=== PATIENT | male | born 1980 | race Caucasian/White ===

== ENCOUNTER 2018-11-17 16:39 | Emergency (ER) | payer MEDICAID, SELFPAY ==
[2018-11-17 16:39] VITALS: BP 152/73; PULSE 78; RESP 16; TEMP 36.6; O2SAT 100; BMI 29.0
--- NOTE | 2018-11-17 17:08 | CT_ITS ---
STUDY: CT ABDOMEN AND PELVIS WITHOUT CONTRAST REASON FOR EXAM: Male, 38 years old. Diffuse abdominal pain. Fever. RADIATION DOSAGE (If Supplied By Facility): CTDIvol = ( 9.22 ) mGy, DLP = ( 458.17 ) mGycm TECHNIQUE: Transaxial images were obtained from the dome of the diaphragm to the symphysis pubis without oral contrast, and without intravenous contrast. Sagittal and coronal images were reconstructed. Individualized dose optimization techniques were used for this CT. COMPARISON: 09/16/2016 FINDINGS: Evaluation of the abdominal viscera is limited in the absence of intravenous contrast. The visualized lung bases are clear. The visualized portions of the heart and pericardium are within normal limits. There are no calcified gallstones present. The liver demonstrates an unremarkable unenhanced appearance. The spleen is normal in size. The pancreas demonstrates an unremarkable unenhanced appearance. The adrenal glands are within normal limits. There are no renal or ureteral stones. There is no hydronephrosis. Normal visualized stomach. There is no bowel obstruction or inflammation. The appendix is visualized and appears normal. The aorta is normal in caliber. There is no abdominal or pelvic free air, free fluid, fluid collection or lymphadenopathy. There are no destructive osseous lesions. CT/Abdomen/Pelvis without Cont IMPRESSION: No acute abdominal or pelvic pathology demonstrated on this noncontrast CT. Electronically Signed: Hemant Marroquin, at 18:20 EST Tel , Service support ,
[2018-11-17] MEDS: 0.9% Normal Saline 1,000 ML 1000 ML IV (17:18)
[2018-11-17] MEDS: Ketorolac 30 MG/ML Syringe IV (17:18)
[2018-11-17] MEDS: Ondansetron 4 MG/2 ML Vial IV (17:18)
[2018-11-17 17:22] LABS: Absolute Lymphocyte Count 2.59 X10^3/ul (0.83-4.51); Absolute Neutrophil Count 2.5 X10^3/uL (2.0-7.7); Basophil# 0.03 X10^3/uL; Basophil% 0.5 % (0-1); Eosinophil# 0.08 X10^3/uL; Eosinophils% 1.4 % (0-5); Hematocrit 40.6 % (40-54); Hemoglobin 13.8 g/dl (13.0-16.5); Lymphocyte # 2.59 X10^3/ul (4.0); Lymphocyte % 45.4 % (19-41); Mean Corpuscular Hgb 29.7 pg (27.0-32.0); Mean Corpuscular Volume 87.3 fL (80-94); Mean Platelet Vol. 9.6 fl (6.2-12.0); Monocyte# 0.45 X10^3/uL; Monocyte% 7.9 % (0-10); Neutrophil # 2.54 X10^3/uL (2.7-7.7); Neutrophil % 44.6 % (47-70); POSITIVE COUNT NO; POSITIVE DIFFERENTIAL NO; POSITIVE MORPHOLOGY NO; Platelet Count 155 K/mm3 (150-450); RBC Distribution Width CV 12.4 % (11.6-14.6); RBC Distribution Width SD 38.7 fl (35.1-43.9); Red Blood Count 4.65 M/mm3 (4.6-6.2); White Blood Count 5.7 K/mm3 (4.4-11.0)
[2018-11-17 17:32] LABS: Anion Gap 7 (5-15); BUN 16 mg/dL (7-18); Calcium,Total 8.3 mg/dL (8.5-10.1); Chloride 108 mmol/L (98-107); Creatinine, Serum 0.94 mg/dL (0.70-1.30); EST Glomerular Filtration Rate 95 mL/min (>60); Est Glom Filt Rate - Afr Amer 115 mL/min (>60); Estimated Creatinine Clearance 99.62 ml/min; Glucose 89 mg/dL (74-106); Potassium 3.5 mmol/L (3.5-5.1); Sodium Level 140 mmol/L (136-145)
[2018-11-17 17:46] LABS: Bacteria 0 SEEN /hpf (None Seen); Mucous, Urine 0 SEEN /hpf (<or=2+); Red Blood Cells-Urine 0 SEEN /hpf (0-5); Squamous Epithelial Cells - UA 0 SEEN /hpf (0-5); White Blood Cells 0 SEEN /hpf (0-5)
[2018-11-17 17:53] LABS: Color, Urine Yellow (Yellow); Glucose, Dipstick Normal (Normal); Ketone-Dipstick Negative (Negative); Leukocyte Esterase-Dipstick Negative /ul (Negative); Nitrite-Dipstick Negative (Negative); Occult Blood-Urine Negative /ul (Negative); Protein-Dipstick Negative (Negative); Specific Gravity, Urine 1.015 (1.002-1.030); Urine Bilirubin Dipstick Negative (Negative); Urine Clarity Clear (Clear); Urine Urobilinogen Normal (Normal); Urine pH 6.5 (5.0 - 8.0)
[2018-11-17] MEDS: proMETHazine 25 MG/ML Syringe 6.25 MG IV (18:25)
[2018-11-17 19:39] VITALS: BP 110/65; PULSE 60; RESP 15; O2SAT 100
--- NOTE | 2018-11-17 20:00 | ED.DCSUM_ITS ---
- ER Visit Summary Date of Service: 11/17/18 Chief Complaint: Bilateral flank pain History of Present Illness: The patient is a 38 M reports lower back pain rating into the groin lines since last week. He was seen in urgent care on November 12. He states his urine had a small amount of blood in it. He was started on Bactrim. He still has pain and feels like his abdomen is bloated. He describes urinary frequency which is sometimes painful. Today pain seemed to radiate into the scrotum. He denies possibility of STD. He did have history of UTIs in the past. Physical Examination: Vital signs gross unremarkable. Patient sitting upright in bed. He is in no acute distress. Head neck examination normal. Heart is regular rate and rhythm. Lungs sounds are clear. Abdomen is soft with mild diffuse tenderness throughout. No guarding or rebound. Hypoactive bowel sounds noted. Test Results: CBC and chemistry studies normal. Urinalysis normal. CT flank shows no acute pathology. Emergency Department Course and Treatment: Patient was given Toradol and Zofran followed by dose of Phenergan for continued nausea. Postvoid residual was checked and is less than 19 cc. Test results are discussed with the patient. We discussed the possibility of a partially treated prostatitis and that he has been on Bactrim. We will continue this for a longer course and he is referred to urology for follow-up. Treatment Plan: [] Disposition: Discharge Impression: Flank pain This note was generated with [employer] dictation software. It may contain incorrect words, spelling, and punctuation that were not noted in review of the chart prior to signing ED Disposition - Plan for ED Patient: Referrals: Martha Fraga PA [Primary Care Provider] -
--- NOTE | 2018-11-17 20:00 | ED.DEP ---
ED Disposition - Plan for ED Patient: Disposition: Home or Assisted Living Instructions: ED Flank Pain Uncertain Cause Prescriptions: Ondansetron [Zofran Odt] 4 mg PO Q8H PRN PRN #10 tablet PRN Reason: Nausea Naproxen [Naprosyn] 500 mg PO BID PRN PRN #20 tablet PRN Reason: Pain Smz/Tmp Ds [Bactrim Ds] 1 tablet PO BID #28 tablet Referrals: Martha Fraga PA [Primary Care Provider] - Jsaiel Dunn MD [STAFF PHYSICIAN] - 1 Week
[2018-11-17 20:21] VITALS: PULSE 71; RESP 18; O2SAT 99
--- NOTE | 2018-11-17 20:23 | ED.RN ---
THIS NURSE REVIEWED D/C INSTRUCTIONS WITH PT. PT VERBALIZED UNDERSTANDING OF INSTRUCTIONS. IV D/C. IV CATHETER INTACT. PT TOLERATED WELL. PT DENIES FURTHER NEEDS OR QUESTIONS AT THIS TIME
== END 2018-11-17 20:24 | disposition home or self-care (01) ==
PROVIDERS: Emergency Provider Emergency Medicine; Family Provider Physician Assistant; PCP Physician Assistant
DX: R10.9 Unspecified abdominal pain (principal); M54.9 Dorsalgia, unspecified; R30.0 Dysuria; R35.0 Frequency of micturition; R11.0 Nausea; Z87.891 Personal history of nicotine dependence; Z87.440 Personal history of urinary (tract) infections
CPT/HCPCS: 74176; 80048; 81001; 85025; 96361; 96374; 96375; 99284; J7030; J2405

== ENCOUNTER 2020-10-30 23:41 | Emergency (ER) | payer MEDICAID, SELFPAY ==
[2020-10-30 23:42] VITALS: BP 125/74; PULSE 90; RESP 16; TEMP 36.4; O2SAT 98; BMI 28.2
--- NOTE | 2020-10-30 23:50 | ED.VIS.GEN ---
History of Present Illness Chief Complaint: Headache Informant: Patient Narrative: 40-year-old male presenting for evaluation of body aches, scratchy throat, headache, cough which is nonproductive. Patient states symptoms started on Friday. Patient has had a fever as high as 100 ?F. Patient does not have any shortness of breath, chest pain. No nausea, vomiting, diarrhea. Patient states that his children had a low-grade fever last week. He was sure that it was not coronavirus but did not have his child tested. Patient states child is now recovered. Nobody else is sick at home. Patient works in [email or web address] and has not had any exposure otherwise to Covid?19. Prior similar symptoms: No Recent Illness/Hospitalization: No Past Medical History - Allergies and Home Meds Allergies/Adverse Reactions: Allergies hydrocodone Adverse Reaction (Verified 10/30/20 23:45) Other oxycodone [Oxycodone] Adverse Reaction (Verified 10/30/20 23:45) Other Prior records reviewed: Yes Past Medical History: - - OCD, anxiety Lives: Spouse/ Significant Other Smoking Status: Current every day smoker Alcohol: None Drugs: None Review of Systems General: Reports: Fever Eyes: Denies: Visual changes - bilaterally, Diplopia ENT: Denies: Rhinorrhea, Sore throat Cardiovascular: Denies: Chest pain, Palpitations Respiratory: Reports: Cough. Denies: Dyspnea Gastrointestinal: Denies: Abdominal pain, Nausea, Vomiting, Diarrhea, Melena, Hematochezia Genitourinary: Denies: Dysuria, Hematuria, Frequency Musculoskeletal: Reports: Myalgias. Denies: Arthralgias Skin: Denies: Rash, Abscess Neurological: Reports: Headache. Denies: Parasthesia, Numbness Psych: Denies: Depression, Anxiety Endocrine: Denies: Polyuria, Polydipsia Physical Exam Vital Signs/Narrative: Vital Signs Temp Pulse Resp BP Pulse Ox 10/30/20 23:42 97.5 F L 90 16 125/74 H 98 Inital Vital Signs reviewed: Yes General: Well nourished, No Acute Distress Eyes: Perrl, EOMI ENT: Moist mucous membranes, No rhinorrhea Neck: Supple, Nontender Cardiovascular: Regular rate, Regular rhythm Respiratory: No distress, CTA bilaterally Abdomen: Soft, Nontender Extremities: Nontender, No edema Skin: Normal color, No rash Neurological: Alert, Oriented x3, Cranial nerves II-XII grossly intact Psychological: Normal affect, Normal Mood Diagnostic/Tx/Re-eval - Medical Decision Making Patient presenting with low-grade fever, myalgias, cough, headache. Patient likely exposed to Covid?19 by his child. Patient has no other sick contacts that he knows of. Patient will be tested for Covid?19 and will quarantine until test results return. Patient was given a shot of Toradol in ED for his headache. Patient given return precautions. Patient stable for discharge at this time. Impression: 1. Viral syndrome 2. Headache ED Disposition - Plan for ED Patient: Instructions: Coronavirus Disease 2019 (COVID-19): Overview, Coronavirus Disease 2019 (COVID-19): Caring for Yourself or Others, Pending Outpatient COVID Test
[2020-10-31] MEDS: Ketorolac 15 MG/ML Vial IM (00:10)
[2020-10-31 00:29] VITALS: PULSE 76; RESP 16; O2SAT 98
== END 2020-10-31 00:31 | disposition home or self-care (01) ==
PROVIDERS: Emergency Provider Student in an Organized Health Care Education/Training Program
DX: B34.9 Viral infection, unspecified (principal); R51.9 Headache, unspecified; F42.9 Obsessive-compulsive disorder, unspecified; F41.9 Anxiety disorder, unspecified; F17.200 Nicotine dependence, unspecified, uncomplicated; Z88.5 Allergy status to narcotic agent
CPT/HCPCS: 87635; 99282; U0005; U0003

== ENCOUNTER 2020-11-01 07:11 | Emergency (ER) | payer MEDICAID, SELFPAY ==
[2020-11-01 07:12] VITALS: BP 116/75; PULSE 86; RESP 16; TEMP 36.3; O2SAT 96; BMI 30.4
[2020-11-01 07:30] VITALS: O2SAT 98
--- NOTE | 2020-11-01 07:35 | RAD_ITS ---
STUDY: X-RAY CHEST REASON FOR EXAM: Male, 40 years old. sob, cough, covid postive yesterday TECHNIQUE: Single AP portable view of the chest. COMPARISON: 08/29/2015. FINDINGS: Cardiac silhouette unremarkable. Minimal congestion. Aorta unremarkable. No focal patchy airspace opacities. No pleural effusions. Upper abdomen unremarkable. Osseous structures intact. No pneumothorax. RAD/Chest 1 View (Portable) IMPRESSION: No focal patchy airspace opacities or effusions Minimal congestion Electronically Signed: Shiv Krueger DO at 8:03 EST Tel , Service support ,
--- NOTE | 2020-11-01 07:51 | ED.DCSUM_ITS ---
History of Present Illness Chief Complaint: Shortness of Breath Informant: Patient Onset: Days - Patient states respiratory symptoms started Friday. Context: Sudden Onset Timing: Continuous Quality: Upper respiratory with productive cough Location: Respiratory Current Severity: Moderate Maximum Severity: Severe Worsened by: Anxiety and Covid dyspnea Relieved by: Nothing Associated Symptoms: Cough productive of colored sputum Narrative: Is a 40-year-old male who works from home. He was seen on Friday. Covid test is pending. He went to [facility] yesterday and was informed that his Covid test was positive. He does report headache. Eyes photophobia, neck pain or neck stiffness. He reports mild congestion. He denies loss of taste or smell. He denies ear pain, drainage or ringing in his ears. He does report shortness of breath. The shortness of breath is worse with activity. He denies history of VTE. He denies leg pain, swelling discoloration. He denies nausea, vomiting diarrhea. He denies rash. He denies discoloration of his digits upper or lower extremity. He denies allergy to antibiotics. Prior similar symptoms: Yes Recent Illness/Hospitalization: Yes - Past Medical History (1) 2019 novel coronavirus disease (COVID-19) Status: Acute Past Medical History - Allergies and Home Meds Allergies/Adverse Reactions: Allergies hydrocodone Adverse Reaction (Verified 11/01/20 07:12) Other oxycodone [Oxycodone] Adverse Reaction (Verified 11/01/20 07:12) Other Primary Care Physician: LEWIS MEJIA [Other] Prior records reviewed: Yes Surgical History: no surgical history Lives: Alone Smoking Status: Never smoker Alcohol: None Drugs: None Review of Systems General: Reports: Malaise. Denies: Chills, Fever, Subjective, Sweats Eyes: Denies: Visual changes - bilaterally, Blurred Vision - bilaterally, Diplopia ENT: Reports: Rhinorrhea, Sore throat. Denies: Bilateral ear pain Cardiovascular: Denies: Chest pain, Palpitations Respiratory: Reports: Dyspnea, Cough, Sputum, Dyspnea on exertion. Denies: Orthopnea, Paroxysmal nocturnal dyspnea Gastrointestinal: Denies: Abdominal pain, Nausea, Vomiting, Diarrhea, Melena, Hematochezia Genitourinary: Denies: Dysuria, Hematuria, Frequency Musculoskeletal: Reports: Myalgias, Arthralgias. Denies: Neck pain, Back pain, Swelling, Extremity Pain Skin: Denies: Rash, Wounds Neurological: Reports: Headache. Denies: Weakness, Parasthesia Psych: Reports: Depression Endocrine: Denies: Polyuria, Polydipsia Hematologic: Denies: Easy bruising, Easy bleeding Physical Exam Vital Signs/Narrative: Vital Signs Temp Pulse Resp BP Pulse Ox 11/01/20 07:12 97.3 F L 86 16 116/75 96 Inital Vital Signs reviewed: Yes General: Well nourished, Well developed, Acute Distress - Patient appears anxious. Patient arrived in [facility] with zita mccoy. Head: Normocephalic, Atraumatic Eyes: Perrl, EOMI. Negative for: Pale conjunctiva, Scleral icterus ENT: Moist mucous membranes, TM's clear. Negative for: No rhinorrhea Neck: Supple, Nontender, No lymphadenopathy, No JVD Cardiovascular: Regular rate, Regular rhythm, No murmurs, Normal S1, Normal S2 Respiratory: No distress, Chest nontender, Rales - Lower lobe on the right. Negative for: CTA bilaterally Abdomen: Soft, Nontender, Nondistended, Normal bowel sounds Back: Nontender, Normal Inspection Extremities: Nontender, No edema, - - There is no asymmetry, swelling, discoloration, leg vein distention, palpable cords or tenderness along the distribution of the deep venous system. Skin: Normal color, No rash, No Trauma. Negative for: Cyanosis, Diaphoresis, Jaundice Neurological: Alert, Oriented x3, Cranial nerves II-XII grossly intact, Normal Strength, Normal Sensation Psychological: - - Patient is animated. Diagnostic/Tx/Re-eval Chest X-Ray - ED: 1 View, Read by ED Physician, Normal, Heart, Mediastinum, Bony Structures, - - X-rays interpreted by me at 0750. Single portable view. There is increased interstitial markings right lower lobe consistent with Covid pneumonia. 11/01/20 07:35 Chest 1 View (Portable) [RAD] Stat - Medical Decision Making Clinically patient has Covid pneumonia. Vital signs are unremarkable. Patient does not meet criteria for monoclonal antibody treatment. Chest x-ray was obtained to evaluate for infiltrate. Since patient does have infiltrate he was treated with Decadron and discharged with prescription for Decadron. Patient was informed he may have symptoms for 5-10 more days. Charge with appropriate home-going instructions for Covid. ED Disposition - Plan for ED Patient: Disposition: Home or Assisted Living Diagnosis: Pneumonia due to COVID-19 virus Instructions: Coronavirus Disease 2019 (COVID-19): Caring for Yourself or Others Prescriptions: Dexamethasone [Decadron] 6 mg PO DAILY 5 Days tab Prescription Printed Referrals: LEWIS MEJIA [Other] - 10-14 Days if not better
[2020-11-01 08:10] VITALS: BP 124/69; PULSE 77; RESP 15; O2SAT 98
[2020-11-01] MEDS: dexAMETHasone 4 MG Tablet 6 MG PO (08:10)
== END 2020-11-01 08:19 | disposition home or self-care (01) ==
LOC: ED 08:17
PROVIDERS: Emergency Provider Emergency Medicine
DX: U07.1 COVID-19 (principal); J12.82 Pneumonia due to coronavirus disease 2019; Z88.5 Allergy status to narcotic agent
CPT/HCPCS: 71045; 99284

== ENCOUNTER 2022-02-11 07:46 | Emergency (ER) | payer MEDICAID, SELFPAY ==
[2022-02-11 07:47] VITALS: BP 108/90; PULSE 107; RESP 16; TEMP 36.4; O2SAT 95; BMI 25.0
--- NOTE | 2022-02-11 08:08 | RAD_ITS ---
STUDY: X-RAY - LEFT FOOT CLINICAL: Male, 41 years old. Injury/Pain to the great toe. TECHNIQUE: 3 view(s) of the foot. COMPARISON: None. FINDINGS: Normal talus, calcaneus, and tarsal bones. Normal visualized subtalar, talonavicular, calcaneocuboid, tarsal and tarsometatarsal articulations. Normal metatarsi. Normal metatarsophalangeal joint of the great toe. Normal tibial and fibular sesamoid bones. Normal interphalangeal joint of the great toe. Normal phalanges of the great toe. Normal second through fifth metatarsophalangeal joints. Normal interphalangeal joints and phalanges of the lesser toes. Soft tissue swelling. RAD/Foot min 3 Views IMPRESSION: Soft tissue swelling. No fracture is seen. Electronically Signed: Deshaun Santillan MD at 8:28 EDT ,
--- NOTE | 2022-02-11 08:09 | ED.VIS.LOWEX ---
HPI History of Present Illness Chief Complaint: Lower Extremity Injury Informant: patient Narrative Narrative: Patient is presenting with left great toe injury. Patient states he stubbed left great toe on a step this morning. Went to put his shoe on and had pain and everything felt wet. Took the shoe off and realized the nail was coming off the great toe and there is bleeding. Denies any prior injuries to this area. Denies any numbness or tingling. No other injuries or complaints reported. Came to the emergency room for further evaluation. Did not take anything for pain prior to arrival. Tetanus Immunization: Unknown PFSH PFSH Home Medications fluvoxamine 150 mg PO QHS 09/16/16 [History Last Taken Unknown] dexamethasone 6 mg PO DAILY 5 Days tab 11/01/20 [Rx Last Taken Unknown] ibuprofen 600 mg PO Q6H PRN PRN #20 tab 02/11/22 [Rx Last Taken Unknown] tramadol 50 mg PO Q8H PRN #9 tab 02/11/22 [Rx Last Taken Unknown] Allergy/AdvReac Type Severity Reaction Status Date / Time hydrocodone AdvReac Other Verified 02/11/22 07:54 oxycodone [Oxycodone] AdvReac Other Verified 02/11/22 07:54 Social History Smoking Status: Never smoker ROS ROS ED Constitutional Constitutional ED: Denies chills or fever(s) Eyes Eyes: Denies blurry vision ENT ENT ED: Denies sore throat Cardiovascular Cardiovascular: Denies chest pain Respiratory/Chest Respiratory/Chest: Denies dyspnea Gastrointestinal Gastrointestinal: Denies nausea or vomiting Musculoskeletal Musculoskeletal: Reports other Details: Left foot pain Integumentary Reports Abrasions and other Details: Injury to the left great toenail Neurologic Neurologic: Denies paresthesias or weakness Hematologic/Lymphatic Hematologic/Lymphatic: Denies easy bleeding or easy bruising EXAM Physical Exam Const Vital Signs: 02/11/22 07:47 Temperature 97.5 F L Temperature Source Temporal Pulse Rate 107 H Respiratory Rate 16 Blood Pressure 108/90 H Blood Pressure Mean 96 Pulse Ox 95 Oxygen Delivery Method Room Air Positive well nourished and well developed General Appearance ED: well developed and NAD HEENT normocephalic and atraumatic Neck full ROM and supple Chest Wall inspection of chest normal Resp normal respiratory effort and clear to auscultation bilaterally Cardio regular rate, regular rhythm and no murmurs Cardio Narrative: 2+ DP pulse on the left foot Extremity full ROM Extremity Narrative: No obvious deformity of the left great toe. Movement intact. General Extremety ED: Negative for edema General Extremity: Negative for edema Neuro oriented x3 Sensorium / Orientation: alert Psych mental status grossly normal Skin Skin Narrative: Patient is partial avulsion of the left great toenail with underlying bleeding. There is a 1 cm laceration to the medial nail bed as well. No active bleeding at this time appreciated. MDM MDM MDM Narrative Medical decision making narrative: Patient is evaluated for injury to the left great toe nail. Patient appears nontoxic but anxious and uncomfortable. Initially is given Motrin and tetanus is updated. Patient appears to have a nail avulsion of the left great toe. X-ray obtained does not show any acute fracture. X-ray interpreted by myself as well as radiology. Areas anesthetized with a digital block using lidocaine. Patient tolerated this relatively well. Nail is fully removed using pressure and there is not appear to be any significant lacerations associated with this. Xeroform and bandage applied and patient is given a postop shoe. Is given podiatry for outpatient follow-up. Given a dose of tramadol prior to discharge. Prescription for Motrin 600 mg and tramadol is sent. Patient's reaction to oxycodone and hydrocodone is altered mental state so we will trial tramadol instead. Counseled on return precautions. Patient verbalizes agreement understand this plan. Discharged home in stable condition. Radiography Diagnostic Testing: Clinical Impression(s) from Imaging Studies Foot X-Ray 02/11/22 08:08 IMPRESSION: Soft tissue swelling. No fracture is seen. Electronically Signed: Deshaun Santillan MD at 8:28 EDT , Discharge Plan Triage Chief Complaint: Lower Extremity Injury ED Provider: Fani Tafoya Dx/Rx/DC Orders Instructions: ED Detached Fingernail or Toenail Prescriptions: New tramadol 50 mg tablet 50 mg PO Q8H PRN (Reason: pain) Qty: 9 RF: 0 ibuprofen 600 mg tablet 600 mg PO Q6H PRN PRN (Reason: fever or pain) Qty: 20 RF: 0 No Action fluvoxamine 50 MG tablet 150 mg PO QHS RF: 0 dexamethasone 6 MG tablet 6 mg PO DAILY 5 Days RF: 0 Primary Care Provider: Care Physician,No Primary Referrals: Angela Buitrago DPM [STAFF PHYSICIAN] - Care Physician,No Primary [Primary Care Provider] - Disposition Disposition: Home, Self Care Discharge Date/Time: 02/11/22 10:43
[2022-02-11] MEDS: Ibuprofen 600 MG Tablet PO (08:11)
[2022-02-11] MEDS: Lidocaine 1% (20 ml mdv) 20 ML Vial INFILT (08:16)
[2022-02-11] MEDS: Diphth,Pertuss(Acell),Tet Vac 0.5 ML Vial IM (09:31)
[2022-02-11] MEDS: traMADol 50 MG Tablet PO (10:33)
== END 2022-02-11 10:43 | disposition home or self-care (01) ==
PROVIDERS: Emergency Provider Emergency Medicine; Visit Provider Emergency Medicine
DX: S91.112A Laceration without foreign body of left great toe without damage to nail, initial encounter (principal); Z23 Encounter for immunization; W18.40XA Slipping, tripping and stumbling without falling, unspecified, initial encounter
CPT/HCPCS: 64450; 73630; 90471; 90715; 99285

== ENCOUNTER 2023-01-06 22:15 | Emergency (ER) | payer MEDICAID, SELFPAY ==
[2023-01-06 22:16] VITALS: BP 117/67; PULSE 76; RESP 20; TEMP 36.9; O2SAT 100; BMI 31.6
--- NOTE | 2023-01-06 23:25 | CT_ITS ---
INDICATION: headache EXAMINATION: CT FACIAL BONES - CT Maxillofacial W/O Contrast Injection TECHNIQUE: Helically acquired images were obtained of the facial bones. A radiation dose optimization technique was used for this scan. IV Contrast dosage and agent: None. COMPARISON: None. FINDINGS: SOFT TISSUES: No focal subcutaneous swelling. No discrete fluid collections. VISUALIZED PARANASAL SINUSES: Clear. VISUALIZED MASTOID AIR CELLS: Clear. FACIAL BONES, MANDIBLE AND TMJs: No displaced facial bone fracture. No lytic or blastic abnormality. VISUALIZED DENTITION: No periodontal osseous erosion. ORBITAL CONTENTS: Both globes, extraocular muscles and retrobulbar fat appear unremarkable. CT/Sinus/Facial Bone IMPRESSION: Unremarkable CT of the facial bones. Electronically Signed: Radha Deng MD at 0:10 EDT ,
[2023-01-06] MEDS: 0.9% Normal Saline 1,000 ML 999 ML IV (23:46)
[2023-01-06] MEDS: DiphenhydrAMINE 50 MG/ML Syringe 25 MG IV (23:46)
[2023-01-06] MEDS: dexAMETHasone 10 MG/ML Vial IV (23:47)
[2023-01-06] MEDS: Ketorolac 30 MG/ML Syringe IV (23:49)
[2023-01-06 23:56] LABS: Mucous, Urine 0 SEEN /hpf (<or=2+); Red Blood Cells-Urine 0 SEEN /hpf (0-5); White Blood Cells 0 SEEN /hpf (0-5)
[2023-01-06 23:57] LABS: Absolute Lymphocyte Count 2.33 X10^3/uL (0.83-4.51); Absolute Neutrophil Count 5.6 X10^3/uL (2.0-7.7); Basophil# 0.04 X10^3/uL; Basophil% 0.5 % (0-1); Eosinophil# 0.11 X10^3/uL; Eosinophils% 1.3 % (0-5); Hematocrit 39.1 % (40-54); Hemoglobin 13.6 g/dL (13.0-16.5); Lymphocyte # 2.33 X10^3/ul (0.83-4.51); Mean Corp Hgb Conc 34.8 g/dL (32-36); Mean Corpuscular Hgb 31.3 pg (27.0-32.0); Mean Corpuscular Volume 90.1 fL (80-94); Monocyte# 0.48 X10^3/uL; Monocyte% 5.6 % (0-10); NRBC Flagged by Analyzer 0 % (0-5); Neutrophil # 5.62 X10^3/uL (2.7-7.7); Neutrophil % 65.1 % (47-70); Platelet Count 199 K/mm3 (150-450); RBC Distribution Width SD 39.1 fl (35.1-43.9); Red Blood Count 4.34 M/mm3 (4.6-6.2); White Blood Count 8.6 K/mm3 (4.4-11.0)
[2023-01-06 23:58] LABS: Color, Urine Yellow (Yellow); Glucose, Dipstick Normal (Normal); Ketone-Dipstick Negative (Negative); Leukocyte Esterase-Dipstick Negative /ul (Negative); Nitrite-Dipstick Negative (Negative); Occult Blood-Urine Negative /ul (Negative); Protein-Dipstick Negative (Negative); Urine Bilirubin Dipstick Negative (Negative); Urine Clarity Clear (Clear); Urine Urobilinogen Normal (Normal)
[2023-01-07 00:06] LABS: Squamous Epithelial Cells - UA 0-5 SEEN /hpf (0-5)
[2023-01-07 00:07] LABS: Bacteria RARE /hpf (None Seen)
[2023-01-07 00:24] LABS: AST(SGOT) 19 U/L (15-37); Alanine Aminotransfer ALT/SGPT 43 U/L (16-61); Albumin, Serum 3.8 g/dL (3.2-5.0); Alkaline Phosphatase 57 U/L (45-117); Anion Gap 3 (5-15); BUN 13 mg/dL (7-18); BUN/Creat Ratio 17.3 RATIO (10-20); Bilirubin, Direct 0.12 mg/dL (0.00-0.30); Calcium,Total 8.5 mg/dL (8.5-10.1); Chloride 106 mmol/L (98-107); Creatinine, Serum 0.75 mg/dL (0.70-1.30); EST Glomerular Filtration Rate 121 mL/min (>60); Est Glom Filt Rate - Afr Amer 146 mL/min (>60); Estimated Creatinine Clearance 115.79 ml/min; Globulin 3.8 g/dL (2.2-4.2); Glucose 138 mg/dL (74-106); Lipase 66 U/L (73-393); Potassium 3.8 mmol/L (3.5-5.1); Protein, Total 7.6 g/dL (6.4-8.2); Sodium Level 137 mmol/L (136-145)
--- NOTE | 2023-01-07 01:17 | EX.ED.DYSGE1 ---
HPI History of Present Illness Chief Complaint: Headache Narrative Narrative: Patient is a 42-year-old male transitioning to female. She states that roughly 1 week ago she had urinary urgency and frequency and some abdominal pain and felt like she may have had a urinary tract infection. She states those symptoms seem to improve but then she developed sinus congestion and diffuse headache. She reports that there is no recent trauma and that the headache is sensitive to light and sound but she has no true history of migraine headache. She reports she has taken medication without symptom improvement and therefore comes in for evaluation [facility] Home Medications fluvoxamine 50 mg tablet 150 mg PO QHS 09/16/16 [History Last Taken Unknown] dexamethasone 6 mg tablet 6 mg PO DAILY 5 days 11/01/20 [Rx Last Taken Unknown] ibuprofen 600 mg tablet 600 mg PO Q6H PRN PRN fever or pain #20 tabs 02/11/22 [Rx Last Taken Unknown] tramadol 50 mg tablet 50 mg PO Q8H PRN pain #9 tabs 02/11/22 [Rx Last Taken Unknown] Allergy/AdvReac Type Severity Reaction Status Date / Time hydrocodone AdvReac Other Verified 01/06/23 22:46 oxycodone [Oxycodone] AdvReac Other Verified 01/06/23 22:46 Social History Smoking Status: Never smoker ROS ROS ED Constitutional Constitutional ED: Denies chills or fever(s) Eyes Eyes: Reports other Details: Positive photophobia ENT ENT ED: Denies sore throat Cardiovascular Cardiovascular: Denies chest pain Respiratory/Chest Respiratory/Chest: Denies cough or dyspnea Gastrointestinal Gastrointestinal: Reports abdominal pain and nausea; Denies diarrhea or vomiting Genitourinary Genitourinary ED: Reports urinary frequency; Denies dysuria Musculoskeletal Musculoskeletal: Reports back pain and myalgias Integumentary Denies rash Neurologic Neurologic: Reports headache(s); Denies paresthesias or weakness Hematologic/Lymphatic Hematologic/Lymphatic: Denies easy bleeding or easy bruising EXAM Physical Exam Const Vital Signs: 01/06/23 22:16 Temperature 98.4 F Temperature Source Temporal Pulse Rate 76 Respiratory Rate 20 H Blood Pressure 117/67 Blood Pressure Mean 83 Pulse Ox 100 Oxygen Delivery Method Room Air Positive well nourished and well developed General Appearance ED: well developed HEENT Reports moist mucous membranes HEENT Narrative: Patient has diffuse pain with palpation of the bilateral maxillary frontal ethmoid and sphenoid sinuses Eyes PERRL and EOMs intact bilaterally Neck supple Neck Narrative: No nuchal rigidity or meningeal signs noted Resp normal respiratory effort and clear to auscultation bilaterally Cardio regular rate and regular rhythm Rate: other Other Details: Radial pulses are plus 2 out of 4 bilaterally are equal and symmetric GI non-distended GI Narrative: Abdomen is soft and nondistended with normal active bowel sounds there is mild increased pain with palpation in the midepigastric region without voluntary guarding or rigidity Auscultation: normoactive bowel sounds Palpation: soft Back/Spine no CVA tenderness Extremity normal to inspection Neuro oriented x3 and CN's II-XII intact bilaterally Neuro Narrative: Cranial nerves II through XII are grossly intact there are no focal neurologic deficits. No pronator drift no dysmetria no truncal ataxia. NIH stroke scale score of 0 Sensorium / Orientation: alert Psych Psych Narrative: Patient has a flat affect Skin no rashes or lesions noted MDM MDM MDM Narrative Medical decision making narrative: Patient presented to the ER with multiple complaints and secondary to his differential is broad and includes migraine headache acute sinusitis urinary tract infection pyelonephritis biliary colic or pancreatitis. Secondary to this a CT scan of the sinuses as well as basic laboratory studies with UA were obtained. CT scan revealed no signs of bony destruction or air-fluid levels to suggest acute bacterial sinusitis. Labs revealed no clinically significant findings and showed no changes consistent with acute kidney injury or severe electrolyte derangement. Patient was given Decadron IV fluids Toradol Benadryl and Reglan and did report moderate improvement of her headache. On reevaluation neuro exam remains normal but patient states she still does not feel well enough to go home and therefore a dose of morphine was added. Following this the patient's pain resolved and her neuro exam remained normal and therefore with negative work-up and resolution of pain she is safe for discharge History & Record Review Discussion w/independent historian: Patient and Friend Lab Data Attestation: I reviewed the patient's lab results. Labs: Laboratory Results - last 24 hr 01/06/23 01/06/23 01/06/23 23:29 23:50 23:50 WBC 8.6 RBC 4.34 L Hgb 13.6 Hct 39.1 L MCV 90.1 MCH 31.3 MCHC 34.8 RDW Std Deviation 39.1 RDW Coeff of Wan 12.0 Plt Count 199 MPV 10.0 Immature Gran % (Auto) 0.500 Neut % (Auto) 65.1 Lymph % (Auto) 27.0 [place] % (Auto) 5.6 Eos % (Auto) 1.3 Baso % (Auto) 0.5 Absolute Neuts (auto) 5.6 Absolute Lymphs (auto) 2.33 Nucleated RBC % 0 Sodium 137 Potassium 3.8 Chloride 106 Carbon Dioxide 28.0 Anion Gap 3 L BUN 13 Creatinine 0.75 Estim Creat Clear Calc 115.79 Est GFR (MDRD) Af Amer 146 Est GFR (MDRD) Non-Af 121 BUN/Creatinine Ratio 17.3 Glucose 138 H Calcium 8.5 Total Bilirubin 0.40 Direct Bilirubin 0.12 AST 19 ALT 43 Alkaline Phosphatase 57 Total Protein 7.6 Albumin 3.8 Globulin 3.8 Lipase 66 L Urine Color Yellow Urine Clarity Clear Urine pH 6.0 Ur Specific [place] 1.020 Urine Protein Negative Urine Glucose (UA) Normal Urine Ketones Negative Urine Occult Blood Negative Urine Nitrite Negative Urine Bilirubin Negative Urine Urobilinogen Normal Ur Leukocyte Esterase Negative Urine RBC 0 SEEN Urine WBC 0 SEEN Ur Squamous Epith Cells 0-5 SEEN Urine Bacteria RARE Urine Mucus 0 SEEN Radiography Diagnostic Testing: Clinical Impression(s) from Imaging Studies Facial/Sinus 01/06/23 23:25 IMPRESSION: Unremarkable CT of the facial bones. Electronically Signed: Radha Deng MD at 0:10 EDT Reading Location ID and State: [facility] / [place] Tel , Service support , Discharge Plan Triage Chief Complaint: Headache ED Provider: Ankit Malloy Dx/Rx/DC Orders Clinical Impression: Sinus headache, Urinary frequency Instructions: ED Sinus Headache Prescriptions: No Action fluvoxamine 50 MG tablet 150 mg PO QHS dexamethasone 6 MG tablet 6 mg PO DAILY 5 Days 0RF tramadol 50 mg tablet 50 mg PO Q8H PRN (Reason: pain) Qty: 9 0RF ibuprofen 600 mg tablet 600 mg PO Q6H PRN PRN (Reason: fever or pain) Qty: 20 0RF Stand Alone Forms: ED Work / School Excuse Primary Care Provider: ERON MCGRAW Referrals: ERON MCGRAW [Other] Activity Restrictions/Additional Instructions: Your work-up today showed no obvious signs of sinus infection on your CAT scan and your lab work shows no signs of dysfunction of your gallbladder or pancreas or liver and your urine shows no blood to suggest kidney stone or signs of infection. Disposition Disposition: Home, Self Care Discharge Date/Time: 01/07/23 01:36
[2023-01-07] MEDS: Ondansetron 4 MG/2 ML Vial IV (01:29)
[2023-01-07] MEDS: Morphine 4 MG/ML Syringe IV (01:29)
== END 2023-01-07 01:36 | disposition home or self-care (01) ==
PROVIDERS: Emergency Provider Emergency Medicine; Visit Provider Emergency Medicine
DX: G44.89 Other headache syndrome (principal); R35.0 Frequency of micturition
CPT/HCPCS: 70486; 80048; 80076; 81001; 83690; 85025; 99283; J7030; A4216; J2405

== ENCOUNTER 2023-02-24 23:51 | Emergency (ER) | payer MEDICAID, SELFPAY ==
[2023-02-24 23:52] VITALS: BP 144/68; PULSE 78; RESP 16; TEMP 36.6; O2SAT 98; BMI 31.6
[2023-02-25] MEDS: Morphine 4 MG/ML Syringe 6 MG IM (00:20)
[2023-02-25] MEDS: Ondansetron ODT 4 MG Tablet PO (00:20)
--- NOTE | 2023-02-25 00:25 | RAD_ITS ---
INDICATION: pain EXAMINATION/TECHNIQUE: X-RAY - LEFT XR Forearm 2 Views 2 VIEWS COMPARISON: FINDINGS: SOFT TISSUES: No soft tissue swelling or gas. No radiopaque foreign body. BONES/JOINTS: No acute fracture or subluxation.. Normal alignment. Preservation of the joint space.. No sclerotic or destructive changes observed. RAD/Forearm 2 Views IMPRESSION: Negative. Electronically Signed: Radha Deng MD at 0:38 EDT ,
--- NOTE | 2023-02-25 00:28 | RAD_ITS ---
INDICATION: pain EXAMINATION/TECHNIQUE: X-RAY - LEFT XR Wrist Min 3 Views 3 VIEWS COMPARISON: FINDINGS: SOFT TISSUES: No soft tissue swelling or gas. No radiopaque foreign body. BONES/JOINTS: No acute fracture or subluxation.. Normal alignment. Preservation of the joint space.. No sclerotic or destructive changes observed. RAD/Wrist min 3 Views IMPRESSION: Negative. Electronically Signed: Radha Deng MD at 0:43 EDT ,
--- NOTE | 2023-02-25 00:59 | EX.ED.UPPERE ---
HPI History of Present Illness Chief Complaint: Upper Extremity Injury Narrative Narrative: Patient is a [id number] 42-year-old who states that roughly 1 hour prior to arrival she was walking down the stairs with her blind dog when she slipped and fell landing on her left hand/wrist. She states she is unsure if it was a fall on outstretched hand or flexed up underneath her all she knows is that she landed on it and that it hurt. She denies striking her head or any loss of consciousness denies any blood thinner use or history of bleeding disorder. Over the past hour the wrist has been swollen and painful with motion and with concern for fracture she presents for evaluation. PFSH PFSH Home Medications fluvoxamine 50 mg tablet 150 mg PO QHS 09/16/16 [History Last Taken Unknown] dexamethasone 6 mg tablet 6 mg PO DAILY 5 days 11/01/20 [Rx Last Taken Unknown] ibuprofen 600 mg tablet 600 mg PO Q6H PRN PRN fever or pain #20 tabs 02/11/22 [Rx Last Taken Unknown] tramadol 50 mg tablet 50 mg PO Q8H PRN pain #9 tabs 02/11/22 [Rx Last Taken Unknown] oxycodone-acetaminophen 5 mg-325 mg tablet (Percocet) 1 tab PO Q6H PRN pain 3 days #12 tabs 02/25/23 [Rx Last Taken Unknown] Allergy/AdvReac Type Severity Reaction Status Date / Time hydrocodone AdvReac Other Verified 02/24/23 23:53 oxycodone [Oxycodone] AdvReac Other Verified 02/24/23 23:53 Social History Smoking Status: Never smoker [facility] ED Constitutional Constitutional ED: Denies chills or fever(s) Eyes Eyes: Denies change in vision ENT ENT ED: Denies sore throat Cardiovascular Cardiovascular: Denies chest pain Respiratory/Chest Respiratory/Chest: Denies cough or dyspnea Gastrointestinal Gastrointestinal: Denies abdominal pain, diarrhea, nausea or vomiting Genitourinary Genitourinary ED: Denies dysuria Musculoskeletal Musculoskeletal: Reports other Details: Positive left wrist/forearm pain ; Denies back pain or neck pain Integumentary Denies Abrasions or rash Neurologic Neurologic: Denies headache(s), paresthesias or weakness Hematologic/Lymphatic Hematologic/Lymphatic: Denies easy bleeding or easy bruising EXAM Physical Exam Const Vital Signs: 02/24/23 23:52 Temperature 97.9 F Temperature Source Temporal Pulse Rate 78 Respiratory Rate 16 Blood Pressure 144/68 H Blood Pressure Mean 93 Pulse Ox 98 Oxygen Delivery Method Room Air Positive well nourished and well developed General Appearance ED: well developed HEENT HEENT Narrative: Normocephalic atraumatic Eyes PERRL and EOMs intact bilaterally Neck full ROM and supple Neck Narrative: No bony deformity or step-off of the cervical spine no midline pain on palpation Resp normal respiratory effort and clear to auscultation bilaterally Cardio regular rate and regular rhythm Back/Spine Back/Spine Narrative: No bony deformity or step-off of the thoracic or lumbar spine no midline pain with palpation Extremity Extremity Narrative: Left upper extremity is neurovascularly intact; AIN/PIN are intact and normal. Active range of motion is decreased secondary to pain. There is soft tissue swelling and faint ecchymosis along the lateral aspect of the distal third of the forearm near the ulnar styloid. There is pain to palpation at the site. No obvious bony deformity or joint effusion however. No pain in the anatomical snuffbox. Patient has full active range of motion at the elbow joint without any type of pain with palpation. Neuro oriented x3 and CN's II-XII intact bilaterally Sensorium / Orientation: alert Psych mental status grossly normal Skin Skin Narrative: Soft tissue swelling with faint ecchymosis along the lateral aspect of the left distal forearm/wrist as documented above MDM MDM MDM Narrative Medical decision making narrative: Patient presented to the ER with report of mechanical fall and therefore I felt no need for cardiac or syncope work-up. Differential diagnosis includes forearm/wrist contusion versus wrist sprain versus distal ulnar fracture or wrist fracture. X-rays are obtained of the wrist and forearm secondary to this. They revealed no acute fracture dislocation or foreign body. This indicates patient has a wrist sprain and contusion. She was given symptomatic care secondary to this and is otherwise safe for discharge as she is neurovascularly intact without signs of compartment syndrome or neurovascular compromise. History & Record Review Discussion w/independent historian: Patient and Significant other Radiography Diagnostic Testing: Clinical Impression(s) from Imaging Studies Forearm X-Ray 02/25/23 00:25 IMPRESSION: Negative. Electronically Signed: Radha Deng MD at 0:38 EDT , Wrist X-Ray 02/25/23 00:28 IMPRESSION: Negative. Electronically Signed: Radha Deng MD at 0:43 EDT , X-ray of the left forearm and left wrist as interpreted by the emergency medicine physician reveals no acute fracture or dislocation or foreign body or joint effusion. Discharge Plan Triage Chief Complaint: Upper Extremity Injury ED Provider: Ankit Malloy Dx/Rx/DC Orders Clinical Impression: Contusion of left wrist, initial encounter, Left wrist sprain Instructions: Bone Contusion, ED Wrist Sprain Prescriptions: New oxycodone-acetaminophen [Percocet] 5-325 mg tablet 1 tab PO Q6H PRN (Reason: pain) 3 Days Qty: 12 0RF No Action fluvoxamine 50 MG tablet 150 mg PO QHS dexamethasone 6 MG tablet 6 mg PO DAILY 5 Days 0RF tramadol 50 mg tablet 50 mg PO Q8H PRN (Reason: pain) Qty: 9 0RF ibuprofen 600 mg tablet 600 mg PO Q6H PRN PRN (Reason: fever or pain) Qty: 20 0RF Stand Alone Forms: ED Work / School Excuse Primary Care Provider: ERON MCGRAW Referrals: ERON MCGRAW [Other] Activity Restrictions/Additional Instructions: Please wear your Parish wrap for compression and your brace for stabilization/support. Continue to ice the area to reduce pain and speed healing. If you have further concerns or no improvement of symptoms after 1 week please return for repeat evaluation Disposition Disposition: Home, Self Care
== END 2023-02-25 01:52 | disposition home or self-care (01) ==
PROVIDERS: Emergency Provider Emergency Medicine; Visit Provider Emergency Medicine
DX: S60.212A Contusion of left wrist, initial encounter (principal); S63.502A Unspecified sprain of left wrist, initial encounter; W10.9XXA Fall (on) (from) unspecified stairs and steps, initial encounter
CPT/HCPCS: 73090; 73110; 99283

== ENCOUNTER 2023-05-18 18:43 | Emergency (ER) | payer MEDICAID, SELFPAY ==
[2023-05-18 18:44] VITALS: BP 127/81; PULSE 79; RESP 16; TEMP 36.6; O2SAT 97
--- NOTE | 2023-05-18 18:49 | EX.ED.DYSGE1 ---
HPI History of Present Illness Chief Complaint: Lower Extremity Injury PFSH PFS Medical History no medical history Home Medications fluvoxamine 50 mg tablet 150 mg PO QHS 09/16/16 [History Last Taken Unknown] dexamethasone 6 mg tablet 6 mg PO DAILY 5 days 11/01/20 [Rx Last Taken Unknown] ibuprofen 600 mg tablet 600 mg PO Q6H PRN PRN fever or pain #20 tabs 02/11/22 [Rx Last Taken Unknown] tramadol 50 mg tablet 50 mg PO Q8H PRN pain #9 tabs 02/11/22 [Rx Last Taken Unknown] oxycodone-acetaminophen 5 mg-325 mg tablet (Percocet) 1 tab PO Q6H PRN pain 3 days #12 tabs 02/25/23 [Rx Last Taken Unknown] Allergy/AdvReac Type Severity Reaction Status Date / Time hydrocodone AdvReac Other Verified 05/18/23 18:46 oxycodone [Oxycodone] AdvReac Other Verified 05/18/23 18:46 Social History Smoking Status: Never smoker EXAM Physical Exam Const Vital Signs: 05/18/23 18:44 Temperature 98 F Temperature Source Temporal Pulse Rate 79 Respiratory Rate 16 Blood Pressure 127/81 H Blood Pressure Mean 96 Pulse Ox 97 Oxygen Delivery Method Room Air [facility] MDM Narrative Medical decision making narrative: HISTORY OF PRESENT ILLNESS: 42-year-old male here with left foot pain. Patient that she was walking her dog last night when her foot fell into a hole and heard a pop and crunch. States the pain in her left foot is constant, severe worse with movement and palpation. REVIEW OF SYSTEMS: Pertinent positives: Left foot pain Pertinent negatives: Numbness, tingling PHYSICAL EXAM: Nursing triage notes reviewed, Vital signs reviewed Constitutional: please see mdm : No CVAT Extremities: No edema, TTP over left fifth metatarsal. Neuro: Intact sensation L1-S1 dermatomal distributions. Intact 5/5 strength in hip flexion (T12-L3). Knee extension (L2-L4). Ankle dorsiflexion (L4-L5). Ankle plantar flexion (S1). Great toe extension (L5). 2+ patellar and Achilles DTRs. Skin: No rash or lesions noted MEDICAL DECISION MAKING: Chief Complaint: Left foot pain External records reviewed: Prior imaging studies reviewed. X-ray of the left foot from 2021 shows soft tissue swelling, no acute fracture dislocation Factors affecting care: none Consults: none ALL IMAGES (IF OBTAINED) HAVE BEEN PERSONALLY REVIEWED AND INTERPRETED BY MYSELF. [facility] Narrative: Patient was hemodynamically stable, afebrile, nontoxic-appearing I considered the following differential diagnosis: Left foot contusion, fracture, dislocation, sprain X-ray was obtained to rule out fracture dislocation. X-ray was unremarkable. I personally read reviewed the x-ray which showed no obvious fracture dislocation. Initially ordered 2 view foot x-ray. Initial 2 view did have some nondescript bony abnormality noted over the cuneiform. Obtained an oblique view which showed no obvious fracture. Radiologist reviewed my interpretation. Patient is appropriate discharge home with a postop shoe, Tylenol and ibuprofen instructions. Gave strict return precautions. The patient and/or family, caregivers express understanding. The patient and/or family, caregivers agrees with the plan. Shared decision making: I will have a discussion with the patient and or visitors regarding risk/benefits of further testing or admission. They will be made aware of of the risk/benefits inherent in this decision they will be given the opportunity to voice understanding. Total critical care time today provided was at least 0 minutes. This excludes separately billable procedures. Critical care time (if documented) is secondary to the patient having high probability of clinically significant/life threatening deterioration in the patient's condition which required my urgent intervention. Radiography Chest X-Ray - ED: Read by ED Physician Diagnostic Testing: Clinical Impression(s) from Imaging Studies Foot X-Ray 05/18/23 19:05 IMPRESSION: Negative left foot x-rays. Electronically Signed: Eugenio Babb MD at 19:29 EDT , Discharge Plan Triage Chief Complaint: Lower Extremity Injury ED Provider: Suleman Artis Dx/Rx/DC Orders Clinical Impression: Contusion of foot Instructions: Bone Contusion Prescriptions: No Action fluvoxamine 50 MG tablet 150 mg PO QHS dexamethasone 6 MG tablet 6 mg PO DAILY 5 Days 0RF tramadol 50 mg tablet 50 mg PO Q8H PRN (Reason: pain) Qty: 9 0RF ibuprofen 600 mg tablet 600 mg PO Q6H PRN PRN (Reason: fever or pain) Qty: 20 0RF oxycodone-acetaminophen [Percocet] 5-325 mg tablet 1 tab PO Q6H PRN (Reason: pain) 3 Days Qty: 12 0RF Primary Care Provider: Care Physician,No Primary Referrals: Dayo Aldrich MD [Med Staff - Environmental Director] - Activity Restrictions/Additional Instructions: Thank you for trusting us with your care today! Please take Tylenol (2 pills, 650 mg), ibuprofen (2 pills, 400 mg) every 6 hours as needed for pain and fever control. Please return to the emergency department if your symptoms change or worsen. Please follow with your primary care physician for further outpatient evaluation and management. Disposition Disposition: Home, Self Care
[2023-05-18 18:54] VITALS: BMI 33.5
--- NOTE | 2023-05-18 19:05 | RAD_ITS ---
EXAM: XR LEFT FOOT, 2 VIEWS CLINICAL INDICATION: left lateral foot pain TECHNIQUE: Frontal and lateral views of the left foot. COMPARISON: No relevant prior studies available. FINDINGS: BONES/JOINTS: Unremarkable. No acute fracture. No subluxation. Normal alignment. Preservation of the joint space. No sclerotic or destructive changes observed. SOFT TISSUES: Unremarkable. No soft tissue swelling or gas. No radiopaque foreign body. RAD/Foot 2 Views IMPRESSION: Negative left foot x-rays. Electronically Signed: Eugenio Babb MD at 19:29 EDT ,
[2023-05-18] MEDS: Ibuprofen 200 MG Tablet 400 MG PO (19:06)
[2023-05-18] MEDS: Acetaminophen 325 MG Tablet 650 MG PO (19:06)
== END 2023-05-18 20:10 | disposition home or self-care (01) ==
PROVIDERS: Emergency Provider Emergency Medicine; Visit Provider Emergency Medicine
DX: S90.30XA Contusion of unspecified foot, initial encounter (principal); W17.2XXA Fall into hole, initial encounter
CPT/HCPCS: 73620; 99283

== ENCOUNTER 2023-06-25 22:14 | Emergency (ER) | payer MEDICAID, SELFPAY ==
[2023-06-25 22:15] VITALS: BP 141/84; PULSE 85; RESP 16; TEMP 36.6; O2SAT 98; BMI 33.7
--- NOTE | 2023-06-25 23:01 | CT_ITS ---
INDICATION: perineal abscess EXAMINATION: CT ABDOMEN AND PELVIS WITH CONTRAST - CT Pelvis W/ Contrast Injection TECHNIQUE: Helically acquired images were obtained of the pelvis following IV contrast. A radiation dose optimization technique was used for this scan. IV Contrast dosage and agent: 100mL [id number] Oral contrast: None. Radiation Dose (If provided by facility): 28.21 1095.61 COMPARISON: CT Abdomen/PelvisFeb [address] Abdomen/PelvisDec 2015 FINDINGS: There is a nonspecific low density structure anterior to the coccyx measures approximately 2.8 x 2 x 3 cm is stable when compared to a study from 09/16/2016. VESSELS: Aorta is non-dilated. URINARY BLADDER: Unremarkable. REPRODUCTIVE ORGANS: No pelvic masses. ABDOMINAL WALL: No discrete abdominal or pelvic wall hernia. BONES: No lytic or blastic abnormality. CT/Pelvis WITH IV Contrast IMPRESSION: There is no evidence of perineal abscess. Electronically Signed: Radha Deng MD at 23:53 EDT ,
--- NOTE | 2023-06-25 23:04 | EX.ED.GUMALE ---
HPI History of Present Illness Chief Complaint: Male Pain/Injury Detail of Chief Complaint: Peritoneal pain for last several days. Informant: patient Pain Onset: Days Context: Gradual Onset Timing: Continuous Current Severity: Moderate Maximum Severity: Moderate Narrative Narrative: 42-year-old biological male transitioning to a female but has not had any surgery as of yet. Complaining of several day history of beginning around Friday perineal pain. No dysuria. Painful bowel movement. No bleeding. No fever. No prior history. Prior similar symptoms: No Recent Illness/Hospitalization: No [facility] Medical History (Updated 06/26/23 @ 00:[address] Dayne Cosme MD) Depression Home Medications fluvoxamine 50 mg tablet 150 mg PO QHS 09/16/16 [History Last Taken Unknown] dexamethasone 6 mg tablet 6 mg PO DAILY 5 days 11/01/20 [Rx Last Taken Unknown] ibuprofen 600 mg tablet 600 mg PO Q6H PRN PRN fever or pain #20 tabs 02/11/22 [Rx Last Taken Unknown] tramadol 50 mg tablet 50 mg PO Q8H PRN pain #9 tabs 02/11/22 [Rx Last Taken Unknown] oxycodone-acetaminophen 5 mg-325 mg tablet (Percocet) 1 tab PO Q6H PRN pain 3 days #12 tabs 02/25/23 [Rx Last Taken Unknown] Allergy/AdvReac Type Severity Reaction Status Date / Time hydrocodone AdvReac Other Verified 06/25/23 22:17 oxycodone [Oxycodone] AdvReac Other Verified 06/25/23 22:17 Social History Smoking Status: Never smoker ROS ROS ED ROS Narrative Perineal pain. Review of Systems ROS Unobtainable: Denies due to encephalopathy Constitutional Constitutional ED: Denies chills or fever(s) Eyes Eyes: Denies blurry vision ENT ENT ED: Denies ear pain Cardiovascular Cardiovascular: Denies chest pain Respiratory/Chest Respiratory/Chest: Denies cough or dyspnea Gastrointestinal Gastrointestinal: Denies abdominal pain Genitourinary Genitourinary ED: Denies dysuria Musculoskeletal Musculoskeletal: Denies arthralgias Integumentary Denies abscess Neurologic Neurologic: Denies headache(s) Psychiatric Psychiatric: Denies anxiety Endocrine Endocrinology: Denies polydipsia Hematologic/Lymphatic Hematologic/Lymphatic: Denies easy bleeding or easy bruising Allergic/Immunologic Allergic/Immunologic ED: Denies mouth swelling or tongue swelling EXAM Physical Exam Narrative Exam Narrative: 42-year-old biological male transitioning to female. Vital signs stable and afebrile. H EENT exam unremarkable. Neck nontender. Lungs clear to auscultation bilaterally. Heart regular rhythm no murmur. Chest wall nontender. Abdomen soft nontender. Moving all 4 extremities. Neurovascular intact. Perineal area is warm to touch and tender primarily around the anus. There is no obvious abscess. There is no pus. The male external genitalia is nontender without swelling or redness. Clinically I suspect perianal or perirectal abscess. Const Vital Signs: 06/25/23 22:15 Temperature 98 F Temperature Source Temporal Pulse Rate 85 Respiratory Rate 16 Blood Pressure 141/84 H Blood Pressure Mean 103 Pulse Ox 98 Oxygen Delivery Method Room Air Positive well nourished and well developed; Negative for cachectic, contractures or unkempt General Appearance ED: well developed and NAD; Negative for unkempt, cachectic, contractures or pallor Nutritional Appearance: Negative for cachectic HEENT Reports moist mucous membranes; Denies dry mucous membranes normocephalic and atraumatic; Negative for trauma or tenderness Mouth ED: No dry mucous membranes Mouth: No dry mucous membranes Eyes PERRL and EOMs intact bilaterally General Eye ED: Negative for pale conjunctiva or scleral icterus Neck no lymphadenopathy, supple and no JVD General: Negative for tenderness Resp normal respiratory effort and clear to auscultation bilaterally Effort and Inspection: Negative for retractions Auscultation: Negative for rales, rhonchi or wheezes Cardio regular rate, regular rhythm, S1 normal heart sound, S2 normal heart sound and no murmurs Rate: Negative for bradycardia or tachycardic Rhythm: Negative for abnormal rhythm Heart Sounds: Negative for other GI non-tender, non-distended and no masses Auscultation: normoactive bowel sounds Palpation: soft; Negative for tender or guarding Back/Spine no CVA tenderness General Back: Negative for CVA tenderness Cervical Spine: Negative for cervical spine tenderness Thoracic Spine / Upper Back: Negative for thoracic spinal tenderness Lumbar Spine / Lower Back: Negative for lumbar spinal tenderness Extremity normal to inspection General Extremety ED: Negative for edema or pulses abnormal General Extremity: Negative for edema or pulses abnormal Neuro oriented x3, CN's II-XII intact bilaterally, moves all extremities and no focal motor deficits Sensorium / Orientation: alert, oriented to person, oriented to place and oriented to time; Negative for orientation impaired, confused, lethargic or stuporous Motor Exam: strength 5/5 throughout Psych mental status grossly normal Appearance: Negative for unkempt Attitude: No agitated Mood & Affect: Negative for depressed Skin Skin Narrative: Tender perineum. No obvious abscess. General Skin Exam: Negative for jaundice or pallor Lesions: no lesions Rashes: no rashes MDM MDM MDM Narrative Medical decision making narrative: 42-year-old biological male transitioning to female. Complaining of perineal pain. Concern for perianal and perirectal abscess. Not seen on exam. Tender to the area. Screening labs and a CT of the pelvis with IV contrast is being obtained. Repeat exam unchanged. I do not see any cellulitis in the perineal area. I do not see an abscess. I discussed with the patient normal white count and unremarkable labs. Also the negative CAT scan results. Patient will follow-up with his primary care physician if not improving. Motrin and Tylenol for pain. Warm sits baths. Lab Data Attestation: I reviewed the patient's lab results. Lab results narrative: CBC unremarkable. White count of 7. H&H 12.4 and 37. Platelets 172. Electrolytes normal gap of 3 normal BUN and creatinine of 15 and 0.8. Glucose 108. CAT scan of the pelvis with IV contrast was read by the radiologist showed no acute abnormality. No perirectal or perianal abscess. I reviewed the film also. Labs: Laboratory Results - last 24 hr 06/25/23 23:20 WBC 7.7 RBC 4.05 L Hgb 12.4 L Hct 37.1 L MCV 91.6 MCH 30.6 MCHC 33.4 RDW Std Deviation 39.1 RDW Coeff of Wan 11.8 Plt Count 172 MPV 9.7 Immature Gran % (Auto) 0.400 Neut % (Auto) 62.7 Lymph % (Auto) 28.2 [place] % (Auto) 7.3 Eos % (Auto) 1.0 Baso % (Auto) 0.4 Absolute Neuts (auto) 4.8 Absolute Lymphs (auto) 2.16 Nucleated RBC % 0 Sodium 139 Potassium 3.7 Chloride 106 Carbon Dioxide 30.0 Anion Gap 3 L BUN 15 Creatinine 0.86 Estim Creat Clear Calc 100.98 Est GFR (MDRD) Af Amer 125 Est GFR (MDRD) Non-Af 103 BUN/Creatinine Ratio 17.4 Glucose 108 H Calcium 9.0 Radiography Diagnostic Testing: Clinical Impression(s) from Imaging Studies Pelvis CT 06/25/23 23:01 IMPRESSION: There is no evidence of perineal abscess. Electronically Signed: Radha Deng MD at 23:53 EDT , Discharge Plan Triage Chief Complaint: Male Pain/Injury ED Provider: Dayne Cosme Dx/Rx/DC Orders Clinical Impression: Male perineal pain Prescriptions: No Action fluvoxamine 50 MG tablet 150 mg PO QHS dexamethasone 6 MG tablet 6 mg PO DAILY 5 Days 0RF tramadol 50 mg tablet 50 mg PO Q8H PRN (Reason: pain) Qty: 9 0RF ibuprofen 600 mg tablet 600 mg PO Q6H PRN PRN (Reason: fever or pain) Qty: 20 0RF oxycodone-acetaminophen [Percocet] 5-325 mg tablet 1 tab PO Q6H PRN (Reason: pain) 3 Days Qty: 12 0RF Primary Care Provider: ERON MCGRAW Referrals: Care Physician,No Primary [Non-Staff] - Activity Restrictions/Additional Instructions: Warm soaks. Motrin and Tylenol for pain. Your lab work was unremarkable. Your CAT scan did not show any abnormality. There was no abscess. Currently there is no other signs of infection. This should progressively improve if not follow-up with your primary care physician Disposition Disposition: Home, Self Care
[2023-06-25 23:27] LABS: Absolute Lymphocyte Count 2.16 X10^3/uL (0.83-4.51); Absolute Neutrophil Count 4.8 X10^3/uL (2.0-7.7); Basophil# 0.03 X10^3/uL; Basophil% 0.4 % (0-1); Eosinophil# 0.08 X10^3/uL; Hematocrit 37.1 % (40-54); Hemoglobin 12.4 g/dL (13.0-16.5); Lymphocyte # 2.16 X10^3/ul (0.83-4.51); Lymphocyte % 28.2 % (19-41); Mean Corp Hgb Conc 33.4 g/dL (32-36); Mean Corpuscular Hgb 30.6 pg (27.0-32.0); Mean Corpuscular Volume 91.6 fL (80-94); Mean Platelet Vol. 9.7 fl (6.2-12.0); Monocyte# 0.56 X10^3/uL; Monocyte% 7.3 % (0-10); NRBC Flagged by Analyzer 0 % (0-5); Neutrophil # 4.81 X10^3/uL (2.7-7.7); Neutrophil % 62.7 % (47-70); Platelet Count 172 K/mm3 (150-450); RBC Distribution Width CV 11.8 % (11.6-14.6); RBC Distribution Width SD 39.1 fl (35.1-43.9); Red Blood Count 4.05 M/mm3 (4.6-6.2); White Blood Count 7.7 K/mm3 (4.4-11.0)
[2023-06-25 23:51] LABS: Anion Gap 3 (5-15); BUN 15 mg/dL (7-18); BUN/Creat Ratio 17.4 RATIO (10-20); Chloride 106 mmol/L (98-107); Creatinine, Serum 0.86 mg/dL (0.70-1.30); EST Glomerular Filtration Rate 103 mL/min (>60); Est Glom Filt Rate - Afr Amer 125 mL/min (>60); Estimated Creatinine Clearance 100.98 ml/min; Glucose 108 mg/dL (74-106); Potassium 3.7 mmol/L (3.5-5.1); Sodium Level 139 mmol/L (136-145)
== END 2023-06-26 01:04 | disposition home or self-care (01) ==
PROVIDERS: Emergency Provider Emergency Medicine; Visit Provider Emergency Medicine
DX: R10.2 Pelvic and perineal pain (principal)
CPT/HCPCS: 72193; 80048; 85025; 99283; Q9967; A4216

== ENCOUNTER 2024-02-05 19:45 | Emergency (ER) | payer BC, SELFPAY ==
[2024-02-05 19:48] VITALS: BP 113/80; PULSE 77; RESP 16; TEMP 36.1; O2SAT 98; BMI 28.0
--- NOTE | 2024-02-05 20:23 | EKG12_ITS ---
Test Reason : CHEST OTHER Blood Pressure : / mmHG Vent. Rate : 070 BPM Atrial Rate : 070 BPM P-R Int : 164 ms QRS Dur : 084 ms QT Int : 396 ms P-R-T Axes : 057 046 051 degrees QTc Int : 427 ms Normal sinus rhythm Low voltage QRS Borderline ECG Confirmed by KATHLEEN MILTON, TIN ([id number]), purchase request editor MARIA DEL CARMEN FOOTE ([id number]) on 02/09/2024 10:35:24 AM Referred By: JENY Confirmed By:JAIR WANG MD
--- NOTE | 2024-02-05 20:23 | CT_ITS ---
STUDY: CT BRAIN WITHOUT CONTRAST REASON FOR EXAM: Male, 43 years old. Paresthesias RADIATION DOSAGE (If Supplied By Facility): CTDIvol = ( 44.99 ) mGy, DLP = ( 812.98 ) mGycm TECHNIQUE: Transaxial CT imaging of the brain was performed without administration of intravenous contrast material. Individualized dose optimization techniques were used for this CT. COMPARISON: No relevant priors. FINDINGS: Normal soft tissue structures. Normal calvarium. Normal size ventricles and extra-axial spaces for the patient''s age. Normal white matter tracts of the cerebral hemispheres. Normal basal ganglia and thalami. Normal brainstem. Normal cerebellum. There is no intracranial hemorrhage. There are no findings of an acute ischemic infarction. Normal visualized paranasal sinuses. CT/Brain/Head without Contrast IMPRESSION: Normal unenhanced CT scan of the brain. Electronically Signed: Jadiel Zaragoza DO at 20:53 EDT ,
--- NOTE | 2024-02-05 20:25 | EX.ED.DYSGE1 ---
HPI History of Present Illness Chief Complaint: Chest Other Informant: patient Narrative Narrative: Patient presents with multiple complaints. Patient states that upon waking around 7 AM this morning she had numbness and tingling to both hands and feet has had some intermittent chest tightness throughout the day. She reports hazy like sensation to her vision. While driving home she suddenly became lightheaded and thought she was in a pass out, but symptoms resolved after 30 seconds. She took some Ativan when she got home and she does have a history of anxiety, but states this did not help. She has some intermittent paresthesias to her tongue and to her face. Patient is a genetic male transitioning to female. Patient was diagnosed with a UTI just a couple days ago and was placed on an antibiotic which she believes she has had before. [facility] Medical History (Updated 02/05/24 @ 22:[address] Sweta Oneill MD) Anxiety Depression Hypothyroidism Home Medications fluvoxamine 50 mg tablet 150 mg PO QHS 09/16/16 [History Last Taken Unknown] dexamethasone 6 mg tablet 6 mg PO DAILY 5 days 11/01/20 [Rx Last Taken Unknown] ibuprofen 600 mg tablet 600 mg PO Q6H PRN PRN fever or pain #20 tabs 02/11/22 [Rx Last Taken Unknown] tramadol 50 mg tablet 50 mg PO Q8H PRN pain #9 tabs 02/11/22 [Rx Last Taken Unknown] oxycodone-acetaminophen 5 mg-325 mg tablet (Percocet) 1 tab PO Q6H PRN pain 3 days #12 tabs 02/25/23 [Rx Last Taken Unknown] Allergy/AdvReac Type Severity Reaction Status Date / Time No Known Allergies Allergy Verified 02/05/24 19:48 Social History household members: family housing: house Smoking Status: Former smoker ROS ROS ED Constitutional Constitutional ED: Denies chills or fever(s) Eyes Eyes: Reports change in vision bilateral; Denies discharge from eye(s) ENT ENT ED: Denies discharge from eye(s), rhinorrhea or sore throat Cardiovascular Cardiovascular: Reports chest pain; Denies palpitations Respiratory/Chest Respiratory/Chest: Reports dyspnea; Denies cough Gastrointestinal Gastrointestinal: Reports nausea; Denies abdominal pain, diarrhea or vomiting Genitourinary Genitourinary ED: Denies difficulty urinating or dysuria Musculoskeletal Musculoskeletal: Denies back pain or extremity pain Integumentary Denies Abrasions or rash Neurologic Neurologic: Reports paresthesias; Denies headache(s) or weakness Psychiatric Psychiatric: Reports anxiety; Denies depression Allergic/Immunologic Allergic/Immunologic ED: Denies lip swelling or urticaria EXAM Physical Exam Const Vital Signs: 02/05/24 19:48 02/05/24 20:40 Temperature 96.9 F L Temperature Source Temporal Pulse Rate 77 Respiratory Rate 16 Respiratory Effort Normal Non-Labored Blood Pressure 113/80 Blood Pressure Mean 91 Pulse Ox 98 Oxygen Delivery Method Room Air Positive well nourished and well developed General Appearance ED: well developed HEENT Reports moist mucous membranes Eyes EOMs intact bilaterally Chest Wall inspection of chest normal and palpation of chest normal Resp normal respiratory effort and clear to auscultation bilaterally Cardio regular rate and regular rhythm GI non-tender Palpation: soft Extremity normal to inspection Neuro oriented x3 and no sensory deficits noted Motor Exam: strength 5/5 throughout Psych mental status grossly normal Skin no rashes or lesions noted MDM MDM MDM Narrative Medical decision making narrative: Patient placed on environmental monitoring technician. EKG obtained to evaluate for cardiac arrhythmia/ischemia. IV line established. Labwork obtained to evaluate for leukocytosis, anemia, and electrolyte derangement. Urinalysis obtained to evaluate for infection/hematuria. Given the chest pain experienced will undergo two-view chest x-ray to evaluate for any acute abnormalities. CT scan of the head will be obtained to evaluate for edema, bleed, evidence of ischemic stroke. History & Record Review Discussion w/independent historian: Patient Additional record(s) reviewed:: Prior labs Lab Data Attestation: I reviewed the patient's lab results. Labs: Laboratory Results - last 24 hr 02/05/24 02/05/24 20:30 21:11 WBC 10.4 RBC 4.11 L Hgb 12.7 L Hct 36.7 L MCV 89.3 MCH 30.9 MCHC 34.6 RDW Std Deviation 40.4 RDW Coeff of Wan 12.5 Plt Count 192 MPV 10.0 Immature Gran % (Auto) 0.300 Neut % (Auto) 59.1 Lymph % (Auto) 33.2 [place] % (Auto) 6.1 Eos % (Auto) 0.9 Baso % (Auto) 0.4 Absolute Neuts (auto) 6.1 Absolute Lymphs (auto) 3.44 Nucleated RBC % 0 D-Dimer Quant (PE/DVT) < 0.27 L Sodium 139 Potassium 3.6 Chloride 105 Carbon Dioxide 27.0 Anion Gap 7 BUN 14 Creatinine 0.86 Estim Creat Clear Calc 109.37 Est GFR (MDRD) Af Amer 124 Est GFR (MDRD) Non-Af 102 BUN/Creatinine Ratio 16.2 Glucose 101 Calcium 9.0 Troponin I High Sens < 3 L TSH 3.38 Urine Color Yellow Urine Clarity Clear Urine pH 8.0 Ur Specific [place] 1.010 Urine Protein Negative Urine Glucose (UA) Normal Urine Ketones Negative Urine Occult Blood Negative Urine Nitrite Negative Urine Bilirubin Negative Urine Urobilinogen Normal Ur Leukocyte Esterase Negative Radiography Chest X-Ray - ED: 2 View, Read by ED Physician, Normal, Heart, Lungs and Mediastinum Diagnostic Testing: Clinical Impression(s) from Imaging Studies Brain CT 02/05/24 20:23 IMPRESSION: Normal unenhanced CT scan of the brain. Electronically Signed: Jadiel Zaragoza DO at 20:53 EDT , Chest X-Ray 02/05/24 20:40 IMPRESSION: No radiographic evidence of acute cardiopulmonary disease. Electronically Signed: Jadiel Zaragoza DO at 20:53 EDT , EKG Initial EKG: Attestation: I personally reviewed and interpreted this EKG as follows: Interpretation: Sinus Rhythm (Sinus rhythm at 70 bpm. No acute ischemia.) Treatment and Re-Evaluation :: CBC was normal white count at 10.4 with a hemoglobin of 12.7. Platelet count is normal. Chemistry studies are unremarkable. Troponin is less than 3 and D-dimer is less than 0.27. TSH is normal at 3.38. Urinalysis reveals no evidence of acute infection. Two-view chest x-ray per my interpretation reveals no focal infiltrate or acute abnormality. Radiology interpretation reviewed and agrees. EKG is sinus rhythm with no ischemia. CT scan of the head reveals no acute findings. On repeat evaluation patient is sleeping comfortably. She is easily awoken. Test results are discussed with her. She will continue to monitor her symptoms and is reassured with her normal workup at this time. Return instructions provided. Discharge Plan Triage Chief Complaint: Chest Other Other Complaint: Numb/Ting ED Provider: Sweta Oneill Dx/Rx/DC Orders Clinical Impression: Paresthesias, Chest pain Instructions: ED Chest Pain, Noncardiac, ED Paraesthesias Prescriptions: No Action fluvoxamine 50 MG tablet 150 mg PO QHS dexamethasone 6 MG tablet 6 mg PO DAILY 5 Days 0RF tramadol 50 mg tablet 50 mg PO Q8H PRN (Reason: pain) Qty: 9 0RF ibuprofen 600 mg tablet 600 mg PO Q6H PRN PRN (Reason: fever or pain) Qty: 20 0RF oxycodone-acetaminophen [Percocet] 5-325 mg tablet 1 tab PO Q6H PRN (Reason: pain) 3 Days Qty: 12 0RF Primary Care Provider: Care Physician,No Primary Referrals: Sari Gray MD [Med Staff - Train Station Server] - As Needed NOT,DEFINED [Non-Staff] - Disposition Disposition: Home, Self Care
--- NOTE | 2024-02-05 20:40 | RAD_ITS ---
INDICATION: pain EXAMINATION/TECHNIQUE: X-RAY - XR Chest 2 Views COMPARISON: FINDINGS: LINES/DEVICES: None. LUNGS: No consolidation, edema or effusion. No pneumothorax. MEDIASTINUM AND CARDIOVASCULAR STRUCTURES: Cardiac silhouette not enlarged. Central airways and mediastinal contour are unremarkable. BONES AND SOFT TISSUES: Unremarkable. RAD/Chest PA and Lateral IMPRESSION: No radiographic evidence of acute cardiopulmonary disease. Electronically Signed: Jadiel Zaragoza DO at 20:53 EDT ,
[2024-02-05 20:41] LABS: Absolute Lymphocyte Count 3.44 X10^3/uL (0.83-4.51); Absolute Neutrophil Count 6.1 X10^3/uL (2.0-7.7); Basophil# 0.04 X10^3/uL; Basophil% 0.4 % (0-1); Eosinophil# 0.09 X10^3/uL; Eosinophils% 0.9 % (0-5); Hematocrit 36.7 % (40-54); Hemoglobin 12.7 g/dL (13.0-16.5); Lymphocyte # 3.44 X10^3/ul (0.83-4.51); Lymphocyte % 33.2 % (19-41); Mean Corp Hgb Conc 34.6 g/dL (32-36); Mean Corpuscular Hgb 30.9 pg (27.0-32.0); Mean Corpuscular Volume 89.3 fL (80-94); Monocyte# 0.63 X10^3/uL; Monocyte% 6.1 % (0-10); NRBC Flagged by Analyzer 0 % (0-5); Neutrophil # 6.14 X10^3/uL (2.7-7.7); Neutrophil % 59.1 % (47-70); Platelet Count 192 K/mm3 (150-450); RBC Distribution Width CV 12.5 % (11.6-14.6); RBC Distribution Width SD 40.4 fl (35.1-43.9); Red Blood Count 4.11 M/mm3 (4.6-6.2); White Blood Count 10.4 K/mm3 (4.4-11.0)
[2024-02-05 21:05] LABS: Anion Gap 7 (5-15); BUN 14 mg/dL (7-18); BUN/Creat Ratio 16.2 RATIO (10-20); Chloride 105 mmol/L (98-107); Creatinine, Serum 0.86 mg/dL (0.70-1.30); EST Glomerular Filtration Rate 102 mL/min (>60); Est Glom Filt Rate - Afr Amer 124 mL/min (>60); Estimated Creatinine Clearance 109.37 ml/min; Glucose 101 mg/dL (74-106); Potassium 3.6 mmol/L (3.5-5.1); Sodium Level 139 mmol/L (136-145); Thyroid Stim Hormone (TSH) 3.38 uIU/mL (0.358-3.74); Troponin-I HS < 3 pg/mL (3.0-78.0)
[2024-02-05] MEDS: 0.9% Normal Saline (1000mL) 1,000 ML 150 ML IV (21:15)
[2024-02-05 21:27] LABS: D-Dimer Quantitative (DVT/PE) < 0.27 FEU/ug/m (0.27-0.49)
[2024-02-05 21:28] LABS: Bacteria 0 SEEN /hpf (None Seen); Mucous, Urine 0 SEEN /hpf (<or=2+); Red Blood Cells-Urine 0 SEEN /hpf (0-5); White Blood Cells 0 SEEN /hpf (0-5)
[2024-02-05 21:32] LABS: Color, Urine Yellow (Yellow); Glucose, Dipstick Normal (Normal); Ketone-Dipstick Negative (Negative); Leukocyte Esterase-Dipstick Negative /ul (Negative); Nitrite-Dipstick Negative (Negative); Occult Blood-Urine Negative /ul (Negative); Protein-Dipstick Negative (Negative); Urine Bilirubin Dipstick Negative (Negative); Urine Clarity Clear (Clear); Urine Urobilinogen Normal (Normal)
[2024-02-05 21:45] VITALS: BP 105/74; PULSE 61; RESP 14; O2SAT 100
[2024-02-05 22:04] LABS: Squamous Epithelial Cells - UA 0-5 SEEN /hpf (0-5)
[2024-02-05 22:10] VITALS: BP 104/68; PULSE 63; RESP 14; TEMP 36.1; O2SAT 98
== END 2024-02-05 22:31 | disposition home or self-care (01) ==
PROVIDERS: Emergency Provider Emergency Medicine; Visit Provider Emergency Medicine
DX: R07.9 Chest pain, unspecified (principal); Z87.891 Personal history of nicotine dependence; R20.2 Paresthesia of skin; F41.9 Anxiety disorder, unspecified; Z79.899 Other long term (current) drug therapy
CPT/HCPCS: 70450; 71046; 80048; 81001; 84443; 84484; 85025; 85379; 93005; 96360; 96361; 99285; J7030; A4216

== ENCOUNTER 2024-05-18 17:53 | Emergency (ER) | payer BC, SELFPAY ==
[2024-05-18 17:54] VITALS: BP 125/82; PULSE 75; RESP 18; TEMP 36.3; O2SAT 100; BMI 24.6
--- NOTE | 2024-05-18 18:07 | EX.ED.DYSGE1 ---
HPI History of Present Illness Chief Complaint: General Illness Detail of Chief Complaint: Patient presents with congestion, mild sore throat chest discomfort with pl Informant: patient Onset/Context/Timing Onset: Days (Symptoms started this past May 14) Context: Sudden Onset Timing: Intermittent Quality: Upper respiratory symptoms Location: Upper respiratory Current Severity: Mild Maximum Severity: Moderate Worsened by: Breathing Relieved by: Nothing Associated Symptoms Associated Symptoms: Patient has no history of PE or DVT. Patient [place] leg pain, swelling disco Narrative Narrative: Patient is a 43-year-old genotypic male who identifies as a woman. He presents with respiratory symptoms congestion, sore throat. He denies cough. Complains of chest discomfort. There is a pleuritic component. He denies leg pain, swelling discoloration. She denies documented fever. He denies chills. She denies myalgias or arthralgias. She denies rash. Patient has no complaint of headache, photophobia or sonophobia. There is no complaint of neck pain or stiffness. There is a history of GERD. Patient is on antidepressant as well as hormones including levothyroxine. Prior similar symptoms: No Recent Illness/Hospitalization: No [facility] Medical History Hypothyroidism Anxiety Depression Home Medications ?Medication ?Instructions ?Recorded ?Last Taken ?Type fluvoxamine 50 mg tablet 150 mg PO QHS 09/16/16 Unknown History dexamethasone 6 mg tablet 6 mg PO DAILY 5 days 11/01/20 Unknown Rx ibuprofen 600 mg tablet 600 mg PO Q6H PRN PRN fever or 02/11/22 Unknown Rx pain #20 tabs tramadol 50 mg tablet 50 mg PO Q8H PRN pain #9 tabs 02/11/22 Unknown Rx buspirone 10 mg tablet 10 mg PO TID 02/05/24 Unknown History dulaglutide 3 mg/0.5 mL 3 mg subcut QWEEK 02/05/24 Unknown History subcutaneous pen injector (Trulicity) estradiol 2 mg tablet 2 mg PO TID 02/05/24 Unknown History estradiol valerate 20 mg/mL 5 mg IM QWEEK 02/05/24 Unknown History intramuscular oil finasteride 1 mg tablet 1 mg PO DAILY 02/05/24 Unknown History fluvoxamine 100 mg tablet 100 mg PO 02/05/24 Unknown History levothyroxine 25 mcg tablet 25 mcg PO DAILY 02/05/24 Unknown History lorazepam 0.5 mg tablet 0.5 mg PO DAILY PRN anxiety 02/05/24 Unknown History nitrofurantoin 1 cap PO BID 02/05/24 Unknown History monohydrate/macrocrystals 100 mg capsule progesterone micronized 100 mg 100 mg PO BID 02/05/24 Unknown History capsule spironolactone 50 mg tablet 50 mg PO Q12.TCU 02/05/24 Unknown History trazodone 50 mg tablet 50 mg PO QHS PRN PRN insomnia 02/05/24 Unknown History naproxen 500 mg tablet 500 mg PO BID #14 tabs 05/18/24 Unknown Rx Allergy/AdvReac Type Severity Reaction Status Date / Time green tea Allergy Chest Verified 05/18/24 17:54 tightness Social History household members: family housing: house Smoking Status: Former smoker ROS ROS ED Constitutional Constitutional ED: Denies chills, fever(s), subjective, sweats or weight loss Eyes Eyes: Denies blurry vision, change in vision or diplopia ENT ENT ED: Reports sore throat and other Details: HPI narrative ; Denies ear pain or rhinorrhea Cardiovascular Cardiovascular: Reports chest pain; Denies orthopnea, palpitations, paroxysmal nocturnal dyspnea or racing heartbeat Respiratory/Chest Respiratory/Chest: Denies cough, dyspnea, dyspnea on exertion, orthopnea or paroxysmal nocturnal dyspnea Gastrointestinal Gastrointestinal: Denies abdominal pain, constipation, diarrhea, melena, nausea or vomiting Musculoskeletal Musculoskeletal: Denies arthralgias, back pain or myalgias Integumentary Denies rash Endocrine Endocrinology: Denies cold intolerance or heat intolerance Hematologic/Lymphatic Hematologic/Lymphatic: Reports systems reviewed and no addt'l complaints, except as documented EXAM Physical Exam Const Vital Signs: 05/18/24 17:54 05/18/24 18:08 Temperature 97.4 F L Temperature Source Temporal Pulse Rate 75 Respiratory Rate 18 Respiratory Effort Normal Respiratory Pattern Normal Blood Pressure 125/82 H Blood Pressure Mean 96 Pulse Ox 100 Oxygen Delivery Method Room Air Positive well nourished and well developed Constitutional Narrative: Vital signs noted. Blood pressure slightly elevated. General Appearance ED: well developed and NAD; Negative for pallor HEENT Reports moist mucous membranes HEENT Narrative: Patient reports tenderness over the right maxillary sinus. Nares patent. No discharge. Posterior pharynx is normal. Eyes PERRL and EOMs intact bilaterally Neck no lymphadenopathy, supple and no JVD Resp normal respiratory effort and clear to auscultation bilaterally Cardio regular rate, regular rhythm, S1 normal heart sound, S2 normal heart sound and no murmurs Extremity Extremity Narrative: There is no asymmetry, swelling, discoloration, leg vein distention, palpable cords or tenderness along the distribution of the deep venous system. Neuro oriented x3 and CN's II-XII intact bilaterally Sensorium / Orientation: alert Psych mental status grossly normal Skin no rashes or lesions noted, no wounds and skin turgor normal General Skin Exam: Negative for jaundice or pallor MDM MDM MDM Narrative Medical decision making narrative: Patient symptoms consistent with upper respiratory infection. Since patient had pneumonia in the past obtain chest x-ray to evaluate for pneumonia. Clinically there is no concern for PE. History is not consistent with PE even though she is on hormonal therapy. History & Record Review Additional record(s) reviewed:: Prior ED visit and Prior labs Radiography Chest X-Ray - ED: 2 View and Read by ED Physician (Cardiac silhouette size normal. Lung parenchyma normal. Hilum is normal. Osseous structures unremarkable. Independently reviewed interpreted by me) Treatment and Re-Evaluation :: Patient was informed his x-ray does not show evidence of pneumonia. This is a upper respiratory infection and his pain is due to pleurisy. He was placed on NSAID. Discharge Plan Triage Chief Complaint: General Illness ED Provider: Urban Moralez Dx/Rx/DC Orders Clinical Impression: Acute pleurisy without pleural effusion, Upper respiratory infection, Elevated blood-pressure reading without diagnosis of hypertension Instructions: ED Pleurisy Prescriptions: New naproxen 500 mg tablet 500 mg PO BID Qty: 14 0RF No Action fluvoxamine 50 MG tablet 150 mg PO QHS dexamethasone 6 MG tablet 6 mg PO DAILY 5 Days 0RF tramadol 50 mg tablet 50 mg PO Q8H PRN (Reason: pain) Qty: 9 0RF ibuprofen 600 mg tablet 600 mg PO Q6H PRN PRN (Reason: fever or pain) Qty: 20 0RF trazodone 50 mg tablet 50 mg PO QHS PRN PRN (Reason: insomnia) levothyroxine 25 mcg tablet 25 mcg PO DAILY lorazepam 0.5 mg tablet 0.5 mg PO DAILY PRN (Reason: anxiety) estradiol valerate 20 mg/mL oil 5 mg IM QWEEK fluvoxamine 100 mg tablet 100 mg PO buspirone 10 mg tablet 10 mg PO TID estradiol 2 mg tablet 2 mg PO TID spironolactone 50 mg tablet 50 mg PO Q12.TCU finasteride 1 mg tablet 1 mg PO DAILY progesterone micronized 100 mg capsule 100 mg PO BID nitrofurantoin monohyd/m-cryst 100 mg capsule 1 cap PO BID Trulicity 3 mg/0.5 mL pen injector 3 mg subcut QWEEK Primary Care Provider: Care Physician,No Primary Referrals: Care Physician,No Primary [Primary Care Provider] - Doctor,Your [Non-Staff] - 10-14 Days if not better Print Language: Swedish Disposition Disposition: Home, Self Care
--- NOTE | 2024-05-18 18:20 | RAD_ITS ---
STUDY: X-RAY CHEST REASON FOR EXAM: Male, 43 years old. Pleuritic chest pain, upper respiratory symptoms TECHNIQUE: Frontal and lateral views of the chest. COMPARISON: February 05, 2024 FINDINGS: The lungs are clear and expanded. There is no demonstrated pleural abnormality. Normal size heart. Normal mediastinum and edouard. Normal visualized pulmonary arteries. Normal visualized aortic arch and descending thoracic aorta. Normal visualized thoracic spine. Normal visualized ribs, clavicles, and shoulders. There is no demonstrated abnormality of the visualized soft tissue structures of the upper abdomen. RAD/Chest PA and Lateral IMPRESSION: Normal x-ray examination of the chest. Electronically Signed: Rafael Kelley MD at 18:36 EDT ,
[2024-05-18] MEDS: Naproxen 500 MG Tablet PO (18:42)
[2024-05-18 18:45] VITALS: BP 123/72; PULSE 70; RESP 18; TEMP 36.6; O2SAT 100
== END 2024-05-18 18:46 | disposition home or self-care (01) ==
LOC: ED 18:35
PROVIDERS: Emergency Provider Emergency Medicine; Visit Provider Emergency Medicine
DX: R09.1 Pleurisy (principal); J06.9 Acute upper respiratory infection, unspecified; R03.0 Elevated blood-pressure reading, without diagnosis of hypertension; E03.9 Hypothyroidism, unspecified; Z79.890 Hormone replacement therapy; Z87.891 Personal history of nicotine dependence
CPT/HCPCS: 71046; 99282

== ENCOUNTER 2024-07-24 01:16 | Emergency (ER) | payer BC, SELFPAY ==
[2024-07-24 01:20] VITALS: BP 121/84; PULSE 75; RESP 16; TEMP 36.3; O2SAT 98; BMI 25.7
--- NOTE | 2024-07-24 01:31 | EDS_ITS ---
HPI History of Present Illness Chief Complaint: Chest Pain Narrative Narrative: 43-year-old presents with chest pain over the last few days. She has multiple complaints regarding this. She states over the last few days she felt like she was becoming ill. She developed chest pain that she describes as sharp, stabbing, dull, and also pressure. She has had low-grade fever over the last few days and urinary frequency but thought this was secondary to spironolactone. Additionally, she takes estradiol 3 times a day as she is transitioning. She feels nauseated. However, no vomiting. That started today. No recent illnesses/upper respiratory infections, no recent immunizations. [facility] Medical History Hypothyroidism Anxiety Depression Home Medications ?Medication ?Instructions ?Recorded ?Last Taken ?Type buspirone 10 mg tablet 10 mg PO TID 02/05/24 Unknown History estradiol 2 mg tablet 2 mg PO TID 02/05/24 Unknown History finasteride 1 mg tablet 1 mg PO DAILY 02/05/24 Unknown History fluvoxamine 100 mg tablet 100 mg PO QHS 02/05/24 Unknown History levothyroxine 25 mcg tablet 25 mcg PO DAILY 02/05/24 Unknown History lorazepam 0.5 mg tablet 0.5 mg PO DAILY PRN anxiety 02/05/24 Unknown History progesterone micronized 100 mg 100 mg PO BID 02/05/24 Unknown History capsule spironolactone 50 mg tablet 50 mg PO Q12H 02/05/24 Unknown History trazodone 50 mg tablet 50 mg PO QHS PRN PRN insomnia 02/05/24 Unknown History lorazepam 0.5 mg tablet 0.5 mg PO DAILY PRN anxiety #3 tabs 07/24/24 Unknown Rx phentermine 37.5 mg tablet 37.5 mg PO DAILY 07/24/24 Unknown History tretinoin 0.025 % topical cream 1 applic topical QHS 07/24/24 Unknown History Allergy/AdvReac Type Severity Reaction Status Date / Time green tea Allergy Chest Verified 07/24/24 01:17 tightness Social History household members: family housing: house Smoking Status: Former smoker ROS ROS ED ROS Narrative Constitutional: Low-grade fever, no chills. HEENT: No sore throat. No neck pain. No loss of vision. No rhinorrhea. Cardiovascular: Positive chest pressure/chest pain. No palpitations. Bilateral pedal edema. Respiratory: No cough, no shortness of breath. Abdominal: No abdominal pain. Positive nausea. No vomiting. Genitourinary: No dysuria. No hematuria. Musculoskeletal: No myalgias. No arthralgias. Neurologic: Positive headaches. No dizziness. No lightheadedness. Skin: No rash. No change in color. Psychiatric: No depression. Positive anxiety. EXAM Physical Exam Narrative Exam Narrative: Afebrile. Vital signs noted. HEENT examination shows PERRL, EOMI. Cardiovascular examination regular rate and rhythm. Lungs are clear to auscultation bilaterally. Abdomen is soft nontender with normoactive bowel sounds. Neurological examination is nonfocal and nonlateralizing, moves all extremities. No pitting edema appreciated of the bilateral lower extremities. No overt swelling. Psychiatric: Positive anxiety, almost tearful. States he is concerned about having a heart attack or stroke. Const Vital Signs: 07/24/24 01:20 07/24/24 01:36 07/24/24 02:17 Temperature 97.4 F L Temperature Source Temporal Pulse Rate 75 73 Respiratory Rate 16 20 H Blood Pressure 121/84 H 109/71 Blood Pressure Mean 96 83 Pulse Ox 98 97 Oxygen Delivery Method Room Air Room Air 07/24/24 03:00 07/24/24 04:00 Temperature Temperature Source Pulse Rate 71 73 Respiratory Rate 16 16 Blood Pressure 110/69 110/70 Blood Pressure Mean 82 83 Pulse Ox 97 97 Oxygen Delivery Method Room Air Room Air MDM MDM MDM Narrative Medical decision making narrative: Differential diagnosis includes but not limited to coronary syndrome versus pneumothorax versus pneumonia versus pulmonary embolism versus anxiety/panic attack. Comprehensive workup was pursued. EKG was obtained and interpreted by myself independently as normal sinus rhythm at 74 bpm without ectopy or acute ST changes. No STEMI. She not tachycardic or hypoxic. History and physical does not support pneumothorax. I will obtain a D-dimer to help rule out pulmonary embolism as the patient is on estradiol. She also takes progesterone, levothyroxine, and lorazepam. I reviewed her laboratory work and she has normal white count 9.4, hemoglobin normal at 13.0, platelet count normal at 182. D-dimer is negative at 0.27, I do not feel that she requires CT imaging of the chest. Electrolyte panel is grossly unremarkable with a normal sodium of 138 potassium 3.6, BUN is slightly elevated at 21 which is nonspecific with normal creatinine of 0.82. Magnesium normal at 1.9, high-sensitivity troponin is 3 initially. Chest x-ray 1 view interpreted by myself independently shows no acute process, no pneumonia, no pneumothorax. I do feel that some of this may be related to anxiety. Patient states that she does not have her lorazepam 0.5 mg which she takes daily at home because it has not been called in for her. She will be given 1 mg of Ativan here in the emergency department intravenously. Upon repeat examination at approximately 4:20 AM, she is feeling improved, and drowsy. I reviewed her second troponin and it is less than 3 for a negative delta troponin. At this point in time, she will be discharged to follow-up with her psychiatrist. I did write her for three 0.5 mg tablets to take daily as needed for anxiety and in review of her [facility] report, this is how it had been prescribed to her in the past. Additionally, her symptoms began approximately 3 days ago when she ran out. I feel she can be discharged safely home to follow- up. Return instructions reviewed. Patient and agreeable to the plan. Disposition is discharged home in stable condition. History & Record Review Discussion w/independent historian: Patient Additional record(s) reviewed:: Prior ED visit (Previous workup with same chief complaint/multiple complaints in January of this year with negative workup.) and Prior labs Lab Data Attestation: I reviewed the patient's lab results. Labs: Laboratory Results - last 24 hr 07/24/24 07/24/24 01:27 03:42 WBC 9.4 RBC 4.06 L Hgb 13.0 Hct 37.5 L MCV 92.4 MCH 32.0 MCHC 34.7 RDW Std Deviation 39.8 RDW Coeff of Wan 11.8 Plt Count 182 MPV 10.0 Immature Gran % (Auto) 0.200 Neut % (Auto) 59.0 Lymph % (Auto) 34.4 [place] % (Auto) 5.2 Eos % (Auto) 0.9 Baso % (Auto) 0.3 Absolute Neuts (auto) 5.6 Absolute Lymphs (auto) 3.24 Nucleated RBC % 0 D-Dimer Quant (PE/DVT) 0.27 Sodium 138 Potassium 3.6 Chloride 104 Carbon Dioxide 29.0 Anion Gap 6 BUN 21 H Creatinine 0.82 Estim Creat Clear Calc 104.82 Est GFR (MDRD) Af Amer 131 Est GFR (MDRD) Non-Af 108 BUN/Creatinine Ratio 25.5 H Glucose 92 Calcium 9.0 Magnesium 1.9 Troponin I High Sens 3 < 3 L Lipase 54 Radiography Diagnostic Testing: Clinical Impression(s) from Imaging Studies Chest X-Ray 07/24/24 01:38 IMPRESSION: No significant interval change. No radiographic evidence of acute cardiopulmonary disease. Electronically Signed: Baldev Leung MD at 2:11 EDT , Discharge Plan Triage Chief Complaint: Chest Pain ED Provider: Alfa Puckett Dx/Rx/DC Orders Clinical Impression: Anxiety, Chest pain, Drug treatment stopped due to patient running out of medication Instructions: ED Anxiety Reaction, ED Chest Pain, Noncardiac Prescriptions: New lorazepam 0.5 mg tablet 0.5 mg PO DAILY PRN (Reason: anxiety) Qty: 3 0RF No Action tretinoin 0.025 % cream 1 applic topical QHS phentermine 37.5 mg tablet 37.5 mg PO DAILY trazodone 50 mg tablet 50 mg PO QHS PRN PRN (Reason: insomnia) levothyroxine 25 mcg tablet 25 mcg PO DAILY lorazepam 0.5 mg tablet 0.5 mg PO DAILY PRN (Reason: anxiety) fluvoxamine 100 mg tablet 100 mg PO QHS buspirone 10 mg tablet 10 mg PO TID estradiol 2 mg tablet 2 mg PO TID spironolactone 50 mg tablet 50 mg PO Q12H finasteride 1 mg tablet 1 mg PO DAILY progesterone micronized 100 mg capsule 100 mg PO BID Primary Care Provider: ERON MCGRAW Referrals: NOT,DEFINED [Non-Staff] - Activity Restrictions/Additional Instructions: Follow-up with your psychiatrist, call on Friday for refills of your lorazepam. Return to the emergency department with increased chest pain, shortness of breath, new or worsening symptoms. Print Language: [place] Disposition Disposition: Home, Self Care
--- NOTE | 2024-07-24 01:38 | RAD_ITS ---
EXAM: XR CHEST, 1 VIEW CLINICAL INDICATION: chest pain TECHNIQUE: Frontal view of the chest. COMPARISON: Previous chest radiographs of 05/18/2024 and 02/05/2024. FINDINGS: LUNGS AND PLEURAL SPACES: Unremarkable. No consolidation or edema. No pneumothorax. No effusion. HEART: Unremarkable. Cardiac silhouette not enlarged. Normal pulmonary vasculature. MEDIASTINUM: Central airways and mediastinal contour are unremarkable. No mediastinal widening. Trachea is midline. BONES/JOINTS: Unremarkable. No acute fracture. SOFT TISSUES: Unremarkable. RAD/Chest 1 View (Portable) IMPRESSION: No significant interval change. No radiographic evidence of acute cardiopulmonary disease. Electronically Signed: Baldev Leung MD at 2:11 EDT ,
[2024-07-24 01:42] LABS: Absolute Lymphocyte Count 3.24 X10^3/uL (0.83-4.51); Absolute Neutrophil Count 5.6 X10^3/uL (2.0-7.7); Basophil# 0.03 X10^3/uL; Basophil% 0.3 % (0-1); Eosinophil# 0.08 X10^3/uL; Eosinophils% 0.9 % (0-5); Hematocrit 37.5 % (40-54); Lymphocyte # 3.24 X10^3/ul (0.83-4.51); Lymphocyte % 34.4 % (19-41); Mean Corp Hgb Conc 34.7 g/dL (32-36); Mean Corpuscular Volume 92.4 fL (80-94); Monocyte# 0.49 X10^3/uL; Monocyte% 5.2 % (0-10); NRBC Flagged by Analyzer 0 % (0-5); Neutrophil # 5.55 X10^3/uL (2.7-7.7); Platelet Count 182 K/mm3 (150-450); RBC Distribution Width CV 11.8 % (11.6-14.6); RBC Distribution Width SD 39.8 fl (35.1-43.9); Red Blood Count 4.06 M/mm3 (4.6-6.2); White Blood Count 9.4 K/mm3 (4.4-11.0)
[2024-07-24 01:56] LABS: D-Dimer Quantitative (DVT/PE) 0.27 FEU/ug/m (0.27-0.49)
[2024-07-24 01:59] LABS: Anion Gap 6 (5-15); BUN 21 mg/dL (7-18); BUN/Creat Ratio 25.5 RATIO (10-20); Chloride 104 mmol/L (98-107); Creatinine, Serum 0.82 mg/dL (0.70-1.30); EST Glomerular Filtration Rate 108 mL/min (>60); Est Glom Filt Rate - Afr Amer 131 mL/min (>60); Estimated Creatinine Clearance 104.82 ml/min; Glucose 92 mg/dL (74-106); Lipase 54 U/L (13-75); Magnesium 1.9 mg/dL (1.6-2.6); Potassium 3.6 mmol/L (3.5-5.1); Sodium Level 138 mmol/L (136-145); Troponin-I HS (w/2H Reflex) 3 pg/mL (3.0-78.0)
[2024-07-24] MEDS: LORazepam 2 MG/ML Syringe 1 MG IV (02:10)
[2024-07-24 02:17] VITALS: BP 109/71; PULSE 73; RESP 20; O2SAT 97
[2024-07-24 03:00] VITALS: BP 110/69; PULSE 71; RESP 16; O2SAT 97
[2024-07-24 03:37] LABS: Reflex Troponin-HS? (from REC) Y
[2024-07-24 04:00] VITALS: BP 110/70; PULSE 73; RESP 16; O2SAT 97
[2024-07-24 04:14] LABS: Troponin-I HS < 3 pg/mL (3.0-78.0)
[2024-07-24 04:29] VITALS: BP 110/70; PULSE 73; RESP 16; TEMP 37.1; O2SAT 97
== END 2024-07-24 04:30 | disposition home or self-care (01) ==
PROVIDERS: Emergency Provider Emergency Medicine; Visit Provider Emergency Medicine
DX: R07.9 Chest pain, unspecified (principal); R35.0 Frequency of micturition; Z87.891 Personal history of nicotine dependence; F41.9 Anxiety disorder, unspecified; F32.A Depression, unspecified; E03.9 Hypothyroidism, unspecified
CPT/HCPCS: 71045; 80048; 83690; 83735; 84484; 85025; 85379; 93005; 96374; 99284; A4216

== ENCOUNTER 2024-10-05 10:17 | Emergency (ER) | payer MEDICAID, SELFPAY ==
[2024-10-05 10:18] VITALS: BP 114/91; PULSE 75; RESP 30; TEMP 36.6; O2SAT 100; BMI 22.4
--- NOTE | 2024-10-05 10:41 | EDS_ITS ---
HPI HPI - Psych History of Present Illness Chief Complaint: Anxiety Informant: patient and friend Narrative Narrative: 44-year-old female, biologically male, presenting for anxiety/panic attack. States this has been going on intermittently over the past 2 or 3 days, no obvious trigger, no suicidal thoughts, but ran out of her lorazepam several days ago and because of the holidays unable to get a refill from her doctor. Normally she would take lorazepam either once a day or once every other day on average. Denies any recent illness or injury. [facility] Medical History Hypothyroidism Anxiety Depression Home Medications ?Medication ?Instructions ?Recorded ?Last Taken ?Type buspirone 10 mg tablet 10 mg PO TID 02/05/24 Unknown History estradiol 2 mg tablet 2 mg PO TID 02/05/24 Unknown History finasteride 1 mg tablet 1 mg PO DAILY 02/05/24 Unknown History fluvoxamine 100 mg tablet 100 mg PO QHS 02/05/24 Unknown History levothyroxine 25 mcg tablet 25 mcg PO DAILY 02/05/24 Unknown History lorazepam 0.5 mg tablet 0.5 mg PO DAILY PRN anxiety 02/05/24 Unknown History progesterone micronized 100 mg 100 mg PO BID 02/05/24 Unknown History capsule spironolactone 50 mg tablet 50 mg PO Q12H 02/05/24 Unknown History trazodone 50 mg tablet 50 mg PO QHS PRN PRN insomnia 02/05/24 Unknown History phentermine 37.5 mg tablet 37.5 mg PO DAILY 07/24/24 Unknown History tretinoin 0.025 % topical cream 1 applic topical QHS 07/24/24 Unknown History lorazepam 0.5 mg tablet 0.5 mg PO DAILY PRN anxiety #5 tabs 10/05/24 Unknown Rx Allergy/AdvReac Type Severity Reaction Status Date / Time green tea Allergy Chest Verified 10/05/24 10:18 tightness Social History household members: family housing: house Smoking Status: Former smoker ROS ROS ED Constitutional Constitutional ED: Denies chills or fever(s) Eyes Eyes: Denies blurry vision, change in vision or diplopia ENT ENT ED: Denies rhinorrhea or sore throat Cardiovascular Cardiovascular: Denies chest pain or palpitations Respiratory/Chest Respiratory/Chest: Denies cough or dyspnea Gastrointestinal Gastrointestinal: Denies abdominal pain, diarrhea, nausea or vomiting Genitourinary Genitourinary ED: Denies dysuria or hematuria Musculoskeletal Musculoskeletal: Denies back pain or neck pain Integumentary Denies abscess or rash Neurologic Neurologic: Reports headache(s); Denies paresthesias or weakness Psychiatric Psychiatric: Reports anxiety; Denies suicidal thoughts EXAM Physical Exam Const Vital Signs: 10/05/24 10:18 Temperature 97.9 F Temperature Source Oral Pulse Rate 75 Respiratory Rate 30 H Blood Pressure 114/91 H Blood Pressure Mean 98 Pulse Ox 100 Oxygen Delivery Method Room Air Positive well nourished and well developed General Appearance ED: well developed and NAD HEENT Reports moist mucous membranes normocephalic and atraumatic Eyes PERRL and EOMs intact bilaterally Neck full ROM and supple Resp normal respiratory effort and clear to auscultation bilaterally Resp Narrative: Hyperventilating. Clear. Cardio regular rate, regular rhythm and no murmurs GI non-tender and non-distended Auscultation: normoactive bowel sounds Palpation: soft Back/Spine no CVA tenderness General Back: other FROM Extremity normal to inspection General Extremety ED: Negative for edema, pulses abnormal or tenderness General Extremity: Negative for edema or pulses abnormal Neuro oriented x3, CN's II-XII intact bilaterally and no sensory deficits noted Sensorium / Orientation: awake and alert Motor Exam: strength 5/5 throughout Psych denies hallucinations, denies homicidal ideation and denies suicidal ideation Psych Narrative: Anxious, tearful/crying Skin no rashes or lesions noted and no wounds MDM MDM MDM Narrative Medical decision making narrative: I offered testing, I offered also lorazepam and a short prescription. She declines testing I think she just needs Ativan. Given a dose here along with some naproxen for her headache. Offered to discussion with a counselor if she was having suicidal thoughts, she states no she does not have suicidal thoughts and does not feel like she needs to talk to a counselor today. Discharge Plan Triage Chief Complaint: Anxiety ED Provider: Ken Garibay Dx/Rx/DC Orders Clinical Impression: Anxiety, Headache Instructions: Anxiety Disorders Meds Prescriptions: Continued tretinoin 0.025 % cream 1 applic topical QHS phentermine 37.5 mg tablet 37.5 mg PO DAILY trazodone 50 mg tablet 50 mg PO QHS PRN PRN (Reason: insomnia) levothyroxine 25 mcg tablet 25 mcg PO DAILY lorazepam 0.5 mg tablet 0.5 mg PO DAILY PRN (Reason: anxiety) fluvoxamine 100 mg tablet 100 mg PO QHS buspirone 10 mg tablet 10 mg PO TID estradiol 2 mg tablet 2 mg PO TID spironolactone 50 mg tablet 50 mg PO Q12H finasteride 1 mg tablet 1 mg PO DAILY progesterone micronized 100 mg capsule 100 mg PO BID lorazepam 0.5 mg tablet 0.5 mg PO DAILY PRN (Reason: anxiety) Qty: 5 0RF Primary Care Provider: ERON MCGRAW Referrals: ERON MCGRAW [Other] - 3-5 Days Print Language: Persian Disposition Disposition: Home, Self Care
[2024-10-05] MEDS: Naproxen 500 MG Tablet PO (10:51)
[2024-10-05] MEDS: LORazepam 1 MG Tablet PO (10:51)
== END 2024-10-05 11:10 | disposition home or self-care (01) ==
LOC: ED 10:52
PROVIDERS: Emergency Provider Emergency Medicine; Visit Provider Emergency Medicine
DX: F41.9 Anxiety disorder, unspecified (principal); Z87.891 Personal history of nicotine dependence; R51.9 Headache, unspecified; E03.9 Hypothyroidism, unspecified; F32.A Depression, unspecified
CPT/HCPCS: 99283

== ENCOUNTER 2025-04-25 19:13 | Emergency (ER) | payer MEDICAID, SELFPAY ==
[2025-04-25 19:14] VITALS: BP 114/85; PULSE 73; RESP 18; TEMP 36.8; O2SAT 98; BMI 23.6
--- NOTE | 2025-04-25 22:44 | CT_ITS ---
PROCEDURE: BRAIN/HEAD WITHOUT CONTRAST 04/25/2025 REASON FOR EXAM: HEADACHE TECHNIQUE: BRAIN/HEAD WITHOUT CONTRAST Coronal and Sagittal reconstruction series were provided. One or more dose reduction techniques were used (e.g., Automated exposure control, adjustment of the mA and/or kV according to patient size, use of iterative reconstruction technique. RADIATION DOSE SUMMARY: CTDlvol: 44.99 mGy DLP: 812.98 mGycm COMPARISON: 02/05/2024. FINDINGS: The ventricles are normal in size and midline in position. No evidence of acute hemorrhage or infarction. No extra-axial blood or fluid collections. The paranasal sinuses and mastoid air cells are clear. The calvarial vault and skull base are intact. CT/Brain/Head without Contrast IMPRESSION: No acute intracranial abnormalities. Reading Location: [place] [id number]
--- NOTE | 2025-04-25 22:44 | CT_ITS ---
PROCEDURE: BRAIN/HEAD WITHOUT CONTRAST 04/25/2025 REASON FOR EXAM: HEADACHE TECHNIQUE: BRAIN/HEAD WITHOUT CONTRAST Coronal and Sagittal reconstruction series were provided. One or more dose reduction techniques were used (e.g., Automated exposure control, adjustment of the mA and/or kV according to patient size, use of iterative reconstruction technique. RADIATION DOSE SUMMARY: CTDlvol: 44.99 mGy DLP: 812.98 mGycm COMPARISON: 02/05/2024. FINDINGS: The ventricles are normal in size and midline in position. No evidence of acute hemorrhage or infarction. No extra-axial blood or fluid collections. The paranasal sinuses and mastoid air cells are clear. The calvarial vault and skull base are intact. CT/Brain/Head without Contrast IMPRESSION: No acute intracranial abnormalities. Reading Location: [place] [id number]
[2025-04-25] MEDS: Ketorolac 30 MG/ML Syringe IV (23:15)
[2025-04-25] MEDS: 0.9% Normal Saline (1000mL) 1,000 ML 999 ML IV (23:15)
[2025-04-25] MEDS: DiphenhydrAMINE 50 MG/ML Syringe IV (23:15)
[2025-04-25 23:22] VITALS: BP 112/89; PULSE 86; RESP 19; O2SAT 100
--- NOTE | 2025-04-25 23:24 | ED.RN ---
valium, toradol, reglan, benadryl and IV fluids have been given at 2315.
--- NOTE | 2025-04-25 23:24 | ED.RN ---
valium, toradol, reglan, benadryl and IV fluids have been given at 2315.
[2025-04-25 23:25] LABS: Hematocrit 38.1 % (40-54); Hemoglobin 13.5 g/dL (13.0-16.5); Immature Granulocytes Count 0.040 X10^3/uL (0.0-0.0); Mean Corp Hgb Conc 35.4 g/dL (32-36); Mean Corpuscular Volume 90.7 fL (80-94); Mean Platelet Vol. 9.6 fl (6.2-12.0); NRBC Flagged by Analyzer 0 % (0-5); Platelet Count 148 K/mm3 (150-450); RBC Distribution Width CV 11.8 % (11.6-14.6); RBC Distribution Width SD 38.6 fl (35.1-43.9); Red Blood Count 4.20 M/mm3 (4.6-6.2); White Blood Count 10.5 K/mm3 (4.4-11.0)
[2025-04-26 00:05] LABS: Anion Gap 12 (5-15); BUN 16 mg/dL (4-19); BUN/Creat Ratio 22.8 RATIO (10-20); Calcium,Total 9.0 mg/dL (7.6-11.0); Carbon Dioxide 20.7 mmol/L (21.0-32.0); Chloride 102 mmol/L (98-108); Estimated Creatinine Clearance 125.10 ml/min (50-250); Glucose 85 mg/dL (70-99); Magnesium 2.0 mg/dL (1.5-2.2); Potassium 4.1 mmol/L (3.3-5.1)
--- NOTE | 2025-04-26 00:19 | EDS_ITS ---
HPI History of Present Illness Chief Complaint: General Illness Informant: patient and friend Narrative Narrative: Patient is a 44-year-old male who identifies as female with history of hypothyroidism anxiety and depression. Patient states that she is felt upper back pain and describes this as a lightening/burning sensation. She states that there has been no recent trauma. She denies any excessive activity. She denies any excessive bouts of nausea vomiting or diarrhea. However the symptoms have been recurrent and secondary to this she presents for evaluation [facility] Medical History Hypothyroidism Anxiety Depression Home Medications ?Medication ?Instructions ?Recorded ?Last Taken ?Type buspirone 10 mg tablet 10 mg PO TID 02/05/24 Unknow n History estradiol 2 mg tablet 2 mg PO TID 02/05/24 Unknown History finasteride 1 mg tablet 1 mg PO DAILY 02/05/24 Unkno wn History fluvoxamine 100 mg tablet 100 mg PO QHS 02/05/24 Unkno wn History levothyroxine 25 mcg tablet 25 mcg PO DAILY 02/05/24 U nknown History lorazepam 0.5 mg tablet 0.5 mg PO DAILY PRN anxiety 02/05/24 Unknown History spironolactone 50 mg tablet 50 mg PO Q12H 02/05/24 Unk nown History trazodone 50 mg tablet 50 mg PO QHS PRN PRN insomni a 02/05/24 Unknown History phentermine 37.5 mg tablet 37.5 mg PO DAILY 07/24/24 U nknown History lorazepam 0.5 mg tablet 0.5 mg PO DAILY PRN anxiety #5 tabs 10/05/24 Unknown Rx methocarbamol 500 mg tablet 1,000 mg (2 x 500 mg) PO 4 X/DAY 04/26/25 Unknown Rx PRN Muscle pain/spasm #56 tabs Allergy/AdvReac Type Severity Reaction Status Date / Time green tea Allergy Chest Verified 04/25/25 19:16 tightness Social History household members: family housing: house Smoking Status: Former smoker ROS ROS ED Constitutional Constitutional ED: Denies chills or fever(s) ENT ENT ED: Denies sore throat Cardiovascular Cardiovascular: Denies chest pain Respiratory/Chest Respiratory/Chest: Denies cough or dyspnea Gastrointestinal Gastrointestinal: Denies abdominal pain, diarrhea, nausea or vomiting Genitourinary Genitourinary ED: Denies dysuria Musculoskeletal Musculoskeletal: Reports back pain and neck pain Integumentary Denies rash Neurologic Neurologic: Reports headache(s), paresthesias and weakness Hematologic/Lymphatic Hematologic/Lymphatic: Denies easy bleeding or easy bruising EXAM Physical Exam Const Vital Signs: 04/25/25 19:14 04/25/25 23:22 Temperature 98.3 F Temperature Source Oral Pulse Rate 73 86 Respiratory Rate 18 19 H Blood Pressure 114/85 H 112/89 H Blood Pressure Mean 94 96 Pulse Ox 98 100 Oxygen Delivery Method Room Air Room Air Positive well nourished and well developed General Appearance ED: well developed; Negative for pallor HEENT HEENT Narrative: Normocephalic atraumatic Eyes PERRL and EOMs intact bilaterally General Eye ED: Negative for scleral icterus Neck Neck Narrative: No bony deformity or step-off of the cervical spine no midline tenderness to palpation There is bilateral paracervical tension and spasm noted that worsens with sidebending and rotation Negative Spurling sign bilaterally No overlying soft tissue changes to suggest trauma or infection Resp normal respiratory effort and clear to auscultation bilaterally Cardio regular rate and regular rhythm Rate: other Other Details: Heart is regular rate and rhythm without murmurs rubs or gallop Radial and carotid pulses are equal and symmetric GI normal to inspection, nondistended, normoactive bowel sounds, non-tender, non- distended and no masses Auscultation: normoactive bowel sounds Palpation: soft Back/Spine Back/Spine Narrative: No bony deformity or step-off of the thoracic or lumbar spine no midline tenderness to palpation Extremity normal to inspection Extremity Narrative: No asymmetric edema no pitting edema negative Homans' sign bilaterally Neuro oriented x3, CN's II-XII intact bilaterally and no sensory deficits noted Sensorium / Orientation: alert Motor Exam: strength 5/5 throughout Psych Mood & Affect: anxious Skin no rashes or lesions noted and no wounds General Skin Exam: Negative for jaundice or pallor MDM MDM MDM Narrative Medical decision making narrative: Patient arrived to the ER with stable vitals. Patient had multiple complaints such as neck burning/pain with paresthesias. History and exam is most consistent with muscular tension and spasm. In order to ensure there is no signs of acute kidney injury or electrolyte abnormality basic labs were obtained. Labs revealed no clinically significant findings in order to rule out potential brain mass or spontaneous subarachnoid or subdural hemorrhage as the cause of the paresthesias as well a head CT was ordered. This revealed no acute findings. At this time I feel the patient's symptoms are related to muscular tension with superficial nerve impingement. After receiving medications in the ER the patient's headache resolved neurologic exam remained normal and she reported resolution of her symptoms. Therefore his overall workup is negative I do not feel there is need for further testing and she is safe for discharge with symptomatic care. History & Record Review Discussion w/independent historian: Patient and Friend Lab Data Attestation: I reviewed the patient's lab results. Labs: Laboratory Results - last 24 hr 04/25/25 23:00 WBC 10.5 RBC 4.20 L Hgb 13.5 Hct 38.1 L MCV 90.7 MCH 32.1 H MCHC 35.4 RDW Std Deviation 38.6 RDW Coeff of Wan 11.8 Plt Count 148 L MPV 9.6 Immature Gran % (Auto) 0.400 Neut % (Auto) 68.0 Lymph % (Auto) 26.1 Stone % (Auto) 4.6 Eos % (Auto) 0.5 Baso % (Auto) 0.4 Absolute Neuts (auto) 7.2 Absolute Lymphs (auto) 2.75 Nucleated RBC % 0 Sodium 135 Potassium 4.1 Chloride 102 Carbon Dioxide 20.7 L Anion Gap 12 BUN 16 Creatinine 0.68 L Estim Creat Clear Calc 125.10 Est GFR (MDRD) Non-Af 118 BUN/Creatinine Ratio 22.8 H Glucose 85 Calcium 9.0 Magnesium 2.0 Radiography Diagnostic Testing: Clinical Impression(s) from Imaging Studies Brain CT 04/25/25 22:44 IMPRESSION: No acute intracranial abnormalities. Reading Location: [place] [id number] Discharge Plan Triage Chief Complaint: General Illness ED Provider: Ankit Malloy Dx/Rx/DC Orders Clinical Impression: Cephalgia, Muscle spasm, Hypothyroidism, Anxiety and depression Instructions: Understanding Headache Pain, ED Neck Spasm, No Trauma Prescriptions: New methocarbamol 500 mg tablet 1,000 mg PO 4X/DAY PRN (Reason: Muscle pain/spasm) Qty: 56 0RF No Action phentermine 37.5 mg tablet 37.5 mg PO DAILY trazodone 50 mg tablet 50 mg PO QHS PRN PRN (Reason: insomnia) levothyroxine 25 mcg tablet 25 mcg PO DAILY lorazepam 0.5 mg tablet 0.5 mg PO DAILY PRN (Reason: anxiety) fluvoxamine 100 mg tablet 100 mg PO QHS buspirone 10 mg tablet 10 mg PO TID estradiol 2 mg tablet 2 mg PO TID spironolactone 50 mg tablet 50 mg PO Q12H finasteride 1 mg tablet 1 mg PO DAILY lorazepam 0.5 mg tablet 0.5 mg PO DAILY PRN (Reason: anxiety) Qty: 5 0RF Primary Care Provider: ERON MCGRAW Referrals: ERON MCGRAW [Other] Activity Restrictions/Additional Instructions: Your workup today showed no sign of brain bleed or mass or signs of obvious infection or electrolyte abnormality indicating symptoms are most likely related to muscle tension leading to headache. Continue all of your home medication as directed but add the Robaxin to help with muscle tension and spasm. Continue to stretch and heat the area as well to help reduce pain and speed healing. Return to the ER should you have any further concerns Print Language: [place] Disposition Disposition: Home, Self Care Discharge Date/Time: 04/26/25 00:29
[2025-04-26 00:27] VITALS: BP 132/74; PULSE 79; RESP 18; TEMP 36.7; O2SAT 97
== END 2025-04-26 00:29 | disposition home or self-care (01) ==
PROVIDERS: Emergency Provider Emergency Medicine; Visit Provider Emergency Medicine
DX: R51.9 Headache, unspecified (principal); M62.838 Other muscle spasm; F41.9 Anxiety disorder, unspecified; E03.9 Hypothyroidism, unspecified; F32.A Depression, unspecified; Z87.891 Personal history of nicotine dependence
CPT/HCPCS: 70450; 80048; 83735; 85025; 96361; 96374; 96375; 99282; A4216

== ENCOUNTER 2025-05-29 16:59 | Emergency (ER) | payer MEDICAID, SELFPAY ==
[2025-05-29 17:00] VITALS: BP 131/72; PULSE 71; RESP 14; TEMP 36.6; O2SAT 98
--- NOTE | 2025-05-29 17:21 | RAD_ITS ---
PROCEDURE: RIGHT KNEE 4 OR MORE VIEWS 05/29/2025 REASON FOR EXAM: INJURY/PAIN TECHNIQUE: RIGHT KNEE 4 OR MORE VIEWS COMPARISON: None. FINDINGS: No acute fracture or dislocation. Alignment is anatomic. Preserved joint spaces. No aggressive osseous lesion. No marked soft tissue swelling or radiopaque foreign body. RAD/Knee 4 or More Views IMPRESSION: No acute fracture or dislocation. Reading Location: [id number]
--- NOTE | 2025-05-29 17:21 | RAD_ITS ---
PROCEDURE: RIGHT HIP, UNI W/ PELVIS 2-3 VIEWS 05/29/2025 REASON FOR EXAM: INJURY/PAIN TECHNIQUE: RIGHT HIP, UNI W/ PELVIS 2-3 VIEWS COMPARISON: None. FINDINGS: No acute fracture or dislocation. Alignment is anatomic. Preserved joint spaces. No aggressive osseous lesion. No marked soft tissue swelling or radiopaque foreign body. RAD/HIP, UNI W/ Pelvis 2-3 Views IMPRESSION: No acute fracture or dislocation. Reading Location: [id number]
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
[2025-05-29 17:30] VITALS: BMI 24.0
[2025-05-29 17:32] VITALS: BMI 24.0
--- NOTE | 2025-05-29 17:35 | CT_ITS ---
EXAM: CT BRAIN/HEAD; SINUS/FACIAL BONE; SPINE CERVICAL WITHOUT CONTRAST CLINICAL HISTORY: INJURY/PAIN; TRAUMA COMPARISON: None. TECHNIQUE: Noncontrast CT images of the head, maxillofacial structures, and cervical spine with multiplanar reconstructions. Dose reduction techniques were used including intermediate exposure control (AEC),iterative reconstruction technique, and/or mA and/or KV dose adjustments based on patient's size. FINDINGS: HEAD/FACE: No acute intracranial hemorrhage, extra-axial collection, mass effect or acute infarct. Ventricular and sulcal size and configuration are within normal limits. No acute skull base or calvarial fracture. Chronic fracture deformity to the outer table of the frontal sinus with metallic fixation, stable in alignment. No acute maxillofacial bone fracture. Well- aerated paranasal sinuses and bilateral mastoid air cells. Unremarkable orbits, no evidence for globe injury. CERVICAL SPINE: No acute fracture or subluxation. Alignment is anatomic. No significant degenerative changes are appreciated. No prevertebral soft tissue swelling. Imaged lung apices are clear. CT/Spine Cervical without Contras IMPRESSION: 1. No acute intracranial abnormality. 2. No acute maxillofacial traumatic injuries. 3. No acute cervical spine fracture or malalignment. Reading Location: [id number]
--- NOTE | 2025-05-29 17:35 | CT_ITS ---
EXAM: CT BRAIN/HEAD; SINUS/FACIAL BONE; SPINE CERVICAL WITHOUT CONTRAST CLINICAL HISTORY: INJURY/PAIN; TRAUMA COMPARISON: None. TECHNIQUE: Noncontrast CT images of the head, maxillofacial structures, and cervical spine with multiplanar reconstructions. Dose reduction techniques were used including intermediate exposure control (AEC),iterative reconstruction technique, and/or mA and/or KV dose adjustments based on patient's size. FINDINGS: HEAD/FACE: No acute intracranial hemorrhage, extra-axial collection, mass effect or acute infarct. Ventricular and sulcal size and configuration are within normal limits. No acute skull base or calvarial fracture. Chronic fracture deformity to the outer table of the frontal sinus with metallic fixation, stable in alignment. No acute maxillofacial bone fracture. Well- aerated paranasal sinuses and bilateral mastoid air cells. Unremarkable orbits, no evidence for globe injury. CERVICAL SPINE: No acute fracture or subluxation. Alignment is anatomic. No significant degenerative changes are appreciated. No prevertebral soft tissue swelling. Imaged lung apices are clear. CT/Sinus/Facial Bone IMPRESSION: 1. No acute intracranial abnormality. 2. No acute maxillofacial traumatic injuries. 3. No acute cervical spine fracture or malalignment. Reading Location: [id number]
--- NOTE | 2025-05-29 17:35 | CT_ITS ---
EXAM: CT BRAIN/HEAD; SINUS/FACIAL BONE; SPINE CERVICAL WITHOUT CONTRAST CLINICAL HISTORY: INJURY/PAIN; TRAUMA COMPARISON: None. TECHNIQUE: Noncontrast CT images of the head, maxillofacial structures, and cervical spine with multiplanar reconstructions. Dose reduction techniques were used including intermediate exposure control (AEC),iterative reconstruction technique, and/or mA and/or KV dose adjustments based on patient's size. FINDINGS: HEAD/FACE: No acute intracranial hemorrhage, extra-axial collection, mass effect or acute infarct. Ventricular and sulcal size and configuration are within normal limits. No acute skull base or calvarial fracture. Chronic fracture deformity to the outer table of the frontal sinus with metallic fixation, stable in alignment. No acute maxillofacial bone fracture. Well- aerated paranasal sinuses and bilateral mastoid air cells. Unremarkable orbits, no evidence for globe injury. CERVICAL SPINE: No acute fracture or subluxation. Alignment is anatomic. No significant degenerative changes are appreciated. No prevertebral soft tissue swelling. Imaged lung apices are clear. CT/Brain/Head without Contrast IMPRESSION: 1. No acute intracranial abnormality. 2. No acute maxillofacial traumatic injuries. 3. No acute cervical spine fracture or malalignment. Reading Location: [id number]
--- NOTE | 2025-05-29 17:40 | RAD_ITS ---
PROCEDURE: RIGHT TIBIA FIBULA 2 VIEWS 05/29/2025 REASON FOR EXAM: INJURY/PAIN TECHNIQUE: RIGHT TIBIA FIBULA 2 VIEWS COMPARISON: None. FINDINGS: No acute fracture or dislocation. Alignment is anatomic. Preserved joint spaces. No aggressive osseous lesion. No marked soft tissue swelling or radiopaque foreign body. RAD/Tibia & Fibula 2 Views IMPRESSION: No acute fracture or dislocation. Reading Location: [id number]
--- OUTSIDE RECORDS SUMMARY | 2025-05-29 18:08 | XMS RPT_ITS | CCD ---
Author Organization [facility] Care Team Providers Care 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 Name Role Phone Shakir MILTON, Jared Unavailable Shakir MILTON, Jared Primary Care Provider Rama WELLS, Tatiana Unavailable Unavailable Shakir MILTON, Jared Unavailable Shakir MILTON, Burton Primary Care Provider Tatiana Seo RN Unavailable Unavaila ector Schilling MD, Burton Primary Care Provider Shakir MILTON, Jared Unavailable Shakir MILTON, Burton Primary Care Provider [phone] Gabbi WELLS, Tatiana Del Valle Unavailable Unavaila ector Shukla MD, Dimas Unavailable Ken Clarke MD Unavailable Rianna Murillo DO Unavailable Ethan FRIEDMAN, Rickie Unavailable Vaibhav Barrett MD, Judson Unavailable [phone] Luís MILTON, Mary Unavailable Kimberlee MILTON, Lázaro Unavailable Davy MILTON, Torsten Unavailable Roxanne MILTON, Cindy Unavailable [phone] Nicole MILTON, Meraz Unavailable Wilbert MILTON, Argenis Unavailable Osman MILTON, Kevin Unavailable Carole Camargo MD Unavailable Reginald MILTON, Priscila Unavailable Ramahi DO, Noor Unavailable Rosana MILTON, Cata Unavailable [phone] Pee MILTON, Lissette Unavailable Syd MILTON, Ghanshyam Unavailable Birdenia DO, Andry Unavailable Darleen MILTON, Honorio Jeffries Unavailable [phone] Dontae Shukla MD, Dimas Unavailable Tricia MILTON, Josefinaamakrzysztof-Noor Unavailable Chidi DO, Rianna Unavailable [phone] Vaibhav Barrett MD, Judson Unavailable Luís MILTON, Mary Unavailable Kimberlee MILTON, Lázaro Unavailable Davy MILTON, Basstormy Unavailable Roxanne MILTON, Cindy Unavailable Nicole MILTON, Meraz Unavailable Wilbert MILTON, Zinekeith Unavailable [phone] Osman MILTON, Kevin Unavailable Mary Jo MILTON, Dontae Benoit Unavailable Reginald MILTON, Priscila Unavailable Rami DO, Noor Unavailable Rosana MILTON, Cata Unavailable Pee MILTON, Lissette Unavailable Syd MILTON, Ghanshyam Unavailable Ankita DO, Andry Unavailable Honorio Morejon MD Unavailable JARED SCHILLING Primary Care Provider Dr. Ankit Malloy DO Emergency Provider [phone] Ken Garibay Attending Unavailable BETH MAYER Primary Care Unavailable Urban Moralez Attending Unavailable BETH MAYRE Primary Care Unavailable Alfa Puckett Attending Unavailable LEYLA, BETH Primary Care Unavailable LEYLA, BETH Primary Care Unavailable Ankit Malloy Attending Unavailable CROFTON, RICKIE Referring Unavailable NG, NEWARK Primary Care Unavailable CROFTON, RICKIE Referring Unavailable NG, NEWARK Primary Care Unavailable NG, NEWARK Primary Care Unavailable CROFTON, RICKIE Attending Unavailable RAFAEL MOLINA Attending Unavailable NG, NEWARK Primary Care Unavailable LUZ MARINA MEDEL Attending Unavailable NG, NEWARK Primary Care Unavailable NG, NEWARK Primary Care Unavailable KEMPKEALONSO Attending Unavailable CROFTON, RICKIE Referring Unavailable NG, NEWARK Primary Care Unavailable CROFTON, RICKIE Attending Unavailable NG, NEWARK Primary Care Unavailable NG, NEWARK Primary Care Unavailable KEMPKE, ALONSO Attending Unavailable NG, NEWARK Primary Care Unavailable KEMPKE, ALONSO Attending Unavailable NG, NEWARK Primary Care Unavailable KEMPKE, ALONSO Attending Unavailable NG, NEWARK Primary Care Unavailable CROFTON, RICKIE Referring Unavailable NG, NEWARK Primary Care Unavailable Allergies Allergy Classification Reported Allergen(s) Allergy Type Date of Onset Reaction(s) Facility (20 sources) Dexamethasone Drug Allergy 1 Swelling [facility] Work Phone: (20 sources) HYDROcodone Drug Allergy 6 Mental Status Change, Other: See Comments [facility] Work Phone: (12 sources) oxyCODONE Drug Allergy 2 Other: See Comments [facility] (18 sources) Green Tea Extract; Translations: [GREEN TEA] Drug Allergy 5 Anaphylaxis [facility] (17 sources) Seasonal allergy; Translations: [SEASONAL ALLERGIES] Allergy to substance 5 Unknown [facility] (1 source) Green Tea Extract Drug Allergy 5 [facility] Medications Current Medications Medication Drug Class(es) Dates Sig (Normalized) Sig (Original) amoxicillin 875 mg / clavulanate 125 mg oral tablet (3 sources) Penicillin-class Antibacterial Start: 03-05-2024 End: 03-12-2024 take 1 tablet by mouth twice daily amoxicillin-clavulan ate potassium (AUGMENTIN) 875-125 mg per tablet Indications: Bacterial sinusitis Take 1 tablet by mouth two times a day for 7 days. 14 tablet 0 03/05/2024 03/12/2024 Active cefadroxil 500 mg oral capsule (10 sources) Cephalosporin Antibacterial Start: 05-11-2022 End: 05-21-2022 take 1 capsule by mouth twice daily cefADROxil (DURICEF) 500 mg capsule Take 1 capsule by mouth twice daily for 10 days. 20 capsule 0 05/11/2022 05/21/2022 Active Comment on above: Take 1 capsule by [facility] twice daily for 10 days. cephalexin 500 mg oral capsule (2 sources) Cephalosporin Antibacterial Start: 05-03-2024 End: 05-10-2024 take 1 capsule by mouth twice daily cephALEXin (KEFLEX) 500 mg capsule Indications: Puncture wound of right foot, initial encounter , Urinary frequency Take 1 capsule by mouth two times a day for 7 days. 14 capsule 0 05/03/2024 05/10/2024 Active dulaglutide (TRULICITY) 3 mg/0.5 mL pen injector (20 sources) Start: 03-02-2024 End: 05-27-2024 inject 3 mg by subcutaneous injection every week dulaglutide (TRULICITY) 3 mg/0.5 mL pen injector Inject 3 mg subcutaneously one time a week. 2 mL 2 03/02/2024 05/27/2024 Discontinued Start: 03-02-2024 inject 3 mg by subcu taneous injection every week dulaglutide (TRULICITY) 3 mg/0.5 mL pen injector Inject 3 mg subcutaneously one time a week. 2 mL 2 03/02/2024 Active Start: 12-09-2023 End: 03-01-2024 inject 3 mg by subcutaneous injection every week dulaglutide (TRULICITY) 3 mg/0.5 mL pen injector Inject 3 mg subcutaneously one time a week. 2 mL 2 12/09/2023 03/01/2024 Discontinued Start: 12-09-2023 inject 3 mg by subcu taneous injection every week dulaglutide (TRULICITY) 3 mg/0.5 mL pen injector Inject 3 mg subcutaneously one time a week. 2 mL 2 12/09/2023 Active Comment on above: Inject 3 mg subcutan eously one time a week. estradiol 2 mg oral tablet (20 sources) Estrogen Start: 02-05-2024 End: 07-24-2024 Estradiol Valerate 20 mg/mL oil Discontinued 5 mg IM EVERY WEEK February 05, 2024 12:00am July 24, 2024 1:24am Start: 02-05-2024 inject 5 mg by intra muscular injection every week Estradiol Valerate Active 5 MG IM EVERY WEEK February 05, 2024 12:00am Start: 01-21-2024 End: 04-16-2025 take 1 tablet by mouth three times daily estradiol (ESTRACE) 2 mg tablet Indications: Gender incongruence Take 1 tablet by mouth three times a day. 270 tablet 04/14/2025 Active Start: 12-23-2023 End: 01-21-2024 inject 0.25 mL by intramuscular injection every week estradiol (DELESTROGEN) 20 mg/mL injection Indications: Gender dysphoria Inject 0.25 mL intramuscularly one time a week. 5 mL 2 12/23/2023 01/21/2024 Discontinued Start: 12-21-2021 End: 12-23-2023 take 1 tablet by mouth three times daily estradiol (ESTRACE) 2 mg tablet Indications: Gender dysphoria Take 1 tablet by mouth three times a day. 270 tablet 1 12/03/2023 12/23/2023 Discontinued Start: 12-26-2020 End: 06-19-2021 take 1 tablet by mouth three times daily estradiol (ESTRACE) 2 mg tablet Indications: Gender dysphoria take 1 tablet by mouth three times a day 270 tablet 1 12/26/2020 06/19/2021 Discontinued Comment on above: Take 1 tablet by jose maria th three times daily. take 1 tablet by jose maria th three times a day Take 1 tablet by jose maria th three times a day. Inject 0.25 mL intra muscularly one time a week. famotidine 20 mg oral tablet (20 sources) Histamine-2 Receptor Antagonist Start: 04-22-20 End: 10-21-19 23 take 1 tablet by mouth twice daily famotidine (PEPCID) 20 mg tablet take 1 tablet by mouth twice a day if needed 60 tablet 1 10/21/2022 Active Comment on above: Take 1 tablet by jose maria th twice daily as needed. take 1 tablet by jose maria th twice a day if needed finasteride 1 mg oral tablet (20 sources) 5-alpha Reductase Inhibitor Start: 02-16-20 24 take 1 tablet by mouth once daily finasteride (PROPECIA) 1 mg tablet take 1 tablet by mouth once daily 90 tablet 3 02/16/2024 Active Start: 03-23-2021 End: 02-12-2024 take 1 tablet by mouth once daily finasteride (PROPECIA) 1 mg tablet take 1 tablet by mouth once daily 90 tablet 3 02/16/2024 Active Comment on above: Take 1 tablet by jose maria th once daily. fluvoxaMINE maleate 100 mg oral tablet (20 sources) Serotonin Reuptake Inhibitor Start: 1 End: 4 take 1 tablet by mouth once daily in the morning fluvoxaMINE (LUVOX) 100 mg tablet Indications: Adjustment disorder with mixed anxiety and depressed mood take 1 tablet by mouth every morning 90 tablet 3 12/01/2023 Active Start: 09-16-2016 End: 07-24-2024 take 1 tablet by mouth at bedtime Fluvoxamine 50 MG tablet Discontinued 150 mg PO AT BEDTIME September 16, 2016 1:00am July 24, 2024 1:25am Start: 09-16-2016 take 150 mg by mouth at bedtim e Fluvoxamine Active 150 MG PO AT BEDTIME September 16, 2016 1:00am Comment on above: take 1 capsule by mo uth every morning take 1 tablet by ojse maria th every morning isopropyl alcohol 0.7 ml/ml medicated pad (20 sources) Start: 12-23-19 End: 05-27-20 24 alcohol swabs Indications: Gender dysphoria Apply 1 Each to affected area one time a week. 100 Each 0 12/23/2023 05/27/2024 Discontinued Comment on above: Apply 1 Each to affe cted area one time a week. ketorolac tromethamine 10 mg oral tablet (9 sources) Nonsteroidal Anti-inflammatory Drug, Cyclooxygenase Inhibitor Start: 05-11-20 End: 05-16-20 take 1 tablet by mouth every six hours as needed keTORolac (TORADOL) 10 mg tablet Take 1 tablet by mouth every 6 hours as needed for pain for up to 5 days. 20 tablet 0 05/11/2022 05/16/2022 Active Comment on above: Take 1 tablet by jose maria th every 6 hours as needed for pain for up to 5 days. levothyroxine sodium 0.025 mg oral tablet (20 sources) l-Thyroxine Start: 11-29-19 23 End: 09-10-20 24 take 1 tablet by mouth once daily levothyroxine (SYNTHROID) 25 mcg tablet Indications: Hypothyroidism, acquired take 1 tablet by mouth once daily 180 tablet 3 09/10/2024 Active Start: 05-29-2022 End: 11-27-2022 take 1 tablet by mouth once daily levothyroxine (SYNTHROID) 25 mcg tablet Indications: Hypothyroidism, acquired Take 1 tablet by mouth once daily. 90 tablet 0 08/29/2022 11/27/2022 Active Start: 12-03-2021 End: 05-26-2022 take 1 tablet by mouth once daily levothyroxine (SYNTHROID) 25 mcg tablet Indications: Hypothyroidism, acquired Take 1 tablet by mouth once daily. 90 tablet 0 02/25/2022 Active Start: 05-10-2021 End: 08-31-2021 take 1 tablet by mouth once daily levothyroxine (SYNTHROID) 25 mcg tablet Indications: Hypothyroidism, acquired take 1 tablet by mouth once daily 90 tablet 05/10/2021 08/31/2021 Discontinued Comment on above: Take 1 tablet by jose maria th once daily. take 1 tablet by jose maria th once daily loratadine 10 mg oral tablet (2 sources) Start: 3 End: 3 take 1 tablet by mouth once daily as needed loratadine (CLARITIN) 10 mg tablet Take 1 tablet by mouth once daily as needed for cold/allergy symptoms. 30 tablet 2 02/17/2023 03/19/2023 Active Comment on above: Take 1 tablet by jose maria th once daily as needed for cold/allergy symptoms. methocarbamol 500 mg oral tablet (1 source) Muscle Relaxant Start: 5 take 2 tablets by mouth four times daily as needed for pain Methocarbamol 500 mg tablet Active 1000 mg PO 4 TIMES DAILY as needed for Muscle pain/spasm 56 0 April 26, 2025 12:20am MULTIVITAMIN/IRON/FOLI C ACID (DAILY MULTI ORAL) (20 sources) take 1 tablet by mouth once daily MULTIVITAMIN/IRON/FOL IC ACID (DAILY MULTI ORAL) Take 1 tablet by mouth once daily. Active take 1 tablet by mouth once jacklyn y MULTIVITAMIN/IRON/FOLIC ACID (DAILY MULTI ORAL) Take 1 tablet by mouth once daily. 0 Active Comment on above: Take 1 tablet by jose maria th once daily. ondansetron 4 mg oral tablet (20 sources) Serotonin-3 Receptor Antagonist Start: 3 End: 3 take 1 tablet by mouth every eight hours as needed for anxiety and anxiety ondansetron (ZOFRAN) 4 mg tablet Indications: Anxiety Take 1 tablet by mouth every 8 hours as needed. 20 tablet 0 08/26/2023 09/25/2023 Active Start: 05-11-2022 End: 05-22-2022 take 1 tablet by mouth every eight hours as needed for nausea ondansetron (ZOFRAN) 4 mg tablet Indications: Post-operative state Take 1 tablet by mouth every 8 hours as needed for nausea/vomiting. 12 tablet 0 05/23/2022 Active Start: 07-27-2021 End: 04-12-2022 take 1 tablet by mouth every eight hours as needed for nausea ondansetron orally disintegrating (ZOFRAN ODT) 8 mg disintegrating tablet Indications: prevention of post-operative nausea and vomiting Take 1 tablet by mouth every 8 hours as needed for nausea/vomiting. 6 tablet 0 07/27/2021 04/12/2022 Discontinued (Course of therapy completed) Comment on above: Take 1 tablet by jose maria th every 8 hours as needed for nausea/vomiting. Take 1 tablet by jose maria th every 8 hours as needed. Oral Medication Containers (SHARPS CONTAINER[place] [facility] [place] (20 sources) Start: 12-23-19 End: 05-27-20 take 1 dose by mouth every week as needed Oral Medication Containers (SHARPS CONTAINER) [facility] [place] Indications: Gender dysphoria Use as needed weekly to store used sharps from estradiol injections 1 Each 12/23/2023 05/27/2024 Discontinued Start: 12-23-2023 take 1 dose by mouth every week as needed Oral Medication Containers (SHARPS CONTAINER) [facility] [place] Indications: Gender dysphoria Use as needed weekly to store used sharps from estradiol injections 1 Each 12/23/2023 Active Comment on above: Use as needed weekly to store used sharps from estradiol injections phentermine hydrochloride 37.5 mg oral tablet (20 sources) Sympathomimetic Amine Anorectic Start: 04-05-20 End: 07-23-20 take 1 tablet by mouth once daily Phentermine HCl 37.5 mg tablet Indications: History of obesity Take 1 tablet by mouth once daily for 90 days. 30 tablet 2 04/24/2025 07/23/2025 Active Start: 03-12-2024 End: 03-16-2025 take 34-34.9 tablets by mouth once daily Phentermine HCl 37.5 mg tablet Indications: Class 1 obesity due to excess calories without serious comorbidity with body mass index (BMI) of 34.0 to 34.9 in adult Take 1 tablet by mouth once daily for 90 days. 30 tablet 2 12/16/2024 03/16/2025 Active spironolactone 50 mg oral tablet (20 sources) Aldosterone Antagonist Start: 02-05-2024 Spironolactone Activ e 50 MG PO Q1February 05, 2024 12:00am Start: 12-03-2023 End: 11-29-2024 take 1 tablet by mouth every twelve hours spironolactone (ALDACTONE) 50 mg tablet Indications: Gender dysphoria Take 1 tablet by mouth every 12 hours. 180 tablet 1 11/29/2024 Active Start: 12-21-2021 End: 12-03-2023 take 1 tablet by mouth twice daily spironolactone (ALDACTONE) 50 mg tablet Indications: Gender dysphoria take 1 tablet by mouth twice a day 180 tablet 1 06/05/2023 12/03/2023 Discontinued Start: 12-26-2020 End: 06-19-2021 take 1 tablet by mouth twice daily spironolactone (ALDACTONE) 50 mg tablet Indications: Gender dysphoria take 1 tablet by mouth twice a day 180 tablet 1 12/26/2020 06/19/2021 Discontinued Comment on above: Take 1 tablet by jose maria th twice daily. take 1 tablet by jose maria th twice a day Take 1 tablet by jose maria th every 12 hours. traZODone hydrochloride 50 mg oral tablet (20 sources) Serotonin Reuptake Inhibitor Start: End: take 1 tablet by mouth at bedtime as needed traZODone (DESYREL) 50 mg tablet Indications: Insomnia, unspecified type Take 1 tablet by mouth at bedtime as needed. 90 tablet 1 02/28/2025 Active Start: 01-13-2023 End: 02-12-2023 take 1 tablet by mouth at bedtime as needed traZODone (DESYREL) 50 mg tablet Indications: Insomnia, unspecified type Take 1 tablet by mouth at bedtime as needed. 30 tablet 0 02/04/2023 Active Comment on above: Take 1 tablet by jose maria th at bedtime as needed. take 1 tablet by jose maria th at bedtime if needed Completed/Discontinued Medications Medication Drug Class(es) Dates Sig (Normalized) Sig (Original) acetaminophen 500 mg oral tablet (20 sources) Start: 05-11-2022 End: 08-19-2023 take 2 tablets by mouth every six hours as needed acetaminophen (TYLENOL EXTRA STRENGTH) 500 mg tablet Take 2 tablets by mouth every 6 hours as needed for pain 30 tablet 0 05/11/2022 08/19/2023 Discontinued Comment on above: Take 2 tablets by mo [facility] every 6 hours as needed for pain acetaminophen 325 mg / oxyCODONE hydrochloride 5 mg oral tablet (5 sources) Opioid Agonist Start: 02-25-2023 End: 02-05-2024 Oxycodone-Acetamino phen (Percocet) 5-325 mg tablet Discontinued 1 {tbl} PO EVERY 6 HOURS as needed for pain 12 3 0 February 25, 2023 February 05, 2024 10:12pm Contusion of left wrist, initial encounter Sprain of left wrist Contusion of left wrist, initial encounter Unspecified sprain of left wrist, initial encounter busPIRone hydrochloride 10 mg oral tablet (20 sources) Start: 08-26-2023 End: 05-02-2025 take 1 tablet by mouth three times daily busPIRone (BUSPAR) 10 mg tablet Indications: Anxiety Take 1 tablet by mouth three times a day. 90 tablet 2 02/01/2025 05/02/2025 Start: 01-13-2023 End: 08-26-2023 take 1 tablet by mouth twice daily busPIRone (BUSPAR) 7.5 mg tablet Indications: Anxiety and depression Take 1 tablet by mouth twice daily. 180 tablet 1 07/07/2023 08/26/2023 Discontinued Start: 11-18-2022 End: 01-13-2023 take 1 tablet by mouth once daily busPIRone (BUSPAR) 10 mg tablet take 1 tablet by mouth once daily 90 tablet 0 11/18/2022 01/13/2023 Discontinued Start: 04-22-2022 End: 05-14-2022 take 1 tablet by mouth once daily busPIRone (BUSPAR) 10 mg tablet Take 1 tablet by mouth once daily. 30 tablet 5 05/14/2022 Active Comment on above: Take 1 tablet by jose maria once daily. take 1 tablet by jose maria once daily Take 1 tablet by jose maria twice daily. Take 1 tablet by jose maria three times a day. take 1 tablet by jose maria three times a day ciprofloxacin 500 mg oral tablet (1 source) Quinolone Antimicrobial Start: End: take 1 tablet by mouth twice daily ciprofloxacin HCl (CIPRO) 500 mg tablet Indications: Recurrent UTI Take 1 tablet by mouth twice daily for 5 days. 10 tablet 0 05/05/2023 05/10/2023 Comment on above: Take 1 tablet by jose maria twice daily for 5 days. cyclobenzaprine hydrochloride 10 mg oral tablet (5 sources) Muscle Relaxant Start: End: take 1 tablet by mouth every eight hours as needed cyclobenzaprine (FLEXERIL) 10 mg tablet Take 1 tablet by mouth three times daily as needed for muscle spasm. 21 tablet 0 11/26/2021 04/12/2022 Discontinued (Discontinued by Patient) Comment on above: Take 1 tablet by jose maria three times daily as needed for muscle spasm. dexamethasone 6 mg oral tablet (7 sources) Corticosteroid Start: End: take 1 tablet by mouth once daily Dexamethasone 6 MG tablet Discontinued 6 mg PO DAILY 5 0 November 01, 2020 1:00am July 24, 2024 1:24am docusate sodium 100 mg oral capsule (20 sources) Start: End: take 1 capsule by mouth every twelve hours as needed docusate sodium (COLACE) 100 mg capsule Take 1 capsule by mouth twice daily as needed for constipation. 20 capsule 0 05/11/2022 11/21/2022 Discontinued Comment on above: Take 1 capsule by mo [facility] twice daily as needed for constipation. Dulaglutide (20 sources) GLP-1 Receptor Agonist Start: End: Dulaglutide (Dulaglutide 3 Mg/0.5 Ml Subcutaneous Pen Injector) 3 mg/0.5 mL pen injector Discontinued 3 mg SC EVERY WEEK February 05, 2024 12:00am July 24, 2024 1:24am Start: 02-05-2024 Dulaglutide (D ulaglutide 3 Mg/0.5 Ml Subcutaneous Pen Injector) 3 mg/0.5 mL pen injector Active 3 MG SC EVERY WEEK February 05, 2024 12:00am Start: 08-19-2023 End: 12-09-2023 dulaglutide (TRULICITY) 0.75 mg/0.5 mL pen injector Inject 0.75 mg subcutaneously one time a week. for 4 weeks then increase to 1.5 mg dose. 2 mL 0 08/19/2023 12/09/2023 Discontinued Start: 08-19-2023 End: 12-09-2023 dulaglutide (TRULICITY) 1.5 mg/0.5 mL pen injector Inject 1.5 mg subcutaneously one time a week. start 1 week after last 0.75 mg dose. 2 mL 2 08/19/2023 12/09/2023 Discontinued Comment on above: Inject 0.75 mg subcu taneously one time a week. for 4 weeks then increase to 1.5 mg dose. Inject 1.5 mg subcut aneously one time a week. start 1 week after last 0.75 mg dose. hydrOXYzine hydrochloride 25 mg oral tablet (12 sources) Antihistamine Start: End: take 1 tablet by mouth once daily at bedtime hydrOXYzine HCl (ATARAX) 25 mg tablet Indications: Anxiety Take 1 tablet by mouth daily at bedtime. 20 tablet 0 09/11/2023 12/23/2023 Discontinued Comment on above: Take 1 tablet by jose maria th daily at bedtime. ibuprofen 600 mg oral tablet (7 sources) Nonsteroidal Anti-inflammatory Drug Start: End: take 1 tablet by mouth every six hours as needed for pain Ibuprofen 600 mg tablet Discontinued 600 mg PO EVERY 6 HOURS NEEDED as needed for fever or pain February 11, 2022 12:00am July 24, 2024 1:25am lidocaine 25 mg/ml / prilocaine 25 mg/ml topical cream (1 source) Antiarrhythmic, Amide Local Anesthetic Start: End: lidocaine-prilocaine (EMLA) 2.5-2.5 % cream Apply to affected area as needed. 30 g 1 01/09/2021 09/04/2021 Discontinued LORazepam 0.5 mg oral tablet (4 sources) Benzodiazepine Start: End: take 1 tablet by mouth once daily as needed for anxiety Lorazepam 0.5 mg tablet Discontinued 0.5 mg PO DAILY as needed for anxiety 3 0 July 24, 2024 12:00am October 05, 2024 11:46am naproxen 500 mg oral tablet (1 source) Nonsteroidal Anti-inflammatory Drug Start: End: take 1 tablet by mouth twice daily Naproxen 500 mg tablet Discontinued 500 mg PO TWICE A DAY 14 0 May 18, 2024 12:00am July 24, 2024 1:25am nitrofurantoin, macrocrystals 25 mg / nitrofurantoin, monohydrate 75 mg oral capsule (6 sources) Nitrofuran Antibacterial Start: End: take 1 capsule by mouth twice daily Nitrofurantoin Monohyd/M-Cryst 100 mg capsule Discontinued 1 NMA PO TWICE A DAY February 05, 2024 12:00am July 24, 2024 1:25am Start: 04-30-2023 End: 05-05-2023 take 1 capsule by mouth twice daily nitrofurantoin monohydrate and macrocrystal (MACROBID) 100 mg capsule Take 1 capsule by mouth twice daily for 5 days. 10 capsule 0 04/30/2023 05/05/2023 Active Start: 06-24-2022 End: 07-01-2022 take 1 capsule by mouth twice daily nitrofurantoin monohydrate and macrocrystal (MACROBID) 100 mg capsule Take 1 capsule by mouth twice daily for 7 days. 14 capsule 0 06/24/2022 07/01/2022 Active Comment on above: Take 1 capsule by [facility] twice daily for 7 days. Take 1 capsule by [facility] twice daily for 5 days. oxyCODONE hydrochloride 5 mg oral tablet (20 sources) Opioid Agonist Start: End: take 1 tablet by mouth every eight hours as needed for pain oxyCODONE IR (ROXICODONE) 5 mg immediate release tablet Indications: Post-op pain Take 1 tablet by mouth every 8 hours as needed for pain. 21 tablet 0 05/11/2022 Active Comment on above: Take 1 tablet by jose maria th every 8 hours as needed for pain. phenazopyridine hydrochloride 200 mg oral tablet (11 sources) Start: End: take 1 tablet by mouth every eight hours as needed phenazopyridine (PYRIDIUM) 200 mg tablet Take 1 tablet by mouth three times daily as needed. 6 tablet 0 04/30/2023 08/19/2023 Discontinued Comment on above: Take 1 tablet by jose maria th three times daily as needed. predniSONE 10 mg oral tablet (5 sources) Start: End: predniSONE (DELTASONE) 10 mg tablet Take 4 tabs daily for 3 days, then 2 tabs daily for 3 days, then 1 tab daily for 3 days with food. 21 tablet 0 11/26/2021 04/12/2022 Discontinued (Course of therapy completed) Comment on above: Take 4 tabs daily fo r 3 days, then 2 tabs daily for 3 days, then 1 tab daily for 3 days with food. progesterone 100 mg oral capsule (20 sources) Progesterone Start: 024 End: take 1 capsule by mouth twice daily Progesterone Micronized 100 mg capsule Discontinued 100 mg PO TWICE A DAY February 05, 2024 12:00am April 25, 2025 8:43pm Start: 05-14-2023 End: 12-23-2023 take 1 capsule by mouth twice daily progesterone micronized (PROMETRIUM) 100 mg capsule take 1 capsule by mouth twice a day 180 capsule 0 08/18/2023 12/23/2023 Discontinued Start: 02-17-2023 End: 05-18-2023 take 1 capsule by mouth once daily at bedtime progesterone micronized (PROMETRIUM) 100 mg capsule Take 1 capsule by mouth daily at bedtime. 30 capsule 2 02/17/2023 05/14/2023 Discontinued Comment on above: Take 1 capsule by mo [facility] daily at bedtime. take 1 capsule by mo [facility] at bedtime Take 1 capsule by mo [facility] twice daily. take 1 capsule by [facility] twice a day promethazine hydrochloride 25 mg oral tablet (1 source) Phenothiazine Start: 05-05-20 End: 05-10-20 take 1 tablet by mouth every six hours as needed promethazine (PHENERGAN) 25 mg tablet Take 1 tablet by mouth every 6 hours as needed for nausea/vomiting for up to 5 days. 20 tablet 0 05/05/2023 05/10/2023 Comment on above: Take 1 tablet by [facility] every 6 hours as needed for nausea/vomiting for up to 5 days. pumpkin seed extract-soy germ (AZO BLADDER CONTROL) 300 mg cap (6 sources) End: 02-18-20 pumpkin seed extract-soy germ (AZO BLADDER CONTROL) 300 mg cap Take by mouth. 0 02/17/2023 Discontinued pumpkin seed ext ract-soy germ (AZO BLADDER CONTROL) 300 mg cap Take by mouth. 0 Active Comment on above: Take by mouth. traMADol hydrochloride 50 mg oral tablet (7 sources) Opioid Agonist Start: 02-11-2022 End: 07-24-2024 take 1 tablet by mouth every eight hours as needed for pain Tramadol 50 mg tablet Discontinued 50 mg PO Q8H as needed for pain 9 0 February 11, 2022 12:00am July 24, 2024 1:25am Avulsion of nail plate tretinoin 0.25 mg/ml topical cream (1 source) Retinoid Start: 07-24-2024 End: 04-25-2025 Tretinoin 0.025 % cream Discontinued 1 NMA TOPICAL AT BEDTIME July 24, 2024 12:00am April 25, 2025 8:44pm Problems Active Problems Problem Classification Problem Date Documented Date Episodic/Chronic Adjustment disorders (2 sources) Adjustment disorder with mixed anxiety and depressed mood; Translations: [Adjustment disorder with mixed anxiety and depressed mood] Chronic Anxiety disorders (20 sources) Mixed anxiety and depressive disorder; Translations: [Anxiety disorder, unspecified] Onset: 10-05-2024 Chronic Blindness and vision defects (3 sources) Photophobia; Translations: [Visual discomfort, unspecified] Onset: 04-28-2025 04-25-2025 Episodic Conditions associated with dizziness or vertigo (2 sources) Vertigo; Translations: [Dizziness and giddiness] Onset: 04-25-2025 04-25-2025 Episodic Deficiency and other anemia (1 source) Hemoglobin low; Translations: [Anemia, unspecified] Episodic Genitourinary symptoms and ill-defined conditions (11 sources) Abnormal urine odor; Translations: [Unspecified abnormal findings in urine] Episodic Headache; including migraine (2 sources) Headache; including migraine; Translations: [Headache, unspecified] Onset: 04-25-2025 Malaise and fatigue (2 sources) Fatigue; Translations: [Other fatigue] Onset: 05-02-2025 04-28-2025 Episodic Miscellaneous mental health disorders (20 sources) Gender dysphoria; 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, unspecified] Onset: 07-17-2021 07-17-2021 Chronic Nausea and vomiting (2 sources) Nausea and vomiting; Translations: [Nausea with vomiting, unspecified] Onset: 04-25-2025 04-25-2025 Episodic Open wounds of extremities (1 source) Puncture wound of right foot; Translations: [Puncture wound without foreign body, right foot, initial encounter] 05-03-2024 Episodic Open wounds of head; neck; and trunk (7 sources) Nail finding; Translations: [Avulsion of nail plate] 02-11-2022 Episodic Other circulatory disease (1 source) Elevated blood-pressure reading without diagnosis of hypertension; Translations: [Elevated blood-pressure reading, without diagnosis of hypertension] 05-26-2024 Episodic Other connective tissue disease (1 source) Spasm; Translations: [Other muscle spasm] 04-26-2025 Episodic Other connective tissue disease (2 sources) Muscle pain; Translations: [Myalgia, unspecified site] 04-28-2025 Episodic Other connective tissue disease (1 source) Myalgia, unspecified site; Translations: [Myalgias] Onset: 05-02-2025 Episodic Other nervous system disorders (2 sources) Paresthesia; Translations: [Paresthesia of skin] 02-05-2024 Episodic Other nutritional; endocrine; and metabolic disorders (20 sources) Obesity; Translations: [Obesity, unspecified] Onset: 07-17-2021 07-17-2021 Chronic Other nutritional; endocrine; and metabolic disorders (6 sources) Obesity caused by energy imbalance; Translations: [Other obesity due to excess calories] 08-19-2023 Chronic Other nutritional; endocrine; and metabolic disorders (1 source) Other obesity due to excess calories; Translations: [Class 1 obesity due to excess calories without serious comorbidity with body mass index (BMI) of 34.0 to 34.9 in adult] Onset: 07-17-2021 Chronic Other nutritional; endocrine; and metabolic disorders (1 source) Body mass index (BMI) 34.0-34.9, adult; Translations: [Class 1 obesity due to excess calories without serious comorbidity with body mass index (BMI) of 34.0 to 34.9 in adult] Onset: 07-17-2021 Chronic Other nutritional; endocrine; and metabolic disorders (1 source) H/O: obesity; Translations: [Personal history of other endocrine, nutritional and metabolic disease] 04-24-2025 Episodic Other screening for suspected conditions (not mental disorders or infectious disease) (1 source) Raised TSH level; Translations: [Other specified abnormal findings of blood chemistry] 05-04-2025 Episodic Other skin disorders (1 source) Alopecia; Translations: [Nonscarring hair loss, unspecified] 01-21-2024 Episodic Other skin disorders (1 source) Disorder of skin AND/OR subcutaneous tissue of neck; Translations: [Excessive and redundant skin and subcutaneous tissue] 01-26-2024 Episodic Other skin disorders (1 source) Mass of skin; Translations: [Localized swelling, mass and lump, unspecified] 03-05-2024 Episodic Other skin disorders (2 sources) Swelling of hand; Translations: [Other specified soft tissue disorders] 01-24-2025 Episodic Other skin disorders (2 sources) Night sweats; Translations: [Generalized hyperhidrosis] 04-28-2025 Episodic Other skin disorders (1 source) Generalized hyperhidrosis; Translations: [Night sweats] Onset: 05-02-2025 Episodic Other upper respiratory disease (2 sources) Congestion of nasal sinus; Translations: [Nasal congestion] 04-28-2025 Episodic Other upper respiratory disease (1 source) Nasal congestion; Translations: [Sinus congestion] Onset: 04-28-2025 Episodic Other upper respiratory infections (1 source) Bacterial sinusitis; Translations: [Chronic sinusitis, unspecified] 03-05-2024 Chronic Other upper respiratory infections (2 sources) Sore throat symptom; Translations: [Acute pharyngitis, unspecified] 03-05-2024 Episodic Pleurisy; pneumothorax; pulmonary collapse (1 source) Acute dry pleurisy; Translations: [Pleurisy] 05-26-2024 Episodic Residual codes; unclassified (6 sources) Postoperative state; Translations: [Other specified postprocedural states] Episodic Residual codes; unclassified (3 sources) Patient encounter status; Translations: [Encounter for cosmetic surgery] 01-26-2024 Episodic Residual codes; unclassified (1 source) Patient's unintentional underdosing of medication regimen for other reason; Translations: [Drug treatment stopped due to patient running out of medication] 08-01-2024 Episodic Spondylosis; intervertebral disc disorders; other back problems (1 source) Pain in lumbar spine ; Translations: [Lumbar spine pain] 11-26-2021 Episodic Sprains and strains (5 sources) Sprain of wrist; Translations: [Unspecified sprain of left wrist, initial encounter] 02-25-2023 Episodic Superficial injury; contusion (9 sources) Contusion of left wrist; Translations: [Contusion of left wrist, initial encounter] 02-25-2023 Episodic Thyroid disorders (20 sources) Acquired hypothyroidism; Translations: [Hypothyroidism, unspecified] Onset: 01-24-2025 Chronic Unclassified (1 source) Gender incongruence 01-24-2025 Unclassified (1 source) Headaches; Translations: [Headaches] Onset: 05-02-2025 Unclassified (1 source) Class 1 obesity due to excess calories without serious comorbidity with body mass index (BMI) of 34.0 to 34.9 in adult; Translations: [Class 1 obesity due to excess calories without serious comorbidity with body mass index (BMI) of 34.0 to 34.9 in adult] Onset: 07-17-2021 Viral infection (14 sources) Disease caused by 2019-nCoV; Translations: [COVID-19] 11-01-2020 Episodic Past or Other Problems Problem Classification Problem Date Documented Da te Episodic/Chronic Abdominal pain (20 sources) Indigestion; Translations: [Epigastric pain] Onset: 04-22-2022 04-22-2022 Episodic Administrative/social admission (20 sources) Person with feared health complaint in whom no diagnosis is made; Translations: [Person with feared complaint in whom no diagnosis was made] Onset: 09-04-2021 09-04-2021 Episodic Anal and rectal conditions (20 sources) Anorectal pain; Translations: [Other specified diseases of anus and rectum] Onset: 06-26-2023 Resolved: 12-23-2023 06-26-2023 Episodic E Codes: Adverse effects of medical drugs (20 sources) Adverse reaction to drug; Translations: [Adverse effect of unspecified drugs, medicaments and biological substances, initial encounter] Onset: 11-10-2020 Resolved: 04-12-2022 11-10-2020 Episodic Headache; including migraine (20 sources) Sinus headache; Translations: [Sinus headache] Onset: 01-13-2023 Resolved: 12-23-2023 01-07-2023 Episodic Nonspecific chest pain (5 sources) Chest pain; Translations: [Chest pain, unspecified] Onset: 10-08-2024 02-05-2024 Episodic Other circulatory disease (1 source) Other specified symptoms and signs involving the circulatory and respiratory systems; Translations: [Other specified symptoms and signs involving the circulatory and respiratory systems] Onset: 06-02-2024 Episodic Other infections; including parasitic (20 sources) Personal history of other infectious and parasitic diseases; Translations: [History of 2019 novel coronavirus disease (COVID-19)] Onset: 11-10-2020 11-10-2020 Episodic Other upper respiratory disease (20 sources) Incompetence of nasal valve; Translations: [Other specified disorders of nose and nasal sinuses] Onset: 04-12-2022 Resolved: 12-23-2023 Episodic Other upper respiratory disease (20 sources) Deviated nasal septum; Translations: [Deviated nasal septum] Onset: 04-12-2022 Resolved: 12-23-2023 Episodic Residual codes; unclassified (20 sources) Insomnia; Translations: [Insomnia, unspecified] Onset: 01-13-2023 Episodic Screening and history of mental health and substance abuse codes (20 sources) Ex-smoker; Translations: [Personal history of nicotine dependence] Onset: 07-17-2021 07-17-2021 Episodic Skin and subcutaneous tissue infections (20 sources) Pilonidal cyst with abscess; Translations: [Pilonidal cyst with abscess] Onset: 02-13-2009 Resolved: 12-23-2023 05-23-2016 Episodic Urinary tract infections (20 sources) Recurrent urinary tract infection; Translations: [Urinary tract infection, site not specified] Onset: 05-05-2023 05-05-2023 Episodic Results Test Name Value Interpretation Reference Range Facility [facility] SEGUNDO QUEZADA ([id number]) 1980 M T Date Time Provider Department 05/10/25 JARED SCHILLING [facility] During your visit today, we recorded the following information about you: Velia Munson RN 05/10/2025 10:27 AM Signed Shabbir Flannery [facility] [place] (supporting Rickie Cornell PA-C)1 hour ago (9:01 AM) Hey there, I wanted to touch base that my throat is swollen and feels like it?s throbbing inside. My voice has become very horse. I still feel extremely nauseous and have little to no appetite and a fair amount of body pain and discomfort. What are some next steps we can take? Thank you so much for all of your time and effort. Eliot Fraga RN 05/10/2025 10:40 AM Signed Left message for patient to call back. Please transfer to triage when call is returned thank you Eliot Curry RN, RN 05/12/2025 9:57 AM Signed Patient reports that since their evaluation in the office on 04/28, they have developed throat pain. The pain is described as a deep, constant, throbbing sensation. No visible changes noted in the oropharynx; no erythema or exudate observed. Patient reports pain with swallowing. Persistent daily nausea is noted. Patient denies fever at this time. Joint pain continues. Voice remains hoarse. Patient was advised to schedule an in-office appointment for further evaluation. Patient is agreeable and has been transferred to the scheduling team. Allergies As of Date: 05/10/2025 Noted Allergy Reaction GREEN TEA 01/24/2025 10 - Anaphylaxis SEASONAL ALLERGIES 01/24/2025 16 - Unknown Date Reviewed: 04/25/2025 Reviewed by: Erin Irizarry MA - Fully Assessed Reason for Visit: Nurse Triage Call [185] Throat Problem [109] Prescriptions as of 05/12/2025 - Phentermine HCl 37.5 mg tablet Take 1 tablet by mouth once daily for 90 days. - estradiol (ESTRACE) 2 mg tablet Take 1 tablet by mouth three times a day. - traZODone (DESYREL) 50 mg tablet Take 1 tablet by mouth at bedtime as needed. - spironolactone (ALDACTONE) 50 mg tablet Take 1 tablet by mouth every 12 hours. - levothyroxine (SYNTHROID) 25 mcg tablet take 1 tablet by mouth once daily - finasteride (PROPECIA) 1 mg tablet take 1 tablet by mouth once daily - fluvoxaMINE (LUVOX) 100 mg tablet take 1 tablet by mouth every morning - famotidine (PEPCID) 20 mg tablet take 1 tablet by mouth twice a day if needed - MULTIVITAMIN/IRON/FOL IC ACID (DAILY MULTI ORAL) Take 1 tablet by mouth once daily. Problem List As Of Date 05/10/2025 Noted Resolved Cellulitis and abscess of unspecified site [L03*02/13/2009 08/10/2019 History of 2019 novel coronavirus disease (COVI*11/10/2020 Drug reaction [T50.905A] 11/10/2020 04/12/2022 Gender dysphoria [F64.9] 07/17/2021 Obesity [E66.9] 07/17/2021 Former smoker [Z87.891] 07/17/2021 Concern about skin disease without diagnosis [Z*09/04/2021 Nasal valve collapse [J34.829] 04/12/2022 12/23/2023 Nasal septal deviation [J34.2] 04/12/2022 12/23/2023 Hypothyroidism [E03.9] Anxiety and depression [F41.9, F32.A] Dyspepsia [R10.13] 04/22/2022 Insomnia [G47.00] 01/13/2023 Recurrent UTI [N39.0] 05/05/2023 Pilonidal cyst with abscess [L05.01] 05/22/2023 12/23/2023 Diagnosed: 05/22/2023 Sinus headache [R51.9] 01/13/2023 12/23/2023 Diagnosed: 05/22/2023 Anal or rectal pain [K62.89] 06/26/2023 12/23/2023 Encounter Status:Closed by ELIOT FRAGA on 05/12/25 Normal [facility] THERESA BY IFA WITH REFLEXon Nuclear Ab Ql (S) Negative Normal Negative [facility] Comment on above: Order Comment: Speci men Type: BLOOD SPECIMENOrdering Facility: [facility] Address: [address] [place] [address] Result Comment: Anti -nuclear antibody test is used as an aid in diagnosis of systemic autoimmune diseases. Where positive and clinically warranted, follow-up using disease-specific testing is recommended. Low positive titers are not uncommon with advanced age, certain chronic infections, and malignancies among others. Test methodology: Indirect fluorescence immunoassay (IFA) using HEp-2 cells. Performed By: #### A NAIFR ####[facility] [id number] [place] [address] [place] B. burgdorferi IgG and IgM p david (S)on 05-02-2025 B. burgdorferi IgG+IgM Qn (S) Negative Normal Negative [facility] Comment on above: Order Comment: Landeni monty Type: BLOOD SPECIMENOrdering Facility: [facility] Address: [address] [place] [address] Result Comment: Rece nt infection with B. burgdorferi sensu lato cannot be excluded if the specimen collected within four weeks after the onset of signs and symptoms or within six weeks after a known tick exposure. Clinical and epidemiological correlation is required. Performed By: #### 7 853-5, 23375-5, 7852-7 ####[facility] [id number] [place] [address] [place] BLOOD TB SCREENon 05-02-2025 M. tuberculosis tuberculin stim IFN-g Ql (Bld) Negative Normal [facility] Comment on above: Order Comment: Speci men Type: BLOOD SPECIMENOrdering Facility: [facility] Address: [address] [place] [address] Performed By: #### I NFTBP ####[facility] [id number] [place] [address] [place] MITOGEN MINUS NIL >9.98 Normal >=0.50 [facility] Comment on above: Order Comment: Speci men Type: BLOOD SPECIMENOrdering Facility: [facility] Address: [address] [place] [address] Performed By: #### I NFTBP ####[facility] [id number] [address] OF [facility] TB GAMMA INTERPRETATION Infection with M . tuberculosis complex is unlikely. If latent tuberculosis infection is highly suspected, a negative result does not rule out the infection. Specimens from immunocompromised patients and those <5 years of age may show false negative results. In case of a contact investigation, please repeat 8-12 weeks after a known exposure. Normal [facility] Comment on above: Order Comment: Speci men Type: BLOOD SPECIMENOrdering Facility: [facility] Address: [address] [place] [address] Performed By: #### I NFTBP ####[facility] [id number] [address] TB NIL 0.02 IU/mL Normal <=8.00 [facility] Comment on above: Order Comment: Speci men Type: BLOOD SPECIMENOrdering Facility: [facility] Address: [address] [place] [address] Performed By: #### I NFTBP ####[facility] [id number] [address] [place] TB1 AG MINUS NIL 0.00 IU/mL Normal <0.35 [facility] Comment on above: Order Comment: Speci men Type: BLOOD SPECIMENOrdering Facility: [facility] Address: [address] [place] [address] Performed By: #### I NFTBP ####[facility] [id number] [place] [address] [place] TB2 AG MINUS NIL 0.00 IU/mL Normal <0.35 [facility] Comment on above: Order Comment: Speci men Type: BLOOD SPECIMENOrdering Facility: [facility] Address: [address] [place] [address] Performed By: #### I NFTBP ####[facility] [id number] [place] [address] [place] CBC W Auto Differential pane l (Bld)on 05-02-2025 Basophils (Bld) [#/Vol] 0.03 10*3/uL Normal <0.11 [facility] Comment on above: Order Comment: Speci men Type: BLOOD SPECIMENOrdering Facility: [facility] Address: [address] [place] [address] Performed By: #### 4 537-7, 52301-7 ####[facility] [id number] [address] [place] Basophils/100 WBC (Bld) 0.4 % Normal [facility] Comment on above: Order Comment: Speci men Type: BLOOD SPECIMENOrdering Facility: [facility] Address: [address] [place] [address] Performed By: #### 4 537-7, 02180-0 ####[facility] [id number] [place] [address] [place] Differential cell count method Nom (Bld) Auto Normal [facility] Comment on above: Order Comment: Speci men Type: BLOOD SPECIMENOrdering Facility: [facility] Address: [address] [place] [address] Performed By: #### 4 537-7, 81892-4 ####[facility] [id number] [address] [place] [address] [place] Eosinophils (Bld) [#/Vol] 0.07 10*3/uL Normal <0.46 [facility] Comment on above: Order Comment: Speci men Type: BLOOD SPECIMENOrdering Facility: [facility] Address: [address] [place] [address] Performed By: #### 4 537-7, 36544-7 ####[facility] [id number] [address], [facility] [place] Eosinophils/100 WBC (Bld) 1.0 % Normal [facility] Comment on above: Order Comment: Speci men Type: BLOOD SPECIMENOrdering Facility: [facility] Address: [address] [place] [address] Performed By: #### 4 537-7, 27817-7 ####[facility] [id number] [address], [place] [address] [place] Erythrocyte distribution width (RBC) [Ratio] 12.0 % Normal 11.5-15.0 [facility] Comment on above: Order Comment: Speci men Type: BLOOD SPECIMENOrdering Facility: [facility] Address: [address] [place] [address] Performed By: #### 4 537-7, 54531-1 ####[facility] [id number] [place] [id number] [place] Hematocrit (Bld) [Volume fraction] 34.8 % Low 39.0-51.0 [facility] Comment on above: Order Comment: Speci men Type: BLOOD SPECIMENOrdering Facility: [facility] Address: [address] [place] [address] Performed By: #### 4 537-7, 82724-6 ####[facility] [id number] [place] [id number] [place] Hemoglobin (Bld) [Mass/Vol] 13.0 g/dL Normal 13.0-17.0 [facility] Comment on above: Order Comment: Speci men Type: BLOOD SPECIMENOrdering Facility: [facility] Address: [address] [place] [address] Performed By: #### 4 537-7, 66112-1 ####[facility] [id number] [place] [address] [place] Immature granulocytes (Bld) [#/Vol] 10*3/uL Normal <0.10 [facility] Comment on above: Order Comment: Speci men Type: BLOOD SPECIMENOrdering Facility: [facility] Address: [address] [place] [address] Performed By: #### 4 537-7, 12551-8 ####[facility] [id number] [address] [place] Immature granulocytes/100 WBC (Bld) 0.3 % Normal [facility] Comment on above: Order Comment: Speci men Type: BLOOD SPECIMENOrdering Facility: [facility] Address: [address] [place] [address] Performed By: #### 4 537-7, 39098-8 ####[facility] [id number] [place] [address] [place] Lymphocytes (Bld) [#/Vol] 2.97 10*3/uL Normal 1.00-4.00 [facility] Comment on above: Order Comment: Speci men Type: BLOOD SPECIMENOrdering Facility: [facility] Address: [address] [place] [address] Performed By: #### 4 537-7, 27200-9 ####[facility] [id number] [facility] [place] [id number] [place] Lymphocytes/100 WBC (Bld) 41.4 % Normal [facility] Comment on above: Order Comment: Speci men Type: BLOOD SPECIMENOrdering Facility: [facility] Address: [address] [place] [address] Performed By: #### 4 537-7, 94224-5 ####[facility] [id number] [place] [address] [place] MCH (RBC) [Entitic mass] 34.4 pg High 26.0-34.0 [facility] Comment on above: Order Comment: Speci men Type: BLOOD SPECIMENOrdering Facility: [facility] Address: [address] [place] [address] Performed By: #### 4 537-7, 24761-0 ####[facility] [id number] [place] [address] [place] MCHC (RBC) [Mass/Vol] 37.4 g/dL High 30.5-36.0 [facility] Comment on above: Order Comment: Speci men Type: BLOOD SPECIMENOrdering Facility: [facility] Address: [address] [place] [address] Performed By: #### 4 537-7, 53001-9 ####[facility] [id number] [place] [address] [place] MCV (RBC) [Entitic vol] 92.1 fL Normal 80.0-100.0 [facility] Comment on above: Order Comment: Speci men Type: BLOOD SPECIMENOrdering Facility: [facility] Address: [address] [place] [address] Performed By: #### 4 537-7, 37665-8 ####[facility] [id number] [place] [address] [place] Monocytes (Bld) [#/Vol] 0.40 10*3/uL Normal <0.87 [facility] Comment on above: Order Comment: Speci men Type: BLOOD SPECIMENOrdering Facility: [facility] Address: [address] [place] [address] Performed By: #### 4 537-7, 59950-4 ####[facility] LABCLIA [id number] [place] [address] [place] Monocytes/100 WBC (Bld) 5.6 % Normal [facility] Comment on above: Order Comment: Speci men Type: BLOOD SPECIMENOrdering Facility: [facility] Address: [address] [place] [address] Performed By: #### 4 537-7, 75245-9 ####[facility] LABCLIA [id number] [place] [address] [place] Neutrophils (Bld) [#/Vol] 3.69 10*3/uL Normal 1.45-7.50 [facility] Comment on above: Order Comment: Speci men Type: BLOOD SPECIMENOrdering Facility: [facility] Address: [address] [place] [address] Performed By: #### 4 537-7, 70548-6 ####[facility] LABCLIA [id number] [address] [place] Neutrophils/100 WBC (Bld) 51.3 % Normal [facility] Comment on above: Order Comment: Speci men Type: BLOOD SPECIMENOrdering Facility: [facility] Address: [address] [place] [address] Performed By: #### 4 537-7, 79721-5 ####[facility] LABCLIA [id number] [place] [address] [place] Nucleated RBC (Bld) [#/Vol] 10*3/uL Normal <0.01 [facility] Comment on above: Order Comment: Speci men Type: BLOOD SPECIMENOrdering Facility: [facility] Address: [address] [place] [address] Performed By: #### 4 537-7, 68935-7 ####[facility] LABCLIA [id number] [place] [address] [place] Nucleated RBC/100 WBC (Bld) [Ratio] 0.0 /100 WBC Normal [facility] Comment on above: Order Comment: Speci men Type: BLOOD SPECIMENOrdering Facility: [facility] Address: [address] [place] [address] Performed By: #### 4 537-7, 87083-3 ####[facility]CLIA [id number] [place] [address] [place] Platelet mean volume (Bld) [Entitic vol] 10.3 fL Normal 9.0-12.7 [facility] Comment on above: Order Comment: Speci men Type: BLOOD SPECIMENOrdering Facility: [facility] Address: [address] [place] [address] Performed By: #### 4 537-7, 21929-8 ####[facility] LABIA [id number] [place] [address] [place] Platelets (Bld) [#/Vol] 190 10*3/uL Normal 150-400 [facility] Comment on above: Order Comment: Speci men Type: BLOOD SPECIMENOrdering Facility: [facility] Address: [address] [place] [address] Performed By: #### 4 537-7, 38025-7 ####[facility] LABIA [id number] [place] [address] [place] RBC (Bld) [#/Vol] 3.78 10*6/uL Low 4.20-6.00 [facility] Comment on above: Order Comment: Speci men Type: BLOOD SPECIMENOrdering Facility: [facility] Address: [address] [place] [address] Performed By: #### 4 537-7, 11372-0 ####[facility] LABIA [id number] [place] [id number] [place] WBC (Bld) [#/Vol] 7.18 10*3/uL Normal 3.70-11.00 [facility] Comment on above: Order Comment: Speci men Type: BLOOD SPECIMENOrdering Facility: [facility] Address: [address] [place] [address] Performed By: #### 4 537-7, 97160-8 ####[facility] LABCLIA [id number] [place] [address] [place] CK SerPl-cCncon 05-02-2025 CK [Catalytic activity/Vol] 43 U/L Normal [facility] Comment on above: Order Comment: Speci men Type: BLOOD SPECIMENOrdering Facility: [facility] Address: [address] [place] [address] Performed By: #### 2 157-6, 1988-5, 64565-5 ####[facility]CLIA [id number] [place] [address] [place] CMV IgG Qnon 05-02-2025 CMV IGG QUAL Negative Normal Negative [facility] Comment on above: Order Comment: Speci men Type: BLOOD SPECIMENOrdering Facility: [facility] Address: [address] [place] [address] Result Comment: No s erological evidence of past exposure to Cytomegalovirus. Cannot exclude recent infection if the specimen collected within 4-6 weeks after infection. Performed By: #### 7 853-5, 99135-0, 7852-7 ####[facility]CLIA [id number] [place] [address] [place] CMV IgG SerPl-aCncon 025 CMV IgG Qn <0.20 Normal [facility] Comment on above: Order Comment: Speci men Type: BLOOD SPECIMENOrdering Facility: [facility] Address: [address] [place] [address] Result Comment: The magnitude of the measured result is not indicative of the amount of antibody present. U/mL values are interpreted as follows: Negative <0.6 Equivocal 0.6 to <0.70 Positive >=0.70 Performed By: #### 7 853-5, 04460-4, 7852-7 ####[facility]CLIA [id number] [place] [address] [place] CMV IgM Qnon 05-02-2025 CMV IGM, QUAL Negative Normal Negative [facility] Comment on above: Order Comment: Speci men Type: BLOOD SPECIMENOrdering Facility: [facility] Address: [address] [place] [address] Result Comment: No s erological evidence of recent exposure to Cytomegalovirus. Performed By: #### 7 853-5, 99626-1, 7852-7 ####[facility] LABIA [id number] [place] [address] [place] CRP SerPl-mCncon 05-02-2025 CRP [Mass/Vol] mg/L Normal <0.9 [facility] Comment on above: Order Comment: Speci men Type: BLOOD SPECIMENOrdering Facility: [facility] Address: [address] [place] [address] Performed By: #### 2 157-6, 1987-5, 88978-1 ####[facility] [id number] [place] [address] [place] CYTOMEGALOVIRUS (CMV) DNA, Q UANTITATIVE PCR, PLASMAon 05-02-2025 CMV DNA JUVE+probe Qn (P) Not detected Normal Not Detec misty [facility] Comment on above: Order Comment: Speci men Type: BLOOD SPECIMENOrdering Facility: [facility] Address: [address] [place] [address] Performed By: #### C MVQNT ####[facility] LABIA [id number] [place] [address] [place] Comprehensive metabolic 2000 panelon 05-02-2025 Albumin [Mass/Vol] 4.4 g/dL Normal 3.9-4.9 [facility] Comment on above: Order Comment: Speci men Type: BLOOD SPECIMENOrdering Facility: [facility] Address: [address] [place] [address] Performed By: #### 2 4323-8, 3016-3, 3024-7, 3053-6 ####[facility] LABCLIA [id number] [address] [address] [place] ALP [Catalytic activity/Vol] 54 U/L Normal 38-113 [facility] Comment on above: Order Comment: Speci men Type: BLOOD SPECIMENOrdering Facility: [facility] Address: [address] [place] [address] Performed By: #### 2 4323-8, 3016-3, 3024-7, 305-6 ####[facility] LABCLIA [id number] [place] [id number] [place] ALT [Catalytic activity/Vol] 14 U/L Normal 10-54 [facility] Comment on above: Order Comment: Speci men Type: BLOOD SPECIMENOrdering Facility: [facility] Address: [address] [place] [address] Performed By: #### 2 4323-8, 3016-3, 3024-7, 3053-6 ####[facility] LABCLIA [id number] [address] [address] [place] Anion gap [Moles/Vol] 11 mmol/L Normal 8-15 [facility] Comment on above: Order Comment: Speci men Type: BLOOD SPECIMENOrdering Facility: [facility] Address: [address] [place] [address] Performed By: #### 2 4323-8, 3016-3, 3024-7, 3053-6 ####[facility]CLIA [id number] [facility] [address] [address] [place] AST [Catalytic activity/Vol] 18 U/L Normal 14-40 [facility] Comment on above: Order Comment: Speci men Type: BLOOD SPECIMENOrdering Facility: [facility] Address: [address] [place] [address] Performed By: #### 2 4323-8, 3016-3, 3024-7, 3053-6 ####[facility] LABCLIA [id number] [facility] [address] [address] [place] Bilirubin [Mass/Vol] 0.3 mg/dL Normal 0.2-1.3 [facility] Comment on above: Order Comment: Speci men Type: BLOOD SPECIMENOrdering Facility: [facility] Address: [address] [place], [place] [address] Performed By: #### 2 4323-8, 3016-3, 3024-7, 305-6 ####[facility] LABCLIA [id number] [facility] [address] [address] [place] Calcium [Mass/Vol] 9.4 mg/dL Normal 8.5-10.2 [facility] Comment on above: Order Comment: Speci men Type: BLOOD SPECIMENOrdering Facility: [facility] Address: [address] [place], [place] [address] Performed By: #### 2 4323-8, 3016-3, 3024-7, 305-6 ####[facility]CLIA [id number] [facility] [address] [address] [place] Chloride [Moles/Vol] 102 mmol/L Normal 98-107 [facility] Comment on above: Order Comment: Speci men Type: BLOOD SPECIMENOrdering Facility: [facility] Address: [address] [place] [address] Performed By: #### 2 4323-8, 3016-3, 3024-7, 3053-6 ####[facility]CLIA [id number] [facility] [address] [address] [place] CO2 [Moles/Vol] 24 mmol/L Normal 22-30 [facility] Comment on above: Order Comment: Speci men Type: BLOOD SPECIMENOrdering Facility: [facility] Address: [address] [place] [address] Performed By: #### 2 4323-8, 3016-3, 3024-7, 305-6 ####[facility] LABCLIA [id number] [address] [address] [place] Creatinine [Mass/Vol] 0.62 mg/dL Low 0.73-1.22 [facility] Comment on above: Order Comment: Speci men Type: BLOOD SPECIMENOrdering Facility: [facility] Address: [address] [place], [place] [address] Performed By: #### 2 4323-8, 3016-3, 3024-7, 305-6 ####[facility] LABIA [id number] [address] [address] [place] eGFRcr SerPlBld CKD-EPI 2020 121 mL/min/1.73m??? Normal >=60 [facility] Comment on above: Order Comment: Speci men Type: BLOOD SPECIMENOrdering Facility: [facility] Address: [address] [place] [address] Result Comment: Melita mated Glomerular Filtration Rate (eGFR) is calculated using the 2020 CKD-EPI creatinine equation. This equation utilizes serum creatinine, sex, and age as parameters. The creatinine assay has traceable calibration to isotope dilution-mass spectrometry. Refer to KDIGO guidelines for clinical interpretation. In patients with unstable renal function, e.g. those with acute kidney injury, the eGFR may not accurately reflect actual GFR. Performed By: #### 2 4323-8, 3016-3, 3024-7, 3053-6 ####[facility] LABIA [id number] [address] [address] [place] Glucose [Mass/Vol] 95 mg/dL Normal 74-99 [facility] Comment on above: Order Comment: Speci men Type: BLOOD SPECIMENOrdering Facility: [facility] Address: [address] [place], [place] [address] Result Comment: The [place] Diabetes [employer] (ADA) provides guidance for cutoff values for fasting glucose and random glucose. The ADA defines fasting as no caloric intake for at least 8 hours. Fasting plasma glucose results between 100 to 125 mg/dL indicate increased risk for diabetes (prediabetes). Fasting plasma glucose results greater than or equal to 126 mg/dL meet the criteria for diagnosis of diabetes. In the absence of unequivocal hyperglycemia, results should be confirmed by repeat testing. In a patient with classic symptoms of hyperglycemia or hyperglycemic crisis, random plasma glucose results greater than or equal to 200 mg/dL meet the criteria for diagnosis of diabetes. Reference: Standards of Medical Care in Diabetes 2016, [place] [employer]. Diabetes Care. 2016.39(Suppl 1). Performed By: #### 2 4323-8, 6-3, 3024-7, 305-6 ####[facility] LABCLIA [id number] [place] [address] [place] Potassium [Moles/Vol] 3.9 mmol/L Normal 3.7-5.1 [facility] Comment on above: Order Comment: Speci men Type: BLOOD SPECIMENOrdering Facility: [facility] Address: [address] [place] [address] Performed By: #### 2 4323-8, 6-3, 3023-7, 3052-6 ####[facility] LABCLIA [id number] [place] [address] [place] Protein [Mass/Vol] 7.2 g/dL Normal 6.3-8.0 [facility] Comment on above: Order Comment: Speci men Type: BLOOD SPECIMENOrdering Facility: [facility] Address: [address] [place] [address] Performed By: #### 2 4323-8, 6-3, 4-7, 305-6 ####[facility] LABCLIA [id number] [address] [address] [place] Sodium [Moles/Vol] 137 mmol/L Normal 136-144 [facility] Comment on above: Order Comment: Speci men Type: BLOOD SPECIMENOrdering Facility: [facility] Address: [address] [place] [address] Performed By: #### 2 4323-8, 3016-3, 3024-7, 3053-6 ####[facility] LABCLIA [id number] [address] [place] [address] [place] Urea nitrogen [Mass/Vol] 13 mg/dL Normal 9-24 [facility] Comment on above: Order Comment: Speci men Type: BLOOD SPECIMENOrdering Facility: [facility] Address: [address] [place] [address] Performed By: #### 2 4323-8, 3016-3, 3024-7, 3053-6 ####[facility] LABCLIA [id number] [address] [address] [place] Cyclic citrullinated peptide IgG Qnon 05-02-2025 CCP ANTIBODY IGG QUALITATIVE Negative Normal Negative [facility] Comment on above: Order Comment: Speci men Type: BLOOD SPECIMENOrdering Facility: [facility] Address: [address] [place] [address] Performed By: #### 3 3935-8 ####[facility] LABCLIA [id number] [address] [address] [place] RIAZ VARGAS PANELon 025 EBV NA AB, QUAL Positive Abnormal Negative [facility] Comment on above: Order Comment: Speci men Type: BLOOD SPECIMENOrdering Facility: [facility] Address: [address] [place] [address] Performed By: #### E BVPNL ####[facility] LABCLIA [id number] [address] [address] [place] EBV VCA IGG, QUAL Positive Abnormal Negative [facility] Comment on above: Order Comment: Speci men Type: BLOOD SPECIMENOrdering Facility: [facility] Address: [address] [place] [address] Performed By: #### E BVPNL ####[facility] LABIA [id number] [place] [address] [place] EBV VCA IGM, QUAL Negative Normal Negative [facility] Comment on above: Order Comment: Speci men Type: BLOOD SPECIMENOrdering Facility: [facility] Address: [address] [place] [address] Performed By: #### E BVPNL ####[facility] [id number] [place] [address] [place] [facility] [place] INTERPRETATION (EBVPNL) Past Infection. EBV panel interpretation is a general guide that is meant to capture most, but not all, of the possible clinical scenarios. Non-specific reactivities are not uncommon especially with equivocal results. Should the overall interpretation not be consistent with the clinical picture, please contact the medical photographer of the test for assistance. Normal [facility] Comment on above: Order Comment: Speci men Type: BLOOD SPECIMENOrdering Facility: [facility] Address: [address] [place] [address] Performed By: #### E BVPNL ####[facility] [id number] [place] [address] [place] ESR Westergren method (Bld) [Velocity]on 05-02-2025 ESR (Bld) [Velocity] 12 mm/h Normal 0-15 [facility] Comment on above: Order Comment: Speci men Type: BLOOD SPECIMENOrdering Facility: [facility] Address: [address] [place] [address] Performed By: #### 4 537-7, 98004-2 ####[facility] [id number] [place] [address] [place] Heteroph Ab Ser Ql LAon 07-2 Heterophile Ab LA Ql (S) Negative Normal Negative [facility] Comment on above: Order Comment: Speci men Type: BLOOD SPECIMENOrdering Facility: [facility] Address: [address] [place] [id number] Result Comment: Infe ctious Mononucleosis rapid test is used as an aid in diagnosis of acute infection with Riaz-Vargas virus (EBV). The antibody levels may occasionally remain elevated up to several months after a primary EBV infection. Final interpretation should be done in conjunction with EBV-specific serology and clinical correlation. False positive results may occasionally be seen with other infectious agents such as Cytomegalovirus, Toxoplasma, and HIV among others as well as non-infectious conditions such as lymphoma. Clinical correlation is required. Performed By: #### 5 213-4 ####[facility] [id number] [place] [id number] [place] Rheumatoid fact SerPl-aCncon 05-02-2025 Rheumatoid factor Qn [IU]/mL Normal <16 [facility] Comment on above: Order Comment: Speci men Type: BLOOD SPECIMENOrdering Facility: [facility] Address: [address] [place] [address] Performed By: #### 2 157-6, 1987-5, 76083-2 ####[facility] [id number] [place] [id number] [place] T3 SerPl-mCncon 05-02-2025 T3 [Mass/Vol] 144 ng/dL Normal 79-165 [facility] Comment on above: Order Comment: Speci men Type: BLOOD SPECIMENOrdering Facility: [facility] Address: [address] [place] [address] Performed By: #### 2 4323-8, 3016-3, 3024-7, 3053-6 ####[facility] [id number] [place] [id number] [place] T4 Free SerPl-mCncon 025 Free T4 [Mass/Vol] 1.1 ng/dL Normal 0.9-1.7 [facility] Comment on above: Order Comment: Speci men Type: BLOOD SPECIMENOrdering Facility: [facility] Address: [address] [place] [address] Performed By: #### 2 4323-8, 3016-3, 3024-7, 3053-6 ####[facility] LABCLIA [id number] [place] [id number] [place] TSH SerPl-aCncon 05-02-2025 TSH Qn 8.190 m[IU]/L High 0.270-4.200 [facility] Comment on above: Order Comment: Speci men Type: BLOOD SPECIMENOrdering Facility: [facility] Address: [address] [place] [address] Performed By: #### 2 4323-8, 3016-3, 3024-7, 3053-6 ####[facility] LABIA [id number] [place] [address] [place] Urinalysis complete panel (U )on 05-02-2025 Bacteria LM.HPF (Urine sed) [#/Area] Negative Normal Negative [facility] Comment on above: Order Comment: Speci men Type: URINE SPECIMENOrdering Facility: [facility] Address: [address] [place] [address] Performed By: #### 2 4356-8 ####[facility] LABIA [id number] [place] [address] [place] Bilirubin Ql (U) Negative Normal Negative [facility] Comment on above: Order Comment: Speci men Type: URINE SPECIMENOrdering Facility: [facility] Address: [address] [place] [address] Performed By: #### 2 4356-8 ####[facility] LABIA [id number] [place] [address] [place] Clarity (Unsp spec) Clear Normal Clear [facility] Comment on above: Order Comment: Speci men Type: URINE SPECIMENOrdering Facility: [facility] Address: [address] [place] [address] Performed By: #### 2 4356-8 ####[facility] LABCLIA [id number] [place] [address] [place] Color (U) Yellow Normal Yellow [facility] Comment on above: Order Comment: Speci men Type: URINE SPECIMENOrdering Facility: [facility] Address: [address] [place] [address] Performed By: #### 2 4356-8 ####[facility] LABCLIA [id number] [place] [address] [place] Epithelial cells LM.HPF (Urine sed) [#/Area] None Seen Normal [facility] Comment on above: Order Comment: Speci men Type: URINE SPECIMENOrdering Facility: [facility] Address: [address] [place] [address] Performed By: #### 2 4356-8 ####[facility] LABIA [id number] [place] [address] [place] Glucose Test strip (U) [Mass/Vol] Negative Normal Negative [facility] Comment on above: Order Comment: Speci men Type: URINE SPECIMENOrdering Facility: [facility] Address: [address] [place] [address] Performed By: #### 2 4356-8 ####[facility] LABCLIA [id number] [place] [address] [place] Hemoglobin Ql (U) Negative Normal Negative [facility] Comment on above: Order Comment: Speci men Type: URINE SPECIMENOrdering Facility: [facility] Address: [address] [place] [address] Performed By: #### 2 4356-8 ####[facility] LABCLIA [id number] [place] [address] [place] Hyaline casts (Urine sed) [#/Area] 0 /[LPF] Normal 0 /LPF [facility] Comment on above: Order Comment: Speci men Type: URINE SPECIMENOrdering Facility: [facility] Address: [address] [place] [address] Performed By: #### 2 4356-8 ####[facility] LABCLIA [id number] [facility] [address] [place] [address] [place] Ketones Ql (U) Negative Normal Negative [facility] Comment on above: Order Comment: Speci men Type: URINE SPECIMENOrdering Facility: [facility] Address: [address] [place] [address] Performed By: #### 2 4356-8 ####[facility] LABCLIA [id number] [address], [facility]95 [place] Leukocyte esterase Test strip Ql (U) Negative Normal Negative [facility] Comment on above: Order Comment: Speci men Type: URINE SPECIMENOrdering Facility: [facility] Address: [address] [place] [address] Performed By: #### 2 4356-8 ####[facility]CLIA [id number] [address], [facility]95 [place] Nitrite Ql (U) Negative Normal Negative [facility] Comment on above: Order Comment: Speci men Type: URINE SPECIMENOrdering Facility: [facility] Address: [address] [place] [address] Performed By: #### 2 4356-8 ####[facility]IA [id number] [address], [facility]95 [place] pH (U) 6.5 [pH] Normal 5.0-8.0 [facility] Comment on above: Order Comment: Speci men Type: URINE SPECIMENOrdering Facility: [facility] Address: [address] [place], [place] [address] Performed By: #### 2 4356-8 ####[facility]CL[facility] [id number] [address] [place] [address] [place] Protein (U) [Mass/Vol] Negative Normal Negative [facility] Comment on above: Order Comment: Speci men Type: URINE SPECIMENOrdering Facility: [facility] Address: [address] [place] [address] Performed By: #### 2 4356-8 ####[facility] [id number] [place] [address] [place] RBC LM.HPF (Urine sed) [#/Area] 0-2 /HPF Normal 0-2 /HPF [facility] Comment on above: Order Comment: Speci men Type: URINE SPECIMENOrdering Facility: [facility] Address: [address] [place] [address] Performed By: #### 2 4356-8 ####[facility] [id number] [place] [address] [place] Specific gravity (U) [Rel density] 1.007 Normal 1.005-1.030 [facility] Comment on above: Order Comment: Speci men Type: URINE SPECIMENOrdering Facility: [facility] Address: [address] [place] [address] Performed By: #### 2 4356-8 ####[facility] [id number] [place] [address] [place] Urobilinogen Ql (U) 0.2 EU/dL Normal 0.2-1.0 EU/dL [facility] Comment on above: Order Comment: Speci men Type: URINE SPECIMENOrdering Facility: [facility] Address: [address] [place] [address] Performed By: #### 2 4356-8 ####[facility] [id number] [place] [address] [place] WBC LM.HPF (Urine sed) [#/Area] 0-5 /HPF Normal 0-5 /HPF [facility] Comment on above: Order Comment: Speci men Type: URINE SPECIMENOrdering Facility: [facility] Address: [address] [place] [address] Performed By: #### 2 4356-8 ####[facility] LABCLIA [id number] [address] [place] XR CHEST 2V FRONTAL/LATon XR CHEST 2V FRONTAL/LAT * * *Final Repor t* * * DATE OF EXAM: May 02 2025 3:57PM WOX 5291 - XR CHEST 2V FRONTAL/LAT / PROCEDURE REASON: Night sweats * * * * Physician Interpretation * * * * EXAMINATION: CHEST RADIOGRAPH (2 VIEW FRONTAL and LATERAL) CLINICAL HISTORY: Night sweats MQ: XC2_6 EXAM DATE/TIME: 05/02/2025 3:57 PM COMPARISON: Chest x-ray on 07/27/2021 RESULT: Lines, tubes, and devices: None. Lungs and pleura: No consolidation. No lung mass. No pleural effusion. No pneumothorax. Cardiomediastinal silhouette: Normal cardiomediastinal silhouette. Bones and soft tissues: Unremarkable. IMPRESSION: No acute radiographic abnormality. Therapy [facility] Transcribe Date/Time: May 02 2025 5:24P Dictated by : MARYCRUZ TIJERINA MD This examination was interpreted and the report reviewed and electronically signed by: MARYCRUZ TIJERINA MD on May 02 2025 5:24PM EST [id number] Normal [facility] XR Chest PA and Lateralon IMPRESSION: No acute radiographic abnormality. Therapy Site Coordinator: [facility] Transcribe Date/Time: May 02 2025 5:24P Dictated by : MARYCRUZ TIJERINA MD This examination was interpreted and the report reviewed and electronically signed by: MARYCRUZ TIJERINA MD on May 02 2025 5:24PM EST DIVISION OF RADIOLOGY * * *Final Report* * * DATE OF EXAM: May 02 2025 3:57PM WOX 5291 - XR CHEST 2V FRONTAL/LAT / PROCEDURE REASON: Night sweats * * * * Physician Interpretation * * * * EXAMINATION: CHEST RADIOGRAPH (2 VIEW FRONTAL & LATERAL) CLINICAL HISTORY: Night sweats MQ: XC2_6 EXAM DATE/TIME: 05/02/2025 3:57 PM COMPARISON: Chest x-ray on 07/27/2021 RESULT: Lines, tubes, and devices: None. Lungs and pleura: No consolidation. No lung mass. No pleural effusion. No pneumothorax. Cardiomediastinal silhouette: Normal cardiomediastinal silhouette. Bones and soft tissues: Unremarkable. DIVISION OF RADIOLOGY Provider, Mariam Perez - 05/02/2025 * * *Final Report* * * DATE OF EXAM: May 02 2025 3:57PM WOX 5291 - XR CHEST 2V FRONTAL/LAT / PROCEDURE REASON: Night sweats * * * * Physician Interpretation * * * * EXAMINATION: CHEST RADIOGRAPH (2 VIEW FRONTAL & LATERAL) CLINICAL HISTORY: Night sweats MQ: XC2_6 EXAM DATE/TIME: 05/02/2025 3:57 PM COMPARISON: Chest x-ray on 07/27/2021 RESULT: Lines, tubes, and devices: None. Lungs and pleura: No consolidation. No lung mass. No pleural effusion. No pneumothorax. Cardiomediastinal silhouette: Normal cardiomediastinal silhouette. Bones and soft tissues: Unremarkable. IMPRESSION IMPRESSION: No acute radiographic abnormality. Therapy Site Coordinator: [facility] Transcribe Date/Time: May 02 2025 5:24P Dictated by : MARYCRUZ TIJERINA MD This examination was interpreted and the report reviewed and electronically signed by: MARYCRUZ TIJERINA MD on May 02 2025 5:24PM EST [facility] Radiology Study observation (narrative) [facility] XR Chest PA and LateralOrder ed By: [facility] Provider on 05-02-2025 [facility] cCP IgG SerPl-aCncon 025 Cyclic citrullinated peptide IgG Qn <15 Normal <20 [facility] Comment on above: Order Comment: Speci men Type: BLOOD SPECIMENOrdering Facility: [facility] Address: [address] [place] [address] Performed By: #### 3 3935-8 ####[facility] LABCLIA [id number] [place] [address] [place] Basic Metabolic Profile (BMP )on 04-26-2025 BUN/CRE 22.8 RATIO High 10-20 [facility] Comment on above: Performed By: #### L 501.5200, L500.2500, L100.0100 #### [facility] [address] [place], [address] ECRCL 125.10 ml/min Normal 50-250 [facility] Comment on above: Performed By: #### L 501.5200, L500.2500, L100.0100 #### [facility] [address] [place], [address] GAP 12 Normal 5-15 [facility] Comment on above: Performed By: #### L 501.5200, L500.2500, L100.0100 #### [facility] [address] [place], [address] Potassium [Moles/Vol] 4.1 mmol/L Normal 3.3-5.1 [facility] Comment on above: Performed By: #### L 501.5200, L500.2500, L100.0100 #### [facility] [address] [place], [address] Carbon dioxide, total [Moles /volume] in Central venous bloodOrdered By: Ankit Malloy on 04-26-2025 CO2 [Moles/Vol] 20.7 mmol/L Low 21.0-32.0 [facility] Comment on above: Performed By: #### L 501.5200, L500.2500, L100.0100 #### [facility] [address] [place], [address] Chloride assayOrdered By: Julianne Malloy on 04-26-2025 Chloride [Moles/Vol] 102 mmol/L Normal 98-108 [facility] Comment on above: Performed By: #### L 501.5200, L500.2500, L100.0100 #### [facility] [address] [place], [address] Emergency Department Summary on 04-26-2025 Emergency Department Summary [facility] Medical Records Department [address] [place] [address] Emergency Department Summary 04/26/25 MR#: [id number] Acct: [id number] Name: SEGUNDO QUEZADA Rep #: [id number] : 1980 44 From: Ankit Malloy DO PCP: JARED SCHILLING Status:DEP ER Location: ED HPI History of Present Illness Chief Complaint: General Illness Informant: patient and friend Narrative Narrative: Patient is a 44-year-old male who identifies as female with history of hypothyroidism anxiety and depression. Patient states that she is felt upper back pain and describes this as a lightening/burning sensation. She states that there has been no recent trauma. She denies any excessive activity. She denies any excessive bouts of nausea vomiting or diarrhea. However the symptoms have been recurrent and secondary to this she presents for evaluation [facility] Medical History Hypothyroidism Anxiety Depression Home Medications ???Medication ???Instructions ???Recorded ???Last Taken ???Type buspirone 10 mg tablet 10 mg PO TID 02/05/24 Unknown Hist ory estradiol 2 mg tablet 2 mg PO TID 02/05/24 Unknown Histo ry finasteride 1 mg tablet 1 mg PO DAILY 02/05/24 Unknown His tory fluvoxamine 100 mg tablet 100 mg PO QHS 02/05/24 Unknown His tory levothyroxine 25 mcg tablet 25 mcg PO DAILY 02/05/24 Unknown H istory lorazepam 0.5 mg tablet 0.5 mg PO DAILY PRN anxiety Unknown History spironolactone 50 mg tablet 50 mg PO Q12H 02/05/24 Unknown His tory trazodone 50 mg tablet 50 mg PO QHS PRN PRN insomnia 01/12 03/05 Unknown History phentermine 37.5 mg tablet 37.5 mg PO DAILY 07/24/24 Unknown History lorazepam 0.5 mg tablet 0.5 mg PO DAILY PRN anxiety #5 tab s 10/05/24 Unknown Rx methocarbamol 500 mg tablet 1,000 mg (2 x 500 mg) PO 4X/DAY Unknown Rx PRN Muscle pain/spasm #56 tabs Allergy/AdvReac Type Severity Reaction Status Date / Time green tea Allergy Chest Verified 04/25/25 19:16 tightness Social History household members: family housing: house Smoking Status: Former smoker ROS ROS ED Constitutional Constitutional ED: Denies chills or fever(s) ENT ENT ED: Denies sore throat Cardiovascular Cardiovascular: Denies chest pain Respiratory/Chest Respiratory/Chest: Denies cough or dyspnea Gastrointestinal Gastrointestinal: Denies abdominal pain, diarrhea, nausea or vomiting Genitourinary Genitourinary ED: Denies dysuria Musculoskeletal Musculoskeletal: Reports back pain and neck pain Integumentary Denies rash Neurologic Neurologic: Reports headache(s), paresthesias and weakness Hematologic/Lymphatic Hematologic/Lymphatic : Denies easy bleeding or easy bruising EXAM Physical Exam Const Vital Signs: 04/25/25 19:14 04/25/25 23:22 Temperature 98.3 F Temperature Source Oral Pulse Rate 73 86 Respiratory Rate 18 19 H Blood Pressure 114/85 H 112/89 H Blood Pressure Mean 94 96 Pulse Ox 98 100 Oxygen Delivery Method Room Air Room Air Positive well nourished and well developed General Appearance ED: well developed; Negative for pallor HEENT HEENT Narrative: Normocephalic atraumatic Eyes PERRL and EOMs intact bilaterally General Eye ED: Negative for scleral icterus Neck Neck Narrative: No bony deformity or step-off of the cervical spine no midline tenderness to palpation There is bilateral paracervical tension and spasm noted that worsens with sidebending and rotation Negative Spurling sign bilaterally No overlying soft tissue changes to suggest trauma or infection Resp normal respiratory effort and clear to auscultation bilaterally Cardio regular rate and regular rhythm Rate: other Other Details: Heart is regular rate and rhythm without murmurs rubs or gallop Radial and carotid pulses are equal and symmetric GI normal to inspection, nondistended, normoactive bowel sounds, non-tender, non-distended and no masses Auscultation: normoactive bowel sounds Palpation: soft Back/Spine Back/Spine Narrative: No bony deformity or step-off of the thoracic or lumbar spine no midline tenderness to palpation Extremity normal to inspection Extremity Narrative: No asymmetric edema no pitting edema negative Homans' sign bilaterally Neuro oriented x3, CN's II-XII intact bilaterally and no sensory deficits noted Sensorium / Orientation: alert Motor Exam: strength 5/5 throughout Psych Mood Affect: anxious Skin no rashes or lesions noted and no wounds General Skin Exam: Negative for jaundice or pallor MDM MDM MDM Narrative Medical decision making narrative: Patient arrived to the ER with stable vitals. Patient had multiple complaints such as neck b (more content not included)... Normal [facility] Glomerular filtration rate ( GFR) estimation/1.73 sq m using serum, plasma, or whole bOrdered By: Ankit Malloy on 04-26-2025 GFR/1.73 sq M.predicted among non-blacks MDRD (S/P/Bld) [Vol rate/Area] 118 mL/min/{1.73_m2} Normal >60 [facility] Comment on above: mL/min/1.73m2 CKD-EP I Creatinine Equation (2020) Result Comment: mL/m in/1.73m2 CKD-EPI Creatinine Equation (2020) Performed By: #### L 501.5200, L500.2500, L100.0100 #### [facility] [address] [place], [address] Magnesiumon 04-26-2025 Magnesium [Mass/Vol] 2.0 mg/dL Normal 1.5-2.2 [facility] Comment on above: Performed By: #### L 501.5200, L500.2500, L100.0100 #### [facility] [address] [place], [address] Serum creatinine measurement (mass/volume)Ordered By: Ankit Malloy on 04-26-2025 Creatinine [Mass/Vol] 0.68 mg/dL Low 0.70-1.20 [facility] Comment on above: Performed By: #### L 501.5200, L500.2500, L100.0100 #### [facility] [address] [place], [address] Serum glucose measurement (m ass/volume)Ordered By: Ankit Malloy on 04-26-2025 Glucose [Mass/Vol] 85 mg/dL Normal 70-99 [facility] Comment on above: Performed By: #### L 501.5200, L500.2500, L100.0100 #### [facility] [address] [place], [address] Serum or plasma calcium starr urement (mass/volume)Ordered By: Ankit Malloy on 04-26-2025 Calcium [Mass/Vol] 9.0 mg/dL Normal 7.6-11.0 [facility] Comment on above: Performed By: #### L 501.5200, L500.2500, L100.0100 #### [facility] [address] [place], [address] Serum or plasma urea nitroge n measurement (mass/volume)Ordered By: Ankit Malloy on 04-26-2025 Urea nitrogen [Mass/Vol] 16 mg/dL Normal 4-19 [facility] Comment on above: Performed By: #### L 501.5200, L500.2500, L100.0100 #### [facility] [address] [place], [address] Sodium levelOrdered By: Omar Malloy on 04-26-2025 Sodium [Moles/Vol] 135 mmol/L Normal 133-145 [facility] Comment on above: Performed By: #### L 501.5200, L500.2500, L100.0100 #### [facility] [address] [place], [address] Absolute lymphocyte countOrd ered By: Ankit Malloy on 04-25-2025 Lymphocytes Auto (Unsp spec) [#/Vol] 2.75 10*3/uL 0.83-4.51 [facility] Absolute neutrophil countOrd ered By: Ankit Malloy on 04-25-2025 Neutrophils (Bld) [#/Vol] 7.2 10*3/uL 2.0-7.7 [facility] Anion gap in Serum or Plasma Ordered By: Ankit Malloy on 04-25-2025 Anion gap [Moles/Vol] 12 mmol/L 5-15 [facility] Automated blood erythrocyte countOrdered By: Ankit Malloy on 04-25-2025 RBC (Bld) [#/Vol] 4.20 10*6/uL Low 4.6-6.2 [facility] Comment on above: Performed By: #### L 501.5200, L500.2500, L100.0100 #### [facility] [address] [place], [address] Automated blood hematocrit ( percentage)Ordered By: Ankit Malloy on 04-25-2025 Hematocrit (Bld) [Volume fraction] 38.1 % Low 40-54 [facility] Comment on above: Performed By: #### L 501.5200, L500.2500, L100.0100 #### [facility] [address] [place], [address] Automated lymphocyte count a s percentage of total leukocytesOrdered By: Ankit Malloy on 04-25-2025 Lymphocytes/100 WBC Auto (Unsp spec) 26.1 % 19-41 [facility] BUN/creatinine ratioOrdered By: Ankit Malloy on 04-25-2025 Urea nitrogen/Creatinine [Mass ratio] 22.8 mg/mg High 10-20 [facility] Basophil percentageOrdered B y: Ankit Malloy on 04-25-2025 Basophils/100 WBC (Bld) 0.4 % Normal 0-1 [facility] Comment on above: Performed By: #### L 501.5200, L500.2500, L100.0100 #### [facility] [address] [place], [address] Brain/Head without Contrasto n 04-25-2025 Brain/Head without Contrast [facility] Imaging Services [address] [place] [address] Brain/Head without Contrast MR#: [id number] Acct: [id number] Name: SEGUNDO QUEZADA Jory Rep #: [id number] : 1980 M 44 From: Hollis Watts MD PCP: JARED SCHILLING Status: REG ER Study: Brain/Head without Contrast Date of Exam: 04/12 02/04 Exam# [id number] Ordering Dr: Ankit Malloy DO PROCEDURE: BRAIN/HEAD WITHOUT CONTRAST 04/25/2025 REASON FOR EXAM: HEADACHE TECHNIQUE: BRAIN/HEAD WITHOUT CONTRAST Coronal and Sagittal reconstruction series were provided. One or more dose reduction techniques were used (e.g., Automated exposure control, adjustment of the mA and/or kV according to patient size, use of iterative reconstruction technique. RADIATION DOSE SUMMARY: CTDlvol: 44.99 mGy DLP: 812.98 mGycm COMPARISON: 02/05/2024. FINDINGS: The ventricles are normal in size and midline in position. No evidence of acute hemorrhage or infarction. No extra-axial blood or fluid collections. The paranasal sinuses and mastoid air cells are clear. The calvarial vault and skull base are intact. CT/Brain/Head without Contrast IMPRESSION: No acute intracranial abnormalities. Reading Location: [place] [address] CC: JARED SCHILLING; Ankit Malloy DO Therapy Site Coordinator: Signed Normal [facility] CBC W/Diff, Automatedon 04-12 Absolute Lymph 2.75 X10 3/uL Normal 0.83-4.51 [facility] Comment on above: Performed By: #### L 501.5200, L500.2500, L100.0100 #### [facility] [address] [facility] [place], [address] Absolute Neut 7.2 X10 3/uL Normal 2.0-7.7 [facility] Comment on above: Performed By: #### L 501.5200, L500.2500, L100.0100 #### [facility] [address] [place], [address] IG% 0.400 Normal 0.0-0.9 [facility] Comment on above: Result Comment: IG% - Immature Granulocytes (promyelocytes, myelocytes and metamyelocytes) > 1% indicates that a LEFT SHIFT is Present. Performed By: #### L 501.5200, L500.2500, L100.0100 #### [facility] [address] [place], [address] Lymphocytes/100 WBC (Bld) 26.1 % Normal 19-41 [facility] Comment on above: Performed By: #### L 501.5200, L500.2500, L100.0100 #### [facility] [address] [place], [address] Nucleated RBC (Bld) [#/Vol] 0 10*3/uL Normal 0-5 [facility] Comment on above: Performed By: #### L 501.5200, L500.2500, L100.0100 #### [facility] [address] [place], [address] RDW SD 38.6 fl Normal 35.1-43.9 [facility] Comment on above: Performed By: #### L 501.5200, L500.2500, L100.0100 #### [facility] [address] [place], [address] CNOVon 04-25-2025 CNOV Office Visit ([facility]) SEGUNDO QUEZADA ([id number]) 1980 M T Date Time Provider Department 04/25/25 4:45 PM RAFAEL MOLINA During your visit today, we recorded the following information about you: Temperature Pulse Respiration Blood pressure 98.3 degrees 78/minute 18/minute 107/74 Weight 65.9 kg Rafael Molina MD 04/25/2025 5:14 PM Signed [facility] Saravia Jory Quezada is a 44 year old adult. Patient presents with: Fatigue: Burning neck pain radiating to front of head, fogginess, R side sinus pain, nausea, dizziness, light sensitive, Patient presents with not feeling well for 1 week. She has a headache which begins with a burning sensation the back of the neck and radiates around to the front of her head. She feels like there is something stuck in her right maxillary sinus which radiates into the teeth (status post sinus surgery on that side). She feels dizzy with spinning sensation, is stumbling when walking, has nausea and vomiting, photophobia, mild rhinorrhea, very fatigued, feels cold, all over body aches, and mottled skin. Denies diarrhea, cough, or sore throat. She had a rash on her forearm which she felt was poison jennifer and has improved. Has taken ibuprofen for symptoms. Home COVID test was negative. Denies history of similar headaches or recent travel. Fatigue Review of Systems Constitutional: Positive for malaise/fatigue. Objective BP 107/74 Pulse 78 Temp 36.8 ?C (98.3 ?F) Resp 18 Wt 65.9 kg (145 lb 4.5 oz) SpO2 99% BMI 23.45 kg/m? Physical Exam Constitutional: General: She is not in acute distress. Appearance: She is ill-appearing. HENT: Right Ear: Tympanic membrane and ear canal normal. Left Ear: Tympanic membrane and ear canal normal. Nose: No congestion or rhinorrhea. Right Sinus: No maxillary sinus tenderness or frontal sinus tenderness. Left Sinus: No maxillary sinus tenderness or frontal sinus tenderness. Mouth/Throat: Mouth: Mucous membranes are moist. Pharynx: No oropharyngeal exudate or posterior oropharyngeal erythema. Eyes: Extraocular Movements: Extraocular movements intact. Conjunctiva/sclera: Conjunctivae normal. Pupils: Pupils are equal, round, and reactive to light. Comments: Squinting with room lights Cardiovascular: Rate and Rhythm: Normal rate and regular rhythm. Heart sounds: No murmur heard. Pulmonary: Effort: No respiratory distress. Breath sounds: No wheezing, rhonchi or rales. Musculoskeletal: Cervical back: Neck supple. Lymphadenopathy: Cervical: No cervical adenopathy. Skin: Comments: Faint healed 6 cm area left forearm where dermatitis had been. Mild mottling of hands. Neurological: Mental Status: She is alert. Cranial Nerves: No cranial nerve deficit. Motor: No weakness. Gait: Gait normal. Deep Tendon Reflexes: Reflexes normal. {ASSESSMENT/PLAN: 1. Headache, unspecified headache type - ICD9: 784.0, ICD10: R51.9 (primary diagnosis) 2. Vertigo - ICD9: 780.4, ICD10: R42 3. Nausea and vomiting, unspecified vomiting type - ICD9: 787.01, ICD10: R11.2 4. Photophobia - ICD9: 368.13, ICD10: H53.149 Who onset of vertigo and photophobia associated with atypical headache and illness symptoms. Patient referred to the emergency room for further evaluation to rule out serious causes including meningitis. She is not certain if she will go to the [place] ER or a [facility] ED Rafael Molina MD History and Record Review Systemic symptoms present included: Fatigue, body aches, chills Differential Diagnoses - Acute viral illness - Meningitis - Tickborne illness - sinusitis - increased intracranial pressure Procedures Allergies As of Date: 04/25/2025 Noted Allergy Reaction GREEN TEA 01/24/2025 10 - Anaphylaxis SEASONAL ALLERGIES 01/24/2025 16 - Unknown Date Reviewed: 04/25/2025 Reviewed by: Erin Irizarry MA - Fully Assessed Reason for Visit: Fatigue [46] Cmt: Burning neck pain radiating to front of head, fogginess, R side sinus pain, nausea, dizziness, light sensitive, Primary Visit Diagnosis:Headache, unspecified headache type [R51.9] Other Visit Diagnoses:Vertigo [R42] Nausea and vomiting, unspecified vomiting type [R11.2] Photophobia [H53.149] Prescriptions as of 04/25/2025 - Phentermine HCl 37.5 mg tablet Take 1 tablet by mouth once daily for 90 days. - estradiol (ESTRACE) 2 mg tablet Take 1 tablet by mouth three times a day. - traZODone (DESYREL) 50 mg tablet Take 1 tablet by mouth at bedtime as needed. - busPIRone (BUSPAR) 10 mg tablet Take 1 tablet by mouth three times a day. - spironolactone (ALDACTONE) 50 mg tablet Take 1 tablet by mouth every 12 hours. - levothyroxine (SYNTHROID) 25 mcg tablet take 1 tablet by mouth once daily - finasteride (PROPECIA) 1 mg tablet take 1 tablet by mouth once daily - fluvoxaMINE (LUVOX) (more content not included)... Normal [facility] Eosinophil percentageOrdered By: Ankit Malloy on 04-25-2025 Eosinophils/100 WBC (Bld) 0.5 % Normal 0-5 [facility] Comment on above: Performed By: #### L 501.5200, L500.2500, L100.0100 #### [facility] [address] [place], [address] Erythrocyte distribution wid th ratioOrdered By: Ankit Malloy on 04-25-2025 Erythrocyte distribution width (RBC) [Ratio] 11.8 % Normal 11.6-14.6 [facility] Comment on above: Performed By: #### L 501.5200, L500.2500, L100.0100 #### [facility] [address] [place], [address] Erythrocyte distribution wid th standard deviationOrdered By: Ankit Malloy on 04-25-2025 Erythrocyte distribution width (RBC) [Ratio] 38.6 fl 35.1-43.9 [facility] Hemoglobin measurementOrdere d By: Ankit Malloy on 04-25-2025 Hemoglobin (Bld) [Mass/Vol] 13.5 g/dL Normal 13.0-16.5 [facility] Comment on above: Performed By: #### L 501.5200, L500.2500, L100.0100 #### [facility] [address] [place], [address] Immature granulocytes/100 WB C Auto (Bld)Ordered By: Ankit Malloy on 04-25-2025 Immature granulocytes/100 WBC (Bld) 0.400 % 0.0-0.9 [facility] Comment on above: IG% - Immature Granu locytes (promyelocytes, myelocytes and metamyelocytes) > 1% indicates that a LEFT SHIFT is Present. MCV (mean corpuscular volume ) determinationOrdered By: Ankit Malloy on 04-25-2025 MCV (RBC) [Entitic vol] 90.7 fL Normal 80-94 [facility] Comment on above: Performed By: #### L 501.5200, L500.2500, L100.0100 #### [facility] [address] [place], [address] Magnesium measurement (mass/ volume)Ordered By: Ankit Malloy on 04-25-2025 Magnesium (Unsp spec) [Mass/Vol] 2.0 mg/dL 1.5-2.2 [facility] Mean corpuscular hemoglobin (MCH) determinationOrdered By: Ankit Malloy on 04-25-2025 MCH (RBC) [Entitic mass] 32.1 pg High 27.0-32.0 [facility] Comment on above: Performed By: #### L 501.5200, L500.2500, L100.0100 #### [facility] [address] [place], [address] Mean corpuscular hemoglobin concentration (MCHC) determinationOrdered By: Ankit Malloy on 04-25-2025 MCHC (RBC) [Mass/Vol] 35.4 g/dL Normal 32-36 [facility] Comment on above: Performed By: #### L 501.5200, L500.2500, L100.0100 #### [facility] [address] [place], [address] Mean platelet volume determi nationOrdered By: Ankit Malloy on 04-25-2025 Platelet mean volume (Bld) [Entitic vol] 9.6 fL Normal 6.2-12.0 [facility] Comment on above: Performed By: #### L 501.5200, L500.2500, L100.0100 #### [facility] [address] [place], [address] Monocyte percentageOrdered B y: Ankit Malloy on 04-25-2025 Monocytes/100 WBC (Bld) 4.6 % Normal 0-10 [facility] Comment on above: Performed By: #### L 501.5200, L500.2500, L100.0100 #### [facility] [address] [place], [address] Neutrophil percentageOrdered By: Ankit Malloy on 04-25-2025 Neutrophils/100 WBC (Bld) 68.0 % Normal 47-70 [facility] Comment on above: Performed By: #### L 501.5200, L500.2500, L100.0100 #### [facility] [address] [place], [address] Nucleated red blood cell per centageOrdered By: Ankit Malloy on 04-25-2025 Nucleated RBC/100 WBC (Bld) [Ratio] 0 % 0-5 [facility] Platelet countOrdered By: Julianne Malloy on 04-25-2025 Platelets (Bld) [#/Vol] 148 10*3/uL Low 150-450 [facility] Comment on above: Performed By: #### L 501.5200, L500.2500, L100.0100 #### [facility] [address] [place], [address] Potassium measurement (mass/ volume)Ordered By: Ankit Malloy on 04-25-2025 Potassium (Unsp spec) [Mass/Vol] 4.1 mmol/L 3.3-5.1 [facility] White blood cell (WBC) count Ordered By: Ankit Malloy on 04-25-2025 WBC (Bld) [#/Vol] 10.5 10*3/uL Normal 4.4-11.0 [facility] Comment on above: Performed By: #### L 501.5200, L500.2500, L100.0100 #### [facility] [address] [place], [address] CNPMitzi 04-14-2025 KALINA Telephone (INTLKB) SEGUNDO QUEZADA ([id number]) 1980 M T Date Time Provider Department 04/14/25 JARED SCHILLING During your visit today, we recorded the following information about you: Allergies As of Date: 04/14/2025 Noted Allergy Reaction GREEN TEA 01/24/2025 10 - Anaphylaxis SEASONAL ALLERGIES 01/24/2025 16 - Unknown Date Reviewed: 04/05/2025 Reviewed by: Alonso Siu APRN.[employer]OT AMB[employer]ADOR - Fully Assessed Prescriptions as of 04/14/2025 - Phentermine HCl 37.5 mg tablet Take 1 tablet by mouth once daily for 90 days. - estradiol (ESTRACE) 2 mg tablet take 1 tablet by mouth three times a day - traZODone (DESYREL) 50 mg tablet Take 1 tablet by mouth at bedtime as needed. - busPIRone (BUSPAR) 10 mg tablet Take 1 tablet by mouth three times a day. - spironolactone (ALDACTONE) 50 mg tablet Take 1 tablet by mouth every 12 hours. - levothyroxine (SYNTHROID) 25 mcg tablet take 1 tablet by mouth once daily - finasteride (PROPECIA) 1 mg tablet take 1 tablet by mouth once daily - fluvoxaMINE (LUVOX) 100 mg tablet take 1 tablet by mouth every morning - famotidine (PEPCID) 20 mg tablet take 1 tablet by mouth twice a day if needed - MULTIVITAMIN/IRON/FOL IC ACID (DAILY MULTI ORAL) Take 1 tablet by mouth once daily. Problem List As Of Date 04/14/2025 Noted Resolved Cellulitis and abscess of unspecified site [L03*02/13/2009 08/10/2019 History of 2019 novel coronavirus disease (COVI*11/10/2020 Drug reaction [T50.905A] 11/10/2020 04/12/2022 Gender dysphoria [F64.9] 07/17/2021 Obesity [E66.9] 07/17/2021 Former smoker [Z87.891] 07/17/2021 Concern about skin disease without diagnosis [Z*09/04/2021 Nasal valve collapse [J34.829] 04/12/2022 12/23/2023 Nasal septal deviation [J34.2] 04/12/2022 12/23/2023 Hypothyroidism [E03.9] Anxiety and depression [F41.9, F32.A] Dyspepsia [R10.13] 04/22/2022 Insomnia [G47.00] 01/13/2023 Recurrent UTI [N39.0] 05/05/2023 Pilonidal cyst with abscess [L05.01] 05/22/2023 12/23/2023 Diagnosed: 05/22/2023 Sinus headache [R51.9] 01/13/2023 12/23/2023 Diagnosed: 05/22/2023 Anal or rectal pain [K62.89] 06/26/2023 12/23/2023 Encounter Status:Closed by KRISHNA ROMERO on 04/14/25 Normal [facility] Basic metabolic 2000 panelon 01-24-2025 Anion gap [Moles/Vol] 11 mmol/L 8 - 15 mmol/L [facility] Calcium [Mass/Vol] 9.2 mg/dL 8.5 - 10. 2 mg/dL [facility] Chloride [Moles/Vol] 100 mmol/L 98 - 10 7 mmol/L [facility] CO2 [Moles/Vol] 26 mmol/L 22 - 30 mmol/L [facility] Creatinine [Mass/Vol] 0.73 mg/dL 0.73 - 1.22 mg/dL [facility] GFR/1.73 sq M.predicted among non-blacks MDRD (S/P/Bld) [Vol rate/Area] 115 mL/min/{1.73_m2} - PINF [facility] Comment on above: Estimated Glomerular Filtration Rate (eGFR) is calculated using the 2020 CKD-EPI creatinine equation. This equation utilizes serum creatinine, sex, and age as parameters. The creatinine assay has traceable calibration to isotope dilution-mass spectrometry. Refer to KDIGO guidelines for clinical interpretation. In patients with unstable renal function, e.g. those with acute kidney injury, the eGFR may not accurately reflect actual GFR. Glucose [Mass/Vol] 92 mg/dL 74 - 99 mg/dL [facility] Comment on above: The [place] Diab[employer] Association (ADA) provides guidance for cutoff values for fasting glucose and random glucose. The ADA defines fasting as no caloric intake for at least 8 hours. Fasting plasma glucose results between 100 to 125 mg/dL indicate increased risk for diabetes (prediabetes). Fasting plasma glucose results greater than or equal to 126 mg/dL meet the criteria for diagnosis of diabetes. In the absence of unequivocal hyperglycemia, results should be confirmed by repeat testing. In a patient with classic symptoms of hyperglycemia or hyperglycemic crisis, random plasma glucose results greater than or equal to 200 mg/dL meet the criteria for diagnosis of diabetes. Reference: Standards of Medical Care in Diabetes 2016, [place] Diabetes Association. Diabetes Care. 2016.39(Suppl 1). Interpretation and review of laboratory results Normal [facility] Potassium [Moles/Vol] 4.1 mmol/L 3.7 - 5.1 mmol/L [facility] Sodium [Moles/Vol] 137 mmol/L 136 - 144 mmol/L [facility] Urea nitrogen [Mass/Vol] 17 mg/dL 9 - 24 mg/d L [facility] Anion gap [Moles/Vol] 11 mmol/L Normal 8-15 [facility] Comment on above: Order Comment: Speci men Type: BLOOD SPECIMENOrdering Facility: [facility] Address: [address] [place] [address] Performed By: #### 3 016-3, 36649-5 ####[facility] LWIA [id number] [place] [address] [place] Calcium [Mass/Vol] 9.2 mg/dL Normal 8.5-10.2 [facility] Comment on above: Order Comment: Landeni monty Type: BLOOD SPECIMENOrdering Facility: [facility] Address: [address] [place] [address] Performed By: #### 3 016-3, 74620-0 ####[facility] LWCLIA [id number] [place] [id number] [place] Chloride [Moles/Vol] 100 mmol/L Normal 98-107 [facility] Comment on above: Order Comment: Landeni men Type: BLOOD SPECIMENOrdering Facility: [facility] Address: [address] [place] [address] Performed By: #### 3 016-3, 26425-0 ####[facility] LWCLIA [id number] [place] [id number] [place] CO2 [Moles/Vol] 26 mmol/L Normal 22-30 [facility] Comment on above: Order Comment: Speci men Type: BLOOD SPECIMENOrdering Facility: [facility] Address: [address] [place] [address] Performed By: #### 3 016-3, 99316-9 ####[facility] LWCLIA [id number] [place] [id number] [place] Creatinine [Mass/Vol] 0.73 mg/dL Normal 0.73-1.22 [facility] Comment on above: Order Comment: Speci men Type: BLOOD SPECIMENOrdering Facility: [facility] Address: [address] [place] [address] Performed By: #### 3 016-3, 38334-5 ####[facility] LWCLIA [id number] [address] Creatinine and Glomerular filtration rate.predicted panel (S/P/Bld) 115 mL/min/1.73m??? Normal >=60 [facility] Comment on above: Order Comment: Speci men Type: BLOOD SPECIMENOrdering Facility: [facility] Address: [address] [place] [address] Result Comment: Melita mated Glomerular Filtration Rate (eGFR) is calculated using the 2020 CKD-EPI creatinine equation. This equation utilizes serum creatinine, sex, and age as parameters. The creatinine assay has traceable calibration to isotope dilution-mass spectrometry. Refer to KDIGO guidelines for clinical interpretation. In patients with unstable renal function, e.g. those with acute kidney injury, the eGFR may not accurately reflect actual GFR. Performed By: #### 3 016-3, 08869-4 ####[facility] LWCLIA [id number] [place] [id number] [place] Glucose [Mass/Vol] 92 mg/dL Normal 74-99 [facility] Comment on above: Order Comment: Speci men Type: BLOOD SPECIMENOrdering Facility: [facility] Address: [address] [place], [place] [address] Result Comment: The [place] Diabetes Association (ADA) provides guidance for cutoff values for fasting glucose and random glucose. The ADA defines fasting as no caloric intake for at least 8 hours. Fasting plasma glucose results between 100 to 125 mg/dL indicate increased risk for diabetes (prediabetes). Fasting plasma glucose results greater than or equal to 126 mg/dL meet the criteria for diagnosis of diabetes. In the absence of unequivocal hyperglycemia, results should be confirmed by repeat testing. In a patient with classic symptoms of hyperglycemia or hyperglycemic crisis, random plasma glucose results greater than or equal to 200 mg/dL meet the criteria for diagnosis of diabetes. Reference: Standards of Medical Care in Diabetes 2016, [place] Diabetes Association. Diabetes Care. 2016.39(Suppl 1). Performed By: #### 3 016-3, 00347-8 ####[facility] LWCLIA [id number] [place] [address] [place] Potassium [Moles/Vol] 4.1 mmol/L Normal 3.7-5.1 [facility] Comment on above: Order Comment: Speci men Type: BLOOD SPECIMENOrdering Facility: [facility] Address: [address] [place] [address] Performed By: #### 3 016-3, 28248-2 ####[facility] LWCLIA [id number] [place] [address] [place] Sodium [Moles/Vol] 137 mmol/L Normal 136-144 [facility] Comment on above: Order Comment: Speci men Type: BLOOD SPECIMENOrdering Facility: [facility] Address: [address] [place] [address] Performed By: #### 3 016-3, 68736-4 ####[facility] LWCLIA [id number] [place] [id number] [place] Urea nitrogen [Mass/Vol] 17 mg/dL Normal 9-24 [facility] Comment on above: Order Comment: Speci men Type: BLOOD SPECIMENOrdering Facility: [facility] Address: [address] [place] [address] Performed By: #### 3 016-3, 29803-6 ####[facility] LWCLIA [id number] [place] [address] [place] CBC W Auto Differential pane l (Bld)on 01-24-2025 Basophils (Bld) [#/Vol] 0.04 10*3/uL [facility] Basophils/100 WBC (Bld) 0.5 % C [facility] Differential cell count method Nom (Bld) Auto [facility] Eosinophils (Bld) [#/Vol] 0.07 10*3/uL [facility] Eosinophils/100 WBC (Bld) 0.8 % [facility] Erythrocyte distribution width (RBC) [Ratio] 11.8 % 11.5 - 15.0 % [facility] Hematocrit (Bld) [Volume fraction] 39.1 % 39.0 - 51.0 % [facility] Hemoglobin (Bld) [Mass/Vol] 13.2 g/dL 13.0 - 17.0 g/dL [facility] Immature granulocytes (Bld) [#/Vol] [facility] Immature granulocytes/100 WBC (Bld) 0.2 % [facility] Interpretation and review of laboratory results Abnormal [facility] Lymphocytes (Bld) [#/Vol] 2.55 10*3/uL [facility] Lymphocytes/100 WBC (Bld) 29.9 % [facility] MCH (RBC) [Entitic mass] 31.7 pg 26. 0 - 34.0 pg [facility] MCHC (RBC) [Mass/Vol] 33.8 g/dL 30.5 - 36.0 g/dL [facility] MCV (RBC) [Entitic vol] 94 fL 80.0 - 100.0 fL [facility] Monocytes (Bld) [#/Vol] 0.54 10*3/uL [facility] Monocytes/100 WBC (Bld) 6.3 % C [facility] Neutrophils (Bld) [#/Vol] 5.3 10*3/uL [facility] Neutrophils/100 WBC (Bld) 62.3 % [facility] Nucleated RBC (Bld) [#/Vol] [facility] Nucleated RBC/100 WBC (Bld) [Ratio] 0 % /100 WBC [facility] Platelet mean volume (Bld) [Entitic vol] 9.6 fL 9.0 - 12.7 fL [facility] Platelets (Bld) [#/Vol] 189 10*3/uL [facility] RBC (Bld) [#/Vol] 4.16 10*6/uL Low 4.20 - 6.0 0 m/uL [facility] WBC (Bld) [#/Vol] 8.52 10*3/uL [facility] Basophils (Bld) [#/Vol] 0.04 10*3/uL Normal <0.11 [facility] Comment on above: Order Comment: Speci men Type: BLOOD SPECIMENOrdering Facility: [facility] Address: [address] [place] [address] Performed By: #### 5 7021-8 ####[facility] LWIA [id number] [place] [address] [place] Basophils/100 WBC (Bld) 0.5 % Normal C [facility] Comment on above: Order Comment: Speci men Type: BLOOD SPECIMENOrdering Facility: [facility] Address: [address] [place] [address] Performed By: #### 5 7021-8 ####[facility] LWIA [id number] [place] [address] [place] Differential cell count method Nom (Bld) Auto Normal [facility] Comment on above: Order Comment: Speci men Type: BLOOD SPECIMENOrdering Facility: [facility] Address: [address] [place] [address] Performed By: #### 5 7021-8 ####[facility] LWCLIA [id number] [place] [address] [place] Eosinophils (Bld) [#/Vol] 0.07 10*3/uL Normal <0.46 [facility] Comment on above: Order Comment: Speci men Type: BLOOD SPECIMENOrdering Facility: [facility] Address: [address] [place] [address] Performed By: #### 5 7021-8 ####[facility] LWCLIA [id number] [place] [id number] [place] Eosinophils/100 WBC (Bld) 0.8 % Normal [facility] Comment on above: Order Comment: Speci men Type: BLOOD SPECIMENOrdering Facility: [facility] Address: [address] [place] [address] Performed By: #### 5 7021-8 ####[facility] LWCLIA [id number] [place] [id number] [place] Erythrocyte distribution width (RBC) [Ratio] 11.8 % Normal 11.5-15.0 [facility] Comment on above: Order Comment: Speci men Type: BLOOD SPECIMENOrdering Facility: [facility] Address: [address] [place] [address] Performed By: #### 5 7021-8 ####[facility] LWCLIA [id number] [address] STATES OF [facility] Hematocrit (Bld) [Volume fraction] 39.1 % Normal 39.0-51.0 [facility] Comment on above: Order Comment: Speci men Type: BLOOD SPECIMENOrdering Facility: [facility] Address: [address] [place] [address] Performed By: #### 5 7021-8 ####[facility] LWCLIA [id number] [place] [id number] [place] Hemoglobin (Bld) [Mass/Vol] 13.2 g/dL Normal 13.0-17.0 [facility] Comment on above: Order Comment: Speci men Type: BLOOD SPECIMENOrdering Facility: [facility] Address: [address] [place] [address] Performed By: #### 5 7021-8 ####[facility] LWCLIA [id number] [place] [id number] [place] Immature granulocytes (Bld) [#/Vol] 10*3/uL Normal <0.10 [facility] Comment on above: Order Comment: Speci men Type: BLOOD SPECIMENOrdering Facility: [facility] Address: [address] [place] [address] Performed By: #### 5 7021-8 ####[facility] LWCLIA [id number] [place] [id number] [facility] Immature granulocytes/100 WBC (Bld) 0.2 % Normal [facility] Comment on above: Order Comment: Speci men Type: BLOOD SPECIMENOrdering Facility: [facility] Address: [address] [place] [address] Performed By: #### 5 7021-8 ####[facility] [id number] [place] [address] [place] Lymphocytes (Bld) [#/Vol] 2.55 10*3/uL Normal 1.00-4.00 [facility] Comment on above: Order Comment: Speci men Type: BLOOD SPECIMENOrdering Facility: [facility] Address: [address] [place] [address] Performed By: #### 5 7021-8 ####[facility] LWCLIA [id number] [place] [id number] [place] [facility] Lymphocytes/100 WBC (Bld) 29.9 % Normal [facility] Comment on above: Order Comment: Speci men Type: BLOOD SPECIMENOrdering Facility: [facility] Address: [address] [place] [address] Performed By: #### 5 7021-8 ####[facility] LWCLIA [id number] [place] [id number] [place] MCH (RBC) [Entitic mass] 31.7 pg Normal 26.0-34.0 [facility] Comment on above: Order Comment: Speci men Type: BLOOD SPECIMENOrdering Facility: [facility] Address: [address] [place] [address] Performed By: #### 5 7021-8 ####[facility] LWCLIA [id number] [place] [address] [place] MCHC (RBC) [Mass/Vol] 33.8 g/dL Normal 30.5-36.0 [facility] Comment on above: Order Comment: Speci men Type: BLOOD SPECIMENOrdering Facility: [facility] Address: [address] [place] [address] Performed By: #### 5 7021-8 ####[facility] LWIA [id number] [place] [address] [place] MCV (RBC) [Entitic vol] 94.0 fL Normal 80.0-100.0 [facility] Comment on above: Order Comment: Speci men Type: BLOOD SPECIMENOrdering Facility: [facility] Address: [address] [place] [address] Performed By: #### 5 7021-8 ####[facility] [id number] [place] [address] [place] Monocytes (Bld) [#/Vol] 0.54 10*3/uL Normal <0.87 [facility] Comment on above: Order Comment: Speci men Type: BLOOD SPECIMENOrdering Facility: [facility] Address: [address] [place] [address] Performed By: #### 5 7021-8 ####[facility] LWCLIA [id number] [place] [id number] [place] Monocytes/100 WBC (Bld) 6.3 % Normal C [facility] Comment on above: Order Comment: Speci men Type: BLOOD SPECIMENOrdering Facility: [facility] Address: [address] [place] [address] Performed By: #### 5 7021-8 ####[facility] LWCLIA [id number] [place] [id number] [place] Neutrophils (Bld) [#/Vol] 5.30 10*3/uL Normal 1.45-7.50 [facility] Comment on above: Order Comment: Speci men Type: BLOOD SPECIMENOrdering Facility: [facility] Address: [address] [place] [address] Performed By: #### 5 7021-8 ####[facility] LWCLIA [id number] [place] [id number] [place] [facility] Neutrophils/100 WBC (Bld) 62.3 % Normal [facility] Comment on above: Order Comment: Speci men Type: BLOOD SPECIMENOrdering Facility: [facility] Address: [address] [place] [address] Performed By: #### 5 7021-8 ####[facility] LWCLIA [id number] [place] [address] [place] Nucleated RBC (Bld) [#/Vol] 10*3/uL Normal <0.01 [facility] Comment on above: Order Comment: Speci men Type: BLOOD SPECIMENOrdering Facility: [facility] Address: [address] [place] [address] Performed By: #### 5 7021-8 ####[facility] LWCLIA [id number] [address] STATES [facility] Nucleated RBC/100 WBC (Bld) [Ratio] 0.0 /100 WBC Normal [facility] Comment on above: Order Comment: Speci men Type: BLOOD SPECIMENOrdering Facility: [facility] Address: [address] [place] [address] Performed By: #### 5 7021-8 ####[facility] LWCLIA [id number] [place] [id number] [place] Platelet mean volume (Bld) [Entitic vol] 9.6 fL Normal 9.0-12.7 [facility] Comment on above: Order Comment: Speci men Type: BLOOD SPECIMENOrdering Facility: [facility] Address: [address] [place] [address] Performed By: #### 5 7021-8 ####[facility] LWCLIA [id number] [place] [id number] [place] Platelets (Bld) [#/Vol] 189 10*3/uL Normal 150-400 [facility] Comment on above: Order Comment: Speci men Type: BLOOD SPECIMENOrdering Facility: [facility] Address: [address] [place] [address] Performed By: #### 5 7021-8 ####[facility] LWCLIA [id number] [place] [id number] [facility] [place] RBC (Bld) [#/Vol] 4.16 10*6/uL Low 4.20-6.00 [facility] Comment on above: Order Comment: Speci men Type: BLOOD SPECIMENOrdering Facility: [facility] Address: [address] [place] [address] Performed By: #### 5 7021-8 ####[facility] LWCLIA [id number] [place] [id number] [facility] WBC (Bld) [#/Vol] 8.52 10*3/uL Normal 3.70-11.00 [facility] Comment on above: Order Comment: Speci men Type: BLOOD SPECIMENOrdering Facility: [facility] Address: [address] [place] [address] Performed By: #### 5 7021-8 ####[facility] LWCLIA [id number] [place] [id number] [facility] CNOVon 01-24-2025 CNOV Office Visit (INTLKB ) SEGUNDO QUEZADA ([id number]) 1980 M T Date Time Provider Department 01/24/25 2:40 PM RICKIE CORNELL INTLKB During your visit today, we recorded the following information about you: Pulse Respiration Blood pressure Weight 84/minute 16/minute 119/50 64.9 kg Rickie Cornell PA-C 01/24/2025 4:18 PM Signed ESTABLISHED PATIENT Chief Complaint: Shabbir Quezada is a 44 year old adult who presents today with her , Ameena, for a follow up visit. Subjective HPI PCP: Jared Schilling MD Last VV: 01/21/[address] Schilling Last OV: 07/16/[address] Schilling PMH: sinus headaches, recurrent UTI, hypothyroidism, gender dysphoria, anxiety, MDD #Gender Dysphoria Current Regiment: 2 mg estradiol TID and spironolactone 50 mg BID Previously on injectables - stopped the injectables because the levels dropped and felt terrible when it was time for the next injection Stopped injectables at last VV in 01/2024 Has been on GAHT since 2019 Body changes: stable Feels like over the last year she feels like the feminization effects have lessened Specifically in the face - states eyes seem a bit different, skin is not a soft, feels like the jaw more box shaped Has intentionally lost a lot of weight - lost about 70 lbs Reports having a lot of lose skin Did have electrolysis on the face - reports a lot of pain with that procedure Has not obtained labs prior to today's visit Denies obvious negative side effects Denies CP, SOB, heart palpitations, headaches, and leg swelling Would be willing to talk to a surgeon about bottom surgery options Has 1 MANDO on file Does follow with a new psychiatrist - reports depression has gotten worse Reports concern over current political climate Stress has increased Sts she was advised to stay home Reports getting misgendered more and living in more conservative area No SI/HI/AH/VH Has been having bad night sweats - states she is drenching through clothes for the last month Has been on and off Gender Affirmation Care Goals Bottom surgery at some point - has met with someone to discuss laser hair removal but has not met with a surgeon yet Would like loose skin removed from the face #Hypothyroidism Currently on levothyroxine 25 mcg daily No issues with medications #Allergies Reports having continued allergic reactions that occur randomly States the other night was putting on a ring and felt like her throat was closing Reports a lot of itching and some times has hand and feet swelling States hands and feet get warm and then start to itch No known triggers Taking benadryl and has OTC allergy inhaler that helps Knows a lot of scented things trigger Denies hives or other rashes when these symptoms occur Also reports lip swelling #[facility] Due for lipid screening PAST MEDICAL HISTORY Diagnosis Date Chronic depressive personality disorder Former smoker 07/17/2021 Gender dysphoria 07/17/2021 Generalized anxiety disorder Hypothyroidism Obesity 07/17/2021 Tobacco use disorder PAST SURGICAL HISTORY Procedure Laterality Date OSTEOTOMY - BODY OF MANDIBLE 07/2021 with cheek augmentation Family History Problem Relation Age of Onset other (hepatitis) Mother other (ulcers) Father No Known Problems Maternal Grandmother Alzheimer's Disease Maternal Grandfather No Known Problems Paternal Grandmother No Known Problems Paternal Grandfather Allergies Daughter Anesthesia Problems No Family History Current Outpatient Medications Medication Sig Dispense Refill estradiol (ESTRACE) 2 mg tablet take 1 tablet by mouth three times a day 270 tablet 0 Phentermine HCl 37.5 mg tablet Take 1 tablet by mouth once daily for 90 days. 30 tablet 2 spironolactone (ALDACTONE) 50 mg tablet Take 1 tablet by mouth every 12 hours. 180 tablet 1 levothyroxine (SYNTHROID) 25 mcg tablet take 1 tablet by mouth once daily 180 tablet 3 traZODone (DESYREL) 50 mg tablet Take 1 tablet by mouth at bedtime as needed. 90 tablet 1 busPIRone (BUSPAR) 10 mg tablet Take 1 tablet by mouth three times a day. 90 tablet 5 finasteride (PROPECIA) 1 mg tablet take 1 tablet by mouth once daily 90 tablet 3 fluvoxaMINE (LUVOX) 100 mg tablet take 1 tablet by mouth every morning 90 tablet 3 famotidine (PEPCID) 20 mg tablet take 1 tablet by mouth twice a day if needed 60 tablet 1 MULTIVITAMIN/IRON/FOL IC ACID (DAILY MULTI ORAL) Take 1 tablet by mouth once daily. No current facility-administered medications for this visit. ALLERGIES Allergen Reactions Green Tea Anaphylaxis Seasonal Allergies Unknown Social History Tobacco Use Smoking status: Former Current packs/day: 0.00 Average packs/day: 0.5 packs/day for 10.0 years (5.0 ttl pk-yrs) Types: Cigarettes Start date: 10/20/2006 Quit date: 10/20/2016 Years since quittin.2 Smokeless tobacco: Never Vaping Us (more content not included)... Normal [facility] ESTRADIOL-17B BLDon 01-25-20 25 E2 [Mass/Vol] 145 pg/mL [facility]stradiol [facility] 01-24 E2 [Mass/Vol] 145 pg/mL Normal [facility] Comment on above: Order Comment: Speci men Type: BLOOD SPECIMENOrdering Facility: [facility] Address: [address] [place] [address] Performed By: #### 3 024-7, 3053-6, 2986-8, 2243-4 ####[facility] LABCLIA [id number] [place] [address] [place] No Panel Informationon 01-24 Interpretation and review of laboratory results Normal [facility] T3on 01-24-2025 T3 [Mass/Vol] 124 ng/dL 79 - 165 ng/dL [facility] T3 [Mass/Vol] 124 ng/dL Normal 79-165 [facility] Comment on above: Order Comment: Speci men Type: BLOOD SPECIMENOrdering Facility: [facility] Address: [address] [place], [place] [address] Performed By: #### 3 024-7, 3053-6, 2986-8, 2242-4 ####[facility] LABCLIA [id number] [address] STATES [place] T4 FREE/FREE THYROXINEon Free T4 [Mass/Vol] 1.1 ng/dL 0.9 - 1.7 ng/dL [facility] T4 Free SerPl-mCncon 025 Free T4 [Mass/Vol] 1.1 ng/dL Normal 0.9-1.7 [facility] Comment on above: Order Comment: Speci men Type: BLOOD SPECIMENOrdering Facility: [facility] Address: [address] [place], [place] [address] Performed By: #### 3 024-7, 3053-6, 2986-8, 2243-4 ####[facility] LABCLIA [id number] [place] [id number] [place] THYROID STIMULATING HORMONEo n 01-24-2025 TSH Qn 3.52 m[IU]/L [facility] TSH Qnon 01-24-2025 Interpretation and review of laboratory results Normal [facility] TSH SerPl-aCncon 01-24-2025 TSH Qn 3.520 m[IU]/L Normal 0.270-4.200 [facility] Comment on above: Order Comment: Speci men Type: BLOOD SPECIMENOrdering Facility: [facility] Address: [address] [place] [address] Performed By: #### 3 016-3, 73516-9 ####[facility] LWCLIA [id number] [address] OF [place] Testost SerPl-mCncon 025 Testosterone [Mass/Vol] ng/dL Normal [facility] Comment on above: Order Comment: Speci men Type: BLOOD SPECIMENOrdering Facility: [facility] Address: [address] [place] [address] Result Comment: Resu lt rechecked. Performed By: #### 3 024-7, 3053-6, 2986-8, 2243-4 ####[facility] LABCLIA [id number] [address] STATES OF [facility] Emergency Department Summary on 10-05-2024 Emergency Department Summary [facility] Medical Records Department [address] [place] [address] Emergency Department Summary 10/05/24 MR#: [id number] Acct: [id number] Name: SEGUNDO QUEZADA Rep #: [id number] : 1980 44 From: Ken Garibay MD PCP: JARED SCHILLING Status:PRE ER Location: ED HPI HPI - Psych History of Present Illness Chief Complaint: Anxiety Informant: patient and friend Narrative Narrative: 44-year-old female, biologically male, presenting for anxiety/panic attack. States this has been going on intermittently over the past 2 or 3 days, no obvious trigger, no suicidal thoughts, but ran out of her lorazepam several days ago and because of the holidays unable to get a refill from her doctor. Normally she would take lorazepam either once a day or once every other day on average. Denies any recent illness or injury. [facility] Medical History Hypothyroidism Anxiety Depression Home Medications ???Medication ???Instructions ???Recorded ???Last Taken ???Type buspirone 10 mg tablet 10 mg PO TID 02/05/24 Unknown History estradiol 2 mg tablet 2 mg PO TID 02/05/24 Unknown History finasteride 1 mg tablet 1 mg PO DAILY 02/05/24 Unknown History fluvoxamine 100 mg tablet 100 mg PO QHS 02/05/24 Unknown History levothyroxine 25 mcg tablet 25 mcg PO DAILY 02/05/24 Unknown History lorazepam 0.5 mg tablet 0.5 mg PO DAILY PRN anxiety 02/05/24 Unknown History progesterone micronized 100 mg 100 mg PO BID 02/05/24 Unknown History capsule spironolactone 50 mg tablet 50 mg PO Q12H 02/05/24 Unknown History trazodone 50 mg tablet 50 mg PO QHS PRN PRN insomnia 02/05/24 Unknown History phentermine 37.5 mg tablet 37.5 mg PO DAILY 07/24/24 Unknown History tretinoin 0.025 % topical cream 1 applic topical QHS 07/24/24 Unknown History lorazepam 0.5 mg tablet 0.5 mg PO DAILY PRN anxiety #5 tabs 10/05/24 Unknown Rx Allergy/AdvReac Type Severity Reaction Status Date / Time green tea Allergy Chest Verified 10/05/24 10:18 tightness Social History household members: family housing: house Smoking Status: Former smoker ROS ROS ED Constitutional Constitutional ED: Denies chills or fever(s) Eyes Eyes: Denies blurry vision, change in vision or diplopia ENT ENT ED: Denies rhinorrhea or sore throat Cardiovascular Cardiovascular: Denies chest pain or palpitations Respiratory/Chest Respiratory/Chest: Denies cough or dyspnea Gastrointestinal Gastrointestinal: Denies abdominal pain, diarrhea, nausea or vomiting Genitourinary Genitourinary ED: Denies dysuria or hematuria Musculoskeletal Musculoskeletal: Denies back pain or neck pain Integumentary Denies abscess or rash Neurologic Neurologic: Reports headache(s); Denies paresthesias or weakness Psychiatric Psychiatric: Reports anxiety; Denies suicidal thoughts EXAM Physical Exam Const Vital Signs: 10/05/24 10:18 Temperature 97.9 F Temperature Source Oral Pulse Rate 75 Respiratory Rate 30 H Blood Pressure 114/91 H Blood Pressure Mean 98 Pulse Ox 100 Oxygen Delivery Method Room Air Positive well nourished and well developed General Appearance ED: well developed and NAD HEENT Reports moist mucous membranes normocephalic and atraumatic Eyes PERRL and EOMs intact bilaterally Neck full ROM and supple Resp normal respiratory effort and clear to auscultation bilaterally Resp Narrative: Hyperventilating. Clear. Cardio regular rate, regular rhythm and no murmurs GI non-tender and non-distended Auscultation: normoactive bowel sounds Palpation: soft Back/Spine no CVA tenderness General Back: other FROM Extremity normal to inspection General Extremety ED: Negative for edema, pulses abnormal or tenderness General Extremity: Negative for edema or pulses abnormal Neuro oriented x3, CN's II-XII intact bilaterally and no sensory deficits noted Sensorium / Orientation: awake and alert Motor Exam: strength 5/5 throughout Psych denies hallucinations, denies homicidal ideation and denies suicidal ideation Psych Narrative: Anxious, tearful/crying Skin no rashes or lesions noted and no wounds MDM MDM MDM Narrative Medical decision making narrative: I offered testing, I offered also lorazepam and a short prescription. She declines testing I think she just needs Ativan. Given a dose here along with some naproxen for her headache. Offered to discussion with a counselor if she was having suicidal thoughts, she states no she does not have suicidal thoughts and does not feel like she needs to talk to a counselor today. Discharge Plan Triage Chief Complaint: Anxiety ED Provider: Ken Garibay Dx/Rx/DC Orders Clinical Impression: A (more content not included)... Normal [facility] Basic Metabolic Profile (BMP )on 07-24-2024 BUN/CRE 25.5 RATIO High 08-01 [facility] Comment on above: Order Comment: 1Y Performed By: #### L 500.2500, L300.8000, L501.2450, L501.5425, L100.0100, L501.5200 ####[facility] [address] [place], [address] CA,Total 9.0 mg/dL Normal 8.5-10.1 [facility] Comment on above: Order Comment: 1Y Performed By: #### L 500.2500, L300.8000, L501.2450, L501.5425, L100.0100, L501.5200 ####[facility] [address] [place], [address] Chloride [Moles/Vol] 104 mmol/L Normal 98-107 [facility] Comment on above: Order Comment: 1Y Performed By: #### L 500.2500, L300.8000, L501.2450, L501.5425, L100.0100, L501.5200 ####[facility] [address] [place], [address] CO2 [Moles/Vol] 29.0 mmol/L Normal 21.0-32.0 [facility] Comment on above: Order Comment: 1Y Performed By: #### L 500.2500, L300.8000, L501.2450, L501.5425, L100.0100, L501.5200 ####[facility] [address] [place], [address] Creatinine [Mass/Vol] 0.82 mg/dL Normal 0.70-1.30 [facility] Comment on above: Order Comment: 1Y Result Comment: The validity of the calculated GFR GFRAA in patients over 70 years has not been determined. Clinical correlation is essential. Performed By: #### L 500.2500, L300.8000, L501.2450, L501.5425, L100.0100, L501.5200 ####[facility] [address] [place], [address] ECRCL 104.82 ml/min Normal [facility] Comment on above: Order Comment: 1Y Performed By: #### L 500.2500, L300.8000, L501.2450, L501.5425, L100.0100, L501.5200 ####[facility] [address] [place], [address] EST GFR - AA 131 mL/min Normal >60 [facility] Comment on above: Order Comment: 1Y Result Comment: Afri can [place] GFR Calc Performed By: #### L 500.2500, L300.8000, L501.2450, L501.5425, L100.0100, L501.5200 ####[facility] [address] [place], [address] GAP 6 Normal 5-15 [facility] Comment on above: Order Comment: 1Y Performed By: #### L 500.2500, L300.8000, L501.2450, L501.5425, L100.0100, L501.5200 ####[facility] [address] [place], [address] GFR/1.73 sq M.predicted among non-blacks MDRD (S/P/Bld) [Vol rate/Area] 108 mL/min/{1.73_m2} Normal >60 [facility] Comment on above: Order Comment: 1Y Result Comment: Non- GFR Calc Performed By: #### L 500.2500, L300.8000, L501.2450, L501.5425, L100.0100, L501.5200 ####[facility] [address] [place], [address] Glucose [Mass/Vol] 92 mg/dL Normal 74-106 [facility] Comment on above: Order Comment: 1Y Performed By: #### L 500.2500, L300.8000, L501.2450, L501.5425, L100.0100, L501.5200 ####[facility] [address] [place], [address] Potassium [Moles/Vol] 3.6 mmol/L Normal 3.5-5.1 [facility] Comment on above: Order Comment: 1Y Performed By: #### L 500.2500, L300.8000, L501.2450, L501.5425, L100.0100, L501.5200 ####[facility] [address] [place], [address] Sodium [Moles/Vol] 138 mmol/L Normal 136-145 [facility] Comment on above: Order Comment: 1Y Performed By: #### L 500.2500, L300.8000, L501.2450, L501.5425, L100.0100, L501.5200 ####[facility] [address] [place], [address] Urea nitrogen [Mass/Vol] 21 mg/dL High 7-18 [facility] Comment on above: Order Comment: 1Y Performed By: #### L 500.2500, L300.8000, L501.2450, L501.5425, L100.0100, L501.5200 ####[facility] [address] [place], [address] CBC W/Diff, Automatedon 07-13 Absolute Lymph 3.24 X10 3/uL Normal 0.83-4.51 [facility] Comment on above: Performed By: #### L 500.2500, L300.8000, L501.2450, L501.5425, L100.0100, L501.5200 #### [facility] [address] [place], [address] Absolute Neut 5.6 X10 3/uL Normal 2.0-7.7 [facility] Comment on above: Performed By: #### L 500.2500, L300.8000, L501.2450, L501.5425, L100.0100, L501.5200 #### [facility] [address] [place], [address] Basophils/100 WBC (Bld) 0.3 % Normal 0-1 [facility] Comment on above: Performed By: #### L 500.2500, L300.8000, L501.2450, L501.5425, L100.0100, L501.5200 #### [facility] [address] [place], [address] Eosinophils/100 WBC (Bld) 0.9 % Normal 0-5 [facility] Comment on above: Performed By: #### L 500.2500, L300.8000, L501.2450, L501.5425, L100.0100, L501.5200 #### [facility] [address] [place], [address] Erythrocyte distribution width (RBC) [Ratio] 11.8 % Normal 11.6-14.6 [facility] Comment on above: Performed By: #### L 500.2500, L300.8000, L501.2450, L501.5425, L100.0100, L501.5200 #### [facility] [address] [place], [address] Hematocrit (Bld) [Volume fraction] 37.5 % Low 40-54 [facility] Comment on above: Performed By: #### L 500.2500, L300.8000, L501.2450, L501.5425, L100.0100, L501.5200 #### [facility] [address] [place], [address] Hemoglobin (Bld) [Mass/Vol] 13.0 g/dL Normal 13.0-16.5 [facility] Comment on above: Performed By: #### L 500.2500, L300.8000, L501.2450, L501.5425, L100.0100, L501.5200 #### [facility] [address] [place], [address] IG% 0.200 Normal 0.0-0.9 [facility] Comment on above: Result Comment: IG% - Immature Granulocytes (promyelocytes, myelocytes and metamyelocytes) > 1% indicates that a LEFT SHIFT is Present. Performed By: #### L 500.2500, L300.8000, L501.2450, L501.5425, L100.0100, L501.5200 #### [facility] [address] [place], [address] Lymphocytes/100 WBC (Bld) 34.4 % Normal 19-41 [facility] Comment on above: Performed By: #### L 500.2500, L300.8000, L501.2450, L501.5425, L100.0100, L501.5200 #### [facility] [address] [place], [address] MCH (RBC) [Entitic mass] 32.0 pg Normal 27.0-32.0 [facility] Comment on above: Performed By: #### L 500.2500, L300.8000, L501.2450, L501.5425, L100.0100, L501.5200 #### [facility] [address] [place], [address] MCHC (RBC) [Mass/Vol] 34.7 g/dL Normal 32-36 [facility] Comment on above: Performed By: #### L 500.2500, L300.8000, L501.2450, L501.5425, L100.0100, L501.5200 #### [facility] [address] [place], [address] MCV (RBC) [Entitic vol] 92.4 fL Normal 80-94 [facility] Comment on above: Performed By: #### L 500.2500, L300.8000, L501.2450, L501.5425, L100.0100, L501.5200 #### [facility] [address] [place], [address] Monocytes/100 WBC (Bld) 5.2 % Normal 0-10 [facility] Comment on above: Performed By: #### L 500.2500, L300.8000, L501.2450, L501.5425, L100.0100, L501.5200 #### [facility] [address] [place], [address] Neutrophils/100 WBC (Bld) 59.0 % Normal 47-70 [facility] Comment on above: Performed By: #### L 500.2500, L300.8000, L501.2450, L501.5425, L100.0100, L501.5200 #### [facility] [address] [place], [address] Nucleated RBC (Bld) [#/Vol] 0 10*3/uL Normal 0-5 [facility] Comment on above: Performed By: #### L 500.2500, L300.8000, L501.2450, L501.5425, L100.0100, L501.5200 #### [facility] [address] [place], [address] Platelet mean volume (Bld) [Entitic vol] 10.0 fL Normal 6.2-12.0 [facility] Comment on above: Performed By: #### L 500.2500, L300.8000, L501.2450, L501.5425, L100.0100, L501.5200 #### [facility] [address] [place], [address] Platelets (Bld) [#/Vol] 182 10*3/uL Normal 150-450 [facility] Comment on above: Performed By: #### L 500.2500, L300.8000, L501.2450, L501.5425, L100.0100, L501.5200 #### [facility] [address] [place], [address] RBC (Bld) [#/Vol] 4.06 10*6/uL Low 4.6-6.2 [facility] Comment on above: Performed By: #### L 500.2500, L300.8000, L501.2450, L501.5425, L100.0100, L501.5200 #### [facility] [address] [place], [address] RDW SD 39.8 fl Normal 35.1-43.9 [facility] Comment on above: Performed By: #### L 500.2500, L300.8000, L501.2450, L501.5425, L100.0100, L501.5200 #### [facility] [address] [place], [address] WBC (Bld) [#/Vol] 9.4 10*3/uL Normal 4.4-11.0 [facility] Comment on above: Performed By: #### L 500.2500, L300.8000, L501.2450, L501.5425, L100.0100, L501.5200 #### [facility] [address] [place], [address] Chest 1 View (Portable)on Chest 1 View (Portable) [facility] [address] [place] [address] Chest 1 View (Portable) MR#: [id number] Acct: [id number] Name: SEGUNDO QUEZADA Rep #: [id number] : 1980 M 43 From: Baldev guadarrama MD PCP: JARED SCHILLING Status: REG ER Study: Chest 1 View (Portable) Date of Exam: 07/24/24 Exam# [id number] Ordering Dr: Alfa Puckett MD [id number] EXAM: XR CHEST, 1 VIEW CLINICAL INDICATION: chest pain TECHNIQUE: Frontal view of the chest. COMPARISON: Previous chest radiographs of 05/18/2024 and 02/05/2024. FINDINGS: LUNGS AND PLEURAL SPACES: Unremarkable. No consolidation or edema. No pneumothorax. No effusion. HEART: Unremarkable. Cardiac silhouette not enlarged. Normal pulmonary vasculature. MEDIASTINUM: Central airways and mediastinal contour are unremarkable. No mediastinal widening. Trachea is midline. BONES/JOINTS: Unremarkable. No acute fracture. SOFT TISSUES: Unremarkable. RAD/Chest 1 View (Portable) IMPRESSION: No significant interval change. No radiographic evidence of acute cardiopulmonary disease. Electronically Signed: Baldev Leung MD at 2:11 EDT , CC: Dr. Alfa Puckett MD; JARED SCHILLING Therapy Site Coordinator: Signed Normal [facility] D-Dimer Quantitative (DVT/PE )on 07-24-2024 D-DIMER QUANT 0.27 FEU/ug/m Normal 0.27-0.49 [facility] Comment on above: Result Comment: NORM AL D-Dimer level (<0.50) indicates no DVT or PE. Performed By: #### L 500.2500, L300.8000, L501.2450, L501.5425, L100.0100, L501.5200 ####[facility] [address] [place], [address] Emergency Department Summary on 07-24-2024 Emergency Department Summary [facility] Medical Records Department [address] [place] [address] Emergency Department Summary 07/24/24 MR#: [id number] Acct: [id number] Name: SEGUNDO QUEZADA Rep #: [id number] : 1980 43 From: Alfa Puckett MD PCP: JARED SCHILLING Status:REG ER Location: ED HPI History of Present Illness Chief Complaint: Chest Pain Narrative Narrative: 43-year-old presents with chest pain over the last few days. She has multiple complaints regarding this. She states over the last few days she felt like she was becoming ill. She developed chest pain that she describes as sharp, stabbing, dull, and also pressure. She has had low-grade fever over the last few days and urinary frequency but thought this was secondary to spironolactone. Additionally, she takes estradiol 3 times a day as she is transitioning. She feels nauseated. However, no vomiting. That started today. No recent illnesses/upper respiratory infections, no recent immunizations. [facility] Medical History Hypothyroidism Anxiety Depression Home Medications ???Medication ???Instructions ???Recorded ???Last Taken ???Type buspirone 10 mg tablet 10 mg PO TID 02/05/24 Unknown History estradiol 2 mg tablet 2 mg PO TID 02/05/24 Unknown History finasteride 1 mg tablet 1 mg PO DAILY 02/05/24 Unknown History fluvoxamine 100 mg tablet 100 mg PO QHS 02/05/24 Unknown History levothyroxine 25 mcg tablet 25 mcg PO DAILY 02/05/24 Unknown History lorazepam 0.5 mg tablet 0.5 mg PO DAILY PRN anxiety 02/05/24 Unknown History progesterone micronized 100 mg 100 mg PO BID 02/05/24 Unknown History capsule spironolactone 50 mg tablet 50 mg PO Q12H 02/05/24 Unknown History trazodone 50 mg tablet 50 mg PO QHS PRN PRN insomnia 02/05/24 Unknown History lorazepam 0.5 mg tablet 0.5 mg PO DAILY PRN anxiety #3 tabs 07/24/24 Unknown Rx phentermine 37.5 mg tablet 37.5 mg PO DAILY 07/24/24 Unknown History tretinoin 0.025 % topical cream 1 applic topical QHS 07/24/24 Unknown History Allergy/AdvReac Type Severity Reaction Status Date / Time green tea Allergy Chest Verified 07/24/24 01:17 tightness Social History household members: family housing: house Smoking Status: Former smoker ROS ROS ED ROS Narrative Constitutional: Low-grade fever, no chills. HEENT: No sore throat. No neck pain. No loss of vision. No rhinorrhea. Cardiovascular: Positive chest pressure/chest pain. No palpitations. Bilateral pedal edema. Respiratory: No cough, no shortness of breath. Abdominal: No abdominal pain. Positive nausea. No vomiting. Genitourinary: No dysuria. No hematuria. Musculoskeletal: No myalgias. No arthralgias. Neurologic: Positive headaches. No dizziness. No lightheadedness. Skin: No rash. No change in color. Psychiatric: No depression. Positive anxiety. EXAM Physical Exam Narrative Exam Narrative: Afebrile. Vital signs noted. HEENT examination shows PERRL, EOMI. Cardiovascular examination regular rate and rhythm. Lungs are clear to auscultation bilaterally. Abdomen is soft nontender with normoactive bowel sounds. Neurological examination is nonfocal and nonlateralizing, moves all extremities. No pitting edema appreciated of the bilateral lower extremities. No overt swelling. Psychiatric: Positive anxiety, almost tearful. States he is concerned about having a heart attack or stroke. Const Vital Signs: 07/24/24 01:20 07/24/24 01:36 07/24/24 02:17 Temperature 97.4 F L Temperature Source Temporal Pulse Rate 75 73 Respiratory Rate 16 20 H Blood Pressure 121/84 H 109/71 Blood Pressure Mean 96 83 Pulse Ox 98 97 Oxygen Delivery Method Room Air Room Air 07/24/24 03:00 07/24/24 04:00 Temperature Temperature Source Pulse Rate 71 73 Respiratory Rate 16 16 Blood Pressure 110/69 110/70 Blood Pressure Mean 82 83 Pulse Ox 97 97 Oxygen Delivery Method Room Air Room Air MDM MDM MDM Narrative Medical decision making narrative: Differential diagnosis includes but not limited to coronary syndrome versus pneumothorax versus pneumonia versus pulmonary embolism versus anxiety/panic attack. Comprehensive workup was pursued. EKG was obtained and interpreted by myself independently as normal sinus rhythm at 74 bpm without ectopy or acute ST changes. No STEMI. She not tachycardic or hypoxic. History and physical does not support pneumothorax. I will obtain a D-dimer to help rule out pulmonary embolism as the patient is on estradiol. She also takes progesterone, levothyroxine, and lorazepam. I reviewed her laboratory work and she has normal white count 9.4, hemoglobin normal at 13.0, platelet count normal at 182. D-dimer is negative at 0.27, I do not (more content not included)... [facility] L501.4020on 07-24-2024 TROPONIN-I HS < 3 Low 3.0-78.0 [facility] Comment on above: Result Comment: Plesheri barrow Note: New Test Units and Gender Specific Reference Ranges. For more information see Policy Stat Procedure [facility] High Sensitivity Troponin (TNIH) and attachments. Performed By: #### L 501.4020 ####[facility] [address] [place], [address] L501.5425on 07-24-2024 TROPONIN-I HS 3 pg/mL Normal 3.0-78.0 [facility] Comment on above: Order Comment: 1Y Result Comment: Plea se Note: New Test Units and Gender Specific Reference Ranges. For more information see Policy Stat Procedure [facility] High Sensitivity Troponin (TNIH) and attachments. Performed By: #### L 500.2500, L300.8000, L501.2450, L501.5425, L100.0100, L501.5200 ####[facility] [address] [place], [address] Lipaseon 07-24-2024 Lipase [Catalytic activity/Vol] 54 U/L Normal 13-75 [facility] Comment on above: Order Comment: 1Y Result Comment: Zohaib barrow note: LIPASE revised reference range effective 23. New Lipase methodology. Expected to produce lower values than the previous assay method. NEW Reference Range: 13 - 75 U/L Performed By: #### L 500.2500, L300.8000, L501.2450, L501.5425, L100.0100, L501.5200 ####[facility] [address] [place], [address] Magnesiumon 07-24-2024 Magnesium [Mass/Vol] 1.9 mg/dL Normal 1.6-2.6 [facility] Comment on above: Order Comment: 1Y Performed By: #### L 500.2500, L300.8000, L501.2450, L501.5425, L100.0100, L501.5200 ####[facility] [address] [place], [address] [facility] 05-18-2024 CN Office Visit (UCWSTR ) SEGUNDO QUEZADA ([id number]) 1980 M T Date Time Provider Department 05/18/24 5:30 PM ELSIE BROCK [facility] During your visit today, we recorded the following information about you: Temperature Pulse Respiration Blood pressure 97.8 degrees 74/minute 16/minute 110/76 Weight 69.1 kg Elsie Brock PA 05/18/2024 5:41 PM Signed 43-year-old female presents for left-sided chest pain, shortness of breath. Patient states she has felt short of breath for the past 3 days. She has pain and pressure on the left side of her chest radiating towards her back. She has had some nasal congestion, but no cough. No fevers. She has a pneumonia in the past, but states this does not feel similar. She states she has never had this pain before in her chest. Pain is an 8/10. Due to chest pain, did recommend evaluation in the emergency room. Patient declines EMS, feels comfortable driving herself. Vital stable here. Allergies As of Date: 05/18/2024 (No Known Allergies) Date Reviewed: 05/18/2024 Reviewed by: Flakita Gar MA - Fully Assessed Reason for Visit: Chest Congestion [236] Cmt: sinus pressure, throat irritation and sob x 3 days Primary Visit Diagnosis:Chest pain, unspecified type [R07.9] Prescriptions as of 05/18/2024 - spironolactone (ALDACTONE) 50 mg tablet take 1 tablet by mouth every 12 hours - Phentermine HCl 37.5 mg tablet Take 1 tablet by mouth once daily for 90 days. - dulaglutide (TRULICITY) 3 mg/0.5 mL pen injector Inject 3 mg subcutaneously one time a week. - traZODone (DESYREL) 50 mg tablet Take 1 tablet by mouth at bedtime as needed. - finasteride (PROPECIA) 1 mg tablet take 1 tablet by mouth once daily - estradiol (ESTRACE) 2 mg tablet Take 1 tablet by mouth three times a day. - Syringe with Needle, Disp, 1 mL 25 gauge x 1 syrg 1 Each one time a week. - Needle, Disp, 18 G 18 gauge x 1 1/2 1 Each one time a week. - alcohol swabs Apply 1 Each to affected area one time a week. - Oral Medication Containers (SHARPS CONTAINER) misc Use as needed weekly to store used sharps from estradiol injections - fluvoxaMINE (LUVOX) 100 mg tablet take 1 tablet by mouth every morning - busPIRone (BUSPAR) 10 mg tablet take 1 tablet by mouth three times a day - levothyroxine (SYNTHROID) 25 mcg tablet take 1 tablet by mouth once daily - famotidine (PEPCID) 20 mg tablet take 1 tablet by mouth twice a day if needed - MULTIVITAMIN/IRON/FOL IC ACID (DAILY MULTI ORAL) Take 1 tablet by mouth once daily. Problem List As Of Date 05/18/2024 Noted Resolved Cellulitis and abscess of unspecified site [L03*02/13/2009 08/10/2019 History of 2019 novel coronavirus disease (COVI*11/10/2020 Drug reaction [T50.905A] 11/10/2020 04/12/2022 Gender dysphoria [F64.9] 07/17/2021 Obesity [E66.9] 07/17/2021 Former smoker [Z87.891] 07/17/2021 Concern about skin disease without diagnosis [Z*09/04/2021 Nasal valve collapse [M95.0] 04/12/2022 12/23/2023 Nasal septal deviation [J34.2] 04/12/2022 12/23/2023 Hypothyroidism [E03.9] Anxiety and depression [F41.9, F32.A] Dyspepsia [R10.13] 04/22/2022 Insomnia [G47.00] 01/13/2023 Recurrent UTI [N39.0] 05/05/2023 Pilonidal cyst with abscess [L05.01] 05/22/2023 12/23/2023 Sinus headache [R51.9] 01/13/2023 12/23/2023 Anal or rectal pain [K62.89] 06/26/2023 12/23/2023 Encounter Status:Closed by ELSIE BROCK on 05/18/24 Normal [facility] Chest PA and Lateralon 05-18 Chest PA and Lateral [facility] [address] [place] [address] Chest PA and Lateral MR#: [id number] Acct: [id number] Name: SEGUNDO QUEZADA Rep #: [id number] : 1980 M 43 From: Rafael Aguilera PCP: JARED SCHILLING Status: REG ER Study: Chest PA and Lateral Date of Exam: 05/18/24 Exam# [id number] Ordering Dr: Urban Moralez MD [id number] STUDY: X-RAY CHEST REASON FOR EXAM: Male, 43 years old. Pleuritic chest pain, upper respiratory symptoms TECHNIQUE: Frontal and lateral views of the chest. COMPARISON: February 05, 2024 FINDINGS: The lungs are clear and expanded. There is no demonstrated pleural abnormality. Normal size heart. Normal mediastinum and edouard. Normal visualized pulmonary arteries. Normal visualized aortic arch and descending thoracic aorta. Normal visualized thoracic spine. Normal visualized ribs, clavicles, and shoulders. There is no demonstrated abnormality of the visualized soft tissue structures of the upper abdomen. RAD/Chest PA and Lateral IMPRESSION: Normal x-ray examination of the chest. Electronically Signed: Rafael Kelley MD at 18:36 EDT , CC: Dr. Urban Moralez MD; JARED SCHILLING Therapy Site Coordinator: Signed [facility] Emergency Department Summary on 05-18-2024 Emergency Department Summary [facility] Medical Records Department [address] [place] [address] Emergency Department Summary 05/18/24 MR#: [id number] Acct: [id number] Name: SEGUNDO QUEZADA Rep #: [id number] : 1980 43 From: Urban Moralez MD PCP: Care Physician,No Primary Status:PRE ER Location: ED HPI History of Present Illness Chief Complaint: General Illness Detail of Chief Complaint: Patient presents with congestion, mild sore throat chest discomfort with pl Informant: patient Onset/Context/Timing Onset: Days (Symptoms started this past Friday, May 14) Context: Sudden Onset Timing: Intermittent Quality: Upper respiratory symptoms Location: Upper respiratory Current Severity: Mild Maximum Severity: Moderate Worsened by: Breathing Relieved by: Nothing Associated Symptoms Associated Symptoms: Patient has no history of PE or DVT. Patient Nuys leg pain, swelling disco Narrative Narrative: Patient is a 43-year-old genotypic male who identifies as a woman. He presents with respiratory symptoms congestion, sore throat. He denies cough. Complains of chest discomfort. There is a pleuritic component. He denies leg pain, swelling discoloration. She denies documented fever. He denies chills. She denies myalgias or arthralgias. She denies rash. Patient has no complaint of headache, photophobia or sonophobia. There is no complaint of neck pain or stiffness. There is a history of GERD. Patient is on antidepressant as well as hormones including levothyroxine. Prior similar symptoms: No Recent Illness/Hospitalizati on: No PFSH PFSH Medical History Hypothyroidism Anxiety Depression Home Medications ???Medication ???Instructions ???Recorded ???Last Taken ???Type fluvoxamine 50 mg tablet 150 mg PO QHS 09/16/16 Unknown History dexamethasone 6 mg tablet 6 mg PO DAILY 5 days 11/01/20 Unknown Rx ibuprofen 600 mg tablet 600 mg PO Q6H PRN PRN fever or 02/11/22 Unknown Rx pain #20 tabs tramadol 50 mg tablet 50 mg PO Q8H PRN pain #9 tabs 02/11/22 Unknown Rx buspirone 10 mg tablet 10 mg PO TID 02/05/24 Unknown History dulaglutide 3 mg/0.5 mL 3 mg subcut QWEEK 02/05/24 Unknown History subcutaneous pen injector (Trulicity) estradiol 2 mg tablet 2 mg PO TID 02/05/24 Unknown History estradiol valerate 20 mg/mL 5 mg IM QWEEK 02/05/24 Unknown History intramuscular oil finasteride 1 mg tablet 1 mg PO DAILY 02/05/24 Unknown History fluvoxamine 100 mg tablet 100 mg PO 02/05/24 Unknown History levothyroxine 25 mcg tablet 25 mcg PO DAILY 02/05/24 Unknown History lorazepam 0.5 mg tablet 0.5 mg PO DAILY PRN anxiety 02/05/24 Unknown History nitrofurantoin 1 cap PO BID 02/05/24 Unknown History monohydrate/macrocrys tals 100 mg capsule progesterone micronized 100 mg 100 mg PO BID 02/05/24 Unknown History capsule spironolactone 50 mg tablet 50 mg PO Q12.TCU 02/05/24 Unknown History trazodone 50 mg tablet 50 mg PO QHS PRN PRN insomnia 02/05/24 Unknown History naproxen 500 mg tablet 500 mg PO BID #14 tabs 05/18/24 Unknown Rx Allergy/AdvReac Type Severity Reaction Status Date / Time green tea Allergy Chest Verified 05/18/24 17:54 tightness Social History household members: family housing: house Smoking Status: Former smoker ROS ROS ED Constitutional Constitutional ED: Denies chills, fever(s), subjective, sweats or weight loss Eyes Eyes: Denies blurry vision, change in vision or diplopia ENT ENT ED: Reports sore throat and other Details: HPI narrative ; Denies ear pain or rhinorrhea Cardiovascular Cardiovascular: Reports chest pain; Denies orthopnea, palpitations, paroxysmal nocturnal dyspnea or racing heartbeat Respiratory/Chest Respiratory/Chest: Denies cough, dyspnea, dyspnea on exertion, orthopnea or paroxysmal nocturnal dyspnea Gastrointestinal Gastrointestinal: Denies abdominal pain, constipation, diarrhea, melena, nausea or vomiting Musculoskeletal Musculoskeletal: Denies arthralgias, back pain or myalgias Integumentary Denies rash Endocrine Endocrinology: Denies cold intolerance or heat intolerance Hematologic/Lymphatic Hematologic/Lymphatic : Reports systems reviewed and no addt'l complaints, except as documented EXAM Physical Exam Const Vital Signs: 05/18/24 17:54 05/18/24 18:08 Temperature 97.4 F L Temperature Source Temporal Pulse Rate 75 Respiratory Rate 18 Respiratory Effort Normal Respiratory Pattern Normal Blood Pressure 125/82 H Blood Pressure Mean 96 Pulse Ox 100 Oxygen Delivery Method Room Air Positive well nourished and well developed Constitutional Narrative: Vital signs noted. Blood pressure slightly elevated. General Appearance ED: well de (more content not included)... [facility] UA DIP, URINE (POC)on 2023 BILIRUBIN UA (POCT) Negative Negative [facility] CLARITY UA (POCT) [facility] COLOR UA (POCT) [place] [facility] GLUCOSE UA (POCT) Negative Negative mg/dL [facility] Hemoglobin Ql (U) Negative Negative [facility] Interpretation and review of laboratory results Abnormal [facility] KETONE UA (POCT) Negative Negative mg/dL [facility] LEUKOCYTES UA (POCT) Negative Negative [facility] NITRITE UA (POCT) Positive Abnormal Negative [facility] PH UA (POCT) 6.0 4.5 - 8.0 [facility] Protein Ql (U) Negative Negative mg/dL [facility] SPECIFIC GRAVITY UA (POCT) <=1.005 Abnormal 1.005 - 1.030 [facility] UROBILINOGEN UA (POCT) 0.2 Kate l E.U./dL [facility] Location:[facility], [address] [place] [address], [place], [place], [id number] [place] [address] POINT OF CARE [facility] STREP A MOLECULAR (POC)on Procedural Control Valid [facility] Strep A (POCT) Negative Negative [facility] Absolute lymphocyte countOrd ered By: Sweta Oneill on 02-05-2024 Lymphocytes Auto (Unsp spec) [#/Vol] 3.44 10*3/uL 0.83-4.51 [facility] Automated lymphocyte count a s percentage of total leukocytesOrdered By: Sweta Oneill on 02-05-2024 Lymphocytes/100 WBC Auto (Unsp spec) 33.2 % 19-41 [facility] Basophil percentageOrdered B y: Sweta Oneill on 02-05-2024 Basophil percentage 0 SEEN /hpf 0-5 [facility] Basophils/100 WBC (Bld) 0.4 % 0-1 [facility] Chloride [Moles/Vol] 105 mmol/L 98-107 [facility] Eosinophils/100 WBC (Bld) 0.9 % 0-5 [facility] Glucose [Mass/Vol] 101 mg/dL 74-106 [facility] Comment on above: Fasting Glucose resu lt from 100 to 125 mg/dL suggests IMPAIRED HOMEOSTASIS per A.D.A. criteria. Hemoglobin (Bld) [Mass/Vol] 12.7 g/dL 13.0-16.5 [facility] Monocytes/100 WBC (Bld) 6.1 % 0-10 [facility] Neutrophils (Bld) [#/Vol] 6.1 10*3/uL 2.0-7.7 [facility] Neutrophils/100 WBC (Bld) 59.1 % 47-70 [facility] Potassium [Moles/Vol] 3.6 mmol/L 3.5-5.1 [facility] Sodium [Moles/Vol] 139 mmol/L 136-145 [facility] WBC (Bld) [#/Vol] 10.4 10*3/uL 4.4-11.0 [facility] Bilirubin Test strip Ql (U)O rdered By: Sweta Oneill on 02-05-2024 Bilirubin Ql (U) Negative Negative [facility] Determination of erythrocyte mean corpuscular volume (MCV)Ordered By: Sweta Oneill on 02-05-2024 MCV (RBC) [Entitic vol] 89.3 fL 80-94 [facility] Erythrocyte distribution wid th ratioOrdered By: Sweta Oneill on 02-05-2024 Erythrocyte distribution width (RBC) [Ratio] 12.5 % 11.6-14.6 [facility] Erythrocyte distribution wid th standard deviationOrdered By: Sweta Oneill on 02-05-2024 Erythrocyte distribution width (RBC) [Entitic vol] 40.4 fL 35.1-43.9 [facility] Hematocrit Auto (Bld) [Volum e fraction]Ordered By: Sweta Oneill on 02-05-2024 Hematocrit (Bld) [Volume fraction] 36.7 % 40-54 [facility] Immature granulocytes/100 WB C Auto (Bld)Ordered By: Sweta Oneill on 02-05-2024 Immature granulocytes/100 WBC (Bld) 0.300 % 0.0-0.9 [facility] Comment on above: IG% - Immature Granu locytes (promyelocytes, myelocytes and metamyelocytes) > 1% indicates that a LEFT SHIFT is Present. Ketones Test strip Ql (U)Ord ered By: Sweta Oneill on 02-05-2024 Ketones Ql (U) Negative Negative [facility] Laboratory - Chemistry and C hemistry - challengeOrdered By: Sweta Oneill on 02-05-2024 CO2 [Moles/Vol] 27.0 mmol/L 21.0-32.0 [facility] Urea nitrogen/Creatinine [Mass ratio] 16.2 mg/mg 10-20 [facility] Laboratory - Hematology and Cell countsOrdered By: Sweta Oneill on 02-05-2024 MCH (RBC) [Entitic mass] 30.9 pg 27.0-32.0 [facility] MCHC (RBC) [Mass/Vol] 34.6 g/dL 32-36 [facility] Nucleated RBC/100 WBC (Bld) [Ratio] 0 % 0-5 [facility] Platelet mean volume (Bld) [Entitic vol] 10.0 fL 6.2-12.0 [facility] Platelets (Bld) [#/Vol] 192 10*3/uL 150-450 [facility] Mucus LM Ql (Urine sed)Order ed By: Sweta Oneill on 02-05-2024 Mucus Ql (Urine sed) 0 SEEN /hpf [facility] Nitrite Test strip Ql (U)Ord ered By: Sweta Oneill on 02-05-2024 Nitrite Ql (U) Negative Negative [facility] No Panel InformationOrdered By: Sweta Oneill on 02-05-2024 Urine RBC 0 SEEN /hpf 0-5 [facility] D-Dimer Quantitative (PE/DVT) < 0.27 FEU/ug/m 0.27-0.49 [facility] Comment on above: NORMAL D-Dimer level (<0.50) indicates no DVT or PE. Estimated Creatinine Clearance Calc 109.37 ml/min [facility] Estimated GFR (MDRD) Amer 124 mL/min >60 [facility] Comment on above: GFR Calc Estimated GFR (MDRD) Non-Af Amer 102 mL/min >60 [facility] Comment on above: Non- GFR Calc Troponin I High Sensitivity < 3 pg/mL 3.0-78.0 [facility] Comment on above: Please Note: New Joceline t Units and Gender Specific Reference Ranges. For more information see Policy Stat Procedure [facility] High Sensitivity Troponin (TNIH) and attachments. Protein Test strip Ql (U)Ord ered By: Sweta Oneill on 02-05-2024 Protein Ql (U) Negative Negative [facility] RBC Auto (Bld) [#/Vol]Ordere d By: Sweta Oneill on 02-05-2024 RBC (Bld) [#/Vol] 4.11 10*6/uL 4.6-6.2 [facility] Serum or plasma calcium starr urement (mass/volume)Ordered By: Sweta Oneill on 02-05-2024 Calcium [Mass/Vol] 9.0 mg/dL 8.5-10.1 [facility] Serum or plasma creatinine m easurement (mass/volume)Ordered By: Sweta Oneill on 02-05-2024 Creatinine [Mass/Vol] 0.86 mg/dL 0.70-1.30 [facility] Comment on above: The validity of the calculated GFR & GFRAA in patients over 70 years has not been determined. Clinical correlation is essential. Serum or plasma thyroid stim ulating hormone (TSH) measurement (units/volume)Ordered By: Sweta Oneill on 02-05-2024 TSH Qn 3.38 uIU/mL 0.358-3.74 [facility] Serum or plasma urea nitroge n measurement (mass/volume)Ordered By: Sweta Oneill on 02-05-2024 Urea nitrogen [Mass/Vol] 14 mg/dL 7-18 [facility] Squamous epithelial cells de tection in urine sediment by light microscopyOrdered By: Sweta Oneill on 02-05-2024 Epithelial cells.squamous LM Ql (Urine sed) 0-5 SEEN /hpf 0-5 [facility] Thin prep Papanicolaou smear with manual screeningOrdered By: Sweta Oneill on 02-05-2024 Thin prep Papanicolaou smear with manual screening 7 5-15 [facility] Urine blood detectionOrdered By: Sweta Oneill on 02-05-2024 RBC Ql (U) Negative Negative [facility] Urine clarityOrdered By: Jennifer Oneill on 02-05-2024 Clarity (U) Clear Clear [facility] Urine color determinationOrd ered By: Sweta Oneill on 02-05-2024 Color (U) Yellow Yellow [facility] Urine glucose detectionOrder ed By: Sweta Oneill on 02-05-2024 Glucose Ql (U) Normal mg/dl Normal [facility] Urine leukocyte esterase det ection by dipstickOrdered By: Sweta Oneill on 02-05-2024 Leukocyte esterase Test strip Ql (U) Negative Negative [facility] Urine pHOrdered By: Sweta Oneill on 02-05-2024 pH (U) 8.0 [pH] 5.0 - 8.0 [facility] Urine sediment bacteria coun t by microscopy (number/high power field)Ordered By: wSeta Oneill on 02-05-2024 Bacteria LM.HPF (Urine sed) [#/Area] 0 /[HPF] None Seen [facility] Urine specific gravity measu rementOrdered By: Sweta Oneill on 02-05-2024 Specific gravity (U) [Rel density] 1.010 1.002-1.030 [facility] Urine urobilinogen measureme ntOrdered By: Sweta Oneill on 02-05-2024 Urobilinogen Ql (U) Normal mg/dl Normal [facility] UA DIP, URINE (POC)on 2023 BILIRUBIN UA (POCT) Negative Negative [facility] CLARITY UA (POCT) Clear [facility] COLOR UA (POCT) Yellow [facility] GLUCOSE UA (POCT) Negative Negative mg/dL [facility] Hemoglobin Ql (U) Trace-intact Abnormal Negative [facility] Interpretation and review of laboratory results Abnormal [facility] KETONE UA (POCT) Negative Negative mg/dL [facility] LEUKOCYTES UA (POCT) Negative [facility] NITRITE UA (POCT) Negative Negative [facility] PH UA (POCT) 7.0 4.5 - 8.0 [facility] Protein Ql (U) Negative Negative mg/dL [facility] SPECIFIC GRAVITY UA (POCT) 1.010 1.005 - 1.030 [facility] UROBILINOGEN UA (POCT) 0.2 Kate l E.U./dL [facility] Location:[facility], [address] [place] [address], [place], [place], [id number] [place] [address] POINT OF CARE [facility] Absolute lymphocyte countOrd ered By: Dayne Cosme on 06-25-2023 Lymphocytes Auto (Unsp spec) [#/Vol] 2.16 10*3/uL 0.83-4.51 [facility] Basophil percentageOrdered B y: Dayne Cosme on 06-25-2023 Basophils/100 WBC (Bld) 0.4 % 0-1 [facility] Chloride [Moles/Vol] 106 mmol/L 98-107 [facility] Eosinophils/100 WBC (Bld) 1.0 % 0-5 [facility] Glucose [Mass/Vol] 108 mg/dL 74-106 [facility] Comment on above: Fasting Glucose resu lt from 100 to 125 mg/dL suggests IMPAIRED HOMEOSTASIS per A.D.A. criteria. Neutrophils (Bld) [#/Vol] 4.8 10*3/uL 2.0-7.7 [facility] Neutrophils/100 WBC (Bld) 62.7 % 47-70 [facility] Potassium [Moles/Vol] 3.7 mmol/L 3.5-5.1 [facility] Sodium [Moles/Vol] 139 mmol/L 136-145 [facility] WBC (Bld) [#/Vol] 7.7 10*3/uL 4.4-11.0 [facility] Blood erythrocytes count (nu mber/volume)Ordered By: Dayne Cosme on 06-25-2023 RBC (Bld) [#/Vol] 4.05 10*6/uL 4.6-6.2 [facility] Blood hemoglobin measurement (mass/volume)Ordered By: Dayne Cosme on 06-25-2023 Hemoglobin (Bld) [Mass/Vol] 12.4 g/dL 13.0-16.5 [facility] Blood lymphocytes/100 leukoc ytesOrdered By: Dayne Cosme on 06-25-2023 Lymphocytes/100 WBC (Bld) 28.2 % 19-41 [facility] Blood monocytes/100 leukocyt esOrdered By: Dayne Cosme on 06-25-2023 Monocytes/100 WBC (Bld) 7.3 % 0-10 [facility] Blood platelet mean volumeOr dered By: Dayne Cosme on 06-25-2023 Platelet mean volume (Bld) [Entitic vol] 9.7 fL 6.2-12.0 [facility] Determination of erythrocyte mean corpuscular volume (MCV)Ordered By: Dayne Cosme on 06-25-2023 MCV (RBC) [Entitic vol] 91.6 fL 80-94 [facility] Hematocrit Auto (Bld) [Volum e fraction]Ordered By: Dayne Cosme on 06-25-2023 Hematocrit (Bld) [Volume fraction] 37.1 % 40-54 [facility] Laboratory - Chemistry and C hemistry - challengeOrdered By: Dayne Cosme on 06-25-2023 CO2 [Moles/Vol] 30.0 mmol/L 21.0-32.0 [facility] Urea nitrogen/Creatinine [Mass ratio] 17.4 mg/mg 10-20 [facility] Laboratory - Hematology and Cell countsOrdered By: Dayne Cosme on 06-25-2023 Erythrocyte distribution width (RBC) [Entitic vol] 39.1 fL 35.1-43.9 [facility] Erythrocyte distribution width (RBC) [Ratio] 11.8 % 11.6-14.6 [facility] Immature granulocytes/100 WBC (Bld) 0.400 % 0.0-0.9 [facility] Comment on above: IG% - Immature Granu locytes (promyelocytes, myelocytes and metamyelocytes) > 1% indicates that a LEFT SHIFT is Present. MCH (RBC) [Entitic mass] 30.6 pg 27.0-32.0 [facility] Nucleated RBC/100 WBC (Bld) [Ratio] 0 % 0-5 [facility] Auto (RBC) [Mass/Vol]Or dered By: Dayne Cosme on 06-25-2023 MCHC (RBC) [Mass/Vol] 33.4 g/dL 32-36 [facility] No Panel InformationOrdered By: Dayne Cosme on 06-25-2023 Estimated Creatinine Clearance Calc 100.98 ml/min [facility] Estimated GFR (MDRD) Amer 125 mL/min >60 [facility] Comment on above: GFR Calc Estimated GFR (MDRD) Non-Af Amer 103 mL/min >60 [facility] Comment on above: Non- GFR Calc Platelets bldOrdered By: Marco A Cosme on 06-25-2023 Platelets (Bld) [#/Vol] 172 10*3/uL 150-450 [facility] Serum or plasma calcium starr urement (mass/volume)Ordered By: Dayne Cosme on 06-25-2023 Calcium [Mass/Vol] 9.0 mg/dL 8.5-10.1 [facility] Serum or plasma creatinine m easurement (mass/volume)Ordered By: Danye Cosme on 06-25-2023 Creatinine [Mass/Vol] 0.86 mg/dL 0.70-1.30 [facility] Comment on above: The validity of the calculated GFR & GFRAA in patients over 70 years has not been determined. Clinical correlation is essential. Serum or plasma urea nitroge n measurement (mass/volume)Ordered By: Dayne Cosme on 06-25-2023 Urea nitrogen [Mass/Vol] 15 mg/dL 7-18 [facility] Thin prep Papanicolaou smear with manual screeningOrdered By: Dayne Cosme on 06-25-2023 Thin prep Papanicolaou smear with manual screening 3 5-15 [facility] US KIDNEY/BLADDERon 05-09-20 [facility] UA DIP, URINE (POC)on 2022 BILIRUBIN UA (POCT) Negative Negative [facility] CLARITY UA (POCT) [facility] COLOR UA (POCT) Dark [facility] GLUCOSE UA (POCT) Negative Negative mg/dL [facility] HEMOGLOBIN/BLOOD UA (POCT) Negative Negative [facility] KETONE UA (POCT) Negative Negative mg/dL [facility] LEUKOCYTES UA (POCT) Negative Negative [facility] NITRITE UA (POCT) Positive Abnormal Negative [facility] PH UA (POCT) 6.5 4.5 - 8.0 [facility] Protein Ql (U) Negative Negative mg/dL [facility] SPECIFIC GRAVITY UA (POCT) 1.010 1.005 - 1.030 [facility] UROBILINOGEN UA (POCT) 0.2 E.U./dL Kate l E.U./dL [facility] Absolute lymphocyte countOrd ered By: Ankit Malloy on 01-06-2023 Lymphocytes Auto (Unsp spec) [#/Vol] 2.33 10*3/uL 0.83-4.51 [facility] Basophil percentageOrdered B y: Anikt Malloy on 01-06-2023 Basophils/100 WBC (Bld) 0.5 % 0-1 [facility] Bilirubin [Mass/Vol] 0.40 mg/dL 0.20-1.00 [facility] Comment on above: For patients on eltr ombopag therapy, use of Dimension [place] TBIL is not recommended. Chloride [Moles/Vol] 106 mmol/L 98-107 [facility] Eosinophils/100 WBC (Bld) 1.3 % 0-5 [facility] Glucose [Mass/Vol] 138 mg/dL 74-106 [facility] Comment on above: Fasting Glucose resu lt greater than or equal to 126 mg/dL suggests DIABETES MELLITUS per A.D.A. criteria. Neutrophils (Bld) [#/Vol] 5.6 10*3/uL 2.0-7.7 [facility] Neutrophils/100 WBC (Bld) 65.1 % 47-70 [facility] Potassium [Moles/Vol] 3.8 mmol/L 3.5-5.1 [facility] Protein [Mass/Vol] 7.6 g/dL 6.4-8.2 [facility] Sodium [Moles/Vol] 137 mmol/L 136-145 [facility] WBC (Bld) [#/Vol] 8.6 10*3/uL 4.4-11.0 [facility] Basophil percentage 0 SEEN /hpf 0-5 [facility] Bilirubin Test strip Ql (U)O rdered By: Ankit Malloy on 01-06-2023 Bilirubin Ql (U) Negative Negative [facility] Blood erythrocytes count (nu mber/volume)Ordered By: Ankit Malloy on 01-06-2023 RBC (Bld) [#/Vol] 4.34 10*6/uL 4.6-6.2 [facility] Blood hemoglobin measurement (mass/volume)Ordered By: Ankit Malloy on 01-06-2023 Hemoglobin (Bld) [Mass/Vol] 13.6 g/dL 13.0-16.5 [facility] Blood lymphocytes/100 leukoc ytesOrdered By: Ankit Malloy on 01-06-2023 Lymphocytes/100 WBC (Bld) 27.0 % 19-41 [facility] Blood monocytes/100 leukocyt esOrdered By: Ankit Malloy on 01-06-2023 Monocytes/100 WBC (Bld) 5.6 % 0-10 [facility] Blood platelet mean volumeOr dered By: Ankit Malloy on 01-06-2023 Platelet mean volume (Bld) [Entitic vol] 10.0 fL 6.2-12.0 [facility] Determination of erythrocyte mean corpuscular volume (MCV)Ordered By: Ankit Malloy on 01-06-2023 MCV (RBC) [Entitic vol] 90.1 fL 80-94 [facility] Direct bilirubinOrdered By: Ankit Malloy on 01-06-2023 Bilirubin.direct [Mass/Vol] 0.12 mg/dL 0.00-0.30 [facility] Hematocrit Auto (Bld) [Volum e fraction]Ordered By: Ankit Malloy on 01-06-2023 Hematocrit (Bld) [Volume fraction] 39.1 % 40-54 [facility] Ketones Test strip Ql (U)Ord ered By: Ankit Malloy on 01-06-2023 Ketones Ql (U) Negative Negative [facility] Laboratory - Chemistry and C hemistry - challengeOrdered By: Ankit Malloy on 01-06-2023 ALP [Catalytic activity/Vol] 57 U/L 45-117 [facility] ALT [Catalytic activity/Vol] 43 U/L 16-61 [facility] CO2 [Moles/Vol] 28.0 mmol/L 21.0-32.0 [facility] Globulin (S) [Mass/Vol] 3.8 g/dL 2.2-4.2 [facility] Lipase [Catalytic activity/Vol] 66 U/L 73-393 [facility] Urea nitrogen/Creatinine [Mass ratio] 17.3 mg/mg 10-20 [facility] Laboratory - Hematology and Cell countsOrdered By: Ankit Malloy on 01-06-2023 Erythrocyte distribution width (RBC) [Entitic vol] 39.1 fL 35.1-43.9 [facility] Erythrocyte distribution width (RBC) [Ratio] 12.0 % 11.6-14.6 [facility] Immature granulocytes/100 WBC (Bld) 0.500 % 0.0-0.9 [facility] Comment on above: IG% - Immature Granu locytes (promyelocytes, myelocytes and metamyelocytes) > 1% indicates that a LEFT SHIFT is Present. MCH (RBC) [Entitic mass] 31.3 pg 27.0-32.0 [facility] Nucleated RBC/100 WBC (Bld) [Ratio] 0 % 0-5 [facility] MCHC Auto (RBC) [Mass/Vol]Or dered By: Ankit Malloy on 01-06-2023 MCHC (RBC) [Mass/Vol] 34.8 g/dL 32-36 [facility] Mucus LM Ql (Urine sed)Order ed By: Ankit Malloy on 01-06-2023 Mucus Ql (Urine sed) 0 SEEN /hpf [facility] Nitrite Test strip Ql (U)Ord ered By: Ankit Malloy on 01-06-2023 Nitrite Ql (U) Negative Negative [facility] No Panel InformationOrdered By: Ankit Malloy on 01-06-2023 Estimated Creatinine Clearance Calc 115.79 ml/min [facility] Estimated GFR (MDRD) Amer 146 mL/min >60 [facility] Comment on above: GFR Calc Estimated GFR (MDRD) Non-Af Amer 121 mL/min >60 [facility] Comment on above: Non- GFR Calc Platelets bldOrdered By: Andrei Malloy on 01-06-2023 Platelets (Bld) [#/Vol] 199 10*3/uL 150-450 [facility] Protein Test strip Ql (U)Ord ered By: Ankit Malloy on 01-06-2023 Protein Ql (U) Negative Negative [facility] Serum or plasma albumin starr urement (mass/volume)Ordered By: Ankit Malloy on 01-06-2023 Albumin [Mass/Vol] 3.8 g/dL 3.2-5.0 [facility] Serum or plasma calcium starr urement (mass/volume)Ordered By: Ankit Malloy on 01-06-2023 Calcium [Mass/Vol] 8.5 mg/dL 8.5-10.1 [facility] Serum or plasma creatinine m easurement (mass/volume)Ordered By: Ankit Malloy on 01-06-2023 Creatinine [Mass/Vol] 0.75 mg/dL 0.70-1.30 [facility] Comment on above: The validity of the calculated GFR & GFRAA in patients over 70 years has not been determined. Clinical correlation is essential. Serum or plasma urea nitroge n measurement (mass/volume)Ordered By: Ankit Malloy on 01-06-2023 Urea nitrogen [Mass/Vol] 13 mg/dL 7-18 [facility] Squamous epithelial cells de tection in urine sediment by light microscopyOrdered By: Ankit Malloy on 01-06-2023 Epithelial cells.squamous LM Ql (Urine sed) 0-5 SEEN /hpf 0-5 [facility] Thin prep Papanicolaou smear with manual screeningOrdered By: Ankit Malloy on 01-06-2023 Thin prep Papanicolaou smear with manual screening 19 U/L 15-37 [facility] Thin prep Papanicolaou smear with manual screening 3 5-15 [facility] Urine blood detectionOrdered By: Ankit Malloy on 01-06-2023 RBC Ql (U) Negative Negative [facility] RBC Ql (U) 0 SEEN /hpf 0-5 [facility] Urine clarityOrdered By: Andrei Malloy on 01-06-2023 Clarity (U) Clear Clear [facility] Urine color determinationOrd ered By: Ankit Malloy on 01-06-2023 Color (U) Yellow Yellow [facility] Urine glucose detectionOrder ed By: Ankit Malloy on 01-06-2023 Glucose Ql (U) Normal mg/dl Normal [facility] Urine leukocyte esterase det ection by dipstickOrdered By: Ankit Malloy on 01-06-2023 Leukocyte esterase Test strip Ql (U) Negative Negative [facility] Urine pHOrdered By: Ankit fish on 01-06-2023 pH (U) 6.0 [pH] 5.0 - 8.0 [facility] Urine sediment bacteria coun t by microscopy (number/high power field)Ordered By: Ankit Malloy on 01-06-2023 Bacteria LM.HPF (Urine sed) [#/Area] RARE /hpf None Seen [facility] Urine specific gravity measu rementOrdered By: Ankit Malloy on 01-06-2023 Specific gravity (U) [Rel density] 1.020 1.002-1.030 [facility] Urobilinogen Auto test strip Ql (U)Ordered By: Ankit Malloy on 01-06-2023 Urobilinogen Ql (U) Normal mg/dl Normal [facility] UA DIP, URINE (POC)on 2022 BILIRUBIN UA (POCT) Negative Negative [facility] CLARITY UA (POCT) Clear [facility] COLOR UA (POCT) Yellow [facility] GLUCOSE UA (POCT) Negative Negative mg/dL [facility] HEMOGLOBIN/BLOOD UA (POCT) Negative Negative [facility] KETONE UA (POCT) Negative Negative mg/dL [facility] LEUKOCYTES UA (POCT) Negative Negative [facility] NITRITE UA (POCT) Negative Negative [facility] PH UA (POCT) 7.0 4.5 - 8.0 [facility] Protein Ql (U) Negative Negative mg/dL [facility] SPECIFIC GRAVITY UA (POCT) 1.010 1.005 - 1.030 [facility] UROBILINOGEN UA (POCT) 0.2 E.U./dL Kate l E.U./dL [facility] No Panel Informationon 11-26 IMPRESSION: No acute abnormality Therapy Site Coordinator: YAIR Transcribe Date/Time: Nov 26 2021 6:47P Dictated by : MARY ANN MONTAGUE MD This examination was interpreted and the report reviewed and electronically signed by: MARY ANN MONTAGUE MD on Nov 26 2021 6:48PM [facility] DIVISION OF RADIOLOGY Radiology Study observation (narrative) [facility] No Panel InformationOrdered By: Ccf Provider on 11-26-2021 [facility] XR Lumbar spine AP and Later veronica 11-26-2021 * * *Final Report* * * DATE OF EXAM: Nov 26 2021 6:29PM WOX [id number] - XR LUMBAR 2V AP/LAT / PROCEDURE REASON: Lumbar spine pain * * * * Physician Interpretation * * * * PROCEDURE: Thoracic and lumbar spine INDICATION: Lumbar spine pain .pt with lumbar pain x2 weeks, no known injury. Worsening pain recently TECHNIQUE: XR LUMBAR 2V AP/LAT, XR THORACIC 2V AP/LAT COMPARISON: None FINDINGS: Thoracic spine: Mild dextroscoliosis. No fracture or subluxation. No significant disc space narrowing. Mild marginal vertebral body spurring in the mid to lower thoracic spine at multiple levels. No destructive osseous lesion or paraspinal abnormality. Lumbar spine: No fracture or subluxation. Mild levoscoliosis, perhaps positional. Disc space narrowing at the lumbosacral junction. Sacroiliac joints are unremarkable. DIVISION OF RADIOLOGY Provider, [facility] - 11/26/2021 * * *Final Report* * * DATE OF EXAM: Nov 26 2021 6:29PM WOX [id number] - XR LUMBAR 2V AP/LAT / PROCEDURE REASON: Lumbar spine pain * * * * Physician Interpretation * * * * PROCEDURE: Thoracic and lumbar spine INDICATION: Lumbar spine pain .pt with lumbar pain x2 weeks, no known injury. Worsening pain recently TECHNIQUE: XR LUMBAR 2V AP/LAT, XR THORACIC 2V AP/LAT COMPARISON: None FINDINGS: Thoracic spine: Mild dextroscoliosis. No fracture or subluxation. No significant disc space narrowing. Mild marginal vertebral body spurring in the mid to lower thoracic spine at multiple levels. No destructive osseous lesion or paraspinal abnormality. Lumbar spine: No fracture or subluxation. Mild levoscoliosis, perhaps positional. Disc space narrowing at the lumbosacral junction. Sacroiliac joints are unremarkable. IMPRESSION IMPRESSION: No acute abnormality Therapy [facility] Trans[facility] Date/Time: Nov 26 2021 6:47P Dictated by : MARY ANN MONTAGUE MD This examination was interpreted and the report reviewed and electronically signed by: MARY ANN MONTAGUE MD on Nov 26 2021 6:48PM [facility] XR Thoracic spine AP and Lat [facility] 11-26-2021 * * *Final Report* * * DATE OF EXAM: Nov 26 2021 6:29PM WOX [id number] - XR THORACIC 2V AP/LAT / PROCEDURE REASON: Lumbar spine pain * * * * Physician Interpretation * * * * PROCEDURE: Thoracic and lumbar spine INDICATION: Lumbar spine pain .pt with lumbar pain x2 weeks, no known injury. Worsening pain recently TECHNIQUE: XR LUMBAR 2V AP/LAT, XR THORACIC 2V AP/LAT COMPARISON: None FINDINGS: Thoracic spine: Mild dextroscoliosis. No fracture or subluxation. No significant disc space narrowing. Mild marginal vertebral body spurring in the mid to lower thoracic spine at multiple levels. No destructive osseous lesion or paraspinal abnormality. Lumbar spine: No fracture or subluxation. Mild levoscoliosis, perhaps positional. Disc space narrowing at the lumbosacral junction. Sacroiliac joints are unremarkable. DIVISION OF RADIOLOGY Provider, [facility] - 11/26/2021 * * *Final Report* * * DATE OF EXAM: Nov 26 2021 6:29PM WOX 5262 - XR THORACIC 2V AP/LAT / PROCEDURE REASON: Lumbar spine pain * * * * Physician Interpretation * * * * PROCEDURE: Thoracic and lumbar spine INDICATION: Lumbar spine pain .pt with lumbar pain x2 weeks, no known injury. Worsening pain recently TECHNIQUE: XR LUMBAR 2V AP/LAT, XR THORACIC 2V AP/LAT COMPARISON: None FINDINGS: Thoracic spine: Mild dextroscoliosis. No fracture or subluxation. No significant disc space narrowing. Mild marginal vertebral body spurring in the mid to lower thoracic spine at multiple levels. No destructive osseous lesion or paraspinal abnormality. Lumbar spine: No fracture or subluxation. Mild levoscoliosis, perhaps positional. Disc space narrowing at the lumbosacral junction. Sacroiliac joints are unremarkable. IMPRESSION IMPRESSION: No acute abnormality Therapy [facility] Trans[facility] Date/Time: Nov 26 2021 6:47P Dictated by : MARY ANN MONTAGUE MD This examination was interpreted and the report reviewed and electronically signed by: MARY ANN MONTAGUE MD on Nov 26 2021 6:48PM EST [facility] CT Facial bones WO contrasto n 06-01-2021 IMPRESSION: Surgical planning study. Therapy Site Coordinator: [facility] Transcribe Date/Time: May 31 2021 2:40P Dictated by : YANI PRYOR MD This examination was interpreted and the report reviewed and electronically signed by: YANI PRYOR MD on Jun 01 2021 8:17AM [facility] DIVISION OF RADIOLOGY * * *Final Report* * * DATE OF EXAM: May 31 2021 1:55PM [facility] 0507 - CT FACIAL BONE/RIGO WO IVCON / PROCEDURE REASON: Facial pain * * * * Physician Interpretation * * * * EXAMINATION: CT FACIAL BONE/RIGO WO IVCON CLINICAL HISTORY: Preoperative planning CT prior to orthognathic surgery Technique: Spiral high resolution axial unenhanced images were obtained through the facial bones with sagittal and coronal planar reconstructions. MQ: CTMFWO_1 CT Radiation dose: Integrated Dose-Length Product (DLP) for this visit = 766 mGy*cm. CT Dose Reduction Employed: mAs-kVp adjusted based on patient size-age COMPARISON: None. RESULT: Search Advertising Strategist (topogram) images: No additional findings. Soft Tissues: No significant superficial soft tissue swelling. Facial bones: Very mild class II malocclusion. In the mandible there is an unerupted incisor at midline (supranumerary). Prior mandibular premolar extractions. No evidence of an acute fracture in the visualized facial bones. Orbits: No evidence of an acute fracture. The globes are intact. The soft tissue planes of the orbits are maintained. Paranasal Sinuses: Mucous retention cyst right maxillary sinus. Foreign Bodies: No evidence of radiopaque foreign bodies. Other: No evidence of a remote fracture. No lytic or blastic process seen in the facial bones. DIVISION OF RADIOLOGY Provider, [facility] - 06/01/2021 * * *Final Report* * * DATE OF EXAM: May 31 2021 1:55PM [facility] 0507 - CT FACIAL BONE/RIGO WO IVCON / PROCEDURE REASON: Facial pain * * * * Physician Interpretation * * * * EXAMINATION: CT FACIAL BONE/RIGO WO IVCON CLINICAL HISTORY: Preoperative planning CT prior to orthognathic surgery Technique: Spiral high resolution axial unenhanced images were obtained through the facial bones with sagittal and coronal planar reconstructions. MQ: CTMFWO_1 CT Radiation dose: Integrated Dose-Length Product (DLP) for this visit = 766 mGy*cm. CT Dose Reduction Employed: mAs-kVp adjusted based on patient size-age COMPARISON: None. RESULT: Search Advertising Strategist (topogram) images: No additional findings. Soft Tissues: No significant superficial soft tissue swelling. Facial bones: Very mild class II malocclusion. In the mandible there is an unerupted incisor at midline (supranumerary). Prior mandibular premolar extractions. No evidence of an acute fracture in the visualized facial bones. Orbits: No evidence of an acute fracture. The globes are intact. The soft tissue planes of the orbits are maintained. Paranasal Sinuses: Mucous retention cyst right maxillary sinus. Foreign Bodies: No evidence of radiopaque foreign bodies. Other: No evidence of a remote fracture. No lytic or blastic process seen in the facial bones. IMPRESSION IMPRESSION: Surgical planning study. Therapy Site Coordinator: YAIR Transcribe Date/Time: May 31 2021 2:40P Dictated by : YANI PRYOR MD This examination was interpreted and the report reviewed and electronically signed by: YANI PRYOR MD on Jun 01 2021 8:17AM EST [facility] CT Facial bones WO contrastO rdered By: Cc Provider on 06-01-2021 [facility] CT Facial bones WO contrasto n 05-31-2021 Radiology Study observation (narrative) [facility] Vital Signs Date Time Vital Sign Value Performing Clinician Facility 04-26-2025 00:27-0400 Body temperature 98.1 [degF] JARED SCHILLING Work Phone: [facility] 04-26-2025 00:27-0400 Diastolic blood pressure 74 mm[Hg] JARED SCHILLING Work Phone: [facility] 04-26-2025 00:27-0400 Heart rate 79 /min JARED SCHILLING Work Phone: [facility] 04-26-2025 00:27-0400 Respiratory rate 18 /min JARED SCHILLING Work Phone: [facility] 04-26-2025 00:27-0400 SaO2% (BldA) [Mass fraction] 97 % JARED SCHILLING Work Phone: [facility] 04-26-2025 00:27-0400 Systolic blood pressure 132 mm[Hg] JARED SCHILLING Work Phone: [facility] 04-25-2025 19:14-0400 Body height 167.64 cm JARED SCHILLING Work Phone: [facility] 04-25-2025 19:14-0400 Body mass index (BMI) [Ratio] 23.6 kg/m2 JARED SCHILLING Work Phone: [facility] 04-25-2025 19:14-0400 Body weight 66.39 kg JARED SCHILLING Work Phone: [facility] 04-25-2025 16:51-0400 Body mass index (BMI) [Ratio] 23.45 kg/m2 Rafael Molina MD Work Phone: [facility] 04-25-2025 16:51-0400 Body temperature 98.29 [degF] Rafael Molina MD Work Phone: [facility] 04-25-2025 16:51-0400 Body weight 65.9 kg Rafael Molina MD Work Phone: [facility] 04-25-2025 16:51-0400 Diastolic blood pressure 74 mm[Hg] Rafael Molina MD Work Phone: [facility] 04-25-2025 16:51-0400 Heart rate 78 /min Rafael Molina MD Work Phone: [facility] 04-25-2025 16:51-0400 Respiratory rate 18 /min Rafael Molina MD Work Phone: [facility] 04-25-2025 16:51-0400 SaO2% (BldA) [Mass fraction] 99 % Rafael Molina MD Work Phone: [facility] 04-25-2025 16:51-0400 Systolic blood pressure 107 mm[Hg] Rafael Molina MD Work Phone: [facility] 04-22-2025 14:36-0400 Body height 167.6 cm Luz Marina Louden VIDEO TAPE EDITOR.SLOT AMBASSADOR Work Phone: [facility] 04-22-2025 14:36-0400 Body mass index (BMI) [Ratio] 22.92 kg/m2 Luz Marina Louden VIDEO TAPE EDITOR.SLOT AMBASSADOR Work Phone: [facility] 04-22-2025 14:36-0400 Body weight 64.41 kg Luz Marina Louden VIDEO TAPE EDITOR.SLOT AMBASSADOR Work Phone: [facility] 04-05-2025 09:00-0400 Body mass index (BMI) [Ratio] 23.24 kg/m2 Alonso Siu VIDEO TAPE EDITOR.SLOT AMBASSADOR Work Phone: [facility] 04-05-2025 09:00-0400 Body weight 65.32 kg Alonso Siu VIDEO TAPE EDITOR.SLOT AMBASSADOR Work Phone: [facility] 01-24-2025 14:54-0400 Body mass index (BMI) [Ratio] 23.09 kg/m2 Rickie Green Sea PA-C Work Phone: [facility] 01-24-2025 14:54-0400 Body weight 64.9 kg Rickie Green Sea PA-C Work Phone: [facility] 01-24-2025 14:54-0400 Diastolic blood pressure 50 mm[Hg] Rickie Green Sea PA-C Work Phone: [facility] 01-24-2025 14:54-0400 Heart rate 84 /min Rickie Green Sea PA-C Work Phone: [facility] 01-24-2025 14:54-0400 Respiratory rate 16 /min Rickie Green Sea PA-C Work Phone: [facility] 01-24-2025 14:54-0400 Systolic blood pressure 119 mm[Hg] Rickie Green Sea PA-C Work Phone: [facility] 12-16-2024 15:56-0500 Body mass index (BMI) [Ratio] 22.27 kg/m2 Alonso Siu VIDEO TAPE EDITOR.SLOT AMBASSADOR Work Phone: [facility] 12-16-2024 15:56-0500 Body weight 62.6 kg Alonso Kempke VIDEO TAPE EDITOR.SLOT AMBASSADOR Work Phone: [facility] 08-20-2024 10:50-0500 Body mass index (BMI) [Ratio] 23.4 kg/m2 Alonso Kempke VIDEO TAPE EDITOR.SLOT AMBASSADOR Work Phone: [facility] 08-20-2024 10:50-0500 Body weight 65.77 kg Alonso Kempke VIDEO TAPE EDITOR.SLOT AMBASSADOR Work Phone: [facility] 05-27-2024 08:49-0400 Body mass index (BMI) [Ratio] 24.53 kg/m2 Alonso Kempke VIDEO TAPE EDITOR.SLOT AMBASSADOR Work Phone: [facility] 05-27-2024 08:49-0400 Body weight 68.95 kg Alonso Marrympke VIDEO TAPE EDITOR.SLOT AMBASSADOR Work Phone: [facility] 05-18-2024 17:32-0400 Body mass index (BMI) [Ratio] 24.59 kg/m2 Krislyn Aberegg PA Work Phone: [facility] 05-18-2024 17:32-0400 Body temperature 97.81 [degF] Krislyn Aberegg PA Work Phone: [facility] 05-18-2024 17:32-0400 Body weight 69.1 kg Krislyn Aberegg PA Work Phone: [facility] 05-18-2024 17:32-0400 Diastolic blood pressure 76 mm[Hg] Krislyn Aberegg PA Work Phone: [facility] 05-18-2024 17:32-0400 Heart rate 74 /min Krislyn Aberegg PA Work Phone: [facility] 05-18-2024 17:32-0400 Respiratory rate 16 /min Krislyn Aberegg PA Work Phone: [facility] 05-18-2024 17:32-0400 SaO2% (BldA) [Mass fraction] 98 % Elsie NAGEL Work Phone: [facility] 05-18-2024 17:32-0400 Systolic blood pressure 110 mm[Hg] Elsie Brock PA Work Phone: [facility] 05-03-2024 18:53-0400 Body mass index (BMI) [Ratio] 25.09 kg/m2 Rafael Molina MD Work Phone: [facility] 05-03-2024 18:53-0400 Body temperature 96.91 [degF] Rafael Molina MD Work Phone: [facility] 05-03-2024 18:53-0400 Body weight 70.5 kg Rafael Molina MD Work Phone: [facility] 05-03-2024 18:53-0400 Diastolic blood pressure 68 mm[Hg] Rafael Molina MD Work Phone: [facility] 05-03-2024 18:53-0400 Heart rate 68 /min Rafael Molina MD Work Phone: [facility] 05-03-2024 18:53-0400 Respiratory rate 16 /min Rafael Molina MD Work Phone: [facility] 05-03-2024 18:53-0400 SaO2% (BldA) [Mass fraction] 97 % Rafael Molina MD Work Phone: [facility] 05-03-2024 18:53-0400 Systolic blood pressure 110 mm[Hg] Rafael Molina MD Work Phone: [facility] 03-12-2024 14:47-0400 Body mass index (BMI) [Ratio] 26.95 kg/m2 Alonso Siu APRN.CNP Work Phone: [facility] 03-12-2024 14:47-0400 Body weight 75.75 kg Alonso Siu APRN.CNP Work Phone: [facility] 03-05-2024 17:13-0400 Body mass index (BMI) [Ratio] 26.69 kg/m2 Jammie Praisler-Wood VIDEO TAPE EDITOR.SLOT AMBASSADOR Work Phone: [facility] 03-05-2024 17:13-0400 Body temperature 97.11 [degF] Jammie Praisler-Wood VIDEO TAPE EDITOR.SLOT AMBASSADOR Work Phone: [facility] 03-05-2024 17:13-0400 Body weight 75 kg Jammie Praisler-Wood VIDEO TAPE EDITOR.SLOT AMBASSADOR Work Phone: [facility] 03-05-2024 17:13-0400 Diastolic blood pressure 64 mm[Hg] Jammie Praisler-Wood VIDEO TAPE EDITOR.SLOT AMBASSADOR Work Phone: [facility] 03-05-2024 17:13-0400 Heart rate 86 /min Jammie Praisler-Wood VIDEO TAPE EDITOR.SLOT AMBASSADOR Work Phone: [facility] 03-05-2024 17:13-0400 Respiratory rate 16 /min Jammie Praisler-Wood VIDEO TAPE EDITOR.SLOT AMBASSADOR Work Phone: [facility] 03-05-2024 17:13-0400 SaO2% (BldA) [Mass fraction] 96 % Jammie Praisler-Wood VIDEO TAPE EDITOR.SLOT AMBASSADOR Work Phone: [facility] 03-05-2024 17:13-0400 Systolic blood pressure 120 mm[Hg] Jammie Praisler-Wood VIDEO TAPE EDITOR.SLOT AMBASSADOR Work Phone: [facility] 02-05-2024 22:10-0400 Body temperature 96.9 [degF] [facility] 02-05-2024 22:10-0400 Diastolic blood pressure 68 mm[Hg] [facility] 02-05-2024 22:10-0400 Heart rate 63 /min [facility] 02-05-2024 22:10-0400 Respiratory rate 14 /min [facility] 02-05-2024 22:10-0400 SaO2% (BldA) [Mass fraction] 98 % [facility] 02-05-2024 22:10-0400 Systolic blood pressure 104 mm[Hg] [facility] 02-05-2024 19:48-0400 Body height 167.64 cm [facility] 02-05-2024 19:48-0400 Body mass index (BMI) [Ratio] 28 kg/m2 [facility] 02-05-2024 19:48-0400 Body weight 78.83 kg [facility] 02-03-2024 17:51-0400 Body mass index (BMI) [Ratio] 27.97 kg/m2 Gil Castro VIDEO TAPE EDITOR.SLOT AMBASSADOR Work Phone: [facility] 02-03-2024 17:51-0400 Body temperature 98.4 [degF] Gil Castro VIDEO TAPE EDITOR.SLOT AMBASSADOR Work Phone: [facility] 02-03-2024 17:51-0400 Body weight 78.6 kg Gil Castro VIDEO TAPE EDITOR.SLOT AMBASSADOR Work Phone: [facility] 02-03-2024 17:51-0400 Diastolic blood pressure 84 mm[Hg] Gil Castro VIDEO TAPE EDITOR.SLOT AMBASSADOR Work Phone: [facility] 02-03-2024 17:51-0400 Heart rate 84 /min Gil Castro VIDEO TAPE EDITOR.SLOT AMBASSADOR Work Phone: [facility] 02-03-2024 17:51-0400 Respiratory rate 18 /min Gil Castro VIDEO TAPE EDITOR.SLOT AMBASSADOR Work Phone: [facility] 02-03-2024 17:51-0400 SaO2% (BldA) [Mass fraction] 99 % Gil Castro VIDEO TAPE EDITOR.SLOT AMBASSADOR Work Phone: [facility] 02-03-2024 17:51-0400 Systolic blood pressure 132 mm[Hg] Gil Castro VIDEO TAPE EDITOR.SLOT AMBASSADOR Work Phone: [facility] 01-26-2024 15:11-0400 Body height 167.6 cm Navneet Dunham MD Work Phone: [facility] 01-26-2024 15:11-0400 Body temperature 98.49 [degF] Navneet Dunham MD Work Phone: [facility] 01-26-2024 15:11-0400 Body weight 78.93 kg Navneet Dunham MD Work Phone: [facility] 01-26-2024 15:11-0400 Diastolic blood pressure 76 mm[Hg] Navneet Dunham MD Work Phone: [facility] 01-26-2024 15:11-0400 Heart rate 79 /min Navneet Dunham MD Work Phone: [facility] 01-26-2024 15:11-0400 Systolic blood pressure 128 mm[Hg] Navneet Dunham MD Work Phone: [facility] 08-19-2023 15:49-0500 Body weight 97.52 kg Alonso Siu APRN.CNP Work Phone: [facility] 06-25-2023 22:15-0400 Body height 167.64 cm [facility] 06-25-2023 22:15-0400 Body mass index (BMI) [Ratio] 33.7 kg/m2 [facility] 06-25-2023 22:15-0400 Body temperature 98 [degF] [facility] 06-25-2023 22:15-0400 Body weight 94.97 kg [facility] 06-25-2023 22:15-0400 Diastolic blood pressure 84 mm[Hg] [facility] 06-25-2023 22:15-0400 Heart rate 85 /min [facility] 06-25-2023 22:15-0400 Respiratory rate 16 /min [facility] 06-25-2023 22:15-0400 SaO2% (BldA) [Mass fraction] 98 % [facility] 06-25-2023 22:15-0400 Systolic blood pressure 141 mm[Hg] [facility] 05-18-2023 18:54-0400 Body mass index (BMI) [Ratio] 33.5 kg/m2 [facility] 05-18-2023 18:54-0400 Body weight 94.1 kg [facility] 05-18-2023 18:44-0400 Body height 167.64 cm [facility] 05-18-2023 18:44-0400 Body temperature 98 [degF] [facility] 05-18-2023 18:44-0400 Diastolic blood pressure 81 mm[Hg] [facility] 05-18-2023 18:44-0400 Heart rate 79 /min [facility] 05-18-2023 18:44-0400 Respiratory rate 16 /min [facility] 05-18-2023 18:44-0400 SaO2% (BldA) [Mass fraction] 97 % [facility] 05-18-2023 18:44-0400 Systolic blood pressure 127 mm[Hg] [facility] 04-30-2023 17:28-0400 Body temperature 97.2 [degF] Donna Felder VIDEO TAPE EDITOR.SLOT AMBASSADOR Work Phone: [facility] 04-30-2023 17:28-0400 Body weight 92.99 kg Donna Felder VIDEO TAPE EDITOR.SLOT AMBASSADOR Work Phone: [facility] 04-30-2023 17:28-0400 Diastolic blood pressure 80 mm[Hg] Donna Felder VIDEO TAPE EDITOR.SLOT AMBASSADOR Work Phone: [facility] 04-30-2023 17:28-0400 Heart rate 66 /min Donna Felder VIDEO TAPE EDITOR.SLOT AMBASSADOR Work Phone: [facility] 04-30-2023 17:28-0400 Respiratory rate 16 /min Donna Felder VIDEO TAPE EDITOR.SLOT AMBASSADOR Work Phone: [facility] 04-30-2023 17:28-0400 SaO2% (BldA) [Mass fraction] 96 % Donna Felder VIDEO TAPE EDITOR.SLOT AMBASSADOR Work Phone: [facility] 04-30-2023 17:28-0400 Systolic blood pressure 118 mm[Hg] Donna Felder VIDEO TAPE EDITOR.SLOT AMBASSADOR Work Phone: [facility] 02-24-2023 23:52-0400 Body height 167.64 cm [facility] 02-24-2023 23:52-0400 Body mass index (BMI) [Ratio] 31.6 kg/m2 [facility] 02-24-2023 23:52-0400 Body temperature 97.9 [degF] [facility] 02-24-2023 23:52-0400 Body weight 88.8 kg [facility] 02-24-2023 23:52-0400 Diastolic blood pressure 68 mm[Hg] [facility] 02-24-2023 23:52-0400 Heart rate 78 /min [facility] 02-24-2023 23:52-0400 Respiratory rate 16 /min [facility] 02-24-2023 23:52-0400 SaO2% (BldA) [Mass fraction] 98 % [facility] 02-24-2023 23:52-0400 Systolic blood pressure 144 mm[Hg] [facility] 01-06-2023 22:16-0400 Body height 167.64 cm [facility] 01-06-2023 22:16-0400 Body mass index (BMI) [Ratio] 31.6 kg/m2 [facility] 01-06-2023 22:16-0400 Body temperature 98.4 [degF] [facility] 01-06-2023 22:16-0400 Body weight 89.1 kg [facility] 01-06-2023 22:16-0400 Diastolic blood pressure 67 mm[Hg] [facility] 01-06-2023 22:16-0400 Heart rate 76 /min [facility] 01-06-2023 22:16-0400 Respiratory rate 20 /min [facility] 01-06-2023 22:16-0400 SaO2% (BldA) [Mass fraction] 100 % [facility] 01-06-2023 22:16-0400 Systolic blood pressure 117 mm[Hg] [facility] 12-06-2022 17:56-0500 Body temperature 97.81 [degF] Elsie NAGEL Work Phone: [facility] 12-06-2022 17:56-0500 Body weight 88 kg Elsie NAGEL Work Phone: [facility] 12-06-2022 17:56-0500 Diastolic blood pressure 68 mm[Hg] Krislyn Aberegg PA Work Phone: [facility] 12-06-2022 17:56-0500 Heart rate 71 /min Krislyn Aberegg PA Work Phone: [facility] 12-06-2022 17:56-0500 Respiratory rate 16 /min Krislyn Aberegg PA Work Phone: [facility] 12-06-2022 17:56-0500 SaO2% (BldA) [Mass fraction] 98 % Krislyn Aberegg PA Work Phone: [facility] 12-06-2022 17:56-0500 Systolic blood pressure 100 mm[Hg] Krislyn Aberegg PA Work Phone: [facility] 11-05-2022 16:09-0500 Body temperature 97.2 [degF] Navneet Dunham MD Work Phone: [facility] 11-05-2022 16:09-0500 Diastolic blood pressure 77 mm[Hg] Navneet Dunham MD Work Phone: [facility] 11-05-2022 16:09-0500 Heart rate 74 /min Navneet Dunham MD Work Phone: [facility] 11-05-2022 16:09-0500 Systolic blood pressure 121 mm[Hg] Navneet Dunham MD Work Phone: [facility] 07-09-2022 15:21-0400 Body temperature 96.91 [degF] Navneet Dunham MD Work Phone: [facility] 07-09-2022 15:21-0400 Diastolic blood pressure 41 mm[Hg] Navneet Dunham MD Work Phone: [facility] 07-09-2022 15:21-0400 Heart rate 59 /min Navneet Dunham MD Work Phone: [facility] 07-09-2022 15:21-0400 Systolic blood pressure 105 mm[Hg] Navneet Dunham MD Work Phone: [facility] 05-27-2022 15:52-0400 Body temperature 99.61 [degF] Navneet Dunham MD Work Phone: [facility] 05-27-2022 15:52-0400 Diastolic blood pressure 61 mm[Hg] Navneet Dunham MD Work Phone: [facility] 05-27-2022 15:52-0400 Heart rate 56 /min Navneet Dunham MD Work Phone: [facility] 05-27-2022 15:52-0400 Systolic blood pressure 114 mm[Hg] Navneet Dunham MD Work Phone: [facility] 05-21-2022 14:36-0400 Body temperature 98.4 [degF] Navneet Dunham MD Work Phone: [facility] 05-21-2022 14:36-0400 Diastolic blood pressure 58 mm[Hg] Navneet Dunham MD Work Phone: [facility] 05-21-2022 14:36-0400 Heart rate 63 /min Navneet Dunham MD Work Phone: [facility] 05-21-2022 14:36-0400 Systolic blood pressure 117 mm[Hg] Navneet Dunham MD Work Phone: [facility] 05-13-2022 14:42-0400 Body temperature 98.4 [degF] Navneet Dunham MD Work Phone: [facility] 05-13-2022 14:42-0400 Diastolic blood pressure 71 mm[Hg] Navneet Dunham MD Work Phone: [facility] 05-13-2022 14:42-0400 Heart rate 74 /min Navneet Dunham MD Work Phone: [facility] 05-13-2022 14:42-0400 Systolic blood pressure 115 mm[Hg] Navneet Dunham MD Work Phone: [facility] 04-12-2022 15:50-0400 Body height 167.6 cm Pacc 1 Work Phone: [facility] 04-12-2022 15:50-0400 Body temperature 96.91 [degF] Pacc 1 Work Phone: [facility] 04-12-2022 15:50-0400 Body weight 78.93 kg Pacc 1 Work Phone: [facility] 04-12-2022 15:50-0400 Diastolic blood pressure 90 mm[Hg] Pacc 1 Work Phone: [facility] 04-12-2022 15:50-0400 Heart rate 85 /min Pacc 1 Work Phone: [facility] 04-12-2022 15:50-0400 Respiratory rate 16 /min Pacc 1 Work Phone: [facility] 04-12-2022 15:50-0400 SaO2% (BldA) [Mass fraction] 96 % Pacc 1 Work Phone: [facility] 04-12-2022 15:50-0400 Systolic blood pressure 118 mm[Hg] Pacc 1 Work Phone: [facility] 03-25-2022 14:38-0400 Body temperature 98.8 [degF] Navneet Dunham MD Work Phone: [facility] 03-25-2022 14:38-0400 Diastolic blood pressure 73 mm[Hg] Navneet Dunham MD Work Phone: [facility] 03-25-2022 14:38-0400 Heart rate 67 /min Navneet Dunham MD Work Phone: [facility] 03-25-2022 14:38-0400 Systolic blood pressure 126 mm[Hg] Navneet Dunham MD Work Phone: [facility] 02-11-2022 07:47-0400 Body height 170.18 cm [facility] Work Phone: 02-11-2022 07:47-0400 Body mass index (BMI) [Ratio] 25 kg/m2 [facility] Work Phone: 02-11-2022 07:47-0400 Body temperature 97.5 [degF] [facility] Work Phone: 02-11-2022 07:47-0400 Body weight 72.57 kg [facility] Work Phone: 02-11-2022 07:47-0400 Diastolic blood pressure 90 mm[Hg] [facility] Work Phone: 02-11-2022 07:47-0400 Heart rate 107 /min [facility] Work Phone: 02-11-2022 07:47-0400 Respiratory rate 16 /min [facility] Work Phone: 02-11-2022 07:47-0400 SaO2% (BldA) [Mass fraction] 95 % [facility] Work Phone: 02-11-2022 07:47-0400 Systolic blood pressure 108 mm[Hg] [facility] Work Phone: Encounters Encounter Date Encounter Type Care Provider Facility Start: 05-10-2025 End: 05-12-2025 Telephone encounter Jared Schilling MD Work Phone: [facility] Comment on above: Nurse Triage Call; T hroat Problem Start: 05-03-2025 End: 05-04-2025 Follow-up encounter Rickie Cornell PA-C Work Phone: [facility] Start: 05-02-2025 End: 05-02-2025 Subsequent hospital visit by physician Marcelle [facility] Work Phone: Radiology Comment on above: Night sweats [R61] Start: 05-02-2025 End: 05-02-2025 ambulatory RICKIE CORNELL Facility:[facility] Start: 04-30-2025 End: 04-30-2025 ambulatory RICKIE KERNSMARIETTA Facility:[facility] Start: 04-28-2025 End: 04-28-2025 Office outpatient visit 25 minutes Rickie Cornell PA-C Work Phone: [facility] Comment on above: Night sweats (Primar y Dx); Photophobia; Headaches; Myalgias; Fatigue, unspecified type; Sinus congestion Start: 04-28-2025 End: 04-28-2025 ambulatory JARED SCHILLING Facility:[facility] Start: 04-25-2025 End: 04-26-2025 Emergency department patient visit JARED SCHILLING Work Phone: -Emergency Department Work Phone: Start: 04-25-2025 End: 04-25-2025 Office outpatient visit 25 minutes Rafael Molina MD Work Phone: [facility] Comment on above: Headache, unspecifie d headache type (Primary Dx); Vertigo; Nausea and vomiting, unspecified vomiting type; Photophobia Start: 04-25-2025 End: 04-25-2025 ambulatory RAFAEL MOLINA Facility:[facility] Start: 04-22-2025 End: 04-22-2025 ambulatory LUZ MARINA MEDEL Facility:[facility] Start: 04-22-2025 End: 04-22-2025 Admission to same day surgery center Luz Marina Medel APRN.CNP Work Phone: General Surgery Comment on above: History of obesity ( Primary Dx) Start: 04-22-2025 End: 04-22-2025 Telemedicine consultation with patient Luz Marina Medel SL[employer] AMBASSADOR Work Phone: General Surgery Start: 04-14-2025 End: 04-14-2025 Refill Jared Schilling MD Work Phone: [facility] Comment on above: Refill Request Start: 04-05-2025 End: 04-05-2025 Refill Jared Schilling MD Work Phone: [facility] Comment on above: Refill Request Start: 04-05-2025 End: 04-05-2025 Admission to same day surgery center Alonso Siu APRN.SLOT AMBASSADOR Work Phone: [facility] Comment on above: Class 1 obesity due to excess calories without serious comorbidity with body mass index (BMI) of 34.0 to 34.9 in adult (Primary Dx) Start: 04-05-2025 End: 04-05-2025 Telemedicine consultation with patient Alonso Siu APRN.SLOT AMBASSADOR Work Phone: [facility] Start: 04-05-2025 End: 04-05-2025 ambulatory [facility] Facility:[facility] Start: 04-01-2025 End: 04-01-2025 Admission to same day surgery center Alonso Tuttlesonnymarry JEFFREY.SLOT AMBASSADOR Work Phone: [facility] Comment on above: Phentermine lapse Start: 04-01-2025 End: 04-01-2025 ambulatory Alonso Sherron MURPHY.SLOT AMBASSADOR Work Phone: [facility] Start: 02-26-2025 End: 02-28-2025 Refill Hollis Castellanos MD Work Phone: [facility] Comment on above: Refill Request Start: 02-16-2025 End: 02-21-2025 ambulatory Henok Campbell MD Work Phone: Urology Start: 01-31-2025 End: 02-01-2025 Refill Azael Daniels PA-C Work Phone: [facility] Comment on above: Refill Request Start: 01-25-2025 End: 03-27-2025 Follow-up encounter Rickie NAGEL-C Work Phone: [facility] Start: 01-24-2025 End: 01-24-2025 ambulatory RICKIE CORNELL Facility:[facility] Start: 01-24-2025 End: 01-24-2025 ambulatory RICKIE CORNELL Facility:[facility] Start: 01-24-2025 End: 01-24-2025 Office outpatient visit 25 minutes Rickie NAGEL-Silas Work Phone: [facility] Comment on above: Gender incongruence (Primary Dx); Hypothyroidism, acquired; Swelling of both hands; Screening for lipid disorders Start: 01-08-2025 End: 01-10-2025 Reftyler Schilling MD Work Phone: [facility] Comment on above: Refill Request Start: 12-16-2024 End: 12-16-2024 Admission to same day surgery center Alonso Siu JEFFREY.SLOT AMBASSADOR Work Phone: [facility] Comment on above: Class 1 obesity due to excess calories without serious comorbidity with body mass index (BMI) of 34.0 to 34.9 in adult (Primary Dx) Start: 12-16-2024 End: 12-16-2024 ambulatory JARED SCHILLING Facility:[facility] Start: 12-16-2024 End: 12-16-2024 Telemedicine consultation with patient Alonso Siu APRN.SL[employer] AMBASSADOR Work Phone: [facility] Start: 12-14-2024 End: 12-14-2024 Admission to same day surgery center Alonso Siu JEFFREY.SLOT AMBASSADOR Work Phone: [facility] Comment on above: Able to squeeze me i n anywhere. Start: 12-14-2024 End: 12-14-2024 ambulatory Alonso Keobi MURPHY.SLOT AMBASSADOR Work Phone: General Surgery Start: 11-27-2024 End: 11-29-2024 Refill Jared Schilling MD Work Phone: [facility] Comment on above: Refill Request Start: 10-18-2024 End: 10-18-2024 ambulatory Jared Schilling MD Work Phone: [facility] Start: 10-18-2024 End: 10-18-2024 Refill Jared Schilling MD Work Phone: [facility] Comment on above: Refill Request Start: 10-16-2024 End: 10-19-2024 Refill Jared Schilling MD Work Phone: [facility] Comment on above: Refill Request Start: 10-05-2024 End: 10-05-2024 Emergency department patient visit Ken Garibay Facility:[facility] Start: 09-08-2024 End: 09-10-2024 Refill Jared Schilling MD Work Phone: [facility] Comment on above: Refill Request Start: 08-23-2024 End: 08-23-2024 Refill Jared Schilling MD Work Phone: [facility] Comment on above: Refill Request Start: 08-20-2024 End: 08-20-2024 Admission to same day surgery center Alonso Siu APRN.[employer] AMB[employer]ADOR Work Phone: [facility] Comment on above: Class 1 obesity due to excess calories without serious comorbidity with body mass index (BMI) of 34.0 to 34.9 in adult (Primary Dx) Start: 08-20-2024 End: 08-20-2024 Telemedicine consultation with patient Alonso Siu APRN.[employer] AM[employer]OR Work Phone: General Surgery Start: 08-20-2024 End: 08-20-2024 ambulatory JARED SCHILLING Facility:[facility] Start: 07-24-2024 End: 07-24-2024 Emergency department patient visit Alfa Puckett Facility:[facility] Start: 07-15-2024 End: 07-15-2024 Refill Kelsie Warner MD Work Phone: [facility] Comment on above: Refill Request Start: 07-07-2024 End: 07-07-2024 Refill Jared Schilling MD Work Phone: [facility] Comment on above: Refill Request Start: 05-27-2024 End: 05-27-2024 Admission to same day surgery center Alonso Siu APRN.SL[employer] AMB[employer]ADOR Work Phone: [facility] Comment on above: Class 1 obesity due to excess calories without serious comorbidity with body mass index (BMI) of 34.0 to 34.9 in adult Start: 05-27-2024 End: 05-27-2024 Telemedicine consultation with patient Alonso Siu APRN.[employer] AM[employer]OR Work Phone: [facility] Start: 05-27-2024 End: 05-27-2024 ambulatory JARED SCHILLING Facility:[facility] Start: 05-25-2024 ambulatory Alonso Del Valle PRN.CNP Work Phone: General Surgery Start: 05-25-2024 Follow-up encounter Alonso tuttle APRN.CNP Work Phone: General Surgery Comment on above: No appointments avai lable for 3 month follow up. Start: 05-18-2024 End: 05-18-2024 Emergency department patient visit Urbandaryl Beckwitho Facility:[facility] Start: 05-18-2024 End: 05-18-2024 ambulatory [facility] Facility:[facility] Start: 05-18-2024 End: 05-18-2024 Patient encounter procedure Elsie NAGEL Work Phone: [facility] Comment on above: Chest pain, unspecif ied type (Primary Dx) Start: 05-18-2024 Refill Jared Schilling MD Work Phone: [facility] [place] Comment on above: Refill Request Start: 05-05-2024 Telephone encounter Bert coy APRN.[employer] AM[employer]OR Work Phone: [facility] Comment on above: Results Start: 05-03-2024 End: 05-03-2024 Patient encounter procedure Rafael Molina MD Work Phone: [facility] Comment on above: Puncture wound of ri ght foot, initial encounter (Primary Dx); Urinary frequency Start: 03-15-2024 Telephone encounter Navneet Dunham MD Work Phone: Plastic Surgery Comment on above: quote Start: 03-12-2024 End: 03-12-2024 Admission to same day surgery center Alonso Siu APRN.SLOT AMBASSADOR Work Phone: General Surgery Comment on above: Class 1 obesity due to excess calories without serious comorbidity with body mass index (BMI) of 34.0 to 34.9 in adult (Primary Dx) Start: 03-12-2024 End: 03-12-2024 Telemedicine consultation with patient Alonso Siu APRN.SLOT AMBASSADOR Work Phone: General Surgery Start: 03-11-2024 Telephone encounter Alonso tuttle APRN.SLOT AMBASSADOR Work Phone: General Surgery Start: 03-05-2024 End: 03-05-2024 Patient encounter procedure Jammie LewisPratimaZheng JEFFREY.SLOT AMBASSADOR Work Phone: [facility] Comment on above: Sore throat (Primary Dx); Bacterial sinusitis; Skin mass Start: 03-03-2024 Admission to [facility] Belen Pandey APRN.SLOT AMBASSADOR Work Phone: Plastic Surgery Comment on above: Trulicity Shortage Start: 03-03-2024 ambulatory Belen Pandey APRN.SLOT AMBASSADOR Work Phone: Plastic Surgery Start: 03-01-2024 Refill Alonso JURADO.SLOT AMBASSADOR Work Phone: General Surgery [facility] Comment on above: Refill Request Start: 02-21-2024 Refill Jared Schilling MD Work Phone: Internal Medicine [place] Comment on above: Refill Request Start: 02-14-2024 Refill Jared Schilling MD Work Phone: Internal [facility] Comment on above: Refill Request Start: 02-11-2024 End: 02-11-2024 Patient encounter procedure Chrisitanne Ren PA-C Work Phone: Plastic Surgery Comment on above: Gender dysphoria (Pr imary Dx) Start: 02-05-2024 End: 02-05-2024 Emergency department [facility] Work Phone: Start: 02-03-2024 End: 02-03-2024 Patient encounter procedure Gil Castro APRN.SLOT AMBASSADOR Work Phone: [facility] Comment on above: Burning with urinati on (Primary Dx) Start: 01-26-2024 End: 01-26-2024 Patient encounter procedure Navneet Dunham MD Work Phone: Plastic Surgery Comment on above: Gender dysphoria (Pr imary Dx); Encounter for cosmetic surgery; Excess skin of neck Start: 01-26-2024 Chart abstracting Navneet Dunham MD Work Phone: Plastic Surgery Comment on above: PHOTOS TAKEN Start: 01-21-2024 End: 01-21-2024 ambulatory Jared Schilling MD Work Phone: [facility] Comment on above: Gender incongruence (Primary Dx); Alopecia; Other specified hypothyroidism Start: 01-21-2024 End: 01-21-2024 Telemedicine consultation with patient Jared Schilling MD Work Phone: [facility] Start: 01-05-2024 Orders Only Alonso Del Valle PRN.SLOT AMBASSADOR Work Phone: [facility] Start: 12-23-2023 End: 12-23-2023 ambulatory Kelsie Warner MD Work Phone: [facility] Comment on above: Gender dysphoria (Pr imary Dx); Anxiety and depression Start: 12-23-2023 End: 12-23-2023 Telemedicine consultation with patient Kelsie Warner MD Work Phone: [facility] Start: 12-09-2023 Refill Alonso Del Valle PRN.SLOT AMBASSADOR Work Phone: General Surgery [facility] Comment on above: Refill Request Trulicity Start: 12-03-2023 Refill Jared Schilling MD Work Phone: [facility] Comment on above: Refill Request Start: 12-02-2023 Refill Jared Schilling MD Work Phone: [facility] Comment on above: Refill Request Start: 11-30-2023 Refill Jared Schilling MD Work Phone: [facility] Comment on above: Refill Request Start: 09-23-2023 Refill Jared Schilling MD Work Phone: [facility] Comment on above: Refill Request Start: 09-11-2023 Refill Kelsie Aguilera Work Phone: [facility] Comment on above: Refill Request Start: 09-10-2023 Refill Jared Schilling MD Work Phone: [facility] Comment on above: Refill Request Start: 09-03-2023 Refill Jared Schilling MD Work Phone: [facility] Comment on above: Refill Request Start: 08-26-2023 End: 08-26-2023 ambulatory Kelsie Warner MD Work Phone: [facility] Comment on above: Anxiety (Primary Dx) Start: 08-26-2023 End: 08-26-2023 Telemedicine consultation with patient Kelsie Warner MD Work Phone: [facility] Start: 08-19-2023 End: 08-19-2023 ambulatory Alonso Siu APRN.SLOT AMBASSADOR Work Phone: General Surgery [facility] Comment on above: Class 1 obesity due to excess calories without serious comorbidity with body mass index (BMI) of 34.0 to 34.9 in adult (Primary Dx) Start: 08-19-2023 End: 08-19-2023 Telemedicine consultation with patient Alonso Siu APRN.SLOT AMBASSADOR Work Phone: [facility] Start: 08-16-2023 Refill Jared Schilling MD Work Phone: [facility] Comment on above: Refill Request Start: 07-04-2023 Refill Jared Schilling MD Work Phone: [facility] Comment on above: Refill Request Start: 06-26-2023 End: 06-26-2023 ambulatory Jared Schilling MD Work Phone: [facility] Comment on above: Acquired hypothyroid ism (Primary Dx); Gender dysphoria; Class 1 obesity with body mass index (BMI) of 33.0 to 33.9 in adult, unspecified obesity type, unspecified whether serious comorbidity present; Anal or rectal pain Start: 06-26-2023 End: 06-26-2023 Telemedicine consultation with patient Jared Schilling MD Work Phone: [facility] Start: 06-25-2023 End: 06-26-2023 [facility] Start: 06-17-2023 Chart abstracting Navneet Dunham MD Work Phone: Plastic Surgery Comment on above: PHOTOS TAKEN Start: 06-12-2023 Refill Jared Schilling MD Work Phone: [facility] Comment on above: Refill Request Start: 06-05-2023 Refill Jared Schilling MD Work Phone: [facility] Comment on above: Refill Request Start: 05-22-2023 End: 05-22-2023 ambulatory Jared Schilling MD Work Phone: [facility] Comment on above: Gender dysphoria (Pr imary Dx) Start: 05-22-2023 End: 05-22-2023 Telemedicine consultation with patient Jared Schilling MD Work Phone: [facility] Start: 05-18-2023 End: 05-18-2023 [facility] Start: 05-14-2023 Refill Jared Schilling MD Work Phone: [facility] Comment on above: Refill Request Start: 05-09-2023 End: 05-09-2023 Subsequent hospital visit by physician [facility] Work Phone: Radiology Comment on above: Recurrent UTI [N39.0 ] Start: 04-30-2023 End: 04-30-2023 Patient encounter procedure Donna Felder APRN.SLOT AMBASSADOR Work Phone: [facility] Comment on above: Dysuria (Primary Dx) Start: 02-24-2023 End: 02-25-2023 [facility] Start: 02-17-2023 End: 02-17-2023 ambulatory Jared Schilling MD Work Phone: [facility] Comment on above: Gender dysphoria (Pr imary Dx) Start: 02-17-2023 End: 02-17-2023 Telemedicine consultation with patient Jared Schilling MD Work Phone: [facility] Start: 02-12-2023 Refill Jared Schilling MD Work Phone: [facility] Comment on above: Refill Request Start: 02-04-2023 Refill Jared Schilling MD Work Phone: [facility] Comment on above: Refill Request Start: 01-13-2023 End: 01-13-2023 ambulatory Jared Schilling MD Work Phone: [facility] Comment on above: Insomnia, unspecifie d type (Primary Dx); Anxiety and depression Start: 01-13-2023 End: 01-13-2023 Telemedicine consultation with patient Jared Schilling MD Work Phone: [facility] Start: 01-06-2023 End: 01-07-2023 Emergency department patient visit [facility] Start: 12-20-2022 Refill Jared Schilling MD Work Phone: [facility] Comment on above: Refill Request Start: 12-06-2022 End: 12-06-2022 Patient encounter procedure Elsie NAGEL Work Phone: [facility] Comment on above: Burning with urinati on (Primary Dx) Start: 12-05-2022 ambulatory Jared Schilling MD Work Phone: [facility] Comment on above: Bladder infection UTI Start: 12-02-2022 Refill Jared Schilling MD Work Phone: [facility] Comment on above: Refill Request Start: 11-21-2022 End: 11-21-2022 ambulatory Jared Schilling MD Work Phone: [facility] Comment on above: Gender dysphoria (Pr imary Dx); Anxiety and depression Start: 11-21-2022 End: 11-21-2022 Telemedicine consultation with patient Jared Schilling MD Work Phone: [facility] Start: 11-05-2022 End: 11-05-2022 Patient encounter procedure Navneet Dunham MD Work Phone: Plastic Surgery Comment on above: Gender dysphoria (Pr imary Dx) Start: 11-05-2022 Chart abstracting Navneet Dunham MD Work Phone: Plastic Surgery Comment on above: PHOTOS TAKEN Start: 10-20-2022 Reftyler Schilling MD Work Phone: [facility] Comment on above: Refill Request Start: 08-29-2022 Refill Jared Schilling MD Work Phone: [facility] Comment on above: Refill Request Start: 08-28-2022 Refill Jared Schilling MD Work Phone: [facility] Comment on above: Refill Request Start: 07-09-2022 End: 07-09-2022 Patient encounter procedure Navneet Dunham MD Work Phone: Plastic Surgery Comment on above: Post-operative state (Primary Dx) Start: 07-09-2022 Chart abstracting Navneet Dunham MD Work Phone: Plastic Surgery Comment on above: PHOTOS TAKEN Start: 06-30-2022 Refill Jared Schilling MD Work Phone: [facility] Comment on above: Refill Request Start: 06-24-2022 ambulatory Jared Schilling MD Work Phone: [facility] Comment on above: Nurse Triage Call; U TI Start: 06-11-2022 Telephone encounter Navneet Dunham MD Work Phone: Plastic Surgery Comment on above: Patient Question (Sc ab fell off ) Start: 06-08-2022 Refill Jared Schilling MD Work Phone: [facility] Comment on above: Refill Request Start: 05-27-2022 End: 05-27-2022 Patient encounter procedure Navneet Dunham MD Work Phone: Plastic Surgery Comment on above: Post-operative state (Primary Dx) Start: 05-27-2022 Chart abstracting Navneet Dunham MD Work Phone: Plastic Surgery Comment on above: PHOTOS TAKEN Start: 05-22-2022 Refill Navneet Dunham MD Work Phone: Plastic Surgery Comment on above: Refill Request Start: 05-21-2022 End: 05-21-2022 Patient encounter procedure Navneet Dunham MD Work Phone: Plastic Surgery Comment on above: Post-operative state (Primary Dx) Start: 05-16-2022 Patient Msg Navneet Dunham MD Work Phone: Plastic Surgery Comment on above: Refill Start: 05-15-2022 Telephone encounter Navneet Dunham MD Work Phone: Plastic Surgery Comment on above: Medication Request ( Zofran request ) Post-operative state (Primary Dx) Start: 05-14-2022 Refill Jared Schilling MD Work Phone: [facility] Comment on above: Refill Request Start: 05-13-2022 ambulatory Shabnam Gomez RN [facility] Start: 05-13-2022 End: 05-13-2022 Patient encounter procedure Navneet Dunham MD Work Phone: Plastic Surgery Comment on above: Post-operative state (Primary Dx) Transition Of Care ( TCM Initial Outreach: [facility] 05/11/22, gender dysphoria) Start: 05-12-2022 ambulatory Liza LYLES [facility] Comment on above: Post Op (Pain) Start: 05-12-2022 Telephone encounter Yina leal MD Work Phone: Plastic Surgery Comment on above: Patient Question Start: 05-11-2022 ambulatory Liza [facility] Comment on above: Medication Problem Start: 05-06-2022 Telephone encounter Navneet Dunham MD Work Phone: Plastic Surgery Comment on above: Question Start: 04-22-2022 End: 04-22-2022 ambulatory Jared Schilling MD Work Phone: [facility] Comment on above: Gender dysphoria (Pr imary Dx); Anxiety and depression; Dyspepsia Start: 04-22-2022 End: 04-22-2022 Telemedicine consultation with patient Jared Schilling MD Work Phone: [facility] Start: 04-22-2022 Telephone encounter Navneet Dunham MD Work Phone: Plastic Surgery Comment on above: Question (Confirm la bs and surgery ) Start: 04-16-2022 Orders Only Matt aguilera PA-C Work Phone: Plastic Surgery Comment on above: Low hemoglobin (Prim lanie Dx) Start: 04-13-2022 ambulatory Jared Schilling MD Work Phone: [facility] Comment on above: Estrogen levels decl ine. Start: 04-12-2022 End: 04-12-2022 Admission to [facility] 1 Work Phone: [facility] Start: 04-12-2022 End: 04-12-2022 [facility] 1 Work Phone: Pre Anesthesia Comment on above: Preoperative examina tion (Primary Dx); Nasal valve collapse; Nasal septal deviation; Gender dysphoria; Acquired hypothyroidism; Anxiety and depression Start: 04-12-2022 End: 04-12-2022 Preprocedural examination done [place] [id number] Work Phone: Pre Anesthesia Start: 04-08-2022 Refill Jared Schilling MD Work Phone: [facility] Comment on above: Refill Request Start: 03-25-2022 End: 03-25-2022 Patient encounter procedure Navneet Dunham MD Work Phone: Plastic Surgery Comment on above: Gender dysphoria (Pr imary Dx); Nasal valve collapse; Nasal septal deviation Start: 02-25-2022 Refill Jared Schilling MD Work Phone: [facility] Comment on above: Refill Request Start: 02-11-2022 End: 02-11-2022 Emergency department patient visit [facility] Start: 01-03-2022 Telephone encounter Jared Aguilera Work Phone: [facility] Comment on above: Appointment (Schedul e follow up) Start: 11-26-2021 End: 11-26-2021 Subsequent hospital visit by physician [facility] Work Phone: Radiology Comment on above: Lumbar spine pain [M 54.50] Start: 05-31-2021 End: 05-31-2021 Subsequent hospital visit by physician [facility] Work Phone: Radiology Comment on above: Facial pain [R51.9] Procedures Date Procedure Procedure Detail Performing Clinician Start: 05-02-2025 Radiologic exam ches t 2 views Rickie Cornell PA-C Work Phone: Start: 04-25-2025 Estimated creatinine clearance JARED SCHILLING Work Phone: Start: 04-25-2025 CT of head without contrast JARED SCHILLING Work Phone: Start: 05-03-2024 Urnls dip stick/tabl et rgnt auto w/o microscopy Donna Felder VIDEO TAPE EDITOR.SLOT AMBASSADOR Work Phone: Start: 03-05-2024 STREP A MOLECULAR (POC) Jammie Da Silva VIDEO TAPE EDITOR.SLOT AMBASSADOR Work Phone: Start: 02-05-2024 Plain chest X-ray Start: 02-05-2024 CT of head without contrast Start: 02-03-2024 Urnls dip stick/tabl et rgnt auto w/o microscopy Kim Mehta PA-C Work Phone: Start: 06-25-2023 CT of pelvis with contrast Start: 05-18-2023 Radiography of foot Start: 05-09-2023 Us retroperitoneal r eal time w/image complete Jared Schilling MD Work Phone: Start: 04-30-2023 Urnls dip stick/tabl et rgnt auto w/o microscopy Donna Felder VIDEO TAPE EDITOR.SLOT AMBASSADOR Work Phone: Start: 02-25-2023 Plain x-ray of wrist Start: 02-25-2023 X-ray of radius and ulna Start: 01-06-2023 CT of face Start: 12-06-2022 Urnls dip stick/tabl et rgnt auto w/o microscopy Janessa Ledezma VIDEO TAPE EDITOR.SLOT AMBASSADOR Work Phone: Start: 02-11-2022 X-ray of both feet Start: 11-26-2021 Radex spine lumbosac ral 2/3 views Donna Felder VIDEO TAPE EDITOR.SLOT AMBASSADOR Work Phone: Start: 05-31-2021 Ct maxillofacial w/o contrast material Leslie Ospina VIDEO TAPE EDITOR.SLOT AMBASSADOR Work Phone: Start: 09-14-2020 Adult depression scr eening assessment Jared Schilling MD Work Phone: Start: 07-23-2019 Lipid 1996 panel - S jefferson or Plasma Jared Schilling MD Work Phone: Plan of Treatment Date Care Activity Detail Author Start: 02-12-2032 Urine microalbumin profile [facility] Start: 06-14-2027 Urine microalbumin profile DTAP,TDAP,TD (2 - Td or Tdap) [facility] Start: 04-28-2026 Annual PCP Team Dust Operator nichelle Disease Visit Annual PCP Team Chronic Disease Visit [facility] Start: 01-24-2026 Annual PCP Team Dust Operator nichelle Disease Visit Annual PCP Team Chronic Disease Visit [facility] Start: 07-26-2025 End: 10-25-2025 Basic metabolic 2000 panel - Serum or Plasma BASIC METABOLIC PANEL Lab Routine Gender incongruence Expected: 07/26/2025, Expires: 10/25/2025 [facility] Comment on above: Expected: 07/26/2025 , Expires: 10/25/2025 Start: 07-26-2025 End: 10-25-2025 CBC W Auto Differential panel - Blood COMPLETE BLOOD COUNT AND DIFFERENTIAL Lab Routine Gender incongruence Expected: 07/26/2025, Expires: 10/25/2025 [facility] Comment on above: Expected: 07/26/2025 , Expires: 10/25/2025 Start: 07-26-2025 End: 10-25-2025 Estradiol (E2) [Mass/volume] in Serum or Plasma ESTRADIOL-17B BLD Lab Routine Gender incongruence Expected: 07/26/2025, Expires: 10/25/2025 [facility] Comment on above: Expected: 07/26/2025 , Expires: 10/25/2025 Start: 07-26-2025 End: 10-25-2025 Testosterone [Mass/volume] in Serum or Plasma TESTOSTERONE, TOTAL BY IMMUNOASSAY (ADULT MALES, OR INDIVIDUALS ON TESTOSTERONE THERAPY) Lab Routine Gender incongruence Expected: 07/26/2025, Expires: 10/25/2025 [facility] Comment on above: Expected: 07/26/2025 , Expires: 10/25/2025 Start: 06-13-2025 Influenza vaccination [facility] Start: 05-04-2025 End: 08-03-2025 Thyrotropin [Units/volume] in Serum or Plasma THYROID STIMULATING HORMONE Lab Routine Elevated TSH Expected: 05/04/2025, Expires: 08/03/2025 [facility] Work Phone: Comment on above: Expected: 05/04/2025 , Expires: 08/03/2025 Start: 05-04-2025 End: 08-03-2025 Thyroxine (T4) free [Mass/volume] in Serum or Plasma T4 FREE/FREE THYROXINE Lab Routine Elevated TSH Expected: 05/04/2025, Expires: 08/03/2025 [facility] Comment on above: Expected: 05/04/2025 , Expires: 08/03/2025 Start: 05-04-2025 End: 08-03-2025 Triiodothyronine (T3) [Mass/volume] in Serum or Plasma T3 Lab Routine Elevated TSH Expected: 05/04/2025, Expires: 08/03/2025 [facility] Comment on above: Expected: 05/04/2025 , Expires: 08/03/2025 Start: 04-28-2025 End: 07-28-2025 THERESA BY IFA WITH REFLEX THERESA BY IFA WITH REFLEX Lab Routine Myalgias Fatigue, unspecified type Expected: 04/28/2025, Expires: 07/28/2025 [facility] Comment on above: Expected: 04/28/2025 , Expires: 07/28/2025 Start: 04-28-2025 End: 07-28-2025 BLOOD TB SCREEN BLOOD TB SCREEN Lab Routine Night sweats Fatigue, unspecified type Expected: 04/28/2025, Expires: 07/28/2025 [facility] Comment on above: Expected: 04/28/2025 , Expires: 07/28/2025 Start: 04-28-2025 End: 07-28-2025 Borrelia burgdorferi IgG and IgM panel - Serum LYME AB EARLY <=30 DAY SYMPTOMS Lab Routine Night sweats Expected: 04/28/2025, Expires: 07/28/2025 [facility] Comment on above: Expected: 04/28/2025 , Expires: 07/28/2025 Start: 04-28-2025 End: 07-28-2025 C reactive protein [Mass/volume] in Serum or Plasma C-REACTIVE PROTEIN Lab Routine Myalgias Fatigue, unspecified type Expected: 04/28/2025, Expires: 07/28/2025 [facility] Comment on above: Expected: 04/28/2025 , Expires: 07/28/2025 Start: 04-28-2025 End: 07-28-2025 CBC W Auto Differential panel - Blood COMPLETE BLOOD COUNT AND DIFFERENTIAL Lab Routine Night sweats Expected: 04/28/2025, Expires: 07/28/2025 [facility] Comment on above: Expected: 04/28/2025 , Expires: 07/28/2025 Start: 04-28-2025 End: 07-28-2025 Comprehensive metabolic 2000 panel - Serum or Plasma COMPREHENSIVE METABOLIC PANEL Lab Routine Night sweats Expected: 04/28/2025, Expires: 07/28/2025 [facility] Comment on above: Expected: 04/28/2025 , Expires: 07/28/2025 Start: 04-28-2025 End: 07-28-2025 Creatine kinase [Enzymatic activity/volume] in Serum or Plasma CREATINE KINASE/CK Lab Routine Myalgias Expected: 04/28/2025, Expires: 07/28/2025 [facility] Comment on above: Expected: 04/28/2025 , Expires: 07/28/2025 Start: 04-28-2025 End: 07-28-2025 Cyclic citrullinated peptide IgG Ab [Units/volume] in Serum or Plasma CCP ANTIBODY IGG Lab Routine Myalgias Fatigue, unspecified type Expected: 04/28/2025, Expires: 07/28/2025 [facility] Comment on above: Expected: 04/28/2025 , Expires: 07/28/2025 Start: 04-28-2025 End: 07-28-2025 CYTOMEGALOVIRUS (CMV) DNA, QUANTITATIVE PCR, PLASMA CYTOMEGALOVIRUS (CMV) DNA, QUANTITATIVE PCR, PLASMA Lab Routine Night sweats Expected: 04/28/2025, Expires: 07/28/2025 [facility] Comment on above: Expected: 04/28/2025 , Expires: 07/28/2025 Start: 04-28-2025 End: 07-28-2025 Cytomegalovirus IgG Ab [Units/volume] in Serum or Plasma CMV IGG ANTIBODY BL Lab Routine Night sweats Expected: 04/28/2025, Expires: 07/28/2025 [facility] Comment on above: Expected: 04/28/2025 , Expires: 07/28/2025 Start: 04-28-2025 End: 07-28-2025 Cytomegalovirus IgM Ab [Units/volume] in Serum or Plasma CMV IGM AB Lab Routine Night sweats Expected: 04/28/2025, Expires: 07/28/2025 [facility] Comment on above: Expected: 04/28/2025 , Expires: 07/28/2025 Start: 04-28-2025 End: 07-28-2025 RIAZ VARGAS PANEL RIAZ VARGAS PANEL Lab Routine Night sweats Headaches Myalgias Fatigue, unspecified type Expected: 04/28/2025, Expires: 07/28/2025 [facility] Comment on above: Expected: 04/28/2025 , Expires: 07/28/2025 Start: 04-28-2025 End: 07-28-2025 Erythrocyte sedimentation rate SEDIMENTATION RATE, WESTERGREN Lab Routine Myalgias Fatigue, unspecified type Expected: 04/28/2025, Expires: 07/28/2025 [facility] Comment on above: Expected: 04/28/2025 , Expires: 07/28/2025 Start: 04-28-2025 End: 07-28-2025 Heterophile Ab [Presence] in Serum by Latex agglutination MONOTEST, INFECTIOUS MONO Lab Routine Night sweats Expected: 04/28/2025, Expires: 07/28/2025 [facility] Comment on above: Expected: 04/28/2025 , Expires: 07/28/2025 Start: 04-28-2025 End: 07-28-2025 Rheumatoid factor [Units/volume] in Serum or Plasma RHEUMATOID FACTOR Lab Routine Myalgias Fatigue, unspecified type Expected: 04/28/2025, Expires: 07/28/2025 [facility] Comment on above: Expected: 04/28/2025 , Expires: 07/28/2025 Start: 04-28-2025 End: 07-28-2025 Thyrotropin [Units/volume] in Serum or Plasma THYROID STIMULATING HORMONE Lab Routine Night sweats Expected: 04/28/2025, Expires: 07/28/2025 [facility] Work Phone: Comment on above: Expected: 04/28/2025 , Expires: 07/28/2025 Start: 04-28-2025 End: 07-28-2025 Thyroxine (T4) free [Mass/volume] in Serum or Plasma T4 FREE/FREE THYROXINE Lab Routine Night sweats Expected: 04/28/2025, Expires: 07/28/2025 [facility] Comment on above: Expected: 04/28/2025 , Expires: 07/28/2025 Start: 04-28-2025 End: 07-28-2025 Triiodothyronine (T3) [Mass/volume] in Serum or Plasma T3 Lab Routine Night sweats Expected: 04/28/2025, Expires: 07/28/2025 [facility] Comment on above: Expected: 04/28/2025 , Expires: 07/28/2025 Start: 04-28-2025 End: 07-28-2025 Urinalysis complete panel - Urine URINALYSIS (WITH MICROSCOPIC) WITH CULTURE IF INDICATED Lab Routine Night sweats Expected: 04/28/2025, Expires: 07/28/2025 [facility] Comment on above: Expected: 04/28/2025 , Expires: 07/28/2025 Start: 04-26-2025 [facility] Start: 04-22-2025 End: 04-22-2025 [facility] Comment on above: medication refill Start: 01-24-2025 End: 04-25-2025 Lipid 1996 panel - Serum or Plasma LIPID PANEL, FASTING Lab Routine Screening for lipid disorders Expected: 01/24/2025, Expires: 04/25/2025 [facility] Comment on above: Expected: 01/24/2025 , Expires: 04/25/2025 Start: 01-24-2025 End: 04-25-2025 Testosterone [Mass/volume] in Serum or Plasma [facility] Work Phone: Comment on above: Expected: 01/24/2025 , Expires: 04/25/2025 Start: 01-20-2025 Annual PCP Team Dust Operator nichelle Disease Visit Annual PCP Team Chronic Disease Visit [facility] Start: 12-22-2024 Annual PCP Team Dust Operator nichelle Disease Visit Annual PCP Team Chronic Disease Visit [facility] Start: 12-16-2024 End: 12-16-2024 Follow-up encounter 12/16/2024 4:00 PM [facility] [address] [place] [address] Alonso Siu APRN.SLOT AMBASSADOR [address] [place] [address] follow up [facility] Comment on above: follow up Start: 10-18-2024 End: 01-17-2025 Basic metabolic 2000 panel - Serum or Plasma BASIC METABOLIC PANEL Lab Routine Gender incongruence Expected: 10/18/2024, Expires: 01/17/2025 [facility] Comment on above: Expected: 10/18/2024 , Expires: 01/17/2025 Start: 10-18-2024 End: 01-17-2025 CBC W Auto Differential panel - Blood COMPLETE BLOOD COUNT AND DIFFERENTIAL Lab Routine Gender incongruence Expected: 10/18/2024, Expires: 01/17/2025 [facility] Comment on above: Expected: 10/18/2024 , Expires: 01/17/2025 Start: 10-18-2024 End: 01-17-2025 Estradiol (E2) [Mass/volume] in Serum or Plasma ESTRADIOL-17B BLD Lab Routine Gender incongruence Expected: 10/18/2024, Expires: 01/17/2025 [facility] Comment on above: Expected: 10/18/2024 , Expires: 01/17/2025 Start: 10-18-2024 End: 01-17-2025 Testosterone [Mass/volume] in Serum or Plasma TESTOSTERONE, TOTAL BY IMMUNOASSAY (ADULT MALES, OR INDIVIDUALS ON TESTOSTERONE THERAPY) Lab Routine Gender incongruence Expected: 10/18/2024, Expires: 01/17/2025 [facility] Work Phone: Comment on above: Expected: 10/18/2024 , Expires: 01/17/2025 Start: 08-26-2024 Annual PCP Team Dust Operator nichelle Disease Visit Annual PCP Team Chronic Disease Visit [facility] Start: 08-20-2024 End: 08-20-2024 Admission to same day surgery center 08/20/2024 11:00 AM [facility] General Surgery [address], [place] [id number] Alonso Siu, JEFFREY.SLOT AMBASSADOR [address] [place], [place] [id number] Medical Weight General Surgery Comment on above: Medical Weight Start: 07-23-2024 Lipid 1996 panel - S jefferson or Plasma Lipid Screening [facility] Start: 07-23-2024 Lipid panel Lipid Screening [facility] Start: 07-23-2024 LIPID SCREEN LIPID SCREEN [facility] Start: 07-16-2024 Annual PCP Team Dust Operator nichelle Disease Visit Annual PCP Team Chronic Disease Visit [facility] Start: 07-16-2024 Covid-19 Vaccine ( season) Covid-19 Vaccine ( season) [facility] Comment on above: Postponed from 06/13 (Declined at this time) Start: 06-26-2024 Annual PCP Team Dust Operator nichelle Disease Visit Annual PCP Team Chronic Disease Visit [facility] Start: 06-13-2024 Covid-19 Vaccine ( season) Covid-19 Vaccine ( season) [facility] Start: 06-13-2024 Influenza vaccination [facility] Start: 05-22-2024 ANNUAL PCP TEAM GENERAL SERVICE TECHNICIAN NICHELLE DISEASE VISIT ANNUAL PCP TEAM CHRONIC DISEASE VISIT [facility] Start: 05-05-2024 ANNUAL PCP TEAM GENERAL SERVICE TECHNICIAN NICHELLE DISEASE VISIT ANNUAL PCP TEAM CHRONIC DISEASE VISIT [facility] Start: 04-11-2024 Influenza vaccination Influenza Vacc ine (#1) [facility] Comment on above: Postponed from 06/13 (Declined at this time) Start: 03-24-2024 End: 06-23-2024 Comprehensive metabolic 2000 panel - Serum or Plasma COMP METABOLIC PANEL Lab Routine Gender dysphoria Expected: 03/24/2024, Expires: 06/23/2024 [facility] Work Phone: Comment on above: Expected: 03/24/2024 , Expires: 06/23/2024 Start: 03-24-2024 End: 06-23-2024 Estradiol (E2) [Mass/volume] in Serum or Plasma ESTRADIOL-17B BLD Lab Routine Gender dysphoria Expected: 03/24/2024, Expires: 06/23/2024 [facility] Work Phone: Comment on above: Expected: 03/24/2024 , Expires: 06/23/2024 Start: 03-24-2024 End: 06-23-2024 Testosterone [Mass/volume] in Serum or Plasma TESTOSTERONE TOTAL Lab Routine Gender dysphoria Expected: 03/24/2024, Expires: 06/23/2024 [facility] Work Phone: Comment on above: Expected: 03/24/2024 , Expires: 06/23/2024 Start: 03-12-2024 End: 03-12-2024 Admission to same day surgery center 03/12/2024 3:00 PM EDT [facility] Surgery [address], [place] [id number] Alonso Siu APRN.SLOT AMBASSADOR [address] [place] [address] per Alonso [facility] Comment on above: per Alonso Start: 03-07-2024 Subsequent hospital visit by physician 03/07/2024 Hospital Encounter Surgery Center [address] [address] Navneet Russ MD [address] [place] [address] Gender dysphoria [F64.9] Surgery Center Comment on above: Gender dysphoria [F6 4.9] Start: 02-23-2024 End: 02-23-2024 ambulatory Internal [facility] [place] Comment on above: Gender care Start: 02-18-2024 ANNUAL PCP TEAM GENERAL SERVICE TECHNICIAN NICHELLE DISEASE VISIT ANNUAL PCP TEAM CHRONIC DISEASE VISIT [facility] Start: 02-11-2024 End: 02-11-2024 Patient encounter procedure 02/11/2024 3:00 PM EDT Office Visit Plastic Surgery [address] [address] Christianne Ren PA-C [address] [place] [address] Consult for LHR / transgender/ Insurance Plastic Surgery Comment on above: Consult for LHR / tr ansgender/ Insurance Start: 02-05-2024 [facility] Start: 01-21-2024 End: 04-21-2024 Thyrotropin [Units/volume] in Serum or Plasma THYROID STIMULATING HORMONE Lab Routine Alopecia Other specified hypothyroidism Expected: 01/21/2024, Expires: 04/21/2024 [facility] Work Phone: Comment on above: Expected: 01/21/2024 , Expires: 04/21/2024 Start: 01-21-2024 End: 04-21-2024 Thyroxine (T4) free [Mass/volume] in Serum or Plasma T4 FREE/FREE THYROXINE Lab Routine Alopecia Other specified hypothyroidism Expected: 01/21/2024, Expires: 04/21/2024 [facility] Work Phone: Comment on above: Expected: 01/21/2024 , Expires: 04/21/2024 Start: 01-21-2024 End: 04-21-2024 Triiodothyronine (T3) [Mass/volume] in Serum or Plasma T3 Lab Routine Alopecia Other specified hypothyroidism Expected: 01/21/2024, Expires: 04/21/2024 [facility] Work Phone: Comment on above: Expected: 01/21/2024 , Expires: 04/21/2024 Start: 01-14-2024 ANNUAL PCP TEAM GENERAL SERVICE TECHNICIAN NICHELLE DISEASE VISIT ANNUAL PCP TEAM CHRONIC DISEASE VISIT [facility] Start: 11-21-2023 ANNUAL PCP TEAM GENERAL SERVICE TECHNICIAN NICHELLE DISEASE VISIT ANNUAL PCP TEAM CHRONIC DISEASE VISIT [facility] Start: 11-21-2023 End: 01-21-2024 Basic metabolic 2000 panel - Serum or Plasma BASIC METABOLIC PNL Lab Routine Gender dysphoria Expected: 11/21/2023, Expires: 01/21/2024 [facility] Work Phone: Comment on above: Expected: 11/21/2023 , Expires: 01/21/2024 Start: 11-21-2023 End: 01-21-2024 CBC W Auto Differential panel - Blood CBC + DIFF Lab Routine Gender dysphoria Expected: 11/21/2023, Expires: 01/21/2024 [facility] Work Phone: Comment on above: Expected: 11/21/2023 , Expires: 01/21/2024 Start: 11-21-2023 End: 01-21-2024 Estradiol (E2) [Mass/volume] in Serum or Plasma ESTRADIOL-17B BLD Lab Routine Gender dysphoria Expected: 11/21/2023, Expires: 01/21/2024 [facility] Work Phone: Comment on above: Expected: 11/21/2023 , Expires: 01/21/2024 Start: 11-21-2023 End: 01-21-2024 Testosterone [Mass/volume] in Serum or Plasma TESTOSTERONE TOTAL Lab Routine Gender dysphoria Expected: 11/21/2023, Expires: 01/21/2024 [facility] Work Phone: Comment on above: Expected: 11/21/2023 , Expires: 01/21/2024 Start: 06-26-2023 End: 08-26-2023 Thyrotropin [Units/volume] in Serum or Plasma TSH BLD Lab Routine Acquired hypothyroidism Expected: 06/26/2023, Expires: 08/26/2023 [facility] Work Phone: Comment on above: Expected: 06/26/2023 , Expires: 08/26/2023 Start: 06-26-2023 End: 08-26-2023 Thyroxine (T4) free [Mass/volume] in Serum or Plasma T4 FREE/FREE THYROX Lab Routine Acquired hypothyroidism Expected: 06/26/2023, Expires: 08/26/2023 [facility] Work Phone: Comment on above: Expected: 06/26/2023 , Expires: 08/26/2023 Start: 06-26-2023 End: 08-26-2023 Triiodothyronine (T3) [Mass/volume] in Serum or Plasma T3 BLD Lab Routine Acquired hypothyroidism Expected: 06/26/2023, Expires: 08/26/2023 [facility] Work Phone: Comment on above: Expected: 06/26/2023 , Expires: 08/26/2023 Start: 06-13-2023 Influenza vaccination [facility] Start: 04-22-2023 ANNUAL PCP TEAM GENERAL SERVICE TECHNICIAN NICHELLE DISEASE VISIT ANNUAL PCP TEAM CHRONIC DISEASE VISIT [facility] Start: 10-23-2022 End: 12-23-2022 Basic metabolic 2000 panel - Serum or Plasma BASIC METABOLIC PNL Lab Routine Gender dysphoria Expected: 10/23/2022, Expires: 12/23/2022 [facility] Work Phone: Comment on above: Expected: 10/23/2022 , Expires: 12/23/2022 Start: 10-23-2022 End: 12-23-2022 CBC W Auto Differential panel - Blood CBC + DIFF Lab Routine Gender dysphoria Expected: 10/23/2022, Expires: 12/23/2022 [facility] Work Phone: Comment on above: Expected: 10/23/2022 , Expires: 12/23/2022 Start: 10-23-2022 End: 12-23-2022 Estradiol (E2) [Mass/volume] in Serum or Plasma ESTRADIOL-17B BLD Lab Routine Gender dysphoria Expected: 10/23/2022, Expires: 12/23/2022 [facility] Work Phone: Comment on above: Expected: 10/23/2022 , Expires: 12/23/2022 Start: 10-23-2022 End: 12-23-2022 Testosterone [Mass/volume] in Serum or Plasma TESTOSTERONE TOTAL Lab Routine Gender dysphoria Expected: 10/23/2022, Expires: 12/23/2022 [facility] Work Phone: Comment on above: Expected: 10/23/2022 , Expires: 12/23/2022 Start: 09-04-2022 ANNUAL PCP TEAM GENERAL SERVICE TECHNICIAN NICHELLE DISEASE VISIT ANNUAL PCP TEAM CHRONIC DISEASE VISIT [facility] Start: 06-24-2022 End: 08-24-2022 Bacteria identified in Urine by Culture URINE CULTURE Microbiology Routine Abnormal urine odor Expected: 06/24/2022, Expires: 08/24/2022 [facility] Work Phone: Comment on above: Expected: 06/24/2022 , Expires: 08/24/2022 Start: 06-24-2022 End: 08-24-2022 Urinalysis complete panel - Urine URINALYSIS, WITH MICROSCOPIC Lab Routine Abnormal urine odor Expected: 06/24/2022, Expires: 08/24/2022 [facility] Work Phone: Comment on above: Expected: 06/24/2022 , Expires: 08/24/2022 Start: 06-13-2022 Influenza vaccination [facility] Start: 04-08-2022 End: 03-25-2023 aPTT in Platelet poor plasma by Coagulation assay ACTIVATED PTT Lab Routine Gender dysphoria Nasal valve collapse Nasal septal deviation Expected: 04/08/2022 (Approximate), Expires: 03/25/2023 [facility] Work Phone: Comment on above: Expected: 04/08/2022 (Approximate), Expires: 03/25/2023 Start: 04-08-2022 End: 03-25-2023 CBC W Auto Differential panel - Blood CBC + DIFF Lab Routine Gender dysphoria Nasal valve collapse Nasal septal deviation Expected: 04/08/2022 (Approximate), Expires: 03/25/2023 [facility] Work Phone: Comment on above: Expected: 04/08/2022 (Approximate), Expires: 03/25/2023 Start: 04-08-2022 End: 03-25-2023 Chronic hepatitis differentiation between hepatitis B and C virus panel - Serum or Plasma HEP REMOTE PANEL BL Lab Routine Gender dysphoria Nasal valve collapse Nasal septal deviation Expected: 04/08/2022 (Approximate), Expires: 03/25/2023 [facility] Work Phone: Comment on above: Expected: 04/08/2022 (Approximate), Expires: 03/25/2023 Start: 04-08-2022 End: 03-25-2023 Comprehensive metabolic 2000 panel - Serum or Plasma COMP METABOLIC PANEL Lab Routine Gender dysphoria Nasal valve collapse Nasal septal deviation Expected: 04/08/2022 (Approximate), Expires: 03/25/2023 [facility] Work Phone: Comment on above: Expected: 04/08/2022 (Approximate), Expires: 03/25/2023 Start: 04-08-2022 End: 03-25-2023 Hemoglobin A1c in Blood HGB A1C Lab Routine Gender dysphoria Nasal valve collapse Nasal septal deviation Expected: 04/08/2022 (Approximate), Expires: 03/25/2023 [facility] Work Phone: Comment on above: Expected: 04/08/2022 (Approximate), Expires: 03/25/2023 Start: 04-08-2022 End: 03-25-2023 HEP ACUTE PANEL/RNA HEP ACUTE PANEL/RNA Lab Routine Gender dysphoria Nasal valve collapse Nasal septal deviation Expected: 04/08/2022 (Approximate), Expires: 03/25/2023 [facility] Work Phone: Comment on above: Expected: 04/08/2022 (Approximate), Expires: 03/25/2023 Start: 04-08-2022 End: 03-25-2023 HIV 1+2 Ab [Presence] in Serum or Plasma by Immunoassay HIV 1 2 COMBO(AG/AB),WITH REFLEX TO DIFFERENTIATION Lab Routine Gender dysphoria Nasal valve collapse Nasal septal deviation Expected: 04/08/2022 (Approximate), Expires: 03/25/2023 [facility] Work Phone: Comment on above: Expected: 04/08/2022 (Approximate), Expires: 03/25/2023 Start: 04-08-2022 End: 03-25-2023 NICOTINE/COTININE NICOTINE/COTININE Lab Routine Gender dysphoria Nasal valve collapse Nasal septal deviation Expected: 04/08/2022 (Approximate), Expires: 03/25/2023 [facility] Work Phone: Comment on above: Expected: 04/08/2022 (Approximate), Expires: 03/25/2023 Start: 04-08-2022 End: 03-25-2023 TYPE AND SCREEN,30 DAY TYPE AND SCREEN,30 DAY Blood Bank Routine Gender dysphoria Nasal valve collapse Nasal septal deviation Expected: 04/08/2022 (Approximate), Expires: 03/25/2023 [facility] Work Phone: Comment on above: Expected: 04/08/2022 (Approximate), Expires: 03/25/2023 Start: 03-25-2022 End: 03-25-2023 PT panel - Platelet poor plasma by Coagulation assay PROTHROMBIN TIME/PT Lab Routine Gender dysphoria Nasal valve collapse Nasal septal deviation Expected: 03/25/2022, Expires: 03/25/2023 [facility] Work Phone: Comment on above: Expected: 03/25/2022 , Expires: 03/25/2023 Start: 03-25-2022 End: 03-25-2023 SARS-CoV-2 (COVID-19) RNA [Presence] in Respiratory specimen by JUVE with probe detection PRE-PROCEDURE & PRE-OPERATIVE COVID Microbiology Routine Gender dysphoria Nasal valve collapse Expected: 03/25/2022, Expires: 03/25/2023 [facility] Work Phone: Comment on above: Expected: 03/25/2022 , Expires: 03/25/2023 Start: 09-14-2021 Adult depression screening assessment DEPRESSION SCREENING [facility] Start: 07-26-2021 COVID-19 VACCINE (3 - Booster for Moderna series) COVID-19 VACCINE (3 - Booster for Moderna series) [facility] Start: 06-13-2021 Influenza vaccination INFLUENZA (#1) [facility] Start: 04-20-2021 COVID-19 VACCINE (3 - Booster for Moderna series) COVID-19 VACCINE (3 - Booster for Moderna series) [facility] Start: 04-20-2021 COVID-19 VACCINE (3 - Moderna series) COVID-19 VACCINE (3 - Moderna series) [facility] Start: 1999 Hepatitis B Vaccine (1 of 3 - 19+ 3-dose series) Hepatitis B Vaccine (1 of 3 - 19+ 3-dose series) [facility] Start: 1980 HEPATITIS B (1 of 3 - 3-dose series) HEPATITIS B (1 of 3 - 3-dose series) [facility] Start: 1980 Hepatitis B Vaccine (1 of 3 - 3-dose series) Hepatitis B Vaccine (1 of 3 - 3-dose series) [facility] Bacteria identified in Urine by Culture URINE CULTURE Microbiology Routine Burning with urination Ordered: 12/06/2022 [facility] Work Phone: Comment on above: Ordered: 12/06/2022 Bacteria identified in Urine by Culture URINE CULTURE Microbiology STAT Dysuria 04/30/2023 5:50 PM EDT [facility] Work Phone: Bacteria identified in Urine by Culture URINE CULTURE Microbiology Routine Burning with urination 02/03/2024 6:21 PM EDT [facility] Work Phone: Bacteria identified in Urine by Culture URINE CULTURE Microbiology Routine Urinary frequency Ordered: 05/03/2024 [facility] Work Phone: Comment on above: Ordered: 05/03/2024 Patient Education [facility] Work Phone: Patient referral [facility] Work Phone: Rhytidectomy cheek c hin & neck FACELIFT CHEEK, CHIN, AND NECK Gender dysphoria Excess skin of neck PLASTICS A60 UA DIP, URINE (POC) UA DIP, URIN E (POC) Lab Routine Screening for genitourinary condition 1 Occurrences starting 02/16/2025 [facility] Work Phone: Comment on above: 1 Occurrences starti ng 02/16/2025 End: 05-28-2026 XR Chest PA and Lateral XR CHEST 2V FRONTAL/LAT Radiology Routine Night sweats 1 Occurrences starting 04/28/2025 until 05/28/2026 [facility] Comment on above: 1 Occurrences starti ng 04/28/2025 until 05/28/2026 [facility] Immunizations Immunization Date Immunization Notes Care Provider Fa cili 02-11-2022 tetanus toxoid, redu erika diphtheria toxoid, and acellular pertussis vaccine, adsorbed [facility] Work Phone: 02-23-2021 COVID-19 original vaccine, full dose, monovalent (MODERNA) Jared Schilling MD Work Phone: [facility] Work Phone: 01-26-2021 COVID-19 original vaccine, full dose, monovalent (MODERNA) Jared Schilling MD Work Phone: [facility] Work Phone: 07-28-2020 influenza virus vacc ine, unspecified formulation Jared Schilling MD Work Phone: [facility] Work Phone: 08-10-2019 pneumococcal polysaccharide vaccine, 23 valent Jared Schilling MD Work Phone: [facility] 06-14-2017 tetanus toxoid, redu erika diphtheria toxoid, and acellular pertussis vaccine, adsorbed Jared Schilling MD Work Phone: [facility] 02-13-2009 tetanus and diphther ia toxoids, adsorbed, preservative free, for adult use (2 Lf of tetanus toxoid and 2 Lf of diphtheria toxoid) Jared Schilling MD Work Phone: [facility] Work Phone: Payers Date Payer Category Payer Self-pay [id number] 2023 Unknown [employer] BLUE CARD PPO OOS [id number] 2023-Present [phone] [address] [place] [address] PPO [id number] 2023 Unknown [id number] 2017 Medicaid [place] [employer] [place] [employer] [id number] 2017-Present [phone] [address] [place] [address] Medicaid [id number] 2017 Medicaid [id number] 2010 Unknown SELF PAY INSURANCE [id number] 01 [id number] 2010 Unknown [id number] Unknown [id number] Unknown [id number] Unknown [id number] Unknown [id number] Social History Date Type Detail Facility Start: 08-10-2019 End: 04-25-2025 Tobacco smoking status NHIS Ex-smoker [facility] Work Phone: Start: 10-20-2006 End: 10-20-2016 History of tobacco use Current smoker [facility] Work Phone: Start: 10-20-2006 End: 10-20-2016 History of tobacco use Cigarette Smoker [facility] Work Phone: Start: 08-10-2019 End: 02-17-2023 Cigarettes smoked current (pack per day) - Reported 0.5 [facility] Start: 08-10-2019 End: 04-25-2025 Tobacco use and exposure Smokeless tobacco non-user [facility] Work Phone: Start: 11-26-2021 End: 04-25-2025 Alcohol intake Current non-drinker of alcohol (finding) [facility] Start: 12-23-2019 End: 11-21-2022 History SDOH Alcohol Frequency 1 [facility] Start: 12-23-2019 End: 11-21-2022 History SDOH Alcohol Std Drinks 98 [facility] Start: 12-23-2019 End: 11-21-2022 History SDOH Social Connections Phone 5 [facility] Start: 07-04-2020 End: 11-21-2022 History SDOH Social Connections Get Together 2 [facility] Start: 12-23-2019 End: 04-22-2022 History SDOH Social Connections Living 8 [facility] Start: 12-23-2019 End: 11-21-2022 History SDOH Physical Activity MPS 3 [facility] Start: 12-23-2019 Education 21 [facility] Start: 1980 Sex Assigned At Male [facility] Work Phone: Start: 02-11-2022 End: 02-05-2024 Tobacco smoking status NHIS Unknown if ever smoked [facility] Start: 11-01-2020 None [facility] Start: 11-01-2020 [facility]one [facility] Start: 04-29-2021 End: 07-09-2022 Exposure to SARS-CoV-2 (event) Not sure [facility] Start: 04-22-2022 History SDOH Physical Activity DPW 7 [facility] Start: 11-21-2022 History SDOH Alcohol Std Drinks 0 [facility] Start: 11-21-2022 History SDOH Social Connections Phone 4 [facility] Start: 11-21-2022 End: 02-17-2023 Social connection and isolation panel [facility] Do you belong to any clubs or organizations such as mormon groups, unions, fraternal or athletic groups, or school groups? Patient refused [facility] Are you now , , , , never or living with a partner? [facility] How often to you hav e a drink containing alcohol? Never [facility] How hard is it for y ou to pay for the very basics like food, housing, medical care, and heating Not very hard [facility] Do you feel stress - tense, restless, nervous, or anxious, or unable to sleep at night because your mind is troubled all the time - these days [OSQ] To some extent [facility] (I/We) worried haley er (my/our) food would run out before (I/we) got money to buy more. Never true [facility] In the past 12 month s, was there a time when you were not able to pay the mortgage or rent on time? No [facility] Start: 12-23-2019 Gender identity [id number] transsexual (finding) [facility] Start: 12-23-2019 Sexual orientation Bisexual (finding) [facility] Do you belong to any clubs or organizations such as mormon groups, unions, fraternal or athletic groups, or school groups? Yes [facility] Do you feel stress - tense, restless, nervous, or anxious, or unable to sleep at night because your mind is troubled all the time - these days [OSQ] Only a little [facility] Medical Equipment Procedure Code Equipment Code Equipment Origin al Text Equipment Identifier Dates Conform Binder Submalar Large 5.4cm X 1.9cm X 0.6cm [id number] Start: 07-27-2021 Comment on above: Description: TRISTIN Rosen HECK Level One Ultrao ne Ladder Plate W/Tab Neuro 2holes 17mm [id number] Start: 05-10-2022 Scrw L1 One-Driv e Pur 1.5mm X 3.5mm [id number] Start: 05-10-2022 Scrw Ond Mandib Ul Lp Df 1.5x4 [id number] Start: 05-10-2022 1 Each one time a week. [id number], [id number] Start: 12-23-2023 End: 05-27-2024 Comment on above: 1 Each one time a we ek. Mental Status Date Assessment Result Facility 04-25-2025 Cognitive function Level Of Cons ciousness Awake;Appropriate;Follows [facility] Work Phone: 02-05-2024 Cognitive function Voice/Name [facility] Work Phone: 01-06-2023 Cognitive function Level Of Cons ciousness Awake;Alert;Appropriate;Follow s [facility] Work Phone: Clinical Notes 02-13-2009 to 05-12-2025 Telephone Encounter - Eliot Fraga RN - 05/12/2025 9:53 AM EDTTelephone Encounter - Eliot Fraga RN - 05/12/2025 9:53 AM EDTTelephone Encounter - Velia Munson RN - 05/10/2025 10:27 AM EDT Note Date & Type Note Facility 05-12-2025 Telephone encounter Note Patient reports that since their evaluation in the office on 04/28, they have developed throat pain. The pain is described as a deep, constant, throbbing sensation. No visible changes noted in the oropharynx; no erythema or exudate observed. Patient reports pain with swallowing. Persistent daily nausea is noted. Patient denies fever at this time. Joint pain continues. Voice remains hoarse. Patient was advised to schedule an in-office appointment for further evaluation. Patient is agreeable and has been transferred to the scheduling team. [facility] 05-12-2025 Miscellaneous Notes Patient reports that since their evaluation in the office on 04/28, they have developed throat pain. The pain is described as a deep, constant, throbbing sensation. No visible changes noted in the oropharynx; no erythema or exudate observed. Patient reports pain with swallowing. Persistent daily nausea is noted. Patient denies fever at this time. Joint pain continues. Voice remains hoarse. Patient was advised to schedule an in-office appointment for further evaluation. Patient is agreeable and has been transferred to the scheduling team. Left message for patient to call back. Please transfer to triage when call is returned thank you Eliot Fraga RN Images from the original note were not included. Shabbir L Boris P Myc Intm Lkwd Renew Rx Pool (supporting Rickie Cornell PA-C)1 hour ago (9:01 AM) Hey there, I wanted to touch base that my throat is swollen and feels like it s throbbing inside. My voice has become very horse. I still feel extremely nauseous and have little to no appetite and a fair amount of body pain and discomfort. What are some next steps we can take? Thank you so much for all of your time and effort. documented in this encounter [facility] 05-10-2025 Telephone encounter Note Left message for patient to call back. Please transfer to triage when call is returned thank you Eliot Fraga RN [facility] 05-10-2025 Telephone encounter Note Images from the original note were not included. Shabbir L Boris P Myc Intm Lkwd Renew Rx Pool (supporting Rickie Cornell PA-C)1 hour ago (9:01 AM) Hey there, I wanted to touch base that my throat is swollen and feels like it s throbbing inside. My voice has become very horse. I still feel extremely nauseous and have little to no appetite and a fair amount of body pain and discomfort. What are some next steps we can take? Thank you so much for all of your time and effort. [facility] 05-04-2025 Telephone encounter Note Sent MCM. Repeat TFT. Rickie Cornell PA-C [facility] 05-04-2025 Miscellaneous Notes Sent MCM. Repeat TFT. Rickie Cornell PA-C documented in this encounter [facility] 05-02-2025 History of Presen t illness Narrative Radiology Service Progress Note PATIENT NAME: Segundo Quezada DATE OF SERVICE: May 02, 2025 TIME: 3:43 PM PATIENT IDENTITY VERIFICATION COMPLETED USING TWO (2) IDENTIFIERS: Name and Date of confirmed by patient verbally. FALL SCREENING: Has the patient had 2 falls in the last year or 1 fall with injury or currently using an Ambulatory Assistive Device (Walker, Cane, Wheelchair, Crutches, etc.)? No PATIENT GENDER DATA: Assigned male at PATIENT RELEVANT IMPLANT DATA REVIEWED: Yes PATIENT PRESENTS WITH AN IMPLANTABLE OR ATTACHED PHARMACY TECHNICIAN: No RADIOLOGY DEPARTMENT: General X-ray: Exam(s) Completed: Chest X-Ray PERIPHERAL IV DATA: Not applicable SIGNED BY: RT Bryant(Foster) May 02, 2025 3:43 PM documented in this encounter [facility] 05-02-2025 Note HNO ID: [id number] Author: AYUSH BURCIAGA RT(Foster) Service: ? Author Type: Customer Experience Strategist Type: Progress Notes Filed: 05/02/2025 15:58 Note Text: Radiology Service Progress Note PATIENT NAME: Segundo Quezada DATE OF SERVICE: May 02, 2025 TIME: 3:43 PM PATIENT IDENTITY VERIFICATION COMPLETED USING TWO (2) IDENTIFIERS: Name and Date of confirmed by patient verbally. FALL SCREENING: Has the patient had 2 falls in the last year or 1 fall with injury or currently using an Ambulatory Assistive Device (Walker, Cane, Wheelchair, Crutches, etc.)? No PATIENT GENDER DATA: Assigned male at PATIENT RELEVANT IMPLANT DATA REVIEWED: Yes PATIENT PRESENTS WITH AN IMPLANTABLE OR ATTACHED PHARMACY TECHNICIAN: No RADIOLOGY DEPARTMENT: General X-ray: Exam(s) Completed: Chest X-Ray PERIPHERAL IV DATA: Not applicable SIGNED BY: Ayush Burciaga RT(R) May 02, 2025 3:43 PM [facility] 04-28-2025 Note HNO ID: [id number] Author: RICKIE CORNELL PA-C Service: ? Author Type: Physician Retail Sales Associate Seasonal Type: Progress Notes Filed: 04/28/2025 12:00 Note Text: This note was created using Zlio. Subjective VIRTUAL VISIT PROGRESS NOTE This is a virtual visit using [employer] Video Visit. It required patient-provider interaction for the medical decision making as documented below. I have communicated my name and active licensure. The patient's identity and physical location were verified at the time of this visit. Either the patient or their legal claims representative has been informed of the risks and benefits of -- and alternatives to -- treatment through a remote evaluation and consents to proceed with the evaluation remotely. Shabbir Quezada is a 44 year old adult who presents today for a virtual visit. PCP: Jared Schilling MD Last OV: 01/24/2025 with Rickie Cornell PA-C PMH: sinus headaches, recurrent UTI, hypothyroidism, gender dysphoria, anxiety, MDD #ED Follow up Originally went to for these symptoms and was advised to go to the ED afterwards Went to ED the other night - reports feeling sick for a few weeks Specifically was experiencing vertigo, fatigue, headaches, and photobophobia States her she has some droopiness on the left side of her face States she was told by the ED that she had tight muscles in the back of her neck and that was it Today: Reports drenching night sweats daily, generalized muscle aches and neck pain Feels burning on the inside of her head I feel like I have to pull open my sinus on the right side PMH of FFS with sinus surgery a few years ago States knees keep swelling up Reports generalized joint pain as well Continued vertigo and nausea/vomiting States these symptoms have been going on for about 3 weeks Denies unexplained weight loss Wondering if she has lyme - requesting testing States she had a rash on her arm - denies bull's eye appearance - unsure what caused it States the rash went away on its own No known tic bites but [place] Also reports intermittent fevers that come and go - 101 F States sensitivity to light - has to wear sunglasses when going outside Reports brain fog as well Denies current depressive episode Taking methocarbamol 500 mg QID PRN for muscle pain - reports some relief Sts she very afraid right now about what is going HISTORY REVIEWED (electronic chart updated): PAST MEDICAL HISTORY Diagnosis Date Chronic depressive personality disorder Former smoker 07/17/2021 Gender dysphoria 07/17/2021 Generalized anxiety disorder Hypothyroidism Obesity 07/17/2021 Tobacco use disorder PAST SURGICAL HISTORY Procedure Laterality Date OSTEOTOMY - BODY OF MANDIBLE 07/2021 with cheek augmentation Family History Problem Relation Age of Onset other (hepatitis) Mother other (ulcers) Father No Known Problems Maternal Grandmother Alzheimer's Disease Maternal Grandfather No Known Problems Paternal Grandmother No Known Problems Paternal Grandfather Allergies Daughter Anesthesia Problems No Family History Social History Tobacco Use Smoking status: Former Current packs/day: 0.00 Average packs/day: 0.5 packs/day for 10.0 years (5.0 ttl pk-yrs) Types: Cigarettes Start date: 10/20/2006 Quit date: 10/20/2016 Years since quittin.5 Smokeless tobacco: Never Vaping Use Vaping status: Never Used Substance Use Topics Alcohol use: No Drug use: No Current Outpatient Medications Medication Sig Dispense Refill Phentermine HCl 37.5 mg tablet Take 1 tablet by mouth once daily for 90 days. 30 tablet 2 estradiol (ESTRACE) 2 mg tablet Take 1 tablet by mouth three times a day. 270 tablet 0 traZODone (DESYREL) 50 mg tablet Take 1 tablet by mouth at bedtime as needed. 90 tablet 1 busPIRone (BUSPAR) 10 mg tablet Take 1 tablet by mouth three times a day. 90 tablet 2 spironolactone (ALDACTONE) 50 mg tablet Take 1 tablet by mouth every 12 hours. 180 tablet 1 levothyroxine (SYNTHROID) 25 mcg tablet take 1 tablet by mouth once daily 180 tablet 3 finasteride (PROPECIA) 1 mg tablet take 1 tablet by mouth once daily 90 tablet 3 fluvoxaMINE (LUVOX) 100 mg tablet take 1 tablet by mouth every morning 90 tablet 3 famotidine (PEPCID) 20 mg tablet take 1 tablet by mouth twice a day if needed 60 tablet 1 MULTIVITAMIN/IRON/FOLIC ACID (DAILY MULTI ORAL) Take 1 tablet by mouth once daily. No current facility-administered medications for this visit. ALLERGIES Allergen Reactions Green Tea Anaphylaxis Seasonal Allergies Unknown Review of Systems Constitutional: Positive for fatigue. Negative for chills and fever. Night sweats HENT: Negative for congestion and sore throat. Eyes: Positive for photophobia. Negative for pain and visual disturbance. Respiratory: Negative for cough and shortness of breath. Cardiovascular: Negative for chest pain and palpitations. Gastrointesti (more content not included)... [facility] 04-28-2025 History of Presen t illness Narrative This note was created using Zlio. Subjective VIRTUAL VISIT PROGRESS NOTE This is a virtual visit using [employer] Zoom Video Visit. It required patient-provider interaction for the medical decision making as documented below. I have communicated my name and active licensure. The patient's identity and physical location were verified at the time of this visit. Either the patient or their legal claims representative has been informed of the risks and benefits of -- and alternatives to -- treatment through a remote evaluation and consents to proceed with the evaluation remotely. Shabbir Quezada is a 44 year old adult who presents today for a virtual visit. PCP: Jared Schilling MD Last OV: 01/24/2025 with Rickie Cornell PA-C PMH: sinus headaches, recurrent UTI, hypothyroidism, gender dysphoria, anxiety, MDD #ED Follow up Originally went to for these symptoms and was advised to go to the ED afterwards Went to ED the other night - reports feeling sick for a few weeks Specifically was experiencing vertigo, fatigue, headaches, and photobophobia States her she has some droopiness on the left side of her face States she was told by the ED that she had tight muscles in the back of her neck and that was it Today: Reports drenching night sweats daily, generalized muscle aches and neck pain Feels burning on the inside of her head I feel like I have to pull open my sinus on the right side PMH of FFS with sinus surgery a few years ago States knees keep swelling up Reports generalized joint pain as well Continued vertigo and nausea/vomiting States these symptoms have been going on for about 3 weeks Denies unexplained weight loss Wondering if she has lyme - requesting testing States she had a rash on her arm - denies bull's eye appearance - unsure what caused it States the rash went away on its own No known tic bites but states [place] Also reports intermittent fevers that come and go - 101 F States sensitivity to light - has to wear sunglasses when going outside Reports brain fog as well Denies current depressive episode Taking methocarbamol 500 mg QID PRN for muscle pain - reports some relief Sts she very afraid right now about what is going HISTORY REVIEWED (electronic chart updated): PAST MEDICAL HISTORY Diagnosis Date Chronic depressive personality disorder Former smoker 07/17/2021 Gender dysphoria 07/17/2021 Generalized anxiety disorder Hypothyroidism Obesity 07/17/2021 Tobacco use disorder PAST SURGICAL HISTORY Procedure Laterality Date OSTEOTOMY - BODY OF MANDIBLE 07/2021 with cheek augmentation Family History Problem Relation Age of Onset other (hepatitis) Mother other (ulcers) Father No Known Problems Maternal Grandmother Alzheimer's Disease Maternal Grandfather No Known Problems Paternal Grandmother No Known Problems Paternal Grandfather Allergies Daughter Anesthesia Problems No Family History Social History Tobacco Use Smoking status: Former Current packs/day: 0.00 Average packs/day: 0.5 packs/day for 10.0 years (5.0 ttl pk-yrs) Types: Cigarettes Start date: 10/20/2006 Quit date: 10/20/2016 Years since quittin.5 Smokeless tobacco: Never Vaping Use Vaping status: Never Used Substance Use Topics Alcohol use: No Drug use: No Current Outpatient Medications Medication Sig Dispense Refill Phentermine HCl 37.5 mg tablet Take 1 tablet by mouth once daily for 90 days. 30 tablet 2 estradiol (ESTRACE) 2 mg tablet Take 1 tablet by mouth three times a day. 270 tablet 0 traZODone (DESYREL) 50 mg tablet Take 1 tablet by mouth at bedtime as needed. 90 tablet 1 busPIRone (BUSPAR) 10 mg tablet Take 1 tablet by mouth three times a day. 90 tablet 2 spironolactone (ALDACTONE) 50 mg tablet Take 1 tablet by mouth every 12 hours. 180 tablet 1 levothyroxine (SYNTHROID) 25 mcg tablet take 1 tablet by mouth once daily 180 tablet 3 finasteride (PROPECIA) 1 mg tablet take 1 tablet by mouth once daily 90 tablet 3 fluvoxaMINE (LUVOX) 100 mg tablet take 1 tablet by mouth every morning 90 tablet 3 famotidine (PEPCID) 20 mg tablet take 1 tablet by mouth twice a day if needed 60 tablet 1 MULTIVITAMIN/IRON/FOLIC ACID (DAILY MULTI ORAL) Take 1 tablet by mouth once daily. No current facility-administered medications for this visit. ALLERGIES Allergen Reactions Green Tea Anaphylaxis Seasonal Allergies Unknown Review of Systems Constitutional: Positive for fatigue. Negative for chills and fever. Night sweats HENT: Negative for congestion and sore throat. Eyes: Positive for photophobia. Negative for pain and visual disturbance. Respiratory: Negative for cough and shortness of breath. Cardiovascular: Negative for chest pain and palpitations. Gastrointestinal: Positive for nausea. Negative for abdominal pain, blood in stool, constipation, diarrhea and vomiting. Endocrine: Negative for polydipsia and polyuria. Genitourinary: Negative for dysuria and hematuria. Musculoskeletal: Positive for arthralgias, myalgias and neck pain. Skin: Negative for rash. Neurological: Positive for headaches. Negative for dizziness, light-headedness and numbness. Psychiatric/Behavioral: The patient is nervous/anxious. Objective PHYSICAL EXAMINATION: VIDEO EXAM: (if done, performed via video enabled technology) GENERAL: alert and appropriate, in no distress and well-hydrated, well nourished. No conversational dyspnea. Speaking and responding appropriately in full sentences. SKIN: no rash noted HEAD: normocephalic, no abnormality or lesion noted. FACE: No facial droop noted. EYES: no injection and visual acuity is grossly normal EARS: hearing grossly normal NOSE: external nose normal without rhinorrhea OROPHARYNX: moist mucus membranes NECK: Supple RESPIRATORY: breathing non-labored CHEST: equal chest rise with normal respiratory effort Assessment and Plan Encounter Diagnosis ICD-10-CM 1. Night sweats R61 THYROID STIMULATING HORMONE T4 FREE/FREE THYROXINE T3 XR CHEST 2V FRONTAL/LAT COMPLETE BLOOD COUNT AND DIFFERENTIAL CYTOMEGALOVIRUS (CMV) DNA, QUANTITATIVE PCR, PLASMA MONOTEST, INFECTIOUS MONO CMV IGM AB CMV IGG ANTIBODY BL COMPREHENSIVE METABOLIC PANEL LYME AB EARLY <=30 DAY SYMPTOMS URINALYSIS (WITH MICROSCOPIC) WITH CULTURE IF INDICATED RIAZ VARGAS PANEL BLOOD TB SCREEN 2. Photophobia H53.149 3. Headaches R51.9 CONSULT TO HEADACHE CLINIC RIAZ VARGAS PANEL 4. Myalgias M79.10 CONSULT TO RHEUM/IMMUN DISEASE CREATINE KINASE/CK THERESA BY IFA WITH REFLEX CCP ANTIBODY IGG RHEUMATOID FACTOR C-REACTIVE PROTEIN SEDIMENTATION RATE, WESTERGREN RIAZ VARGAS PANEL 5. Fatigue, unspecified type R53.83 THERESA BY IFA WITH REFLEX CCP ANTIBODY IGG RHEUMATOID FACTOR C-REACTIVE PROTEIN SEDIMENTATION RATE, WESTERGREN RIAZ VARGAS PANEL BLOOD TB SCREEN 6. Sinus congestion R09.81 CONSULT TO ENT #Drenching night sweats, fatigue, myalgias, arthralgias, headaches, photophobia Unclear etiology Patient previously evaluated at the ED however I do not have access to those notes Pt states that meningitis was ruled out at the ED ?CMV versus EBV versus other unspecified viral illness versus immunologic etiology versus thyroid dysfunction versus other etiology? Will obtain TFTs, CBCD, CMP, CMV workup, THERESA, CCP, RF, CRP, ESR, UA, Lyme, mono, TB, and chest x-ray Consult headache clinic for headaches Consult ENT for sinus congestion Advised Mucinex and Flonase, saline nasal swishes for current congestion RTC in ED protocol given Consider optho for eye exam Follow up PRN if sxs persist or worsen This note was partially generated using [employer] voice recognition system. Medical Decision Making: Data: Unique source(s) for external note(s) reviewed: 1 Unique test(s) ordered: 3+ Risk: Moderate: Drug management High: High risk from testing/treatment Medical Decision Making Level: 4 - Moderate Electronically Signed by: Rickie Cornell PA-C He/Him April 28, 2025 11:59 AM documented in this encounter [facility] 04-25-2025 Radiology Diagnostic study note [facility] Imaging Services [address], [place] [id number] Brain/Head without Contrast MR#: [id number] Acct: [id number] Name: SEGUNDO QUEZADA Rep #: [id number] : 1980 M 44 From: Issa Watts MD PCP: JARED SCHILLING Status: REG ER Study:Brain/Head without Contrast Date of Exa m: 04/25/25 Exam# [id number] Ordering Dr: Julianne Malloy DO PROCEDURE: BRAIN/HEAD WITHOUT CONTRAST 04/25/2025 REASON FOR EXAM: HEADACHE TECHNIQUE: BRAIN/HEAD WITHOUT CONTRAST Coronal and Sagittal reconstruction series were provided. One or more dose reduction techniques were used (e.g., Automated exposure control, adjustment of the mA and/or kV according to patient size, use of iterative reconstruction technique. RADIATION DOSE SUMMARY: CTDlvol: 44.99 mGy DLP: 812.98 mGycm COMPARISON: 02/05/2024. FINDINGS: The ventricles are normal in size and midline in position. No evidence of acutehemorrhage or infarction. No extra-axial blood or fluid collections. The paranasal sinuses and mastoid air cells are clear. The calvarial vault and skull base are intact. CT/Brain/Head without Contrast IMPRESSION: No acute intracranial abnormalities. Reading Location: [id number] CC: JARED SCHILLING; Ankit Malloy DO ~ Therapy Site Coordinator: Signed [facility] 04-25-2025 Note HNO ID: [id number] Author: RAFAEL MOLINA MD Service: ? Author Type: Physician Type: Progress Notes Filed: 04/25/2025 17:14 Note Text: [facility] Lien Quezada is a 44 year old adult. Patient presents with: Fatigue: Burning neck pain radiating to front of head, fogginess, R side sinus pain, nausea, dizziness, light sensitive, Patient presents with not feeling well for 1 week. She has a headache which begins with a burning sensation the back of the neck and radiates around to the front of her head. She feels like there is something stuck in her right maxillary sinus which radiates into the teeth (status post sinus surgery on that side). She feels dizzy with spinning sensation, is stumbling when walking, has nausea and vomiting, photophobia, mild rhinorrhea, very fatigued, feels cold, all over body aches, and mottled skin. Denies diarrhea, cough, or sore throat. She had a rash on her forearm which she felt was poison jennifer and has improved. Has taken ibuprofen for symptoms. Home COVID test was negative. Denies history of similar headaches or recent travel. Fatigue Review of Systems Constitutional: Positive for malaise/fatigue. Objective BP 107/74 Pulse 78 Temp 36.8 ?C (98.3 ?F) Resp 18 Wt 65.9 kg (145 lb 4.5 oz) SpO2 99% BMI 23.45 kg/m? Physical Exam Constitutional: General: She is not in acute distress. Appearance: She is ill-appearing. HENT: Right Ear: Tympanic membrane and ear canal normal. Left Ear: Tympanic membrane and ear canal normal. Nose: No congestion or rhinorrhea. Right Sinus: No maxillary sinus tenderness or frontal sinus tenderness. Left Sinus: No maxillary sinus tenderness or frontal sinus tenderness. Mouth/Throat: Mouth: Mucous membranes are moist. Pharynx: No oropharyngeal exudate or posterior oropharyngeal erythema. Eyes: Extraocular Movements: Extraocular movements intact. Conjunctiva/sclera: Conjunctivae normal. Pupils: Pupils are equal, round, and reactive to light. Comments: Squinting with room lights Cardiovascular: Rate and Rhythm: Normal rate and regular rhythm. Heart sounds: No murmur heard. Pulmonary: Effort: No respiratory distress. Breath sounds: No wheezing, rhonchi or rales. Musculoskeletal: Cervical back: Neck supple. Lymphadenopathy: Cervical: No cervical adenopathy. Skin: Comments: Faint healed 6 cm area left forearm where dermatitis had been. Mild mottling of hands. Neurological: Mental Status: She is alert. Cranial Nerves: No cranial nerve deficit. Motor: No weakness. Gait: Gait normal. Deep Tendon Reflexes: Reflexes normal. {ASSESSMENT/PLAN: 1. Headache, unspecified headache type - ICD9: 784.0, ICD10: R51.9 (primary diagnosis) 2. Vertigo - ICD9: 780.4, ICD10: R42 3. Nausea and vomiting, unspecified vomiting type - ICD9: 787.01, ICD10: R11.2 4. Photophobia - ICD9: 368.13, ICD10: H53.149 Who onset of vertigo and photophobia associated with atypical headache and illness symptoms. Patient referred to the emergency room for further evaluation to rule out serious causes including meningitis. She is not certain if she will go to the [place] ER or a [facility] ED Rafael Molina MD History and Record Review Systemic symptoms present included: Fatigue, body aches, chills Differential Diagnoses - Acute viral illness - Meningitis - Tickborne illness - sinusitis - increased intracranial pressure Procedures [facility] 04-25-2025 History of Presen t illness Narrative [facility] Subjective Segundo Quezada is a 44 year old adult. Patient presents with: Fatigue: Burning neck pain radiating to front of head, fogginess, R side sinus pain, nausea, dizziness, light sensitive, Patient presents with not feeling well for 1 week. She has a headache which begins with a burning sensation the back of the neck and radiates around to the front of her head. She feels like there is something stuck in her right maxillary sinus which radiates into the teeth (status post sinus surgery on that side). She feels dizzy with spinning sensation, is stumbling when walking, has nausea and vomiting, photophobia, mild rhinorrhea, very fatigued, feels cold, all over body aches, and mottled skin. Denies diarrhea, cough, or sore throat. She had a rash on her forearm which she felt was poison jennifer and has improved. Has taken ibuprofen for symptoms. Home COVID test was negative. Denies history of similar headaches or recent travel. Fatigue Review of Systems Constitutional: Positive for malaise/fatigue. Objective BP 107/74 Pulse 78 Temp 36.8 C (98.3 F) Resp 18 Wt 65.9 kg (145 lb 4.5 oz) SpO2 99% BMI 23.45 kg/m Physical Exam Constitutional: General: She is not in acute distress. Appearance: She is ill-appearing. HENT: Right Ear: Tympanic membrane and ear canal normal. Left Ear: Tympanic membrane and ear canal normal. Nose: No congestion or rhinorrhea. Right Sinus: No maxillary sinus tenderness or frontal sinus tenderness. Left Sinus: No maxillary sinus tenderness or frontal sinus tenderness. Mouth/Throat: Mouth: Mucous membranes are moist. Pharynx: No oropharyngeal exudate or posterior oropharyngeal erythema. Eyes: Extraocular Movements: Extraocular movements intact. Conjunctiva/sclera: Conjunctivae normal. Pupils: Pupils are equal, round, and reactive to light. Comments: Squinting with room lights Cardiovascular: Rate and Rhythm: Normal rate and regular rhythm. Heart sounds: No murmur heard. Pulmonary: Effort: No respiratory distress. Breath sounds: No wheezing, rhonchi or rales. Musculoskeletal: Cervical back: Neck supple. Lymphadenopathy: Cervical: No cervical adenopathy. Skin: Comments: Faint healed 6 cm area left forearm where dermatitis had been. Mild mottling of hands. Neurological: Mental Status: She is alert. Cranial Nerves: No cranial nerve deficit. Motor: No weakness. Gait: Gait normal. Deep Tendon Reflexes: Reflexes normal. {ASSESSMENT/PLAN: 1. Headache, unspecified headache type - ICD9: 784.0, ICD10: R51.9 (primary diagnosis) 2. Vertigo - ICD9: 780.4, ICD10: R42 3. Nausea and vomiting, unspecified vomiting type - ICD9: 787.01, ICD10: R11.2 4. Photophobia - ICD9: 368.13, ICD10: H53.149 Who onset of vertigo and photophobia associated with atypical headache and illness symptoms. Patient referred to the emergency room for further evaluation to rule out serious causes including meningitis. She is not certain if she will go to the [place] ER or a [facility] ED Rafael Molina MD History and Record Review Systemic symptoms present included: Fatigue, body aches, chills Differential Diagnoses - Acute viral illness - Meningitis - Tickborne illness - sinusitis - increased intracranial pressure Procedures documented in this encounter [facility] 04-24-2025 Note Addended by: LUZ MARINA MEDEL on: 04/24/2025 02:46 PM Modules accepted: Orders [facility] 04-24-2025 Miscellaneous Notes Addended by: LUZ MARINA MEDEL on: 04/24/2025 02:46 PM Modules accepted: Orders documented in this encounter [facility] 04-22-2025 History of Presen t illness Narrative Images from the original note were not included. BMI Obesity Medicine Pharmacotherapy [facility] Visit April 22, 2025 This Team Access Model visit is a virtual encounter. I have communicated my name and active licensure. The patient's identity and physical location were verified at the time of this visit. Either the patient or their legal claims representative has been informed of the risks and benefits of -- and alternatives to -- treatment through a remote evaluation and consents to proceed with the evaluation remotely. Patient Summary: Segundo Quezada is 44 year old adult who presents virtually to the [facility] Bariat[facility] and Metabolic [place] for follow-up evaluation of obesity and related complications. In previous visits we have outlined an individualized lifestyle intervention including a personalized nutrition recommendations and physical activity optimization. Currently on an anti-obesity medication below. Virtual encounter done together with the assistance of Nissa Kothari RDN Weight last visit: Last Wt 04/22/25 : 64.4 kg (142 lb) 04/05/25 : 65.3 kg (144 lb) 01/24/25 : 64.9 kg (143 lb 1.3 oz) 12/16/24 : 62.6 kg (138 lb) Interval History: PT specifies the following items as new or significant updates since the last appointment: Last visit was with Alonso Siu APRN.CNP in August. No complaints.. Reports weight is stable since the last visit. Obesity Medications: Phentermine Side effects: no side effects Benefit: Reduction of appetite Weight Promoting Medications: Other NA Diet: virtually counseled by SAMMI today Current nutrition plan includes Meal replacements Diet barriers/challenges since beginning AOM: NA Diet changes made since beginning AOM: More mindful of food choices;Increased protein intake Exercise: Engages in at least 150 min of physical activity per week? Yes. ??Stress: Is stress a barrier to weight loss? Yes. Sleep: Greater than 6 hours of sleep? Yes. Review of Systems and Social History reviewed in [facility] I have confirmed and edited as necessary, the PFSH and ROS obtained by others. The physical systems reviewed reveal no pathological symptoms that are pertinent to this visit Physical Exam:(if done, performed via video enabled technology) Ht 167.6 cm (5' 6) Wt 64.4 kg (142 lb) BMI 22.92 kg/m NAD Results: reviewed labs with the patient. @ WBC (k/uL) Date Value 01/24/2025 8.52 RBC (m/uL) Date Value 01/24/2025 4.16 (L) Hemoglobin (g/dL) Date Value 01/24/2025 13.2 Hematocrit (%) Date Value 01/24/2025 39.1 MCV (fL) Date Value 01/24/2025 94.0 MCH (pg) Date Value 01/24/2025 31.7 MCHC (g/dL) Date Value 01/24/2025 33.8 RDW-CV (%) Date Value 01/24/2025 11.8 Platelet Count (k/uL) Date Value 01/24/2025 189 MPV (fL) Date Value 01/24/2025 9.6 Glucose (mg/dL) Date Value 01/24/2025 92 07/20/2021 88 Potassium (mmol/L) Date Value 01/24/2025 4.1 07/20/2021 4.1 Sodium (mmol/L) Date Value 01/24/2025 137 07/20/2021 138 Chloride (mmol/L) Date Value 01/24/2025 100 07/20/2021 100 CO2 (mmol/L) Date Value 01/24/2025 26 07/20/2021 25 Creatinine (mg/dL) Date Value 01/24/2025 0.73 07/20/2021 0.64 BUN (mg/dL) Date Value 01/24/2025 17 07/20/2021 16 Anion Gap (mmol/L) Date Value 01/24/2025 11 07/20/2021 13 Calcium (mg/dL) Date Value 07/20/2021 10.1 Calcium, Total (mg/dL) Date Value 01/24/2025 9.2 Protein, Total (g/dL) Date Value 02/27/2024 7.6 07/20/2021 7.9 Albumin (g/dL) Date Value 02/27/2024 4.4 07/20/2021 4.9 Bilirubin, Total (mg/dL) Date Value 02/27/2024 0.3 07/20/2021 0.3 Alkaline Phosphatase (U/L) Date Value 02/27/2024 55 07/20/2021 57 AST (U/L) Date Value 02/27/2024 18 07/20/2021 22 ALT (U/L) Date Value 02/27/2024 16 07/20/2021 25 TSH Date Value Ref Range Status 01/24/2025 3.520 0.270 - 4.200 mIU/L Final Lab Results Component Value Date HBA1C 5.4 04/12/2022 HBA1C 5.3 07/20/2021 HBA1C 5.3 07/23/2019 HBA1C 5.9 09/13/2008 ACTIVE PROBLEM LIST History of 2019 Novel Coronavirus Disease (Covid-19) Gender Dysphoria Obesity Former Smoker Concern About Skin Disease Without Diagnosis Hypothyroidism Anxiety and Depression Dyspepsia Insomnia Recurrent Uti Impression: Segundo Quezada is a 44 year old adult with Body mass index is 22.92 kg/m . Obesity related complications as above, improving with weight loss Weight stable Currently taking Phentermine., response well. Lifestyle improved. Motivated. Plan: -- continue current lifestyle -- Continue Phentermine. -- return to clinic/virtually in 3 months per [place] state law Medical Decision Making: Problems: Low: Stable chronic illness Risk: Moderate: Drug management Medical Decision Making Level: 3 - Low Luz Marina Medel APRN.[employer]OT AMB[employer]ADOR documented in this encounter [facility] 04-22-2025 Note HNO ID: [id number] Author: LUZ MARINA MEDEL APRN.SLOT AMBASSADOR Service: ? Author Type: Nurse Practitioner Type: Progress Notes Filed: 04/24/2025 14:45 Note Text: BMI Obesity Medicine Pharmacotherapy [facility] Visit April 22, 2025 This Team Access Model visit is a virtual encounter. I have communicated my name and active licensure. The patient's identity and physical location were verified at the time of this visit. Either the patient or their legal claims representative has been informed of the risks and benefits of -- and alternatives to -- treatment through a remote evaluation and consents to proceed with the evaluation remotely. Patient Summary: Segundo Quezada is 44 year old adult who presents virtually to the [facility] Bariatric and Metabolic [place] for follow-up evaluation of obesity and related complications. In previous visits we have outlined an individualized lifestyle intervention including a personalized nutrition recommendations and physical activity optimization. Currently on an anti-obesity medication below. Virtual encounter done together with the assistance of Nissa Kothari RDN Weight last visit: Last Wt 04/22/25 : 64.4 kg (142 lb) 04/05/25 : 65.3 kg (144 lb) 01/24/25 : 64.9 kg (143 lb 1.3 oz) 12/16/24 : 62.6 kg (138 lb) Interval History: PT specifies the following items as new or significant updates since the last appointment: Last visit was with Alonso Siu APRN.CNP in August. No complaints.. Reports weight is stable since the last visit. Obesity Medications: Phentermine Side effects: no side effects Benefit: Reduction of appetite Weight Promoting Medications: Other NA Diet: virtually counseled by RDN today Current nutrition plan includes Meal replacements Diet barriers/challenges since beginning AOM: NA Diet changes made since beginning AOM: More mindful of food choices;Increased protein intake Exercise: Engages in at least 150 min of physical activity per week? Yes. ??Stress: Is stress a barrier to weight loss? Yes. Sleep: Greater than 6 hours of sleep? Yes. Review of Systems and Social History reviewed in Epic I have confirmed and edited as necessary, the PFSH and ROS obtained by others. The physical systems reviewed reveal no pathological symptoms that are pertinent to this visit Physical Exam:(if done, performed via video enabled technology) Ht 167.6 cm (5' 6) Wt 64.4 kg (142 lb) BMI 22.92 kg/m? NAD Results: reviewed labs with the patient. @ WBC (k/uL) Date Value 01/24/2025 8.52 RBC (m/uL) Date Value 01/24/2025 4.16 (L) Hemoglobin (g/dL) Date Value 01/24/2025 13.2 Hematocrit (%) Date Value 01/24/2025 39.1 MCV (fL) Date Value 01/24/2025 94.0 MCH (pg) Date Value 01/24/2025 31.7 MCHC (g/dL) Date Value 01/24/2025 33.8 RDW-CV (%) Date Value 01/24/2025 11.8 Platelet Count (k/uL) Date Value 01/24/2025 189 MPV (fL) Date Value 01/24/2025 9.6 Glucose (mg/dL) Date Value 01/24/2025 92 07/20/2021 88 Potassium (mmol/L) Date Value 01/24/2025 4.1 07/20/2021 4.1 Sodium (mmol/L) Date Value 01/24/2025 137 07/20/2021 138 Chloride (mmol/L) Date Value 01/24/2025 100 07/20/2021 100 CO2 (mmol/L) Date Value 01/24/2025 26 07/20/2021 25 Creatinine (mg/dL) Date Value 01/24/2025 0.73 07/20/2021 0.64 BUN (mg/dL) Date Value 01/24/2025 17 07/20/2021 16 Anion Gap (mmol/L) Date Value 01/24/2025 11 07/20/2021 13 Calcium (mg/dL) Date Value 07/20/2021 10.1 Calcium, Total (mg/dL) Date Value 01/24/2025 9.2 Protein, Total (g/dL) Date Value 02/27/2024 7.6 07/20/2021 7.9 Albumin (g/dL) Date Value 02/27/2024 4.4 07/20/2021 4.9 Bilirubin, Total (mg/dL) Date Value 02/27/2024 0.3 07/20/2021 0.3 Alkaline Phosphatase (U/L) Date Value 02/27/2024 55 07/20/2021 57 AST (U/L) Date Value 02/27/2024 18 07/20/2021 22 ALT (U/L) Date Value 02/27/2024 16 07/20/2021 25 TSH Date Value Ref Range Status 01/24/2025 3.520 0.270 - 4.200 mIU/L Final Lab Results Component Value Date HBA1C 5.4 04/12/2022 HBA1C 5.3 07/20/2021 HBA1C 5.3 07/23/2019 HBA1C 5.9 09/13/2008 ACTIVE PROBLEM LIST History of 2019 Novel Coronavirus Disease (Covid-19) Gender Dysphoria Obesity Former Smoker Concern About Skin Disease Without Diagnosis Hypothyroidism Anxiety and Depression Dyspepsia Insomnia Recurrent Uti Impression: Segundo Quezada is a 44 year old adult with Body mass index is 22.92 kg/m?. Obesity related complications as above, improving with weight loss Weight stable Currently taking Phentermine., response well. Lifestyle improved. Motivated. Plan: -- continue current lifestyle -- Continue Phentermine. -- return to clinic/virtually in 3 months per [place] law Medical Decision Making: Problems: Low: Stable chronic illness Risk: Moderate: Drug management Medical Decision Making L (more content not included)... [facility] 04-05-2025 Telephone encounter Note Last visit 01/24/25 Next appt not scheduled for July. Pharmacy electronically requesting refills as follows: Requested Prescriptions Pending Prescriptions Disp Refills estradiol (ESTRACE) 2 mg tablet [Pharmacy Med Name: ESTRADIOL 2 MG TABLET] 270 tablet 0 Sig: take 1 tablet by mouth three times a day Please review and advise. Yina Madsen MA [facility] 04-05-2025 Miscellaneous Notes Last visit 01/24/25 Next appt not scheduled for July. Pharmacy electronically requesting refills as follows: Requested Prescriptions Pending Prescriptions Disp Refills estradiol (ESTRACE) 2 mg tablet [Pharmacy Med Name: ESTRADIOL 2 MG TABLET] 270 tablet 0 Sig: take 1 tablet by mouth three times a day Please review and advise. Yina Madsen MA documented in this encounter [facility] 04-05-2025 History of Presen t illness Narrative BMI Obesity Medicine FollowUp Note [facility] Visit April 05, 2025 I have communicated my name and active licensure. The patient's identity and physical location were verified at the time of this visit. Either the patient or their legal claims representative has been informed of the risks and benefits of -- and alternatives to -- treatment through a remote evaluation and consents to proceed with the evaluation remotely. Patient Summary: Segundo Quezada is 44 year old Transgender Female who presents virtually for follow-up evaluation of her obesity and related complications to the [facility] and Metabolic [place]. In our previous visits we have outlined an individualized lifestyle intervention including a personalized nutrition recommendations and physical activity optimization. [facility] 12/16/2024: Impression: Segundo Quezada is a 44 year old adult with Body mass index is 22.27 kg/m . and the above obesity related complications. Currently taking Phentermine, responding well. Lifestyle improved and stable Plan: -- continue current lifestyle -- Continue Phentermine. -- return to clinic/virtually in 3 months Alonso Siu APRN.[place] Initial Program Weight 215 lbs Recent Weight history: Last Wt 04/05/25 : 65.3 kg (144 lb) 01/24/25 : 64.9 kg (143 lb 1.3 oz) 12/16/24 : 62.6 kg (138 lb) 08/20/24 : 65.8 kg (145 lb) Interval History: She specifies the following items as new or significant updates since the last appointment: Returns after 3.5 months Reports weight is stable since the last visit. Obesity Medications: Phentermine 37.5 mg full tab. Start Date: 03/12/2024 Weight: 167 lbs Effects Reduction of appetite S/E: none Discontinued d/t shortage Diet: - Stable - Reduced portions - Picking healthier food options - Protein shake for breakfast Exercise: - Treadmill and virtual boxing - Walking dogs. ?Sleep: - Sleeping 8 hours generally. ??Stress: - Manageable for the most part. Current political climate is stressful. Review of Systems: I have confirmed and edited as necessary, the PFSH and ROS obtained by others. History reviewed in Epic Current Outpatient Medications Medication Sig traZODone (DESYREL) 50 mg tablet Take 1 tablet by mouth at bedtime as needed. busPIRone (BUSPAR) 10 mg tablet Take 1 tablet by mouth three times a day. estradiol (ESTRACE) 2 mg tablet take 1 tablet by mouth three times a day spironolactone (ALDACTONE) 50 mg tablet Take 1 tablet by mouth every 12 hours. levothyroxine (SYNTHROID) 25 mcg tablet take 1 tablet by mouth once daily finasteride (PROPECIA) 1 mg tablet take 1 tablet by mouth once daily fluvoxaMINE (LUVOX) 100 mg tablet take 1 tablet by mouth every morning famotidine (PEPCID) 20 mg tablet take 1 tablet by mouth twice a day if needed MULTIVITAMIN/IRON/FOLIC ACID (DAILY MULTI ORAL) Take 1 tablet by mouth once daily. No current facility-administered medications for this visit. PAST MEDICAL HISTORY Diagnosis Date Chronic depressive personality disorder Former smoker 07/17/2021 Gender dysphoria 07/17/2021 Generalized anxiety disorder Hypothyroidism Obesity 07/17/2021 Tobacco use disorder PAST SURGICAL HISTORY Procedure Laterality Date OSTEOTOMY - BODY OF MANDIBLE 07/2021 with cheek augmentation Physical Exam: Weight: 65.3 kg (144 lb) Patient reported weight. VIDEO EXAM: (if done, performed via video enabled technology) General appearance: NAD Mental status: awake and alert Pulm: not visibly SOB Neuro: speech fluent Impression: Segundo Quezada is a 44 year old adult with Body mass index is 23.24 kg/m . and the above obesity related complications. Currently taking Phentermine, responding well. Lifestyle improved and stable. Plan: -- continue current lifestyle -- Continue Phentermine. -- return to clinic/virtually in 3 months I spent a total of 20 minutes on the date of the service which included preparing to see the patient, [id number] patient care, completing clinical documentation, obtaining and/or reviewing separately obtained history, performing a medically appropriate examination, counseling and educating the patient/family/caregiver, and ordering medications, tests, or procedures. Some documentation from previous visit of 12/16/2024 was copied and pasted, documentation has been reviewed and edited as necessary for today's visit. Alonso Siu APRN.[place] documented in this encounter [facility] 04-05-2025 Note HNO ID: [id number] Author: ALONSO SIU APRN.[place] Service: ? Author Type: Nurse Practitioner Type: Progress Notes Filed: 04/05/2025 09:15 Note Text: BMI Obesity Medicine FollowUp Note [facility] Visit April 05, 2025 I have communicated my name and active licensure. The patient's identity and physical location were verified at the time of this visit. Either the patient or their legal claims representative has been informed of the risks and benefits of -- and alternatives to -- treatment through a remote evaluation and consents to proceed with the evaluation remotely. Patient Summary: Segundo Quezada is 44 year old Transgender Female who presents virtually for follow-up evaluation of her obesity and related complications to the [facility] Bariatric and Metabolic [place]. In our previous visits we have outlined an individualized lifestyle intervention including a personalized nutrition recommendations and physical activity optimization. [facility] 12/16/2024: Impression: Segundo Quezada is a 44 year old adult with Body mass index is 22.27 kg/m?. and the above obesity related complications. Currently taking Phentermine, responding well. Lifestyle improved and stable Plan: -- continue current lifestyle -- Continue Phentermine. -- return to clinic/virtually in 3 months Alonso Siu APRN.[place] Initial Program Weight 215 lbs Recent Weight history: Last Wt 04/05/25 : 65.3 kg (144 lb) 01/24/25 : 64.9 kg (143 lb 1.3 oz) 12/16/24 : 62.6 kg (138 lb) 08/20/24 : 65.8 kg (145 lb) Interval History: She specifies the following items as new or significant updates since the last appointment: Returns after 3.5 months Reports weight is stable since the last visit. Obesity Medications: Phentermine 37.5 mg full tab. Start Date: 03/12/2024 Weight: 167 lbs Effects Reduction of appetite S/E: none Discontinued d/t shortage Diet: - Stable - Reduced portions - Picking healthier food options - Protein shake for breakfast Exercise: - Treadmill and virtual boxing - Walking dogs. ?Sleep: - Sleeping 8 hours generally. ??Stress: - Manageable for the most part. Current political climate is stressful. Review of Systems: I have confirmed and edited as necessary, the PFSH and ROS obtained by others. History reviewed in Epic Current Outpatient Medications Medication Sig traZODone (DESYREL) 50 mg tablet Take 1 tablet by mouth at bedtime as needed. busPIRone (BUSPAR) 10 mg tablet Take 1 tablet by mouth three times a day. estradiol (ESTRACE) 2 mg tablet take 1 tablet by mouth three times a day spironolactone (ALDACTONE) 50 mg tablet Take 1 tablet by mouth every 12 hours. levothyroxine (SYNTHROID) 25 mcg tablet take 1 tablet by mouth once daily finasteride (PROPECIA) 1 mg tablet take 1 tablet by mouth once daily fluvoxaMINE (LUVOX) 100 mg tablet take 1 tablet by mouth every morning famotidine (PEPCID) 20 mg tablet take 1 tablet by mouth twice a day if needed MULTIVITAMIN/IRON/FOLIC ACID (DAILY MULTI ORAL) Take 1 tablet by mouth once daily. No current facility-administered medications for this visit. PAST MEDICAL HISTORY Diagnosis Date Chronic depressive personality disorder Former smoker 07/17/2021 Gender dysphoria 07/17/2021 Generalized anxiety disorder Hypothyroidism Obesity 07/17/2021 Tobacco use disorder PAST SURGICAL HISTORY Procedure Laterality Date OSTEOTOMY - BODY OF MANDIBLE 07/2021 with cheek augmentation Physical Exam: Weight: 65.3 kg (144 lb) Patient reported weight. VIDEO EXAM: (if done, performed via video enabled technology) General appearance: NAD Mental status: awake and alert Pulm: not visibly SOB Neuro: speech fluent Impression: Segundo Quezada is a 44 year old adult with Body mass index is 23.24 kg/m?. and the above obesity related complications. Currently taking Phentermine, responding well. Lifestyle improved and stable. Plan: -- continue current lifestyle -- Continue Phentermine. -- return to clinic/virtually in 3 months I spent a total of 20 minutes on the date of the service which included preparing to see the patient, [id number] patient care, completing clinical documentation, obtaining and/or reviewing separately obtained history, performing a medically appropriate examination, counseling and educating the patient/family/caregiver, and ordering medications, tests, or procedures. Some documentation from previous visit of 12/16/2024 was copied and pasted, documentation has been reviewed and edited as necessary for today's visit. Alonso Siu APRN.[employer] AMBASSADOR [facility] 02-28-2025 Telephone encounter Note Pharmacy calls in requesting the following refill(s): Last OV 01/24/25 No future appt Requested Prescriptions Pending Prescriptions Disp Refills traZODone (DESYREL) 50 mg tablet [Pharmacy Med Name: TRAZODONE 50 MG TABLET] 90 tablet 1 Sig: Take 1 tablet by mouth at bedtime as needed. [facility] 02-28-2025 Miscellaneous Notes Pharmacy calls in requesting the following refill(s): Last OV 01/24/25 No future appt Requested Prescriptions Pending Prescriptions Disp Refills traZODone (DESYREL) 50 mg tablet [Pharmacy Med Name: TRAZODONE 50 MG TABLET] 90 tablet 1 Sig: Take 1 tablet by mouth at bedtime as needed. documented in this encounter [facility] 02-16-2025 Note Patient Outreach (UR OLMN) SEGUNDO QUEZADA ([id number]) 1980 M T Date Time Provider Department 02/16/25 HENOK CAMPBELL During your visit today, we recorded the following information about you: Allergies As of Date: 02/16/2025 Noted Allergy Reaction GREEN TEA 01/24/2025 10 - Anaphylaxis SEASONAL ALLERGIES 01/24/2025 16 - Unknown Date Reviewed: 01/24/2025 Reviewed by: Minerva Ingram MA - Fully Assessed Visit Diagnosis:Screening for genitourinary condition [Z13.89] Order(s):UA DIP, URINE (POC) [[id number]] Order #: [id number] FUTURE Prescriptions as of 02/21/2025 - busPIRone (BUSPAR) 10 mg tablet Take 1 tablet by mouth three times a day. - estradiol (ESTRACE) 2 mg tablet take 1 tablet by mouth three times a day - Phentermine HCl 37.5 mg tablet Take 1 tablet by mouth once daily for 90 days. - spironolactone (ALDACTONE) 50 mg tablet Take 1 tablet by mouth every 12 hours. - levothyroxine (SYNTHROID) 25 mcg tablet take 1 tablet by mouth once daily - traZODone (DESYREL) 50 mg tablet Take 1 tablet by mouth at bedtime as needed. - finasteride (PROPECIA) 1 mg tablet take 1 tablet by mouth once daily - fluvoxaMINE (LUVOX) 100 mg tablet take 1 tablet by mouth every morning - famotidine (PEPCID) 20 mg tablet take 1 tablet by mouth twice a day if needed - MULTIVITAMIN/IRON/FOLIC ACID (DAILY MULTI ORAL) Take 1 tablet by mouth once daily. Problem List As Of Date 02/16/2025 Noted Resolved Cellulitis and abscess of unspecified site [L03*02/13/2009 08/10/2019 History of 2019 novel coronavirus disease (COVI*11/10/2020 Drug reaction [T50.905A] 11/10/2020 04/12/2022 Gender dysphoria [F64.9] 07/17/2021 Obesity [E66.9] 07/17/2021 Former smoker [Z87.891] 07/17/2021 Concern about skin disease without diagnosis [Z*09/04/2021 Nasal valve collapse [J34.829] 04/12/2022 12/23/2023 Nasal septal deviation [J34.2] 04/12/2022 12/23/2023 Hypothyroidism [E03.9] Anxiety and depression [F41.9, F32.A] Dyspepsia [R10.13] 04/22/2022 Insomnia [G47.00] 01/13/2023 Recurrent UTI [N39.0] 05/05/2023 Pilonidal cyst with abscess [L05.01] 05/22/2023 12/23/2023 Diagnosed: 05/22/2023 Sinus headache [R51.9] 01/13/2023 12/23/2023 Diagnosed: 05/22/2023 Anal or rectal pain [K62.89] 06/26/2023 12/23/2023 Encounter Status:Closed by SHANNON COLMENARESUSER on 02/21/25 [facility] 02-01-2025 Telephone encounter Note Pharmacy calls in requesting the following refill(s): Last OV 01/24/25 No future appt Did not discuss w rickie at last visit pt does follow with psychiatry Requested Prescriptions Pending Prescriptions Disp Refills busPIRone (BUSPAR) 10 mg tablet [Pharmacy Med Name: BUSPIRONE HCL 10 MG TABLET] 90 tablet 5 Sig: Take 1 tablet by mouth three times a day. [facility] 02-01-2025 Miscellaneous Notes Pharmacy calls in requesting the following refill(s): Last OV 01/24/25 No future appt Did not discuss nabeel thorne at last visit pt does follow with psychiatry Requested Prescriptions Pending Prescriptions Disp Refills busPIRone (BUSPAR) 10 mg tablet [Pharmacy Med Name: BUSPIRONE HCL 10 MG TABLET] 90 tablet 5 Sig: Take 1 tablet by mouth three times a day. documented in this encounter [facility] 01-24-2025 Note HNO ID: [id number] Author: RICKIE CORNELL PA-C Service: ? Author Type: Physician Retail Sales Associate Seasonal Type: Progress Notes Filed: 01/24/2025 16:18 Note Text: ESTABLISHED PATIENT Chief Complaint: Shabbir Quezada is a 44 year old adult who presents today with her , Ameena, for a follow up visit. Subjective HPI PCP: Jared Schilling MD Last VV: 01/21/[address] Schilling Last OV: 07/16/[address] Schilling PMH: sinus headaches, recurrent UTI, hypothyroidism, gender dysphoria, anxiety, MDD #Gender Dysphoria Current Regiment: 2 mg estradiol TID and spironolactone 50 mg BID Previously on injectables - stopped the injectables because the levels dropped and felt terrible when it was time for the next injection Stopped injectables at last VV in 01/2024 Has been on GAHT since 2019 Body changes: stable Feels like over the last year she feels like the feminization effects have lessened Specifically in the face - states eyes seem a bit different, skin is not a soft, feels like the jaw more box shaped Has intentionally lost a lot of weight - lost about 70 lbs Reports having a lot of lose skin Did have electrolysis on the face - reports a lot of pain with that procedure Has not obtained labs prior to today's visit Denies obvious negative side effects Denies CP, SOB, heart palpitations, headaches, and leg swelling Would be willing to talk to a surgeon about bottom surgery options Has 1 MANDO on file Does follow with a new psychiatrist - reports depression has gotten worse Reports concern over current political climate Stress has increased Sts she was advised to stay home Reports getting misgendered more and living in more conservative area No SI/HI/AH/VH Has been having bad night sweats - states she is drenching through clothes for the last month Has been on and off Gender Affirmation Care Goals Bottom surgery at some point - has met with someone to discuss laser hair removal but has not met with a surgeon yet Would like loose skin removed from the face #Hypothyroidism Currently on levothyroxine 25 mcg daily No issues with medications #Allergies Reports having continued allergic reactions that occur randomly States the other night was putting on a ring and felt like her throat was closing Reports a lot of itching and some times has hand and feet swelling States hands and feet get warm and then start to itch No known triggers Taking benadryl and has OTC allergy inhaler that helps Knows a lot of scented things trigger Denies hives or other rashes when these symptoms occur Also reports lip swelling #GHM Due for lipid screening PAST MEDICAL HISTORY Diagnosis Date Chronic depressive personality disorder Former smoker 07/17/2021 Gender dysphoria 07/17/2021 Generalized anxiety disorder Hypothyroidism Obesity 07/17/2021 Tobacco use disorder PAST SURGICAL HISTORY Procedure Laterality Date OSTEOTOMY - BODY OF MANDIBLE 07/2021 with cheek augmentation Family History Problem Relation Age of Onset other (hepatitis) Mother other (ulcers) Father No Known Problems Maternal Grandmother Alzheimer's Disease Maternal Grandfather No Known Problems Paternal Grandmother No Known Problems Paternal Grandfather Allergies Daughter Anesthesia Problems No Family History Current Outpatient Medications Medication Sig Dispense Refill estradiol (ESTRACE) 2 mg tablet take 1 tablet by mouth three times a day 270 tablet 0 Phentermine HCl 37.5 mg tablet Take 1 tablet by mouth once daily for 90 days. 30 tablet 2 spironolactone (ALDACTONE) 50 mg tablet Take 1 tablet by mouth every 12 hours. 180 tablet 1 levothyroxine (SYNTHROID) 25 mcg tablet take 1 tablet by mouth once daily 180 tablet 3 traZODone (DESYREL) 50 mg tablet Take 1 tablet by mouth at bedtime as needed. 90 tablet 1 busPIRone (BUSPAR) 10 mg tablet Take 1 tablet by mouth three times a day. 90 tablet 5 finasteride (PROPECIA) 1 mg tablet take 1 tablet by mouth once daily 90 tablet 3 fluvoxaMINE (LUVOX) 100 mg tablet take 1 tablet by mouth every morning 90 tablet 3 famotidine (PEPCID) 20 mg tablet take 1 tablet by mouth twice a day if needed 60 tablet 1 MULTIVITAMIN/IRON/FOLIC ACID (DAILY MULTI ORAL) Take 1 tablet by mouth once daily. No current facility-administered medications for this visit. ALLERGIES Allergen Reactions Green Tea Anaphylaxis Seasonal Allergies Unknown Social History Tobacco Use Smoking status: Former Current packs/day: 0.00 Average packs/day: 0.5 packs/day for 10.0 years (5.0 ttl pk-yrs) Types: Cigarettes Start date: 10/20/2006 Quit date: 10/20/2016 Years since quittin.2 Smokeless tobacco: Never Vaping Use Vaping status: Never Used Substance Use Topics Alcohol use: No Drug use: No Review of Systems Constitutional: Negative for chills and fever. HENT: Negative for congestion and sore throat. Eyes: Negative for pain and visual disturbance. Respi (more content not included)... [facility] 01-24-2025 History of Presen t illness Narrative ESTABLISHED PATIENT Chief Complaint: Shabbir Quezada is a 44 year old adult who presents today with her , Ameena, for a follow up visit. Subjective HPI PCP: Jared Schilling MD Last VV: 01/21/[address] Schilling Last OV: 07/16/[address] Schilling PMH: sinus headaches, recurrent UTI, hypothyroidism, gender dysphoria, anxiety, MDD #Gender Dysphoria Current Regiment: 2 mg estradiol TID and spironolactone 50 mg BID Previously on injectables - stopped the injectables because the levels dropped and felt terrible when it was time for the next injection Stopped injectables at last VV in 01/2024 Has been on GA since 2019 Body changes: stable Feels like over the last year she feels like the feminization effects have lessened Specifically in the face - states eyes seem a bit different, skin is not a soft, feels like the jaw more box shaped Has intentionally lost a lot of weight - lost about 70 lbs Reports having a lot of lose skin Did have electrolysis on the face - reports a lot of pain with that procedure Has not obtained labs prior to today's visit Denies obvious negative side effects Denies CP, SOB, heart palpitations, headaches, and leg swelling Would be willing to talk to a surgeon about bottom surgery options Has 1 MANDO on file Does follow with a new psychiatrist - reports depression has gotten worse Reports concern over current political climate Stress has increased Sts she was advised to stay home Reports getting misgendered more and living in more conservative area No SI/HI/AH/VH Has been having bad night sweats - states she is drenching through clothes for the last month Has been on and off Gender Affirmation Care Goals Bottom surgery at some point - has met with someone to discuss laser hair removal but has not met with a surgeon yet Would like loose skin removed from the face #Hypothyroidism Currently on levothyroxine 25 mcg daily No issues with medications #Allergies Reports having continued allergic reactions that occur randomly States the other night was putting on a ring and felt like her throat was closing Reports a lot of itching and some times has hand and feet swelling States hands and feet get warm and then start to itch No known triggers Taking benadryl and has OTC allergy inhaler that helps Knows a lot of scented things trigger Denies hives or other rashes when these symptoms occur Also reports lip swelling #GHM Due for lipid screening PAST MEDICAL HISTORY Diagnosis Date Chronic depressive personality disorder Former smoker 07/17/2021 Gender dysphoria 07/17/2021 Generalized anxiety disorder Hypothyroidism Obesity 07/17/2021 Tobacco use disorder PAST SURGICAL HISTORY Procedure Laterality Date OSTEOTOMY - BODY OF MANDIBLE 07/2021 with cheek augmentation Family History Problem Relation Age of Onset other (hepatitis) Mother other (ulcers) Father No Known Problems Maternal Grandmother Alzheimer's Disease Maternal Grandfather No Known Problems Paternal Grandmother No Known Problems Paternal Grandfather Allergies Daughter Anesthesia Problems No Family History Current Outpatient Medications Medication Sig Dispense Refill estradiol (ESTRACE) 2 mg tablet take 1 tablet by mouth three times a day 270 tablet 0 Phentermine HCl 37.5 mg tablet Take 1 tablet by mouth once daily for 90 days. 30 tablet 2 spironolactone (ALDACTONE) 50 mg tablet Take 1 tablet by mouth every 12 hours. 180 tablet 1 levothyroxine (SYNTHROID) 25 mcg tablet take 1 tablet by mouth once daily 180 tablet 3 traZODone (DESYREL) 50 mg tablet Take 1 tablet by mouth at bedtime as needed. 90 tablet 1 busPIRone (BUSPAR) 10 mg tablet Take 1 tablet by mouth three times a day. 90 tablet 5 finasteride (PROPECIA) 1 mg tablet take 1 tablet by mouth once daily 90 tablet 3 fluvoxaMINE (LUVOX) 100 mg tablet take 1 tablet by mouth every morning 90 tablet 3 famotidine (PEPCID) 20 mg tablet take 1 tablet by mouth twice a day if needed 60 tablet 1 MULTIVITAMIN/IRON/FOLIC ACID (DAILY MULTI ORAL) Take 1 tablet by mouth once daily. No current facility-administered medications for this visit. ALLERGIES Allergen Reactions Green Tea Anaphylaxis Seasonal Allergies Unknown Social History Tobacco Use Smoking status: Former Current packs/day: 0.00 Average packs/day: 0.5 packs/day for 10.0 years (5.0 ttl pk-yrs) Types: Cigarettes Start date: 10/20/2006 Quit date: 10/20/2016 Years since quittin.2 Smokeless tobacco: Never Vaping Use Vaping status: Never Used Substance Use Topics Alcohol use: No Drug use: No Review of Systems Constitutional: Negative for chills and fever. HENT: Negative for congestion and sore throat. Eyes: Negative for pain and visual disturbance. Respiratory: Negative for cough and shortness of breath. Cardiovascular: Negative for chest pain and palpitations. Gastrointestinal: Negative for abdominal pain, blood in stool, constipation, diarrhea, nausea and vomiting. Endocrine: Negative for polydipsia and polyuria. Genitourinary: Negative for dysuria and hematuria. Musculoskeletal: Negative for arthralgias and myalgias. Skin: Negative for rash. Neurological: Negative for dizziness, light-headedness and numbness. Psychiatric/Behavioral: Positive for dysphoric mood. Objective BP 119/50 Pulse 84 Resp 16 Wt 64.9 kg (143 lb 1.3 oz) BMI 23.09 kg/m Physical Exam Vitals reviewed. Constitutional: General: She is not in acute distress. Appearance: Normal appearance. HENT: Head: Normocephalic. Nose: Nose normal. No congestion or rhinorrhea. Mouth/Throat: Mouth: Mucous membranes are moist. Pharynx: Oropharynx is clear. No oropharyngeal exudate or posterior oropharyngeal erythema. Eyes: Extraocular Movements: Extraocular movements intact. Conjunctiva/sclera: Conjunctivae normal. Pupils: Pupils are equal, round, and reactive to light. Cardiovascular: Rate and Rhythm: Normal rate and regular rhythm. Pulses: Normal pulses. Heart sounds: Normal heart sounds. No murmur heard. No friction rub. No gallop. Pulmonary: Effort: Pulmonary effort is normal. Breath sounds: Normal breath sounds. No wheezing, rhonchi or rales. Musculoskeletal: General: Normal range of motion. Cervical back: Normal range of motion and neck supple. Right lower leg: No edema. Left lower leg: No edema. Lymphadenopathy: Cervical: No cervical adenopathy. Skin: General: Skin is warm and dry. Neurological: General: No focal deficit present. Mental Status: She is alert. Psychiatric: Mood and Affect: Mood normal. Behavior: Behavior normal. Latest Ref Rng 02/27/2024 Protein, Total 6.3 - 8.0 g/dL 7.6 Albumin 3.9 - 4.9 g/dL 4.4 Calcium 8.5 - 10.2 mg/dL 9.5 Bilirubin, Total 0.2 - 1.3 mg/dL 0.3 Alkaline Phosphatase 38 - 113 U/L 55 AST 14 - 40 U/L 18 ALT 10 - 54 U/L 16 Glucose 74 - 99 mg/dL 84 BUN 9 - 24 mg/dL 13 Creatinine 0.73 - 1.22 mg/dL 0.76 Sodium 136 - 144 mmol/L 135 (L) Potassium 3.7 - 5.1 mmol/L 4.3 Chloride 97 - 105 mmol/L 101 CO2 22 - 30 mmol/L 22 Anion Gap 9 - 18 mmol/L 12 eGFR >=60 mL/min/1.73m 114 Testosterone ng/dL <12 Estradiol 17B pg/mL 660 TSH 0.270 - 4.200 mIU/L 2.150 T3 79 - 165 ng/dL 96 Free T4 0.9 - 1.7 ng/dL 1.1 Legend: (L) Low Assessment and Plan Encounter Diagnosis ICD-10-CM 1. Gender incongruence F64.9 TESTOSTERONE, TOTAL BY IMMUNOASSAY (ADULT MALES, OR INDIVIDUALS ON TESTOSTERONE THERAPY) COMPLETE BLOOD COUNT AND DIFFERENTIAL BASIC METABOLIC PANEL ESTRADIOL-17B BLD CONSULT TO UROLOGY TESTOSTERONE, TOTAL BY IMMUNOASSAY (ADULT MALES, OR INDIVIDUALS ON TESTOSTERONE THERAPY) COMPLETE BLOOD COUNT AND DIFFERENTIAL BASIC METABOLIC PANEL ESTRADIOL-17B BLD 2. Hypothyroidism, acquired E03.9 THYROID STIMULATING HORMONE T4 FREE/FREE THYROXINE T3 3. Swelling of both hands M79.89 CONSULT TO ALLERGY/IMMUNOLOGY 4. Screening for lipid disorders Z13.220 LIPID PANEL, FASTING #Gender Incongruence The patient is doing well on gender affirmation hormonal therapy with estradiol and spironolactone. There are no obvious negative side effects reported. Physical changes are as expected on medical therapy. No new labs - previous Testosterone and estradiol levels are in recommended target ranges. Continue current medications and doses pending labs Emotional support provided - advised to continue to follow up with psychiatrist. Discussed need for 2 LORs for bottom surgery. Consult urology to discuss bottom surgery options. Future labs ordered today - CBC (to monitor for anemia), BMP (if on spironolactone), estradiol 17OH, total testosterone FU in 6 months for gender affirmation surveillance care, sooner PRN #Hypothyroidism Stable Repeat TFTs Continue levothyroxine 25 mcg daily #Hand swelling Unclear etiology Pt requesting to see allergy Consult to allergy RTC and ED protocol given #GHM Discussed cancer screening indications and guidelines Will be due for CRCA screening next year Pt did report having intermittent drenching night sweats at the end of the appt - advised to make another appt to further discuss. Screening lipids ordered. All pertinent side effects, risks, benefits and precautions of suggested treatments were discussed in detail. Patient understands and agrees with above treatment plan. Differential diagnosis, pathophysiology and treatment options discussed with patient and questions answered - agrees with plan. Communication and follow up are stressed. I have reviewed and updated all preliminary medical information for accuracy with the patient and corrected and completed as necessary. This note was partially generated using [employer] voice recognition system. I spent a total of 33 minutes on the date of the service which included preparing to see the patient, [id number] patient care, completing clinical documentation, obtaining and/or reviewing separately obtained history, performing a medically appropriate examination, counseling and educating the patient/family/caregiver, and ordering medications, tests, or procedures. Electronically Signed by: Rickie Cornell PA-C He/Him January 24, 2025 4:17 PM documented in this encounter [facility] 01-10-2025 Telephone encounter Note Last office visit: 07/16/23 Last virtual visit: 01/21/24 Next office visit: none Mog[employer]art message sent to patient reminding to schedule in person appointment. Pharmacy calls in requesting the following refill(s): Requested Prescriptions Pending Prescriptions Disp Refills estradiol (ESTRACE) 2 mg tablet [Pharmacy Med Name: ESTRADIOL 2 MG TABLET] 270 tablet 0 Sig: take 1 tablet by mouth three times a day Maia Peraza LPN January 10, 2025 11:39 AM [facility] 01-10-2025 Miscellaneous Notes Last office visit: 07/16/23 Last virtual visit: 01/21/24 Next office visit: none [employer] message sent to patient reminding to schedule in person appointment. Pharmacy calls in requesting the following refill(s): Requested Prescriptions Pending Prescriptions Disp Refills estradiol (ESTRACE) 2 mg tablet [Pharmacy Med Name: ESTRADIOL 2 MG TABLET] 270 tablet 0 Sig: take 1 tablet by mouth three times a day Maia Peraza LPN January 10, 2025 11:39 AM documented in this encounter [facility] 12-16-2024 History of Presen t illness Narrative BMI Obesity Medicine FollowUp Note [facility] Visit December 16, 2024 I have communicated my name and active licensure. The patient's identity and physical location were verified at the time of this visit. Either the patient or their legal claims representative has been informed of the risks and benefits of -- and alternatives to -- treatment through a remote evaluation and consents to proceed with the evaluation remotely. Patient Summary: Segundo Quezada is 44 year old Transgender Female who presents virtually for follow-up evaluation of her obesity and related complications to the [facility] Bariatric and Metabolic [place]. In our previous visits we have outlined an individualized lifestyle intervention including a personalized nutrition recommendations and physical activity optimization. SUSANA 08/20/2024: Impression: Segundo Quezada is a 44 year old adult with Body mass index is 23.4 kg/m . and the above obesity related complications. Currently taking Phentermine, responding well. Lifestyle improved and stable Plan: -- continue current lifestyle -- Continue Phentermine to prevent weight regain. If you notice your are continuing to lose weight, reduce the phentermine to 1/2 tab. -- return to clinic/virtually in 3 months Alonso Siu APRN.[employer] Initial Program Weight 215 lbs Recent Weight history: Last Wt 12/16/24 : 62.6 kg (138 lb) 08/20/24 : 65.8 kg (145 lb) 05/27/24 : 68.9 kg (152 lb) 05/18/24 : 69.1 kg (152 lb 5.4 oz) Interval History: She specifies the following items as new or significant updates since the last appointment: Returns after 3 months Reports weight is decreased since the last visit. Obesity Medications: Phentermine 37.5 mg full tab. Start Date: 03/12/2024 Weight: 167 lbs - BP 119/76 mmHg Effects Reduction of appetite S/E: none Discontinued d/t shortage Diet: - Reduced portions - Picking healthier food options - Protein shake for breakfast Exercise: - Invested in some workout equipment at home. Treadmill and virtual boxing - Walking dogs. ?Sleep: - Yes, working 3 rd shift now. ??Stress: - Manageable but the past few weeks have been tough with the new president. Review of Systems: I have confirmed and edited as necessary, the PFSH and ROS obtained by others. History reviewed in Epic Current Outpatient Medications Medication Sig spironolactone (ALDACTONE) 50 mg tablet Take 1 tablet by mouth every 12 hours. estradiol (ESTRACE) 2 mg tablet Take 1 tablet by mouth three times a day. levothyroxine (SYNTHROID) 25 mcg tablet take 1 tablet by mouth once daily traZODone (DESYREL) 50 mg tablet Take 1 tablet by mouth at bedtime as needed. busPIRone (BUSPAR) 10 mg tablet Take 1 tablet by mouth three times a day. finasteride (PROPECIA) 1 mg tablet take 1 tablet by mouth once daily fluvoxaMINE (LUVOX) 100 mg tablet take 1 tablet by mouth every morning famotidine (PEPCID) 20 mg tablet take 1 tablet by mouth twice a day if needed MULTIVITAMIN/IRON/FOLIC ACID (DAILY MULTI ORAL) Take 1 tablet by mouth once daily. No current facility-administered medications for this visit. PAST MEDICAL HISTORY Diagnosis Date Chronic depressive personality disorder Former smoker 07/17/2021 Gender dysphoria 07/17/2021 Generalized anxiety disorder Hypothyroidism Obesity 07/17/2021 Tobacco use disorder PAST SURGICAL HISTORY Procedure Laterality Date OSTEOTOMY - BODY OF MANDIBLE 07/2021 with cheek augmentation Physical Exam: Weight: 62.6 kg (138 lb) Patient reported weight. VIDEO EXAM: (if done, performed via video enabled technology) General appearance: NAD Mental status: awake and alert Pulm: not visibly SOB Neuro: speech fluent Impression: Segundo Quezada is a 44 year old adult with Body mass index is 22.27 kg/m . and the above obesity related complications. Currently taking Phentermine, responding well. Lifestyle improved and stable Plan: -- continue current lifestyle -- Continue Phentermine. -- return to clinic/virtually in 3 months I spent a total of 12 minutes on the date of the service which included preparing to see the patient, [id number] patient care, completing clinical documentation, obtaining and/or reviewing separately obtained history, performing a medically appropriate examination, counseling and educating the patient/family/caregiver, and ordering medications, tests, or procedures. Some documentation from previous visit of 08/20/2024 was copied and pasted, documentation has been reviewed and edited as necessary for today's visit. Alonso Siu APRN.[place] documented in this encounter [facility] 12-16-2024 Note HNO ID: [id number] Author: ALONSO SIU APRN.CNP Service: ? Author Type: Nurse Practitioner Type: Progress Notes Filed: 12/16/2024 16:01 Note Text: BMI Obesity Medicine FollowUp Note [facility] Visit December 16, 2024 I have communicated my name and active licensure. The patient's identity and physical location were verified at the time of this visit. Either the patient or their legal claims representative has been informed of the risks and benefits of -- and alternatives to -- treatment through a remote evaluation and consents to proceed with the evaluation remotely. Patient Summary: Segundo Quezada is 44 year old Transgender Female who presents virtually for follow-up evaluation of her obesity and related complications to the [facility] Bariatric and Metabolic [place]. In our previous visits we have outlined an individualized lifestyle intervention including a personalized nutrition recommendations and physical activity optimization. SUSANA 08/20/2024: Impression: Segundo Quezada is a 44 year old adult with Body mass index is 23.4 kg/m?. and the above obesity related complications. Currently taking Phentermine, responding well. Lifestyle improved and stable Plan: -- continue current lifestyle -- Continue Phentermine to prevent weight regain. If you notice your are continuing to lose weight, reduce the phentermine to 1/2 tab. -- return to clinic/virtually in 3 months Alonso Siu APRN.[place] Initial Program Weight 215 lbs Recent Weight history: Last Wt 12/16/24 : 62.6 kg (138 lb) 08/20/24 : 65.8 kg (145 lb) 05/27/24 : 68.9 kg (152 lb) 05/18/24 : 69.1 kg (152 lb 5.4 oz) Interval History: She specifies the following items as new or significant updates since the last appointment: Returns after 3 months Reports weight is decreased since the last visit. Obesity Medications: Phentermine 37.5 mg full tab. Start Date: 03/12/2024 Weight: 167 lbs - BP 119/76 mmHg Effects Reduction of appetite S/E: none Discontinued d/t shortage Diet: - Reduced portions - Picking healthier food options - Protein shake for breakfast Exercise: - Invested in some workout equipment at home. Treadmill and virtual boxing - Walking dogs. ?Sleep: - Yes, working 3 rd shift now. ??Stress: - Manageable but the past few weeks have been tough with the new president. Review of Systems: I have confirmed and edited as necessary, the PFSH and ROS obtained by others. History reviewed in Epic Current Outpatient Medications Medication Sig spironolactone (ALDACTONE) 50 mg tablet Take 1 tablet by mouth every 12 hours. estradiol (ESTRACE) 2 mg tablet Take 1 tablet by mouth three times a day. levothyroxine (SYNTHROID) 25 mcg tablet take 1 tablet by mouth once daily traZODone (DESYREL) 50 mg tablet Take 1 tablet by mouth at bedtime as needed. busPIRone (BUSPAR) 10 mg tablet Take 1 tablet by mouth three times a day. finasteride (PROPECIA) 1 mg tablet take 1 tablet by mouth once daily fluvoxaMINE (LUVOX) 100 mg tablet take 1 tablet by mouth every morning famotidine (PEPCID) 20 mg tablet take 1 tablet by mouth twice a day if needed MULTIVITAMIN/IRON/FOLIC ACID (DAILY MULTI ORAL) Take 1 tablet by mouth once daily. No current facility-administered medications for this visit. PAST MEDICAL HISTORY Diagnosis Date Chronic depressive personality disorder Former smoker 07/17/2021 Gender dysphoria 07/17/2021 Generalized anxiety disorder Hypothyroidism Obesity 07/17/2021 Tobacco use disorder PAST SURGICAL HISTORY Procedure Laterality Date OSTEOTOMY - BODY OF MANDIBLE 07/2021 with cheek augmentation Physical Exam: Weight: 62.6 kg (138 lb) Patient reported weight. VIDEO EXAM: (if done, performed via video enabled technology) General appearance: NAD Mental status: awake and alert Pulm: not visibly SOB Neuro: speech fluent Impression: Segundo Quezada is a 44 year old adult with Body mass index is 22.27 kg/m?. and the above obesity related complications. Currently taking Phentermine, responding well. Lifestyle improved and stable Plan: -- continue current lifestyle -- Continue Phentermine. -- return to clinic/virtually in 3 months I spent a total of 12 minutes on the date of the service which included preparing to see the patient, [id number] patient care, completing clinical documentation, obtaining and/or reviewing separately obtained history, performing a medically appropriate examination, counseling and educating the patient/family/caregiver, and ordering medications, tests, or procedures. Some documentation from previous visit of 08/20/2024 was copied and pasted, documentation has been reviewed and edited as necessary for today's visit. Alonso Siu APRN.[facility] 11-29-2024 Telephone encounter Note Sent MCM. [facility] 11-29-2024 Miscellaneous Notes Sent MCM. I will fill Rx as requested. The patient is overdue for a visit. Please remind the patient to set up a medication surveillance visit. Thank you! Pharmacy calls in requesting the following refill(s): Last VV 01/21/24 No future appt Requested Prescriptions Pending Prescriptions Disp Refills spironolactone (ALDACTONE) 50 mg tablet [Pharmacy Med Name: SPIRONOLACTONE 50 MG TABLET] 180 tablet 1 Sig: Take 1 tablet by mouth every 12 hours. documented in this encounter [facility] 11-29-2024 Telephone encounter Note I will fill Rx as requested. The patient is overdue for a visit. Please remind the patient to set up a medication surveillance visit. Thank you! [facility] 11-29-2024 Telephone encounter Note Pharmacy calls in requesting the following refill(s): Last VV 01/21/24 No future appt Requested Prescriptions Pending Prescriptions Disp Refills spironolactone (ALDACTONE) 50 mg tablet [Pharmacy Med Name: SPIRONOLACTONE 50 MG TABLET] 180 tablet 1 Sig: Take 1 tablet by mouth every 12 hours. [facility] 10-18-2024 Telephone encounter Note Agree with need for in person appt. Labs ordered. Rx filed. [facility] 10-18-2024 Miscellaneous Notes Agree with need for in person appt. Labs ordered. Rx filed. Last appt in January. Nothing scheduled for future. Sent MCM she needs to schedule an IN PERSON visit. Patient requests via MyChart refills as follows: Requested Prescriptions Pending Prescriptions Disp Refills estradiol (ESTRACE) 2 mg tablet 270 tablet 1 Sig: Take 1 tablet by mouth three times a day. Please review and advise. Yina Madsen MA Patient following up with refill request and asking for a call back once sent to pharmacy. Contact Information [phone] Thank you documented in this encounter [facility] 10-18-2024 Telephone encounter Note Duplicate. [facility] 10-18-2024 Miscellaneous Notes Duplicate. documented in this encounter [facility] 10-18-2024 Telephone encounter Note Last appt in January. Nothing scheduled for future. Sent MCM she needs to schedule an IN PERSON visit. Patient requests via MyChart refills as follows: Requested Prescriptions Pending Prescriptions Disp Refills estradiol (ESTRACE) 2 mg tablet 270 tablet 1 Sig: Take 1 tablet by mouth three times a day. Please review and advise. Yina Madsen MA [facility] 10-18-2024 Note HNO ID: [id number] Author: DAMON BELLO RN Service: ? Author Type: Registered Nurse Type: Progress Notes Filed: 10/18/2024 11:54 Note Text: POPULATION HEALTH NAVIGATION OUTREACH Action/FYI Last [employer] message sent to patient Reason for Outreach Care Gap/HCC or Scheduling Wellness Visits Care Gaps due: Follow-up Appointment Navigation Signature: Damon Bello RN October 18, 2024 11:53 AM [facility] 10-18-2024 History of Presen t illness Narrative POPULATION HEALTH NAVIGATION OUTREACH Action/FYI Universal [employer] message sent to patient Reason for Outreach Care Gap/HCC or Scheduling Wellness Visits Care Gaps due: Follow-up Appointment Navigation Signature: Damon Bello RN October 18, 2024 11:53 AM documented in this encounter [facility] 10-18-2024 Telephone encounter Note Patient following up with refill request and asking for a call back once sent to pharmacy. Contact Information [phone] Thank you [facility] 10-18-2024 Note Patient Outreach (IN TLKB) SEGUNDO QUEZADA ([id number]) 1980 M T Date Time Provider Department 10/18/24 JARED SCHILLING During your visit today, we recorded the following information about you: Damon Bello RN 10/18/2024 11:54 AM Signed POPULATION HEALTH NAVIGATION OUTREACH Action/meets message sent to patient Reason for Outreach Care Gap/HCC or Scheduling Wellness Visits Care Gaps due: Follow-up Appointment Navigation Signature: Damon Bello RN October 18, 2024 11:53 AM Allergies As of Date: 10/18/2024 (No Known Allergies) Date Reviewed: 08/20/2024 Reviewed by: Alonso Siu APRN.[employer] - Fully Assessed Prescriptions as of 10/18/2024 - levothyroxine (SYNTHROID) 25 mcg tablet take 1 tablet by mouth once daily - traZODone (DESYREL) 50 mg tablet Take 1 tablet by mouth at bedtime as needed. - Phentermine HCl 37.5 mg tablet Take 1 tablet by mouth once daily for 90 days. - busPIRone (BUSPAR) 10 mg tablet Take 1 tablet by mouth three times a day. - spironolactone (ALDACTONE) 50 mg tablet take 1 tablet by mouth every 12 hours - finasteride (PROPECIA) 1 mg tablet take 1 tablet by mouth once daily - estradiol (ESTRACE) 2 mg tablet Take 1 tablet by mouth three times a day. - fluvoxaMINE (LUVOX) 100 mg tablet take 1 tablet by mouth every morning - famotidine (PEPCID) 20 mg tablet take 1 tablet by mouth twice a day if needed - MULTIVITAMIN/IRON/FOLIC ACID (DAILY MULTI ORAL) Take 1 tablet by mouth once daily. Problem List As Of Date 10/18/2024 Noted Resolved Cellulitis and abscess of unspecified site [L03*02/13/2009 08/10/2019 History of 2019 novel coronavirus disease (COVI*11/10/2020 Drug reaction [T50.905A] 11/10/2020 04/12/2022 Gender dysphoria [F64.9] 07/17/2021 Obesity [E66.9] 07/17/2021 Former smoker [Z87.891] 07/17/2021 Concern about skin disease without diagnosis [Z*09/04/2021 Nasal valve collapse [J34.829] 04/12/2022 12/23/2023 Nasal septal deviation [J34.2] 04/12/2022 12/23/2023 Hypothyroidism [E03.9] Anxiety and depression [F41.9, F32.A] Dyspepsia [R10.13] 04/22/2022 Insomnia [G47.00] 01/13/2023 Recurrent UTI [N39.0] 05/05/2023 Pilonidal cyst with abscess [L05.01] 05/22/2023 12/23/2023 Diagnosed: 05/22/2023 Sinus headache [R51.9] 01/13/2023 12/23/2023 Diagnosed: 05/22/2023 Anal or rectal pain [K62.89] 06/26/2023 12/23/2023 Encounter Status:Closed by DAMON BELLO on 10/18/24 [facility] 09-10-2024 Telephone encounter Note I will fill Rx as requested. The patient is overdue for a visit. Please remind the patient to set up a medication surveillance visit. Thank you! [facility] 09-10-2024 Miscellaneous Notes I will fill Rx as requested. The patient is overdue for a visit. Please remind the patient to set up a medication surveillance visit. Thank you! Last office visit: 07/16/24 Last virtual visit: 01/21/24 Next office visit: none Pharmacy calls in requesting the following refill(s): Requested Prescriptions Pending Prescriptions Disp Refills levothyroxine (SYNTHROID) 25 mcg tablet [Pharmacy Med Name: LEVOTHYROXINE 25 MCG TABLET] 180 tablet 3 Sig: take 1 tablet by mouth once daily Maia Peraza LPN September 10, 2024 10:37 AM documented in this encounter [facility] 09-10-2024 Telephone encounter Note Last office visit: 07/16/24 Last virtual visit: 01/21/24 Next office visit: none Pharmacy calls in requesting the following refill(s): Requested Prescriptions Pending Prescriptions Disp Refills levothyroxine (SYNTHROID) 25 mcg tablet [Pharmacy Med Name: LEVOTHYROXINE 25 MCG TABLET] 180 tablet 3 Sig: take 1 tablet by mouth once daily Maia Peraza LPN September 10, 2024 10:37 AM [facility] 08-23-2024 Telephone encounter Note Lv 01/21/24 Next appt not scheduled Pharmacy electronically requests the following refill(s) Requested Prescriptions Pending Prescriptions Disp Refills traZODone (DESYREL) 50 mg tablet [Pharmacy Med Name: TRAZODONE 50 MG TABLET] 30 tablet 5 Sig: Take 1 tablet by mouth at bedtime as needed. Dale Padgett LPN [facility] 08-23-2024 Miscellaneous Notes Lv 01/21/24 Next appt not scheduled Pharmacy electronically requests the following refill(s) Requested Prescriptions Pending Prescriptions Disp Refills traZODone (DESYREL) 50 mg tablet [Pharmacy Med Name: TRAZODONE 50 MG TABLET] 30 tablet 5 Sig: Take 1 tablet by mouth at bedtime as needed. Dale Padgett LPN documented in this encounter [facility] 08-20-2024 History of Presen t illness Narrative BMI Obesity Medicine FollowUp Note Distance Health Visit August 20, 2024 I have communicated my name and active licensure. The patient's identity and physical location were verified at the time of this visit. Either the patient or their legal claims representative has been informed of the risks and benefits of -- and alternatives to -- treatment through a remote evaluation and consents to proceed with the evaluation remotely. Patient Summary: Segundo Quezada is 44 year old Transgender Female who presents virtually for follow-up evaluation of her obesity and related complications to the [facility] Bariatric and Metabolic [place]. In our previous visits we have outlined an individualized lifestyle intervention including a personalized nutrition recommendations and physical activity optimization. [facility] 05/27/2024: Impression: Segundo Quezada is a 43 year old adult with a hx of Class 2 Obesity and the above obesity related complications. Body mass index is 24.53 kg/m . Currently taking Phentermine, responding well. Lifestyle improved Plan: -- continue current lifestyle -- Continue Phentermine. -- return to clinic/virtually in 3 months I spent a total of 12 minutes on the date of the service which included preparing to see the patient, [id number] patient care, completing clinical documentation, obtaining and/or reviewing separately obtained history, performing a medically appropriate examination, counseling and educating the patient/family/caregiver, and ordering medications, tests, or procedures. Some documentation from previous visit of was copied and pasted, documentation has been reviewed and edited as necessary for today's visit. Alonso Siu APRN.[employer] Initial Program Weight 215 lbs Recent Weight history: Last Wt 08/20/24 : 65.8 kg (145 lb) 05/27/24 : 68.9 kg (152 lb) 05/18/24 : 69.1 kg (152 lb 5.4 oz) 05/03/24 : 70.5 kg (155 lb 6.8 oz) Interval History: She specifies the following items as new or significant updates since the last appointment: Returns after 3 months Reports weight is decreased since the last visit. Obesity Medications: Phentermine 37.5 mg full tab. Start Date: 03/12/2024 Weight: 167 lbs - Started to prevent weight regain after discontinuing the Trulicity d/t medication shortage. Effects Reduction of appetite and helps her focus throughout the day S/E: none Discontinued d/t shortage. Diet: - Reduced portions - Picking healthier food options - Protein shake for breakfast Exercise: - Gym 3 nights per week - 1-1.5 mile walk daily with dogs ?Sleep: - Sleeping well, taking trazodone. I sleep fine ??Stress: - Manageable usually. Review of Systems: I have confirmed and edited as necessary, the PFSH and ROS obtained by others. History reviewed in Epic Current Outpatient Medications Medication Sig busPIRone (BUSPAR) 10 mg tablet Take 1 tablet by mouth three times a day. Phentermine HCl 37.5 mg tablet Take 1 tablet by mouth once daily for 90 days. spironolactone (ALDACTONE) 50 mg tablet take 1 tablet by mouth every 12 hours traZODone (DESYREL) 50 mg tablet Take 1 tablet by mouth at bedtime as needed. finasteride (PROPECIA) 1 mg tablet take 1 tablet by mouth once daily estradiol (ESTRACE) 2 mg tablet Take 1 tablet by mouth three times a day. fluvoxaMINE (LUVOX) 100 mg tablet take 1 tablet by mouth every morning levothyroxine (SYNTHROID) 25 mcg tablet take 1 tablet by mouth once daily famotidine (PEPCID) 20 mg tablet take 1 tablet by mouth twice a day if needed MULTIVITAMIN/IRON/FOLIC ACID (DAILY MULTI ORAL) Take 1 tablet by mouth once daily. No current facility-administered medications for this visit. PAST MEDICAL HISTORY Diagnosis Date Chronic depressive personality disorder Former smoker 07/17/2021 Gender dysphoria 07/17/2021 Generalized anxiety disorder Hypothyroidism Obesity 07/17/2021 Tobacco use disorder PAST SURGICAL HISTORY Procedure Laterality Date OSTEOTOMY - BODY OF MANDIBLE 07/2021 with cheek augmentation Physical Exam: Weight: 65.8 kg (145 lb) Patient reported weight. VIDEO EXAM: (if done, performed via video enabled technology) General appearance: NAD Mental status: awake and alert Pulm: not visibly SOB Neuro: speech fluent Impression: Segundo Quezada is a 44 year old adult with Body mass index is 23.4 kg/m . and the above obesity related complications. Currently taking Phentermine, responding well. Lifestyle improved and stable Plan: -- continue current lifestyle -- Continue Phentermine to prevent weight regain. If you notice your are continuing to lose weight, reduce the phentermine to 1/2 tab. -- return to clinic/virtually in 3 months I spent a total of 12 minutes on the date of the service which included preparing to see the patient, [id number] patient care, completing clinical documentation, obtaining and/or reviewing separately obtained history, performing a medically appropriate examination, counseling and educating the patient/family/caregiver, and ordering medications, tests, or procedures. Some documentation from previous visit of 05/27/2024 was copied and pasted, documentation has been reviewed and edited as necessary for today's visit. Alonso Siu APRN.CNP If you were prescribed a medication today, please allow a minimum of 2 weeks for this to be completed. One of our Obesity Medicine support members will reach out to you once this is completed or if they need additional information. Additional inquiries on this request can delay this process. Please keep in mind: We understand that many medications are effective for weight loss and treating other conditions related to obesity. However, insurance coverage isn't always guaranteed. If your medication is denied due to plan exclusions or not meeting coverage criteria, we won't pursue an appeal. documented in this encounter [facility] 08-20-2024 Note HNO ID: [id number] Author: ALONSO SIU APRN.CNP Service: ? Author Type: Nurse Practitioner Type: Progress Notes Filed: 08/20/2024 10:58 Note Text: BMI Obesity Medicine FollowUp Note Distance Health Visit August 20, 2024 I have communicated my name and active licensure. The patient's identity and physical location were verified at the time of this visit. Either the patient or their legal claims representative has been informed of the risks and benefits of -- and alternatives to -- treatment through a remote evaluation and consents to proceed with the evaluation remotely. Patient Summary: Segundo Quezada is 44 year old Transgender Female who presents virtually for follow-up evaluation of her obesity and related complications to the [facility] Bariatric and Metabolic [place]. In our previous visits we have outlined an individualized lifestyle intervention including a personalized nutrition recommendations and physical activity optimization. [facility] 05/27/2024: Impression: Segundo Quezada is a 43 year old adult with a hx of Class 2 Obesity and the above obesity related complications. Body mass index is 24.53 kg/m?. Currently taking Phentermine, responding well. Lifestyle improved Plan: -- continue current lifestyle -- Continue Phentermine. -- return to clinic/virtually in 3 months I spent a total of 12 minutes on the date of the service which included preparing to see the patient, [id number] patient care, completing clinical documentation, obtaining and/or reviewing separately obtained history, performing a medically appropriate examination, counseling and educating the patient/family/caregiver, and ordering medications, tests, or procedures. Some documentation from previous visit of was copied and pasted, documentation has been reviewed and edited as necessary for today's visit. Alonso Siu APRN.[employer] Initial Program Weight 215 lbs Recent Weight history: Last Wt 08/20/24 : 65.8 kg (145 lb) 05/27/24 : 68.9 kg (152 lb) 05/18/24 : 69.1 kg (152 lb 5.4 oz) 05/03/24 : 70.5 kg (155 lb 6.8 oz) Interval History: She specifies the following items as new or significant updates since the last appointment: Returns after 3 months Reports weight is decreased since the last visit. Obesity Medications: Phentermine 37.5 mg full tab. Start Date: 03/12/2024 Weight: 167 lbs - Started to prevent weight regain after discontinuing the Trulicity d/t medication shortage. Effects Reduction of appetite and helps her focus throughout the day S/E: none Discontinued d/t shortage. Diet: - Reduced portions - Picking healthier food options - Protein shake for breakfast Exercise: - Gym 3 nights per week - 1-1.5 mile walk daily with dogs ?Sleep: - Sleeping well, taking trazodone. I sleep fine ??Stress: - Manageable usually. Review of Systems: I have confirmed and edited as necessary, the PFSH and ROS obtained by others. History reviewed in [facility] Current Outpatient Medications Medication Sig busPIRone (BUSPAR) 10 mg tablet Take 1 tablet by mouth three times a day. Phentermine HCl 37.5 mg tablet Take 1 tablet by mouth once daily for 90 days. spironolactone (ALDACTONE) 50 mg tablet take 1 tablet by mouth every 12 hours traZODone (DESYREL) 50 mg tablet Take 1 tablet by mouth at bedtime as needed. finasteride (PROPECIA) 1 mg tablet take 1 tablet by mouth once daily estradiol (ESTRACE) 2 mg tablet Take 1 tablet by mouth three times a day. fluvoxaMINE (LUVOX) 100 mg tablet take 1 tablet by mouth every morning levothyroxine (SYNTHROID) 25 mcg tablet take 1 tablet by mouth once daily famotidine (PEPCID) 20 mg tablet take 1 tablet by mouth twice a day if needed MULTIVITAMIN/IRON/FOLIC ACID (DAILY MULTI ORAL) Take 1 tablet by mouth once daily. No current facility-administered medications for this visit. PAST MEDICAL HISTORY Diagnosis Date Chronic depressive personality disorder Former smoker 07/17/2021 Gender dysphoria 07/17/2021 Generalized anxiety disorder Hypothyroidism Obesity 07/17/2021 Tobacco use disorder PAST SURGICAL HISTORY Procedure Laterality Date OSTEOTOMY - BODY OF MANDIBLE 07/2021 with cheek augmentation Physical Exam: Weight: 65.8 kg (145 lb) Patient reported weight. VIDEO EXAM: (if done, performed via video enabled technology) General appearance: NAD Mental status: awake and alert Pulm: not visibly SOB Neuro: speech fluent Impression: Segundo Quezada is a 44 year old adult with Body mass index is 23.4 kg/m?. and the above obesity related complications. Currently taking Phentermine, responding well. Lifestyle improved and stable Plan: -- continue current lifestyle -- Continue Phentermine to prevent weight regain. If you notice your are continuing to lose weight, reduce the phentermine to 1/2 tab. -- return to clinic/virtually in 3 months I spent a total of 12 minutes on the date of the service which included (more content not included)... [facility] 07-15-2024 Telephone encounter Note Pharmacy electronically requests the following refill(s) Last visit 01/21/24 No future appt ' Requested Prescriptions Pending Prescriptions Disp Refills busPIRone (BUSPAR) 10 mg tablet 90 tablet 5 Sig: Take 1 tablet by mouth three times a day. Donna Martinez LPN [facility] 07-15-2024 Miscellaneous Notes Pharmacy electronically requests the following refill(s) Last visit 01/21/24 No future appt ' Requested Prescriptions Pending Prescriptions Disp Refills busPIRone (BUSPAR) 10 mg tablet 90 tablet 5 Sig: Take 1 tablet by mouth three times a day. Donna Martinez LPN Pharmacy electronically requests the following refill(s) Requested Prescriptions Pending Prescriptions Disp Refills busPIRone (BUSPAR) 10 mg tablet 90 tablet 2 Sig: Take 1 tablet by mouth three times a day. Donna Martinez LPN documented in this encounter [facility] 07-15-2024 Telephone encounter Note Pharmacy electronically requests the following refill(s) Requested Prescriptions Pending Prescriptions Disp Refills busPIRone (BUSPAR) 10 mg tablet 90 tablet 2 Sig: Take 1 tablet by mouth three times a day. Donna Martinez LPN [facility] 05-27-2024 History of Presen t illness Narrative BMI Obesity Medicine FollowUp Note Distance Health Visit May 27, 2024 I have communicated my name and active licensure. The patient's identity and physical location were verified at the time of this visit. Either the patient or their legal claims representative has been informed of the risks and benefits of -- and alternatives to -- treatment through a remote evaluation and consents to proceed with the evaluation remotely. Patient Summary: Segundo Quezada is 43 year old Transgender Female who presents virtually for follow-up evaluation of her obesity and related complications to the [facility] Bariatric and Metabolic [place]. In our previous visits we have outlined an individualized lifestyle intervention including a personalized nutrition recommendations and physical activity optimization. [facility] 03/12/2024: Impression: Segundo Quezada is a 43 year old year old adult with a hx of Class I obesity and the above obesity related complications. Body mass index is 26.95 kg/m . Currently taking Dulaglutide (Trulicity)., responding well however stopped a week ago because she cannot obtain the medication d/t the shortage. She would like to try a pill form of AOM. Will try phentermine to prevent weight regain. Discussed common s/e and provided drug information via [employer] message. Lifestyle improved Currently Motivated. Plan: -- continue improving diet and exercise. -- New Phentermine 37.5 mg 1/2 tab in AM. After 1 week, if needed, can increase to full tab. -- return to clinic/virtually in 3 months I spent a total of 15 minutes on the date of the service which included preparing to see the patient, [id number] patient care, completing clinical documentation, obtaining and/or reviewing separately obtained history, performing a medically appropriate examination, counseling and educating the patient/family/caregiver, and ordering medications, tests, or procedures. Alonso Siu APRN.[employer] Initial Program Weight 215 lbs Recent Weight history: Last Wt 05/27/24 : 68.9 kg (152 lb) 05/18/24 : 69.1 kg (152 lb 5.4 oz) 05/03/24 : 70.5 kg (155 lb 6.8 oz) 03/12/24 : 75.8 kg (167 lb) Interval History: She specifies the following items as new or significant updates since the last appointment: Returns after 3 months Reports weight is decreased since the last visit. Obesity Medications: Phentermine 37/5 mg full tab. Start Date: 03/12/2024 Weight: 167 lbs - Started to prevent weight regain after discontinuing the Trulicity d/t medication shortage. Effects Reduction of appetite and improved ADD symptoms. S/E: none Discontinued d/t shortage. Diet: - Reduced portions - Picking healthier food options - Protein shake for breakfast Exercise: - Gym 3 nights per week - 1-1.5 mile walk daily with dogs ?Sleep: - Sleeping well, taking trazodone. I sleep fine ??Stress: - Manageable. Review of Systems: I have confirmed and edited as necessary, the PFSH and ROS obtained by others. History reviewed in [facility] Current Outpatient Medications Medication Sig Phentermine HCl 37.5 mg tablet Take 1 tablet by mouth once daily for 90 days. spironolactone (ALDACTONE) 50 mg tablet take 1 tablet by mouth every 12 hours traZODone (DESYREL) 50 mg tablet Take 1 tablet by mouth at bedtime as needed. finasteride (PROPECIA) 1 mg tablet take 1 tablet by mouth once daily estradiol (ESTRACE) 2 mg tablet Take 1 tablet by mouth three times a day. fluvoxaMINE (LUVOX) 100 mg tablet take 1 tablet by mouth every morning busPIRone (BUSPAR) 10 mg tablet take 1 tablet by mouth three times a day levothyroxine (SYNTHROID) 25 mcg tablet take 1 tablet by mouth once daily famotidine (PEPCID) 20 mg tablet take 1 tablet by mouth twice a day if needed MULTIVITAMIN/IRON/FOLIC ACID (DAILY MULTI ORAL) Take 1 tablet by mouth once daily. No current facility-administered medications for this visit. PAST MEDICAL HISTORY No date: Chronic depressive personality disorder 07/17/2021: Former smoker 07/17/2021: Gender dysphoria No date: Generalized anxiety disorder No date: Hypothyroidism 07/17/2021: Obesity No date: Tobacco use disorder PAST SURGICAL HISTORY 07/2021: OSTEOTOMY - BODY OF MANDIBLE Comment: with cheek augmentation Physical Exam: Wt 68.9 kg (152 lb) BMI 24.53 kg/m VIDEO EXAM: (if done, performed via video enabled technology) General appearance: NAD Mental status: awake and alert Pulm: not visibly SOB Neuro: speech fluent Impression: Segundo Quezada is a 43 year old adult with a hx of Class 2 Obesity and the above obesity related complications. Body mass index is 24.53 kg/m . Currently taking Phentermine, responding well. Lifestyle improved Plan: -- continue current lifestyle -- Continue Phentermine. -- return to clinic/virtually in 3 months I spent a total of 12 minutes on the date of the service which included preparing to see the patient, [id number] patient care, completing clinical documentation, obtaining and/or reviewing separately obtained history, performing a medically appropriate examination, counseling and educating the patient/family/caregiver, and ordering medications, tests, or procedures. Some documentation from previous visit of was copied and pasted, documentation has been reviewed and edited as necessary for today's visit. Alonso Siu APRN.[place] documented in this encounter [facility] 05-27-2024 Note HNO ID: [id number] Author: ALONSO SIU APRN.CNP Service: ? Author Type: Nurse Practitioner Type: Progress Notes Filed: 05/27/2024 08:56 Note Text: BMI Obesity Medicine FollowUp Note [facility] Visit May 27, 2024 I have communicated my name and active licensure. The patient's identity and physical location were verified at the time of this visit. Either the patient or their legal claims representative has been informed of the risks and benefits of -- and alternatives to -- treatment through a remote evaluation and consents to proceed with the evaluation remotely. Patient Summary: Segundo Quezada is 43 year old Transgender Female who presents virtually for follow-up evaluation of her obesity and related complications to the [facility] Bariatric and Metabolic [place]. In our previous visits we have outlined an individualized lifestyle intervention including a personalized nutrition recommendations and physical activity optimization. [facility] 03/12/2024: Impression: Segundo Quezada is a 43 year old year old adult with a hx of Class I obesity and the above obesity related complications. Body mass index is 26.95 kg/m?. Currently taking Dulaglutide (Trulicity)., responding well however stopped a week ago because she cannot obtain the medication d/t the shortage. She would like to try a pill form of AOM. Will try phentermine to prevent weight regain. Discussed common s/e and provided drug information via [employer] message. Lifestyle improved Currently Motivated. Plan: -- continue improving diet and exercise. -- New Phentermine 37.5 mg 1/2 tab in AM. After 1 week, if needed, can increase to full tab. -- return to clinic/virtually in 3 months I spent a total of 15 minutes on the date of the service which included preparing to see the patient, [id number] patient care, completing clinical documentation, obtaining and/or reviewing separately obtained history, performing a medically appropriate examination, counseling and educating the patient/family/caregiver, and ordering medications, tests, or procedures. Alonso Siu APRN.[facility] Initial Program Weight 215 lbs Recent Weight history: Last Wt 05/27/24 : 68.9 kg (152 lb) 05/18/24 : 69.1 kg (152 lb 5.4 oz) 05/03/24 : 70.5 kg (155 lb 6.8 oz) 03/12/24 : 75.8 kg (167 lb) Interval History: She specifies the following items as new or significant updates since the last appointment: Returns after 3 months Reports weight is decreased since the last visit. Obesity Medications: Phentermine 37/5 mg full tab. Start Date: 03/12/2024 Weight: 167 lbs - Started to prevent weight regain after discontinuing the Trulicity d/t medication shortage. Effects Reduction of appetite and improved ADD symptoms. S/E: none Discontinued d/t shortage. Diet: - Reduced portions - Picking healthier food options - Protein shake for breakfast Exercise: - Gym 3 nights per week - 1-1.5 mile walk daily with dogs ?Sleep: - Sleeping well, taking trazodone. I sleep fine ??Stress: - Manageable. Review of Systems: I have confirmed and edited as necessary, the PFSH and ROS obtained by others. History reviewed in [facility] Current Outpatient Medications Medication Sig Phentermine HCl 37.5 mg tablet Take 1 tablet by mouth once daily for 90 days. spironolactone (ALDACTONE) 50 mg tablet take 1 tablet by mouth every 12 hours traZODone (DESYREL) 50 mg tablet Take 1 tablet by mouth at bedtime as needed. finasteride (PROPECIA) 1 mg tablet take 1 tablet by mouth once daily estradiol (ESTRACE) 2 mg tablet Take 1 tablet by mouth three times a day. fluvoxaMINE (LUVOX) 100 mg tablet take 1 tablet by mouth every morning busPIRone (BUSPAR) 10 mg tablet take 1 tablet by mouth three times a day levothyroxine (SYNTHROID) 25 mcg tablet take 1 tablet by mouth once daily famotidine (PEPCID) 20 mg tablet take 1 tablet by mouth twice a day if needed MULTIVITAMIN/IRON/FOLIC ACID (DAILY MULTI ORAL) Take 1 tablet by mouth once daily. No current facility-administered medications for this visit. PAST MEDICAL HISTORY No date: Chronic depressive personality disorder 07/17/2021: Former smoker 07/17/2021: Gender dysphoria No date: Generalized anxiety disorder No date: Hypothyroidism 07/17/2021: Obesity No date: Tobacco use disorder PAST SURGICAL HISTORY 07/2021: OSTEOTOMY - BODY OF MANDIBLE Comment: with cheek augmentation Physical Exam: Wt 68.9 kg (152 lb) BMI 24.53 kg/m? VIDEO EXAM: (if done, performed via video enabled technology) General appearance: NAD Mental status: awake and alert Pulm: not visibly SOB Neuro: speech fluent Impression: Segundo Quezada is a 43 year old adult with a hx of Class 2 Obesity and the above obesity related complications. Body mass index is 24.53 kg/m?. Currently taking Phentermine, responding well. Lifestyle improved Plan: -- continue current lifestyle -- Continue Phentermine. -- return to clin (more content not included)... [facility] 05-18-2024 Note HNO ID: [id number] Author: ELSIE BROCK PA Service: ? 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 Patient states she has felt short of breath for the past 3 days. She has pain and pressure on the left side of her chest radiating towards her back. She has had some nasal congestion, but no cough. No fevers. She has a pneumonia in the past, but states this does not feel similar. She states she has never had this pain before in her chest. Pain is an 8/10. Due to chest pain, did recommend evaluation in the emergency room. Patient declines EMS, feels comfortable driving herself. Vital stable here. [facility] 08-06-2024 History of Presen t illness Narrative 43-year-old female presents for left-sided chest pain, shortness of breath. Patient states she has felt short of breath for the past 3 days. She has pain and pressure on the left side of her chest radiating towards her back. She has had some nasal congestion, but no cough. No fevers. She has a pneumonia in the past, but states this does not feel similar. She states she has never had this pain before in her chest. Pain is an 8/10. Due to chest pain, did recommend evaluation in the emergency room. Patient declines EMS, feels comfortable driving herself. Vital stable here. documented in this encounter [facility] 05-18-2024 Telephone encounter Note Last appointment within department: 01/21/2024 ([facility] Appointment) Next appointment with department: Visit date not found Pharmacy escripts requesting the following refill: Requested Prescriptions Pending Prescriptions Disp Refills spironolactone (ALDACTONE) 50 mg tablet [Pharmacy Med Name: SPIRONOLACTONE 50 MG TABLET] 180 tablet 1 Sig: take 1 tablet by mouth every 12 hours Please review and advise. JEAN CARLOS Vega [facility] 05-18-2024 Miscellaneous Notes Last appointment within department: 01/21/2024 ([facility]) Next appointment with department: Visit date not found Pharmacy escripts requesting the following refill: Requested Prescriptions Pending Prescriptions Disp Refills spironolactone (ALDACTONE) 50 mg tablet [Pharmacy Med Name: SPIRONOLACTONE 50 MG TABLET] 180 tablet 1 Sig: take 1 tablet by mouth every 12 hours Please review and advise. JEAN CARLOS Vega documented in this encounter [facility] 05-05-2024 Telephone encounter Note Patient notified of results, verbalized understanding of instructions given. Erin Irizarry MA [facility] 05-05-2024 Miscellaneous Notes Patient notified of results, verbalized understanding of instructions given. Erin Irizarry MA Please inform patient urine culture was negative for significant bacterial growth. May discontinue antibiotics as discussed during visit. Follow-up with PCP or urology if symptoms persist. Bert Jacobs APRN.[place] documented in this encounter [facility] 05-05-2024 Telephone encounter Note Please inform patient urine culture was negative for significant bacterial growth. May discontinue antibiotics as discussed during visit. Follow-up with PCP or urology if symptoms persist. Bert Jacobs APRN.[place] [facility] Work Phone: 05-03-2024 History of Presen t illness Narrative Patient presents with: Urinary Frequency: burning with urination x 1 week, stepped on a alen tack, right foot x this am HPI: Symptoms for 1 week. Dysuria: Yes Frequency: Yes Hematuria: No Nausea: Yes Fever or chills: feels poorly, no fever Back pain: No CVA pain Abdominal pain: Yes, cramping Prior UTI: Yes. Monogamous with , denies risk of STI. Has penis. 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 She stepped on a tack with her right foot this morning while walking barefoot. She is certain the entire tack was removed but it was alen. Had tetanus booster 02/11/2022. PAST MEDICAL HISTORY Diagnosis Date Chronic depressive personality disorder Former smoker 07/17/2021 Gender dysphoria 07/17/2021 Generalized anxiety disorder Hypothyroidism Obesity 07/17/2021 Tobacco use disorder ACTIVE PROBLEM LIST History of 2019 Novel Coronavirus Disease (Covid-19) Gender Dysphoria Obesity Former Smoker Concern About Skin Disease Without Diagnosis Hypothyroidism Anxiety and Depression Dyspepsia Insomnia Recurrent Uti PAST SURGICAL HISTORY Procedure Laterality Date OSTEOTOMY - BODY OF MANDIBLE 07/2021 with cheek augmentation MEDICATIONS: Current Outpatient Medications Medication Sig Phentermine HCl 37.5 mg tablet Take 1 tablet by mouth once daily for 90 days. dulaglutide (TRULICITY) 3 mg/0.5 mL pen injector Inject 3 mg subcutaneously one time a week. traZODone (DESYREL) 50 mg tablet Take 1 tablet by mouth at bedtime as needed. finasteride (PROPECIA) 1 mg tablet take 1 tablet by mouth once daily estradiol (ESTRACE) 2 mg tablet Take 1 tablet by mouth three times a day. spironolactone (ALDACTONE) 50 mg tablet Take 1 tablet by mouth every 12 hours. fluvoxaMINE (LUVOX) 100 mg tablet take 1 tablet by mouth every morning busPIRone (BUSPAR) 10 mg tablet take 1 tablet by mouth three times a day levothyroxine (SYNTHROID) 25 mcg tablet take 1 tablet by mouth once daily famotidine (PEPCID) 20 mg tablet take 1 tablet by mouth twice a day if needed MULTIVITAMIN/IRON/FOLIC ACID (DAILY MULTI ORAL) Take 1 tablet by mouth once daily. Syringe with Needle, Disp, 1 mL 25 gauge x 1 syrg 1 Each one time a week. Needle, Disp, 18 G 18 gauge x 1 1/2 1 Each one time a week. alcohol swabs Apply 1 Each to affected area one time a week. Oral Medication Containers (SHARPS CONTAINER) [facility] [place] Use as needed weekly to store used sharps from estradiol injections No current facility-administered medications for this visit. ALLERGIES: ALLERGIES No Known Allergies VITALS: BP 110/68 Pulse 68 Temp 36.1 C (96.9 F) Resp 16 Wt 70.5 kg (155 lb 6.8 oz) SpO2 97% BMI 25.09 kg/m PHYSICAL EXAM: GEN: NAD HEENT: EOMI, conjunctiva clear, HEART: regular rate and rhythm, no murmurs LUNGS: clear to auscultation, no wheezes or crackles, no increased WOB ABDOMEN: Soft, nondistended, no masses, lower abdominal tenderness BACK: No CVA tenderness FOOT: right. Puncture plantar surface near the 4th metatarsal head. Normal ROM or toes. ASSESSMENT/PLAN: 1. Puncture wound of right foot, initial encounter - ICD9: 892.0, ICD10: S91.331A (primary diagnosis) - CEPHALEXIN 500 MG CAPSULE prophylaxis. 2. Urinary frequency - ICD9: 788.41, ICD10: R35.0 - UA DIP, URINE (POC) positive for nitrate but negative for blood, protein, or leukocyte esterase. - URINE CULTURE Start- CEPHALEXIN 500 MG CAPSULE and may discontinue if culture has inadequate growth. Follow up with PCP or urology if symptoms persist. Rafael Molina MD documented in this encounter [facility] 03-15-2024 Telephone encounter Note Pt called for quote; pt was given [employer] numbers. Do no see a letter or an FYI in pts chart regarding information. [facility] 03-15-2024 Miscellaneous Notes Pt called for quote; pt was given [employer] numbers. Do no see a letter or an FYI in pts chart regarding information. documented in this encounter [facility] 03-12-2024 History of Presen t illness Narrative Images from the original note were not included. BMI Obesity Medicine FollowUp Note [facility] Visit March 12, 2024 I have communicated my name and active licensure. The patient's identity and physical location were verified at the time of this visit. Either the patient or their legal claims representative has been informed of the risks and benefits of -- and alternatives to -- treatment through a remote evaluation and consents to proceed with the evaluation remotely. Patient Summary: Segundo Quezada is 43 year old Transgender Female who presents virtually for follow-up evaluation of her obesity and related complications to the [facility] Bariatric and Metabolic [place]. In our previous visits we have outlined an individualized lifestyle intervention including a personalized nutrition recommendations and physical activity optimization. [facility] 08/19/2023: Impression: Segundo Quezada is a 43 year old adult with Class I obesity (Body mass index is 34.7 kg/m .) who has adult onset obesity with several periods of weight loss followed by weight gain . The causes of her obesity are multifactorial, biological, psychological and social and environmental. Specific factors include exposure to weight gain promoting medication(s) , increased consumption of high calorie/process foods, and stress/depression. She has no significant weight-related medical comorbidities which increase her cardiovascular mortality risk. There are no additional metabolic obesity complications. Other medical conditions as above. Regarding her lifestyle, as above, she has several behavioral contributors; her physical activity is regular. Overall, it is clear that her quality of life is moderately compromised by her weight. It is likely a combination of weight loss therapies will be needed. She appears motivated today. Plan: -- Based on the severity and resistance of the obesity to more conservative weight loss approaches, I believe a combination of behavioral and pharmacological intervention is the best and most appropriate long term care pharmacist therapeutic option. -- We discussed several strategies to track food intake and increase mindfulness around eating. See eating plan below. -- Encouraged the patient to improve her physical activity. Although cardiovascular exercise is most beneficial for weight loss initially, we discussed healthy muscle from a combination of resistance training and cardiovascular exercise is the best long term care pharmacist plan. An overall goal of 200 minutes per week of exercise has been effective in weight loss and maintenance. -- Discussed AOM's at length. She would like to try Dulaglutide. Discussed common s/e and provided drug information via [employer] message. Discussed medical reimbursement specialist and recommended watching the video provided. Start dulaglutide 0.75 mg weekly inj x 4 weeks then increase to 1.5 mg weekly. -- follow-up visit for management of above interventions in 3 months. Mutually Agreed Upon Goals Eating Plan: - MyFitness Pal or Lose It ELAN - Log intake 2 days per week. - Try to have a protein packed breakfast. - Try to eat 100 grams of protein per day. - Try to eat 2 fruits and 2 vegetables. - [employer] Plate. - Mediterranean Diet. Activity: Goal is 150 to 200 minutes per week. Stress: ELAN for meditation - Mindful Moments by [facility]. [email or web address] I spent a total of 55 minutes on the date of the service which included preparing to see the patient, [id number] patient care, completing clinical documentation, obtaining and/or reviewing separately obtained history, performing a medically appropriate examination, counseling and educating the patient/family/caregiver, and ordering medications, tests, or procedures. Alonso Siu APRN.[employer] AMBASSADOR Initial Program Weight 215 lbs Today's weight: 167 lbs Weight Graph Interval History: She specifies the following items as new or significant updates since the last appointment: Returns after 7 months Reports weight is decreased since the last visit. Obesity Medications: Dulaglutide (Trulicity). Start Date: 08/19/2023 Weight: 215 lbs Effects Reduction of appetite and Reduction of cravings - She is having a hard time getting the medication d/t shortage. S/E: feeling run down in the morning Anti-Obesity Medications >Phentermine: No uncontrolled HTN, No CVD Hx or hx of seizure disorder. No MAOI inhibitor use. No drug abuse hx. Crcl > 15. >Topiramate/zonisamide: No seizure or kidney stone hx. - hx of migraines, + hx of poor sleep. - Child bearing age. >Qsymia: see above >Contrave: No contraindications. Could affect mood. No uncontrolled HTN or hx of seizure disorder (lowers threshold for seizures). No MAOI inhibitor use. No opiate use. >Saxenda/Wegovy/Ozempic: Cost. Ins coverage? Dulagltuide. Pt reports no personal or family hx of medullary thyroid carcinoma or personal hx of pancreatitis? >Metformin: No contraindications or medication interactions. eGFR > 30. Diet: - Picking healthier food options - Reducing portions. Exercise: Change in physical activity: Yes - Increased walking ?Sleep: Change in sleep: Sleeping well, taking trazodone. ??Stress: - Manageable. Review of Systems: The physical systems reviewed reveal no pathological symptoms that are pertinent to this visit, Diabetes No, HTN: No, Cardiac: No, and Pulmonary: No History reviewed in Epic Allergies: No Known Allergies Current Outpatient Medications Medication Sig amoxicillin-clavulanate potassium (AUGMENTIN) 875-125 mg per tablet Take 1 tablet by mouth two times a day for 7 days. dulaglutide (TRULICITY) 3 mg/0.5 mL pen injector Inject 3 mg subcutaneously one time a week. traZODone (DESYREL) 50 mg tablet Take 1 tablet by mouth at bedtime as needed. finasteride (PROPECIA) 1 mg tablet take 1 tablet by mouth once daily estradiol (ESTRACE) 2 mg tablet Take 1 tablet by mouth three times a day. Syringe with Needle, Disp, 1 mL 25 gauge x 1 syrg 1 Each one time a week. Needle, Disp, 18 G 18 gauge x 1 1/2 1 Each one time a week. alcohol swabs Apply 1 Each to affected area one time a week. Oral Medication Containers (SHARPS CONTAINER) misc Use as needed weekly to store used sharps from estradiol injections spironolactone (ALDACTONE) 50 mg tablet Take 1 tablet by mouth every 12 hours. fluvoxaMINE (LUVOX) 100 mg tablet take 1 tablet by mouth every morning busPIRone (BUSPAR) 10 mg tablet take 1 tablet by mouth three times a day levothyroxine (SYNTHROID) 25 mcg tablet take 1 tablet by mouth once daily famotidine (PEPCID) 20 mg tablet take 1 tablet by mouth twice a day if needed MULTIVITAMIN/IRON/FOLIC ACID (DAILY MULTI ORAL) Take 1 tablet by mouth once daily. No current facility-administered medications for this visit. PAST MEDICAL HISTORY Diagnosis Date Chronic depressive personality disorder Former smoker 07/17/2021 Gender dysphoria 07/17/2021 Generalized anxiety disorder Hypothyroidism Obesity 07/17/2021 Tobacco use disorder PAST SURGICAL HISTORY Procedure Laterality Date OSTEOTOMY - BODY OF MANDIBLE 07/2021 with cheek augmentation Social Connections: Moderately Isolated (12/23/2023) Social Connection and Isolation Panel [NHANES] Frequency of Communication with Friends and Family: More than three times a week Frequency of Social Gatherings with Friends and Family: More than three times a week Attends [employer] Services: Never Active Member of Clubs or Organizations: No Attends Club or Organization Meetings: Never Marital Status: Family History Problem Relation Age of Onset other (hepatitis) Mother other (ulcers) Father No Known Problems Maternal Grandmother Alzheimer's Disease Maternal Grandfather No Known Problems Paternal Grandmother No Known Problems Paternal Grandfather Allergies Daughter Anesthesia Problems No Family History Physical Exam: Weight: 75.8 kg (167 lb) Patient reported weight. VIDEO EXAM: (if done, performed via video enabled technology) General appearance: NAD Mental status: awake and alert Pulm: not visibly SOB Neuro: speech fluent Impression: Segundo Quezada is a 43 year old year old adult with a hx of Class I obesity and the above obesity related complications. Body mass index is 26.95 kg/m . Currently taking Dulaglutide (Trulicity)., responding well however stopped a week ago because she cannot obtain the medication d/t the shortage. She would like to try a pill form of AOM. Will try phentermine to prevent weight regain. Discussed common s/e and provided drug information via [employer] message. Lifestyle improved Currently Motivated. Plan: -- continue improving diet and exercise. -- New Phentermine 37.5 mg 1/2 tab in AM. After 1 week, if needed, can increase to full tab. -- return to clinic/virtually in 3 months I spent a total of 15 minutes on the date of the service which included preparing to see the patient, [id number] patient care, completing clinical documentation, obtaining and/or reviewing separately obtained history, performing a medically appropriate examination, counseling and educating the patient/family/caregiver, and ordering medications, tests, or procedures. Alonso Siu APRN.CNP documented in this encounter [facility] 03-12-2024 Telephone encounter Note encounter was not routed to the pool. Pt has an appt today to discuss AOM. [facility] Work Phone: 03-12-2024 Miscellaneous Notes encounter was not routed to the pool. Pt has an appt today to discuss AOM. Summary: medication Good morning, Please contact patient about medication. She left a voicemail on 03/10/24. Thank you. documented in this encounter [facility] 03-11-2024 Telephone encounter Note Summary: medication Good morning, Please contact patient about medication. She left a voicemail on 03/10/24. Thank you. [facility] 03-05-2024 Instructions Jammie Da Silva APRN.SLOT AMBASSADOR - 03/05/2024 5:50 PM EDT Images from the original note were not included. ASSESSMENT/PLAN: 1. Sore throat - ICD9: 462, ICD10: J02.9 (primary diagnosis) - suspect due to post nasal drainage - Group A strep molecular testing negative - Discussed supportive care treatment with fluids, rest and analgesia. - STREP A MOLECULAR (POC) 2. Bacterial sinusitis - ICD9: 473.9, 041.9, ICD10: J32.9, B96.89 - Will begin treatment with as per antibiotic as written, see orders - AMOXICILLIN 875 MG-POTASSIUM CLAVULANATE 125 MG TABLET 3. Skin mass - ICD9: 782.2, ICD10: R22.9 - if not resolving on antibiotic, follow up with dermatology. - Follow-up with your PCP in 3-5 days if symptoms have not improved or sooner if symptoms worsen - Discussed red flags and need for immediate medical evaluation if any occur. - Discussed supportive care treatment with fluids, rest and analgesia. - Discussed expected course of illness Jammie Da Silva APRN.SLOT AMBASSADOR Adult Sinusitis Patient Education What is Sinusitis? Sinusitis [luui-avp-yxcy-tis] is inflammation of the sinuses or swelling of the lining of the sinus cavity or nose. During an infection the sinuses become blocked with fluid causing swelling of the lining of the sinuses. Symptoms: (viral and bacterial infections) Stuffy nose Runny nose Postnasal drip Fever Toothache Headache Tiredness Cough Sore throat Face and head pressure and or pain Common causes: 98% of sinus infections are viral caused by viruses. Risk Factors of Sinusitis Include: Allergies, air pollution, indoor humidity and outdoor temperature changes, andstructural changes in the nose may contribute to sinus pain, pressure and congestion. When to get help? Temperature greater than 100.4 F Symptoms lasting more than 10 days or worsening symptoms greater than 7-10 days. If you do not improve or worsen after a course of antibiotics, you should be re-examined. Diagnosis and Treatment: Your healthcare provider will ask a number of questions about your symptoms and how long they have occurred. If symptoms of sinusitis persist greater than 10 days, it is possible you have a bacterial sinus infection and an antibiotic is prescribed. If it is viral, antibiotics will not help. You may be instructed to take [id number]-[id number] medications for symptoms. including fever reducers acetaminophen or ibuprofen, nasal saline spray, cough and cold preparations and decongestants as prescribed by the physician, nurse practitioner or physician restaurant assistant manager. Self-Care and Prevention: Rest Fluids for hydration Good hand washing Humidifier Avoid smoking and exposure to second hand smoke Avoid sick contacts documented in this encounter [facility] 03-05-2024 History of Presen t illness Narrative Images from the original note were not included. Subjective Sore Throat Associated symptoms include congestion and coughing. Pertinent negatives include no ear pain. Segundo Quezada is a 43 year old adult who presents with sore throat, cough, for the past week. Throat feels sore and swollen, has had some right sided sinus pain and pressure. Has taken robitussin and ibuprofen. Denies pain or fever. Also concerned about an area on right side of neck. Noticed this a week ago. It is red, sore and swollen. Shabbir squeezed it but nothing comes out of it. Review of Systems Constitutional: Negative for chills and fever. HENT: Positive for congestion, sinus pain and sore throat. Negative for ear pain. Respiratory: Positive for cough. Cardiovascular: Negative. Musculoskeletal: Negative for myalgias. Skin: See HPI BP 120/64 Pulse 86 Temp 36.2 C (97.1 F) Resp 16 Wt 75 kg (165 lb 5.5 oz) SpO2 96% BMI 26.69 kg/m PAST MEDICAL HISTORY Diagnosis Date Chronic depressive personality disorder Former smoker 07/17/2021 Gender dysphoria 07/17/2021 Generalized anxiety disorder Hypothyroidism Obesity 07/17/2021 Tobacco use disorder PAST SURGICAL HISTORY Procedure Laterality Date OSTEOTOMY - BODY OF MANDIBLE 07/2021 with cheek augmentation ALLERGIES Patient has no known allergies. MEDICATIONS dulaglutide (TRULICITY) 3 mg/0.5 mL pen injector Inject 3 mg subcutaneously one time a week. traZODone (DESYREL) 50 mg tablet Take 1 tablet by mouth at bedtime as needed. finasteride (PROPECIA) 1 mg tablet take 1 tablet by mouth once daily estradiol (ESTRACE) 2 mg tablet Take 1 tablet by mouth three times a day. spironolactone (ALDACTONE) 50 mg tablet Take 1 tablet by mouth every 12 hours. fluvoxaMINE (LUVOX) 100 mg tablet take 1 tablet by mouth every morning busPIRone (BUSPAR) 10 mg tablet take 1 tablet by mouth three times a day levothyroxine (SYNTHROID) 25 mcg tablet take 1 tablet by mouth once daily famotidine (PEPCID) 20 mg tablet take 1 tablet by mouth twice a day if needed MULTIVITAMIN/IRON/FOLIC ACID (DAILY MULTI ORAL) Take 1 tablet by mouth once daily. amoxicillin-clavulanate potassium (AUGMENTIN) 875-125 mg per tablet Take 1 tablet by mouth two times a day for 7 days. Syringe with Needle, Disp, 1 mL 25 gauge x 1 syrg 1 Each one time a week. Needle, Disp, 18 G 18 gauge x 1 1/2 1 Each one time a week. alcohol swabs Apply 1 Each to affected area one time a week. Oral Medication Containers (SHARPS CONTAINER) misc Use as needed weekly to store used sharps from estradiol injections FAMILY HISTORY Problem Relation Age of Onset other (hepatitis) Mother other (ulcers) Father No Known Problems Maternal Grandmother Alzheimer's Disease Maternal Grandfather No Known Problems Paternal Grandmother No Known Problems Paternal Grandfather Allergies Daughter Anesthesia Problems No Family History Social History Tobacco Use Smoking status: Former Packs/day: 0.50 Years: 10.00 Additional pack years: 0.00 Total pack years: 5.00 Types: Cigarettes Quit date: 10/20/2016 Years since quittin.3 Smokeless tobacco: Never Vaping Use Vaping Use: Never used Substance Use Topics Alcohol use: No Drug use: No Objective Physical Exam Vitals and nursing note reviewed. Constitutional: General: She is not in acute distress. Appearance: Normal appearance. She is not ill-appearing. HENT: Right Ear: Tympanic membrane, ear canal and external ear normal. Left Ear: Tympanic membrane, ear canal and external ear normal. Nose: Nasal tenderness, mucosal edema and congestion present. Mouth/Throat: Mouth: Mucous membranes are moist. Pharynx: Uvula midline. Posterior oropharyngeal erythema present. No oropharyngeal exudate. Neck: Cardiovascular: Rate and Rhythm: Normal rate and regular rhythm. Heart sounds: Normal heart sounds. Pulmonary: Effort: Pulmonary effort is normal. No respiratory distress. Breath sounds: Normal breath sounds. No wheezing or rales. Musculoskeletal: Cervical back: Neck supple. Lymphadenopathy: Cervical: No cervical adenopathy. Skin: General: Skin is warm and dry. Findings: No erythema or rash. Neurological: Mental Status: She is alert. ASSESSMENT/PLAN: 1. Sore throat - ICD9: 462, ICD10: J02.9 (primary diagnosis) - suspect due to post nasal drainage - Group A strep molecular testing negative - Discussed supportive care treatment with fluids, rest and analgesia. - STREP A MOLECULAR (POC) 2. Bacterial sinusitis - ICD9: 473.9, 041.9, ICD10: J32.9, B96.89 - Will begin treatment with as per antibiotic as written, see orders - AMOXICILLIN 875 MG-POTASSIUM CLAVULANATE 125 MG TABLET 3. Skin mass - ICD9: 782.2, ICD10: R22.9 - if not resolving on antibiotic, follow up with dermatology. - Follow-up with your PCP in 3-5 days if symptoms have not improved or sooner if symptoms worsen - Discussed red flags and need for immediate medical evaluation if any occur. - Discussed supportive care treatment with fluids, rest and analgesia. - Discussed expected course of illness Jammie Da Silva APRN.SLOT AMBASSADOR documented in this encounter [facility] 02-23-2024 Telephone encounter Note Pharmacy electronically requests the following refill(s) Last visit 01/21/24 No future appt Requested Prescriptions Pending Prescriptions Disp Refills traZODone (DESYREL) 50 mg tablet [Pharmacy Med Name: TRAZODONE 50 MG TABLET] 30 tablet 5 Sig: Take 1 tablet by mouth at bedtime as needed. Donna Martinez LPN [facility] 02-23-2024 Miscellaneous Notes Pharmacy electronically requests the following refill(s) Last visit 01/21/24 No future appt Requested Prescriptions Pending Prescriptions Disp Refills traZODone (DESYREL) 50 mg tablet [Pharmacy Med Name: TRAZODONE 50 MG TABLET] 30 tablet 5 Sig: Take 1 tablet by mouth at bedtime as needed. Donna Martinez LPN documented in this encounter [facility] 02-16-2024 Telephone encounter Note LV 01/21/24 Next appt 02/23/24 Pharmacy electronically requests the following refill(s) Requested Prescriptions Pending Prescriptions Disp Refills finasteride (PROPECIA) 1 mg tablet [Pharmacy Med Name: FINASTERIDE 1 MG TABLET] 90 tablet 3 Sig: take 1 tablet by mouth once daily Dale Padgett LPN [facility] 02-16-2024 Miscellaneous Notes LV 01/21/24 Next appt 02/23/24 Pharmacy electronically requests the following refill(s) Requested Prescriptions Pending Prescriptions Disp Refills finasteride (PROPECIA) 1 mg tablet [Pharmacy Med Name: FINASTERIDE 1 MG TABLET] 90 tablet 3 Sig: take 1 tablet by mouth once daily Dale Padgett LPN documented in this encounter [facility] 02-11-2024 Instructions Christianne Ren PA-C - 02/11/2024 3:16 PM EDT HAIR LASER INSTRUCTION SHEET The treated area is delicate and should be treated gently. It is common to experience some redness for 1-2 days. Please read and follow these instructions. Avoid unprotected sun exposure to the sun during your laser treatment sessions. An SPF 30 or higher should be used. You will not be treated if you have a mendoza. One day prior to appointment please shave all areas to be treated. The hair can be removed using Martines if shaving is not feasible. Avoid any trauma such as scratching, picking, or rubbing the treated area. Avoid retinol/tretinoin/glycolic acid products for 24 hours prior to treatment Do not pluck or wax the area to be treated for a minimum of 6 weeks prior to your treatment Post laser Instructions: Wash the treated area with a mild soap (Dove, Cetaphil) daily. Apply soothing cream twice a day for 2 days if redness persists If crusts, scabs, or blisters develop, which is very unlikely, call the office and keep moist by applying Vaseline or Aquaphor healing ointment. Allow them to fall off on their own Any discomfort or burning at the treatment site may be relieved by taking Tylenol, applying a calming cream, or applying ice to the area Do not pluck, wax, or tweeze the hairs. Shaving or trimming the hairs between treatments is fine. Laser appointments should be scheduled a minimum of 6-8 weeks apart Monitor redness, length of time it takes for hair to regrow, amount of growth, and texture of hair. This information will help us determine your next laser treatment settings. If you have any questions or concerns regarding your laser treatment or post-operative care please call the office documented in this encounter [facility] 02-11-2024 History of Presen t illness Narrative Chief Complaint: Gender Dysphoria History of Present Ilness: Segundo Quezada is a 43 year old adult Patient is here for: 1) consult regarding laser hair removal of scrotal area for gender dysphoria prior to bottom surgery. Current treatment: shaving Pertinent Past Medical History: History of skin cancer or atypical nevi: no Specialty Problems None Pertinent Family medical history: History of melanoma: No Review of Systems: Constitutional: Denies fever, chills, night sweats, unintentional weight loss. Skin per HPI. No other new/concerning skin growth. Physical Exam: General: well appearing, of stated age, in no acute distress Neurology: alert and oriented times three Psychiatry: in a happy mood Skin: Mcneal skin type: II Skin exam performed of face Skin exam normal with the exception of: -dark terminal hairs of arms Assessment and Plan: 1. Recommend hair removal for gender dysphoria -Discussed treatment with 755 nm laser -Pre/post written instructions given to patient -Advised not to be tanned during treatments and careful sun exposure post -Laser reviewed at length including treatment expectations, need for multiple treatments (~6-8) and risks including pain, swelling, redness, blistering, hyper/hypopigmentation, texture change, scarring. -Will submit for insurance coverage today Request for insurance coverage: ICD 10 Primary Diagnosis: Gender Dysphoria F64.9 CPT code: Laser: Laser Hair Removal 06286 Appointment time needed: 30 mins Christianne Ren PA-C February 11, 2024 documented in this encounter [facility] 02-03-2024 History of Presen t illness Narrative Subjective HPI HPI Segundo Quezada is a 43 year old adult who presents today for CC of burning with urination, bladder pressure. This started 1 day ago. Has tried nothing for relief. Symptoms are worsened by nothing. Risk factors hx of uti, states these are common symptoms for her when she gets uti's. Denies concerns for std. .Patient presents with: UTI: Burning with urination, lower back and lower abd pressure x1 day PAST MEDICAL HISTORY Diagnosis Date Chronic depressive personality disorder Former smoker 07/17/2021 Gender dysphoria 07/17/2021 Generalized anxiety disorder Hypothyroidism Obesity 07/17/2021 Tobacco use disorder PAST SURGICAL HISTORY Procedure Laterality Date OSTEOTOMY - BODY OF MANDIBLE 07/2021 with cheek augmentation ALLERGIES Patient has no known allergies. MEDICATIONS nitrofurantoin monohydrate and macrocrystal (MACROBID) 100 mg capsule Take 1 capsule by mouth two times a day for 7 days. estradiol (ESTRACE) 2 mg tablet Take 1 tablet by mouth three times a day. Syringe with Needle, Disp, 1 mL 25 gauge x 1 syrg 1 Each one time a week. Needle, Disp, 18 G 18 gauge x 1 1/2 1 Each one time a week. alcohol swabs Apply 1 Each to affected area one time a week. Oral Medication Containers (SHARPS CON[place]ER[place] [facility] [place] Use as needed weekly to store used sharps from estradiol injections dulaglutide (TRULICITY) 3 mg/0.5 mL pen injector Inject 3 mg subcutaneously one time a week. traZODone (DESYREL) 50 mg tablet take 1 tablet by mouth at bedtime if needed spironolactone (ALDACTONE) 50 mg tablet Take 1 tablet by mouth every 12 hours. fluvoxaMINE (LUVOX) 100 mg tablet take 1 tablet by mouth every morning busPIRone (BUSPAR) 10 mg tablet take 1 tablet by mouth three times a day levothyroxine (SYNTHROID) 25 mcg tablet take 1 tablet by mouth once daily finasteride (PROPECIA) 1 mg tablet Take 1 tablet by mouth once daily. famotidine (PEPCID) 20 mg tablet take 1 tablet by mouth twice a day if needed MULTIVITAMIN/IRON/FOLIC ACID (DAILY MULTI ORAL) Take 1 tablet by mouth once daily. FAMILY HISTORY Problem Relation Age of Onset other (hepatitis) Mother other (ulcers) Father No Known Problems Maternal Grandmother Alzheimer's Disease Maternal Grandfather No Known Problems Paternal Grandmother No Known Problems Paternal Grandfather Allergies Daughter Anesthesia Problems No Family History Social History Tobacco Use Smoking status: Former Packs/day: 0.50 Years: 10.00 Additional pack years: 0.00 Total pack years: 5.00 Types: Cigarettes Quit date: 10/20/2016 Years since quittin.2 Smokeless tobacco: Never Vaping Use Vaping Use: Never used Substance Use Topics Alcohol use: No Drug use: No Review of Systems Constitutional: Negative for chills, fever and weight loss. Respiratory: Negative for cough, shortness of breath and wheezing. Cardiovascular: Negative for chest pain and palpitations. Gastrointestinal: Negative for abdominal pain, blood in stool, constipation, diarrhea, heartburn, melena, nausea and vomiting. Genitourinary: Positive for dysuria and frequency. Negative for flank pain, hematuria and urgency. Musculoskeletal: Negative for myalgias. Objective Blood pressure 132/84, pulse 84, temperature 36.9 C (98.4 F), resp. rate 18, weight 78.6 kg (173 lb 4.5 oz), SpO2 99%. Physical Exam Constitutional: General: She is not in acute distress. Appearance: Normal appearance. She is not toxic-appearing. Cardiovascular: Rate and Rhythm: Normal rate and regular rhythm. Heart sounds: Normal heart sounds. Pulmonary: Effort: Pulmonary effort is normal. Breath sounds: Normal breath sounds. Abdominal: General: Bowel sounds are normal. Palpations: Abdomen is soft. Tenderness: There is abdominal tenderness in the suprapubic area. There is no right CVA tenderness or left CVA tenderness. Skin: General: Skin is warm and dry. ASSESSMENT/PLAN: 1. Burning with urination - ICD9: 788.1, ICD10: R30.0 acute - UA positive for hematuria - Send urine for culture - Begin treatment with Macrobid 100 mg BID for 7 days - Patient education for prevention given - UA DIP, URINE (POC) - URINE CULTURE - NITROFURANTOIN MONOHYDRATE & MACROCRYSTAL 100 MG ORAL CAP Gil Castro APRN.SLOT AMBASSADOR documented in this encounter [facility] 01-26-2024 History of Presen t illness Narrative DATE OF PHOTOS: 01/26/2024 Body Part: Full Face [facility] January 26, 2024 4:25 PM documented in this encounter [facility] 01-26-2024 History of Presen t illness Narrative Images from the original note were not included. Plastic Surgery Note CC: consult for face lift HPI: Segundo is a 43 year old adult who presents today for a facelift consult following weight loss (prescribed Truliticty), s/p facial feminization surgeries July 2021 and [address] Brooks. Concerned about disruptive appearence of excess skin around neck, chin, and jaw. Interested in more neck definition. Current weight: 174 lb Current BMI: 28.08 Weight loss: 40 lb Duration of weight loss: July 2023 - present Goal weight: 165 lb Hemoglobin A1C (%) Date Value 04/12/2022 5.4 07/20/2021 5.3 07/23/2019 5.3 HBA1C, Bushra (%) Date Value 09/13/2008 5.9 Last 10 Encounter BP Readings: Date: BP: 07/16/2023 120/80 06/17/2023 126/66 04/30/2023 118/80 12/06/2022 100/68 11/05/2022 121/77 07/09/2022 105/41 05/27/2022 114/61 05/21/2022 117/58 05/13/2022 115/71 05/10/2022 138/84 Latest Ref Rng & Units 04/12/2022 11/20/2022 07/15/2023 CBC WBC 3.70 - 11.00 k/uL 9.21 8.90 9.07 RBC 4.20 - 6.00 m/uL 4.42 4.02 3.97 Hemoglobin 13.0 - 17.0 g/dL 13.4 13.3 13.3 Hematocrit 39.0 - 51.0 % 39.1 37.1 36.7 MCV 80.0 - 100.0 fL 88.5 92.3 92.4 MCH 26.0 - 34.0 pg 30.3 33.1 33.5 MCHC 30.5 - 36.0 g/dL 34.3 35.8 36.2 RDW-CV 11.5 - 15.0 % 11.9 12.7 11.9 Platelet Count 150 - 400 k/uL 194 230 207 MPV 9.0 - 12.7 fL 9.7 11.1 11.0 Baso% % 0.3 0.4 0.6 Abs Neut (ANC) 1.45 - 7.50 k/uL 6.48 5.65 5.42 Abs Lymph 1.00 - 4.00 k/uL 2.19 2.57 2.89 Abs Valley <0.87 k/uL 0.45 0.48 0.59 Abs Eosin <0.46 k/uL 0.04 0.14 0.10 Abs Baso <0.11 k/uL 0.03 0.04 0.05 NRBC /100 WBC 0.0 0.0 0.0 Latest Ref Rng & Units 07/20/2021 04/12/2022 11/20/2022 CMP Sodium 136 - 144 mmol/L 138 138 138 Potassium 3.7 - 5.1 mmol/L 4.1 3.9 4.0 Chloride 97 - 105 mmol/L 100 103 103 CO2 22 - 30 mmol/L 25 21 24 Glucose 74 - 99 mg/dL 88 98 88 BUN 9 - 24 mg/dL 16 20 14 Creatinine 0.73 - 1.22 mg/dL 0.64 0.60 0.65 EGFR >=60 mL/min/1.73m 124 121 EGFR-All Other Races . >60 EGFR- >60 Protein, Total 6.3 - 8.0 g/dL 7.9 7.5 Albumin 3.9 - 4.9 g/dL 4.9 4.8 Calcium 8.5 - 10.2 mg/dL 10.1 9.1 9.1 Bilirubin, Total 0.2 - 1.3 mg/dL 0.3 0.3 AST 14 - 40 U/L 22 16 ALT 10 - 54 U/L 25 16 Alkaline Phosphatase 38 - 113 U/L 57 59 YES NO Smoking, vaping, nicotine, cannabis [] [x] Cigarettes/ day.. Former, 0.5 ppd, 5 pack-years, quit 10/20/2016.. ? Hormone replacement (contraceptive, post menopause hormone treatment) [x] [] Medication..estradiol, spironalctone, finasteride. Diabetes [] [x] []Type 1? []Type 2 ?Last A1c:..... Systemic inflammatory diseases [] [x] []RA []Gout []Other... Hypertension [] [x] Meds:....... Heart disease or pacemaker [] [x] ............ Family history blood clots [] [x] Personal history blood clots [] [x] Anticoagulation (aspirin, coumadin, xarelto,etc) [] [x] What........... Reason:........... Immunosuppressants (steroid, biologic meds infusion, etc) [] [x] What........... Reason:........... Pt AGAINST blood transfusion? [] [x] Objective: BP 128/76 Pulse 79 Temp 36.9 C (98.5 F) Ht 167.6 cm (5' 6) Wt 78.9 kg (174 lb) BMI 28.08 kg/m PAST MEDICAL HISTORY Diagnosis Date Chronic depressive personality disorder Former smoker 07/17/2021 Gender dysphoria 07/17/2021 Generalized anxiety disorder Hypothyroidism Obesity 07/17/2021 Tobacco use disorder PAST SURGICAL HISTORY Procedure Laterality Date OSTEOTOMY - BODY OF MANDIBLE 07/2021 with cheek augmentation Current Outpatient Medications Medication Sig Dispense Refill estradiol (ESTRACE) 2 mg tablet Take 1 tablet by mouth three times a day. 270 tablet 1 Syringe with Needle, Disp, 1 mL 25 gauge x 1 syrg 1 Each one time a week. 100 Each 0 Needle, Disp, 18 G 18 gauge x 1 1/2 1 Each one time a week. 100 Each 0 alcohol swabs Apply 1 Each to affected area one time a week. 100 Each 0 Oral Medication Containers (SHARPS CONTAINER) misc Use as needed weekly to store used sharps from estradiol injections 1 Each 11 dulaglutide (TRULICITY) 3 mg/0.5 mL pen injector Inject 3 mg subcutaneously one time a week. 2 mL 2 traZODone (DESYREL) 50 mg tablet take 1 tablet by mouth at bedtime if needed 30 tablet 2 spironolactone (ALDACTONE) 50 mg tablet Take 1 tablet by mouth every 12 hours. 180 tablet 1 fluvoxaMINE (LUVOX) 100 mg tablet take 1 tablet by mouth every morning 90 tablet 3 busPIRone (BUSPAR) 10 mg tablet take 1 tablet by mouth three times a day 90 tablet 2 levothyroxine (SYNTHROID) 25 mcg tablet take 1 tablet by mouth once daily 180 tablet 3 finasteride (PROPECIA) 1 mg tablet Take 1 tablet by mouth once daily. 90 tablet 3 famotidine (PEPCID) 20 mg tablet take 1 tablet by mouth twice a day if needed 60 tablet 1 MULTIVITAMIN/IRON/FOLIC ACID (DAILY MULTI ORAL) Take 1 tablet by mouth once daily. No current facility-administered medications for this visit. ALLERGIES No Known Allergies ROS: All negative except for: GENERAL: []weight loss []malaise []fevers HEENT: []frequent or significant headaches []changes in hearing []change in vision []nose bleeds []other nasal problems NECK: []lumps []goiter []pain and significant neck swelling RESPIRATORY: []cough []hemoptysis []wheezing []COPD []dyspnea []shortness of breath CARDIOVASCULAR: []chest pain []leg swelling []hypertension []CHF []palpitations GI: []nausea []vomiting []diarrhea MUSCULOSKELETAL: see HPI SKIN: [] skin lesions []rash []itching PSYCH: []sleep disturbance []mood disorder []recent psychosocial stressors HEMATOLOGY/LYMPHOLOGY: []prolonged bleeding []bruising easily []swollen nodes ENDOCRINE: []cold intolerance []heat intolerance []polyuria []polydipsia []goiter PE: Alert, awake in NAD Skin with good tone and retraction Chin ptosis Jowling No platysmal banding A/P: Gender dysphoria in adult, excess facial skin - Submit to insurance - Discussed patient will have better outcome if she waits approximately 5 more years when there will be greater benefit/outcomes - photos today Follow up after insurance approval/denial. The patient is seen and examined by Dr. Brooks and the following reflects his/her service. Scribed by Elda Cormier RN I agree with the Chief Complaint, ROS, and Past Histories independently gathered by the clinical technical support internship/resident and the remaining scribed note accurately describes my personal service to the patient. 25 minutes of the total visit were spent face to face with patient. Greater than 50% of the time was spent for counseling and coordination of care, discussing treatment options and recommendations. Navneet Dunham MD January 26, 2024 5:11 PM This note was generated with voice recognition software and may contain errors, including spelling, grammar, syntax and misrecognition of what was dictated, that are not fully corrected. documented in this encounter [facility] 01-21-2024 History of Presen t illness Narrative DISTANCE HEALTH VISIT This Team Access Model visit is a virtual encounter. It required patient-provider interaction for the medical decision making as documented below. I have communicated my name and active licensure. The patient's identity and physical location were verified at the time of this visit. Either the patient or their legal claims representative has been informed of the risks and benefits of -- and alternatives to -- treatment through a remote evaluation and consents to proceed with the evaluation remotely. Segundo Quezada is a 43 year old adult seen for [facility] management. HISTORY REVIEWED (electronic chart updated): - medical history - medications - allergies The pt sent the following MCM on 01/20/2024 with concerns for mood changes after starting estradiol injections: Hey there, I hope you are well. I started the estrogen shot a little over a month ago. Since starting the shot I ve noticed a considerable decrease in my general mood, less intense emotion, less variety of mood and emotion, general numbness of mood, feeling less feminine and some hair shedding. Not sure if this is a dose issue or what s happing but it does cause major concern. I wanted to reach out to see what steps we could take to remedy. Thanks so much for your help and consideration. [facility] Regimen: estradiol valerate 5 mg IM weekly. Injections: No missed doses. REVIEW OF SYSTEMS: All other ROS: negative As noted in HPI PHYSICAL EXAMINATION: VIDEO EXAM: (if done, performed via video enabled technology) GENERAL: alert and appropriate, in no distress and well-hydrated, well nourished SKIN: no rash noted HEAD: normocephalic, no abnormality or lesion noted EYES: no injection and visual acuity is grossly normal EARS: hearing grossly normal NOSE: external nose normal without rhinorrhea OROPHARYNX: moist mucus membranes NECK: Supple RESPIRATORY: breathing non-labored CHEST: equal chest rise with normal respiratory effort ASSESSMENT: Encounter Diagnosis ICD-10-CM 1. Gender incongruence F64.9 estradiol (ESTRACE) 2 mg tablet CANCELED: ESTRADIOL-17B BLD 2. Alopecia L65.9 THYROID STIMULATING HORMONE T3 T4 FREE/FREE THYROXINE CANCELED: THYROID STIMULATING HORMONE 3. Other specified hypothyroidism E03.8 THYROID STIMULATING HORMONE T3 T4 FREE/FREE THYROXINE PLAN: #gender incongruence She reports atypical Sx of hair loss, mood changes. She is due for a injection and does not wish to continue. SDM utilized to resume oral estradiol 2 mg TID. STOP injectable estradiol. #alopecia, hypothyroidism Discussed that Sx noted above could be related to thyroid function. Check TFTs. Medical Decision Making: Data: Unique test(s) ordered: 3+ Risk: Moderate: Drug management High: High risk from testing/treatment Medical Decision Making Level: 4 - Moderate Jared Schilling MD, MPH Director - [facility] [employer] - Transgender Surgery and Medicine Program [facility] Internal Medicine and Geriatrics He/Him/They/Them documented in this encounter [facility] 12-23-2023 History of Presen t illness Narrative VIRTUAL VISIT PROGRESS NOTE This is a virtual visit using En[employer] The[employer] Zoom Video Visit. It required patient-provider interaction for the medical decision making as documented below. I have communicated my name and active licensure. The patient's identity and physical location were verified at the time of this visit. Either the patient or their legal claims representative has been informed of the risks and benefits of -- and alternatives to -- treatment through a remote evaluation and consents to proceed with the evaluation remotely. Segundo Quezada is a 43 year old adult seen for [facility] follow up. Preferred name: Shabbir (She/Her) PCP: Dr. Jared Schilling Pt's last visit was on 08/26/23 via VV for anxiety. At that visit, buspar dose was increased to 10 mg TID, started hydroxyzine 25 mg as needed, and psychiatry referral was placed. Today pt reports her anxiety is well controlled w/ increased dose of buspar. No acute issue. Pt didn't follow psychiatry. Today pt inquires hormone therapy options other than PO Estrace. Currently pt is taking Estrace 2 mg TID and wants to change weekly injection. Discussed about benefits and risks of estradiol injection, and pt is willing to start. Estradiol 0.25 ml (20 mg/ml) weekly injection was ordered w/ supplies. Advised to schedule for nurse visit to learn how to inject. Meanwhile pt will continue Estrace 2 mg TID.. Labs ordered for next visit to be done. Continue to monitor for adverse effects from medication. Plan to follow-up in 3 months or sooner as needed. HISTORY REVIEWED (electronic chart updated): PAST MEDICAL HISTORY Diagnosis Date Chronic depressive personality disorder Former smoker 07/17/2021 Gender dysphoria 07/17/2021 Generalized anxiety disorder Hypothyroidism Obesity 07/17/2021 Tobacco use disorder PAST SURGICAL HISTORY Procedure Laterality Date OSTEOTOMY - BODY OF MANDIBLE 07/2021 with cheek augmentation FAMILY HISTORY Problem Relation Age of Onset other (hepatitis) Mother other (ulcers) Father No Known Problems Maternal Grandmother Alzheimer's Disease Maternal Grandfather No Known Problems Paternal Grandmother No Known Problems Paternal Grandfather Allergies Daughter Anesthesia Problems No Family History Social History Tobacco Use Smoking status: Former Packs/day: 0.50 Years: 10.00 Additional pack years: 0.00 Total pack years: 5.00 Types: Cigarettes Quit date: 10/20/2016 Years since quittin.1 Smokeless tobacco: Never Vaping Use Vaping Use: Never used Substance Use Topics Alcohol use: No Drug use: No Current Outpatient Medications Medication Sig dulaglutide (TRULICITY) 3 mg/0.5 mL pen injector Inject 3 mg subcutaneously one time a week. traZODone (DESYREL) 50 mg tablet take 1 tablet by mouth at bedtime if needed estradiol (ESTRACE) 2 mg tablet Take 1 tablet by mouth three times a day. spironolactone (ALDACTONE) 50 mg tablet Take 1 tablet by mouth every 12 hours. fluvoxaMINE (LUVOX) 100 mg tablet take 1 tablet by mouth every morning busPIRone (BUSPAR) 10 mg tablet take 1 tablet by mouth three times a day hydrOXYzine HCl (ATARAX) 25 mg tablet Take 1 tablet by mouth daily at bedtime. levothyroxine (SYNTHROID) 25 mcg tablet take 1 tablet by mouth once daily progesterone micronized (PROMETRIUM) 100 mg capsule take 1 capsule by mouth twice a day finasteride (PROPECIA) 1 mg tablet Take 1 tablet by mouth once daily. famotidine (PEPCID) 20 mg tablet take 1 tablet by mouth twice a day if needed MULTIVITAMIN/IRON/FOLIC ACID (DAILY MULTI ORAL) Take 1 tablet by mouth once daily. No current facility-administered medications for this visit. ALLERGIES No Known Allergies REVIEW OF SYSTEMS: GENERAL: activity level is normal RESPIRATORY: no cough, no wheezing or shortness of breath CARDIOVASCULAR: no chest pain, no palpitations GI: BMs normal PSYCH: denies depressed or anxious mood PHYSICAL EXAMINATION: VIDEO EXAM: (if completed, performed via video enabled technology) No exam performed ASSESSMENT: (F64.9) Gender dysphoria (primary encounter diagnosis) (F41.9, F32.A) Anxiety and depression PLAN: - Start estradiol injection 0.25 ml (5 mg) weekly: medication and supplies were ordered - Nurse visit for injection teaching - Continue Estrace 2 mg TID until injection starts - Continue spironolactone 50 mg BID - Continue buspar 10 mg TID - Perform the lab tests prior to the next visit - RTC in 3 months There are no Patient Instructions on file for this visit. I spent a total of 20 minutes on the date of the service which included [id number] patient care, counseling and educating the patient/family/caregiver, and ordering medications, tests, or procedures Kelsie Warner MD documented in this encounter [facility] 12-09-2023 Miscellaneous Notes Message sent to pt via [employer] message to see if she wants to increase to the 3 mg dose documented in this encounter [facility] 12-03-2023 Miscellaneous Notes 08/26/[address] Warner. 02/23/[address] Schilling. Patient phones requesting refills as follows: Requested Prescriptions Pending Prescriptions Disp Refills estradiol (ESTRACE) 2 mg tablet [Pharmacy Med Name: ESTRADIOL 2 MG TABLET] 270 tablet 1 Sig: Take 1 tablet by mouth three times a day. spironolactone (ALDACTONE) 50 mg tablet [Pharmacy Med Name: SPIRONOLACTONE 50 MG TABLET] 180 tablet 1 Sig: Take 1 tablet by mouth every 12 hours. Please review and advise. Belen Ceja MA documented in this encounter [facility] 12-03-2023 Miscellaneous Notes Patient requests via MyChart refills as follows: Requested Prescriptions Pending Prescriptions Disp Refills traZODone (DESYREL) 50 mg tablet [Pharmacy Med Name: TRAZODONE 50 MG TABLET] 30 tablet 2 Sig: take 1 tablet by mouth at bedtime if needed Please review and advise. Estephanie Cornell MA Last appt 08/26/23 Next appt 02/23/24 documented in this encounter [facility] 12-01-2023 Miscellaneous Notes Pharmacy electronically requests the following refill(s) Last ov 08/26/23 Future 02/23/24 Requested Prescriptions Pending Prescriptions Disp Refills fluvoxaMINE (LUVOX) 100 mg tablet [Pharmacy Med Name: FLUVOXAMINE MALEATE 100 MG TAB] 90 tablet 3 Sig: take 1 tablet by mouth every morning Donna Martinez LPN documented in this encounter [facility] 09-24-2023 Miscellaneous Notes Refilled 09/03/23. documented in this encounter [facility] 09-11-2023 Miscellaneous Notes Last appt 08/26/23 Next appt None documented in this encounter [facility] 09-10-2023 Miscellaneous Notes 08/26/[address] Warner. No future OV. Pharmacy electronically requests the following refill(s) Requested Prescriptions Pending Prescriptions Disp Refills traZODone (DESYREL) 50 mg tablet [Pharmacy Med Name: TRAZODONE 50 MG TABLET] 30 tablet 2 Sig: Take 1 tablet by mouth at bedtime as needed. Belen Ceja MA documented in this encounter [facility] 09-03-2023 Miscellaneous Notes Last appt 08/26/23 Next appt None documented in this encounter [facility] 08-26-2023 Instructions Kelsie Warner MD - 08/26/2023 3:52 PM EST Shayla Harris MD [facility] [address] [place] [id number] [phone] documented in this encounter [facility] 08-26-2023 History of Presen t illness Narrative VIRTUAL VISIT PROGRESS NOTE This is a virtual visit using [employer] Video Visit. It required patient-provider interaction for the medical decision making as documented below. I have communicated my name and active licensure. The patient's identity and physical location were verified at the time of this visit. Either the patient or their legal claims representative has been informed of the risks and benefits of -- and alternatives to -- treatment through a remote evaluation and consents to proceed with the evaluation remotely. Segundo Quezada is a 43 year old adult seen for worsening anxiety. Worsening anxiety and panic attacks. 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 Every morning waking up w/ crying and panicking. Patient started BuSpar 7.5 mg twice a day but not much helping. Patient has been on therapy. Frequent nausea since starting Trulicity. Agreed to increase BuSpar to 10 mg 3 times a day, and start hydroxyzine as needed. Advised to take hydroxyzine before bed, and try not to take during daytime. Agreed to see psychiatry for: Worsening anxiety. Given patient is considering bottom surgery in future, [facility] psychiatry information was provided. Ondansetron as needed for nausea. Advised the patient to schedule with Dr. Schilling for follow-up. HISTORY REVIEWED (electronic chart updated): PAST MEDICAL HISTORY Diagnosis Date Chronic depressive personality disorder Former smoker 07/17/2021 Gender dysphoria 07/17/2021 Generalized anxiety disorder Hypothyroidism Obesity 07/17/2021 Tobacco use disorder PAST SURGICAL HISTORY Procedure Laterality Date OSTEOTOMY - BODY OF MANDIBLE 07/2021 with cheek augmentation FAMILY HISTORY Problem Relation Age of Onset other (hepatitis) Mother other (ulcers) Father No Known Problems Maternal Grandmother Alzheimer's Disease Maternal Grandfather No Known Problems Paternal Grandmother No Known Problems Paternal Grandfather Allergies Daughter Anesthesia Problems No Family History Social History Tobacco Use Smoking status: Former Packs/day: 0.50 Years: 10.00 Additional pack years: 0.00 Total pack years: 5.00 Types: Cigarettes Quit date: 10/20/2016 Years since quittin.8 Smokeless tobacco: Never Vaping Use Vaping Use: Never used Substance Use Topics Alcohol use: No Drug use: No Current Outpatient Medications Medication Sig dulaglutide (TRULICITY) 0.75 mg/0.5 mL pen injector Inject 0.75 mg subcutaneously one time a week. for 4 weeks then increase to 1.5 mg dose. dulaglutide (TRULICITY) 1.5 mg/0.5 mL pen injector Inject 1.5 mg subcutaneously one time a week. start 1 week after last 0.75 mg dose. progesterone micronized (PROMETRIUM) 100 mg capsule take 1 capsule by mouth twice a day busPIRone (BUSPAR) 7.5 mg tablet Take 1 tablet by mouth twice daily. traZODone (DESYREL) 50 mg tablet Take 1 tablet by mouth at bedtime as needed. estradiol (ESTRACE) 2 mg tablet take 1 tablet by mouth three times a day spironolactone (ALDACTONE) 50 mg tablet take 1 tablet by mouth twice a day levothyroxine (SYNTHROID) 25 mcg tablet Take 1 tablet by mouth once daily. finasteride (PROPECIA) 1 mg tablet Take 1 tablet by mouth once daily. fluvoxaMINE (LUVOX) 100 mg tablet take 1 tablet by mouth every morning famotidine (PEPCID) 20 mg tablet take 1 tablet by mouth twice a day if needed MULTIVITAMIN/IRON/FOLIC ACID (DAILY MULTI ORAL) Take 1 tablet by mouth once daily. No current facility-administered medications for this visit. ALLERGIES No Known Allergies REVIEW OF SYSTEMS: GENERAL: no fever RESPIRATORY: no cough, no wheezing or shortness of breath CARDIOVASCULAR: no chest pain, no palpitations GI: Intermittent nausea PSYCH: Anxiety with panic attack PHYSICAL EXAMINATION: VIDEO EXAM: (if completed, performed via video enabled technology) No exam performed ASSESSMENT: (F41.9) Anxiety (primary encounter diagnosis) PLAN: -Increase BuSpar 10 mg 3 times a day -Start hydroxyzine 25 mg as needed -Start ondansetron 4 mg as needed for nausea -TSMP psychiatry referral placed -Return to the clinic in 2 months Patient Instructions Shayla Harris MD [facility] [address] [address] [phone] I spent a total of 20 minutes on the date of the service which included [id number] patient care, counseling and educating the patient/family/caregiver, and ordering medications, tests, or procedures Kelsie Warner MD documented in this encounter [facility] 08-19-2023 Instructions Alonso Siu APRN.SLOT AMBASSADOR - 08/19/2023 4:31 PM EST Images from the original note were not included. Mutually Agreed Upon Goals Eating Plan: - MyFitness Pal or Lose It ELAN - Log intake 2 days per week. - Try to have a protein packed breakfast. - Try to eat 100 grams of protein per day. - Try to eat 2 fruits and 2 vegetables. - Buddy. - Mediterranean Diet. - To schedule the 3 month follow up call [phone]. Activity: Goal is 150 to 200 minutes per week. Stress: ELAN for meditation - Mindful Moments by [facility] Wellness. [email or web address] [email or web address]-[email or web address]#[email or web address]-[email or web address] --------- Begin a meal replacement program: What are meal replacements? Meal replacements are portion controlled products that are fortified with vitamins and minerals. Examples include liquid shakes, protein bars and frozen meals. You should replace 1-2 meals per day with a meal replacement and then have 1-2 balanced nutritious meals per day that incorporate lean protein, healthy starch, and fruits/vegetables. You can pair your meal replacement with fruit or vegetables to make them more satiating. Frozen Meals aim for 200-400 calories, 15-30 grams protein, 5+ grams fiber, < 50 grams Carbohydrate, <600 mg sodium Frozen Meals Calories Protein (grams) Carbs Frontera Bowls 240-320 9-23 33-47 Healthy Choice/Power Bowls 180-350 10-25 20-50 Aydee's (V, GF) 280-400 9-20 20-50 Smart Made/Smart Ones 150-320 14-26 16-50 Lean Cuisine 250-410 10-20 15-50 Eating Well 240-360 15-25 25-40 LUVO planted 260-430 10-20 16-55 Other Frozen meals: Kashi, Sweet Earth, Laboratory Mechanical Technician Pillo's Reduced Guilt, EVOL, Adilson Linn's Delights, Dr. Dawkins's Protein Drinks Calories Protein (grams) Sugars (grams) EAS Advant Edge Carb Control 110 17 1 Isopure Clear Zero Carb 160 40 0 Muscle Milk light 100-160 15-20 0-1 Ceedo Technologies Core Power 170 26 5 Orgain Protein Shake* 150 26 2 Premier Protein 160 30 1 Evolve (Vegan)* 160 20 5 Other Protein Shakes: Pure Protein, Ensure High Protein; *Offers plant based, dairy free option Protein Powders Calories (per scoop) Protein (g) Sugars (g) Isopure Zero Carb & Unflavored 105 25 0 Corn Shredder Whey Protein 100 18 3 Optimum Nutrition 100% whey 120-130 24 1-2 EAS 100% Whey or Soy 120 23 1 Genisoy Protein powder* 110 25 0 Quest 100 23 1 Garcia One Protein powder* 130 25 1 Orgain Protein Powder* 150-160 21 0-1 *Offers plant based, dairy free option Protein Bars Calories Protein (g) Sugars (g) Quest (GF) 190 20 0-1 Power Crunch 140-240 13-20 0-5 NuGo Slim (v) 180 17 1 Simply protein 150 15 1 Orgain Bar 140 10 4 Pure Protein 200 20 2 Think Thin (GF) 230 20 0-1 Keyon Bakery Paleo (GF) 180-190 20 2 Oh Yeah (one) (GF) 180-200 20 1 Oatmega 190 14 5 Other Protein bars: RX bar, Orgain, Fit Laurel, Protein One, Cohn protein bar; *GF= Gluten-Free; V= vegan [email or web address]/[email or web address]-pggaeq-jsvh e/ Victor healthy Eating Plate: Make most of your meal vegetables and fruits - of your plate: Aim for color and variety, and remember that potatoes don t count as vegetables on the Healthy Eating Plate because of their negative impact on blood sugar. Go for whole grains - of your plate: Whole and intact grains--whole wheat, barley, wheat berries, quinoa, oats, brown rice, and foods made with them, such as whole wheat pasta--have a milder effect on blood sugar and insulin than white bread, white rice, and other refined grains. Protein power - of your plate: Fish, poultry, beans, and nuts are all healthy, versatile protein sources--they can be mixed into salads, and pair well with vegetables on a plate. Limit red meat, and avoid processed meats such as araujo and sausage. Healthy plant oils - in moderation: Choose healthy vegetable oils like olive, canola, soy, corn, sunflower, peanut, and others, and avoid partially hydrogenated oils, which contain unhealthy trans fats. Remember that low-fat does not mean healthy. Drink water, coffee, or tea: Skip sugary drinks, limit milk and dairy products to one to two servings per day, and limit juice to a small glass per day. Stay active: The red figure running across the Healthy Eating Plate s placemat is a reminder that staying active is also important in weight control. Recipe ideas [email or web address] [email or web address]/wqcezsu-raccyubi-zm st/ A practical guide to the Mediterranean diet December 31, 2018 By Rianna Hurd, MS, RD, LDN, Contributor The Mediterranean diet has received much attention as a healthy way to eat, and with good reason. The Mediterranean diet has been shown to reduce risk of heart disease, metabolic syndrome, diabetes, certain cancers, depression, and in older adults, a decreased risk of frailty, along with better mental and physical function. In October, [employer] and [employer] Report named it the best diet overall for the second year running. What is the Mediterranean diet? The traditional Mediterranean diet is based on foods available in countries that border the Mediterranean Sea. The foundation for this healthy diet includes an abundance of plant foods, including fruits, vegetables, whole grains, nuts and legumes, which are minimally processed, seasonally fresh, and grown locally olive oil as the principal source of fat cheese and yogurt, consumed daily in low to moderate amounts fish and poultry, consumed in low to moderate amounts a few times a week red meat, consumed infrequently and in small amounts fresh fruit for dessert, with sweets containing added sugars or honey eaten only a few times each week wine consumed in low to moderate amounts, usually with meals. How to bring the Mediterranean diet to your plate How can you incorporate these healthy foods into your everyday life? Here are some small changes you can make. Pick one change every week and incorporate it gradually. Start with the changes you think will be the easiest. Switch from whatever fats you use now to extra virgin olive oil. Start by using olive oil in cooking, and then try some new salad dressings with olive oil as the base. Finally, use olive oil in place of butter on your crusty bread. Eat nuts and olives. Consume a handful of raw nuts every day as a healthy replacement for processed snacks. Add whole-grain bread or other whole grains to the meal. Select dense, chewy, country-style loaves without added sugar or butter. Kinta with bulgur, barley, farro, couscous, and whole-grain pasta. Begin or end each meal with a salad. Choose crisp, dark greens and whatever vegetables are in season. Add more and different vegetables to the menu. Add an extra serving of vegetables to both lunch and dinner, aiming for three to four servings a day. Try a new vegetable every week. Eat at least three servings a week of legumes. Options include lentils, chickpeas, beans, and peas. Eat less meat. Choose lean poultry in moderate, 3- to 4-ounce portions. Save red meat for occasional consumption or use meat as a condiment, accompanied by lots of vegetables, as in stews, stir-fries, and soups. Eat more fish, aiming for two to three servings a week. Both canned and fresh fish are fine. Substitute wine in moderation for other alcoholic beverages. Replace beer or liquors with wine -- no more than two 5-ounce glasses per day for men, and one glass per day for women. Cut out sugary beverages. Replace soda and juices with water. Eat less high-fat, high-sugar desserts. Poached or fresh fruit is best. Aim for three servings of fresh fruit a day. Save cakes and pastries for special occasions. Seek out the best quality food available. [employer] are an excellent source of locally grown, seasonal foods. Finally, try to have dinner as a family as often as possible. Food as a communal, shared experience is a big part of the Mediterranean approach. Mediterranean all day. https://www.health.[place].edu/b log/j-vncruxwhk-cdlmu-to-the-med esxiovzclg-qrug-2516988663190 Mediterranean diet 101 How to Follow the Mediterranean Diet - [facility] https://my.[facility].org/- /scassets/files/org/heart/patien t-education/jliav-ipczcp-wdtdurz s/dg-eddymebuyaxac-zqns.ashx?la= en Sample Meal plans https://CFO.com.[employer]/low-carb-me uxuvesqebmo-etpt-xxtobc-menu/?no wprocket=1 https://CFO.com.[employer]/wp-content/ uploads//7day_low_carb_me diterranean_diet_plan.pdf documented in this encounter [facility] 08-19-2023 History of Presen t illness Narrative BMI Obesity Medicine Consult Distance Health Visit 08/19/23 Virtual Visit (Audio/Visual)I have discussed the nature of this visit with the patient which will occur via Distance Health (Phone, Virtual Visit) and she agrees to proceed with this interaction. I have communicated my name and active licensure. The patient's identity and physical location were verified at the time of this visit. Either the patient or their legal claims representative has been informed of the risks and benefits of -- and alternatives to -- treatment through a remote evaluation and consents to proceed with the evaluation remotely. Done, at work. Patient Summary: Segundo Quezada is a 43 year old adult with obesity who presents to the [facility] Bariatric and Metabolic [place] for an initial evaluation of her obesity and is interested in behavioral and pharmacological weight loss approaches. Primary reason for wanting obesity treatment : To be healthier and feel better Overall goal: 140 lbs Weight History: She reports a strong family history of obesity and adult onset weight gain. She states her weight gain is related to the following factors, including stress eating, boredom eating, satiety issues, possibly female hormones (transgender male to female). Weight Graph: (please see graph scanned in chart) Obesigenic Medications: YES - estrogen and antidepressants possibly. Diet: Quality of diet: 24hr recall suggests unhealthy diet. Breakfast: tea and 4 pieces of toast with butter Lunch: leftovers Dinner: lasagna or pizza or burgers Snacks: chips and cookies and candy. Drinks: tea, coffee, water, gatorade zero. tries to avoid diet coke. ETOH: none Characterization of diet:unhealthy snacking, excessive cravings, and evening snacking. Salicylic Acid Blender of impaired eating habits:excessive hunger, lack of satiety, mindlessness , boredom, emotion, and stress Eating Disorder binge eating, night eating, and sleep related eating Diet History: Past weight loss attempts? commercial diets, self-directed, and exercise program. Anti-Obesity Medications >Phentermine: No uncontrolled HTN, No CVD Hx or hx of seizure disorder. No MAOI inhibitor use. No drug abuse hx. Crcl > 15. >Topiramate/zonisamide: No seizure or kidney stone hx. - hx of migraines, + hx of poor sleep. - Child bearing age. >Qsymia: see above >Contrave: No contraindications. Could affect mood. No uncontrolled HTN or hx of seizure disorder (lowers threshold for seizures). No MAOI inhibitor use. No opiate use. >Saxenda/Wegovy/Ozempic: Cost. Ins coverage? Dulagltuide. Pt reports no personal or family hx of medullary thyroid carcinoma or personal hx of pancreatitis? >Metformin: No contraindications or medication interactions. eGFR > 30. Exercise: Regular exercise: every night walks for 2 miles with dog and . Strength/resistance exercise:occasional boxing Barriers to regular exercise? time Work-related activity:Sedentary. ?Sleep: Duration: 5.5. - 6 hours. QUYNH NO ; CPAP NO Quality:adequate, Generally restful:Sleep-wake cycle disruption:sometimes d/t hip pain. STOP BANG 1. Snoring : Do you snore loudly (louder than talking, through closed doors)? NO 2. Tired : Do you often feel tired, fatigued, or sleepy during daytime? YES 3. Observed : Has anyone observed you stop breathing during sleep?NO 4. Blood Pressure: treated for high blood pressure?NO 5. BMI : BMI more than 35 kg/m2? NO 6. Age : Age over 50 yr old? NO 7. Neck circumference: Neck circumference greater than 40 cm?NO 8. Gender : Gender male? YES STOP BANG Score 2 , low ??Stress: Marked, Cause:Personal Obesity Related Comorbidities: Prior Weight Loss Surgery:No ACTIVE PROBLEM LIST History of 2019 Novel Coronavirus Disease (Covid-19) Gender Dysphoria Obesity Former Smoker Concern About Skin Disease Without Diagnosis Nasal Valve Collapse Nasal Septal Deviation Hypothyroidism Anxiety and Depression Dyspepsia Insomnia Recurrent Uti Pilonidal Cyst With Abscess Sinus Headache Anal Or Rectal Pain No history of SD, COPD, asthma, peptic ulcer dx, hyperlipidemia, gallstones, hypertension, cancer, DVT, PE, CVA, T2DM, gout, kidney stones, CKD. PAST SURGICAL HISTORY Procedure Laterality Date OSTEOTOMY - BODY OF MANDIBLE 07/2021 with cheek augmentation Obesity ROS/ FHx GEN: Fatigue:yes CV: h/o palpitations/cardiac arrhythmia, CP:No PULM: Asthma:No GI: GERD:Yes, controlled with Pepcid; Gallstones: No; Fatty liver disease:No; H/o hernia:No MSK: Joint Pain:hips at times : Nephrolithiasis:No; Stress incontinence:No Symptoms of PCOS(women):n/a + thyroid disorder and - diabetes NEURO: Migraines/YODER:No; H/o seizures: No Glaucoma:No; Cataracts No Symptoms of pseudotumor cerebri:No Family History Problem Relation Age of Onset other (hepatitis) Mother other (ulcers) Father No Known Problems Maternal Grandmother Alzheimer's Disease Maternal Grandfather No Known Problems Paternal Grandmother No Known Problems Paternal Grandfather Allergies Daughter Anesthesia Problems No Family History PREV: PAP n/a, Mammogram n/a and Colonoscopy n/a Social History Social History Tobacco Use Smoking status: Former Packs/day: 0.50 Years: 10.00 Additional pack years: 0.00 Total pack years: 5.00 Types: Cigarettes Quit date: 10/20/2016 Years since quittin.8 Smokeless tobacco: Never Vaping Use Vaping Use: Never used Substance Use Topics Alcohol use: No Drug use: No Occupation: [employer]. General appearance: NAD Mental status: awake and alert Pulm: not visibly SOB Neuro: speech fluent Results: reviewed with the patient Appointment on 07/16/2023 Component Date Value Ref Range Status Color 07/16/2023 Yellow Yellow Final Clarity 07/16/2023 Clear Clear Final Glucose, Urine 07/16/2023 Negative Negative Final Bilirubin, Urine 07/16/2023 Negative Negative Final Ketones, Urine 07/16/2023 Negative Negative Final Specific [place], Ur 07/16/2023 1.015 1.005 - 1.030 Final Hemoglobin/Blood,Ur 07/16/2023 Negative Negative Final pH, Urine 07/16/2023 7.0 5.0 - 8.0 Final Protein, Urine 07/16/2023 Negative Negative Final Urobilinogen 07/16/2023 0.2 EU/dL 0.2-1.0 EU/dL Final Nitrites 07/16/2023 Negative Negative Final Leuk Esterase 07/16/2023 Negative Negative Final WBC, Urine 07/16/2023 0-5 /HPF 0-5 /HPF Final RBC, Urine 07/16/2023 0-3 /HPF 0-3 /HPF Final Squamous Epithelial Cells 07/16/2023 Few /HPF Final Appointment on 07/15/2023 Component Date Value Ref Range Status WBC 07/15/2023 9.07 3.70 - 11.00 k/uL Final RBC 07/15/2023 3.97 (L) 4.20 - 6.00 m/uL Final Hemoglobin 07/15/2023 13.3 13.0 - 17.0 g/dL Final Hematocrit 07/15/2023 36.7 (L) 39.0 - 51.0 % Final MCV 07/15/2023 92.4 80.0 - 100.0 fL Final MCH 07/15/2023 33.5 26.0 - 34.0 pg Final MCHC 07/15/2023 36.2 (H) 30.5 - 36.0 g/dL Final RDW-CV 07/15/2023 11.9 11.5 - 15.0 % Final Platelet Count 07/15/2023 207 150 - 400 k/uL Final MPV 07/15/2023 11.0 9.0 - 12.7 fL Final Neutrophils % 07/15/2023 59.7 % Final Abs Neut 07/15/2023 5.42 1.45 - 7.50 k/uL Final Lymphocytes % 07/15/2023 31.9 % Final Abs Lymph 07/15/2023 2.89 1.00 - 4.00 k/uL Final Monocytes % 07/15/2023 6.5 % Final Abs [place] 07/15/2023 0.59 <0.87 k/uL Final Eosinophils % 07/15/2023 1.1 % Final Abs Eosin 07/15/2023 0.10 <0.46 k/uL Final Basophils % 07/15/2023 0.6 % Final Abs Baso 07/15/2023 0.05 <0.11 k/uL Final Immature Granulocytes % 07/15/2023 0.2 % Final Abs Immature Gran 07/15/2023 <0.03 <0.10 k/uL Final NRBC 07/15/2023 0.0 /100 WBC Final Absolute nRBC 07/15/2023 <0.01 <0.01 k/uL Final Diff Type 07/15/2023 Auto Final TSH 07/15/2023 4.640 (H) 0.270 - 4.200 mIU/L Final T3 07/15/2023 135 79 - 165 ng/dL Final Free T4 07/15/2023 0.9 0.9 - 1.7 ng/dL Final Impression: Segundo Quezada is a 43 year old adult with Class I obesity (Body mass index is 34.7 kg/m .) who has adult onset obesity with several periods of weight loss followed by weight gain . The causes of her obesity are multifactorial, biological, psychological and social and environmental. Specific factors include exposure to weight gain promoting medication(s) , increased consumption of high calorie/process foods, and stress/depression. She has no significant weight-related medical comorbidities which increase her cardiovascular mortality risk. There are no additional metabolic obesity complications. Other medical conditions as above. Regarding her lifestyle, as above, she has several behavioral contributors; her physical activity is regular. Overall, it is clear that her quality of life is moderately compromised by her weight. It is likely a combination of weight loss therapies will be needed. She appears motivated today. Plan: -- Based on the severity and resistance of the obesity to more conservative weight loss approaches, I believe a combination of behavioral and pharmacological intervention is the best and most appropriate group home therapeutic option. -- We discussed several strategies to track food intake and increase mindfulness around eating. See eating plan below. -- Encouraged the patient to improve her physical activity. Although cardiovascular exercise is most beneficial for weight loss initially, we discussed healthy muscle from a combination of resistance training and cardiovascular exercise is the best group home plan. An overall goal of 200 minutes per week of exercise has been effective in weight loss and maintenance. -- Discussed AOM's at length. She would like to try Dulaglutide. Discussed common s/e and provided drug information via [employer] message. Discussed medical reimbursement specialist and recommended watching the video provided. Start dulaglutide 0.75 mg weekly inj x 4 weeks then increase to 1.5 mg weekly. -- follow-up visit for management of above interventions in 3 months. Mutually Agreed Upon Goals Eating Plan: - Reflex[employer]oton[employer] Pal or Lose It ELAN - Log intake 2 days per week. - Try to have a protein packed breakfast. - Try to eat 100 grams of protein per day. - Try to eat 2 fruits and 2 vegetables. - Buddy. - Mediterranean Diet. Activity: Goal is 150 to 200 minutes per week. Stress: ELAN for meditation - Mindful Moments by [facility]. https://www.Donde.[employer] Lending/healt h/mental-health/dfi-fzhobixjhq-z drciu-snalzfb-dkhg#our-picks I spent a total of 55 minutes on the date of the service which included preparing to see the patient, dbrp-vx-hapl patient care, completing clinical documentation, obtaining and/or reviewing separately obtained history, performing a medically appropriate examination, counseling and educating the patient/family/caregiver, and ordering medications, tests, or procedures. Alonso Siu APRN.SLOT AMBASSADOR documented in this encounter [facility] 08-18-2023 Miscellaneous Notes Last OV: 07/16/23 Next OV: 08/19/23 Pharmacy calls in requesting the following refill(s): Requested Prescriptions Pending Prescriptions Disp Refills progesterone micronized (PROMETRIUM) 100 mg capsule [Pharmacy Med Name: PROGESTERONE 100 MG CAPSULE] 180 capsule 0 Sig: take 1 capsule by mouth twice a day Maia Peraza LPN August 18, 2023 4:11 PM documented in this encounter [facility] 07-07-2023 Miscellaneous Notes Pharmacy electronically requests the following refill(s) Last ov 06/26/23 Future 07/16/23 Requested Prescriptions Pending Prescriptions Disp Refills busPIRone (BUSPAR) 7.5 mg tablet [Pharmacy Med Name: BUSPIRONE HCL 7.5 MG TABLET] 180 tablet 1 Sig: Take 1 tablet by mouth twice daily. Donna Martinez LPN documented in this encounter [facility] 06-26-2023 History of Presen t illness Narrative DISTANCE HEALTH VISIT This Team Access Model visit is a virtual encounter. It required patient-provider interaction for the medical decision making as documented below. I have communicated my name and active licensure. The patient's identity and physical location were verified at the time of this visit. Either the patient or their legal claims representative has been informed of the risks and benefits of -- and alternatives to -- treatment through a remote evaluation and consents to proceed with the evaluation remotely. Segundo Quezada is a 42 year old adult seen for follow-up. HISTORY REVIEWED (electronic chart updated): - medical history - allergies Pt goes by Shabbir. Last OV with me was on 05/22/2023/ PMH of sinus headaches, recurrent UTI, hypothyroidism, gender dysphoria, anxiety, MDD PSHx of s/p open septorhinoplasty, frontal sinus setback, and contouring of the forehead and supraorbital bar, scalp advancement with lowering of the hairline and brow lift on She is on a GAHT regimen of estradiol 2 mg TID, spironolactone 50 mg BID, and progesterone 100 mg QHS. She endorses weight gain related to food interactions - eats instead of smoking. Always voracious hungry Is walking and exercising regularly. Reports she is having ongoing weight gain. She thinks she may also have a hemorrhoid. Noted that 5-6 days ago she had discomfort and pressure in the anal canal. She has had some mild constipation. Sts she was seen in the ED locally- was told that any abnormality was found. REVIEW OF SYSTEMS: All other ROS: negative As noted in HPI PHYSICAL EXAMINATION: VIDEO EXAM: (if done, performed via video enabled technology) GENERAL: alert and appropriate, in no distress and well-hydrated, well nourished SKIN: no rash noted HEAD: normocephalic, no abnormality or lesion noted EYES: no injection and visual acuity is grossly normal EARS: hearing grossly normal NOSE: external nose normal without rhinorrhea OROPHARYNX: moist mucus membranes NECK: Supple RESPIRATORY: breathing non-labored CHEST: equal chest rise with normal respiratory effort Component Latest Ref Rng & Units 07/10/2021 TSH 0.270 - 4.200 uU/mL 3.120 Free T4 0.9 - 1.7 ng/dL 0.8 (L) T3 79 - 165 ng/dL 130 ASSESSMENT: Encounter Diagnosis ICD-10-CM 1. Acquired hypothyroidism E03.9 TSH BLD T3 BLD T4 FREE/FREE THYROX ENDOCRINE MEDICAL WEIGHT MANAGEMENT 2. Gender dysphoria F64.9 ENDOCRINE MEDICAL WEIGHT MANAGEMENT 3. Class 1 obesity with body mass index (BMI) of 33.0 to 33.9 in adult, unspecified obesity type, unspecified whether serious comorbidity present E66.9 ENDOCRINE MEDICAL WEIGHT MANAGEMENT Z68.33 4. Anal or rectal pain K62.89 PLAN: #Hypothyroidism TFTs are overdue - will assess and see if she is currently euthyroid on medication. #Obesity, BMI > 33. We discussed the multidisciplinary, inter-professional approach to weight management at the [facility]. The patient is amenable to a referral to Endocrine Weight Management. #gender dysphoria Continue current medications. #anal pain Advised that we can examine her to better determine the cause when she comes her visit. She was amenable to this plan. Medical Decision Making: Problems: Moderate: 2+ stable chronic illnesses Data: Unique test(s) ordered: 3+ Risk: Moderate: Drug management High: High risk from testing/treatment Medical Decision Making Level: 4 - Moderate Jared Schilling MD, MPH Director - [facility] [employer] - Transgender Surgery and Medicine Program [facility] Internal Medicine and Geriatrics He/Him/They/Them documented in this encounter [facility] 06-26-2023 History of Past i llness Narrative Problem Noted Date Diagnosed Date Resolved Date Anal or rectal pain 06/26/2023 12/23/19 24 Pilonidal cyst with abscess 05/22/2023 05/22/2023 12/23/2023 Sinus headache 01/13/2023 05/22/2023 12/23/2023 Nasal valve collapse 04/12/2022 024 Nasal septal deviation 04/12/202212/22 Drug reaction 11/10/2020 04/12/2022 Cellulitis and abscess of unspecified site 02/13/2009 08/10/2019 documented as of this encounter (statuses as of 12/24/2023) [facility] History of Past illness Narrative* Problem Noted Date Diagnosed Date Resolved Date Anal or rectal pain 06/26/2023 12/23/19 24 Pilonidal cyst with abscess 05/22/2023 05/22/2023 12/23/2023 Sinus headache 01/13/2023 05/22/2023 12/23/2023 Nasal valve collapse 04/12/2022 024 Nasal septal deviation 04/12/202212/22 Drug reaction 11/10/2020 04/12/2022 Cellulitis and abscess of unspecified site 02/13/2009 08/10/2019 documented as of this encounter (statuses as of 01/05/2024) [facility] History of Past illness Narrative* Problem Noted Date Diagnosed Date Resolved Date Anal or rectal pain 06/26/2023 12/23/19 24 Pilonidal cyst with abscess 05/22/2023 05/22/2023 12/23/2023 Sinus headache 01/13/2023 05/22/2023 12/23/2023 Nasal valve collapse 04/12/2022 024 Nasal septal deviation 04/12/202212/22 Drug reaction 11/10/2020 04/12/2022 Cellulitis and abscess of unspecified site 02/13/2009 08/10/2019 documented as of this encounter (statuses as of 01/22/2024) [facility] History of Past illness Narrative* Problem Noted Date Diagnosed Date Resolved Date Anal or rectal pain 06/26/2023 12/23/19 24 Pilonidal cyst with abscess 05/22/2023 05/22/2023 12/23/2023 Sinus headache 01/13/2023 05/22/2023 12/23/2023 Nasal valve collapse 04/12/2022 024 Nasal septal deviation 04/12/202212/22 Drug reaction 11/10/2020 04/12/2022 Cellulitis and abscess of unspecified site 02/13/2009 08/10/2019 documented as of this encounter (statuses as of 01/27/2024) [facility] History of Past illness Narrative* Problem Noted Date Diagnosed Date Resolved Date Anal or rectal pain 06/26/2023 12/23/19 24 Pilonidal cyst with abscess 05/22/2023 05/22/2023 12/23/2023 Sinus headache 01/13/2023 05/22/2023 12/23/2023 Nasal valve collapse 04/12/2022 024 Nasal septal deviation 04/12/202212/22 Drug reaction 11/10/2020 04/12/2022 Cellulitis and abscess of unspecified site 02/13/2009 08/10/2019 documented as of this encounter (statuses as of 01/27/2024) [facility] Discharge summary Author [facility] June 26, 2023 12:53am Note Date/Time June 25, 2023 11:08pm [facility] Medical Records Department [address] [place] [address] Emergency Department Summary 06/25/23 MR#: [id number] Acct: [id number] Name: SEGUNDO QUEZADA Rep #:[id number] : 1980 42 From: Dayne Cosme MD PCP: JARED SCHILLING Status:REG ER Location: ED HPI History of Present Illness Chief Complaint: Male Pain/Injury Detail of Chief Complaint: Peritoneal pain for last several days. Informant: patient Pain Onset: Days Context: Gradual Onset Timing: Continuous Current Severity: Moderate Maximum Severity: Moderate Narrative Narrative: 42-year-old biological male transitioning to a female but has not had any surgery as of yet. Complaining of several day history of beginning around Friday perineal pain. No dysuria. Painful bowel movement. No bleeding. No fever. No prior history. Prior similar symptoms: No Recent Illness/Hospitalization: No [facility] Medical History (Updated 06/26/23 @ 00:[address] Dayne Cosme MD) Depression Home Medications fluvoxamine 50 mg tablet 150 mg PO QHS 09/16/16 [History Last Taken Unknown] dexamethasone 6 mg tablet 6 mg PO DAILY 5 days 11/01/20 [Rx Last Taken Unknown] ibuprofen 600 mg tablet 600 mg PO Q6H PRN PRN fever or pain #20 tabs 02/11/22 [Rx Last Taken Unknown] tramadol 50 mg tablet 50 mg PO Q8H PRN pain #9 tabs 02/11/22 [Rx Last Taken Unknown] oxycodone-acetaminophen 5 mg-325 mg tablet (Percocet) 1 tab PO Q6H PRN pain 3 days #12 tabs 02/25/23 [Rx Last Taken Unknown] Allergy/AdvReac Type Severity Reaction Status Date / Time hydrocodone AdvReac Other Verified 06/25/23 22:17 oxycodone [Oxycodone] AdvReac Other Verified 06/25/23 22:17 Social History Smoking Status: Never smoker ROS ROS ED ROS Narrative Perineal pain. Review of Systems ROS Unobtainable: Denies due to encephalopathy Constitutional Constitutional ED: Denies chills or fever(s) Eyes Eyes: Denies blurry vision ENT ENT ED: Denies ear pain Cardiovascular Cardiovascular: Denies chest pain Respiratory/Chest Respiratory/Chest: Denies cough or dyspnea Gastrointestinal Gastrointestinal: Denies abdominal pain Genitourinary Genitourinary ED: Denies dysuria Musculoskeletal Musculoskeletal: Denies arthralgias Integumentary Denies abscess Neurologic Neurologic: Denies headache(s) Psychiatric Psychiatric: Denies anxiety Endocrine Endocrinology: Denies polydipsia Hematologic/Lymphatic Hematologic/Lymphatic: Denies easy bleeding or easy bruising Allergic/Immunologic Allergic/Immunologic ED: Denies mouth swelling or tongue swelling EXAM Physical Exam Narrative Exam Narrative: 42-year-old biological male transitioning to female. Vital signs stable and afebrile. H EENT exam unremarkable. Neck nontender. Lungs clear to auscultation bilaterally. Heart regular rhythm no murmur. Chest wall nontender. Abdomen soft nontender. Moving all 4 extremities. Neurovascular intact. Perineal area is warm to touch and tender primarily around the anus. There is no obvious abscess. There is no pus. The male external genitalia is nontender without swelling or redness. Clinically I suspect perianal or perirectal abscess. Const Vital Signs: 06/25/23 22:15 Temperature 98 F Temperature Source Temporal Pulse Rate 85 Respiratory Rate 16 Blood Pressure 141/84 H Blood Pressure Mean 103 Pulse Ox 98 Oxygen Delivery Method Room Air Positive well nourished and well developed; Negative for cachectic, contractures or unkempt General Appearance ED: well developed and NAD; Negative for unkempt, cachectic, contractures or pallor Nutritional Appearance: Negative for cachectic HEENT Reports moist mucous membranes; Denies dry mucous membranes normocephalic and atraumatic; Negative for trauma or tenderness Mouth ED: No dry mucous membranes Mouth: No dry mucous membranes Eyes PERRL and EOMs intact bilaterally General Eye ED: Negative for pale conjunctiva or scleral icterus Neck no lymphadenopathy, supple and no JVD General: Negative for tenderness Resp normal respiratory effort and clear to auscultation bilaterally Effort and Inspection: Negative for retractions Auscultation: Negative for rales, rhonchi or wheezes Cardio regular rate, regular rhythm, S1 normal heart sound, S2 normal heart sound and no murmurs Rate: Negative for bradycardia or tachycardic Rhythm: Negative for abnormal rhythm Heart Sounds: Negative for other GI non-tender, non-distended and no masses Auscultation: normoactive bowel sounds Palpation: soft; Negative for tender or guarding Back/Spine no CVA tenderness General Back: Negative for CVA tenderness Cervical Spine: Negative for cervical spine tenderness Thoracic Spine / Upper Back: Negative for thoracic spinal tenderness Lumbar Spine / Lower Back: Negative for lumbar spinal tenderness Extremity normal to inspection General Extremety ED: Negative for edema or pulses abnormal General Extremity: Negative for edema or pulses abnormal Neuro oriented x3, CN's II-XII intact bilaterally, moves all extremities and no focal motor deficits Sensorium / Orientation: alert, oriented to person, oriented to place and oriented to time; Negative for orientation impaired, confused, lethargic or stuporous Motor Exam: strength 5/5 throughout Psych mental status grossly normal Appearance: Negative for unkempt Attitude: No agitated Mood & Affect: Negative for depressed Skin Skin Narrative: Tender perineum. No obvious abscess. General Skin Exam: Negative for jaundice or pallor Lesions: no lesions Rashes: no rashes MDM MDM MDM Narrative Medical decision making narrative: 42-year-old biological male transitioning to female. Complaining of perineal pain. Concern for perianal and perirectal abscess. Not seen on exam. Tender to the area. Screening labs and a CT of the pelvis with IV contrast is being obtained. Repeat exam unchanged. I do not see any cellulitis in the perineal area. I do not see an abscess. I discussed with the patient normal white count and unremarkable labs. Also the negative CAT scan results. Patient will follow-up with his primary care physician if not improving. Motrin and Tylenol for pain. Warm sits baths. Lab Data Attestation: I reviewed the patient's lab results. Lab results narrative: CBC unremarkable. White count of 7. H&H 12.4 and 37. Platelets 172. Electrolytes normal gap of 3 normal BUN and creatinine of 15 and 0.8. Glucose 108. CAT scan of the pelvis with IV contrast was read by the radiologist showed no acute abnormality. No perirectal or perianal abscess. I reviewed the film also. Labs: Laboratory Results - last 24 hr 06/25/23 23:20 WBC 7.7 RBC 4.05 L Hgb 12.4 L Hct 37.1 L MCV 91.6 MCH 30.6 MCHC 33.4 RDW Std Deviation 39.1 RDW Coeff of Wan 11.8 Plt Count 172 MPV 9.7 Immature Gran % (Auto) 0.400 Neut % (Auto) 62.7 Lymph % (Auto) 28.2 Valley % (Auto) 7.3 Eos % (Auto) 1.0 Baso % (Auto) 0.4 Absolute Neuts (auto) 4.8 Absolute Lymphs (auto) 2.16 Nucleated RBC % 0 Sodium 139 Potassium 3.7 Chloride 106 Carbon Dioxide 30.0 Anion Gap 3 L BUN 15 Creatinine 0.86 Estim Creat Clear Calc 100.98 Est GFR (MDRD) Af Amer 125 Est GFR (MDRD) Non-Af 103 BUN/Creatinine Ratio 17.4 Glucose 108 H Calcium 9.0 Radiography Diagnostic Testing: Clinical Impression(s) from Imaging Studies Pelvis CT 06/25/23 23:01 IMPRESSION: There is no evidence of perineal abscess. Electronically Signed: Radha Deng MD at 23:53 EDT , Discharge Plan Triage Chief Complaint: Male Pain/Injury ED Provider: Dayne Cosme Dx/Rx/DC Orders Clinical Impression: Male perineal pain Prescriptions: No Action fluvoxamine 50 MG tablet 150 mg PO QHS dexamethasone 6 MG tablet 6 mg PO DAILY 5 Days 0RF tramadol 50 mg tablet 50 mg PO Q8H PRN (Reason: pain) Qty: 9 0RF ibuprofen 600 mg tablet 600 mg PO Q6H PRN PRN (Reason: fever or pain) Qty: 20 0RF oxycodone-acetaminophen [Percocet] 5-325 mg tablet 1 tab PO Q6H PRN (Reason: pain) 3 Days Qty: 12 0RF Primary Care Provider: JARED SCHILLING Referrals: Care Physician,No Primary [Non-Staff] - Activity Restrictions/Additional Instructions: Warm soaks. Motrin and Tylenol for pain. Your lab work was unremarkable. Your CAT scan did not show any abnormality. There was no abscess. Currently there is no other signs of infection. This should progressively improve if not follow-up with your primary care physician Disposition Disposition: Home, Self Care What to do if you have Problems For any increased pain, shortness of breath, bleeding, nausea or vomiting, chestpain, or any unexpected problems, contact your Primary Care Provider. Call [facility] ([phone]) or report to the closest Emergency Room. Call 911 if necessary. 06/26/23 0053 <Electronically signed by Dayne Cosme MD> Cosigner Signature (if applicable): CC: JARED SCHILLING ~ Signed [facility] Work Phone: 1(558) 822-965109-05-2023 History of Present illness Narrative* Elizabeth Francois ST - 06/17/2023 5:02 PM EDT DATE OF PHOTOS: 06/17/2023 Body Part: Full Face and Oral ST Selene June 18, 2023 5:02 PM documented in this encounterOhiohealth [facility]23 Miscellaneous Notes* Telephone Encounter - Jared Schilling MD - 06/12/2023 4:00 PM EDT I will fill Rx as requested. The patient is overdue for an in person visit. Please remind the patient to set up a medication surveillance visit in the next few months please. Thank you! * Telephone Encounter - Alona Sanders RN - 06/12/2023 3:33 PM EDT Physician: Jared Schilling MD Call from patient requesting refill. Please E-Scribe Last OV: 12/24/2019 with Jared Schilling MD Last Distance Health Visit :05/22/23 with Jared Schilling MD Future OV: No future appointments scheduled with Jared Schilling MD Requested Prescriptions Pending Prescriptions Disp Refills traZODone (DESYREL) 50 mg tablet 30 tablet 2 Sig: Take 1 tablet by mouth at bedtime as needed. Alona Sanders RN * Telephone Encounter - Arleth Coulter - 06/12/2023 3:15 PM EDT Patient states that they are out of medication and would like it called in to pharmacy as soon as possible. Patient has been identified by name and date of : Yes Requested Prescriptions Pending Prescriptions Disp Refills traZODone (DESYREL) 50 mg tablet 30 tablet 2 Sig: Take 1 tablet by mouth at bedtime as needed. [facility] # [id number] RX INSTRUCTIONS: Patient aware RX will be sent to pharmacy. No need to notify patient. Arlethsheri Coulter documented in this encounterOhiohealth Arthur [facility]08-24-2023 Miscellaneous Notes* Telephone Encounter - Majo Tuttle RN - 06/05/2023 11:07 AM EDT Pharmacy requesting refills as follows: Requested Prescriptions Pending Prescriptions Disp Refills estradiol (ESTRACE) 2 mg tablet [Pharmacy Med Name: ESTRADIOL 2 MG TABLET] 270 tablet 1 Sig: take 1 tablet by mouth three times a day spironolactone (ALDACTONE) 50 mg tablet [Pharmacy Med Name: SPIRONOLACTONE 50 MG TABLET] 180 tablet1 Sig: take 1 tablet by mouth twice a day SUSANA: 05/22/2023 FOV: none scheduled Please review and advise. Majo Tuttle RN documented in this encounterOhiohealth Arthur [facility]08-10-2023 Instructions* Patient Instructions* Jared Schilling MD - 05/22/2023 8:05 PM EDT The costs listed are the current costs per session for laser hair removal: Small areas ($275) Bikini Pilonidal cyst Upper Arms Neck Hands Underarms Upper lip Chin Feet Ears Medium ($500) Thighs Ecuadorean Full face Forearms Chest (AFAB) Back (AFAB) Abdomen Large ($750) Back (AMAB) Chest (AMAB) Lower legs Buttocks [employer] number: [phone] for a direct line for scheduling. documented in this encounterOhiohealth Arthur [facility]08-10-2023 History of Present illness Narrative* Jared Schilling MD - 05/22/2023 7:47 PM EDT DISTANCE HEALTH VISIT This Team Access Model visit is a virtual encounter. It required patient- provider interaction for the medical decision making as documented below. I have communicated my name and active licensure. The patient's identity and physical location wereverified at the time of this visit. Either the patient or their legal claims representative has been informed of the risks and benefits of -- and alternatives to -- treatment through a remote evaluation andconsents to proceed with the evaluation remotely. Segundo Quezada is a 42 year old adult seen for [facility] surveillance. HISTORY REVIEWED (electronic chart updated): - medical history - medications - allergies The patient goes by Shabbir. Her last VV with me was on 05/05/2023. She is on a regimen of estradiol 2 mg TID, spironolactone 50 mg BID, and progesterone 100 mg QHS. We started treatment for a MDR UTI with Ciprofloxacin 500 mg BID x 5 days at that visit. Sts she is feeling much better after atbx. She reports that her urinary Sx have improved and resolved. She has not yet had gender affirming bottom surgery, but this is a future care goal. REVIEW OF SYSTEMS: All other ROS: negative As noted in HPI PHYSICAL EXAMINATION: VIDEO EXAM: (if done, performed via video enabled technology) GENERAL: alert and appropriate, in no distress and well-hydrated, well nourished SKIN: no rash noted HEAD: normocephalic, no abnormality or lesion noted EYES: no injection and visual acuity is grossly normal EARS: hearing grossly normal NOSE: external nose normal without rhinorrhea OROPHARYNX: moist mucus membranes NECK: Supple RESPIRATORY: breathing non-labored CHEST: equal chest rise with normal respiratory effort Renal US 05/05/2023: IMPRESSION: NORMAL SONOGRAPHIC APPEARANCE OF KIDNEYS ASSESSMENT: Encounter Diagnosis ICD-10-CM 1. Gender dysphoria F64.9 PLAN: #gender dysphoria Discussed that her UTI Sx have reviewed. She states that with progesterone, she had more breast fullness and less arm hair as well. She alsoreports better mood and increased libido. All of these effects have been positive. SDM utilized to increase her Prometrium to 100 mg BID. Continue estradiol and spironolactone. We discussed hair removal treatments. Due to her blonde/red hair, discussed that laser hair removal is for darkly pigmented hair. Laser Hair Removal: Laser Hair removal or electrolysis is a requirement before gender affirming vaginoplasty at the [facility]. Most health insurances are covering the cost of laser hair removal prior to phalloplasty and vaginoplasty. I discussed laser hair removal services at the [facility] with the patient. I discussed that 6-8 sessions of hair removal are generally recommended for the best results. The costs listed are the current costs per session: Small areas ($275) Bikini Pilonidal cyst Upper Arms Neck Hands Underarms Upper lip Chin Feet Ears Medium ($500) Thighs Ecuadorean Full face Forearms Chest (AFAB) Back (AFAB) Abdomen Large ($750) Back (AMAB) Chest (AMAB) Lower legs Buttocks After our discussion, the patient accepts a consultation to Plastic Surgery for a consultation for laser hair removal. The patient was provided the [employer] number: [phone] for a direct line for scheduling. We reviewed [employer] Transgender Health (WPATH) surgical criteria for gender affirmation care including: Being on Gender Affirmation Hormonal Treatment (GAHT) for 1 year (as clinically appropriate) AND -1 Letter of Recommendation (MANDO) from a mental health professional (MHP) familiar with the care ofgender dysphoria for top surgery -2 MANDO from MHPs for bottom surgery. I encouraged pt to check with their insurance company on any specific WPATH requirements other thanthese. We discussed potential surgical referrals at the [facility] TS. FU in 3 months, sooner PRN. Medical Decision Making: Problems: Moderate: 1+ chronic illnesses with change Risk: Moderate: Drug management High: High risk from testing/treatment Medical Decision Making Level: 4 - Moderate Jared Schilling MD, MPH Director - [facility] [employer] - Transgender Surgery and Medicine Program [facility] Internal Medicine and Geriatrics He/Him/They/Them documented in this encounterOhiohealth Arthur [facility]08-06-2023 Discharge summary Author Suleman [facility] May 18, 2023 8:08pm Note Date/Time May 18, 2023 6:5 0pm [facility] Medical Records Department [address] [place] [address] Emergency Department Summary 05/18/23 MR#: [id number] Acct: [id number] Name: SEGUNDO QUEZADA Rep #:[id number] : 1980 42 From: Suleman [place] PCP: Care Physician,No Primary Status :REG ER Location: ED HPI History of Present Illness Chief Complaint: Lower Extremity Injury PFSH PFSH Medical History no medical history Home Medications fluvoxamine 50 mg tablet 150 mg PO QHS 09/16/16 [History Last Taken Unknown] dexamethasone 6 mg tablet 6 mg PO DAILY 5 days 11/01/20 [Rx Last Taken Unknown] ibuprofen 600 mg tablet 600 mg PO Q6H PRN PRN fever or pain #20 tabs 02/11/22 [Rx Last Taken Unknown] tramadol 50 mg tablet 50 mg PO Q8H PRN pain #9 tabs 02/11/22 [Rx Last Taken Unknown] oxycodone-acetaminophen 5 mg-325 mg tablet (Percocet) 1 tab PO Q6H PRN pain 3 days #12 tabs 02/25/23 [Rx Last Taken Unknown] Allergy/AdvReac Type Severity Reaction Status Date / Time hydrocodone AdvReac Other Verified 05/18/23 18:46 oxycodone [Oxycodone] AdvReac Other Verified 05/18/23 18:46 Social History Smoking Status: Never smoker EXAM Physical Exam Const Vital Signs: 05/18/23 18:44 Temperature 98 F Temperature Source Temporal Pulse Rate 79 Respiratory Rate 16 Blood Pressure 127/81 H Blood Pressure Mean 96 Pulse Ox 97 Oxygen Delivery Method Room Air MDM MDM MDM Narrative Medical decision making narrative: HISTORY OF PRESENT ILLNESS: 42-year-old male here with left foot pain. Patient that she was walking her dog last night when her foot fell into a hole and heard a pop and crunch. States the pain in her left foot is constant, severe worse with movement and palpation. REVIEW OF SYSTEMS: Pertinent positives: Left foot pain Pertinent negatives: Numbness, tingling PHYSICAL EXAM: Nursing triage notes reviewed, Vital signs reviewed Constitutional: please see [facility] : No CVAT Extremities: No edema, TTP over left fifth metatarsal. Neuro: Intact sensation L1-S1 dermatomal distributions. Intact 5/5 strength in hip flexion (T12-L3). Knee extension (L2-L4). Ankle dorsiflexion (L4-L5). Ankle plantar flexion (S1). Great toe extension (L5). 2+ patellar and Achilles DTRs. Skin: No rash or lesions noted MEDICAL DECISION MAKING: Chief Complaint: Left foot pain External records reviewed: Prior imaging studies reviewed. X-ray of the left foot from 2021 shows soft tissue swelling, no acute fracture dislocation Factors affecting care: none Consults: none ALL IMAGES (IF OBTAINED) HAVE BEEN PERSONALLY REVIEWED AND INTERPRETED BY MYSELF. [facility] Narrative: Patient was hemodynamically stable, afebrile, nontoxic-appearing I considered the following differential diagnosis: Left foot contusion, fracture, dislocation, sprain X-ray was obtained to rule out fracture dislocation. X-ray was unremarkable. I personally read reviewed the x-ray which showed no obvious fracture dislocation. Initially ordered 2 view foot x-ray. Initial 2 view did have some nondescript bony abnormality noted over the cuneiform. Obtained an oblique view which showed no obvious fracture. Radiologist reviewed my interpretation. Patient is appropriate discharge home with a postop shoe, Tylenol and ibuprofen instructions. Gave strict return precautions. The patient and/or family, caregivers express understanding. The patient and/or family, caregivers agrees with the plan. Shared decision making: I will have a discussion with the patient and or visitors regarding risk/benefits of further testing or admission. They will be made aware of of the risk/benefits inherent in this decision they will be given the opportunity to voice understanding. Total critical care time today provided was at least 0 minutes. This excludes separately billable procedures. Critical care time (if documented) is secondary to the patient having high probability of clinically significant/life threatening deterioration in the patient's condition which required my urgent intervention. Radiography Chest X-Ray - ED: Read by ED Physician Diagnostic Testing: Clinical Impression(s) from Imaging Studies Foot X-Ray 05/18/23 19:05 IMPRESSION: Negative left foot x-rays. Electronically Signed: Eugenio Babb MD at 19:29 EDT Reading Location ID and State: [facility] / [place] , Service support , Discharge Plan Triage Chief Complaint: Lower Extremity Injury ED Provider: Suleman Artis Dx/Rx/DC Orders Clinical Impression: Contusion of foot Instructions: Bone Contusion Prescriptions: No Action fluvoxamine 50 MG tablet 150 mg PO QHS dexamethasone 6 MG tablet 6 mg PO DAILY 5 Days 0RF tramadol 50 mg tablet 50 mg PO Q8H PRN (Reason: pain) Qty: 9 0RF ibuprofen 600 mg tablet 600 mg PO Q6H PRN PRN (Reason: fever or pain) Qty: 20 0RF oxycodone-acetaminophen [Percocet] 5-325 mg tablet 1 tab PO Q6H PRN (Reason: pain) 3 Days Qty: 12 0RF Primary Care Provider: Care Physician,No Primary Referrals: Dayo Aldrich MD [Med Staff - [employer]] - Activity Restrictions/Additional Instructions: Thank you for trusting us with your care today! Please take Tylenol (2 pills, 650 mg), ibuprofen (2 pills, 400 mg) every 6 hoursas needed for pain and fever control. Please return to the emergency department if your symptoms change or worsen. Please follow with your primary care physician for further outpatient evaluationand management. Disposition Disposition: Home, Self Care What to do if you have Problems For any increased pain, shortness of breath, bleeding, nausea or vomiting, chestpain, or any unexpected problems, contact your Primary Care Provider. Call [facility] ([phone]) or report to the closest Emergency Room. Call 911 if necessary. 05/18/232007 <Electronically signed by Suleman Artis DO> Cosigner Signature (if applicable): CC: No Primary Care Physician ~ Signed [facility] Work Phone: 1(162) 960-295308-02-2023 Miscellaneous Notes* Telephone Encounter - Lani Mercado RN - 05/14/2023 10:39 AM EDT Physician: Dr. Schilling Call from pharmacy requesting refill. Please E-Scribe Last OV: 05/05/[address] Schilling Future OV: none scheduled Requested Prescriptions Pending Prescriptions Disp Refills progesterone micronized (PROMETRIUM) 100 mg capsule [Pharmacy Med Name: PROGESTERONE 100 MG CAPSULE] 30 capsule 2 Sig: take 1 capsule by mouth at bedtime Pharmacy Name: [id number] [place] [id number] - [address] [facility] [phone] [id number] Items addressed in this encounter: Refill Encounter Encounter closed with the following patient care items forwarded to provider. refill request Lani Mercado RN May 14, 2023 10:40 AM 10:40 AM documented in this encounterOhiohealth Arthur [facility]07-28-2023 History of Present illness Narrative* Onelia Weiss RDMS - 05/09/2023 1:00 PM EDT Radiology Service Progress Note PATIENT NAME: Segundo Quezada DATE OF SERVICE: May 09, 2023 TIME: 1:26 PM PATIENT IDENTITY VERIFICATION COMPLETED USING TWO (2) IDENTIFIERS: Name and Date of confirmedby patient verbally. FALL SCREENING: Has the patient had 2 falls in the last year or 1 fall with injury or currently using an Ambulatory Assistive Device (Walker, Cane, Wheelchair, Crutches, etc.)? No PATIENT GENDER DATA: Female. status: : No status: NO. PATIENT RELEVANT IMPLANT DATA REVIEWED: Not Applicable RADIOLOGY DEPARTMENT: Ultrasound PERIPHERAL IV DATA: Not applicable SIGNED BY: Onelia Weiss RDMS May 09, 2023 1:26 PM documented in this encounterOhiohealth Arthur [facility]07-19-2023 History of Present illness Narrative* Donna Felder APRN.CNP - 04/30/2023 5:35 PM EDT This note was created using NoteWriter. Subjective Segundo Quezada is a 42 year old adult. 42 year old female with PMH hypothyroidism, anxiety and depression presents for complaints of illness. 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 Denies vaginal bleeding Recent coitus, denies concerns for STI. The history is provided by the patient. No japanese interpreter was used. UTI This is a new problem. The current episode started more than 2 days ago. The problem occurs every urination. The problem has been gradually worsening. The quality of the pain is described as burning.The pain is at a severity of 6/10. The pain is moderate. There has been no fever. She is Sexually active. There is No history of pyelonephritis. Associated symptoms include frequency and urgency. Pertinent negatives include no chills, no sweats, no nausea, no vomiting, no discharge, no hematuria, no hesitancy, no possible and no flank pain. She has tried nothing for the symptoms. Her past medical history does not include kidney stones, single kidney, urological procedure, recurrent UTIs, urinary stasis or catheterization. PAST MEDICAL HISTORY Diagnosis Date Chronic depressive personality disorder Former smoker 07/17/2021 Gender dysphoria 07/17/2021 Generalized anxiety disorder Hypothyroidism Obesity 07/17/2021 Tobacco use disorder PAST SURGICAL HISTORY Procedure Laterality Date OSTEOTOMY - BODY OF MANDIBLE 07/2021 with cheek augmentation ALLERGIES Dexamethasone, Hydrocodone, and Oxycodone MEDICATIONS traZODone (DESYREL) 50 mg tablet Take 1 tablet by mouth at bedtime as needed. levothyroxine (SYNTHROID) 25 mcg tablet Take 1 tablet by mouth once daily. progesterone micronized (PROMETRIUM) 100 mg capsule Take 1 capsule by mouth daily at bedtime. finasteride (PROPECIA) 1 mg tablet Take 1 tablet by mouth once daily. busPIRone (BUSPAR) 7.5 mg tablet Take 1 tablet by mouth twice daily. fluvoxaMINE (LUVOX) 100 mg tablet take 1 tablet by mouth every morning spironolactone (ALDACTONE) 50 mg tablet take 1 tablet by mouth twice a day estradiol (ESTRACE) 2 mg tablet take 1 tablet by mouth three times a day famotidine (PEPCID) 20 mg tablet take 1 tablet by mouth twice a day if needed ondansetron (ZOFRAN) 4 mg tablet Take 1 tablet by mouth every 8 hours as needed for nausea/vomiting. oxyCODONE IR (ROXICODONE) 5 mg immediate release tablet Take 1 tablet by mouth every 8 hours as needed for pain. acetaminophen (TYLENOL EXTRA STRENGTH) 500 mg tablet Take 2 tablets by mouth every 6 hours as needed for pain MULTIVITAMIN/IRON/FOLIC ACID (DAILY MULTI ORAL) Take 1 tablet by mouth once daily. nitrofurantoin monohydrate and macrocrystal (MACROBID) 100 mg capsule Take 1 capsule by mouth twicedaily for 5 days. phenazopyridine (PYRIDIUM) 200 mg tablet Take 1 tablet by mouth three times daily as needed. FAMILY HISTORY Problem Relation Age of Onset other (hepatitis) Mother other (ulcers) Father No Known Problems Maternal Grandmother Alzheimer's Disease Maternal Grandfather No Known Problems Paternal Grandmother No Known Problems Paternal Grandfather Allergies Daughter Anesthesia Problems No Family History Social History Tobacco Use Smoking status: Former Packs/day: 0.50 Years: 10.00 Total pack years: 5.00 Types: Cigarettes Quit date: 10/20/2016 Years since quittin.5 Smokeless tobacco: Never Vaping Use Vaping Use: Never used Substance Use Topics Alcohol use: No Drug use: No Review of Systems Constitutional: Negative for chills. Eyes: Negative for photophobia, pain, discharge, redness, itching and visual disturbance. Respiratory: Negative for apnea, cough, choking and chest tightness. Cardiovascular: Negative for chest pain, palpitations and leg swelling. Gastrointestinal: Negative for abdominal pain, nausea and vomiting. Genitourinary: Positive for dysuria, frequency and urgency. Negative for flank pain, hematuria and hesitancy. Allergic/Immunologic: Negative for environmental allergies, food allergies and immunocompromised state. Neurological: Negative for dizziness, facial asymmetry and headaches. Hematological: Negative for adenopathy. Does not bruise/bleed easily. Psychiatric/Behavioral: Negative for agitation and behavioral problems. Objective BP 118/80 Pulse 66 Temp 36.2 C (97.2 F) (Tympanic) Resp 16 Wt 93 kg (205 lb) SpO2 96% BMI 33.09 kg/m Physical Exam Vitals and nursing note reviewed. Constitutional: General: She is not in acute distress. Appearance: Normal appearance. She is normal weight. She is not ill-appearing, toxic-appearing or diaphoretic. HENT: Head: Normocephalic and atraumatic. Right Ear: Ear canal and external ear normal. Left Ear: Ear canal and external ear normal. Nose: Nose normal. No congestion or rhinorrhea. Mouth/Throat: Mouth: Mucous membranes are moist. Pharynx: No oropharyngeal exudate or posterior oropharyngeal erythema. Eyes: General: Right eye: No discharge. Left eye: No discharge. Extraocular Movements: Extraocular movements intact. Conjunctiva/sclera: Conjunctivae normal. Pupils: Pupils are equal, round, and reactive to light. Cardiovascular: Rate and Rhythm: Normal rate and regular rhythm. Pulses: Normal pulses. Heart sounds: Normal heart sounds. No murmur heard. No friction rub. Pulmonary: Effort: Pulmonary effort is normal. No respiratory distress. Breath sounds: Normal breath sounds. No stridor. No wheezing, rhonchi or rales. Chest: Chest wall: No tenderness. Abdominal: General: Abdomen is flat. There is no distension. Palpations: Abdomen is soft. There is no mass. Tenderness: There is abdominal tenderness (suprapubic). There is no right CVA tenderness, left CVA tenderness, guarding or rebound. Hernia: No hernia is present. Musculoskeletal: General: No swelling, tenderness, deformity or signs of injury. Normal range of motion. Cervical back: Normal range of motion and neck supple. No rigidity. Right lower leg: No edema. Left lower leg: No edema. Lymphadenopathy: Cervical: No cervical adenopathy. Skin: General: Skin is warm and dry. Capillary Refill: Capillary refill takes less than 2 seconds. Coloration: Skin is not jaundiced or pale. Findings: No bruising, erythema, lesion or rash. Neurological: General: No focal deficit present. Mental Status: She is alert and oriented to person, place, and time. Cranial Nerves: No cranial nerve deficit. Sensory: No sensory deficit. Motor: No weakness. Coordination: Coordination normal. Gait: Gait normal. Psychiatric: Mood and Affect: Mood normal. Behavior: Behavior normal. Thought Content: Thought content normal. Judgment: Judgment normal. Assessment and Plan ASSESSMENT/PLAN: 1. Dysuria - ICD9: 788.1, ICD10: R30.0 acute - UA positive for nitrates - Send urine for culture - Begin treatment with Macrobid 100 mg BID for 5 days - Patient education for prevention given - UA DIP, URINE (POC) - URINE CULTURE Donna Felder APRN.[employer] documented in this encounterOhiohealth Arthur [facility]05-08-2023 History of Present illness Narrative* Jared Schilling MD - 02/17/2023 3:41 PM EDT DISTANCE HEALTH VISIT This Team Access Model visit is a virtual encounter. It required patient- provider interaction for the medical decision making as documented below. I have communicated my name and active licensure. The patient's identity and physical location wereverified at the time of this visit. Either the patient or their legal claims representative has been informed of the risks and benefits of -- and alternatives to -- treatment through a remote evaluation andconsents to proceed with the evaluation remotely. Segundo Quezada is a 42 year old adult seen for [facility] medication consultation about progesterone. Pt goes by shabbir. HISTORY REVIEWED (electronic chart updated): - medical history - medications - allergies She is interested in progesterone in part of her care. She has heard about the effects on figure changes She has seen that several people who are trans who she follows socially mentioned progesterone as pat of their care. She is on a regimen of estradiol 2 mg TID and spironolactone 50 mg BID. REVIEW OF SYSTEMS: All other ROS: negative As noted in HPI PHYSICAL EXAMINATION: VIDEO EXAM: (if done, performed via video enabled technology) GENERAL: alert and appropriate, in no distress and well-hydrated, well nourished SKIN: no rash noted HEAD: normocephalic, no abnormality or lesion noted EYES: no injection and visual acuity is grossly normal EARS: hearing grossly normal NOSE: external nose normal without rhinorrhea OROPHARYNX: moist mucus membranes NECK: Supple RESPIRATORY: breathing non-labored CHEST: equal chest rise with normal respiratory effort ASSESSMENT: Encounter Diagnosis ICD-10-CM 1. Gender dysphoria F64.9 PLAN: We discussed that there is little/no evidence to support the efficacy of progesterone in TNHT. However, some patients have reported anecdotal improvement in breast and/or areolar development, mood, or libido with the use of progestogens. While concerns exist from the Women's Health Initiative (WHI) regarding risks of cardiovascular disease and breast cancer in the setting of medroxyprogesterone use, these concerns likely do not applyin the context of transgender care for several reasons. First, the transgender women may be at lower risk of breast cancer than non- transgender women. Second, this arm of the WHI involved the use of conjugated equine estrogens in combination with medroxyprogesterone in a sample of menopausal women, some of whom were as long as 10 years post-menopausal at the time of hormone initiation. Third, while statistically significant, the clinical significance of the findings in the WHI was subtle at best. The study aimed to evaluate the role of menopausal hormone therapy in the prevention of chronic disease. The actual findings in the conjugated equine estrogen plus medroxyprogesterone group were an excessabsolute risk per 10 000 person-years of 7 more cardiac events, 8 more strokes, 8 more pulmonary emboli, and 8 more invasive breast cancers, with no change in overall mortality. Pt was advised of potential side effects including edema. Shared decision today to start Prometrium 100 mg QHS. FU in 3 months sooner, PRN. She raised the concern for drug-interactions with antihistamines and her Luvox. Rx sent for loratadine 10 mg for allergy Sx. Medical Decision Making: Problems: Low: Stable chronic illness Risk: Moderate: Drug management High: High risk from testing/treatment Medical Decision Making Level: 3 - Low Jared Schilling MD, MPH Director - [facility] [employer] [facility] - Transgender Surgery and Medicine Program [facility] Internal Medicine and Geriatrics He/Him/They/Them documented in this encounterOhiohealth Arthur [facility]05-03-2023 Miscellaneous Notes* Telephone Encounter - Belen Ceja MA - 02/12/2023 1:52 PM EDT 01/13/[address] Schilling. 02/17/[address] Schilling. Patient phones requesting refills as follows: Requested Prescriptions Pending Prescriptions Disp Refills finasteride (PROPECIA) 1 mg tablet 90 tablet 3 Sig: Take 1 tablet by mouth once daily. busPIRone (BUSPAR) 7.5 mg tablet 60 tablet 3 Sig: Take 1 tablet by mouth twice daily. Please review and advise. Belen Ceja MA documented in this encounterOhiohealth Arthur [facility]04-25-2023 Miscellaneous Notes* Telephone Encounter - Belen Ceja MA - 02/04/2023 10:27 AM EDT 01/13/[address] Schilling. 02/17/[address] Schilling. Pharmacy electronically requests the following refill(s) Requested Prescriptions Pending Prescriptions Disp Refills busPIRone (BUSPAR) 7.5 mg tablet [Pharmacy Med Name: BUSPIRONE HCL 7.5 MG TABLET] 60 tablet 0 Sig: Take 1 tablet by mouth twice daily. traZODone (DESYREL) 50 mg tablet [Pharmacy Med Name: TRAZODONE 50 MG TABLET] 30 tablet 0 Sig: Take 1 tablet by mouth at bedtime as needed. Belen Ceja MA documented in this encounterOhiohealth Arthur [facility]04-03-2023 History of Present illness Narrative* Jared Schilling MD - 01/13/2023 4:45 PM EDT DISTANCE HEALTH VISIT This Team Access Model visit is a virtual encounter. It required patient- provider interaction for the medical decision making as documented below. I have communicated my name and active licensure. The patient's identity and physical location wereverified at the time of this visit. Either the patient or their legal claims representative has been informed of the risks and benefits of -- and alternatives to -- treatment through a remote evaluation andconsents to proceed with the evaluation remotely. Segundo Quezada is a 42 year old adult seen for ED follow-up. Pt goes by Shabbir HISTORY REVIEWED (electronic chart updated): - medical history - medications - allergies Last seen by me on 11/21/2022 for gender care (VV). She was seen at an outside ED ([facility]) on 01/06/2023. She had sinus pressure for days and was worsening. Sts she received IVF and was given IV steroids. She was Dx with a viral syndrome and she has been improving. Her concerns today: #anxiety Feels this is ramping up again. Getting intrusive thoughts that interfere with sleep. Sts that the sociopolitical environment for transgender people has messed me up Is taking buspirone 10 mg daily - feels that the effect is less now. She also endorses trouble with sleep - has initial insomnia. REVIEW OF SYSTEMS: All other ROS: negative As noted in HPI PHYSICAL EXAMINATION: VIDEO EXAM: (if done, performed via video enabled technology) GENERAL: alert and appropriate, in no distress and well-hydrated, well nourished SKIN: no rash noted HEAD: normocephalic, no abnormality or lesion noted EYES: no injection and visual acuity is grossly normal EARS: hearing grossly normal NOSE: external nose normal without rhinorrhea OROPHARYNX: moist mucus membranes NECK: Supple RESPIRATORY: breathing non-labored CHEST: equal chest rise with normal respiratory effort ASSESSMENT: Encounter Diagnosis ICD-10-CM 1. Insomnia, unspecified type G47.00 traZODone (DESYREL) 50 mg tablet 2. Anxiety and depression F41.9 busPIRone (BUSPAR) 7.5 mg tablet F32.A PLAN: #insomnia Shared decision to try low dose trazodone for sleep #anxiety Shared decision to increase buspirone to 7.5 mg BID. FU in 4-6 weeks to assess medication efficacy. Medical Decision Making: Problems: Moderate: 1+ chronic illnesses with change Risk: Moderate: Drug management and Moderate risk from testing/treatment Medical Decision Making Level: 4 - Moderate Jared Schilling MD, MPH Director - [facility] [employer] - Transgender Surgery and Medicine Program [facility] Internal Medicine and Geriatrics He/Him/They/Them documented in this encounterOhiohealth Arthur [facility]03-10-2023 Miscellaneous Notes* Telephone Encounter - Estephanie Cornell MA - 12/20/2022 3:32 PM EST Last appt 11/21/22 Next appt None Pharmacy electronically requesting refills as follows: Requested Prescriptions Pending Prescriptions Disp Refills fluvoxaMINE (LUVOX) 100 mg tablet [Pharmacy Med Name: FLUVOXAMINE MALEATE 100 MG TAB] 90 tablet 3 Sig: take 1 tablet by mouth every morning Refused Prescriptions Disp Refills famotidine (PEPCID) 20 mg tablet [Pharmacy Med Name: FAMOTIDINE 20 MG TABLET] 60 tablet 1 Sig: take 1 tablet by mouth twice a day if needed Please review and advise. Estephanie Cornell MA documented in this encounterOhiohealth Arthur [facility]02-24-2023 History of Present illness Narrative* SHONA Meyers - 12/06/2022 6:06 PM EST This note was created using Goodybagriter. Subjective Segundo Quezada is a 42 year old adult. HPI 42-year-old female presents for UTI symptoms. Patient has been having burning, frequency and some intermittent back pain for the past 3 days. She states that she has a history of UTIs in the past. No concern for STD. No blood in the urine. No vomiting or fevers. PAST MEDICAL HISTORY Diagnosis Date Chronic depressive personality disorder Former smoker 07/17/2021 Gender dysphoria 07/17/2021 Generalized anxiety disorder Hypothyroidism Obesity 07/17/2021 Tobacco use disorder PAST SURGICAL HISTORY Procedure Laterality Date OSTEOTOMY - BODY OF MANDIBLE 07/2021 with cheek augmentation ALLERGIES Dexamethasone, Hydrocodone, and Oxycodone MEDICATIONS spironolactone (ALDACTONE) 50 mg tablet take 1 tablet by mouth twice a day estradiol (ESTRACE) 2 mg tablet take 1 tablet by mouth three times a day levothyroxine (SYNTHROID) 25 mcg tablet take 1 tablet by mouth once daily busPIRone (BUSPAR) 10 mg tablet take 1 tablet by mouth once daily famotidine (PEPCID) 20 mg tablet take 1 tablet by mouth twice a day if needed ondansetron (ZOFRAN) 4 mg tablet Take 1 tablet by mouth every 8 hours as needed for nausea/vomiting. oxyCODONE IR (ROXICODONE) 5 mg immediate release tablet Take 1 tablet by mouth every 8 hours as needed for pain. acetaminophen (TYLENOL EXTRA STRENGTH) 500 mg tablet Take 2 tablets by mouth every 6 hours as needed for pain finasteride (PROPECIA,PROSCAR) 1 mg tablet Take 1 tablet by mouth once daily. fluvoxaMINE (LUVOX) 100 mg tablet take 1 capsule by mouth every morning MULTIVITAMIN/IRON/FOLIC ACID (DAILY MULTI ORAL) Take 1 tablet by mouth once daily. pumpkin seed extract-soy germ (AZO BLADDER CONTROL) 300 mg cap Take by mouth. FAMILY HISTORY Problem Relation Age of Onset other (hepatitis) Mother other (ulcers) Father No Known Problems Maternal Grandmother Alzheimer's Disease Maternal Grandfather No Known Problems Paternal Grandmother No Known Problems Paternal Grandfather Allergies Daughter Anesthesia Problems No Family History Social History Tobacco Use Smoking status: Former Packs/day: 0.50 Years: 10.00 Pack years: 5.00 Types: Cigarettes Quit date: 10/20/2016 Years since quittin.1 Smokeless tobacco: Never Vaping Use Vaping Use: Never used Substance Use Topics Alcohol use: No Drug use: No Review of Systems Constitutional: Negative for chills and fever. HENT: Negative for congestion. Respiratory: Negative for shortness of breath. Cardiovascular: Negative for chest pain. Gastrointestinal: Negative for abdominal pain, diarrhea and vomiting. Genitourinary: Positive for dysuria, frequency and urgency. Objective BP 100/68 Pulse 71 Temp 36.6 C (97.8 F) (Temporal) Resp 16 Wt 88 kg (194 lb) SpO2 98% BMI 31.31 kg/m Physical Exam Vitals and nursing note reviewed. Constitutional: General: She is not in acute distress. Appearance: Normal appearance. She is not toxic-appearing. Cardiovascular: Rate and Rhythm: Normal rate and regular rhythm. Pulmonary: Effort: Pulmonary effort is normal. Breath sounds: Normal breath sounds. Abdominal: General: Abdomen is flat. Palpations: Abdomen is soft. Tenderness: There is no abdominal tenderness. There is no right CVA tenderness or left CVA tenderness. Neurological: Mental Status: She is alert. Assessment and Plan ASSESSMENT/PLAN: 1. Burning with urination - ICD9: 788.1, ICD10: R30.0 -UA normal. No nitrates, leuk esterase or blood. - Send urine for culture - Patient education for prevention given - UA DIP, URINE (POC) - URINE CULTURE -Recommend follow-up with PCP. -No antibiotic prescribed at this time his urine is clear. We will await urine culture. -Declines STD testing. Diagnosis and treatment plan were discussed and questions were answered to the patient's satisfaction. Pt acknowledged understanding of concepts and follow up plan. Specific signs and symptoms that would indicate the need for higher level of care were discussed in detail warranting prompt ER evaluation. SHONA Meyers documented in this encounterOhiohealth Arthur [facility]02-23-2023 Miscellaneous Notes* Telephone Encounter - Poppy Desai RN - 12/05/2022 4:16 PM EST MC message with UTI symptoms as stated below. Spoke with Shabbir. Urinary frequency, tenderness, lower back pain, and slight nausea. Urine clear and yellow. Care Advice per urinary guidelines. Pt. declined an appointment to be evaluated at [facility] tomorrow, I explained that with low back pain she should be evaluated and she was agreeable to be evaluated at [facility]. Reason for Disposition Side (flank) or lower back pain present Answer Assessment - Initial Assessment Questions 1. SYMPTOM: Urinary frequency, tenderness, lower back pain 2. ONSET: Friday 3. PAIN: Tender 4. CAUSE: UTI 5. OTHER SYMPTOMS: Denies fever, denies blood in urine Protocols used: Urinary [id number] * Telephone Encounter - Poppy Desai RN - 12/05/2022 4:01 PM EST Triage MC message: As is sadly common for me, (since I was a teenager) I have a bladder infection and it has not passed. Am I able to have something called in for it? Thanks so much for any help, bladder infections arethe absolute worst. documented in this encounterOhiohealth Arthur [facility]02-23-2023 Miscellaneous Notes* Telephone Encounter - Poppy Desai RN - 12/05/2022 4:00 PM EST See telephone encounter sent to triage. Joanne Mckeon documented in this encounterOhiohealth Arthur G.[facility]. [facility]02-21-2023 Miscellaneous Notes* Telephone Encounter - Yina Madsen MA - 12/03/2022 11:13 AM EST Last visit 11/21/22 Due for next appt in Nov 2023 Patient requests via [employer] refills as follows: Requested Prescriptions Pending Prescriptions Disp Refills spironolactone (ALDACTONE) 50 mg tablet [Pharmacy Med Name: SPIRONOLACTONE 50 MG TABLET] 180 tablet1 Sig: take 1 tablet by mouth twice a day estradiol (ESTRACE) 2 mg tablet [Pharmacy Med Name: ESTRADIOL 2 MG TABLET] 270 tablet 1 Sig: take 1 tablet by mouth three times a day Please review and advise. Yina Madsen MA documented in this encounterOhiohealth Arthur [facility]02-09-2023 History of Present illness Narrative* Jared Schilling MD - 11/21/2022 7:10 PM EST DISTANCE HEALTH VISIT This Team Access Model visit is a virtual encounter. It required patient- provider interaction for the medical decision making as documented below. Segundo Quezada is a 42 year old adult seen for [facility] surveillance. HISTORY REVIEWED (electronic chart updated): - medical history - medications - allergies Pt's last VV with me was on 04/22/2022. Her current regimen is estradiol 2 mg TID, spironolactone 50 mg BID and finasteride1 mg daily. She had a septorhinoplasty and gender affirming facial surgery in April 2022. Sts she was very pleased with her outcome. She rebuilt my entire face Sts she was off [facility] for a week or two before surgery, and started medication after surgery was completed. Sts she is interested in voice surgery. Has not yet met with speech therapy. She reports she would like to consider gender affirming genital surgery. Sts that buspirone has helped with her anxiety. Taken a little of the edge off REVIEW OF SYSTEMS: All other ROS: negative As noted in HPI PHYSICAL EXAMINATION: VIDEO EXAM: (if done, performed via video enabled technology) GENERAL: alert and appropriate, in no distress and well-hydrated, well nourished SKIN: no rash noted HEAD: normocephalic, no abnormality or lesion noted EYES: no injection and visual acuity is grossly normal EARS: hearing grossly normal NOSE: external nose normal without rhinorrhea OROPHARYNX: moist mucus membranes NECK: Supple RESPIRATORY: breathing non-labored CHEST: equal chest rise with normal respiratory effort Component Latest Ref Rng & Units 11/20/2022 WBC 3.70 - 11.00 k/uL 8.90 RBC 4.20 - 6.00 m/uL 4.02 (L) Hemoglobin 13.0 - 17.0 g/dL 13.3 Hematocrit 39.0 - 51.0 % 37.1 (L) MCV 80.0 - 100.0 fL 92.3 MCH 26.0 - 34.0 pg 33.1 MCHC 30.5 - 36.0 g/dL 35.8 RDW-CV 11.5 - 15.0 % 12.7 Platelet Count 150 - 400 k/uL 230 MPV 9.0 - 12.7 fL 11.1 Neut% % 63.5 Abs Neut (ANC) 1.45 - 7.50 k/uL 5.65 Lymph% % 28.9 Abs Lymph 1.00 - 4.00 k/uL 2.57 Valley% % 5.4 Abs Valley <0.87 k/uL 0.48 Eosin% % 1.6 Abs Eosin <0.46 k/uL 0.14 Baso% % 0.4 Abs Baso <0.11 k/uL 0.04 Immature Gran % % 0.2 IMMATURE GRANS (ABS) <0.10 k/uL <0.03 NRBC /100 WBC 0.0 Absolute nRBC <0.01 k/uL <0.01 DTYPE Auto Glucose 74 - 99 mg/dL 88 BUN 9 - 24 mg/dL 14 Creatinine 0.73 - 1.22 mg/dL 0.65 (L) Sodium 136 - 144 mmol/L 138 Potassium 3.7 - 5.1 mmol/L 4.0 Chloride 97 - 105 mmol/L 103 CO2 22 - 30 mmol/L 24 Anion Gap 9 - 18 mmol/L 11 Calcium 8.5 - 10.2 mg/dL 9.1 eGFR >=60 mL/min/1.73m 121 Estradiol 17B pg/mL 153 ASSESSMENT: Encounter Diagnosis ICD-10-CM 1. Gender dysphoria F64.9 CBC + DIFF ESTRADIOL-17B BLD TESTOSTERONE TOTAL BASIC METABOLIC PNL PLAN: Encounter Diagnosis ICD-10-CM 1. Gender dysphoria F64.9 CBC + DIFF ESTRADIOL-17B BLD TESTOSTERONE TOTAL BASIC METABOLIC PNL CONSULT TO SPEECH THERAPY 2. Anxiety and depression F41.9 F32.A #Gender dysphoria Doing well on gender affirmation hormonal therapy with estradiol and spironolactone and finasteride No obvious negative side effects Physical changes are as expected on medical therapy Continue current medications and doses Future labs ordered today - CBC (to monitor for anemia), BMP (if on spironolactone), estradiol 17OH, total testosterone FU in 12 months for gender affirmation surveillance care, sooner PRN We reviewed [employer] for Transgender Health (WPATH) surgical criteria for gender affirmation care including: Being on Gender Affirmation Hormonal Treatment (GAHT) for 1 year AND -1 Letter of Recommendation (AMNDO) from a mental health professional (MHP) familiar with the care ofgender dysphoria for top surgery -2 MANDO from MHPs for bottom surgery. I encouraged pt to check with their insurance company on any specific WPATH requirements other thanthese. We discussed potential [facility] at [facility]. Referred to Speech Therapy for vocal assessment/training. #anxiety Improved. Continue buspirone FU in 3 months. Medical Decision Making: Problems: Moderate: 2+ stable chronic illnesses Data: Unique test result(s) reviewed: 3+ Unique test(s) ordered: 3+ Risk: Moderate: Drug management High: High risk from testing/treatment Medical Decision Making Level: 4 - Moderate Jared Schilling MD, MPH Director - [facility] [employer] - Transgender Surgery and Medicine Program [facility] Internal Medicine and Geriatrics He/Him/They/Them documented in this encounterOhiohealth Arthur [facility]01-24-2023 History of Present illness Narrative* Navneet Dunham MD - 11/05/2022 4:15 PM EST Plastic Surgery Note CC: s/p FFS HPI: Segundo is a 41 year old adult s/p Open septorhinoplasty, frontal sinus setback, and contouringof the forehead and supraorbital bar, scalp advancement with lowering of the hairline and brow lifton 05/10/22. She can breathe through both nostrils and feels some swelling still present. She reports some extra tissue/jowling and is not sure if this is related to weight gain or a result of surgery. She reports gaining about 15 pounds since last weighed. Hemoglobin A1C (%) Date Value 04/12/2022 5.4 07/20/2021 5.3 07/23/2019 5.3 HBA1C, [place] (%) Date Value 09/13/2008 5.9 Last 10 Encounter BP Readings: Date: BP: 04/12/2022 118/90 03/25/2022 126/73 11/26/2021 118/76 11/13/2021 111/95 08/13/2021 107/64 08/06/2021 115/66 07/31/2021 99/60 07/17/2021 134/73 07/10/2021 135/76 06/28/2021 115/62 CBC Latest Ref Rng & Units 07/20/2021 07/27/2021 04/12/2022 WBC 3.70 - 11.00 k/uL 8.53 19.85(H) 9.21 RBC 4.20 - 6.00 m/uL 4.08(L) 3.89(L) 4.42 HEMOGLOBIN 13.0 - 17.0 g/dL 13.3 12.1(L) 13.4 HEMOGLOBIN, BUSHRA 14.0 - 18.0 g/dL - - - HEMATOCRIT 39.0 - 51.0 % 37.2(L) 35.8(L) 39.1 MCV 80.0 - 100.0 fL 91.2 92.0 88.5 MCV, BUSHRA 80 - 94 fL - - - MCH 26.0 - 34.0 pg 32.6 31.1 30.3 MCH, BUSHRA 27 - 31 pg - - - MCHC 30.5 - 36.0 g/dL 35.8 33.8 34.3 MCHC, BUSHRA 33 - 37 g/dL - - - RDW, BUSHRA 11.5 - 14.5 % - - - RDW-CV 11.5 - 15.0 % 11.9 12.0 11.9 PLATELETS 150 - 400 k/uL 205 186 194 MPV 9.0 - 12.7 fL 11.0 9.9 9.7 NEUT%, BUSHRA 42.2 - 75.2 % - - - MONO%, BUSHRA 1.7 - 9.3 % - - - EOS%, BUSHRA 0.0 - 6.0 % - - - BASO% % 0.6 - 0.3 BASO%, BUSHRA 0.0 - 2.0 % - - - ABS NEUT (ANC) 1.45 - 7.50 k/uL 5.48 - 6.48 ABS NEUT, BUSHRA 2.0 - 8.1 k/uL - - - ABS LYMP, BUSHRA 1.0 - 5.5 k/uL - - - ABS LYMPH 1.00 - 4.00 k/uL 2.42 - 2.19 ABS MONO <0.87 k/uL 0.52 - 0.45 ABS MONO, BUSHRA 0.1 - 1.0 k/uL - - - ABS EOS, BUSHRA 0.0 - 0.2 k/uL - - - ABS EOSIN <0.46 k/uL 0.04 - 0.04 ABS BASO <0.11 k/uL 0.05 - 0.03 ABS BASO, BUSHRA 0.0 - 0.1 k/uL - - - NRBC /100 WBC - - 0.0 DIFF TYPE - Auto Diff - - CMP Latest Ref Rng & Units 07/10/2021 07/20/2021 04/12/2022 SODIUM 136 - 144 mmol/L 138 138 138 SODIUM, BUSHRA 136 - 145 mmol/L - - - SODIUM, BUSHRA 136 - 145 mmol/L - - - POTASSIUM 3.7 - 5.1 mmol/L 3.9 4.1 3.9 POTASSIUM, BUSHRA 3.5 - 5.1 mmol/L - - - CHLORIDE 97 - 105 mmol/L 103 100 103 CHLORIDE, BUSHRA 98 - 107 mmol/L - - - CO2 22 - 30 mmol/L 23 25 21(L) CO2, BUSHRA 21.0 - 32.0 mmol/L - - - GLUCOSE 74 - 99 mg/dL 87 88 98 GLUCOSE, BUSHRA 70 - 99 mg/dL - - - BUN mg/dL 12 16 20 BUN, BUSHRA 7 - 18 mg/dL - - - CREATININE mg/dL 0.61(L) 0.64(L) 0.60 CREATININE, BUSHRA 0.8 - 1.3 mg/dL - - - EGFR >=60 mL/min/1.73m - - 124 EGFR-ALL OTHER RACES . >60 >60 - EGFR- - >60 >60 - PROTEIN, TOTAL 6.3 - 8.0 g/dL - 7.9 7.5 TOTAL PROTEIN, BUSHRA 6.4 - 8.2 g/dL - - - ALBUMIN 3.9 - 4.9 g/dL - 4.9 4.8 ALBUMIN, BUSHRA 3.4 - 5.0 g/dL - - - CALCIUM, BUSHRA 8.5 - 10.1 mg/dL - - - CALCIUM, TOTAL 8.5 - 10.2 mg/dL 9.3 10.1 9.1 BILIRUBIN, TOTAL 0.2 - 1.3 mg/dL - 0.3 0.3 AST 14 - 40 U/L - 22 16 AST, BUSHRA 15 - 37 U/L - - - ALT 10 - 54 U/L - 25 16 ALT, BUSHRA 30 - 65 U/L - - - ALKALINE PHOSPHATASE 38 - 113 U/L - 57 59 Objective: There were no vitals taken for this visit. PAST MEDICAL HISTORY Diagnosis Date Chronic depressive personality disorder Former smoker 07/17/2021 Gender dysphoria 07/17/2021 Generalized anxiety disorder Hypothyroidism Obesity 07/17/2021 Tobacco use disorder PAST SURGICAL HISTORY Procedure Laterality Date OSTEOTOMY - BODY OF MANDIBLE 07/2021 with cheek augmentation Current Outpatient Medications Medication Sig Dispense Refill famotidine (PEPCID) 20 mg tablet take 1 tablet by mouth twice a day if needed 60 tablet 1 levothyroxine (SYNTHROID) 25 mcg tablet Take 1 tablet by mouth once daily. 90 tablet 0 ondansetron (ZOFRAN) 4 mg tablet Take 1 tablet by mouth every 8 hours as needed for nausea/vomiting. 12 tablet 0 busPIRone (BUSPAR) 10 mg tablet Take 1 tablet by mouth once daily. 30 tablet 5 oxyCODONE IR (ROXICODONE) 5 mg immediate release tablet Take 1 tablet by mouth every 8 hours as needed for pain. 21 tablet 0 docusate sodium (COLACE) 100 mg capsule Take 1 capsule by mouth twice daily as needed for constipation. 20 capsule 0 acetaminophen (TYLENOL EXTRA STRENGTH) 500 mg tablet Take 2 tablets by mouth every 6 hours as needed for pain 30 tablet 0 estradiol (ESTRACE) 2 mg tablet Take 1 tablet by mouth three times daily. 270 tablet 1 finasteride (PROPECIA,PROSCAR) 1 mg tablet Take 1 tablet by mouth once daily. 90 tablet 3 spironolactone (ALDACTONE) 50 mg tablet Take 1 tablet by mouth twice daily. 180 tablet 1 fluvoxaMINE (LUVOX) 100 mg tablet take 1 capsule by mouth every morning 90 tablet 3 MULTIVITAMIN/IRON/FOLIC ACID (DAILY MULTI ORAL) Take 1 tablet by mouth once daily. No current facility-administered medications for this visit. ALLERGIES Allergen Reactions Dexamethasone Swelling Hydrocodone Mental Status Change, Other: See Comments hallucinations ROS: All negative except for: GENERAL: []weight loss []malaise []fevers HEENT: []frequent or significant headaches []changes in hearing []change in vision []nose bleeds []other nasal problems NECK: []lumps []goiter []pain and significant neck swelling RESPIRATORY: []cough []hemoptysis []wheezing []COPD []dyspnea []shortness of breath CARDIOVASCULAR: []chest pain []leg swelling []hypertension []CHF []palpitations GI: []nausea []vomiting []diarrhea MUSCULOSKELETAL: see HPI SKIN: [] skin lesions []rash []itching PSYCH: []sleep disturbance []mood disorder []recent psychosocial stressors HEMATOLOGY/LYMPHOLOGY: []prolonged bleeding []bruising easily []swollen nodes ENDOCRINE: []cold intolerance []heat intolerance []polyuria []polydipsia []goiter PE: Alert, awake in NAD Brows symmetric Nose symmetric Incisions healed Jowls prominent A/P: Post operative state Doing well Discussed that lower face concerns are most likely related to aging and weight gain. Recommend weight loss and we can discuss face lift in future. Photos today PROM filled FU in 6 months (1 year fu). The patient is seen and examined by Dr. Brooks and the following reflects his/her service. Scribedby Bonnie Guo RN I agree with the Chief Complaint, ROS, and Past Histories independently gathered by the clinical technical support internship/resident and the remaining scribed note accurately describes my personal service to the patient. 20 minutes of the total visit were spent face to face with patient. Greater than 50% of the time was spent for counseling and coordination of care, discussing treatment options and recommendations. Navneet Dunham MD November 05, 2022 5:09 PM This note was generated with voice recognition software and may contain errors, including spelling,grammar, syntax and misrecognition of what was dictated, that are not fully corrected. documented in this encounter[facility] Instructions* Patient Instructions* Navneet Dunham MD - 11/05/2022 4:09 PM EST Images from the original note were not included. The Subjective Happiness Scale The SHS is a 4-item scale of global subjective happiness. Two items ask respondents to characterizethemselves using both absolute ratings and ratings relative to peers, whereas the other two items offer brief descriptions of happy and unhappy individuals and ask respondents the extent to which each characterization describes them. Gamal S., & Pallavi, H. S. (1999). A measure of subjective happiness: Preliminary reliability and construct validation. Social Indicators Research, 46, 137-155. For each of the following statements and/or questions, please [place] the point on the scale that you feel is most appropriate in describing you. In general, I consider myself: 1 2 3 4 5 6 7 not a very happy person a very happy person Compared to most of my peers, I consider myself: 1 2 3 4 5 6 7 less happy more happy Some people are generally very happy. They enjoy life regardless of what is going on, getting the most out of everything. To what extent does this characterization describe you? 1 2 3 4 5 6 7 not at all a great deal Some people are generally not very happy. Although they are not depressed, they never seem as happyas they might be. To what extent does this characterization describe you? 1 2 3 4 5 6 7 not at all a great deal Scoring: Compute the mean across responses to all four questions; item #4 is reverse coded. MHQoL Please indicate below which statements best describe your situation TODAY by ticking ONE box in each of the seven subjects. SELF-IMAGE I think very positively about myself [] I think positively about myself [] I think negatively about myself [] I think very negatively about myself [] INDEPENDENCE For example: freedom of choice, financial, co-decision making I am very satisfied with my level of independence [] I am satisfied with my level of independence [] I am dissatisfied with my level of independence [] I am very dissatisfied with my level of independence [] MOOD I do not feel anxious, gloomy, or depressed [] I feel a little anxious, gloomy, or depressed [] I feel anxious, gloomy, or depressed [] I feel very anxious, gloomy, or depressed [] RELATIONSHIPS For example: partner, children, family, friends I am very satisfied with my relationships [] I am satisfied with my relationships [] I am dissatisfied with my relationships [] I am very dissatisfied with my relationships [] DAILY ACTIVITIES For example: work, study, household, leisure activities I am very satisfied with my daily activities [] I am satisfied with my daily activities [] I am dissatisfied with my daily activities [] I am very dissatisfied with my daily activities [] MHQoL ([place]) Copyright [facility] [employer] 2018. All rights reserved. PHYSICAL HEALTH I have no physical health problems [] I have some physical health problems [] I have many physical health problems [] I have a great many physical health problems [] FUTURE I am very optimistic about my future [] I am optimistic about my future [] I am gloomy about my future [] I am very gloomy about my future [] PSYCHOLOGICAL WELL-BEING On the scale below, please indicate with an X how you rate your psychological well-being. 0 represents the worst imaginable psychological well-being, while 10 represents the best imaginable psychological well-being. Worst imaginable psychological well-being Best imaginable psychological well-being 0 1 2 3 4 5 6 7 8 9 10 MHQoL ([place]) Copyright [facility], [facility] [employer] 2018. All rights reserved. Transgender Congruence Scale My outward appearance represents my gender identity. 1 2 3 4 5 Strongly Disagree Somewhat Disagree Neither Agree Nor Disagree Somewhat Agree Strongly Agree I experience a sense of unity between my gender identity and my body. 1 2 3 4 5 Strongly Disagree Somewhat Disagree Neither Agree Nor Disagree Somewhat Agree Strongly Agree My physical appearance adequately expresses my gender identity. 1 2 3 4 5 Strongly Disagree Somewhat Disagree Neither Agree Nor Disagree Somewhat Agree Strongly Agree I am generally comfortable with how others perceive my gender identity when they look at me. 1 2 3 4 5 Strongly Disagree Somewhat Disagree Neither Agree Nor Disagree Somewhat Agree Strongly Agree My physical body represents my gender identity. 1 2 3 4 5 Strongly Disagree Somewhat Disagree Neither Agree Nor Disagree Somewhat Agree Strongly Agree The way my body currently looks does not represent my gender identity. 1 2 3 4 5 Strongly Disagree Somewhat Disagree Neither Agree Nor Disagree Somewhat Agree Strongly Agree I am happy with the way my appearance expresses my gender identity. 1 2 3 4 5 Strongly Disagree Somewhat Disagree Neither Agree Nor Disagree Somewhat Agree Strongly Agree I do not feel that my appearance reflects my gender identity. 1 2 3 4 5 Strongly Disagree Somewhat Disagree Neither Agree Nor Disagree Somewhat Agree Strongly Agree I feel that my mind and body are consistent with one another. 1 2 3 4 5 Strongly Disagree Somewhat Disagree Neither Agree Nor Disagree Somewhat Agree Strongly Agree I am not proud of my gender identity. 1 2 3 4 5 Strongly Disagree Somewhat Disagree Neither Agree Nor Disagree Somewhat Agree Strongly Agree I am happy that I have the gender identity that I do. 1 2 3 4 5 Strongly Disagree Somewhat Disagree Neither Agree Nor Disagree Somewhat Agree Strongly Agree I have accepted my gender identity. 1 2 3 4 5 Strongly Disagree Somewhat Disagree Neither Agree Nor Disagree Somewhat Agree Strongly Agree Facial Feminization Surgery Outcomes Evaluation I like the appearance of my face. 0 1 2 3 4 Not at all Somewhat Moderately Very Much Completely The appearance of my face is feminine. 0 1 2 3 4 Not at all Somewhat Moderately Very Much Completely My friends and loved ones perceive my face as feminine. 0 1 2 3 4 Not at all Somewhat Moderately Very Much Completely My current facial appearance limits my social activities. 0 1 2 3 4 Not at all Somewhat Moderately Very Much Completely My current facial appearance limits my professional activities. 0 1 2 3 4 Not at all Somewhat Moderately Very Much Completely In public I am confident my facial appearance is perceived as feminine. 0 1 2 3 4 Not at all Somewhat Moderately Very Much Completely I would like to alter the appearance of my face. 0 1 2 3 4 Not at all Somewhat Moderately Very Much Completely Facial feminization surgery is/was important to my ability to live as a woman. 0 1 2 3 4 Not at all Somewhat Moderately Very Much Completely Body surgery is/was important to my ability to live as a woman. 0 1 2 3 4 Not at all Somewhat Moderately Very Much Completely FACE-QTM - APPRAISAL OF UPPER EYELIDS For each question, [place] only one answer. With your upper eyelids in mind, in the past week, how much have you been bothered by: Not at all A little Moderately Extremely a. Eyelid skin that rests on your lashes? 1 2 3 4 b. Saggy upper eyelids? 1 2 3 4 c. Droopy upper eyelids? 1 2 3 4 d. How your eyelid folds (creases) look? 1 2 3 4 e. Heavy upper eyelids? 1 2 3 4 f. How tired your upper eyelids make you look? 1 2 3 4 g. How old your upper eyelids make you look? 1 2 [address] [facility], [place], [place], [facility]. All rights reserved. The FACE-Q, authored by Drs. Mark Camacho, Taryn Chao and Jere Dhillon, is the copyright of [facility], [place] (Copyright 2013, [facility] [place]). The FACE-Q has been provided under license from [facility] [place] and must not be copied, distributed or used in any way without the prior written consent of [facility] [place]. Note to Investigators: This scale can be used independently of the other scales. FACE-QTM - SOCIAL FUNCTION For each statement, [place] only one answer. These are statements people might use to describe themselves. With your facial appearance in mind, in the past week, how much would you agree or disagree with each statement: Definitely disagree Somewhat disagree Somewhat agree Definitely agree a. I make a good first impression. 1 2 3 4 b. I feel confident when I meet a new person. 1 2 3 4 c. I am comfortable meeting new people. 1 2 3 4 d. It is easy for me to make new friends. 1 2 3 4 e. I feel confident when I participate in group situations (e.g. meetings). 1 2 3 4 f. I feel confident in new social situations (e.g. parties). 1 2 3 4 g. I am relaxed around people that I don't know well. 1 2 3 4 h. I feel confident when I walk into a room full of people I don't know. 1 2 [address] [facility], [place], [place], [place]. All rights reserved. The FACE-Q, authored by Drs. Mark Camacho, Taryn Chao and Jere Dhillon, is the copyright of [facility] [place] (Copyright 2013, [facility] [place]). The FACE-Q has been provided under license from [facility] [place] and must not be copied, distributed or used in any way without the prior written consent of [facility] [place]. Note to Investigators: This scale can be used independently of the other scales. FACE-QTM - SATISFACTION WITH SKIN For each question, [place] only one answer. With your facial skin (complexion) in mind, in the past week, how satisfied or dissatisfied have you been with: Very Dissatisfied Somewhat Dissatisfied Somewhat Satisfied Very Satisfied a. How your facial skin looks at the end of your day? 1 2 3 4 b. How healthy your facial skin looks? 1 2 3 4 c. How attractive your facial skin makes you look? 1 2 3 4 d. How smooth your facial skin looks? 1 2 3 4 e. How clear your facial skin (complexion) looks? 1 2 3 4 f. How refreshed your facial skin makes you look? 1 2 3 4 g. How hydrated your facial skin looks? 1 2 3 4 h. How your facial skin looks when you first wake up? 1 2 3 4 i. How radiant your facial skin looks? 1 2 3 4 j. How the tone (color) of your facial skin looks? 1 2 3 4 k. How your pores look? 1 2 3 4 l. How even-colored your facial skin looks? 1 2 [address] [facility], [place], [place], [place]. All rights reserved. The FACE-Q, authored by Drs. Mark Camacho, Taryn Chao and Jere Dhillon, is the copyright of [facility] [place] (Copyright 2013, [facility] [place]). The FACE-Q has been provided under license from [facility] [place] and must not be copied, distributed or used in any way without the prior written consent of [facility] [place]. Note to Investigators: This scale can be used independently of the other scales. FACE-QTM - RECOVERY EARLY SYMPTOMS For each question, [place] only one answer. These questions ask about recovery from your surgery or procedure. With your face in mind, in the past 2 days, how much have you been bothered by: Not at all A little Moderately Extremely a. Swelling? 1 2 3 4 b. Tenderness? 1 2 3 4 c. Discomfort? 1 2 3 4 d. Feeling bruised? 1 2 3 4 e. Feeling sore? 1 2 3 4 f. Feeling that your face is tight? 1 2 3 4 g. Pain? 1 2 3 4 h. Numbness (loss of feeling)? 1 2 3 4 i. Stinging? 1 2 3 4 j. Tingling? 1 2 3 4 k. Throbbing? 1 2 3 4 l. Burning? 1 2 3 4 m. Feeling tired? 1 2 3 4 n. Itching? 1 2 3 4 o. Feeling lightheaded? 1 2 3 4 p. Headaches? 1 2 3 4 q. Feeling feverish? 1 2 [address] [facility], [place], [place], [facility]. All rights reserved. The FACE-Q, authored by Drs. Mark Camacho, Taryn Chao and Jere Dhillon, is the copyright of [facility] [place] (Copyright 2013, [facility] [place]). The FACE-Q has been provided under license from [facility] [place] and must not be copied, distributed or used in any way without the prior written consent of [facility] [place]. Note to Investigators: This scale can be used independently of the other scales. SCORING: This checklist of adverse effects can be scored by adding items to obtain the total numberof adverse effects experienced. FACE-QTM - PSYCHOLOGICAL FUNCTION For each statement, [place] only one answer. These are statements people might use to describe themselves. With your facial appearance in mind, in the past week, how much would you agree or disagree with each statement: Definitely disagree Somewhat disagree Somewhat agree Definitely agree a. I like myself. 1 2 3 4 b. I feel positive about myself. 1 2 3 4 c. I feel okay about myself. 1 2 3 4 d. I feel happy. 1 2 3 4 e. I am comfortable with myself. 1 2 3 4 f. I am accepting of myself. 1 2 3 4 g. I feel good about myself. 1 2 3 4 h. I feel confident. 1 2 3 4 i. I feel attractive. 1 2 3 4 j. I feel great about myself. 1 2 [address] [facility], [place], [place], [facility]. All rights reserved. The FACE-Q, authored by Drs. Mark Camacho, Taryn Chao and Jere Dhillon, is the copyright of [facility] [place] (Copyright 2013, [facility] [place]). The FACE-Q has been provided under license from [facility] [place] and must not be copied, distributed or used in any way without the prior written consent of [facility] [place]. Note to Investigators: This scale can be used independently of the other scales. FACE-QTM - SATISFACTION WITH OUTCOME For each statement, [place] only one answer. We would like to know how you feel about your most recent procedure. Please indicate how much you agree or disagree with each statement. Definitely disagree Somewhat disagree Somewhat agree Definitely agree a. I am pleased with the result. b. The result turned out great. 4 c. The result was just as I expected. 1 2 3 4 d. I am surprised at how good I look in the mirror. 2 3 4 e. The result is fantastic. 10 14 3 4 f. The result is miraculous. 4 Copyright 2012 [facility]. All rights reserved. The FACE-Q, authored by Drs. Mark Camacho, Taryn Chao and Jere Dhillon, is the copyright of [facility] [place] (Copyright 2013, [facility] [place]). The FACE-Q has been provided under license from [facility] [place] and must not be copied, distributed or used in any way without the prior written consent of [facility] [place]. Note to Investigators: This scale can be used independently of the other scales. FACE-QTM - SATISFACTION WITH NOSTRILS For each question, [place] only one answer. With your nostrils in mind, in the past week, how satisfied or dissatisfied have you been with: Very Dissatisfied Somewhat Dissatisfied Somewhat Satisfied Very Satisfied a. The size of your nostrils? 1 2 3 4 b. The shape of your nostrils? 1 2 3 4 c. How much of your nostrils show? 1 2 3 4 d. How even (well-matched) your nostrils look? 1 2 3 4 e. How your nostrils look? 2 3 4 Copyright 2012 [facility]. All rights reserved. The FACE-Q, authored by Drs. Mark Camacho, Taryn Chao and Jere Dhillon, is the copyright of [facility] [place] (Copyright 2013, [facility] [place]). The FACE-Q has been provided under license from [facility] [place] and must not be copied, distributed or used in any way without the prior written consent of [facility] [place]. Note to Investigators: This scale can be used independently of the other scales. FACE-QTM - SATISFACTION WITH NOSE For each question, [place] only one answer. With your nose in mind, in the past week, how satisfied or dissatisfied have you been with: Very Dissatisfied Somewhat Dissatisfied Somewhat Satisfied Very Satisfied g. The width of your nose at the bottom (from nostril to nostril)? 1 2 3 4 h. The length of your nose? 1 2 3 4 i. How the bridge of your nose looks (where glasses sit)? 1 2 3 4 j. How well your nose suits your face? 1 2 3 4 k. How straight your nose looks? 1 2 3 4 l. The overall size of your nose? 1 2 3 4 m. The shape of your nose in profile (side view)? 1 2 3 4 n. How your nose looks in photos? 1 2 3 4 o. How the tip of your nose looks? 1 2 3 4 p. How your nose looks from every angle? 1 2 3 [address] [facility], [place], [facility]. All rights reserved. The FACE-Q, authored by Drs. Mark Camacho, Taryn Chao and Jere Dhillon, is the copyright of [facility] [place] (Copyright 2013, [facility] [place]). The FACE-Q has been provided under license from [facility] [place] and must not be copied, distributed or used in any way without the prior written consent of [facility] [place]. Note to Investigators: This scale can be used independently of the other scales. FACE-QTM - SATISFACTION WITH LOWER FACE AND JAWLINE For each question, [place] only one answer. With your lower face in mind (lower cheeks and jawline),in the past week, how satisfied or dissatisfied have you been with: Very Dissatisfied Somewhat Dissatisfied Somewhat Satisfied Very Satisfied a. How prominent your jawline looks? 1 2 3 4 b. How sculpted (well-defined) your jawline looks? 1 2 3 4 c. How your jawline looks in profile (side view)? 1 2 3 4 d. How nice your lower face looks? 1 2 3 4 e. How smooth your lower face looks (i.e. no jowls or folds of fatty skin)? 1 2 3 4 Copyright 2013 [place], [place], [facility]. All rights reserved. The FACE-Q, authored by Drs. Mark Camacho, Taryn Chao and Jere Dhillon, is the copyright of [facility] [place] (Copyright 2013, [facility] [place]). The FACE-Q has been provided under license from [facility] [place] and must not be copied, distributed or used in any way without the prior written consent of [facility] [place]. Note to Investigators: This scale can be used independently of the other scales. . FACE-QTM - APPRAISAL OF THE NECK For each question, [place] only one answer. With your neck in mind, in the past week, how much have you been bothered by: Not at all A little Moderately Extremely a. Having to cover up your neck with clothing (e.g. scarves, clothing with a high neck)? 1 2 3 4 b. How your neck looks compared with other people your age? 1 2 3 4 c. How deep the horizontal lines on your neck are? 1 2 3 4 d. How your neck looks in collared shirts? 1 2 3 4 e. Hanging skin on your neck? 1 2 3 4 f. How your neck looks when you grimace? 1 2 3 4 g. How your neck looks in profile (side view)? 1 2 3 4 h. How wrinkled your neck skin looks? 1 2 3 4 i. How old your neck makes you look? 1 2 3 4 j. Sagging skin on your neck? 1 2 [address] [facility] [place], [place], [facility]. All rights reserved. The FACE-Q, authored by Drs. Mark Camacho, Taryn Chao and Jere Dhillon, is the copyright of [facility] [place] (Copyright 2013, [facility] [place]). The FACE-Q has been provided under license from [facility] [place] and must not be copied, distributed or used in any way without the prior written consent of [facility] [place]. Note to Investigators: This scale can be used independently of the other scales. . FACE-QTM - SATISFACTION WITH LIPS For each question, [place] only one answer. With your lips in mind, in the past week, how satisfied or dissatisfied have you been with: Very Dissatisfied Somewhat Dissatisfied Somewhat Satisfied Very Satisfied a. The shape of your lower lip? 1 2 3 4 b. How well your lips suit your face? 1 2 3 4 c. How nice your lips look when you smile? 1 2 3 4 d. How full your lower lip looks? 1 2 3 4 e. The style of your lips (e.g. pouty, natural)? 1 2 3 4 f. The shape of your upper lip? 1 2 3 4 g. How turned up your upper lip (cupids bow) looks? 1 2 3 4 h. The size of your lips? 1 2 3 4 i. How the outer corners of your lips look when your face is relaxed (still)? 1 2 3 4 j. How full your upper lip looks? 1 2 [address] [facility] [place], [place], [place]. All rights reserved. The FACE-Q, authored by Drs. Mark Camacho, Taryn Chao and Jere Dhillon, is the copyright of [facility] [place] (Copyright 2013, [facility] [place]). The FACE-Q has been provided under license from [facility] [place] and must not be copied, distributed or used in any way without the prior written consent of [facility] [place]. Note to Investigators: This scale can be used independently of the other scales. . FACE-QTM - APPRAISAL OF LOWER EYELIDS For each question, [place] only one answer. With the area under your eyes in mind, in the past week,how much have you been bothered by: Not at all A little Moderately Extremely a. Excess fat under your eyes? 1 2 3 4 b. Excess skin under your eyes? 1 2 3 4 c. Puffiness under your eyes? 1 2 3 4 d. How noticeable the lines under your eyes are? 1 2 3 4 e. Crepey (wrinkled) skin under your eyes? 1 2 3 4 f. How old the area under your eyes makes you look? 1 2 3 4 g. How tired the area under your eyes makes you look? 1 2 3 4 Copyright 2013 [place], [place], [facility]. All rights reserved. The FACE-Q, authored by Drs. Mark Camacho, Taryn Chao and Jere Dhillon, is the copyright of [facility] [place] (Copyright 2013, [facility] [place]). The FACE-Q has been provided under license from [facility] [place] and must not be copied, distributed or used in any way without the prior written consent of [facility] [place]. Note to Investigators: This scale can be used independently of the other scales. . FACE-QTM - APPRAISAL OF LINES: OVERALL For each question, [place] only one answer. With your entire face in mind, in the past week, how much have you been bothered by: Not at all A little Moderately Extremely a. How deep the lines on your face are? 1 2 3 4 b. Lines you see in photos? 1 2 3 4 c. Lines when your face is relaxed (still)? 1 2 3 4 d. Lines when you smile? 1 2 3 4 e. The number of lines on your face? 1 2 3 4 f. How noticeable the lines on your face are? 1 2 3 4 g. Lines when you frown? 1 2 3 4 h. How old the lines on your face make you look? 1 2 3 4 i. Lines you see when you look in the mirror? 1 2 3 4 j. Lines you see under bright lights? 1 2 [address] [facility] [place], [place], [place]. All rights reserved. The FACE-Q, authored by Drs. Mark Camacho, Taryn Chao and Jere Dhillon, is the copyright of [facility] [place] (Copyright 2013, [facility] [place]). The FACE-Q has been provided under license from [facility] [place] and must not be copied, distributed or used in any way without the prior written consent of [facility] [place]. Note to Investigators: This scale can be used independently of the other scales. FACE-QTM - APPRAISAL OF LINES: NASOLABIAL FOLDS For each question, [place] only one answer. With your nasolabial folds in mind (the deep lines that run downward from the sides of your nose), in the past week, how much have you been bothered by: Not at all A little Moderately Extremely a. How your nasolabial folds look compared with other people your age? 1 2 3 4 b. How your nasolabial folds look when you smile? 1 2 3 4 c. How old your nasolabial folds make you look? 1 2 3 4 d. How your nasolabial folds look when your face is relaxed (still)? 1 2 3 4 e. How deep your nasolabial folds are? 1 2 3 4 Copyright 2013 [facility]. All rights reserved. The FACE-Q, authored by Drs. Mark Camacho, Taryn Chao and Jere Dhillon, is the copyright of [facility] [place] (Copyright 2013, [facility] [place]). The FACE-Q has been provided under license from [facility] [place] and must not be copied, distributed or used in any way without the prior written consent of [facility] [place]. Note to Investigators: This scale can be used independently of the other scales. FACE-QTM - APPRAISAL OF LINES: [place] For each question, [place] only one answer. With the deep lines that run downward from the corner ofyour lips to your chin in mind (marionette lines), in the past week, how much have you been bothered by: Not at all A little Moderately Extremely a. How angry your marionette lines make you look? 1 2 3 4 b. How sad your marionette lines make you look? 1 2 3 4 c. How tired your marionette lines make you look? 1 2 3 4 d. How your marionette lines look when your face is relaxed (still)? 1 2 3 4 e. How deep your marionette lines look? 1 2 3 4 f. How old your marionette lines make you look? 1 2 3 4 g. How noticeable your marionette lines are? 1 2 3 4 Copyright 2013 [place], [place], [facility]. All rights reserved. The FACE-Q, authored by Drs. Mark Camacho, Taryn Chao and Jere Dhillon, is the copyright of [facility] [place] (Copyright 2013, [facility] [place]). The FACE-Q has been provided under license from [facility] [place] and must not be copied, distributed or used in any way without the prior written consent of [facility] [place]. Note to Investigators: This scale can be used independently of the other scales. FACE-QTM - APPRAISAL OF LINES: LIPS For each question, [place] only one answer. With the area around your lips in mind, in the past week, how much have you been bothered by: Not at all A little Moderately Extremely a. How the lines around your lips look compared with other people your age? 1 2 3 4 b. How old the lines around your lips make you look? 1 2 3 4 c. How deep the lines around your lips are? 1 2 3 4 d. The number of lines around your lips? 1 2 3 4 e. How noticeable the lines around your lips are? 1 2 3 4 f. How the lines around your lips look when your lips are puckered? 1 2 3 4 Copyright 2013 [facility]. All rights reserved. The FACE-Q, authored by Drs. Mark Camacho, Taryn Chao and Jere Dhillon, is the copyright of [facility] [place] (Copyright 2013, [facility] [place]). The FACE-Q has been provided under license from [facility] [place] and must not be copied, distributed or used in any way without the prior written consent of [facility] [place]. Note to Investigators: This scale can be used independently of the other scales. FACE-QTM - APPRAISAL OF LINES: FOREHEAD For each question, [place] only one answer. With your horizontal forehead lines in mind, in the pastweek, how much have you been bothered by: Not at all A little Moderately Extremely a. Lines on your forehead when you are talking? 1 2 3 4 b. Lines on your forehead when your face is relaxed (still)? 1 2 3 4 c. How noticeable the lines on your forehead are? 1 2 3 4 d. How tired your forehead lines make you look? 1 2 3 4 e. How old your forehead lines make you look? 1 2 3 4 f. How deep the lines on your forehead are? 1 2 3 4 g. The number of lines on your forehead? 1 2 3 4 Copyright 2013 [facility]. All rights reserved. The FACE-Q, authored by Drs. Mark Camacho, Taryn Chao and Jere Dhillon, is the copyright of [facility] [place] (Copyright 2013, [facility] [place]). The FACE-Q has been provided under license from [facility] [place] and must not be copied, distributed or used in any way without the prior written consent of [facility] [place]. Note to Investigators: This scale can be used independently of the other scales. FACE-QTM - APPRAISAL OF LINES: BETWEEN EYEBROWS For each question, [place] only one answer. With the area between your eyebrows in mind, in the pastweek, how much have you been bothered by: Not at all A little Moderately Extremely a. Lines between your eyebrows when your face is relaxed (still)? 1 2 3 4 b. How old the lines between your eyebrows make you look? 1 2 3 4 c. Lines between your eyebrows making you look angry? 1 2 3 4 d. How noticeable the lines between your eyebrows are? 1 2 3 4 e. How deep the lines between your eyebrows are? 1 2 3 4 f. Lines between your eyebrows when you are concentrating? 1 2 3 4 g. Lines between your eyebrows when you are frowning? 1 2 [address] [facility] [place], [place], [facility]. All rights reserved. The FACE-Q, authored by Drs. Mark Camacho, Taryn Chao and Jere Dhillon, is the copyright of [facility] [place] (Copyright 2013, [facility] [place]). The FACE-Q has been provided under license from [facility] [place] and must not be copied, distributed or used in any way without the prior written consent of [facility] [place]. Note to Investigators: This scale can be used independently of the other scales. FACE-QTM - APPRAISAL OF LINES: [place] FE[place] For each question, [place] only one answer. With your [place] feet in mind (the lines at the outer corner of your eyes), in the past week, how much have you been bothered by: Not at all A little Moderately Extremely a. [place] feet lines when your face is relaxed (still)? 1 2 3 4 b. How noticeable your [place] lines are? 1 2 3 4 c. How tired your [place] lines make you look? 1 2 3 4 d. The number of [place] lines you have? 1 2 3 4 e. How old your [place] lines make you look? 1 2 3 4 f. [place] feet lines when you smile? 1 2 3 4 g. [place] feet lines when you squint? 1 2 [address] [facility] [place], [place], [facility]. All rights reserved. The FACE-Q, authored by Drs. Mark Camacho, Taryn Chao and Jere Dhillon, is the copyright of [facility] [place] (Copyright 2013, [facility] [place]). The FACE-Q has been provided under license from [facility] [place] and must not be copied, distributed or used in any way without the prior written consent of [facility] [place]. Note to Investigators: This scale can be used independently of the other scales. FACE-QTM - SATISFACTION WITH FOREHEAD AND EYEBROWS For each question, [place] only one answer. With your forehead and eyebrows in mind, in the past week, how satisfied or dissatisfied have you been with: Very Dissatisfied Somewhat Dissatisfied Somewhat Satisfied Very Satisfied a. The position of your eyebrows? 1 2 3 4 b. How even (well-matched) your eyebrows look? 1 2 3 4 c. The height of your forehead (distance between your eyebrows and hairline)? 1 2 3 4 d. How natural your forehead looks? 1 2 3 4 e. How youthful your forehead looks? 1 2 3 4 f. How smooth your forehead looks? 1 2 [address] [facility] [place], [place], [facility]. All rights reserved. The FACE-Q, authored by Drs. Mark Camacho, Taryn Chao and Jere Dhillon, is the copyright of [facility] [place] (Copyright 2013, [facility] [place]). The FACE-Q has been provided under license from [facility] [place] and must not be copied, distributed or used in any way without the prior written consent of [facility] [place]. Note to Investigators: This scale can be used independently of the other scales. FACE-QTM - EXPECTATIONS For each statement [place] only one answer. These are statements people might use to describe how their life will change after a cosmetic procedure. With your appearance in mind, how much do you disagree or agree with each statement: Definitely Disagree Somewhat Disagree Somewhat Agree Definitely Agree 1. I will look fantastic. 1 2 3 4 2. People will tell me how great I look. 1 2 3 4 3. People close to me will be proud of how I look. 1 2 3 4 4. I will be transformed. 1 2 3 4 5. Good things will happen to me. 1 2 3 4 6. I will feel like I fit in. 1 2 3 4 7. My close relationships will improve. 1 2 3 4 8. New people will want to get to know me. 1 2 [address] [facility] [place], [place], [place]. All rights reserved. The FACE-Q, authored by Drs. Mark Camacho, Taryn Chao and Jere Dhillon, is the copyright of [facility] [place] (Copyright 2013, [facility] [place]). The FACE-Q has been provided under license from [facility] [place] and must not be copied, distributed or used in any way without the prior written consent of [facility] [place]. Note to Investigators: This scale can be used independently of the other scales. FACE-QTM - SATISFACTION WITH EYELASHES For each question, [place] only one answer. With your natural eyelashes (without mascara) in mind, in the past week, how satisfied or dissatisfied have you been with: Very Dissatisfied Somewhat Dissatisfied Somewhat Satisfied Very Satisfied a. How nice your eyelashes look? 1 2 3 4 b. How feminine your eyelashes make your eyes look? 1 2 3 4 c. How dark your eyelashes look? 1 2 3 4 d. How long your eyelashes look? 1 2 3 4 e. How attractive your eyelashes make your eyes look? 1 2 3 4 f. How thick your eyelashes look? 1 2 3 4 g. How full your eyelashes look? 1 2 3 4 Copyright 2013 [facility]. All rights reserved. The FACE-Q, authored by Drs. Mark Camacho, Taryn Chao and Jere Dhillon, is the copyright of [facility] [place] (Copyright 2013, [facility] [place]). The FACE-Q has been provided under license from [facility] [place] and must not be copied, distributed or used in any way without the prior written consent of [facility] [place]. Note to Investigators: This scale can be used independently of the other scales. FACE-QTM - SATISFACTION WITH EYES For each question, [place] only one answer. With your eyes in mind, in the past week, how satisfied or dissatisfied have you been with: Very Dissatisfied Somewhat Dissatisfied Somewhat Satisfied Very Satisfied a. The shape of your eyes? 1 2 3 4 b. How attractive your eyes look? 1 2 3 4 c. How alert (not tired) your eyes look? 1 2 3 4 d. How open your eyes look? 1 2 3 4 e. How bright-eyed you look? 1 2 3 4 f. How nice your eyes look? 1 2 3 4 g. How youthful your eyes look? 1 2 [address] [facility] [place], [place], [facility]. All rights reserved. The FACE-Q, authored by Drs. Mark Camacho, Taryn Chao and Jere Dhillon, is the copyright of [facility] [place] (Copyright 2013, [facility] [place]). The FACE-Q has been provided under license from [facility] [place] and must not be copied, distributed or used in any way without the prior written consent of [facility] [place]. Note to Investigators: This scale can be used independently of the other scales. FACE-QTM - SATISFACTION WITH FACIAL APPEARANCE For each question, [place] only one answer. With your entire face in mind, in the past week, how satisfied or dissatisfied have you been with: Very Dissatisfied Somewhat Dissatisfied Somewhat Satisfied Very Satisfied a. How symmetric your face looks? 1 2 3 4 b. How balanced your face looks? 1 2 3 4 c. How well-proportioned your face looks? 1 2 3 4 d. How your face looks at the end of your day? 1 2 3 4 e. How fresh your face looks? 1 2 3 4 f. How rested your face looks? 1 2 3 4 g. How your profile (side view) looks? 1 2 3 4 h. How your face looks in photos? 1 2 3 4 i. How your face looks when you first wake- up? 1 2 3 4 j. How your face looks under bright lights? 1 2 [address] [facility] [place], [place], [facility]. All rights reserved. The FACE-Q, authored by Drs. Mark Camacho, Taryn Chao and Jere Dhillon, is the copyright of [facility] [place] (Copyright 2013, [facility] [place]). The FACE-Q has been provided under license from [facility] [place] and must not be copied, distributed or used in any way without the prior written consent of [facility] [place]. Note to Investigators: This scale can be used independently of the other scales. FACE-QTM - SATISFACTION WITH DECISION For each statement, [place] only one answer. We would like to know how you feel about your decision to have your most recent procedure. Please indicate how much you agree or disagree with each statement. Definitely Disagree Somewhat Disagree Somewhat Agree Definitely Agree a. It was worth the time and effort. 1 2 3 4 b. It was money well spent. 1 2 3 4 c. It was just what I wanted. 1 2 3 4 d. It was just what I needed. 1 2 3 4 e. It made me look how I want to look. 1 2 3 4 f. It changed my life for the better. 1 2 [address] [facility] [place], [place], [facility]. All rights reserved. The FACE-Q, authored by Drs. Mark Camacho, Taryn Chao and Jere Dhillon, is the copyright of [facility] [place] (Copyright 2013, [facility] [place]). The FACE-Q has been provided under license from [facility] [place] and must not be copied, distributed or used in any way without the prior written consent of [facility] [place]. Note to Investigators: This scale can be used independently of the other scales. FACE-QTM - EARLY LIFE IMPACT OF TREATMENT For each question, [place] only one answer. These questions ask about recovery from your surgery or procedure. With your most recent facial surgery or procedure in mind, in the past 2 days, how often have you: Not at all Some of the time Most of the time a. [place] regret about the surgery or procedure? 1 2 3 b. [place] more anxious than usual? 1 2 3 c. Had trouble sleeping? 1 2 3 d. Wondered if the surgery or procedure was worthwhile? 1 2 3 e. [place] more tired than usual? 1 2 3 f. Avoided certain head movements (e.g. bending your head down)? 1 2 3 g. Not done your usual day-to-day activities (e.g. going to work, running errands)? 1 2 3 h. Avoided certain facial movements (e.g. laughing, squinting)? 1 2 3 i. Had difficulty drinking? 1 2 3 j. Had difficulty eating? 1 2 3 k. Avoided social situations? 1 2 3 l. Avoided intimacy (e.g. kissing or hugging)? [address] [facility] [place], [place], [place]. All rights reserved. The FACE-Q, authored by Drs. Mark Camacho, Taryn Chao and Jere Dhillon, is the copyright of [facility] [place] (Copyright 2013, [facility] [place]). The FACE-Q has been provided under license from [facility] [place] and must not be copied, distributed or used in any way without the prior written consent of [facility] [place]. Note to Investigators: This scale can be used independently of the other scales. FACE-QTM - SATISFACTION WITH CHIN For each question, [place] only one answer. With your chin in mind, in the past week, how satisfied or dissatisfied have you been with: Very Dissatisfied Somewhat Dissatisfied Somewhat Satisfied Very Satisfied a. The style of your chin (e.g. masculine or feminine)? 1 2 3 4 b. The size of your chin? 1 2 3 4 c. The width of your chin? 1 2 3 4 d. How well your chin suits your face? 1 2 3 4 e. How sculpted your chin looks (e.g. well defined)? 1 2 3 4 f. The shape of your chin? 1 2 3 4 g. How your chin looks in profile (side view)? 1 2 3 4 h. How your chin looks in photos? 1 2 3 4 i. How your chin projects compared to the rest of your face? 1 2 3 4 j. How your chin looks from every angle? 1 2 [address] [facility] [place], [place], [facility]. All rights reserved. The FACE-Q, authored by Drs. Mark Camacho, Taryn Chao and Jere Dhillon, is the copyright of [facility] [place] (Copyright 2013, [facility] [place]). The FACE-Q has been provided under license from [facility] [place] and must not be copied, distributed or used in any way without the prior written consent of [facility] [place]. Note to Investigators: This scale can be used independently of the other scales. FACE-QTM - SATISFACTION WITH CHEEKS For each question, [place] only one answer. With your cheeks in mind (the side of your face below your cheekbones), in the past week, how satisfied or dissatisfied have you been with: Very Dissatisfied Somewhat Dissatisfied Somewhat Satisfied Very Satisfied a. How symmetric (similar) your cheeks look? 1 2 3 4 b. How smooth your cheeks look? 1 2 3 4 c. How attractive your cheeks look? 1 2 3 4 d. The contour (outline) of your cheeks? 1 2 3 4 e. The youthful fullness of your cheeks? 1 2 [address] [facility], [place], [place], [facility]. All rights reserved. The FACE-Q, authored by Drs. Mark Camacho, Taryn Chao and Jere Dhillon, is the copyright of [facility], [place] (Copyright 2013, [facility], [place]). The FACE-Q has been provided under license from [facility] [place] and must not be copied, distributed or used in any way without the prior written consent of [facility] [place]. Note to Investigators: This scale can be used independently of the other scales. FACE-QTM - APPEARANCE-RELATED PSYCHOSOCIAL DISTRESS For each statement [place] only one answer. These are statements people might use to describe themselves. With your appearance in mind, how much do you disagree or agree with each statement: Definitely Disagree Somewhat Disagree Somewhat Agree Definitely Agree a. I feel unhappy about how I look. 1 2 3 4 b. I feel stressed about how I look. 1 2 3 4 c. I feel down about how I look. 1 2 3 4 d. I feel anxious when people look at me. 1 2 3 4 e. I worry that I don't look normal. 1 2 3 4 f. I worry that I am ugly. 1 2 3 4 g. I tend to avoid being around people. 1 2 3 4 h. I have little interest in doing things. 1 2 3 4 Copyright 2013 [facility]. All rights reserved. The FACE-Q, authored by Drs. Mark Camacho, Taryn Chao and Jere Dhillon, is the copyright of [facility] [place] (Copyright 2013, [facility] [place]). The FACE-Q has been provided under license from [facility] [place] and must not be copied, distributed or used in any way without the prior written consent of [facility] [place]. Note to Investigators: This scale can be used independently of the other scales. FACE-QTM - APPRAISAL OF AREA UNDER CHIN For each question, [place] only one answer. With the area under your chin in mind, in the past week,how much have you been bothered by: Not at all A little Moderately Extremely a. Fullness under your chin (e.g. double chin)? 1 2 3 4 b. Lack of contour (outline) under your chin? 1 2 3 4 c. Sagging of the skin and fat under your chin? 1 2 3 4 d. Loose skin and fat under your chin? 1 2 3 4 e. How the area under your chin looks in profile (side view)? 1 2 [address] [facility], [place], [place], [facility]. All rights reserved. The FACE-Q, authored by Drs. Mark Camacho, Taryn Chao and Jere Dhillon, is the copyright of [facility] [place] (Copyright 2013, [facility] [place]). The FACE-Q has been provided under license from [facility] [place] and must not be copied, distributed or used in any way without the prior written consent of [facility] [place]. Note to Investigators: This scale can be used independently of the other scales. . FACE-QTM - SATISFACTION WITH CHEEKBONES For each question, [place] only one answer. With your cheekbones in mind, in the past week, how satisfied or dissatisfied have you been with: Very Dissatisfied Somewhat Dissatisfied Somewhat Satisfied Very Satisfied a. How symmetric (similar) your cheekbones look? 1 2 3 4 b. How high your cheekbones look? 1 2 3 4 c. How your cheekbones look in photos? 1 2 3 4 d. The shape of your cheekbones? 1 2 3 4 e. The contour (outline) of your cheekbones? 1 2 3 4 f. How sculpted your cheekbones look? 1 2 3 4 g. How your cheekbones look from different angles? 1 2 3 4 h. How attractive your cheekbones look? 1 2 3 4 i. How prominent your cheekbones look? 1 2 3 4 j. How well-defined your cheekbones look? 1 2 [address] [facility], [place], [place], [place]. All rights reserved. The FACE-Q, authored by Drs. Mark Camacho, Taryn Chao and Jere Dhillon, is the copyright of [facility] [place] (Copyright 2013, [facility] [place]). The FACE-Q has been provided under license from [facility] [place] and must not be copied, distributed or used in any way without the prior written consent of [facility] [place]. Note to Investigators: This scale can be used independently of the other scales. FACE-QTM - PATIENT-PERCEIVED AGE VISUAL ANALOGUE SCALE We would like to know how old you think you look. How many years younger or older do you think you look compared with your actual age? Please [place] one number below: -15 -14 -13 -12 -11 -10 -9 -8 -7 -6 -5 -4 -3 -2 -1 0 +1 +2 +3 +4 +5 +6 +7 +8 +9 +10 +11 +12 +13 +14+15 I look 15 years older I look my age I look 15 years younger Copyright 2013 [place], [place], [facility]. All rights reserved. The FACE-Q, authored by Drs. Mark Camacho, Taryn Chao and Jere Dhillon, is the copyright of [facility] [place] (Copyright 2013, [facility] [place]). The FACE-Q has been provided under license from [facility] [place] and must not be copied, distributed or used in any way without the prior written consent of [facility] [place]. Note to Investigators: This scale can be used independently of the other scales. FACE-QTM - AGING APPRAISAL For each statement, [place] only one answer. These statements ask about how you look right now. We would like to know how you feel about the age your face looks. Please indicate how much you agree or disagree with each statement. Definitely disagree Somewhat disagree Somewhat agree Definitely agree a. I look so old that I don't recognize myself. 1 2 3 4 b. When I look in the mirror, I don't look like myself. 1 2 3 4 c. I am bothered by how old I look. 1 2 3 4 d. I look older than I want to look. 1 2 3 4 e. I am worried by how old I am starting to look. 1 2 3 4 f. In recent photos, I look older than I want to. 1 2 3 4 g. When I see my reflection, I am reminded of how old I look. 1 2 [address] [facility], [place], [place], [facility]. All rights reserved. The FACE-Q, authored by Drs. Mark Camacho, Taryn Chao and Jere Dhillon, is the copyright of [facility] [place] (Copyright 2013, [facility] [place]). The FACE-Q has been provided under license from [facility] [place] and must not be copied, distributed or used in any way without the prior written consent of [facility] [place]. Note to Investigators: This scale can be used independently of the other scales. . FACE-QTM - ADVERSE EFFECTS: SKIN For each question, [place] only one answer. These questions ask about problems you may be experiencing. With your facial skin (complexion) in mind, in the past week, how much have you been bothered by: Not at all A little Moderately Extremely a. Redness? 1 2 3 4 b. Uneven skin tone (darker and marketing forecaster areas)? 1 2 3 4 c. Skin sensitivity (e.g. to sunlight, skin products)? 1 2 3 4 d. Parts of your face looking blotchy? 1 2 3 4 e. Parts of your face not looking smooth? 1 2 3 4 f. Parts of your face not feeling smooth to the touch? 1 2 3 4 g. Tightness? 1 2 3 4 h. Itching? 1 2 3 4 i. Parts of your face looking scarred? 1 2 3 4 j. Burning? 1 2 [address] [facility], [place], [place], [place]. All rights reserved. The FACE-Q, authored by Drs. Mark Camacho, Taryn Chao and Jere Dhillon, is the copyright of [facility] [place] (Copyright 2013, [facility] [place]). The FACE-Q has been provided under license from [facility] [place] and must not be copied, distributed or used in any way without the prior written consent of [facility] [place]. Note to Investigators: This scale can be used independently of the other scales. SCORING: This checklist of adverse effects can be scored by adding items to obtain the total numberof adverse effects experienced. FACE-QTM - ADVERSE EFFECTS: LIPS For each question, [place] only one answer. These questions ask about problems you may be experiencing. With your lips in mind, in the past week, how much have you been bothered by: Not at all A little Moderately Extremely a. Your lips not feeling smooth (lumps, bumps)? 1 2 3 4 b. Your lips looking asymmetric (uneven)? 1 2 3 4 c. Your lips not looking smooth (lumps, bumps)? 1 2 3 4 d. Swelling? 1 2 3 4 e. Your lips feeling unnatural? 1 2 3 4 f. Numbness? 1 2 3 4 g. Difficulty moving your lips (e.g. laughing, smiling)? 1 2 3 4 h. Your lips feeling too big? 1 2 3 4 Copyright 2013 [facility]. All rights reserved. The FACE-Q, authored by Drs. Mark Camacho, Taryn Chao and Jere Dhillon, is the copyright of [facility] [place] (Copyright 2013, [facility] [place]). The FACE-Q has been provided under license from [facility] [place] and must not be copied, distributed or used in any way without the prior written consent of [facility] [place]. Note to Investigators: This scale can be used independently of the other scales. . SCORING: This checklist of adverse effects can be scored by adding items to obtain the total numberof adverse effects experienced. FACE-QT - ADVERSE EFFECTS: NOSE For each question [place] only one answer. These questions ask about problems you may be experiencing. With your nose in mind, in the past week, how much have you been bothered by: Not at all A little Moderately Extremely a. The skin of your nose looking thick or swollen? 1 2 3 4 b. Tenderness (e.g. when wearing sunglasses)? 1 2 3 4 c. Difficulty breathing through your nose? 1 2 3 4 d. Unnatural appearing bumps or hollows on your nose? 1 2 [address] [facility] [place], [place], [facility]. All rights reserved. The FACE-Q, authored by Drs. Mark Camacho, Taryn Chao and Jere Dhillon, is the copyright of [facility] [place] (Copyright 2013, [facility] [place]). The FACE-Q has been provided under license from [facility] [place] and must not be copied, distributed or used in any way without the prior written consent of [facility] [place]. Note to Investigators: This scale can be used independently of the other scales. SCORING: This checklist of adverse effects can be scored by adding items to obtain the total numberof adverse effects experienced. FACE-QTM - ADVERSE EFFECTS: FOREHEAD, EYEBROWS AND SCALP For each question, [place] only one answer. These questions ask about problems you may be experiencing. With your forehead and eyebrows in mind, in the past week, how much have you been bothered by: Not at all A little Moderately Extremely a. Forehead or scalp pain? 1 2 3 4 b. Your forehead or scalp tingling? 1 2 3 4 c. Your forehead or scalp feeling numb? 1 2 3 4 d. Your forehead or scalp feeling unnatural? 1 2 3 4 e. Forehead or scalp sensitivity (e.g. when styling your hair)? 1 2 3 4 f. Difficulty showing expression in your forehead? 1 2 3 4 g. Difficulty moving your eyebrows to show expression? 1 2 3 4 h. Your eyebrows looking uneven (one higher than the other)? 1 2 3 4 i. Your eyebrows looking too high? 1 2 3 4 j. The position of your hairline (too high or too low)? 1 2 3 4 k. How your forehead or scalp scars look (obvious, noticeable)? 1 2 3 4 l. How your forehead or scalp scars feel (sore, tender, itchy)? 1 2 3 [address] [facility], [place], [place], [place]. All rights reserved. The FACE-Q, authored by Drs. Mark Camacho, Taryn Chao and Jere Dhillon, is the copyright of [facility] [place] (Copyright 2013, [facility] [place]). The FACE-Q has been provided under license from [facility] [place] and must not be copied, distributed or used in any way without the prior written consent of [facility] [place]. Note to Investigators: This scale can be used independently of the other scales. SCORING: This checklist of adverse effects can be scored by adding items to obtain the total numberof adverse effects experienced. FACE-QTM - ADVERSE EFFECTS: EYES For each question, [place] only one answer. These questions ask about problems you may be experiencing. With your eyes in mind, in the past week, how much have you been bothered by: Not at all A little Moderately Extremely a. How your eyelid scars look (obvious, noticeable, uneven)? 1 2 3 4 b. Dry eyes? 1 2 3 4 c. Eye irritation (e.g. redness, itching)? 1 2 3 4 d. Excessive tearing? 1 2 3 4 e. Your eyes looking hollowed out? 1 2 3 4 f. Difficulty closing your eyes? 1 2 3 4 Copyright 2013 [facility] [place], [facility]. All rights reserved. The FACE-Q, authored by Drs. Mark Camacho, Taryn Chao and Jere Dhillon, is the copyright of [facility] [place] (Copyright 2013, [facility] [place]). The FACE-Q has been provided under license from [facility] [place] and must not be copied, distributed or used in any way without the prior written consent of [facility] [place]. Note to Investigators: This scale can be used independently of the other scales. SCORING: This checklist of adverse effects can be scored by adding items to obtain the total numberof adverse effects experienced. FACE-QTM - ADVERSE EFFECTS: CHEEKS, LOWER FACE AND NECK For each question, [place] only one answer. These questions ask about problems you may be experiencing. With your cheeks, lower face and neck in mind, in the past week, how much have you been botheredby: Not at all A little A lot a. Parts of your face feeling numb? 1 2 3 b. Tightness? 1 2 3 c. Parts of your face not looking smooth (e.g. bumpy)? 1 2 3 d. Parts of your face feeling sensitive to the touch? 1 2 3 e. Tingling? 1 2 3 f. How your scars feel (sore, tender, itchy)? 1 2 3 g. Discomfort? 1 2 3 h. Itching? 1 2 3 i. How your scars look (obvious, noticeable)? 1 2 3 j. Pulling? 1 2 3 k. Swelling? 1 2 3 l. Parts of your face feeling hard (too firm)? 1 2 3 m. Difficulty with facial expressions (e.g. smiling)? 1 2 3 n. Bruising? 1 2 3 o. Difficulty with certain facial movements (e.g. whistling, drinking)? [address] [facility] [place], [place], [place]. All rights reserved. The FACE-Q, authored by Drs. Mark Camacho, Taryn Chao and Jere Dhillon, is the copyright of [facility] [place] (Copyright 2013, [facility] [place]). The FACE-Q has been provided under license from [facility] [place] and must not be copied, distributed or used in any way without the prior written consent of [facility] [place]. Note to Investigators: This scale can be used independently of the other scales. SCORING: This checklist of adverse effects can be scored by adding items to obtain the total numberof adverse effects experienced. [facility] History of Present illness Narrative* [facility] - 11/05/2022 10:26 AM EST DATE OF PHOTOS: 11/06/2022 Body Part: Full Face [facility] November 05, 2022 10:26 AM documented in this [facility] Miscellaneous Notes* Telephone Encounter - Maia Peraza LPN - 10/21/2022 11:09 AM EST Last VV: 04/22/22 VV: 11/04/22 Pharmacy calls in requesting the following refill(s): Requested Prescriptions Pending Prescriptions Disp Refills famotidine (PEPCID) 20 mg tablet [Pharmacy Med Name: FAMOTIDINE 20 MG TABLET] 60 tablet 1 Sig: take 1 tablet by mouth twice a day if needed documented in this [facility]11-17-2022 Miscellaneous Notes* Telephone Encounter - Jared Schilling MD - 08/29/2022 12:58 PM EST I will fill Rx as requested. The patient is overdue for a visit. Please remind the patient to set up a medication surveillance visit. Thank you! * Telephone Encounter - Yina Madsen MA - 08/29/2022 11:07 AM EST Last visit 04/22/22. Pharmacy electronically requesting refills as follows: Requested Prescriptions Pending Prescriptions Disp Refills levothyroxine (SYNTHROID) 25 mcg tablet [Pharmacy Med Name: LEVOTHYROXINE 25 MCG TABLET] 90 tablet 0 Sig: Take 1 tablet by mouth once daily. Please review and advise. Yina Madsen MA documented in this [facility] Miscellaneous Notes* Telephone Encounter - WENDY Montez - 08/28/2022 10:30 AM EST Last appointment within department: 04/22/2022 ([facility]) Next appointment with department: Visit date not found Patient requests via Mog[employer] refill as follows: Requested Prescriptions Pending Prescriptions Disp Refills famotidine (PEPCID) 20 mg tablet [Pharmacy Med Name: FAMOTIDINE 20 MG TABLET] 60 tablet 1 Sig: take 1 tablet by mouth twice a day if needed Please review and advise. WENDY Montez documented in this [facility]09-27-2022 History of Present illness Narrative* Naomi Clemens - 07/09/2022 4:06 PM EDT DATE OF PHOTOS: 07/09/2022 Body Part: Full Face and Oral Naomi Clemens July 09, 2022 4:06 PM documented in this [facility]09-27-2022 History of Present illness Narrative* Navneet Dunham MD - 07/09/2022 2:15 PM EDT Plastic Surgery Note CC: post op HPI: Segundo is a 41 year old adult s/p Open septorhinoplasty, frontal sinus setback, and contouringof the forehead and supraorbital bar, scalp advancement with lowering of the hairline and brow lifton 05/10/22. She can breathe through both nostrils. She is doing well and happy with results. Post-op time: 2 months Hemoglobin A1C (%) Date Value 04/12/2022 5.4 07/20/2021 5.3 07/23/2019 5.3 HBA1C, [place] (%) Date Value 09/13/2008 5.9 Last 10 Encounter BP Readings: Date: BP: 04/12/2022 118/90 03/25/2022 126/73 11/26/2021 118/76 11/13/2021 111/95 08/13/2021 107/64 08/06/2021 115/66 07/31/2021 99/60 07/17/2021 134/73 07/10/2021 135/76 06/28/2021 115/62 CBC Latest Ref Rng & Units 07/20/2021 07/27/2021 04/12/2022 WBC 3.70 - 11.00 k/uL 8.53 19.85(H) 9.21 RBC 4.20 - 6.00 m/uL 4.08(L) 3.89(L) 4.42 HEMOGLOBIN 13.0 - 17.0 g/dL 13.3 12.1(L) 13.4 HEMOGLOBIN, BUSHRA 14.0 - 18.0 g/dL - - - HEMATOCRIT 39.0 - 51.0 % 37.2(L) 35.8(L) 39.1 MCV 80.0 - 100.0 fL 91.2 92.0 88.5 MCV, BUSHRA 80 - 94 fL - - - MCH 26.0 - 34.0 pg 32.6 31.1 30.3 MCH, BUSHRA 27 - 31 pg - - - MCHC 30.5 - 36.0 g/dL 35.8 33.8 34.3 MCHC, BUSHRA 33 - 37 g/dL - - - RDW, BUSHRA 11.5 - 14.5 % - - - RDW-CV 11.5 - 15.0 % 11.9 12.0 11.9 PLATELETS 150 - 400 k/uL 205 186 194 MPV 9.0 - 12.7 fL 11.0 9.9 9.7 NEUT%, BUSHRA 42.2 - 75.2 % - - - MONO%, BUSHRA 1.7 - 9.3 % - - - EOS%, BUSHRA 0.0 - 6.0 % - - - BASO% % 0.6 - 0.3 BASO%, BUSHRA 0.0 - 2.0 % - - - ABS NEUT (ANC) 1.45 - 7.50 k/uL 5.48 - 6.48 ABS NEUT, BUSHRA 2.0 - 8.1 k/uL - - - ABS LYMP, BUSHRA 1.0 - 5.5 k/uL - - - ABS LYMPH 1.00 - 4.00 k/uL 2.42 - 2.19 ABS MONO <0.87 k/uL 0.52 - 0.45 ABS MONO, BUSHRA 0.1 - 1.0 k/uL - - - ABS EOS, BUSHRA 0.0 - 0.2 k/uL - - - ABS EOSIN <0.46 k/uL 0.04 - 0.04 ABS BASO <0.11 k/uL 0.05 - 0.03 ABS BASO, BUSHRA 0.0 - 0.1 k/uL - - - NRBC /100 WBC - - 0.0 DIFF TYPE - Auto Diff - - CMP Latest Ref Rng & Units 07/10/2021 07/20/2021 04/12/2022 SODIUM 136 - 144 mmol/L 138 138 138 SODIUM, BUSHRA 136 - 145 mmol/L - - - SODIUM, BUSRHA 136 - 145 mmol/L - - - POTASSIUM 3.7 - 5.1 mmol/L 3.9 4.1 3.9 POTASSIUM, BUSHRA 3.5 - 5.1 mmol/L - - - CHLORIDE 97 - 105 mmol/L 103 100 103 CHLORIDE, BUSHRA 98 - 107 mmol/L - - - CO2 22 - 30 mmol/L 23 25 21(L) CO2, BUSHRA 21.0 - 32.0 mmol/L - - - GLUCOSE 74 - 99 mg/dL 87 88 98 GLUCOSE, BUSHRA 70 - 99 mg/dL - - - BUN mg/dL 12 16 20 BUN, BUSHRA 7 - 18 mg/dL - - - CREATININE mg/dL 0.61(L) 0.64(L) 0.60 CREATININE, BUSHRA 0.8 - 1.3 mg/dL - - - EGFR >=60 mL/min/1.73m - - 124 EGFR-ALL OTHER RACES . >60 >60 - EGFR- - >60 >60 - PROTEIN, TOTAL 6.3 - 8.0 g/dL - 7.9 7.5 TOTAL PROTEIN, BUSHRA 6.4 - 8.2 g/dL - - - ALBUMIN 3.9 - 4.9 g/dL - 4.9 4.8 ALBUMIN, BUSHRA 3.4 - 5.0 g/dL - - - CALCIUM, BUSHRA 8.5 - 10.1 mg/dL - - - CALCIUM, TOTAL 8.5 - 10.2 mg/dL 9.3 10.1 9.1 BILIRUBIN, TOTAL 0.2 - 1.3 mg/dL - 0.3 0.3 AST 14 - 40 U/L - 22 16 AST, BUSHRA 15 - 37 U/L - - - ALT 10 - 54 U/L - 25 16 ALT, BUSHRA 30 - 65 U/L - - - ALKALINE PHOSPHATASE 38 - 113 U/L - 57 59 Objective: There were no vitals taken for this visit. 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 90 tablet 0 ondansetron (ZOFRAN) 4 mg tablet Take 1 tablet by mouth every 8 hours as needed for nausea/vomiting. 12 tablet 0 busPIRone (BUSPAR) 10 mg tablet Take 1 tablet by mouth once daily. 30 tablet 5 oxyCODONE IR (ROXICODONE) 5 mg immediate release tablet Take 1 tablet by mouth every 8 hours as needed for pain. 21 tablet 0 docusate sodium (COLACE) 100 mg capsule Take 1 capsule by mouth twice daily as needed for constipation. 20 capsule 0 acetaminophen (TYLENOL EXTRA STRENGTH) 500 mg tablet Take 2 tablets by mouth every 6 hours as needed for pain 30 tablet 0 famotidine (PEPCID) 20 mg tablet Take 1 tablet by mouth twice daily as needed. 60 tablet 1 estradiol (ESTRACE) 2 mg tablet Take 1 tablet by mouth three times daily. 270 tablet 1 finasteride (PROPECIA,PROSCAR) 1 mg tablet Take 1 tablet by mouth once daily. 90 tablet 3 spironolactone (ALDACTONE) 50 mg tablet Take 1 tablet by mouth twice daily. 180 tablet 1 fluvoxaMINE (LUVOX) 100 mg tablet take 1 capsule by mouth every morning 90 tablet 3 MULTIVITAMIN/IRON/FOLIC ACID (DAILY MULTI ORAL) Take 1 tablet by mouth once daily. No current facility-administered medications for this visit. ALLERGIES Allergen Reactions Dexamethasone Swelling Hydrocodone Mental Status Change, Other: See Comments hallucinations ROS: All negative except for: GENERAL: []weight loss []malaise []fevers HEENT: []frequent or significant headaches []changes in hearing []change in vision []nose bleeds []other nasal problems NECK: []lumps []goiter []pain and significant neck swelling RESPIRATORY: []cough []hemoptysis []wheezing []COPD []dyspnea []shortness of breath CARDIOVASCULAR: []chest pain []leg swelling []hypertension []CHF []palpitations GI: []nausea []vomiting []diarrhea MUSCULOSKELETAL: see HPI SKIN: [] skin lesions []rash []itching PSYCH: []sleep disturbance []mood disorder []recent psychosocial stressors HEMATOLOGY/LYMPHOLOGY: []prolonged bleeding []bruising easily []swollen nodes ENDOCRINE: []cold intolerance []heat intolerance []polyuria []polydipsia []goiter PE: Alert, awake in NAD Scar of forehead erythematous with mild tendency to hypertrophy Swelling of forehead Brows symmetric Nos symmetric. Incisions healed Swelling subsiding A/P: Post operative state Doing well -Apply sunscreen to healed incision -Begin scar massage -Continue taping for 4 more weeks -Follow up in 2 months The patient is seen and examined by Dr. Brooks and the following reflects his/her service. Maraibedby Bonnie Guo RN I agree with the Chief Complaint, ROS, and Past Histories independently gathered by the clinical technical support internship/resident and the remaining scribed note accurately describes my personal service to the patient. 20 minutes of the total visit were spent face to face with patient. Greater than 50% of the time was spent for counseling and coordination of care, discussing treatment options and recommendations. Navneet Dunham MD July 09, 2022 4:05 PM This note was generated with voice recognition software and may contain errors, including spelling,grammar, syntax and misrecognition of what was dictated, that are not fully corrected. documented in this encounterOhiohealth [facility]-19-2022 Miscellaneous Notes* Telephone Encounter - WENDY Montez - 07/01/2022 2:41 PM EDT Last appointment within department: 04/22/2022 ([facility]) Next appointment with department: Visit date not found Pharmacy escripts requesting the following refill: Requested Prescriptions Pending Prescriptions Disp Refills famotidine (PEPCID) 20 mg tablet [Pharmacy Med Name: FAMOTIDINE 20 MG TABLET] 60 tablet 1 Sig: take 1 tablet by mouth twice a day if needed Please review and advise. WENDY Montez documented in this encounterOhiohealth Arthur [facility]09-12-2022 Miscellaneous Notes* Telephone Encounter - Eliot Dong RN - 06/24/2022 10:23 AM EDT Patient delivered below message She opts to submit a urine sample, and start antibiotic She will go to [facility] if symptoms worsen * Telephone Encounter - Jared Schilling MD - 06/24/2022 10:19 AM EDT Last Visit with pt in person was in 2019. Chronic/recurrent UTI is not something that we have addressed. In order to offer the patient thoughtful care, I would advise at least a urine sample to be submitted to look for the organism and to help direct the type of antibiotic to use. I can Rx nitrofurantoin, but if there is resistance, she may not improve and in fact worsen. I will place the lab orders. I think it is safest for her to be seen locally at [facility]. Advise [facility]/ED visit if Sx progress, Pls inform pt. TY! * Telephone Encounter - Eliot Dong RN - 06/24/2022 9:48 AM EDT Please see below for assessment. Patient did not wish to schedule an appt. States that she gets these frequently. Requesting medication to be sent to verified pharmacy. * Telephone Encounter - Eliot Dong RN - 06/24/2022 9:46 AM EDT Reason for Disposition Bad or foul-smelling urine Answer Assessment - Initial Assessment Questions 1. SYMPTOM: Burning with urination, frequency and nausea 2. ONSET: Friday 3. PAIN: Has achy bladder. Denies flank or back discomfort 4. CAUSE: States that she suffers from frequent UTIs 5. OTHER SYMPTOMS: No fever. Has chills 6. : No Protocols used: Urinary [id number] * Telephone Encounter - Yina Madsen MA - 06/24/2022 9:34 AM EDT Please triage below message from patient. Hey there. I have a bladder infection. I have a history of them. Started a few days ago and despitemy best efforts, does not seem to be improving and is quite painful. Please help. Thanks so much and hope to hear from you soon. documented in this encounterOhiohealth Arthur G.[facility]08-30-2022 Miscellaneous Notes* Telephone Encounter - Tammy Newton RN - 06/11/2022 2:[address] Brooks reviewed MyChart photos, message sent. * Telephone Encounter - Matilde Gracia - 06/11/2022 1:06 PM EDT Patient called and stated that their scab slid off and looks strange now. Patient is requesting acall back. [phone] documented in this encounterOhiohealth Arthur G.[facility]08-15-2022 History of Present illness Narrative* Naomi Clemens - 05/27/2022 4:28 PM EDT DATE OF PHOTOS: 05/27/2022 Body Part: Full Face Naomi May 27, 2022 4:28 PM documented in this encounterOhiohealth Arthur [facility]08-15-2022 History of Present illness Narrative* Navneet Dunham MD - 05/27/2022 3:15 PM EDT Plastic Surgery Note CC: post op HPI: Segundo is a 41 year old adult s/p Open septorhinoplasty, frontal sinus setback, and contouringof the forehead and supraorbital bar, scalp advancement with lowering of the hairline and brow lift. She reports pain is getting better, but she is still very uncomfortable. She can breathe through both nostrils, still using the saline rinse. Sleeping with the head upright. She is doing well since her drain was removed last week, but is concerned about an area at the front of the forehead. Deniessymptoms of infection. Post-op time: 2.5 weeks Patient denies fevers, chills. Reports pain 4/10 and some swelling of left posterior scalp swelling. Hemoglobin A1C (%) Date Value 04/12/2022 5.4 07/20/2021 5.3 07/23/2019 5.3 HBA1C, [place] (%) Date Value 09/13/2008 5.9 Last 10 Encounter BP Readings: Date: BP: 04/12/2022 118/90 03/25/2022 126/73 11/26/2021 118/76 11/13/2021 111/95 08/13/2021 107/64 08/06/2021 115/66 07/31/2021 99/60 07/17/2021 134/73 07/10/2021 135/76 06/28/2021 115/62 CBC Latest Ref Rng & Units 07/20/2021 07/27/2021 04/12/2022 WBC 3.70 - 11.00 k/uL 8.53 19.85(H) 9.21 RBC 4.20 - 6.00 m/uL 4.08(L) 3.89(L) 4.42 HEMOGLOBIN 13.0 - 17.0 g/dL 13.3 12.1(L) 13.4 HEMOGLOBIN, [place] 14.0 - 18.0 g/dL - - - HEMATOCRIT 39.0 - 51.0 % 37.2(L) 35.8(L) 39.1 MCV 80.0 - 100.0 fL 91.2 92.0 88.5 MCV, [place] 80 - 94 fL - - - MCH 26.0 - 34.0 pg 32.6 31.1 30.3 MCH, [place] 27 - 31 pg - - - MCHC 30.5 - 36.0 g/dL 35.8 33.8 34.3 MCHC, [place] 33 - 37 g/dL - - - RDW, [place] 11.5 - 14.5 % - - - RDW-CV 11.5 - 15.0 % 11.9 12.0 11.9 PLATELETS 150 - 400 k/uL 205 186 194 MPV 9.0 - 12.7 fL 11.0 9.9 9.7 NEUT%, [place] 42.2 - 75.2 % - - - MONO%, [place] 1.7 - 9.3 % - - - EOS%, [place] 0.0 - 6.0 % - - - BASO% % 0.6 - 0.3 BASO%, [place] 0.0 - 2.0 % - - - ABS NEUT (ANC) 1.45 - 7.50 k/uL 5.48 - 6.48 ABS NEUT, [place] 2.0 - 8.1 k/uL - - - ABS LYMP, [place] 1.0 - 5.5 k/uL - - - ABS LYMPH 1.00 - 4.00 k/uL 2.42 - 2.19 ABS MONO <0.87 k/uL 0.52 - 0.45 ABS MONO, [place] 0.1 - 1.0 k/uL - - - ABS EOS, [place] 0.0 - 0.2 k/uL - - - ABS EOSIN <0.46 k/uL 0.04 - 0.04 ABS BASO <0.11 k/uL 0.05 - 0.03 ABS BASO, [place] 0.0 - 0.1 k/uL - - - NRBC /100 WBC - - 0.0 DIFF TYPE - Auto Diff - - CMP Latest Ref Rng & Units 07/10/2021 07/20/2021 04/12/2022 SODIUM 136 - 144 mmol/L 138 138 138 SODIUM, [place] 136 - 145 mmol/L - - - SODIUM, [place] 136 - 145 mmol/L - - - POTASSIUM 3.7 - 5.1 mmol/L 3.9 4.1 3.9 POTASSIUM, [place] 3.5 - 5.1 mmol/L - - - CHLORIDE 97 - 105 mmol/L 103 100 103 CHLORIDE, [place] 98 - 107 mmol/L - - - CO2 22 - 30 mmol/L 23 25 21(L) CO2, [place] 21.0 - 32.0 mmol/L - - - GLUCOSE 74 - 99 mg/dL 87 88 98 GLUCOSE, [place] 70 - 99 mg/dL - - - BUN mg/dL 12 16 20 BUN, [place] 7 - 18 mg/dL - - - CREATININE mg/dL 0.61(L) 0.64(L) 0.60 CREATININE, [place] 0.8 - 1.3 mg/dL - - - EGFR >=60 mL/min/1.73m - - 124 EGFR-ALL OTHER RACES . >60 >60 - EGFR- - >60 >60 - PROTEIN, TOTAL 6.3 - 8.0 g/dL - 7.9 7.5 TOTAL PROTEIN, [place] 6.4 - 8.2 g/dL - - - ALBUMIN 3.9 - 4.9 g/dL - 4.9 4.8 ALBUMIN, [place] 3.4 - 5.0 g/dL - - - CALCIUM, [place] 8.5 - 10.1 mg/dL - - - CALCIUM, TOTAL 8.5 - 10.2 mg/dL 9.3 10.1 9.1 BILIRUBIN, TOTAL 0.2 - 1.3 mg/dL - 0.3 0.3 AST 14 - 40 U/L - 22 16 AST, [place] 15 - 37 U/L - - - ALT 10 - 54 U/L - 25 16 ALT, [place] 30 - 65 U/L - - - ALKALINE PHOSPHATASE 38 - 113 U/L - 57 59 Objective: There were no vitals taken for this visit. 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 12 tablet 0 busPIRone (BUSPAR) 10 mg tablet Take 1 tablet by mouth once daily. 30 tablet 5 oxyCODONE IR (ROXICODONE) 5 mg immediate release tablet Take 1 tablet by mouth every 8 hours as needed for pain. 21 tablet 0 docusate sodium (COLACE) 100 mg capsule Take 1 capsule by mouth twice daily as needed for constipation. 20 capsule 0 cefADROxil (DURICEF) 500 mg capsule Take 1 capsule by mouth twice daily for 10 days. 20 capsule 0 acetaminophen (TYLENOL EXTRA STRENGTH) 500 mg tablet Take 2 tablets by mouth every 6 hours as needed for pain 30 tablet 0 famotidine (PEPCID) 20 mg tablet Take 1 tablet by mouth twice daily as needed. 60 tablet 1 estradiol (ESTRACE) 2 mg tablet Take 1 tablet by mouth three times daily. 270 tablet 1 finasteride (PROPECIA,PROSCAR) 1 mg tablet Take 1 tablet by mouth once daily. 90 tablet 3 spironolactone (ALDACTONE) 50 mg tablet Take 1 tablet by mouth twice daily. 180 tablet 1 levothyroxine (SYNTHROID) 25 mcg tablet Take 1 tablet by mouth once daily. 90 tablet 0 fluvoxaMINE (LUVOX) 100 mg tablet take 1 capsule by mouth every morning 90 tablet 3 MULTIVITAMIN/IRON/FOLIC ACID (DAILY MULTI ORAL) Take 1 tablet by mouth once daily. No current facility-administered medications for this visit. ALLERGIES Allergen Reactions Dexamethasone Swelling Hydrocodone Mental Status Change, Other: See Comments hallucinations ROS: All negative except for: GENERAL: []weight loss []malaise []fevers HEENT: []frequent or significant headaches []changes in hearing []change in vision []nose bleeds []other nasal problems NECK: []lumps []goiter []pain and significant neck swelling RESPIRATORY: []cough []hemoptysis []wheezing []COPD []dyspnea []shortness of breath CARDIOVASCULAR: []chest pain []leg swelling []hypertension []CHF []palpitations GI: []nausea []vomiting []diarrhea MUSCULOSKELETAL: see HPI SKIN: [] skin lesions []rash []itching PSYCH: []sleep disturbance []mood disorder []recent psychosocial stressors HEMATOLOGY/LYMPHOLOGY: []prolonged bleeding []bruising easily []swollen nodes ENDOCRINE: []cold intolerance []heat intolerance []polyuria []polydipsia []goiter PE: Alert, awake in NAD Incisions are healed No s/s of infection No evidence of fluid collection No evidence of infection A/P: Post operative state Doing well -Sutures removed today- patient tolerated well -Instructed to tape nose for 3 months post operatively -Photos today The patient is seen and examined by Dr. Brooks and the following reflects his/her service. Scribedby Bonnie Guo RN I agree with the Chief Complaint, ROS, and Past Histories independently gathered by the clinical technical support internship/resident and the remaining scribed note accurately describes my personal service to the patient. 20 minutes of the total visit were spent face to face with patient. Greater than 50% of the time was spent for counseling and coordination of care, discussing treatment options and recommendations. Navneet Dunham MD May 27, 2022 6:35 PM This note was generated with voice recognition software and may contain errors, including spelling,grammar, syntax and misrecognition of what was dictated, that are not fully corrected. documented in this encounterOhiohealth Arthur [facility]08-09-2022 History of Present illness Narrative* Navneet Dunham MD - 05/21/2022 2:00 PM EDT Plastic Surgery Note CC: post op HPI: Segundo is a 41 year old adult s/p Open septorhinoplasty, frontal sinus setback, and contouringof the forehead and supraorbital bar, scalp advancement with lowering of the hairline and brow lift. She reports pain is getting better, but she is still very uncomfortable. She can breathe through both nostrils, still using the saline rinse. Sleeping with the head upright. She is doing well since her drain was removed last week, but is concerned about an area at the front of the forehead. Deniessymptoms of infection. Post-op time: 11 days Hemoglobin A1C (%) Date Value 04/12/2022 5.4 07/20/2021 5.3 07/23/2019 5.3 HBA1C, [place] (%) Date Value 09/13/2008 5.9 Last 10 Encounter BP Readings: Date: BP: 04/12/2022 118/90 03/25/2022 126/73 11/26/2021 118/76 11/13/2021 111/95 08/13/2021 107/64 08/06/2021 115/66 07/31/2021 99/60 07/17/2021 134/73 07/10/2021 135/76 06/28/2021 115/62 CBC Latest Ref Rng & Units 07/20/2021 07/27/2021 04/12/2022 WBC 3.70 - 11.00 k/uL 8.53 19.85(H) 9.21 RBC 4.20 - 6.00 m/uL 4.08(L) 3.89(L) 4.42 HEMOGLOBIN 13.0 - 17.0 g/dL 13.3 12.1(L) 13.4 HEMOGLOBIN, [place] 14.0 - 18.0 g/dL - - - HEMATOCRIT 39.0 - 51.0 % 37.2(L) 35.8(L) 39.1 MCV 80.0 - 100.0 fL 91.2 92.0 88.5 MCV, [place] 80 - 94 fL - - - MCH 26.0 - 34.0 pg 32.6 31.1 30.3 MCH, [place] 27 - 31 pg - - - MCHC 30.5 - 36.0 g/dL 35.8 33.8 34.3 MCHC, [place] 33 - 37 g/dL - - - RDW, [place] 11.5 - 14.5 % - - - RDW-CV 11.5 - 15.0 % 11.9 12.0 11.9 PLATELETS 150 - 400 k/uL 205 186 194 MPV 9.0 - 12.7 fL 11.0 9.9 9.7 NEUT%, [place] 42.2 - 75.2 % - - - MONO%, [place] 1.7 - 9.3 % - - - EOS%, [place] 0.0 - 6.0 % - - - BASO% % 0.6 - 0.3 BASO%, [place] 0.0 - 2.0 % - - - ABS NEUT (ANC) 1.45 - 7.50 k/uL 5.48 - 6.48 ABS NEUT, [place] 2.0 - 8.1 k/uL - - - ABS LYMP, [place] 1.0 - 5.5 k/uL - - - ABS LYMPH 1.00 - 4.00 k/uL 2.42 - 2.19 ABS MONO <0.87 k/uL 0.52 - 0.45 ABS MONO, [place] 0.1 - 1.0 k/uL - - - ABS EOS, [place] 0.0 - 0.2 k/uL - - - ABS EOSIN <0.46 k/uL 0.04 - 0.04 ABS BASO <0.11 k/uL 0.05 - 0.03 ABS BASO, [place] 0.0 - 0.1 k/uL - - - NRBC /100 WBC - - 0.0 DIFF TYPE - Auto Diff - - CMP Latest Ref Rng & Units 07/10/2021 07/20/2021 04/12/2022 SODIUM 136 - 144 mmol/L 138 138 138 SODIUM, [place] 136 - 145 mmol/L - - - SODIUM, [place] 136 - 145 mmol/L - - - POTASSIUM 3.7 - 5.1 mmol/L 3.9 4.1 3.9 POTASSIUM, [place] 3.5 - 5.1 mmol/L - - - CHLORIDE 97 - 105 mmol/L 103 100 103 CHLORIDE, [place] 98 - 107 mmol/L - - - CO2 22 - 30 mmol/L 23 25 21(L) CO2, [place] 21.0 - 32.0 mmol/L - - - GLUCOSE 74 - 99 mg/dL 87 88 98 GLUCOSE, [place] 70 - 99 mg/dL - - - BUN mg/dL 12 16 20 BUN, [place] 7 - 18 mg/dL - - - CREATININE mg/dL 0.61(L) 0.64(L) 0.60 CREATININE, [place] 0.8 - 1.3 mg/dL - - - EGFR >=60 mL/min/1.73m - - 124 EGFR-ALL OTHER RACES . >60 >60 - EGFR- - >60 >60 - PROTEIN, TOTAL 6.3 - 8.0 g/dL - 7.9 7.5 TOTAL PROTEIN, [place] 6.4 - 8.2 g/dL - - - ALBUMIN 3.9 - 4.9 g/dL - 4.9 4.8 ALBUMIN, [place] 3.4 - 5.0 g/dL - - - CALCIUM, [place] 8.5 - 10.1 mg/dL - - - CALCIUM, TOTAL 8.5 - 10.2 mg/dL 9.3 10.1 9.1 BILIRUBIN, TOTAL 0.2 - 1.3 mg/dL - 0.3 0.3 AST 14 - 40 U/L - 22 16 AST, [place] 15 - 37 U/L - - - ALT 10 - 54 U/L - 25 16 ALT, [place] 30 - 65 U/L - - - ALKALINE PHOSPHATASE 38 - 113 U/L - 57 59 Objective: There were no vitals taken for this visit. 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 21 tablet 0 ondansetron (ZOFRAN) 4 mg tablet Take 1 tablet by mouth every 8 hours as needed for nausea/vomiting. 12 tablet 0 keTORolac (TORADOL) 10 mg tablet Take 1 tablet by mouth every 6 hours as needed for pain for up to 5 days. 20 tablet 0 docusate sodium (COLACE) 100 mg capsule Take 1 capsule by mouth twice daily as needed for constipation. 20 capsule 0 cefADROxil (DURICEF) 500 mg capsule Take 1 capsule by mouth twice daily for 10 days. 20 capsule 0 acetaminophen (TYLENOL EXTRA STRENGTH) 500 mg tablet Take 2 tablets by mouth every 6 hours as needed for pain 30 tablet 0 famotidine (PEPCID) 20 mg tablet Take 1 tablet by mouth twice daily as needed. 60 tablet 1 busPIRone (BUSPAR) 10 mg tablet Take 1 tablet by mouth once daily. 30 tablet 0 estradiol (ESTRACE) 2 mg tablet Take 1 tablet by mouth three times daily. 270 tablet 1 finasteride (PROPECIA,PROSCAR) 1 mg tablet Take 1 tablet by mouth once daily. 90 tablet 3 spironolactone (ALDACTONE) 50 mg tablet Take 1 tablet by mouth twice daily. 180 tablet 1 levothyroxine (SYNTHROID) 25 mcg tablet Take 1 tablet by mouth once daily. 90 tablet 0 fluvoxaMINE (LUVOX) 100 mg tablet take 1 capsule by mouth every morning 90 tablet 3 MULTIVITAMIN/IRON/FOLIC ACID (DAILY MULTI ORAL) Take 1 tablet by mouth once daily. No current facility-administered medications for this visit. ALLERGIES Allergen Reactions Dexamethasone Swelling Hydrocodone Mental Status Change, Other: See Comments hallucinations ROS: All negative except for: GENERAL: []weight loss []malaise []fevers HEENT: []frequent or significant headaches []changes in hearing []change in vision []nose bleeds []other nasal problems NECK: []lumps []goiter []pain and significant neck swelling RESPIRATORY: []cough []hemoptysis []wheezing []COPD []dyspnea []shortness of breath CARDIOVASCULAR: []chest pain []leg swelling []hypertension []CHF []palpitations GI: []nausea []vomiting []diarrhea MUSCULOSKELETAL: see HPI SKIN: [] skin lesions []rash []itching PSYCH: []sleep disturbance []mood disorder []recent psychosocial stressors HEMATOLOGY/LYMPHOLOGY: []prolonged bleeding []bruising easily []swollen nodes ENDOCRINE: []cold intolerance []heat intolerance []polyuria []polydipsia []goiter PE: Alert, awake in NAD All incisions c/d/i No evidence of fluid collection No evidence of infection Moderate swelling. No obstruction to breathing A/P: Post operative state Doing well -Sutures, [place] and internal nasal splints, and Aquaplast thermoplastic splint removed today- patient tolerated well -Do not wear eye glasses, recommend patient wears contacts to eliminate pressure on the nose -Instructed how to tape nose -Continue nasal spray -Activity restrictions reviewed Follow up in 1 week for forehead suture removal The patient is seen and examined by Dr. Brooks and the following reflects his/her service. Maraibedby Tammy Newton RN I agree with the Chief Complaint, ROS, and Past Histories independently gathered by the clinical technical support internship/resident and the remaining scribed note accurately describes my personal service to the patient. 20 minutes of the total visit were spent face to face with patient. Greater than 50% of the time was spent for counseling and coordination of care, discussing treatment options and recommendations. Navneet Dunham MD May 21, 2022 6:22 PM This note was generated with voice recognition software and may contain errors, including spelling,grammar, syntax and misrecognition of what was dictated, that are not fully corrected. documented in this encounterOhiohealth Arthur [facility]08-03-2022 Miscellaneous Notes* Telephone Encounter - Sonia Woods - 05/15/2022 3:03 PM EDT Calling for a prescription refill on: Order name: ondansetron (ZOFRAN) 4 mg tablet Medication: ONDANSETRON HCL 4 MG TABLET [00751 Take 1 tablet by mouth every 8 hours as needed for nausea/vomiting She said [facility] in [place] documented in this encounterOhiohealth Arthur [facility]08-02-2022 Miscellaneous Notes* Telephone Encounter - Donna Martinez LPN - 05/14/2022 10:13 AM EDT Pharmacy electronically requests the following refill(s) Last vv 04/22/22 No future appt Pending Prescriptions Disp Refills BUSPIRONE 10 MG TABLET 30 tablet 5 Sig: Take 1 tablet by mouth once daily. KRISTEN: No Donna Martinez LPN documented in this encounterOhiohealth Arthur G.[facility]. [facility]08-02-2022 History of Present illness Narrative* Shabnam Gomez RN - 05/14/2022 9:10 AM EDT TRANSITIONAL CARE MANAGEMENT (TCM) COMMUNITY MONITORING PROGRAM Provider Action/FYI: Second attempt for initial outreach to pt for hospital discharge. No answer, left another VM to return my call. Contact made with patient: No - 2nd unsuccessful attempt - end outreach and close encounter Outreach ended * Shabnam Gomez RN - 05/13/2022 9:05 AM EDT TCM Home Visit Referral Source of Stratification: [facility] Hospital Admission Status: Discharged Readmission Risk Score: 10 CANDELARIO Score: 1 Program referral criteria met: Does not meet referral criteria Patient does not qualify for High Risk TCM Home Visit program due to: Does not meet referral criteria Patient does not quality for High Risk TCM Home Visit Program due to: Does not meet referral criteria Preferred contact number: NA Is patient staying somewhere other than the listed home address: NA Dialysis Patient: No TRANSITIONAL CARE MANAGEMENT (TCM) COMMUNITY MONITORING PROGRAM Provider Action/FYI: Attempted initial outreach to pt for hospital discharge. No answer, left VM to return my call. Willattempt to outreach to pt again later today or tomorrrow if no return call from pt. 05/10 Rhinoplasty and Brow Lift PLAS 05/13 SUMMARY: Pt discharged from [facility] on 05/11/22. Admitted for: gender dysphoria Contact made with patient: No - next outreach attempt will be on next day Outreach ended documented in this encounterOhiohealth Arthur [facility]08-01-2022 Instructions* Patient Instructions* Navneet Dunham MD - 05/13/2022 2:59 PM EDT RHINOPLASTY HOMEGOING INSTRUCTIONS 1.) You may expect: a.) Bruising around the eyelids and cheeks. b.) Swelling. c.) Numbness at the tip of the nose. d.) Nasal dripping. e.) Nasal congestion. f.) A small amount of bleeding. 2.) The nasal splint should stay on for about 5 days or until your return appointment. Stitches will also be removed in 5-7 days. If you have splints inside your nose, your doctor will tell you when they will be removed. 3.) KEEP THE NASAL SPLINT DRY!! 4.) You may shower the day after surgery, being careful to keep the splint dry. 5.) Keep you head elevated above waist level for the first 5 days after surgery. 6.) Do not blow your nose for the first 10 days after surgery. 7.) Use saline nose drops as needed for nasal congestion. 8.) Do not insert anything into your nose. 9.) Sneeze with your mouth open to reduce pressure. 10.) Do not smoke for 2 weeks after surgery. 11.) Keep exercise to a minimum for 2-3 weeks after surgery. 12.) After the splint is removed, your nose will still be somewhat swollen. The swelling will decrease over the next 3-6 months. 13.) Avoid prolonged exposure to the sun. Use a sunscreen or wear a hat until all numbness disappears, usually or about 6 months. 14.) You may experience some difficulty in breathing through your nose occasionally for 6-12 monthsafter surgery. ADDITIONAL INFORMATION: [facility] Department of Plastic Surgery Appointments: [phone] Your physician is: Navneet Brooks MD Night and weekends: Call [phone] ask for the Plastic Surgery Resident mechanical systems control engineer Toll Free: [phone] ( ) documented in this encounterOhiohealth Arthur [facility]08-01-2022 History of Present illness Narrative* Navneet Dunham MD - 05/13/2022 2:00 PM EDT Plastic Surgery Note CC: pain HPI: Segundo is a 41 year old adult who underwent facial feminization on 05/10/22 and septorhinoplasty. She is c/o of pain. Drainage is serous (25cc since surgery). Hemoglobin A1C (%) Date Value 04/12/2022 5.4 07/20/2021 5.3 07/23/2019 5.3 HBA1C, [place] (%) Date Value 09/13/2008 5.9 Last 10 Encounter BP Readings: Date: BP: 04/12/2022 118/90 03/25/2022 126/73 11/26/2021 118/76 11/13/2021 111/95 08/13/2021 107/64 08/06/2021 115/66 07/31/2021 99/60 07/17/2021 134/73 07/10/2021 135/76 06/28/2021 115/62 CBC Latest Ref Rng & Units 07/20/2021 07/27/2021 04/12/2022 WBC 3.70 - 11.00 k/uL 8.53 19.85(H) 9.21 RBC 4.20 - 6.00 m/uL 4.08(L) 3.89(L) 4.42 HEMOGLOBIN 13.0 - 17.0 g/dL 13.3 12.1(L) 13.4 HEMOGLOBIN, BUSHRA 14.0 - 18.0 g/dL - - - HEMATOCRIT 39.0 - 51.0 % 37.2(L) 35.8(L) 39.1 MCV 80.0 - 100.0 fL 91.2 92.0 88.5 MCV, BUSHRA 80 - 94 fL - - - MCH 26.0 - 34.0 pg 32.6 31.1 30.3 MCH, BUSHRA 27 - 31 pg - - - MCHC 30.5 - 36.0 g/dL 35.8 33.8 34.3 MCHC, BUSHRA 33 - 37 g/dL - - - RDW, BUSHRA 11.5 - 14.5 % - - - RDW-CV 11.5 - 15.0 % 11.9 12.0 11.9 PLATELETS 150 - 400 k/uL 205 186 194 MPV 9.0 - 12.7 fL 11.0 9.9 9.7 NEUT%, BUSHRA 42.2 - 75.2 % - - - MONO%, BUSHRA 1.7 - 9.3 % - - - EOS%, BUSHRA 0.0 - 6.0 % - - - BASO% % 0.6 - 0.3 BASO%, BUSHRA 0.0 - 2.0 % - - - ABS NEUT (ANC) 1.45 - 7.50 k/uL 5.48 - 6.48 ABS NEUT, BUSHRA 2.0 - 8.1 k/uL - - - ABS LYMP, BUSHRA 1.0 - 5.5 k/uL - - - ABS LYMPH 1.00 - 4.00 k/uL 2.42 - 2.19 ABS MONO <0.87 k/uL 0.52 - 0.45 ABS MONO, BUSHRA 0.1 - 1.0 k/uL - - - ABS EOS, BUSHRA 0.0 - 0.2 k/uL - - - ABS EOSIN <0.46 k/uL 0.04 - 0.04 ABS BASO <0.11 k/uL 0.05 - 0.03 ABS BASO, BUSHRA 0.0 - 0.1 k/uL - - - NRBC /100 WBC - - 0.0 DIFF TYPE - Auto Diff - - CMP Latest Ref Rng & Units 07/10/2021 07/20/2021 04/12/2022 SODIUM 136 - 144 mmol/L 138 138 138 SODIUM, BUSHRA 136 - 145 mmol/L - - - SODIUM, BSUHRA 136 - 145 mmol/L - - - POTASSIUM 3.7 - 5.1 mmol/L 3.9 4.1 3.9 POTASSIUM, BUSHRA 3.5 - 5.1 mmol/L - - - CHLORIDE 97 - 105 mmol/L 103 100 103 CHLORIDE, BUSHRA 98 - 107 mmol/L - - - CO2 22 - 30 mmol/L 23 25 21(L) CO2, BUSHRA 21.0 - 32.0 mmol/L - - - GLUCOSE 74 - 99 mg/dL 87 88 98 GLUCOSE, BUSHRA 70 - 99 mg/dL - - - BUN mg/dL 12 16 20 BUN, BUSHRA 7 - 18 mg/dL - - - CREATININE mg/dL 0.61(L) 0.64(L) 0.60 CREATININE, BUSHRA 0.8 - 1.3 mg/dL - - - EGFR >=60 mL/min/1.73m - - 124 EGFR-ALL OTHER RACES . >60 >60 - EGFR- - >60 >60 - PROTEIN, TOTAL 6.3 - 8.0 g/dL - 7.9 7.5 TOTAL PROTEIN, BUSHRA 6.4 - 8.2 g/dL - - - ALBUMIN 3.9 - 4.9 g/dL - 4.9 4.8 ALBUMIN, BUSHRA 3.4 - 5.0 g/dL - - - CALCIUM, BUSHRA 8.5 - 10.1 mg/dL - - - CALCIUM, TOTAL 8.5 - 10.2 mg/dL 9.3 10.1 9.1 BILIRUBIN, TOTAL 0.2 - 1.3 mg/dL - 0.3 0.3 AST 14 - 40 U/L - 22 16 AST, BUSHRA 15 - 37 U/L - - - ALT 10 - 54 U/L - 25 16 ALT, BUSHRA 30 - 65 U/L - - - ALKALINE PHOSPHATASE 38 - 113 U/L - 57 59 Objective: There were no vitals taken for this visit. PAST MEDICAL HISTORY Diagnosis Date Chronic depressive personality disorder Former smoker 07/17/2021 Gender dysphoria 07/17/2021 Generalized anxiety disorder Hypothyroidism Obesity 07/17/2021 Tobacco use disorder PAST SURGICAL HISTORY Procedure Laterality Date OSTEOTOMY - BODY OF MANDIBLE 07/2021 with cheek augmentation Current Outpatient Medications Medication Sig Dispense Refill famotidine (PEPCID) 20 mg tablet Take 1 tablet by mouth twice daily as needed. 60 tablet 1 busPIRone (BUSPAR) 10 mg tablet Take 1 tablet by mouth once daily. 30 tablet 0 estradiol (ESTRACE) 2 mg tablet Take 1 tablet by mouth three times daily. 270 tablet 1 finasteride (PROPECIA,PROSCAR) 1 mg tablet Take 1 tablet by mouth once daily. 90 tablet 3 spironolactone (ALDACTONE) 50 mg tablet Take 1 tablet by mouth twice daily. 180 tablet 1 levothyroxine (SYNTHROID) 25 mcg tablet Take 1 tablet by mouth once daily. 90 tablet 0 fluvoxaMINE (LUVOX) 100 mg tablet take 1 capsule by mouth every morning 90 tablet 3 MULTIVITAMIN/IRON/FOLIC ACID (DAILY MULTI ORAL) Take 1 tablet by mouth once daily. No current facility-administered medications for this visit. ALLERGIES Allergen Reactions Dexamethasone Swelling Hydrocodone Mental Status Change, Other: See Comments hallucinations ROS: All negative except for: GENERAL: []weight loss []malaise []fevers HEENT: []frequent or significant headaches []changes in hearing []change in vision []nose bleeds []other nasal problems NECK: []lumps []goiter []pain and significant neck swelling RESPIRATORY: []cough []hemoptysis []wheezing []COPD []dyspnea []shortness of breath CARDIOVASCULAR: []chest pain []leg swelling []hypertension []CHF []palpitations GI: []nausea []vomiting []diarrhea MUSCULOSKELETAL: see HPI SKIN: [] skin lesions []rash []itching PSYCH: []sleep disturbance []mood disorder []recent psychosocial stressors HEMATOLOGY/LYMPHOLOGY: []prolonged bleeding []bruising easily []swollen nodes ENDOCRINE: []cold intolerance []heat intolerance []polyuria []polydipsia []goiter PE: Alert, awake in NAD All incisions c/d/i No evidence of collection A/P: Postop. Expected postoperative course. Instructed on use of nasal spray and sleep in sitting position. Removed the drain. 20 minutes of the total visit were spent face to face with patient. Greater than 50% of the time was spent for counseling and coordination of care, discussing treatment options and recommendations. Navneet Dunham MD May 13, 2022 2:59 PM This note was generated with voice recognition software and may contain errors, including spelling,grammar, syntax and misrecognition of what was dictated, that are not fully corrected. documented in this encounterOhiohealth [facility]-31-2022 Miscellaneous Notes* Telephone Encounter - Yina Paez MD - 05/12/2022 3:00 AM EDT Plastic Surgery - Telephone Encounter Patient called with concern of: uncontrolled pain 41 MTF s/p facial feminization (open septorhinoplasty, frontal sinus setback, contouring of forehead and supraorbital bar, scalp advancement with lowering of hairline and brow lift) on 05/10 who was discharged in the afternoon of 05/11. Calling several times with concerns of uncontrolled pain. Patient's pharmacy closed prior to her being able to waste picker her prescriptions. I switched her prescriptions to a local [facility] open until 11pm, but she was also unable to pick these up. The nearest 24hr pharmacy at this time was in [place], about1 hour away from her home. Additionally patient complaining of mostly periorbital swelling. That started after she was laying down to try and sleep. States surgical sites are: well healed, clean, dry and intact and there is no erythema or drainage present. No erythema. Drains continue to have minimal output in content, character and volume. Shedeniesconstitutional symptoms. denies fevers or chills. Ambulatory. Good oral intake. Voiding without difficulty. Plan: 41 MTF s/p facial feminization on 05/10 calling with concerns of uncontrollable pain. Unable to pickup her prescriptions since being discharged this afternoon. Photos reviewed and largely look unchanged from my assessment earlier this afternoon aside from herperiorbital edema. Drain output remains minimal and looks serosanguinous from photos. Patient has left over Avery from her prior procedure. I instructed her to take 1 tablet of 5-325mg norco every 4hrs and to alternate this with ibuprofen. This will hopefully get her through the nightuntil she is able to waste picker her prescriptions in the morning. As far as her periorbital edema, it is likely secondary to her laying flat. I instructed her to laywith her head propped up with pillows or to sleep in a recliner tonight. Patient agreeable to care plan at this time, all questions and concerns addressed. Instructed on red-flag symptoms to call back if occur, understanding. Instructed on emergency signs/symptoms in which to come to ED immediately or call 06-23, patient understanding. Will update staff and care team. Yina Paez MD, MPH Plastic Surgery After 6 pm and on-weekends, please page [phone] (on-call plastic surgery) documented in this encounterOhiohealth Arthur [facility]07-31-2022 Miscellaneous Notes* Telephone Encounter - Liza Ramirez RN - 05/12/2022 2:57 AM EDT of patient calling with concern for post-op pain. Priority symptoms ruled out. Warm transferred to [facility] to page mechanical systems control engineer provider for Dr. Cecilia Dunham (Plastic Surgery). GO TO THE EMERGENCY ROOM OR CALL [phone] IF: * You develop any new symptoms * Your condition worsens * You are concerned or anxious about your condition for any other reason. documented in this encounterOhiohealth Arthur [facility]2022 Miscellaneous Notes* Telephone Encounter - Liza Ramirez RN - 05/11/2022 8:13 PM EDT [facility] calling NOC regarding who to contact for patient having problems filling medications. Patient discharged today from main campus under plastic surgery service. [facility] advised to contact on-call provider for Dr. Cecilia Dunham (plastic surgery) regarding discharge medication issues. documented in this encounterOhiohealth Arthur [facility]07-25-2022 Miscellaneous Notes* Telephone Encounter - Donna Hebert - 05/06/2022 11:13 AM EDT Patient has several pre op/post op questions. Would like a call. documented in this encounterOhiohealth Arthur [facility]07-11-2022 History of Present illness Narrative* Jared Schilling MD - 04/22/2022 4:44 PM EDT DISTANCE HEALTH VISIT This Team Access Model visit is a virtual encounter. It required patient- provider interaction for the medical decision making as documented below. Segundo Quezada is a 41 year old adult seen for follow-up. HISTORY REVIEWED (electronic chart updated): - medical history - medications - allergies Last OV with me was on 09/04/2021. Gender transitionwise everything is awesome. Denies side effects of gender affirmation care other than I pee a lot She has FFS scheduled on 05/10. Her current regimen is estradiol 2 mg TID, spironolactone 50 mg BID and finasteride1 mg daily. 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 +mild nausea, worsening GERD and dyspepsia She finds she is ruminating and overthinking things She has a hard time falling asleep REVIEW OF SYSTEMS: All other ROS: negative As noted in HPI PHYSICAL EXAMINATION: VIDEO EXAM: (if done, performed via video enabled technology) GENERAL: alert and appropriate, in no distress and well-hydrated, well nourished SKIN: no rash noted HEAD: normocephalic, no abnormality or lesion noted EYES: no injection and visual acuity is grossly normal EARS: hearing grossly normal NOSE: external nose normal without rhinorrhea OROPHARYNX: moist mucus membranes NECK: full ROM, no cervical LNs noted RESPIRATORY: breathing non-labored CHEST: equal chest rise with normal respiratory effort Component Latest Ref Rng & Units 04/12/2022 WBC 3.70 - 11.00 k/uL 9.21 RBC 4.20 - 6.00 m/uL 4.42 Hemoglobin 13.0 - 17.0 g/dL 13.4 Hematocrit 39.0 - 51.0 % 39.1 MCV 80.0 - 100.0 fL 88.5 MCH 26.0 - 34.0 pg 30.3 MCHC 30.5 - 36.0 g/dL 34.3 RDW-CV 11.5 - 15.0 % 11.9 Platelet Count 150 - 400 k/uL 194 MPV 9.0 - 12.7 fL 9.7 Neut% % 70.4 Abs Neut (ANC) 1.45 - 7.50 k/uL 6.48 Lymph% % 23.8 Abs Lymph 1.00 - 4.00 k/uL 2.19 Valley% % 4.9 Abs Valley <0.87 k/uL 0.45 Eosin% % 0.4 Abs Eosin <0.46 k/uL 0.04 Baso% % 0.3 Abs Baso <0.11 k/uL 0.03 Immature Gran % % 0.2 IMMATURE GRANS (ABS) <0.10 k/uL <0.03 NRBC /100 WBC 0.0 Absolute nRBC <0.01 k/uL <0.01 DTYPE Auto Protein, Total 6.3 - 8.0 g/dL 7.5 Albumin 3.9 - 4.9 g/dL 4.8 Calcium 8.5 - 10.2 mg/dL 9.1 Bilirubin, Total 0.2 - 1.3 mg/dL 0.3 Alkaline Phosphatase 38 - 113 U/L 59 AST 14 - 40 U/L 16 ALT 10 - 54 U/L 16 Glucose 74 - 99 mg/dL 98 BUN mg/dL 20 Creatinine mg/dL 0.60 Sodium 136 - 144 mmol/L 138 Potassium 3.7 - 5.1 mmol/L 3.9 Chloride 97 - 105 mmol/L 103 CO2 22 - 30 mmol/L 21 (L) Anion Gap 9 - 18 mmol/L 14 eGFR >=60 mL/min/1.73m 124 ABO O Rh(D) Positive Antibody Screen Negative Historical Ab Scr Status NEGATIVE HIV 12 Combo (Ag/Ab) Nonreactive Nonreactive HIV 1/2 Ab HIV Interpretation Hemoglobin A1C 4.3 - 5.6 % 5.4 Estimated Average Glucose mg/dL 108 Nicotine <2 ng/mL <2 Cotinine <2 ng/mL <2 PT Sec 9.7 - 13.0 sec 11.7 PT INR 0.9 - 1.3 1.1 Estradiol 17B pg/mL 145 Testosterone 87 - 780 ng/dL <12 (L) APTT 23.0 - 32.4 sec 27.4 HCV RNA by PCR (none) HCV RNA not detected by PCR. (A) Hep B Surface Ag Negative Negative Hep A Ab, IgM Negative Negative Hep B Core Ab, IgM Negative Negative Hep C Antibody IA Negative Negative Hep B Surface Ab, Qual Negative Negative Hep B Core Ab, Total Negative Negative GITA 7 score: 21, very difficult ASSESSMENT: Encounter Diagnosis ICD-10-CM 1. Gender dysphoria F64.9 2. Anxiety and depression F41.9 F32.A PLAN: #Gender dysphoria Doing well on gender affirmation hormonal therapy with estradiol and spironolactone and finasteride No obvious negative side effects Physical changes are as expected on medical therapy Continue current medications and doses Future labs ordered today - CBC (to monitor for anemia), BMP (if on spironolactone), estradiol 17OH, total testosterone FU in 6 months for gender affirmation surveillance care, sooner PRN #Severe Anxiety Pt has severe anxiety based on Sx and GITA scoring. She is already on fluvoxamine for OCD. She does not recall if she has been on Buspar. Pharmacologic Tx: -SSRI or SNRI -Buspirone -Discussed role of BNZ and that BNZ can be habit forming and contribute to physiologic dependence. Patient elects to start buspirone FU anxiety in 4-6 weeks to assess medication efficacy, side effects. Reviewed box breathing exercises. #GERD Advised a trial of H2 galilea PRN Medical Decision Making: Problems: Moderate: 1+ chronic illnesses with change Data: Unique test result(s) reviewed: 3+ Unique test(s) ordered: 3+ Risk: Moderate: Drug management High: High risk from testing/treatment Medical Decision Making Level: 4 - Moderate Jared Schilling MD, MPH Director - [facility] [employer] - Transgender Surgery and Medicine Program [facility] Internal Medicine and Geriatrics He/Him/They/Them documented in this encounterOhiohealth Arthur [facility]07-11-2022 Miscellaneous Notes* Telephone Encounter - Sonia Chuck - 04/22/2022 1:45 PM EDT Patient called and would like someone to call her. She is just worried about the labs and making sure surgery is still a go. Was originally told to put on as a VV with Dr. Brooks. She just wants a call back from Dr. Ravi nurse and Jewell to confirm surgery information. documented in this encounterOhiohealth Arthur [facility]07-01-2022 History and physical note * Clair Maria APRN.SLOT AMBASSADOR - 04/12/2022 3:40 PM EDT HISTORY AND PHYSICAL EXAMINATION SERVICE DATE: 04/12/2022 SERVICE TIME: 3:31 PM PRIMARY CARE PHYSICIAN: Jared Schilling MD REASON FOR VISIT: Segundo Quezada is a 41 year old adult who is scheduled for Procedure(s): SEPTOPLASTY (Bilateral) REPAIR NASAL VESTIBULAR STENOSIS (Bilateral) RECONSTRUCTION, MAJORITY OF FOREHEAD AND SUPRAORBITAL RIMS; WITH GRAFTS (Bilateral) TRANSFER / REARRANGEMENT,ADJACENT TISSUE SCALP DEFECT 10.1 SQ CM TO 30.0 SQ CM (Bilateral) at the request of Dr. Navneet Dunham MD for consultation. My final recommendation will be communicatedback to the requesting physician by way of shared medical record or letter. Subjective The patient has the following: ACTIVE PROBLEM LIST History of 2019 Novel Coronavirus Disease (Covid-19) Gender Dysphoria Obesity Former Smoker Concern About Skin Disease Without Diagnosis Nasal Valve Collapse Nasal Septal Deviation Hypothyroidism Anxiety and Depression COVID-19 Immunization Status Overdue - COVID-19 VACCINE (3 - Booster for Moderna series) Overdue since 07/26/2021 02/23/2021 Imm Admin: COVID-19 vaccine, full dose (MODERNA) 01/26/2021 Imm Admin: COVID-19 vaccine, full dose (MODERNA) CHIEF COMPLAINT: Pre-Op Exam HPI: 41 year old adult presents with nasal valve collapse. Patient is a male transitioning to female. She is s/p facial reconstruction for feminization in July of last year. She is now pursuing further feminization surgical intervention. She does note some snoring and difficulty breathing through the right side of her nose. She denies any apnea. REVIEW OF SYSTEMS: General: No weight loss, malaise or fevers. Neurological: No history of TIA's, stroke, NEWSPAPER DELIVERER tumor, impaired sensorium, hemiplegia, paraplegia orquadraplegia. No neurological symptoms or problems. Respiratory: No history of current cough or dyspnea, or pneumonia in the past 6 weeks. No history of respiratory/pulmonary symptoms or problems. Cardiovascular: No history of HTN requiring medication, no history of angina, CHF, SD, cardiac surgery or stents. Denies rest pain, gangrene or revascularization/amputation for PVD. No history of cardiovascular symptoms or problems. GI: No history of GI symptoms or problems. No history of esophageal varices, recent ascites, or ETOH greater than 2 drinks per day. : No history of dysuria, frequency or incontinence, stones or chronic kidney disease. No difficulty urinating, nocturia > 1 time per night or hematuria. Endocrine: Positive for: hypothyroidism (on Rx). Negative for: diabetes mellitus and hyperthyroidism. Hematology: No history of bleeding or clotting disorder. Patient is not taking anti-coagulation or platelet medications. No history of hematological symptoms or problems. Oncology: No history of CA metastasis, chemo within 30 days, or radiotherapy within 90 days. No history of oncological symptoms or problems. Psych: Positive for: anxiety and depression (Stable on Rx, following with PCP). Musculoskeletal: Negative for joint pain or swelling, back pain or muscle pain. Skin: Negative for lesions, rash and itching. PAST MEDICAL HISTORY Diagnosis Date Chronic depressive personality disorder Former smoker 07/17/2021 Gender dysphoria 07/17/2021 Generalized anxiety disorder Hypothyroidism Obesity 07/17/2021 Tobacco use disorder PAST SURGICAL HISTORY Procedure Laterality Date OSTEOTOMY - BODY OF MANDIBLE 07/2021 with cheek augmentation FAMILY HISTORY Problem Relation Age of Onset other (hepatitis) Mother other (ulcers) Father No Known Problems Maternal Grandmother Alzheimer's Disease Maternal Grandfather No Known Problems Paternal Grandmother No Known Problems Paternal Grandfather Allergies Daughter Anesthesia Problems No Family History Social History Tobacco Use Smoking status: Former Smoker Packs/day: 0.50 Years: 10.00 Pack years: 5.00 Types: Cigarettes Quit date: 10/20/2016 Years since quittin.4 Smokeless tobacco: Never Used Vaping Use Vaping Use: Never used Substance Use Topics Alcohol use: No Drug use: No Prior to Admission medications as of 04/12/22 1556 Medication Sig Last Dose Taking finasteride (PROPECIA,PROSCAR) 1 mg tablet Take 1 tablet by mouth once daily. Taking Yes levothyroxine (SYNTHROID) 25 mcg tablet Take 1 tablet by mouth once daily. Taking Yes spironolactone (ALDACTONE) 50 mg tablet Take 1 tablet by mouth twice daily. Taking Yes estradiol (ESTRACE) 2 mg tablet Take 1 tablet by mouth three times daily. Taking Yes fluvoxaMINE (LUVOX) 100 mg tablet take 1 capsule by mouth every morning Taking Yes MULTIVITAMIN/IRON/FOLIC ACID (DAILY MULTI ORAL) Take 1 tablet by mouth once daily. Taking Yes No medication comments found. ALLERGIES Allergen Reactions Dexamethasone Swelling Hydrocodone Mental Status Change, Other: See Comments hallucinations Objective PHYSICAL EXAM: General: alert and oriented and healthy appearance. Pertinent negatives noted - not distressed. Skin: normal color, no rash or lesions. HEENT: pupils equal round and pupils reactive to light. Pertinent negatives noted - no carotid bruit. Cardiovascular: regular rate and rhythm, normal S1 and S2, no rub, murmurs, or gallop. Respiratory: normal breath sounds, no wheezes or crackles. No chest wall deformity or tenderness. Abdomen: soft. Pertinent negatives noted - no hernia, no mass, not rigid and not tender. Extremities: no deformity, no edema or tenderness, no joint swelling or clubbing. Neurological: normal cognition and motor skills. Gait normal. No weakness or sensory deficit. PAIN ASSESSMENT: VITALS: BP 118/90 Pulse 85 Temp (Src) 96.9 (Temporal) Resp 16 Ht 5' 6 (1.68m) Wt 174 lb (78.9kg) SpO2 96% BMI 28.10 kg/(m^2). Diagnostic tests reviewed for today's visit: Lab Value Units Date High Low HB No results within date range. HCT No results within date range. WBC No results within date range. PLT No results within date range. NA No results within date range. K No results within date range. GLUC No results within date range. BUN No results within date range. CREAT No results within date range. PTSEC No results within date range. INR No results within date range. APTT No results within date range. ALT No results within date range. AST No results within date range. TBILI No results within date range. TSH No results within date range. Lab Value Units Date High Low HCGQT No results within date range. UHCG No results within date range. HCG, BODY* No results within date range. Lab Value Units Date High Low ABORHD No results within date range. ABSCREEN No results within date range. Hemoglobin A1C (%) Date Value 07/20/2021 5.3 07/23/2019 5.3 HBA1C, Bushra (%) Date Value 09/13/2008 5.9 No results found for this or any previous visit (from the past 8760 hour(s)). No results found for this or any previous visit (from the past 96038 hour(s)). 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 S/p feminization 07/2021, scheduled for further feminization and septoplasty. Taking Estradiol, Finasteride and Spironolactone. Hypothyroidism Assessment: Compliant with Rx. Anxiety and depression Assessment: Currently stable on Rx, following with PCP. [place] Activity Status Index: METS: Climb a flight of stairs or walk up a hill (5.50 METs) Participate in moderate recreational activites, such as golf, bowling, dancing, doubles tennis, or throwing a baseball or football (6.00 METs) DASI Score: 11.5 Patient denies any chest pain or undue shortness of breath with the above physical activity. Clinical Frailty Scale: 3. Well, with treated comorbid disease STOP-Bang Score: Snores loudly Male patient Denies feeling tired, fatigued, or sleepy during the daytime Has not been observed to stop breathing or choking/gasping during sleep Denies having high blood pressure BMI less than or equal to 35 kg/m^2 Patient 50 years old or younger Does not have a large neck STOP-Bang Score: 2 [id number] Score: Age: <65 Sex: male CHF history: No Hypertension history: No Stroke/TIA/thromboembolism history: No Vascular disease history: No Diabetes history: No [id number] Score: 0 ASA Class: 2 ANESTHESIA FINDINGS: Intubation History: No history of difficult intubation. No abnormal airway history Significant Anesthesia Considerations: none Airway History: No history of difficult airway No abnormal airway history I - PHYSICAL EVALUATION AIRWAY Tracheostomy tube not present Mallampati: II. TM distance: >3 FB. Neck ROM: full ROM without neurological symptoms. Mouth opening: adequate. Short neck: no. Thick neck: no DENTAL Dental findings: missing tooth/teeth. II - ANESTHESIA PLAN ASA Score: 2 Anesthetic Plan: general Prepared for Surgery: optimally prepared for surgery, pending (see comment). Labs ordered by surgeon LOR castrejon scheduled for May 08, 2022 CONSULTS: Patient does not require consults for optimization at this time Planned Anesthetic: general The Following Tests/Procedures Have Been Initiated: No orders of the defined types were placed in this encounter. Instructions Given to Patient: Instructions located in the after visit summary. Patient given verbal and written preop instructions and voices comprehension and compliance. SIGNATURE: Clair Maria APRN.CNP PATIENT NAME: Segundo Quezada DATE: April 12, 2022 TIME: 11:00 AM PAGER/CONTACT #: documented in this encounterOhiohealth Arthur [facility]07-01-2022 Instructions* Patient Instructions* Clair Maria APRN.CNP - 04/12/2022 3:40 PM EDT PATIENT PREOPERATIVE INSTRUCTIONS Navneet Dunham MD has scheduled you for your procedure at this surgery center: [facility] Scheduling Office: [phone] --[address] [place] [address]. Please read below carefully for your personalized instructions. Dietary Restrictions: - No solid food after midnight. - You may have 12 ounces of clear liquids (water, clear juices such as apple juice or gatorade, carbonated beverages, clear tea, black coffee, jello) until 2 hours before scheduled arrival at facility. - Do not drink any alcohol after midnight the night before your surgery. Medications: Unless instructed differently below, stay on all of your medications until your surgery. Approved medications to take the morning of surgery with a sip of water: Luvox and Synthroid If you start any new medications after today's visit, please contact the surgeon's office. Blood Thinning Medications: - Stop NSAIDS (Ibuprofen, Advil, Aleve, Motrin, Celebrex, Mobic, etc.) 7 days before surgery, as directed by your surgeon. - Stop Aspirin 7 days before surgery, as directed by your surgeon. - Stop Vitamin E, ALL multi-vitamins, herbals and dietary supplements 7 days before surgery. - You may take Tylenol (Acetaminophen) or any of your pain medications that do not contain aspirin or NSAIDS as needed. Important Reminders: - Candy, mints, and tobacco products are NOT permitted the morning of surgery. - Hearing aids, dentures and glasses may be worn the morning of surgery. - NO jewelry, body piercings, makeup, hairpins or contacts are to be worn the day of surgery. If you develop symptoms such as a fever, cold, or flu, or have other changes to your health within TWO DAYS of scheduled surgery or the morning of surgery, please contact the surgery center above. Personal Belongings: -Please have photo ID and insurance cards. -If you do not have a copy of advance directives on file with us, please bring a copy with you on the day of surgery. - Leave ALL valuables and money at home or with family members. Arrival Time for Surgery: - To obtain your arrival time for surgery, call your physician's office the day before your surgery. - If your surgery is scheduled for Friday, call the Friday before. Your surgeon s certified fraud examiner will tell you what time to call the office. - If you have not reached the departmental certified fraud examiner by 5 P.M., call [phone] after 5 P.M. the day before your surgery. Please be aware that emergency situations arise, which may delay or change your surgical time. If this happens, we will notify you as soon as possible and regret any inconvenience. If you already have an Advance Directive, please fax a copy to [phone] or email to for it to be added to your chart. If you do not have an Advance Directive, you can find the appropriate form and more information at [email or web address]. We recommend that youcomplete the Advance Directive form found on the website and bring it with you the day of your surgery. It can be witnessed and scanned into your chart that day. Clair Maria APRN.CNP documented in this encounterOhiohealth Arthur [facility]06-28-2022 Miscellaneous Notes* Telephone Encounter - Mary Ann Dominguez MD - 04/09/2022 10:07 AM EDT The following approved medication requests have been transmitted electronically. Signed Prescriptions Disp Refills finasteride (PROPECIA,PROSCAR) 1 mg tablet 30 tablet 5 Sig: Take 1 tablet by mouth once daily. KRISTEN: No Authorizing Provider: MARY ANN DOMINGUEZ MD * Telephone Encounter - Yina Madsen MA - 04/09/2022 8:44 AM EDT pcp out Patient requests via MyChart refills as follows: Pending Prescriptions Disp Refills FINASTERIDE 1 MG TABLET 30 tablet 5 Sig: Take 1 tablet by mouth once daily. KRISTEN: No Please review and advise. Yina Madsen MA documented in this encounterOhiohealth Arthur [facility]06-13-2022 Instructions* Patient Instructions* Tammy Newton RN - 03/25/2022 3:19 PM EDT Pre op checklist and instructions: Adults Surgery date: 05/10/2022 The following is a list of things needed in order to have surgery. If you have any questions about any of the items not being completed prior to the day of surgery, please call our office at [phone]. You will need: - An informed consent- signed in the office by you and surgeon - A history and physical within 30 days of the surgery date (done by your primary care doctor or IMPACT- a doctor at [facility]) Please fax a copy of your H&P if done by your PCP([phone]) Please bring a copy on the day of surgery if filled in by your primary care physisican - COVID test (this test needs to be done within 3 days from the date of the surgery otherwise the surgery will be cancelled. Better if done within the [facility] system. Our schedulers will getin contact with you to book this test, which is a Drive-thru testing and there are different locations (Central, East. West and South). If 4 days before the surgery this test hasn't been scheduled yet please call [phone]. - Any additional consults as determined by your surgeon based on your health (please call the Appointment Center open 05/05 at [phone] or get in contact with our schedulers at [phone] to schedule the appointments. If you need to book radiology investigations (CT scan, MRI, ultrasound, etc...) please call [phone]. All the orders will be already in. - Labs (you can go directly to the 1st floor) - CXR (you can go directly to the 2nd floor) - EKG (book this at the desk and then go to the 1st floor) - Please register with [employer] at the TARIFF SUPERVISOR, this will be very helpful before and after the surgery for communications. The surgery will take place at: - MAIN CAMPUS: [facility] surgery center is located on the corner of [address] There is a parking garage attached to the building that you will park at. The address to the building is [address] [place] [address]. The phone number to the surgery center is [phone]. The day before surgery our certified fraud examiner will call you with the information regarding the time of your surgery. If you have not received a call from us by 3 pm the day before your scheduled surgery, please call [phone] and let them know you have not gotten your time for surgery. Please refer to our website for further information ([email or web address]). DO NOT EAT OR DRINK ANYTHING AFTER MIDNIGHT THE NIGHT BEFORE YOUR SCHEDULED SURGERY! This includes water, hard candy, and gum. o Let your surgeon know if you are on any blood thinners (Ex: aspirin, Coumadin, Plavix, Pradaxa, Apixiban, Xarelto) at least 2 weeks before your surgery. The physician that ordered these medicationsshould confirm that you can stop them and clear you for the surgery. Failure to do so can lead to acancelled surgery and/or complications during and after surgery o Please leave all valuables at home the day of surgery. DO NOT wear any jewelry, makeup, body piercings, nail nepalese, or hairpins o Call the office with any questions about what medications are safe to take before surgery. o Do not smoke for 6-8 (ideally 12) weeks prior to surgery. Do not use products containing nicotinesuch as the patch or gum. Smoking will increase your risk for post-operative complications such as infection o If you are having outpatient surgery you WILL NOT be permitted to drive, take a cab, or bus home.If you do not have someone to drive you home, your surgery will be cancelled o Do not plan anything for the day of surgery. Plan on being here all day long as there are unpredictable delays occurring every day. FAILURE TO FOLLOW THESE INSTRUCTIONS COULD LEAD TO CANCELLATION OF SCHEDULED SURGERY If you have any questions or are unsure of the above instructions, please do not hesitate to ask. We know how stressful the day of surgery can be without a list of things to follow! We look forward to seeing you documented in this encounterOhiohealth Arthur [facility]06-13-2022 History of Present illness Narrative* Navneet Dunham MD - 03/25/2022 2:49 PM EDT Images from the original note were not included. FACIAL FEMINIZATION EVALUATION CC: Segundo Quezada is a 41 year old patient that presents today for facial feminization. She is s/p bilateral mandibular angle osteotomy and reshaping of the ramus by osseous genioplasty and placement of bilateral silicone cheek implants on 07/27/2021. She reports the pain is very minimal. Denies signs of infection. She is happy with the results. She is here to discuss further facial feminization, recently denied by insurance for septorhinoplasty, forehead contouring, and browlift. She has already paid for these procedures. HPI: Pt c/o Gender Dysphoria Mental Health Provider:Carolyn Roberts... Letters of Support:..yes, scanned in [employer].... Hormone Therapy: yes [x] no [] ..... Months ..2.. 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 Pronouns:...she..... Time since MTF Transition:...2 years..... Previous Facial Surgery:...yes..... Patient Facial Concerns:.... 1. ..forehead.. 2. ..nose.. 3. .... YES NO Difficulty breathing through your nose [x] [] Worse: [x]Right []Left []Both Mouth breather [x] [] Sore throats and dry chapped lips in the morning as a result of mouth breathing [x] [] Sinus headaches [] [x] Harder to breathe through your nose when lying down [] [x] Necessary to prop head up on more than one pillow [] [x] Wake up at night due to difficulty breathing through your nose [] [x] Breathing problems limit participation in activities such as running or sports [] [x] Interfere with your daily function or job performance [] [x] Previous nasal trauma [] [x] Prior nasal surgery [] [x] []open []closed []septoplasty []rhinoplasty []septorhinoplasty when.... Evaluation by allergy doctor for treatment of the breathing problem through nose [] [x] Treatment was advised [] [x] What........ Any benefit []No []Yes Allergies or medications that cause nasal obstruction [] [x] Do you use any nasal irrigations or sprays, vaporizer or humidifier [] [x] []Nasal irrigations or sprays []Vaporizer []Humidifier Breathe Right Nasal Strips used [] [] Helpful []No []Yes Snoring [x] [] Previous sleep study [] [x] Obstructive Sleep Apnea [] [x] []Mild []Moderate []Severe AHI:............ STOP BANG Questionnaire 3 or more is considered high pretest probability with 90% and 93% sensitivity/specificity to correlated with AHI > 15 (moderate range QUYNH or higher) on a sleep study. Yes/No with Yes = 1 and No = 0 S Snoring loudly: [x] T Tired, fatigue or sleepy : [] O Observed apnea stopping to breath/choking gasping: [] P High BP or on medications: [] B BMI > 35: [] A Age > 50: [] N Neck size > 16 in. for females/17 in. for males: [x] G Gender male: [x] PMH: PAST MEDICAL HISTORY Diagnosis Date Chronic depressive personality disorder Former smoker 07/17/2021 Gender dysphoria 07/17/2021 Generalized anxiety disorder Obesity 07/17/2021 Tobacco use disorder PSH: PAST SURGICAL HISTORY Procedure Laterality Date NONE Meds: Current Outpatient Medications on File Prior to Visit Medication Sig finasteride (PROPECIA,PROSCAR) 1 mg tablet Take 1 tablet by mouth once daily. levothyroxine (SYNTHROID) 25 mcg tablet Take 1 tablet by mouth once daily. ondansetron orally disintegrating (ZOFRAN ODT) 8 mg disintegrating tablet Take 1 tablet by mouth every 8 hours as needed for nausea/vomiting. spironolactone (ALDACTONE) 50 mg tablet take 1 tablet by mouth twice a day estradiol (ESTRACE) 2 mg tablet take 1 tablet by mouth three times a day fluvoxaMINE (LUVOX) 100 mg tablet take 1 tablet by mouth every morning MULTIVITAMIN/IRON/FOLIC ACID (DAILY MULTI ORAL) Take 1 tablet by mouth once daily. No current facility-administered medications on file prior to visit. Allergies: ALLERGIES Allergen Reactions Dexamethasone Swelling Hydrocodone Mental Status Change, Other: See Comments hallucinations Hemoglobin A1C (%) Date Value 07/20/2021 5.3 07/23/2019 5.3 HBA1C, Bushra (%) Date Value 09/13/2008 5.9 Last 10 Encounter BP Readings: Date: BP: 11/13/2021 111/95 08/13/2021 107/64 08/06/2021 115/66 07/31/2021 99/60 07/17/2021 134/73 07/10/2021 135/76 06/28/2021 115/62 06/11/2021 128/72 05/15/2021 149/80 12/24/2019 117/71 CBC Latest Ref Rng & Units 07/10/2021 07/20/2021 07/27/2021 WBC 3.70 - 11.00 k/uL 8.22 8.53 19.85(H) RBC 4.20 - 6.00 m/uL 4.28 4.08(L) 3.89(L) HEMOGLOBIN 13.0 - 17.0 g/dL 13.6 13.3 12.1(L) HEMOGLOBIN, BUSHRA 14.0 - 18.0 g/dL - - - HEMATOCRIT 39.0 - 51.0 % 38.7(L) 37.2(L) 35.8(L) MCV 80.0 - 100.0 fL 90.4 91.2 92.0 MCV, BUSHRA 80 - 94 fL - - - MCH 26.0 - 34.0 pG 31.8 32.6 31.1 MCH, BUSHRA 27 - 31 pg - - - MCHC 30.5 - 36.0 g/dL 35.1 35.8 33.8 MCHC, BUSHRA 33 - 37 g/dL - - - RDW, BUSHRA 11.5 - 14.5 % - - - RDW-CV 11.5 - 15.0 % 11.9 11.9 12.0 PLATELETS 150 - 400 k/uL 230 205 186 MPV 9.0 - 12.7 fL 10.1 11.0 9.9 NEUT%, BUSHRA 42.2 - 75.2 % - - - MONO%, BUSHRA 1.7 - 9.3 % - - - EOS%, BUSHRA 0.0 - 6.0 % - - - BASO% % 0.5 0.6 - BASO%, BUSHRA 0.0 - 2.0 % - - - ABS NEUT (ANC) 1.45 - 7.50 k/uL 5.06 5.48 - ABS NEUT, BUSHRA 2.0 - 8.1 k/uL - - - ABS LYMP, BUSHRA 1.0 - 5.5 k/uL - - - ABS LYMPH 1.00 - 4.00 k/uL 2.54 2.42 - ABS MONO <0.87 k/uL 0.51 0.52 - ABS MONO, BUSHRA 0.1 - 1.0 k/uL - - - ABS EOS, BUSHRA 0.0 - 0.2 k/uL - - - ABS EOSIN <0.46 k/uL 0.07 0.04 - ABS BASO <0.11 k/uL 0.04 0.05 - ABS BASO, BUSHRA 0.0 - 0.1 k/uL - - - DIFF TYPE - Auto Diff Auto Diff - CMP Latest Ref Rng & Units 04/11/2021 07/10/2021 07/20/2021 SODIUM 136 - 144 mmol/L 139 138 138 SODIUM, BUSHRA 136 - 145 mmol/L - - - SODIUM, BUSHRA 136 - 145 mmol/L - - - POTASSIUM 3.7 - 5.1 mmol/L 3.7 3.9 4.1 POTASSIUM, BUSHRA 3.5 - 5.1 mmol/L - - - CHLORIDE 97 - 105 mmol/L 100 103 100 CHLORIDE, BUSHRA 98 - 107 mmol/L - - - CO2 22 - 30 mmol/L 25 23 25 CO2, BUSHRA 21.0 - 32.0 mmol/L - - - GLUCOSE 74 - 99 mg/dL 89 87 88 GLUCOSE, BUSHRA 70 - 99 mg/dL - - - BUN 9 - 24 mg/dL 11 12 16 BUN, BUSHRA 7 - 18 mg/dL - - - CREATININE 0.73 - 1.22 mg/dL 0.69(L) 0.61(L) 0.64(L) CREATININE, BUSHRA 0.8 - 1.3 mg/dL - - - EGFR-ALL OTHER RACES . >60 >60 >60 EGFR- - >60 >60 >60 PROTEIN, TOTAL 6.3 - 8.0 g/dL - - 7.9 TOTAL PROTEIN, BUSHRA 6.4 - 8.2 g/dL - - - ALBUMIN 3.9 - 4.9 g/dL - - 4.9 ALBUMIN, BUSHRA 3.4 - 5.0 g/dL - - - CALCIUM, BUSHRA 8.5 - 10.1 mg/dL - - - CALCIUM, TOTAL 8.5 - 10.2 mg/dL 9.6 9.3 10.1 BILIRUBIN, TOTAL 0.2 - 1.3 mg/dL - - 0.3 AST 14 - 40 U/L - - 22 AST, BUSHRA 15 - 37 U/L - - - ALT 10 - 54 U/L - - 25 ALT, BUSHRA 30 - 65 U/L - - - ALKALINE PHOSPHATASE 38 - 113 U/L - - 57 YES NO Smoking, Vaping and/or Nicotine use [] [x] Cigarettes/day..... Cartridges/ day.... ...... ...... Diabetes [] [x] []Type 1? []Type 2 ?Last A1c:..... Systemic inflammatory diseases [] [x] []RA []Gout []Other... Hypertension [] [x] Meds:....... Heart disease or pacemaker [] [x] ............ Family history blood clots [] [x] ............ Personal history blood clots [] [x] ............ Anticoagulation (aspirin, coumadin, xarelto,etc) [] [x] What:........... Reason:....... Immunosuppressants (steroid, biologic meds infusion, etc) [] [x] What:........... Reason:....... Hormones ( control, hormone replacement therapy) [] [x] What:........... Pt AGAINST blood transfusion? 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 []Patient is retired []Patient is on disability EXAM: BP 126/73 Pulse 67 Temp 37.1 C (98.8 F) Estimated body surface area is 1.89 meters squared as calculated from the following: Height as of 11/13/21: 167.6 cm (5' 6). Weight as of 11/26/21: 76.4 kg (168 lb 6.4 oz). There is no height or weight on file to calculate BMI. M-shaped hairline FOREHEAD EXAM: Forehead height (trichion to high point of brow): ....5.5....cm Intercanthal distance: : .....narrow, 25...mm [x]Normal []Flat []Curved [x]Prominent [x]Recessed temporal hairline NASAL EXAM: Frontal View Facial proportions UFH []Equal []Doyline []Longer 5.5 MFH []Equal []Doyline []Longer 6.5 LFH []Equal []Doyline []Longer 7 Skin type Mcneal [] I Pale white skin, blue/green eyes, blond/red hair []II Fair skin, blue eyes [x]III Darker white skin []IV Light brown skin []V Brown skin [] Dark brown or black skin Skin quality []Thin [x]Normal []Sebaceous Symmetry and nasal deviation [x]Midline []C []Reverse-C []S []S-shaped deviation Bony vault [x]Normal []Narrow [x]Wide [x]Straight []Deviated right []Deviated left [x]Symmetrical []Asymmetrical []short nasal bones [x]long nasal bones Mid vault [x]Normal []Narrow []Wide [x]Straight []Deviated right []Deviated left []Collapsed []inverted-V deformity Dorsal aesthetic lines []Straight []Symmetrical [x]Asymmetrical [x]well-defined []ill-defined []Narrow [x]wide Nasal tip [x]Straight []Deviated right []Deviated left [][place] [x]Bulbous []Boxy []Pinched Supratip []Break []Straight [x]Fullness [][place] Tip projection [x]Normal (50-60% from subnasale) []Over projected []under projected Tip rotation [x]Normal (95-110 degrees) []Over-rotated []under-rotated Tmq-ilucuety-dpvyct []Normal [x]Wide []Narrow Infratip lobule [x]Normal (30-45 degrees) []Hanging []Retracted Alar rims []Normal Gull-wing shaped facets []Notching [x]Retraction Alar base width- 35mm []As intercanthal distance []Narrower than intercanthal distance [x]Wider than intercanthal distance Lateral View Nasofrontal angle [x]Obtuse (normal:115-135 degrees) []Acute [x]Normal radix []high radix []low radix Nasal length [x]Normal []Long []Short Dorsum []Smooth [x]Hump []scooped out []Saddle deformity Alar-columellar relationship [x]Normal []Hanging ala []retracted ala []Hanging columella []retracted columella Basal View Nasal projection [x]Normal []Over-projected []under-projected Columella to lobule ratio [x] Normal 2:1 []Columella longer []Lobule longer Nostril []Normal [x]Symmetrical []Asymmetrical []Long []Short Columella []Normal []Septal tilt [x]flaring of medial crura Lateral Alar flaring [x]Yes []No Functional exam YES NO Anterior septal perforation [] [x] Septal deviation [] [x] []High []Caudal []To the right []To the left []C []Reverse C []S []Irregular Septal spur [] [x] []Right []Left []Both Maxillary crest spur [] [x] []Right []Left []Both Turbinate hypertrophy [] [x] []Right []Left []Both Internal nasal valve collapse on inspiration [] [] []Right []Left []Both Edgar test positive [x] [] []Right []Left [x]Both Lateral nasal wall collapse on inspiration [x] [] []Right []Left [x]Both External nasal valve collapse on inspiration [x] [] []Right []Left [x]Both Problems breathing out [] [] []Right []Left []Both Scars [] [] Location.... CT SCAN Forehead bossing and prominent frontal sinus. Nasal septal deviation and nasal spur contacting the lateral nasal wall/inferior turbinate. Assessment [x]Gender Dysphoria [x]obstructive sleep apnea and breathing difficulty []Facial Asymmetry []TMJ []Septal deviation []Nasal deviation []Nasal trauma []Collapse internal nasal valve [x]Collapse external nasal valve Plan [] Nasal scope [] Facial CT scan [] Facial MRI Planned procedure(s): [x]Functional Septoplasty []Turbinate outfracture []Turbinoplasty []Nasal vestibular stenosis repair []Rhinoplasty[]Septorhinoplasty []Cheek Augmentation [x]Forehead Reduction [x]Hairline Advancement [x]Browlift []Genioplasty []LeForte Plan for surgery 05/10 Pre-op labs and pre-op COVID test ordered Stop estrogen at least 2 weeks prior to surgery Discussed surgical management and surgical options. I have discussed the procedure in detail with the patient. Risks and benefits to surgery discussed including possible complications. The patient agrees to proceed with surgery and an informed consent was signed. The patient is seen and examined by Dr. Brooks and the following reflects his/her service. Maraibedstephen Newton RN I agree with the Chief Complaint, ROS, and Past Histories independently gathered by the clinical technical support internship/resident and the remaining scribed note accurately describes my personal service to the patient. 30 minutes of the total visit were spent face to face with patient. Greater than 50% of the time was spent for counseling and coordination of care, discussing treatment options and recommendations. Navneet Dunham MD March 25, 2022 5:47 PM This note was generated with voice recognition software and may contain errors, including spelling,grammar, syntax and misrecognition of what was dictated, that are not fully corrected. documented in this encounterOhiohealth Arthur [facility]05-16-2022 Miscellaneous Notes* Telephone Encounter - WENDY Aldana - 02/25/2022 10:13 AM EDT Last appointment within department: 09/04/21 Next appointment with department: Visit date not found Pharmacy escripts requesting the following refill: Pending Prescriptions Disp Refills LEVOTHYROXINE 25 MCG TABLET 90 tablet 0 Sig: Take 1 tablet by mouth once daily. KRISTEN: Yes Please review and advise. WENDY Aldana documented in this encounterOhiohealth Arthur [facility]03-24-2022 Miscellaneous Notes* Telephone Encounter - Maia Lester RN - 01/03/2022 10:11 AM EDT [facility] sent to Patient with instructions to schedule a follow up appointment for gender care with Dr. Schilling or Nurse Practitioner Tania Agudelo. Last visit: 09/04/[address] Schilling with recommendations to follow up around 6 months. Future labs have been ordered documented in this encounterOhiohealth Arthur [facility]08-19-2021 History of Present illness Narrative* Rianna Pereyra Tech - 05/31/2021 1:40 PM EDT Radiology Service Progress Note PATIENT NAME: Segundo Quezada DATE OF SERVICE: May 31, 2021 TIME: 2:12 PM PATIENT IDENTITY VERIFICATION COMPLETED USING TWO (2) IDENTIFIERS: Name and Date of confirmedby patient verbally. FALL SCREENING: Has the patient had 2 falls in the last year or 1 fall with injury or currently using an Ambulatory Assistive Device (Walker, Cane, Wheelchair, Crutches, etc.)? No PATIENT GENDER DATA: Female. status: : No status: NO. PATIENT RELEVANT IMPLANT DATA REVIEWED: Yes RADIOLOGY DEPARTMENT: CT; Exam(s) Completed: Face/Mandible PERIPHERAL IV DATA: Not applicable SIGNED BY: Ashley Fuentes May 31, 2021 2:12 PM documented in this encounterOhiohealth Arthur [facility]01-29-2021 History of Past illness Narrative* Problem Noted Date Resolved Date Drug reaction 11/10/2020 04/12/2022 Cellulitis and abscess of unspecified site 02/1308/10/2019 documented as of this encounter (statuses as of 04/12/2022) [facility] History of Past illness Narrative* Problem Noted Date Resolved Date Drug reaction 11/10/2020 04/12/2022 Cellulitis and abscess of unspecified site 02/1308/10/2019 documented as of this encounter (statuses as of 04/16/2022) [facility] History of Past illness Narrative* Problem Noted Date Resolved Date Drug reaction 11/10/2020 04/12/2022 Cellulitis and abscess of unspecified site 02/1308/10/2019 documented as of this encounter (statuses as of 04/16/2022) [facility] of Past illness Narrative* Problem Noted Date Resolved Date Drug reaction 11/10/2020 04/12/2022 Cellulitis and abscess of unspecified site 02/1308/10/2019 documented as of this encounter (statuses as of 04/22/2022) [facility] of Past illness Narrative* Problem Noted Date Resolved Date Drug reaction 11/10/2020 04/12/2022 Cellulitis and abscess of unspecified site 02/1308/10/2019 documented as of this encounter (statuses as of 04/22/2022) [facility] of Past illness Narrative* Problem Noted Date Resolved Date Drug reaction 11/10/2020 04/12/2022 Cellulitis and abscess of unspecified site 02/1308/10/2019 documented as of this encounter (statuses as of 05/12/2022) [facility] of Past illness Narrative* Problem Noted Date Resolved Date Drug reaction 11/10/2020 04/12/2022 Cellulitis and abscess of unspecified site 02/1308/10/2019 documented as of this encounter (statuses as of 05/13/2022) [address]29-2021 History of Past illness Narrative* Problem Noted Date Resolved Date Drug reaction 11/10/2020 04/12/2022 Cellulitis and abscess of unspecified site 02/1308/10/2019 documented as of this encounter (statuses as of 05/14/2022) [address]29-2021 History of Past illness Narrative* Problem Noted Date Resolved Date Drug reaction 11/10/2020 04/12/2022 Cellulitis and abscess of unspecified site 02/1308/10/2019 documented as of this encounter (statuses as of 05/14/2022) [address]29-2021 History of Past illness Narrative* Problem Noted Date Resolved Date Drug reaction 11/10/2020 04/12/2022 Cellulitis and abscess of unspecified site 02/1308/10/2019 documented as of this encounter (statuses as of 05/15/2022) [address]29-2021 History of Past illness Narrative* Problem Noted Date Resolved Date Drug reaction 11/10/2020 04/12/2022 Cellulitis and abscess of unspecified site 02/1308/10/2019 documented as of this encounter (statuses as of 05/16/2022) [address]29-2021 History of Past illness Narrative* Problem Noted Date Resolved Date Drug reaction 11/10/2020 04/12/2022 Cellulitis and abscess of unspecified site 02/1308/10/2019 documented as of this encounter (statuses as of 05/16/2022) [address]29-2021 History of Past illness Narrative* Problem Noted Date Resolved Date Drug reaction 11/10/2020 04/12/2022 Cellulitis and abscess of unspecified site 02/1308/10/2019 documented as of this encounter (statuses as of 05/21/2022) [address]29-2021 History of Past illness Narrative* Problem Noted Date Resolved Date Drug reaction 11/10/2020 04/12/2022 Cellulitis and abscess of unspecified site 02/1308/10/2019 documented as of this encounter (statuses as of 05/23/2022) [address]29-2021 History of Past illness Narrative* Problem Noted Date Resolved Date Drug reaction 11/10/2020 04/12/2022 Cellulitis and abscess of unspecified site 02/1308/10/2019 documented as of this encounter (statuses as of 05/27/2022) [address]29-2021 History of Past illness Narrative* Problem Noted Date Resolved Date Drug reaction 11/10/2020 04/12/2022 Cellulitis and abscess of unspecified site 02/1308/10/2019 documented as of this encounter (statuses as of 05/27/2022) [address]29-2021 History of Past illness Narrative* Problem Noted Date Resolved Date Drug reaction 11/10/2020 04/12/2022 Cellulitis and abscess of unspecified site 02/1308/10/2019 documented as of this encounter (statuses as of 06/10/2022) [address]29-2021 History of Past illness Narrative* Problem Noted Date Resolved Date Drug reaction 11/10/2020 04/12/2022 Cellulitis and abscess of unspecified site 02/1308/10/2019 documented as of this encounter (statuses as of 06/11/2022) [address]29-2021 History of Past illness Narrative* Problem Noted Date Resolved Date Drug reaction 11/10/2020 04/12/2022 Cellulitis and abscess of unspecified site 02/1308/10/2019 documented as of this encounter (statuses as of 06/24/2022) [address]29-2021 History of Past illness Narrative* Problem Noted Date Resolved Date Drug reaction 11/10/2020 04/12/2022 Cellulitis and abscess of unspecified site 02/1308/10/2019 documented as of this encounter (statuses as of 07/01/2022) [address]29-2021 History of Past illness Narrative* Problem Noted Date Resolved Date Drug reaction 11/10/2020 04/12/2022 Cellulitis and abscess of unspecified site 02/1308/10/2019 documented as of this encounter (statuses as of 07/09/2022) [address]29-2021 History of Past illness Narrative* Problem Noted Date Resolved Date Drug reaction 11/10/2020 04/12/2022 Cellulitis and abscess of unspecified site 02/1308/10/2019 documented as of this encounter (statuses as of 07/09/2022) [address]29-2021 History of Past illness Narrative* Problem Noted Date Resolved Date Drug reaction 11/10/2020 04/12/2022 Cellulitis and abscess of unspecified site 02/1308/10/2019 documented as of this encounter (statuses as of 08/14/2022) [address]29-2021 History of Past illness Narrative* Problem Noted Date Resolved Date Drug reaction 11/10/2020 04/12/2022 Cellulitis and abscess of unspecified site 02/1308/10/2019 documented as of this encounter (statuses as of 08/28/2022) [address]2021 History of Past illness Narrative* Problem Noted Date Resolved Date Drug reaction 11/10/2020 04/12/2022 Cellulitis and abscess of unspecified site 02/1308/10/2019 documented as of this encounter (statuses as of 08/29/2022) [address]29-2021 History of Past illness Narrative* Problem Noted Date Resolved Date Drug reaction 11/10/2020 04/12/2022 Cellulitis and abscess of unspecified site 02/1308/10/2019 documented as of this encounter (statuses as of 10/21/2022) [address]29-2021 History of Past illness Narrative* Problem Noted Date Resolved Date Drug reaction 11/10/2020 04/12/2022 Cellulitis and abscess of unspecified site 02/1308/10/2019 documented as of this encounter (statuses as of 11/06/2022) [address]29-2021 History of Past illness Narrative* Problem Noted Date Resolved Date Drug reaction 11/10/2020 04/12/2022 Cellulitis and abscess of unspecified site 02/1308/10/2019 documented as of this encounter (statuses as of 11/06/2022) [address]29-2021 History of Past illness Narrative* Problem Noted Date Resolved Date Drug reaction 11/10/2020 04/12/2022 Cellulitis and abscess of unspecified site 02/1308/10/2019 documented as of this encounter (statuses as of 11/22/2022) [address]2021 History of Past illness Narrative* Problem Noted Date Resolved Date Drug reaction 11/10/2020 04/12/2022 Cellulitis and abscess of unspecified site 02/1308/10/2019 documented as of this encounter (statuses as of 12/03/2022) [address]2021 History of Past illness Narrative* Problem Noted Date Resolved Date Drug reaction 11/10/2020 04/12/2022 Cellulitis and abscess of unspecified site 02/1308/10/2019 documented as of this encounter (statuses as of 12/05/2022) [address]29-2021 History of Past illness Narrative* Problem Noted Date Resolved Date Drug reaction 11/10/2020 04/12/2022 Cellulitis and abscess of unspecified site 02/1308/10/2019 documented as of this encounter (statuses as of 12/06/2022) [facility]29-2021 History of Past illness Narrative* Problem Noted Date Resolved Date Drug reaction 11/10/2020 04/12/2022 Cellulitis and abscess of unspecified site 02/1308/10/2019 documented as of this encounter (statuses as of 12/07/2022) [facility]2021 History of Past illness Narrative* Problem Noted Date Resolved Date Drug reaction 11/10/2020 04/12/2022 Cellulitis and abscess of unspecified site 02/1308/10/2019 documented as of this encounter (statuses as of 12/20/2022) [address]29-2021 History of Past illness Narrative* Problem Noted Date Resolved Date Drug reaction 11/10/2020 04/12/2022 Cellulitis and abscess of unspecified site 02/1308/10/2019 documented as of this encounter (statuses as of 01/14/2023) [address]29-2021 History of Past illness Narrative* Problem Noted Date Resolved Date Drug reaction 11/10/2020 04/12/2022 Cellulitis and abscess of unspecified site 02/1308/10/2019 documented as of this encounter (statuses as of 02/04/2023) [address]29-2021 History of Past illness Narrative* Problem Noted Date Resolved Date Drug reaction 11/10/2020 04/12/2022 Cellulitis and abscess of unspecified site 02/1308/10/2019 documented as of this encounter (statuses as of 02/12/2023) [address]29-2021 History of Past illness Narrative* Problem Noted Date Resolved Date Drug reaction 11/10/2020 04/12/2022 Cellulitis and abscess of unspecified site 02/1308/10/2019 documented as of this encounter (statuses as of 02/18/2023) [address]29-2021 History of Past illness Narrative* Problem Noted Date Diagnosed Date Resolved Date Drug reaction 11/10/2020 04/12/2022 Cellulitis and abscess of unspecified site 02/13/2009 08/10/2019 documented as of this encounter (statuses as of 05/01/2023) [facility]29-2021 History of Past illness Narrative* Problem Noted Date Diagnosed Date Resolved Date Drug reaction 11/10/2020 04/12/2022 Cellulitis and abscess of unspecified site 02/13/2009 08/10/2019 documented as of this encounter (statuses as of 05/14/2023) [facility]29-2021 History of Past illness Narrative* Problem Noted Date Diagnosed Date Resolved Date Drug reaction 11/10/2020 04/12/2022 Cellulitis and abscess of unspecified site 02/13/2009 08/10/2019 documented as of this encounter (statuses as of 05/23/2023) [facility]2021 History of Past illness Narrative* Problem Noted Date Diagnosed Date Resolved Date Drug reaction 11/10/2020 04/12/2022 Cellulitis and abscess of unspecified site 02/13/2009 08/10/2019 documented as of this encounter (statuses as of 06/06/2023) [facility]2021 History of Past illness Narrative* Problem Noted Date Diagnosed Date Resolved Date Drug reaction 11/10/2020 04/12/2022 Cellulitis and abscess of unspecified site 02/13/2009 08/10/2019 documented as of this encounter (statuses as of 06/13/2023) [address]29-2021 History of Past illness Narrative* Problem Noted Date Diagnosed Date Resolved Date Drug reaction 11/10/2020 04/12/2022 Cellulitis and abscess of unspecified site 02/13/2009 08/10/2019 documented as of this encounter (statuses as of 06/19/2023) [address]29-2021 History of Past illness Narrative* Problem Noted Date Diagnosed Date Resolved Date Drug reaction 11/10/2020 04/12/2022 Cellulitis and abscess of unspecified site 02/13/2009 08/10/2019 documented as of this encounter (statuses as of 06/27/2023) [address]29-2021 History of Past illness Narrative* Problem Noted Date Diagnosed Date Resolved Date Drug reaction 11/10/2020 04/12/2022 Cellulitis and abscess of unspecified site 02/13/2009 08/10/2019 documented as of this encounter (statuses as of 07/07/2023) [facility]21 History of Past illness Narrative* Problem Noted Date Diagnosed Date Resolved Date Drug reaction 11/10/2020 04/12/2022 Cellulitis and abscess of unspecified site 02/13/2009 08/10/2019 documented as of this encounter (statuses as of 08/17/2023) [facility]2021 History of Past illness Narrative* Problem Noted Date Diagnosed Date Resolved Date Drug reaction 11/10/2020 04/12/2022 Cellulitis and abscess of unspecified site 02/13/2009 08/10/2019 documented as of this encounter (statuses as of 08/19/2023) [facility]2021 History of Past illness Narrative* Problem Noted Date Diagnosed Date Resolved Date Drug reaction 11/10/2020 04/12/2022 Cellulitis and abscess of unspecified site 02/13/2009 08/10/2019 documented as of this encounter (statuses as of 08/20/2023) [facility]21 History of Past illness Narrative* Problem Noted Date Diagnosed Date Resolved Date Drug reaction 11/10/2020 04/12/2022 Cellulitis and abscess of unspecified site 02/13/2009 08/10/2019 documented as of this encounter (statuses as of 08/27/2023) [facility]2021 History of Past illness Narrative* Problem Noted Date Diagnosed Date Resolved Date Drug reaction 11/10/2020 04/12/2022 Cellulitis and abscess of unspecified site 02/13/2009 08/10/2019 documented as of this encounter (statuses as of 09/03/2023) [facility]21 History of Past illness Narrative* Problem Noted Date Diagnosed Date Resolved Date Drug reaction 11/10/2020 04/12/2022 Cellulitis and abscess of unspecified site 02/13/2009 08/10/2019 documented as of this encounter (statuses as of 09/10/2023) [facility]21 History of Past illness Narrative* Problem Noted Date Diagnosed Date Resolved Date Drug reaction 11/10/2020 04/12/2022 Cellulitis and abscess of unspecified site 02/13/2009 08/10/2019 documented as of this encounter (statuses as of 09/12/2023) [facility] History of Past illness Narrative* Problem Noted Date Diagnosed Date Resolved Date Drug reaction 11/10/2020 04/12/2022 Cellulitis and abscess of unspecified site 02/13/2009 08/10/2019 documented as of this encounter (statuses as of 09/25/2023) [facility]21 History of Past illness Narrative* Problem Noted Date Diagnosed Date Resolved Date Drug reaction 11/10/2020 04/12/2022 Cellulitis and abscess of unspecified site 02/13/2009 08/10/2019 documented as of this encounter (statuses as of 12/01/2023) [facility] History of Past illness Narrative* Problem Noted Date Diagnosed Date Resolved Date Drug reaction 11/10/2020 04/12/2022 Cellulitis and abscess of unspecified site 02/13/2009 08/10/2019 documented as of this encounter (statuses as of 12/03/2023) [facility]21 History of Past illness Narrative* Problem Noted Date Diagnosed Date Resolved Date Drug reaction 11/10/2020 04/12/2022 Cellulitis and abscess of unspecified site 02/13/2009 08/10/2019 documented as of this encounter (statuses as of 12/03/2023) [facility]21 History of Past illness Narrative* Problem Noted Date Diagnosed Date Resolved Date Drug reaction 11/10/2020 04/12/2022 Cellulitis and abscess of unspecified site 02/13/2009 08/10/2019 documented as of this encounter (statuses as of 12/10/2023) [facility] History of Past illness Narrative* Problem Noted Date Diagnosed Date Resolved Date Drug reaction 11/10/2020 04/12/2022 Cellulitis and abscess of unspecified site 02/13/2009 08/10/2019 documented as of this encounter (statuses as of 12/10/2023) [facility] History of Past illness Narrative* Problem Noted Date Resolved Date Cellulitis and abscess of unspecified site 02/1308/10/2019 documented as of this encounter (statuses as of 01/03/2022) [facility] History of Past illness Narrative* Problem Noted Date Resolved Date Cellulitis and abscess of unspecified site 02/1308/10/2019 documented as of this encounter (statuses as of 02/25/2022) [facility] History of Past illness Narrative* Problem Noted Date Resolved Date Cellulitis and abscess of unspecified site 02/1308/10/2019 documented as of this encounter (statuses as of 03/25/2022) [facility] History of Past illness Narrative* Problem Noted Date Resolved Date Cellulitis and abscess of unspecified site 02/1308/10/2019 documented as of this encounter (statuses as of 04/09/2022) [facility] Author [facility] February 25, 2023 1:08am Note Date/Time February 25, 2023 12:59 am [facility] Medical Records Department [address] [place] [address] Emergency Department Summary 02/25/23 MR#: [id number] Acct: [id number] Name: SEGUNDO QUEZADA Rep #:[id number] : 1980 42 From: Ankit Malloy DO PCP: JARED SCHILLING Status:REG ER Location: ED HPI History of Present Illness Chief Complaint: Upper Extremity Injury Narrative Narrative: Patient is a [id number] 42-year-old who states that roughly 1 hour prior to arrival she was walking down the stairs with her blind dog when she slipped and fell landing on her left hand/wrist. She states she is unsure if itwas a fall on outstretched hand or flexed up underneath her all she knows is that she landed on it and that it hurt. She denies striking her head or any loss of consciousness denies any blood thinner use or history of bleeding disorder. Over the past hour the wrist has been swollen and painful with motionand with concern for fracture she presents for evaluation. PFSH PFSH Home Medications fluvoxamine 50 mg tablet 150 mg PO QHS 09/16/16 [History Last Taken Unknown] dexamethasone 6 mg tablet 6 mg PO DAILY 5 days 11/01/20 [Rx Last Taken Unknown] ibuprofen 600 mg tablet 600 mg PO Q6H PRN PRN fever or pain #20 tabs 02/11/22 [Rx Last Taken Unknown] tramadol 50 mg tablet 50 mg PO Q8H PRN pain #9 tabs 02/11/22 [Rx Last Taken Unknown] oxycodone-acetaminophen 5 mg-325 mg tablet (Percocet) 1 tab PO Q6H PRN pain 3 days #12 tabs 02/25/23 [Rx Last Taken Unknown] Allergy/AdvReac Type Severity Reaction Status Date / Time hydrocodone AdvReac Other Verified 02/24/23 23:53 oxycodone [Oxycodone] AdvReac Other Verified 02/24/23 23:53 Social History Smoking Status: Never smoker ROS ROS ED Constitutional Constitutional ED: Denies chills or fever(s) Eyes Eyes: Denies change in vision ENT ENT ED: Denies sore throat Cardiovascular Cardiovascular: Denies chest pain Respiratory/Chest Respiratory/Chest: Denies cough or dyspnea Gastrointestinal Gastrointestinal: Denies abdominal pain, diarrhea, nausea or vomiting Genitourinary Genitourinary ED: Denies dysuria Musculoskeletal Musculoskeletal: Reports other Details: Positive left wrist/forearm pain ; Denies back pain or neck pain Integumentary Denies Abrasions or rash Neurologic Neurologic: Denies headache(s), paresthesias or weakness Hematologic/Lymphatic Hematologic/Lymphatic: Denies easy bleeding or easy bruising EXAM Physical Exam Const Vital Signs: 02/24/23 23:52 Temperature 97.9 F Temperature Source Temporal Pulse Rate 78 Respiratory Rate 16 Blood Pressure 144/68 H Blood Pressure Mean 93 Pulse Ox 98 Oxygen Delivery Method Room Air Positive well nourished and well developed General Appearance ED: well developed HEENT HEENT Narrative: Normocephalic atraumatic Eyes PERRL and EOMs intact bilaterally Neck full ROM and supple Neck Narrative: No bony deformity or step-off of the cervical spine no midline pain on palpation Resp normal respiratory effort and clear to auscultation bilaterally Cardio regular rate and regular rhythm Back/Spine Back/Spine Narrative: No bony deformity or step-off of the thoracic or lumbar spine no midline pain with palpation Extremity Extremity Narrative: Left upper extremity is neurovascularly intact; AIN/PIN are intact and normal. Active range of motion is decreased secondary to pain. There is soft tissue swelling and faint ecchymosis along the lateral aspect of the distal third of the forearm near the ulnar styloid. There is pain to palpation at the site. No obvious bony deformity or joint effusion however. No pain in the anatomical snuffbox. Patient has full active range of motion at the elbow joint without any type of pain with palpation. Neuro oriented x3 and CN's II-XII intact bilaterally Sensorium / Orientation: alert Psych mental status grossly normal Skin Skin Narrative: Soft tissue swelling with faint ecchymosis along the lateral aspect of the left distal forearm/wrist as documented above MDM MDM MDM Narrative Medical decision making narrative: Patient presented to the ER with report of mechanical fall and therefore I felt no need for cardiac or syncope work-up. Differential diagnosis includes forearm/wrist contusion versus wrist sprain versus distal ulnar fracture or wrist fracture. X- rays are obtained of the wrist and forearm secondary to this. They revealed no acute fracture dislocation or foreign body. This indicates patient has a wrist sprain and contusion. She was given symptomatic care secondary to this and is otherwise safe for discharge as she is neurovascularly intact without signs of compartment syndrome or neurovascular compromise. History & Record Review Discussion w/independent historian: Patient and Significant other Radiography Diagnostic Testing: Clinical Impression(s) from Imaging Studies Forearm X-Ray 02/25/23 00:25 IMPRESSION: Negative. Electronically Signed: Radha Deng MD at 0:38 EDT , Wrist X-Ray 02/25/23 00:28 IMPRESSION: Negative. Electronically Signed: Radha Deng MD at 0:43 EDT , X-ray of the left forearm and left wrist as interpreted by the emergency medicine physician reveals no acute fracture or dislocation or foreign body or joint effusion. Discharge Plan Triage Chief Complaint: Upper Extremity Injury ED Provider: Ankit Malloy Dx/Rx/DC Orders Clinical Impression: Contusion of left wrist, initial encounter, Left wrist sprain Instructions: Bone Contusion, ED Wrist Sprain Prescriptions: New oxycodone-acetaminophen [Percocet] 5-325 mg tablet 1 tab PO Q6H PRN (Reason: pain) 3 Days Qty: 12 0RF No Action fluvoxamine 50 MG tablet 150 mg PO QHS dexamethasone 6 MG tablet 6 mg PO DAILY 5 Days 0RF tramadol 50 mg tablet 50 mg PO Q8H PRN (Reason: pain) Qty: 9 0RF ibuprofen 600 mg tablet 600 mg PO Q6H PRN PRN (Reason: fever or pain) Qty: 20 0RF Stand Alone Forms: ED Work / School Excuse Primary Care Provider: JARED SCHILLING Referrals: JARED SCHILLING [Other] Activity Restrictions/Additional Instructions: Please wear your Parish wrap for compression and your brace for stabilization/support. Continue to ice the area to reduce pain and speed healing. If you have further concerns or no improvement of symptoms after 1 week please return for repeat evaluation Disposition Disposition: Home, Self Care What to do if you have Problems For any increased pain, shortness of breath, bleeding, nausea or vomiting, chest pain, or any unexpected problems, contact your Primary Care Provider. Call [facility] ([phone]) or report to the closest Emergency Room. Call 911 if necessary. 02/25/23 0108 <Electronically signed by Ankit Malloy DO> Cosigner Signature (if applicable): CC: JARED SCHILLING ~ Signed [facility] Work Phone: Evaluation noteNo assessment information available [facility] Work Phone: Evaluation note* Diagnosis Hypothyroidism, acquired Unspecified hypothyroidism documented in this encounter 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* Diagnosis Preoperative examination- Primary Preoperative examination, unspecified Nasal valve collapse Other diseases of nasal cavity and sinuses Nasal septal deviation Deviated nasal septum 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 Acquired hypothyroidism Unspecified hypothyroidism Anxiety and depression Dysthymic disorder Nasal valve collapse Other diseases of nasal cavity and sinuses Nasal septal deviation Deviated nasal septum documented in this encounter [facility]* Diagnosis Low hemoglobin- Primary Anemia, unspecified Nasal valve collapse Other diseases of nasal cavity and sinuses Nasal septal deviation Deviated nasal septum documented in this encounter 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* Diagnosis Post-operative state- Primary Other postprocedural status documented in this encounter [facility] Diagnosis Post-operative state- Primary Other postprocedural status documented in this encounter [facility]* Diagnosis Post-operative state Other postprocedural status documented in this encounter [facility] note* Diagnosis Post-operative state- Primary Other postprocedural status [facility] Diagnosis Hypothyroidism, acquired Unspecified hypothyroidism documented [facility] Diagnosis Abnormal urine odor- Primary Other nonspecific finding on examination of urine [facility] Diagnosis Hypothyroidism, acquired Unspecified hypothyroidism documented 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 Diagnosis Burning with urination- Primary Dysuria [facility] Diagnosis Adjustment disorder with mixed anxiety and depressed mood documented [facility] Diagnosis Insomnia, unspecified type- Primary Anxiety and depression Dysthymic disorder [facility] Diagnosis Anxiety and depression Dysthymic disorder Insomnia, unspecified type documented [facility] Diagnosis Anxiety and depression Dysthymic disorder 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 documented in this encounter [facility] note* Diagnosis 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 documented in this encounter [facility] note* Diagnosis Insomnia, unspecified type documented in this encounter [facility] note* Diagnosis Acquired hypothyroidism- Primary Unspecified hypothyroidism 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 Class 1 obesity with body mass index (BMI) of 33.0 to 33.9 in adult, unspecified obesity type, unspecified whether serious comorbidity present Anal or rectal pain documented in this encounter [facility] note* Diagnosis Anxiety and depression Dysthymic disorder documented in this encounter [facility] note* Diagnosis Recurrent UTI Urinary tract infection, site not specified documented in this encounter [facility] note* Diagnosis Class 1 obesity due to excess calories without serious comorbidity with body mass index (BMI) of 34.0 to 34.9 in adult- Primary documented in this encounter [facility] note* Diagnosis Anxiety- Primary Anxiety state, unspecified documented in this encounter [facility] note* Diagnosis Hypothyroidism, acquired Unspecified hypothyroidism documented in this encounter [facility] note* Diagnosis Insomnia, unspecified type documented in this encounter [facility] note* Diagnosis Anxiety Anxiety state, unspecified documented in this encounter [facility] note* Diagnosis Hypothyroidism, acquired Unspecified hypothyroidism documented in this encounter [facility] note* Diagnosis Adjustment disorder with mixed anxiety and depressed mood documented in this encounter [facility] note* Diagnosis Insomnia, unspecified type documented in this encounter [facility] note* Diagnosis 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 documented in this encounter [facility] note* Diagnosis 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 Anxiety and depression Dysthymic disorder documented in this encounter [facility] note* Diagnosis Gender incongruence- Primary Alopecia Alopecia, unspecified Other specified hypothyroidism documented in this encounter [facility] note* Diagnosis 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 Encounter for cosmetic surgery Other plastic surgery for unacceptable cosmetic appearance Excess skin of neck documented in this encounter [facility] note* Diagnosis Burning with urination- Primary Dysuria documented in this encounter [facility] note* Diagnosis 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 documented in this encounter [facility] note* Diagnosis Insomnia, unspecified type documented in this encounter [facility] note* Diagnosis Sore throat- Primary Acute pharyngitis Bacterial sinusitis Unspecified sinusitis (chronic) Skin mass Localized superficial swelling, mass, or lump documented in this encounter [facility] note* Diagnosis Class 1 obesity due to excess calories without serious comorbidity with body mass index (BMI) of 34.0 to 34.9 in adult- Primary documented in this encounter [facility] note* Diagnosis Puncture wound of right foot, initial encounter- Primary Urinary frequency documented in this encounter [facility] note* Diagnosis 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 documented in this encounter [facility] note* Diagnosis Chest pain, unspecified type- Primary documented in this encounter [facility] note* Diagnosis Class 1 obesity due to excess calories without serious comorbidity with body mass index (BMI) of 34.0 to 34.9 in adult documented in this encounter [facility] note* Diagnosis Pre-op evaluation- Primary Preoperative examination, unspecified 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 History of 2018 novel coronavirus disease (COVID-19) Class 1 obesity with body mass index (BMI) of 30.0 to 30.9 in adult, unspecified obesity type, unspecified whether serious comorbidity present Former smoker Personal history of tobacco use, presenting hazards to health Preoperative examination- Primary Preoperative examination, unspecified Nasal valve collapse Other diseases of nasal cavity and sinuses Nasal septal deviation Deviated nasal septum 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 Acquired hypothyroidism Unspecified hypothyroidism Anxiety and depression Dysthymic disorder 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 documented in this encounter [facility] note* Diagnosis Pre-op evaluation- Primary Preoperative examination, unspecified 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 History of 2019 novel coronavirus disease (COVID-19) Class 1 obesity with body mass index (BMI) of 30.0 to 30.9 in adult, unspecified obesity type, unspecified whether serious comorbidity present Former smoker Personal history of tobacco use, presenting hazards to health Lumbar spine pain Lumbago Preoperative examination- Primary Preoperative examination, unspecified Nasal valve collapse Other diseases of nasal cavity and sinuses Nasal septal deviation Deviated nasal septum 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 Acquired hypothyroidism Unspecified hypothyroidism Anxiety and depression Dysthymic disorder 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 History of 2018 novel coronavirus disease (COVID-19) Class 1 obesity with body mass index (BMI) of 30.0 to 30.9 in adult, unspecified obesity type, unspecified whether serious comorbidity present Former smoker Personal history of tobacco use, presenting hazards to health Preoperative examination- Primary Preoperative examination, unspecified Nasal valve collapse Other diseases of nasal cavity and sinuses Nasal septal deviation Deviated nasal septum 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 Acquired hypothyroidism Unspecified hypothyroidism Anxiety and depression Dysthymic disorder Anxiety Anxiety state, unspecified documented [facility]* Diagnosis Facial pain Headache Pre-op evaluation- Primary Preoperative examination, unspecified 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 History of 2018 novel coronavirus disease (COVID-19) Class 1 obesity with body mass index (BMI) of 30.0 to 30.9 in adult, unspecified obesity type, unspecified whether serious comorbidity present Former smoker Personal history of tobacco use, presenting hazards to health Preoperative examination- Primary Preoperative examination, unspecified Nasal valve collapse Other diseases of nasal cavity and sinuses Nasal septal deviation Deviated nasal septum 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 Acquired hypothyroidism Unspecified hypothyroidism Anxiety and depression Dysthymic disorder [facility] Diagnosis Pre-op evaluation- Primary Preoperative examination, unspecified 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 History of 2018 novel coronavirus disease (COVID-19) Class 1 obesity with body mass index (BMI) of 30.0 to 30.9 in adult, unspecified obesity type, unspecified whether serious comorbidity present Former smoker Personal history of tobacco use, presenting hazards to health Preoperative examination- Primary Preoperative examination, unspecified Nasal valve collapse Other diseases of nasal cavity and sinuses Nasal septal deviation Deviated nasal septum 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 Acquired hypothyroidism Unspecified hypothyroidism Anxiety and depression Dysthymic disorder Class 1 obesity due to excess calories without serious comorbidity with body mass index (BMI) of 34.0 to 34.9 in adult- Primary [facility] Diagnosis Pre-op evaluation- Primary Preoperative examination, unspecified 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 History of 2019 novel coronavirus disease (COVID-19) Class 1 obesity with body mass index (BMI) of 30.0 to 30.9 in adult, unspecified obesity type, unspecified whether serious comorbidity present Former smoker Personal history of tobacco use, presenting hazards to health Preoperative examination- Primary Preoperative examination, unspecified Nasal valve collapse Other diseases of nasal cavity and sinuses Nasal septal deviation Deviated nasal septum 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 Acquired hypothyroidism Unspecified hypothyroidism Anxiety and depression Dysthymic disorder Insomnia, unspecified type 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 History of 2018 novel coronavirus disease (COVID-19) Class 1 obesity with body mass index (BMI) of 30.0 to 30.9 in adult, unspecified obesity type, unspecified whether serious comorbidity present Former smoker Personal history of tobacco use, presenting hazards to health Preoperative examination- Primary Preoperative examination, unspecified Nasal valve collapse Other diseases of nasal cavity and sinuses Nasal septal deviation Deviated nasal septum 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 Acquired hypothyroidism Unspecified hypothyroidism Anxiety and depression Dysthymic disorder Hypothyroidism, acquired Unspecified hypothyroidism documented [facility] Diagnosis Pre-op evaluation- Primary Preoperative examination, unspecified 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 History of 2018 novel coronavirus disease (COVID-19) Class 1 obesity with body mass index (BMI) of 30.0 to 30.9 in adult, unspecified obesity type, unspecified whether serious comorbidity present Former smoker Personal history of tobacco use, presenting hazards to health Preoperative examination- Primary Preoperative examination, unspecified Nasal valve collapse Other diseases of nasal cavity and sinuses Nasal septal deviation Deviated nasal septum 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 Acquired hypothyroidism Unspecified hypothyroidism Anxiety and depression Dysthymic disorder Gender incongruence documented [facility] Diagnosis Pre-op evaluation- Primary Preoperative examination, unspecified 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 History of 2019 novel coronavirus disease (COVID-19) Class 1 obesity with body mass index (BMI) of 30.0 to 30.9 in adult, unspecified obesity type, unspecified whether serious comorbidity present Former smoker Personal history of tobacco use, presenting hazards to health Preoperative examination- Primary Preoperative examination, unspecified Nasal valve collapse Other diseases of nasal cavity and sinuses Nasal septal deviation Deviated nasal septum 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 Acquired hypothyroidism Unspecified hypothyroidism Anxiety and depression Dysthymic disorder Gender incongruence 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 History of 2018 novel coronavirus disease (COVID-19) Class 1 obesity with body mass index (BMI) of 30.0 to 30.9 in adult, unspecified obesity type, unspecified whether serious comorbidity present Former smoker Personal history of tobacco use, presenting hazards to health Preoperative examination- Primary Preoperative examination, unspecified Nasal valve collapse Other diseases of nasal cavity and sinuses Nasal septal deviation Deviated nasal septum 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 Acquired hypothyroidism Unspecified hypothyroidism Anxiety and depression Dysthymic disorder 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 documented [facility] Diagnosis Pre-op evaluation- Primary Preoperative examination, unspecified 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 History of 2018 novel coronavirus disease (COVID-19) Class 1 obesity with body mass index (BMI) of 30.0 to 30.9 in adult, unspecified obesity type, unspecified whether serious comorbidity present Former smoker Personal history of tobacco use, presenting hazards to health Preoperative examination- Primary Preoperative examination, unspecified Nasal valve collapse Other diseases of nasal cavity and sinuses Nasal septal deviation Deviated nasal septum 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 Acquired hypothyroidism Unspecified hypothyroidism Anxiety and depression Dysthymic disorder Class 1 obesity due to excess calories without serious comorbidity with body mass index (BMI) of 34.0 to 34.9 in adult- Primary documented [facility] Diagnosis Pre-op evaluation- Primary Preoperative examination, unspecified 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 History of 2018 novel coronavirus disease (COVID-19) Class 1 obesity with body mass index (BMI) of 30.0 to 30.9 in adult, unspecified obesity type, unspecified whether serious comorbidity present Former smoker Personal history of tobacco use, presenting hazards to health Preoperative examination- Primary Preoperative examination, unspecified Nasal valve collapse Other diseases of nasal cavity and sinuses Nasal septal deviation Deviated nasal septum 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 Acquired hypothyroidism Unspecified hypothyroidism Anxiety and depression Dysthymic disorder Gender incongruence documented [facility] Diagnosis Pre-op evaluation- Primary Preoperative examination, unspecified 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 History of 2019 novel coronavirus disease (COVID-19) Class 1 obesity with body mass index (BMI) of 30.0 to 30.9 in adult, unspecified obesity type, unspecified whether serious comorbidity present Former smoker Personal history of tobacco use, presenting hazards to health Preoperative examination- Primary Preoperative examination, unspecified Nasal valve collapse Other diseases of nasal cavity and sinuses Nasal septal deviation Deviated nasal septum 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 Acquired hypothyroidism Unspecified hypothyroidism Anxiety and depression Dysthymic disorder Gender incongruence- Primary Hypothyroidism, acquired Unspecified hypothyroidism Swelling of both hands Screening for lipid disorders 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 History of 2018 novel coronavirus disease (COVID-19) Class 1 obesity with body mass index (BMI) of 30.0 to 30.9 in adult, unspecified obesity type, unspecified whether serious comorbidity present Former smoker Personal history of tobacco use, presenting hazards to health Preoperative examination- Primary Preoperative examination, unspecified Nasal valve collapse Other diseases of nasal cavity and sinuses Nasal septal deviation Deviated nasal septum 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 Acquired hypothyroidism Unspecified hypothyroidism Anxiety and depression Dysthymic disorder Anxiety Anxiety state, unspecified documented [facility] Diagnosis Pre-op evaluation- Primary Preoperative examination, unspecified 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 History of 2018 novel coronavirus disease (COVID-19) Class 1 obesity with body mass index (BMI) of 30.0 to 30.9 in adult, unspecified obesity type, unspecified whether serious comorbidity present Former smoker Personal history of tobacco use, presenting hazards to health Preoperative examination- Primary Preoperative examination, unspecified Nasal valve collapse Other diseases of nasal cavity and sinuses Nasal septal deviation Deviated nasal septum 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 Acquired hypothyroidism Unspecified hypothyroidism Anxiety and depression Dysthymic disorder Screening for genitourinary condition Screening for other and unspecified genitourinary condition documented [facility] Diagnosis Pre-op evaluation- Primary Preoperative examination, unspecified 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 History of 2019 novel coronavirus disease (COVID-19) Class 1 obesity with body mass index (BMI) of 30.0 to 30.9 in adult, unspecified obesity type, unspecified whether serious comorbidity present Former smoker Personal history of tobacco use, presenting hazards to health Preoperative examination- Primary Preoperative examination, unspecified Nasal valve collapse Other diseases of nasal cavity and sinuses Nasal septal deviation Deviated nasal septum 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 Acquired hypothyroidism Unspecified hypothyroidism Anxiety and depression Dysthymic disorder Insomnia, unspecified type documented [facility] Diagnosis Pre-op evaluation- Primary Preoperative examination, unspecified 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 History of 2018 novel coronavirus disease (COVID-19) Class 1 obesity with body mass index (BMI) of 30.0 to 30.9 in adult, unspecified obesity type, unspecified whether serious comorbidity present Former smoker Personal history of tobacco use, presenting hazards to health Preoperative examination- Primary Preoperative examination, unspecified Nasal valve collapse Other diseases of nasal cavity and sinuses Nasal septal deviation Deviated nasal septum 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 Acquired hypothyroidism Unspecified hypothyroidism Anxiety and depression Dysthymic disorder Class 1 obesity due to excess calories without serious comorbidity with body mass index (BMI) of 34.0 to 34.9 in adult- Primary documented [facility] Diagnosis Pre-op evaluation- Primary Preoperative examination, unspecified 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 History of 2018 novel coronavirus disease (COVID-19) Class 1 obesity with body mass index (BMI) of 30.0 to 30.9 in adult, unspecified obesity type, unspecified whether serious comorbidity present Former smoker Personal history of tobacco use, presenting hazards to health Preoperative examination- Primary Preoperative examination, unspecified Nasal valve collapse Other diseases of nasal cavity and sinuses Nasal septal deviation Deviated nasal septum 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 Acquired hypothyroidism Unspecified hypothyroidism Anxiety and depression Dysthymic disorder Gender incongruence documented [facility] Diagnosis Pre-op evaluation- Primary Preoperative examination, unspecified 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 History of 2019 novel coronavirus disease (COVID-19) Class 1 obesity with body mass index (BMI) of 30.0 to 30.9 in adult, unspecified obesity type, unspecified whether serious comorbidity present Former smoker Personal history of tobacco use, presenting hazards to health Preoperative examination- Primary Preoperative examination, unspecified Nasal valve collapse Other diseases of nasal cavity and sinuses Nasal septal deviation Deviated nasal septum 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 Acquired hypothyroidism Unspecified hypothyroidism Anxiety and depression Dysthymic disorder Gender incongruence documented [facility] Diagnosis Pre-op evaluation- Primary Preoperative examination, unspecified 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 History of 2019 novel coronavirus disease (COVID-19) Class 1 obesity with body mass index (BMI) of 30.0 to 30.9 in adult, unspecified obesity type, unspecified whether serious comorbidity present Former smoker Personal history of tobacco use, presenting hazards to health Preoperative examination- Primary Preoperative examination, unspecified Nasal valve collapse Other diseases of nasal cavity and sinuses Nasal septal deviation Deviated nasal septum 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 Acquired hypothyroidism Unspecified hypothyroidism Anxiety and depression Dysthymic disorder History of obesity- Primary Personal history of other specified diseases [facility] Diagnosis Pre-op evaluation- Primary Preoperative examination, unspecified 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 History of 2018 novel coronavirus disease (COVID-19) Class 1 obesity with body mass index (BMI) of 30.0 to 30.9 in adult, unspecified obesity type, unspecified whether serious comorbidity present Former smoker Personal history of tobacco use, presenting hazards to health Preoperative examination- Primary Preoperative examination, unspecified Nasal valve collapse Other diseases of nasal cavity and sinuses Nasal septal deviation Deviated nasal septum 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 Acquired hypothyroidism Unspecified hypothyroidism Anxiety and depression Dysthymic disorder Headache, unspecified headache type- Primary Vertigo Dizziness and giddiness Nausea and vomiting, unspecified vomiting type Photophobia Visual discomfort documented in this encounter [facility] note* Diagnosis Pre-op evaluation- Primary Preoperative examination, unspecified 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 History of 2018 novel coronavirus disease (COVID-19) Class 1 obesity with body mass index (BMI) of 30.0 to 30.9 in adult, unspecified obesity type, unspecified whether serious comorbidity present Former smoker Personal history of tobacco use, presenting hazards to health Preoperative examination- Primary Preoperative examination, unspecified Nasal valve collapse Other diseases of nasal cavity and sinuses Nasal septal deviation Deviated nasal septum 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 Acquired hypothyroidism Unspecified hypothyroidism Anxiety and depression Dysthymic disorder Night sweats- Primary Generalized hyperhidrosis Photophobia Visual discomfort Headaches Myalgias Fatigue, unspecified type Sinus congestion Other diseases of nasal cavity and sinuses [facility] Diagnosis Pre-op evaluation- Primary Preoperative examination, unspecified 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 History of 2019 novel coronavirus disease (COVID-19) Class 1 obesity with body mass index (BMI) of 30.0 to 30.9 in adult, unspecified obesity type, unspecified whether serious comorbidity present Former smoker Personal history of tobacco use, presenting hazards to health Preoperative examination- Primary Preoperative examination, unspecified Nasal valve collapse Other diseases of nasal cavity and sinuses Nasal septal deviation Deviated nasal septum 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 History of 2019 novel coronavirus disease (COVID-19) Class 1 obesity with body mass index (BMI) of 30.0 to 30.9 in adult, unspecified obesity type, unspecified whether serious comorbidity present Former smoker Personal history of tobacco use, presenting hazards to health Preoperative examination- Primary Preoperative examination, unspecified Nasal valve collapse Other diseases of nasal cavity and sinuses Nasal septal deviation Deviated nasal septum 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 Acquired hypothyroidism Unspecified hypothyroidism Anxiety and depression Dysthymic disorder Elevated TSH- Primary Nonspecific abnormal results of thyroid function study [facility] Additional Instructions Your work-up today showed no obvious signs of sinus infection on your CAT scan and your lab work shows no signs of dysfunction of your gallbladder or pancreas or liver and your urine shows no blood to suggest kidney stone or signs of infection.[facility] Work Phone: Hospital Discharge instructions Additional Instructions Please wear your Parish wrap for compression and your brace for stabilization/support. Continue to ice the area to reduce pain and speed healing. If you have further concerns or no improvement of symptoms after 1 week please return for repeat evaluationW[facility] Work Phone: Hospital Discharge instructions Additional Instructions Thank you for trusting us with your care today! Please take Tylenol (2 pills, 650 mg), ibuprofen (2 pills, 400 mg) every 6 hours as needed for pain and fever control. Please return to the emergency department if your symptoms change or worsen. Please follow with your primary care physician for further outpatient evaluation and management.[facility] Work Phone: Hospital Discharge instructions Additional Instructions Warm soaks. Motrin and Tylenol for pain. Your lab work was unremarkable. Your CAT scan did not show any abnormality. There was no abscess. Currently there is no other signs of infection. This should progressively improve if not follow-up with your primary care physicianW[facility] Work Phone: Hospital Discharge instructionsAdditional Instructions Your workup today showed no sign of brain bleed or mass or signs of obvious infection or electrolyte abnormality indicating symptoms are most likely related to muscle tension leading to headache. Continue all of your home medication as directed but add the Robaxin to help with muscle tension and spasm. Continue to stretch and heat the area as well to help reduce pain and speed healing. Return to the ER should you have any further concernsWSelect [facility] Work Phone: Reason for referral (narrative)* - Authorized Specialty Diagnoses / Procedures Referred By Contac t Referred To Contact Diagnoses Gender dysphoria Nasal valve collapse Nasal septal deviation Procedures REFER TO [facility] - PRE ANESTHESIA CONSULTATION CLINIC Navneet Russ MD [address] [place] [address] Referral ID Status Reason Start Date Expiration Date V isits Requested Visits Authorized [id number] Authorized 03/25/2022 06/23/2022 1 1 [facility] for referral (narrative)* Diagnostic Procedure Only (Routine) - Closed Specialty Diagnoses / Procedures Referred By Contac t Referred To Contact US IMAGING Diagnoses Recurrent UTI Procedures US KIDNEY/BLADDER US RETROPERITONEAL REAL TIME W/[place] [address] [place] [address] [facility] [place] [address] Referral ID Status Reason Start Date Expiration Date V isits Requested Visits Authorized [id number] Closed Auto-Generate d Referral 05/05/2023 06/03/2024 1 1 [facility] for referral (narrative)* Diagnostic Procedure Only (Urgent) - Closed Specialty Diagnoses / Procedures Referred By Contac t Referred To Contact XR IMAGING Diagnoses Lumbar spine pain Procedures XR THORACIC LIMITED 2V AP/LAT RADEX SPINE THORACIC 2 VIEWS Donna Felder APRN.SLOT AMBASSADOR [address] [place] [address] [place] [address] Referral ID Status Reason Start Date Expiration Date V isits Requested Visits Authorized [id number] Closed Auto-Generate d Referral 11/26/2021 12/26/2022 1 1 * Diagnostic Procedure Only (Urgent) - Closed Specialty Diagnoses / Procedures Referred By Contac t Referred To Contact XR IMAGING Diagnoses Lumbar spine pain Procedures XR LUMBAR LIMITED 2V AP/LAT RADEX SPINE LUMBOSACRAL 2/3 VIEWS Donna Felder APRN.SLOT AMBASSADOR [address] [place] [address] [place] [address] Referral ID Status Reason Start Date Expiration Date V isits Requested Visits Authorized [id number] Closed Auto-Generate d Referral 11/26/2021 12/26/2022 1 1 [facility] (narrative)No reason for referral information availableWSelect [facility] Work Phone: Reason for visit Narrative* Diagnostic Procedure Only (Urgent) - Closed Specialty Diagnoses / Procedures Referred By Contac t Referred To Contact XR IMAGING Diagnoses Lumbar spine pain Procedures XR THORACIC LIMITED 2V AP/LAT RADEX SPINE THORACIC 2 VIEWS Donna Felder APRN.SLOT AMBASSADOR [address] [place] [address] [place] [address] Referral ID Status Reason Start Date Expiration Date V isits Requested Visits Authorized [id number] Closed Auto-Generate d Referral 11/26/2021 12/26/2022 1 1 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 Advance Directive(s) 05/10/2022 5:52 AM Advance Directive(s) 07/05/2021 8:27 AM Advance Directive Response Recorded Date/ Time Advance Directives No September 16, 2016 9:12pm Living Will No January 06, 2023 10:15pm Power of Blast Furnace Blower No January 06 10:15pm Advance Directive Response Recorded Date/ Time Advance Directives No September 16, 2016 9:12pm Living Will No February 25, 2023 1 2:23am Power of Blast Furnace Blower No February 25, 2023 12:23am Advance Directive Response Recorded Date/ Time Advance Directives No September 16, 2016 9:12pm Living Will No May 18, 2023 6:52pm Power of Blast Furnace Blower No May 18 6:52pm Advance Directive Response Recorded Date/ Time Advance Directives No September 16, 2016 9:12pm Living Will No June 25, 2023 11:16pm Power of Blast Furnace Blower No June 11:16pm Advance Directive Response Recorded Date/ Time Advance Directives No September 16, 2016 9:12pm Living Will No February 05, 2024 8:40pm Power of Blast Furnace Blower No February 04 8:40pm Advance Directive Response Recorded Date/ Time Do you have a Healthcare Power of Blast Furnace Blower? No April 25, 2025 8:42pm Advance Directives No September 16, 2016 9:12pm Chief Complaint and Reason for Visit Chief Complaint left foot injury Chief Complaint YODER Chief Complaint YODER WRIST INJURY Chief Complaint WRIST INJURY FOOT INJURY Chief Complaint FOOT INJURY MALE COMPLAINT Chief Complaint chest tightness, n/t Chief Complaint Admit Date gen ill April 25, 2025 7:13 pm Reason for Referral Specialty Diagnoses / Procedures Referred By Deanna t Referred To Contact Hematology Diagnoses Low hemoglobin Procedures CONSULT TO HEMATOLOGY OFFICE/OUTPATIENT NEW HIGH MDM 60-74 MINUTES Matt Arciniega PA-C [address] [place] [phone] Referral ID Status Reason Start Date Expiration Date Visits Requested Visits Authorized [id number] Authorized PCP Requested Referral 04/16/2022 04/16/2023 1 1 Specialty Diagnoses / Procedures Referred By Contac t Referred To Contact [facility] Diagnoses Gender dysphoria Procedures CONSULT TO SPEECH THERAPY OFFICE/OUTPATIENT [facility] 60-[place] [address] [place] [phone] [facility] [place] [phone] Referral ID Status Reason Start Date Expiration Date Visits Requested Visits Authorized [id number] Pending Review Auto-Generat ed Referral 11/21/2022 11/21/2023 1 1 Specialty Diagnoses / Procedures Referred By Contac t Referred To Contact Plastic Surgery Diagnoses Gender dysphoria Procedures CONSULT TO PLASTIC SURGERY OFFICE/OUTPATIENT [facility] 60-74 MINUTES Christianne Oneil PA-C [address] [place] [phone] Referral ID Status Reason Start Date Expiration Date Visits Requested Visits Authorized [id number] Authorized PCP Requested Referral 05/22/2023 05/21/2024 1 1 Specialty Diagnoses / Procedures Referred By Contac t Referred To Contact Diagnoses Acquired hypothyroidism Gender dysphoria Class 1 obesity with body mass index (BMI) of 33.0 to 33.9 in adult, unspecified obesity type, unspecified whether serious comorbidity present Procedures ENDOCRINE MEDICAL WEIGHT MANAGEMENT OFFICE/OUTPATIENT [facility] 60-[place] [address] [place] [phone] Referral ID Status Reason Start Date Expiration Date Visits Requested Visits Authorized [id number] Authorized PCP Requested Referral 06/26/2023 06/25/2024 1 1 Specialty Diagnoses / Procedures Referred By Contac t Referred To Contact Diagnoses Anxiety Procedures CONSULT TO PSYCHIATRY OFFICE/OUTPATIENT [facility] 60-[place] [address] [place] [address] Referral ID Status Reason Start Date Expiration Date Visits Requested Visits Authorized [id number] Pending Review PCP Requested Referral 3 08/25/2024 1 1 Specialty Diagnoses / Procedures Referred By Contkristen t Referred To Contact CT IMAGING Diagnoses Facial pain Procedures CT FACIAL BONE/RIGO WO IVCON CT MAXLFCL AREA C-Leslie Ortez, JEFFREY.SLOT AMBASSADOR [address] [place] [address] [place] [id number] Referral ID Status Reason Start Date Expiration Date V isits Requested Visits Authorized [id number] Closed Auto-Generate d Referral 05/16/2021 06/15/2021 1 1 Summary Purpose Family History No Family History Records FoundNo Family History Records Found Additional Source Comments Source Comments (unrecognize d section and content) In the event this informatio n is protected by the Federal Confidentiality of Alcohol and Drug Abuse Patient Records regulations: The Federal rules restrict any use of the information to criminally investigate or prosecute any alcohol or drug abuse patient.[facility] CenterIn the event this information is protected by the Federal Confidentiality of Alcohol and Drug Abuse Patient Records regulations: The Federal rules restrict any use of the information to criminally investigate or prosecute any alcohol or drug abuse patient.[facility] CenterIn the event this information is protected by the Federal Confidentiality of Alcohol and Drug Abuse Patient Records regulations: The Federal rules restrict any use of the information to criminally investigate or prosecute any alcohol or drug abuse patient.[facility] CenterIn the event this information is protected by the Federal Confidentiality of Alcohol and Drug Abuse Patient Records regulations: The Federal rules restrict any use of the information to criminally investigate or prosecute any alcohol or drug abuse patient.[facility] CenterIn the event this information is protected by the Federal Confidentiality of Alcohol and Drug Abuse Patient Records regulations: The Federal rules restrict any use of the information to criminally investigate or prosecute any alcohol or drug abuse patient.[facility] CenterIn the event this information is protected by the Federal Confidentiality of Alcohol and Drug Abuse Patient Records regulations: The Federal rules restrict any use of the information to criminally investigate or prosecute any alcohol or drug abuse patient.[facility] CenterIn the event this information is protected by the Federal Confidentiality of Alcohol and Drug Abuse Patient Records regulations: The Federal rules restrict any use of the information to criminally investigate or prosecute any alcohol or drug abuse patient.[facility] CenterIn the event this information is protected by the Federal Confidentiality of Alcohol and Drug Abuse Patient Records regulations: The Federal rules restrict any use of the information to criminally investigate or prosecute any alcohol or drug abuse patient.[facility] CenterIn the event this information is protected by the Federal Confidentiality of Alcohol and Drug Abuse Patient Records regulations: The Federal rules restrict any use of the information to criminally investigate or prosecute any alcohol or drug abuse patient.[facility] CenterIn the event this information is protected by the Federal Confidentiality of Alcohol and Drug Abuse Patient Records regulations: The Federal rules restrict any use of the information to criminally investigate or prosecute any alcohol or drug abuse patient.[facility] CenterIn the event this information is protected by the Federal Confidentiality of Alcohol and Drug Abuse Patient Records regulations: The Federal rules restrict any use of the information to criminally investigate or prosecute any alcohol or drug abuse patient.[facility] CenterIn the event this information is protected by the Federal Confidentiality of Alcohol and Drug Abuse Patient Records regulations: The Federal rules restrict any use of the information to criminally investigate or prosecute any alcohol or drug abuse patient.[facility] CenterIn the event this information is protected by the Federal Confidentiality of Alcohol and Drug Abuse Patient Records regulations: The Federal rules restrict any use of the information to criminally investigate or prosecute any alcohol or drug abuse patient.[facility] CenterIn the event this information is protected by the Federal Confidentiality of Alcohol and Drug Abuse Patient Records regulations: The Federal rules restrict any use of the information to criminally investigate or prosecute any alcohol or drug abuse patient.[facility] CenterIn the event this information is protected by the Federal Confidentiality of Alcohol and Drug Abuse Patient Records regulations: The Federal rules restrict any use of the information to criminally investigate or prosecute any alcohol or drug abuse patient.[facility] CenterIn the event this information is protected by the Federal Confidentiality of Alcohol and Drug Abuse Patient Records regulations: The Federal rules restrict any use of the information to criminally investigate or prosecute any alcohol or drug abuse patient.[facility] CenterIn the event this information is protected by the Federal Confidentiality of Alcohol and Drug Abuse Patient Records regulations: The Federal rules restrict any use of the information to criminally investigate or prosecute any alcohol or drug abuse patient.[facility] CenterIn the event this information is protected by the Federal Confidentiality of Alcohol and Drug Abuse Patient Records regulations: The Federal rules restrict any use of the information to criminally investigate or prosecute any alcohol or drug abuse patient.[facility] CenterIn the event this information is protected by the Federal Confidentiality of Alcohol and Drug Abuse Patient Records regulations: The Federal rules restrict any use of the information to criminally investigate or prosecute any alcohol or drug abuse patient.[facility] CenterIn the event this information is protected by the Federal Confidentiality of Alcohol and Drug Abuse Patient Records regulations: The Federal rules restrict any use of the information to criminally investigate or prosecute any alcohol or drug abuse patient.[facility] CenterIn the event this information is protected by the Federal Confidentiality of Alcohol and Drug Abuse Patient Records regulations: The Federal rules restrict any use of the information to criminally investigate or prosecute any alcohol or drug abuse patient.[facility] CenterIn the event this information is protected by the Federal Confidentiality of Alcohol and Drug Abuse Patient Records regulations: The Federal rules restrict any use of the information to criminally investigate or prosecute any alcohol or drug abuse patient.[facility] CenterIn the event this information is protected by the Federal Confidentiality of Alcohol and Drug Abuse Patient Records regulations: The Federal rules restrict any use of the information to criminally investigate or prosecute any alcohol or drug abuse patient.[facility] CenterIn the event this information is protected by the Federal Confidentiality of Alcohol and Drug Abuse Patient Records regulations: The Federal rules restrict any use of the information to criminally investigate or prosecute any alcohol or drug abuse patient.[facility] CenterIn the event this information is protected by the Federal Confidentiality of Alcohol and Drug Abuse Patient Records regulations: The Federal rules restrict any use of the information to criminally investigate or prosecute any alcohol or drug abuse patient.[facility] CenterIn the event this information is protected by the Federal Confidentiality of Alcohol and Drug Abuse Patient Records regulations: The Federal rules restrict any use of the information to criminally investigate or prosecute any alcohol or drug abuse patient.[facility] CenterIn the event this information is protected by the Federal Confidentiality of Alcohol and Drug Abuse Patient Records regulations: The Federal rules restrict any use of the information to criminally investigate or prosecute any alcohol or drug abuse patient.[facility] CenterIn the event this information is protected by the Federal Confidentiality of Alcohol and Drug Abuse Patient Records regulations: The Federal rules restrict any use of the information to criminally investigate or prosecute any alcohol or drug abuse patient.[facility] CenterIn the event this information is protected by the Federal Confidentiality of Alcohol and Drug Abuse Patient Records regulations: The Federal rules restrict any use of the information to criminally investigate or prosecute any alcohol or drug abuse patient.[facility] CenterIn the event this information is protected by the Federal Confidentiality of Alcohol and Drug Abuse Patient Records regulations: The Federal rules restrict any use of the information to criminally investigate or prosecute any alcohol or drug abuse patient.[facility] CenterIn the event this information is protected by the Federal Confidentiality of Alcohol and Drug Abuse Patient Records regulations: The Federal rules restrict any use of the information to criminally investigate or prosecute any alcohol or drug abuse patient.[facility] CenterIn the event this information is protected by the Federal Confidentiality of Alcohol and Drug Abuse Patient Records regulations: The Federal rules restrict any use of the information to criminally investigate or prosecute any alcohol or drug abuse patient.[facility] CenterIn the event this information is protected by the Federal Confidentiality of Alcohol and Drug Abuse Patient Records regulations: The Federal rules restrict any use of the information to criminally investigate or prosecute any alcohol or drug abuse patient.[facility] CenterIn the event this information is protected by the Federal Confidentiality of Alcohol and Drug Abuse Patient Records regulations: The Federal rules restrict any use of the information to criminally investigate or prosecute any alcohol or drug abuse patient.[facility] CenterIn the event this information is protected by the Federal Confidentiality of Alcohol and Drug Abuse Patient Records regulations: The Federal rules restrict any use of the information to criminally investigate or prosecute any alcohol or drug abuse patient.[facility] CenterIn the event this information is protected by the Federal Confidentiality of Alcohol and Drug Abuse Patient Records regulations: The Federal rules restrict any use of the information to criminally investigate or prosecute any alcohol or drug abuse patient.[facility] CenterIn the event this information is protected by the Federal Confidentiality of Alcohol and Drug Abuse Patient Records regulations: The Federal rules restrict any use of the information to criminally investigate or prosecute any alcohol or drug abuse patient.[facility] CenterIn the event this information is protected by the Federal Confidentiality of Alcohol and Drug Abuse Patient Records regulations: The Federal rules restrict any use of the information to criminally investigate or prosecute any alcohol or drug abuse patient.[facility] CenterIn the event this information is protected by the Federal Confidentiality of Alcohol and Drug Abuse Patient Records regulations: The Federal rules restrict any use of the information to criminally investigate or prosecute any alcohol or drug abuse patient.[facility] CenterIn the event this information is protected by the Federal Confidentiality of Alcohol and Drug Abuse Patient Records regulations: The Federal rules restrict any use of the information to criminally investigate or prosecute any alcohol or drug abuse patient.[facility] CenterIn the event this information is protected by the Federal Confidentiality of Alcohol and Drug Abuse Patient Records regulations: The Federal rules restrict any use of the information to criminally investigate or prosecute any alcohol or drug abuse patient.[facility] CenterIn the event this information is protected by the Federal Confidentiality of Alcohol and Drug Abuse Patient Records regulations: The Federal rules restrict any use of the information to criminally investigate or prosecute any alcohol or drug abuse patient.[facility] CenterIn the event this information is protected by the Federal Confidentiality of Alcohol and Drug Abuse Patient Records regulations: The Federal rules restrict any use of the information to criminally investigate or prosecute any alcohol or drug abuse patient.[facility] CenterIn the event this information is protected by the Federal Confidentiality of Alcohol and Drug Abuse Patient Records regulations: The Federal rules restrict any use of the information to criminally investigate or prosecute any alcohol or drug abuse patient.[facility] CenterIn the event this information is protected by the Federal Confidentiality of Alcohol and Drug Abuse Patient Records regulations: The Federal rules restrict any use of the information to criminally investigate or prosecute any alcohol or drug abuse patient.[facility] CenterIn the event this information is protected by the Federal Confidentiality of Alcohol and Drug Abuse Patient Records regulations: The Federal rules restrict any use of the information to criminally investigate or prosecute any alcohol or drug abuse patient.[facility] CenterIn the event this information is protected by the Federal Confidentiality of Alcohol and Drug Abuse Patient Records regulations: The Federal rules restrict any use of the information to criminally investigate or prosecute any alcohol or drug abuse patient.[facility] CenterIn the event this information is protected by the Federal Confidentiality of Alcohol and Drug Abuse Patient Records regulations: The Federal rules restrict any use of the information to criminally investigate or prosecute any alcohol or drug abuse patient.[facility] CenterIn the event this information is protected by the Federal Confidentiality of Alcohol and Drug Abuse Patient Records regulations: The Federal rules restrict any use of the information to criminally investigate or prosecute any alcohol or drug abuse patient.[facility] CenterIn the event this information is protected by the Federal Confidentiality of Alcohol and Drug Abuse Patient Records regulations: The Federal rules restrict any use of the information to criminally investigate or prosecute any alcohol or drug abuse patient.[facility] CenterIn the event this information is protected by the Federal Confidentiality of Alcohol and Drug Abuse Patient Records regulations: The Federal rules restrict any use of the information to criminally investigate or prosecute any alcohol or drug abuse patient.[facility] CenterIn the event this information is protected by the Federal Confidentiality of Alcohol and Drug Abuse Patient Records regulations: The Federal rules restrict any use of the information to criminally investigate or prosecute any alcohol or drug abuse patient.[facility] CenterIn the event this information is protected by the Federal Confidentiality of Alcohol and Drug Abuse Patient Records regulations: The Federal rules restrict any use of the information to criminally investigate or prosecute any alcohol or drug abuse patient.[facility] CenterIn the event this information is protected by the Federal Confidentiality of Alcohol and Drug Abuse Patient Records regulations: The Federal rules restrict any use of the information to criminally investigate or prosecute any alcohol or drug abuse patient.[facility] CenterIn the event this information is protected by the Federal Confidentiality of Alcohol and Drug Abuse Patient Records regulations: The Federal rules restrict any use of the information to criminally investigate or prosecute any alcohol or drug abuse patient.[facility] CenterIn the event this information is protected by the Federal Confidentiality of Alcohol and Drug Abuse Patient Records regulations: The Federal rules restrict any use of the information to criminally investigate or prosecute any alcohol or drug abuse patient.[facility] CenterIn the event this information is protected by the Federal Confidentiality of Alcohol and Drug Abuse Patient Records regulations: The Federal rules restrict any use of the information to criminally investigate or prosecute any alcohol or drug abuse patient.[facility] CenterIn the event this information is protected by the Federal Confidentiality of Alcohol and Drug Abuse Patient Records regulations: The Federal rules restrict any use of the information to criminally investigate or prosecute any alcohol or drug abuse patient.[facility] CenterIn the event this information is protected by the Federal Confidentiality of Alcohol and Drug Abuse Patient Records regulations: The Federal rules restrict any use of the information to criminally investigate or prosecute any alcohol or drug abuse patient.[facility] CenterIn the event this information is protected by the Federal Confidentiality of Alcohol and Drug Abuse Patient Records regulations: The Federal rules restrict any use of the information to criminally investigate or prosecute any alcohol or drug abuse patient.[facility] CenterIn the event this information is protected by the Federal Confidentiality of Alcohol and Drug Abuse Patient Records regulations: The Federal rules restrict any use of the information to criminally investigate or prosecute any alcohol or drug abuse patient.[facility] CenterIn the event this information is protected by the Federal Confidentiality of Alcohol and Drug Abuse Patient Records regulations: The Federal rules restrict any use of the information to criminally investigate or prosecute any alcohol or drug abuse patient.[facility] CenterIn the event this information is protected by the Federal Confidentiality of Alcohol and Drug Abuse Patient Records regulations: The Federal rules restrict any use of the information to criminally investigate or prosecute any alcohol or drug abuse patient.[facility] CenterIn the event this information is protected by the Federal Confidentiality of Alcohol and Drug Abuse Patient Records regulations: The Federal rules restrict any use of the information to criminally investigate or prosecute any alcohol or drug abuse patient.[facility] CenterIn the event this information is protected by the Federal Confidentiality of Alcohol and Drug Abuse Patient Records regulations: The Federal rules restrict any use of the information to criminally investigate or prosecute any alcohol or drug abuse patient.[facility] CenterIn the event this information is protected by the Federal Confidentiality of Alcohol and Drug Abuse Patient Records regulations: The Federal rules restrict any use of the information to criminally investigate or prosecute any alcohol or drug abuse patient.[facility] CenterIn the event this information is protected by the Federal Confidentiality of Alcohol and Drug Abuse Patient Records regulations: The Federal rules restrict any use of the information to criminally investigate or prosecute any alcohol or drug abuse patient.[facility] CenterIn the event this information is protected by the Federal Confidentiality of Alcohol and Drug Abuse Patient Records regulations: The Federal rules restrict any use of the information to criminally investigate or prosecute any alcohol or drug abuse patient.[facility] CenterIn the event this information is protected by the Federal Confidentiality of Alcohol and Drug Abuse Patient Records regulations: The Federal rules restrict any use of the information to criminally investigate or prosecute any alcohol or drug abuse patient.[facility] CenterIn the event this information is protected by the Federal Confidentiality of Alcohol and Drug Abuse Patient Records regulations: The Federal rules restrict any use of the information to criminally investigate or prosecute any alcohol or drug abuse patient.[facility] CenterIn the event this information is protected by the Federal Confidentiality of Alcohol and Drug Abuse Patient Records regulations: The Federal rules restrict any use of the information to criminally investigate or prosecute any alcohol or drug abuse patient.[facility] CenterIn the event this information is protected by the Federal Confidentiality of Alcohol and Drug Abuse Patient Records regulations: The Federal rules restrict any use of the information to criminally investigate or prosecute any alcohol or drug abuse patient.[facility] CenterIn the event this information is protected by the Federal Confidentiality of Alcohol and Drug Abuse Patient Records regulations: The Federal rules restrict any use of the information to criminally investigate or prosecute any alcohol or drug abuse patient.[facility] CenterIn the event this information is protected by the Federal Confidentiality of Alcohol and Drug Abuse Patient Records regulations: The Federal rules restrict any use of the information to criminally investigate or prosecute any alcohol or drug abuse patient.[facility] CenterIn the event this information is protected by the Federal Confidentiality of Alcohol and Drug Abuse Patient Records regulations: The Federal rules restrict any use of the information to criminally investigate or prosecute any alcohol or drug abuse patient.[facility] CenterIn the event this information is protected by the Federal Confidentiality of Alcohol and Drug Abuse Patient Records regulations: The Federal rules restrict any use of the information to criminally investigate or prosecute any alcohol or drug abuse patient.[facility] CenterIn the event this information is protected by the Federal Confidentiality of Alcohol and Drug Abuse Patient Records regulations: The Federal rules restrict any use of the information to criminally investigate or prosecute any alcohol or drug abuse patient.[facility] CenterIn the event this information is protected by the Federal Confidentiality of Alcohol and Drug Abuse Patient Records regulations: The Federal rules restrict any use of the information to criminally investigate or prosecute any alcohol or drug abuse patient.[facility] CenterIn the event this information is protected by the Federal Confidentiality of Alcohol and Drug Abuse Patient Records regulations: The Federal rules restrict any use of the information to criminally investigate or prosecute any alcohol or drug abuse patient.[facility] CenterIn the event this information is protected by the Federal Confidentiality of Alcohol and Drug Abuse Patient Records regulations: The Federal rules restrict any use of the information to criminally investigate or prosecute any alcohol or drug abuse patient.[facility] CenterIn the event this information is protected by the Federal Confidentiality of Alcohol and Drug Abuse Patient Records regulations: The Federal rules restrict any use of the information to criminally investigate or prosecute any alcohol or drug abuse patient.[facility] CenterIn the event this information is protected by the Federal Confidentiality of Alcohol and Drug Abuse Patient Records regulations: The Federal rules restrict any use of the information to criminally investigate or prosecute any alcohol or drug abuse patient.[facility] CenterIn the event this information is protected by the Federal Confidentiality of Alcohol and Drug Abuse Patient Records regulations: The Federal rules restrict any use of the information to criminally investigate or prosecute any alcohol or drug abuse patient.[facility] CenterIn the event this information is protected by the Federal Confidentiality of Alcohol and Drug Abuse Patient Records regulations: The Federal rules restrict any use of the information to criminally investigate or prosecute any alcohol or drug abuse patient.[facility] CenterIn the event this information is protected by the Federal Confidentiality of Alcohol and Drug Abuse Patient Records regulations: The Federal rules restrict any use of the information to criminally investigate or prosecute any alcohol or drug abuse patient.[facility] CenterIn the event this information is protected by the Federal Confidentiality of Alcohol and Drug Abuse Patient Records regulations: The Federal rules restrict any use of the information to criminally investigate or prosecute any alcohol or drug abuse patient.[facility] CenterIn the event this information is protected by the Federal Confidentiality of Alcohol and Drug Abuse Patient Records regulations: The Federal rules restrict any use of the information to criminally investigate or prosecute any alcohol or drug abuse patient.[facility] CenterIn the event this information is protected by the Federal Confidentiality of Alcohol and Drug Abuse Patient Records regulations: The Federal rules restrict any use of the information to criminally investigate or prosecute any alcohol or drug abuse patient.[facility] CenterIn the event this information is protected by the Federal Confidentiality of Alcohol and Drug Abuse Patient Records regulations: The Federal rules restrict any use of the information to criminally investigate or prosecute any alcohol or drug abuse patient.[facility] CenterIn the event this information is protected by the Federal Confidentiality of Alcohol and Drug Abuse Patient Records regulations: The Federal rules restrict any use of the information to criminally investigate or prosecute any alcohol or drug abuse patient.[facility] CenterIn the event this information is protected by the Federal Confidentiality of Alcohol and Drug Abuse Patient Records regulations: The Federal rules restrict any use of the information to criminally investigate or prosecute any alcohol or drug abuse patient.[facility] CenterIn the event this information is protected by the Federal Confidentiality of Alcohol and Drug Abuse Patient Records regulations: The Federal rules restrict any use of the information to criminally investigate or prosecute any alcohol or drug abuse patient.[facility] CenterIn the event this information is protected by the Federal Confidentiality of Alcohol and Drug Abuse Patient Records regulations: The Federal rules restrict any use of the information to criminally investigate or prosecute any alcohol or drug abuse patient.[facility] CenterIn the event this information is protected by the Federal Confidentiality of Alcohol and Drug Abuse Patient Records regulations: The Federal rules restrict any use of the information to criminally investigate or prosecute any alcohol or drug abuse patient.[facility] CenterIn the event this information is protected by the Federal Confidentiality of Alcohol and Drug Abuse Patient Records regulations: The Federal rules restrict any use of the information to criminally investigate or prosecute any alcohol or drug abuse patient.[facility] CenterIn the event this information is protected by the Federal Confidentiality of Alcohol and Drug Abuse Patient Records regulations: The Federal rules restrict any use of the information to criminally investigate or prosecute any alcohol or drug abuse patient.[facility] CenterIn the event this information is protected by the Federal Confidentiality of Alcohol and Drug Abuse Patient Records regulations: The Federal rules restrict any use of the information to criminally investigate or prosecute any alcohol or drug abuse patient.[facility] CenterIn the event this information is protected by the Federal Confidentiality of Alcohol and Drug Abuse Patient Records regulations: The Federal rules restrict any use of the information to criminally investigate or prosecute any alcohol or drug abuse patient.[facility] CenterIn the event this information is protected by the Federal Confidentiality of Alcohol and Drug Abuse Patient Records regulations: The Federal rules restrict any use of the information to criminally investigate or prosecute any alcohol or drug abuse patient.[facility] CenterIn the event this information is protected by the Federal Confidentiality of Alcohol and Drug Abuse Patient Records regulations: The Federal rules restrict any use of the information to criminally investigate or prosecute any alcohol or drug abuse patient.[facility] CenterIn the event this information is protected by the Federal Confidentiality of Alcohol and Drug Abuse Patient Records regulations: The Federal rules restrict any use of the information to criminally investigate or prosecute any alcohol or drug abuse patient.[facility] CenterIn the event this information is protected by the Federal Confidentiality of Alcohol and Drug Abuse Patient Records regulations: The Federal rules restrict any use of the information to criminally investigate or prosecute any alcohol or drug abuse patient.[facility] CenterIn the event this information is protected by the Federal Confidentiality of Alcohol and Drug Abuse Patient Records regulations: The Federal rules restrict any use of the information to criminally investigate or prosecute any alcohol or drug abuse patient.[facility] CenterIn the event this information is protected by the Federal Confidentiality of Alcohol and Drug Abuse Patient Records regulations: The Federal rules restrict any use of the information to criminally investigate or prosecute any alcohol or drug abuse patient.[facility] CenterIn the event this information is protected by the Federal Confidentiality of Alcohol and Drug Abuse Patient Records regulations: The Federal rules restrict any use of the information to criminally investigate or prosecute any alcohol or drug abuse patient.[facility] CenterIn the event this information is protected by the Federal Confidentiality of Alcohol and Drug Abuse Patient Records regulations: The Federal rules restrict any use of the information to criminally investigate or prosecute any alcohol or drug abuse patient.[facility] CenterIn the event this information is protected by the Federal Confidentiality of Alcohol and Drug Abuse Patient Records regulations: The Federal rules restrict any use of the information to criminally investigate or prosecute any alcohol or drug abuse patient.[facility] CenterIn the event this information is protected by the Federal Confidentiality of Alcohol and Drug Abuse Patient Records regulations: The Federal rules restrict any use of the information to criminally investigate or prosecute any alcohol or drug abuse patient.[facility] CenterIn the event this information is protected by the Federal Confidentiality of Alcohol and Drug Abuse Patient Records regulations: The Federal rules restrict any use of the information to criminally investigate or prosecute any alcohol or drug abuse patient.[facility] CenterIn the event this information is protected by the Federal Confidentiality of Alcohol and Drug Abuse Patient Records regulations: The Federal rules restrict any use of the information to criminally investigate or prosecute any alcohol or drug abuse patient.[facility] CenterIn the event this information is protected by the Federal Confidentiality of Alcohol and Drug Abuse Patient Records regulations: The Federal rules restrict any use of the information to criminally investigate or prosecute any alcohol or drug abuse patient.[facility] CenterIn the event this information is protected by the Federal Confidentiality of Alcohol and Drug Abuse Patient Records regulations: The Federal rules restrict any use of the information to criminally investigate or prosecute any alcohol or drug abuse patient.[facility] CenterIn the event this information is protected by the Federal Confidentiality of Alcohol and Drug Abuse Patient Records regulations: The Federal rules restrict any use of the information to criminally investigate or prosecute any alcohol or drug abuse patient.[facility] CenterIn the event this information is protected by the Federal Confidentiality of Alcohol and Drug Abuse Patient Records regulations: The Federal rules restrict any use of the information to criminally investigate or prosecute any alcohol or drug abuse patient.[facility] CenterIn the event this information is protected by the Federal Confidentiality of Alcohol and Drug Abuse Patient Records regulations: The Federal rules restrict any use of the information to criminally investigate or prosecute any alcohol or drug abuse patient.[facility] CenterIn the event this information is protected by the Federal Confidentiality of Alcohol and Drug Abuse Patient Records regulations: The Federal rules restrict any use of the information to criminally investigate or prosecute any alcohol or drug abuse patient.[facility] Reason for Visit (unrecogniz ed section and content) Reason Comments Follow Up Specialty Diagnoses / Procedures Referred By Contac t Referred To Contact [facility] DEPARTMENT Diagnoses Consult, Test, Treat Procedures All Medically Necessary Services Self [facility] [place] [place] [address] Referral ID Status Reason Start Date Expiration Date Visits Requested Visits Authorized [id number] Authorized Patient Cleared - Qualified 100% FAS 08/19/2024 11/17/2024 99 99 Reason Comments Appointment Schedule follow up Reason Comments Refill Request Reason Comments Follow Up Reason Onset Date Comments Refill Request 04/08/2022 Reason Comments Consult Reason Comments Question Confirm labs and sarah humphrey Reason Comments Anxiety Reason Comments Medication Problem Reason Comments Post Op Pain Reason Comments Patient Question Reason Comments Post Op Reason Onset Date Comments Transition Of Care 05/13/2022 TCM Initial O utreach: 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 Reason Onset Date Comments Refill Request 02/12/2023 Reason Comments Follow Up Discuss progesterone Reason Comments Urinary Frequency Frequency, bladder p ain and burning x 5 days Reason Onset Date Comments Refill Request 06/12/2023 Reason Comments Radiology US Specialty Diagnoses / Procedures Referred By Contac t Referred To Contact US IMAGING Diagnoses Recurrent UTI Procedures US KIDNEY/BLADDER US RETROPERITONEAL REAL TIME W/[place] [address] [place] [address] [place] [id number] Referral ID Status Reason Start Date Expiration Date V isits Requested Visits Authorized [id number] Closed Auto-Generate d Referral 05/05/2023 06/03/2024 1 1 Reason Comments Obesity New Patient Specialty Diagnoses / Procedures Referred By Contac t Referred To Contact Diagnoses Excess weight Procedures CONSULT [facility] OFFICE/OUTPATIENT NEW HIGH MDM 60-74 MINUTES Navneet Russ MD [address] [place] [address] Referral ID Status Reason Start Date Expiration Date V isits Requested Visits Authorized [id number] Closed PCP Requested Referral 06/17/2023 06/16/2024 1 1 Reason Comments Anxiety Reason Onset Date Comments Refill Request 09/11/2023 Reason Onset Date Comments Refill Request 09/23/2023 Reason Onset Date Comments Refill Request 12/09/2023 Reason Comments GAHT follow up Reason Comments GAHT Reason Comments UTI Burning with urinati on, lower back and lower abd pressure x1 day Reason Comments Consult [facility] Reason Onset Date Comments Refill Request 03/01/2024 Reason Comments Sore Throat X1 week Reason Comments Obesity Reason Comments quote Reason Comments Urinary Frequency burning with urinati on x 1 week, stepped on a alen tack, right foot x this am Reason Comments Results Reason Comments Chest Congestion sinus pressure, thro at irritation and sob x 3 days Reason Onset Date Comments Refill Request 07/07/2024 Reason Onset Date Comments Refill Request 07/15/[address] Specialty Diagnoses / Procedures Referred By Contac t Referred To Contact CT IMAGING Diagnoses Facial pain Procedures CT FACIAL BONE/RIGO WO IVCON CT MAXLFCL AREA C-MATRL Leslie Ospina, VIDEO TAPE EDITOR.SLOT AMBASSADOR [address] [place] [address] Ct Imaging [id number] Referral ID Status Reason Start Date Expiration Date V isits Requested Visits Authorized [id number] Closed Auto-Generate d Referral 05/16/2021 06/15/2021 1 1 Reason Onset Date Comments Refill Request 10/16/2024 Reason Comments Follow Up HRT, allergy Reason Onset Date Comments Refill Request 04/14/2025 Reason Comments Weight Problem Reason Comments Fatigue Burning neck pain ra diating to front of head, fogginess, R side sinus pain, nausea, dizziness, light sensitive, Reason Comments ED Follow-up Reason Comments Nurse Triage Call Throat Problem Care Teams (unrecognized sec tion and content) 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 Specialty Start Date End Date Jared Schilling MD [address] [place] [address] 67323 PCP - General Internal Medicine 01/26/21 Jared Schilling MD [id number] [place] [address] Consulting Internal Medicine 01/09/21 Tatiana Ontiveros, RN Registered Nurse 04/20/21 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 Specialty Start Date End Date Jared Schilling MD [address] [place] [address] PCP - General Internal Medicine 01/26/21 Jared Schilling [place] [id number] [place] [address] Consulting Internal Medicine 01/09/21 Tatiana Ontiveros, RN Registered Nurse 04/20/21 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 Specialty Start Date End Date Jraed Schilling [place] [id number] [place] [address] 29705 PCP - General Internal Medicine 01/26/21 Jared Schilling MD [id number] [place] [address] 36940 Consulting Internal Medicine 01/09/21 Tatiana Ontiveros, RN Registered Nurse 04/20/21 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 Specialty Start Date End Date Jared Schilling MD [address] [place] [address] 45628 PCP - General Internal Medicine 01/26/21 Jared Schilling MD [address] [place] [address] 68065 Consulting Internal Medicine 01/09/21 Tatiana Ontiveros, RN Registered Nurse 04/20/21 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 Specialty Start Date End Date Jared Schilling MD [address] [place] [address] 35150 PCP - General Internal Medicine 01/26/21 Jared Schilling MD [address] [place] [address] 55202 Consulting Internal Medicine 01/09/21 Tatiana Ontiveros, PRISCILLA Registered Nurse 04/20/21 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 Specialty Start Date End Date Jared Schilling MD [address] [place] [address] 90617 PCP - General Internal Medicine 01/26/21 Jared Schilling MD [address] [place] [address] 10953 Consulting Internal Medicine 01/09/21 Tatiana Ontiveros, PRISCILLA Registered Nurse 04/20/21 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 Specialty Start Date End Date Jared Schilling MD [address] [place] [address] 47010 PCP - General Internal Medicine 01/26/21 Jared Schilling MD [address] [place] [address] 28498 Consulting Internal Medicine 01/09/21 Tatiana Ontiveros, RN Registered Nurse 04/20/21 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 Specialty Start Date End Date Jared Schilling MD [address] [place] [address] 99013 PCP - General Internal Medicine 01/26/21 Jared Schilling MD [address] [place] [address] 49434 Consulting Internal Medicine 01/09/21 Tatiana Ontiveros, RN Registered Nurse 04/20/21 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 Specialty Start Date End Date Jared Schilling MD [address] [place] [address] 01733 PCP - General Internal Medicine 01/26/21 Jared Schilling MD [address] [place] [address] 88696 Consulting Internal Medicine 01/09/21 Tatiana Ontiveros, RN Registered Nurse 04/20/21 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 Specialty Start Date End Date Jared Schilling MD [address] [place] [address] 25952 PCP - General Internal Medicine 01/26/21 Jared Schilling MD [address] [place] [address] 20347 Consulting Internal Medicine 01/09/21 Tatiana Ontiveros, RN Registered Nurse 04/20/21 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 Specialty Start Date End Date Jared Schilling MD [address] [place] [address] [phone] PCP - General Internal Medicine 01/26/21 Jared Schilling MD [address] [place] [address] 92819 Consulting Internal Medicine 01/09/21 Tatiana Ontiveros, RN Registered Nurse 04/20/21 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 Specialty Start Date End Date Jared Schilling MD [address] [place] [address] 72084 PCP - General Internal Medicine 01/26/21 Jared Schilling MD [address] [place] [address] 68921 Consulting Internal Medicine 01/09/21 Tatiana Ontiveros, RN Registered Nurse 04/20/21 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 Specialty Start Date End Date Jared Schilling MD [address] [place] [address] 67379 PCP - General Internal Medicine 01/26/21 Jared Schilling MD [address] [place] [address] 22982 Consulting Internal Medicine 01/09/21 Tatiana Ontiveros, RN Registered Nurse 04/20/21 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 Specialty Start Date End Date Jared Schilling MD [address] [place] [address] 17474 PCP - General Internal Medicine 01/26/21 Jared Schilling MD [address] [place] [address] 71838 Consulting Internal Medicine 01/09/21 Tatiana Ontiveros, PRISCILLA Registered Nurse 04/20/21 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 Specialty Start Date End Date Jared Schilling MD [address] [place] [address] 00275 PCP - General Internal Medicine 01/26/21 Jared Schilling MD [address] [place] [address] 71331 Consulting Internal Medicine 01/09/21 Tatiana Ontiveros, RN Registered Nurse 04/20/21 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 Specialty Start Date End Date Jared Schilling MD [address] [place] [address] 02453 PCP - General Internal Medicine 01/26/21 Jared Schilling MD [address] [place] [address] 80816 Consulting Internal Medicine 01/09/21 Tatiana Ontiveros, RN Registered Nurse 04/20/21 Team Status: Active Member Role Status Dates Martha NAGEL, PA Family Provider Active JARED SCHILLING Primary Care Provider Active Team Status: Inactive Member Role Status Dates Dr. Ankit Malloy DO Emergency Provider Active SHAKIR LITTLEJOHN Primary Care Provider Active 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 Specialty [place] [address] [place] [address] PCP - General Internal Medicine 01/26/21 Jared Schilling [id number] [place] [address]10 Consulting Internal Medicine 01/09/21 Tatiana Ontiveros, RN Registered Nurse 04/20/21 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 Specialty Start Date End Date Jared Schilling MD [id number] [place] [address] 50609 PCP - General Internal Medicine 01/26/21 Jared Schilling MD [id number] [place] [address] 41063 Consulting Internal Medicine 01/09/21 Tatiana Ontiveros, PRISCILLA Registered Nurse 04/20/21 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 Specialty Start Date End Date Jared Schilling MD PCP - General Internal Medicine 01/26/21 Jared Schilling MD Consulting Internal Medicine 01/09/21 Tatiana Ontiveros, RN Registered Nurse 04/20/21 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 Specialty Start Date End Date Jared Schilling MD PCP - General Internal Medicine 01/26/21 Jared Schilling MD Consulting Internal Medicine 01/09/21 Tatiana Ontiveros, RN Registered Nurse 04/20/21 Team Status: Inactive Member Role Status Dates Dr. Ankit Malloy DO Attending Provider, Emergency Pr ovider Active SHAKIR LITTLEJOHN Primary Care Provider Active Team Status: Inactive Member Role Status Dates Dr. Ankit Malloy DO Emergency Provider Active SHAKIR LITTLEJOHN Primary Care Provider Active 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 Specialty Start Date End Date Jared Schilling MD PCP - General Internal Medicine 01/26/21 Jared Schilling MD Consulting Internal Medicine 01/09/21 Tatiana Ontiveros, RN Registered Nurse 04/20/21 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 Specialty Start Date End Date Jared Schilling MD PCP - General Internal Medicine 01/26/21 Jared Schilling MD Consulting Internal Medicine 01/09/21 Tatiana Ontiveros, RN Registered Nurse 04/20/21 Team Status: Active Member Role Status Dates Martha Fraga PA, PA Family Provider Active No Primary Care Physician Primary Care Provider Active Team Status: Inactive Member Role Status Dates Dr. Ankit Malloy DO Attending Provider, Emergency Pr ovider Active SHAKIR LITTLEJOHN Primary Care Provider Active Team Status: Inactive Member Role Status Dates Dr. Suleman Artis DO Emergency Provider Active No Primary Care Physician Primary Care Provider Active 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 Specialty Start Date End Date Jared Schilling MD PCP - General Internal Medicine 01/26/21 Jared Schilling MD Consulting Internal Medicine 01/09/21 Tatiana Ontiveros, PRISCILLA Registered Nurse 04/20/21 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 Specialty Start Date End Date Jared Schilling MD PCP - General Internal Medicine 01/26/21 Jared Schilling MD Consulting Internal Medicine 01/09/21 Tatiana Ontiveros, RN Registered Nurse 04/20/21 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 Specialty Start Date End Date Jared Schilling MD PCP - General Internal Medicine 01/26/21 Jared Schilling MD Consulting Internal Medicine 01/09/21 Tatiana Seo, RN Registered Nurse 04/20/21 Team Status: Inactive Member Role Status Dates Dr. Dayne Cosme MD Emergency Provider Active SHAKIR LITTLEJOHN Primary Care Provider Active Team Status: Inactive Member Role Status Dates Dr. Suleman Artis DO Attending Provider, Emergency P omar Active No Primary Care Physician Primary Care Provider Active 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 Specialty Start Date End Date Jared Schilling MD PCP - General Internal Medicine 01/26/21 Jared Schilling MD Consulting Internal Medicine 01/09/21 Tatiana Seo, RN Registered Nurse 04/20/21 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 Specialty Start Date End Date Jared Schilling MD PCP - General Internal Medicine 01/26/21 Jared Schilling MD Consulting Internal Medicine 01/09/21 Tatiana Seo RN Registered Nurse 04/20/21 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 Specialty Start Date End Date Jared Schilling MD PCP - General Internal Medicine 01/26/21 Jared Schilling MD Consulting Internal Medicine 01/09/21 Tatiana Seo RN Registered Nurse 04/20/21 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 Specialty Start Date End Date Jared Schilling MD PCP - General Internal Medicine 01/26/21 Jared Schilling MD Consulting Internal Medicine 01/09/21 Tatiana Seo, RN Registered Nurse 04/20/21 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 Specialty Start Date End Date Jared Schilling MD PCP - General Internal Medicine 01/26/21 Jared Schilling MD Consulting Internal Medicine 01/09/21 Tatiana Seo, RN Registered Nurse 04/20/21 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 Specialty Start Date End Date Jared Schilling MD PCP - General Internal Medicine 01/26/21 Jared Schilling MD Consulting Internal Medicine 01/09/21 Tatiana Seo, RN Registered Nurse 04/20/21 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 Specialty Start Date End Date Jared Schilling MD PCP - General Internal Medicine 01/26/21 Jared Schilling MD Consulting Internal Medicine 01/09/21 Tatiana Seo, RN Registered Nurse 04/20/21 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 Specialty Start Date End Date Jared Schilling MD PCP - General Internal Medicine 01/26/21 Jared Schliling MD Consulting Internal Medicine 01/09/21 Tatiana Seo, RN Registered Nurse 04/20/21 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 Specialty Start Date End Date Jared Schilling MD PCP - General Internal Medicine 01/26/21 Jared Schilling MD Consulting Internal Medicine 01/09/21 Tatiana Seo, RN Registered Nurse 04/20/21 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 Specialty Start Date End Date Jared Schilling MD PCP - General Internal Medicine 01/26/21 Jared Schilling MD Consulting Internal Medicine 01/09/21 Tatiana Seo, RN Registered Nurse 04/20/21 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 Specialty Start Date End Date Jared Schilling MD PCP - General Internal Medicine 01/26/21 Jared Schilling MD Consulting Internal Medicine 01/09/21 Tatiana Seo, RN Registered Nurse 04/20/21 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 Specialty Start Date End Date Jared Schilling MD PCP - General Internal Medicine 01/26/21 Jared Schilling MD Consulting Internal Medicine 01/09/21 Tatiana Seo, RN Registered Nurse 04/20/21 Team Status: Inactive Member Role Status Dates Dr. Sweta Oneill MD Emergency Provider Active No Primary Care Physician Primary Care Provider Active 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 Specialty Start Date End Date Jared Schilling MD PCP - General Internal Medicine 01/26/21 Jared Schilling MD Consulting Internal Medicine 01/09/21 Tatiana Seo RN Registered Nurse 04/20/21 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 Specialty Start Date End Date Jared Schilling MD PCP - General Internal Medicine 01/26/21 Jared Schilling MD Consulting Internal Medicine 01/09/21 Tatiana Seo, RN Registered Nurse 04/20/21 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 Specialty Start Date End Date Jared Schilling MD PCP - General Internal Medicine 01/26/21 Jared Schilling MD Consulting Internal Medicine 01/09/21 Tatiana Seo, RN Registered Nurse 04/20/21 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 Specialty Start Date End Date Jared Schilling MD PCP - General Internal Medicine 01/26/21 Jared Schilling MD Consulting Internal Medicine 01/09/21 Tatiana Seo, RN Registered Nurse 04/20/21 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 Specialty Start Date End Date Jared Schilling MD PCP - General Internal Medicine 01/26/21 Jared Schilling MD Consulting Internal Medicine 01/09/21 Tatiana Seo, RN Registered Nurse 04/20/21 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 Specialty Start Date End Date Jared Schilling MD PCP - General Internal Medicine 01/26/21 Jared Schilling MD Consulting Internal Medicine 01/09/21 Tatiana Seo, RN Registered Nurse 04/20/21 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 Specialty Start Date End Date Jared Schilling MD PCP - General Internal Medicine 01/26/21 Jared Schilling MD Consulting Internal Medicine 01/09/21 Tatiana Seo, RN Registered Nurse 04/20/21 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 Specialty Start Date End Date Jared Schilling MD PCP - General Internal Medicine 01/26/21 Jared Schilling MD Consulting Internal Medicine 01/09/21 Tatiana Seo, RN Registered Nurse 04/20/21 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 Specialty Start Date End Date Jared Schilling MD PCP - General Internal Medicine 01/26/21 Jared Schilling MD Consulting Internal Medicine 01/09/21 Tatiana Seo, RN Registered Nurse 04/20/21 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 Specialty Start Date End Date Jared Schilling MD PCP - General Internal Medicine 01/26/21 Jared Schilling MD Consulting Internal Medicine 01/09/21 Tatiana Seo RN Registered Nurse 04/20/21 4 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 Specialty Start Date End Date Jared Schilling MD PCP - General Internal Medicine 01/26/21 Jared Schilling MD Consulting Internal Medicine 01/09/21 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 Specialty Start Date End Date Jared Schilling MD PCP - General Internal Medicine 01/26/21 Jared Schilling MD Consulting Internal Medicine 01/09/21 Tatiana Seo, RN Registered Nurse 04/20/21 4 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 Specialty Start Date End Date Jared Schilling MD PCP - General Internal Medicine 01/26/21 Jared Schilling MD Consulting Internal Medicine 01/09/21 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 Specialty Start Date End Date Jared Schilling MD PCP - General Internal Medicine 01/26/21 Jared Schilling MD Consulting Internal Medicine 01/09/21 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 Specialty Start Date End Date Jared Schilling MD PCP - General Internal Medicine 01/26/21 Jared Schilling MD Consulting Internal Medicine 01/09/21 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 Specialty Start Date End Date Jared Schilling MD PCP - General Internal Medicine 01/26/21 Jared Schilling MD Consulting Internal Medicine 01/09/21 [place] [address] [place] [address] Brokerage Branch Manager Internal Medicine 09/20/24 [place] [address] [place] [address] Brokerage Branch Manager Internal Medicine 09/20/24 Rianna Murillo DO [id number] [place] [address] Brokerage Branch Manager Internal Medicine 09/20/24 Rickie Cornell PA-C [id number] [place] [id number] Brokerage Branch Manager Internal Medicine 09/20/24 Judson Raines MD [id number] [place] [address] Brokerage Branch Manager Internal Medicine 09/20/24 Mary Staley [place] [id number] [place] [address] Brokerage Branch Manager Internal Medicine 09/20/24 Lázaro Mohan MD [address] [place] [address] [facility] Internal Medicine 09/20/24 Torsten Bhatti MD [id number] [place] [address] [facility] Internal Medicine 09/20/24 Cindy Oliveira MD [address] [place] [address] [facility] Internal Medicine 09/20/24 Kt Rivera MD [id number] [place] [address] [facility] Internal Medicine 09/20/24 Argenis Atkins MD [id number] [place] [id number] Brokerage Branch Manager Internal Medicine 09/20/24 [place] [address] [place] [address] Brokerage Branch Manager Internal Medicine 09/20/24 Carole Camargo MD [address] [place] [address] Brokerage Branch Manager Internal Medicine 09/20/24 Priscila Montelongo MD [address] [place] [address] Brokerage Branch Manager Internal Medicine 09/20/24 Ambrocio Barrett DO [address] [place] [address] Brokerage Branch Manager Internal Medicine 09/20/24 Cata Wayne MD [address] [place] [address] Brokerage Branch Manager Internal Medicine 09/20/24 Lissette Glasgow MD [address] [place] [address] Brokerage Branch Manager Internal Medicine 09/20/24 Ghanshyam Velarde MD [address] [place] [address] Brokerage Branch Manager Internal Medicine 09/20/24 Andry Luciano DO [address] [place] [address] Brokerage Branch Manager Internal Medicine 09/20/24 Honorio Morejon MD [address] [place] [address] [facility] Internal Medicine 09/20/24 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 Specialty Start Date End Date Jared Schilling MD PCP - General Internal Medicine 01/26/21 Jared Schilling MD Consulting Internal Medicine 01/09/21 Dimas Fisher MD [address] [place] [address] Brokerage Branch Manager Internal Medicine 09/20/24 Ken Clarke MD [address] [place] [address] Brokerage Branch Manager Internal Medicine 09/20/24 Rianna Murillo DO [id number] [place] [address] Brokerage Branch Manager Internal Medicine 09/20/24 Rickie Cornell PA-C 437[address] [place] [address] [facility] Internal Medicine 09/20/24 Judson Raines MD [address] [place] [address] [facility] Internal Medicine 09/20/24 Mary Staley MD [address] [place] [address] Brokerage Branch Manager Internal Medicine 09/20/24 Lázaro Mohan MD [address] [place] [address] [facility] Internal Medicine 09/20/24 Torsten Bhatti MD [address] [place] [address] Brokerage Branch Manager Internal Medicine 09/20/24 [place] [address] [place] [address] Brokerage Branch Manager Internal Medicine 09/20/24 Kt Rivera MD [address] [place] [address] Brokerage Branch Manager Internal Medicine 09/20/24 Argenis Atkins MD [id number] [place] [address] Brokerage Branch Manager Internal Medicine 09/20/24 [place] [address] [place] [address] Brokerage Branch Manager Internal Medicine 09/20/24 Carole Camargo MD [address] [place] [address] [facility] Internal Medicine 09/20/24 Priscila Montelongo MD [address] [place] [address] Brokerage Branch Manager Internal Medicine 09/20/24 Ambrocio Barrett DO [address] [place] [address] Brokerage Branch Manager Internal Medicine 09/20/24 Cata Wayne MD [address] [place] [address] Brokerage Branch Manager Internal Medicine 09/20/24 Lissette Glasgow MD [address] [place] [address] [facility] Internal Medicine 09/20/24 [place] [address] [place] [address] [facility] Internal Medicine 09/20/24 [place] [address] [place] [address] [facility] Internal Medicine 09/20/24 [place] [address] [place] [address] [facility] Internal Medicine 09/20/24 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 Specialty Start Date End Date Jared Schilling MD PCP - General Internal Medicine 01/26/21 Jared Schilling MD Consulting Internal Medicine 01/09/21 [place] [address] [place] [address] [facility] Internal Medicine 09/20/24 [place] [address] [place] [address] [facility] Internal Medicine 09/20/24 Rianna Murillo DO [id number] [place] [id number] [facility] [facility] 09/20/24 Rickie Cornell PA-C [address] [place] [address] [employer]ker[employer] Branch Manager Internal Medicine 09/20/24 Judson Raines MD [id number] [place] [address] [facility] Internal Medicine 09/20/24 Mary Staley MD [address] [place] [address] [facility] Internal Medicine 09/20/24 Lázaro Mohan MD [address] [place] [address] [facility] Internal Medicine 09/20/24 Torsten Bhatti MD [address] [place] [address] [facility] Internal Medicine 09/20/24 Cindy Oliveira MD [address] [place] [address] [facility] Internal Medicine 09/20/24 Kt Rivera MD [address] [place] [address] [facility] Internal Medicine 09/20/24 Argenis Atkins MD [id number] [place] [address] [facility] Internal Medicine 09/20/24 [place] [address] [place] [id number] [facility] Internal Medicine 09/20/24 Carole Camargo MD [address] [place], [place] [address] [employer]ker[employer] Branch Manager Internal Medicine 09/20/24 Priscila Montelongo MD [address] [place] [address] Brokerage Branch Manager Internal Medicine 09/20/24 Ambrocio Barrett DO [address] [place] [address] Brokerage Branch Manager Internal Medicine 09/20/24 Cata Wayne MD [address] [place] [address] Brokerage Branch Manager Internal Medicine 09/20/24 Lissette Glasgow MD [address] [place] [address] [facility] Internal Medicine 09/20/24 Ghanshyam Velarde MD [address] [place] [address] [facility] Internal Medicine 09/20/24 Andry Luciano DO [address] [place] [address] [facility] Internal Medicine 09/20/24 Honorio Morejon MD [address] [place] [address] [facility] Internal Medicine 09/20/24 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 Specialty Start Date End Date Jared Schilling MD PCP - General Internal Medicine 01/26/21 Jared Schilling MD Consulting Internal Medicine 01/09/21 [place] [address] [place] [id number] [facility] Internal Medicine 09/20/24 [place] [address] [place] [address] [facility] Internal Medicine 09/20/24 Rianna Murillo DO [id number] [place] [address] [facility] Internal Medicine 09/20/24 Rickie Cornell PA-C [address] [place] [address] [facility] Internal Medicine 09/20/24 [place] [address] [place] [address] [facility] Internal Medicine 09/20/24 [place] [address] [place] [address] [facility] Internal Medicine 09/20/24 Láz[place] [address] [place] [address] [facility] Internal Medicine 09/20/24 [place] [address] [place] [address] [facility] Internal Medicine 09/20/24 [place] [address] [place] [address] [employer] Branch Manager Internal Medicine 09/20/24 [place] [address] [place] [address] [employer]ker[employer] Branch Manager Internal Medicine 09/20/24 Argenis Atkins MD 10V433 [place] [address] [employer]ker[employer] Branch Manager Internal Medicine 09/20/24 [place] [address] [place] [address] Broker[employer] Branch Manager Internal Medicine 09/20/24 Carole Camargo MD [address] [place] [address] [employer]ker[employer] Branch Manager Internal Medicine 09/20/24 Priscila Montelongo MD [address] [place] [address] Brokerage Branch Manager Internal Medicine 09/20/24 Ambrocio Barrett DO [address] [place] [address] [employer]kerage Branch Manager Internal Medicine 09/20/24 Cata Wayne MD [address] [place] [address] [employer]kerage Branch Manager Internal Medicine 09/20/24 Lissette Glasgow MD [address] [place] [address] [employer]ker[employer] Branch Manager Internal Medicine 09/20/24 [place] [address] [place] [address] [employer]ker[employer] Branch Manager Internal Medicine 09/20/24 [place] [address] [place] [address] [facility] Internal Medicine 09/20/24 [place] [address] [place] [address] [facility] Internal Medicine 09/20/24 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 Specialty Start Date End Date Jared Schilling MD PCP - General Internal Medicine 01/26/21 Jared Schilling MD Consulting Internal Medicine 01/09/21 [place] [address] [place] [address] [facility] Internal Medicine 09/20/24 [place] [address] [place] [address] [facility] Internal Medicine 09/20/24 Rianna Murillo DO [id number] [place] [id number] [facility] Internal Medicine 09/20/24 Rickie Cornell PA-C 605[address] [place] [address] [facility] Internal Medicine 09/20/24 Judson Raines MD [id number] [place] [address] Broker[employer] Branch Manager Internal Medicine 09/20/24 Mary Staley MD [address] [place] [address] Broker[employer] Branch Manager Internal Medicine 09/20/24 Lázrao Mohan MD [address] [place] [address] Brokerage Branch Manager Internal Medicine 09/20/24 Torsten Bhatti MD [address] [place] [address] Brokerage Branch Manager Internal Medicine 09/20/24 Cindy Oliveira MD [address] [place] [address] Brokerage Branch Manager Internal Medicine 09/20/24 Kt Rivera MD [address] [place] [address] Brokerage Branch Manager Internal Medicine 09/20/24 Argenis Atkins MD [id number] [place] [address] Brokerage Branch Manager Internal Medicine 09/20/24 [place] [address] [place] [address] Brokerage Branch Manager Internal Medicine 09/20/24 Carole Camargo MD [address] [place], [place] [address] Brokerage Branch Manager Internal Medicine 09/20/24 Priscila Montelongo MD [address] [place] [address] Brokerage Branch Manager Internal Medicine 09/20/24 Ambrocio Barrett DO [address] [place] [address] Brokerage Branch Manager Internal Medicine 09/20/24 Cata Wayne MD [address] [place] [address] Brokerage Branch Manager Internal Medicine 09/20/24 Lissette Glasgow MD [address] [place] [address] [facility] Internal Medicine 09/20/24 Ghanshyam Velarde MD [address] [place] [address] [facility] Internal Medicine 09/20/24 Andry Luciano DO [address] [place] [address] [facility] Internal Medicine 09/20/24 Honorio Morejon MD [address] [place] [address] [facility] Internal Medicine 09/20/24 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 Specialty Start Date End Date Jared Schilling MD PCP - General Internal Medicine 01/26/21 Jared Schilling MD Consulting Internal Medicine 01/09/21 [place] [address] [place] [address] Brokerage Branch Manager Internal Medicine 09/20/24 [place] [address] [place] [address] Brokerage Branch Manager Internal Medicine 09/20/24 Rianna Murillo DO [id number] [place] [id number] [facility] Internal Medicine 09/20/24 Rickie Cornell PA-C 10572 [place] [address] [facility] Internal Medicine 09/20/24 Judson Raines MD [id number] [place] [address] [facility] Internal Medicine 09/20/24 Mary Staley MD [id number] [place] [address] [facility] Internal Medicine 09/20/24 Lázaro Mohan MD [id number] [place] [address] [facility] Internal Medicine 09/20/24 Torsten Bhatti MD [address] [place] [address] [facility] Internal Medicine 09/20/24 Cindy Oliveira MD [id number] [place] [address] Brokerage Branch Manager Internal Medicine 09/20/24 Kt Rivera MD [id number] [place] [address] Brokerage Branch Manager Internal Medicine 09/20/24 Argenis Atkins MD [id number] [place] [address] Brokerage Branch Manager Internal Medicine 09/20/24 [place] [address] [place] [address] [facility] Internal Medicine 09/20/24 Carole Camargo MD [address] [place] [address] [facility] Internal Medicine 09/20/24 Priscila Montelongo MD [address] [place] [address] [facility] Internal Medicine 09/20/24 Ambrocio Barrett DO [address] [place] [address] [facility] Internal Medicine 09/20/24 Cata Wayne MD [address] [place] [address] Brokerage Branch Manager Internal Medicine 09/20/24 Lissette Glasgow MD [address] [place] [address] [facility] Internal Medicine 09/20/24 Ghanshyam Velarde MD [address] [place] [address] Brokerage Branch Manager Internal Medicine 09/20/24 [place] [address] [place] [address] Brokerage Branch Manager Internal Medicine 09/20/24 [place] [address] [place] [address] [facility] Internal Medicine 09/20/24 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 Specialty Start Date End Date Jared Schilling MD PCP - General Internal Medicine 01/26/21 Jared Schilling MD Consulting Internal Medicine 01/09/21 [place] [address] [place] [address] [facility] Internal Medicine 09/20/24 [place] [address] [place] [address] Brokerage Branch Manager Internal Medicine 09/20/24 Rianna Murillo DO 20P800 [place] [address] Brokerage Branch Manager Internal Medicine 09/20/24 Rickie Cornell PA-C [address] [place] [id number] [facility] Internal Medicine 09/20/24 [place] [address] [place] [id number] Brokerage Branch Manager Internal Medicine 09/20/24 Mary Staley MD [address] [place] [address] Brokerage Branch Manager Internal Medicine 09/20/24 Lázaro Mohan MD [address] [place] [address] Brokerage Branch Manager Internal Medicine 09/20/24 Torsten Bhatti MD [address] [place] [address] [facility] Internal Medicine 09/20/24 Cindy Oliveira MD [address] [place] [address] Brokerage Branch Manager Internal Medicine 09/20/24 Kt Rivera MD [address] [place] [address] [facility] Internal Medicine 09/20/24 Argenis Atkins MD [id number] [place] [address] Brokerage Branch Manager Internal Medicine 09/20/24 Carole Camargo MD [address] [place] [address] Brokerage Branch Manager Internal Medicine 09/20/24 Priscila Montelongo MD [address] [place] [address] Brokerage Branch Manager Internal Medicine 09/20/24 Ambrocio Barrett DO [address] [place] [address] Brokerage Branch Manager Internal Medicine 09/20/24 Cata Wayne MD [address] [place] [address] Brokerage Branch Manager Internal Medicine 09/20/24 Lissette Glasgow MD [address] [place] [address] [facility] Internal Medicine 09/20/24 Ghanshyam Velarde MD [address] [place] [address] [facility] Internal Medicine 09/20/24 Andry Luciano DO [address] [place] [address] [facility] Internal Medicine 09/20/24 Honorio Morejon MD [address] [place] [address] [facility] Internal Medicine 09/20/24 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 Specialty Start Date End Date Jared Schilling MD PCP - General Internal Medicine 01/26/21 Jared Schilling MD Consulting Internal Medicine 01/09/21 Dimas [place] MD [address] [place] [address] [facility] Internal Medicine 09/20/24 [place] [address] [place] [address] Brokerage Branch Manager Internal Medicine 09/20/24 Rianna Murillo DO [id number] [place] [address] Brokerage Branch Manager Internal Medicine 09/20/24 Rickie Cornell PA-C [address]83[address] [place] [address] Brokerage Branch Manager Internal Medicine 09/20/24 [place] [address] [place] [address] Brokerage Branch Manager Internal Medicine 09/20/24 [place] [address] [place] [address] Brokerage Branch Manager Internal Medicine 09/20/24 Lázaro Mohan MD [id number] [place] [address] Brokerage Branch Manager Internal Medicine 09/20/24 [place] [address] [place] [address] Brokerage Branch Manager Internal Medicine 09/20/24 [place] [address] [place] [address] Brokerage Branch Manager Internal Medicine 09/20/24 [place] [address] [place] [address] Brokerage Branch Manager Internal Medicine 09/20/24 Argenis Atkins MD [id number] [place] [address] Brokerage Branch Manager Internal Medicine 09/20/24 Carole Camargo MD [address] [place] [address] Brokerage Branch Manager Internal Medicine 09/20/24 Priscila Montelongo MD [address] [place] [address] Brokerage Branch Manager Internal Medicine 09/20/24 Ambrocio Barrett DO [address] [place] [address] Brokerage Branch Manager Internal Medicine 09/20/24 Cata Wayne MD [address] [place] [address] Brokerage Branch Manager Internal Medicine 09/20/24 Lissette Glasgow MD [address] [place] [address] Brokerage Branch Manager Internal Medicine 09/20/24 Ghanshyam Velarde MD [address] [place] [address] Brokerage Branch Manager Internal Medicine 09/20/24 Andry Luciano DO [address] [place] [address] Brokerage Branch Manager Internal Medicine 09/20/24 Honorio Morejon MD [address] [place] [address] Brokerage Branch Manager Internal Medicine 09/20/24 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 Specialty Start Date End Date Jared Schilling MD PCP - General Internal Medicine 01/26/21 Jared Schilling MD Consulting Internal Medicine 01/09/21 Dimas [place] [id number] [place] [address] [facility] Internal Medicine 09/20/24 03/02/25 Ken Clarke MD [address] [place] [address] [facility] Internal Medicine 09/20/24 03/02/25 Rianna Murillo DO [id number] [place] [address] [facility] Internal Medicine 09/20/24 03/02/25 Rickie Cornell PA-C 27899 [place] [id number] [facility] Internal Medicine 09/20/24 Judson Raines MD [address] [place] [address] [facility] Internal Medicine 09/20/24 03/02/25 Mary Staley MD [address] [place] [address] [facility] Internal Medicine 09/20/24 03/02/25 Lázaro Mohan MD [address] [place], [place] [address] Brokerage Branch Manager Internal Medicine 09/20/24 03/02/25 Torsten Bhatti MD [id number] [place] [address] Brokerage Branch Manager Internal Medicine 09/20/24 03/02/25 Cindy Oliveira MD [id number] [place] [address] Brokerage Branch Manager Internal Medicine 09/20/24 03/02/25 Kt Rivera MD [id number] [place] [address] [facility] Internal Medicine 09/20/24 03/02/25 Argenis Atkins MD [id number] [place] [address] Brokerage Branch Manager Internal Medicine 09/20/24 03/02/25 [place] [address] [place] [address] Brokerage Branch Manager Internal Medicine 09/20/24 01/25/25 Carole Camargo MD [address] [place] [address] Brokerage Branch Manager Internal Medicine 09/20/24 03/02/25 Priscila Montelongo MD [address] [place] [address] [facility] Internal Medicine 09/20/24 03/02/25 Ambrocio Barrett DO [id number] [place] [address] Brokerage Branch Manager Internal Medicine 09/20/24 03/02/25 Cata Wayne MD [id number] [place] [address] Brokerage Branch Manager Internal Medicine 09/20/24 03/02/25 Lissette Glasgow MD [address] [place] [address] [facility] Internal Medicine 09/20/24 03/02/25 Ghanshyam Velarde MD [address] [place] [address] [facility] Internal Medicine 09/20/24 03/02/25 Andry Luciano DO [address] [place] [address] [facility] Internal Medicine 09/20/24 03/02/25 Honorio Morejon MD [address] [place] [address] Brokerage Branch Manager Internal Medicine 09/20/24 03/02/25 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 Specialty Start Date End Date Jared Schilling MD PCP - General Internal Medicine 01/26/21 Jared Schilling MD Consulting Internal Medicine 01/09/21 Rickie Cornell PA-C [address] [place] [address] Brokerage Branch Manager Internal Medicine 09/20/24 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 Specialty Start Date End Date Jared Schilling MD PCP - General Internal Medicine 01/26/21 Jared Schilling MD Consulting Internal Medicine 01/09/21 Rickie Cornell PA-C [id number] [place] [address] Brokerage Branch Manager Internal Medicine 09/20/24 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 Specialty Start Date End Date Jared Schilling MD PCP - General Internal Medicine 01/26/21 Jared Schilling MD Consulting Internal Medicine 01/09/21 Rickie Cornell PA-C [id number] [place] [address] Brokerage Branch Manager Internal Medicine 09/20/24 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 Specialty Start Date End Date Jared Schilling MD PCP - General Internal Medicine 01/26/21 Jared Schilling MD Consulting Internal Medicine 01/09/21 Rickie Cornell PA-C [id number] [place] [address] Brokerage Branch Manager Internal Medicine 09/20/24 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 Specialty Start Date End Date Jared Schilling MD PCP - General Internal Medicine 01/26/21 Jared Schilling MD Consulting Internal Medicine 01/09/21 Rickie Cornell PA-C [address] [place] [address] Brokerage Branch Manager Internal Medicine 09/20/24 Team Status: Active Member Role/Relationship Status Dates JARED SCHILLING Primary Care Provider Active Team Status: Inactive Member Role/Relationship Status Dates SHAKIR LITTLEJOHN Primary Care Provider Active Start: April 25, 2025 End: April 26, 2025 Dr. 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 Specialty Start Date End Date Jared Schilling MD PCP - General Internal Medicine 01/26/21 Jared Schilling MD Consulting Internal Medicine 01/09/21 Rickie Cornell PA-C [address]9594 [place] [address] Brokerage Branch Manager Internal Medicine 09/20/24 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 Specialty Start Date End Date Jared Schilling MD PCP - General Internal Medicine 01/26/21 Jared Schilling MD Consulting Internal Medicine 01/09/21 Rickie Cornell PA-C 41653 [place] [address] Brokerage Branch Manager Internal Medicine 09/20/24 Goals (unrecognized section and content) Goals may be documented in a n alternate sectionGoals may be documented in an alternate sectionGoals may be documented in an alternate sectionGoals may be documented in an alternate sectionGoals may be documented in an alternate sectionGoals may be documented in an alternate sectionGoals may be documented in an alternate section (unrecognized sect ion and content) No Status Records FoundNo Status Records Found INFORMATION SOURCE (unrecogn ized section and content) DATE CREATED AUTHOR 05/03/2025 [facility] DATE CREATED AUTHOR AUTHOR'S FRANKO KAY 05/14/2025 [facility] FOR RECORDS PERTAINING TO PATIENTS WHO ARE OR HAVE BEEN ENROLLED IN A CHEMICAL DEPENDENCY/SUBSTANCEABUSE PROGRAM, SOME INFORMATION MAY BE OMITTED. This clinical summary was aggregated from multiple sources. Caution should be exercised in using it in the provision of clinical care. This summary normalizes information from multiple sources, and as a consequence, information in this document may materially change the coding, format and clinical context of patient data. In addition, data may be omitted in some cases. CLINICAL DECISIONS SHOULD BE BASED ON THE PRIMARY CLINICAL RECORDS. [employer] provides no warranty or guarantee of the accuracy or completeness of information in this document.
[2025-05-29 19:00] VITALS: BP 107/64; PULSE 78; RESP 16; TEMP 36.8; O2SAT 100
== END 2025-05-29 19:45 | disposition home or self-care (01) ==
PROVIDERS: Emergency Provider Emergency Medicine; Visit Provider Emergency Medicine
DX: S06.0X1A Concussion with loss of consciousness of 30 minutes or less, initial encounter (principal); S16.1XXA Strain of muscle, fascia and tendon at neck level, initial encounter; S80.01XA Contusion of right knee, initial encounter; V43.62XA Car passenger injured in collision with other type car in traffic accident, initial encounter; Z87.891 Personal history of nicotine dependence
CPT/HCPCS: 70450; 70486; 72125; 73502; 73564; 73590; 96372; 99282